=== PATIENT | male | born 1965 | race Caucasian/White ===

== ENCOUNTER 2022-06-23 12:26 | Outpatient (RCR) | payer OTHER, SELFPAY | END 2022-10-24 08:00 | disposition home or self-care (01) | LOC: HO.WCC 12:26 | PROVIDERS: PCP Family Medicine; Visit Provider Physician Assistant | DX: E11.621 Type 2 diabetes mellitus with foot ulcer (principal); L97.512 Non-pressure chronic ulcer of other part of right foot with fat layer exposed; E11.40 Type 2 diabetes mellitus with diabetic neuropathy, unspecified; L84 Corns and callosities; M60.80 Other myositis, unspecified site | CPT/HCPCS: 11042; 87070; 87077; 87186; 87205; 97597; 99212 ==

== ENCOUNTER → 2022-07-24 11:25 | Outpatient (BNVA) | payer OTHER, SELFPAY | PROVIDERS: PCP Family Medicine; Visit Provider Dietitian, Registered | DX: E11.9 Type 2 diabetes mellitus without complications (principal) | CPT/HCPCS: 97802 ==

== ENCOUNTER 2022-08-04 15:21 | Outpatient (REF) | payer OTHER, SELFPAY ==
--- NOTE | ~2022-08-04 | XR_ITS ---
EXAMINATION: XR FOOT, RIGHT CLINICAL INFORMATION: Osteomyelitis of the great toe COMPARISON: None TECHNIQUE: AP, lateral, and oblique views of the right foot. FINDINGS: Bone alignment is normal. No fracture or dislocation. Mild degenerative changes at the first MTP joint and midfoot with joint space narrowing and osteophyte formation. There is soft tissue swelling over the medial side of the IP joint of the great toe. There is increased bony periosteal reaction of the distal phalanx. Appearance is questionable for osteomyelitis or septic arthritis. There are are large calcaneal spurs. There is soft tissue arterial calcification. XR/XR foot RT min 3V IMPRESSION: Soft tissue swelling over the medial side of the IP joint of the great toe and increased bony periosteal reaction. Appearance is questionable for osteomyelitis or septic arthritis. Mild degenerative changes at the first MTP joint and midfoot. 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
[2022-08-04 15:48] LABS: MANUAL DIFF FLAG NO
[2022-08-04 16:09] LABS: Basophils Absolute Auto 0.1 X10*3/uL (0.0-0.2); Basophils Percent Auto 0.6 % (0-2); Eosinophils Absolute Auto 0.3 X10*3/uL (0.0-0.4); Eosinophils Percent Auto 2.4 % (0-4); Hemoglobin 14.5 g/dl (14.0-18.0); Imm Gran Abs Auto 0.09 X10*3/uL (0.00-0.03); Imm Gran Pct Auto 0.9 % (0.0-0.4); Lymphocytes Absolute Auto 2.5 X10*3/uL (1.2-4.9); Lymphocytes Percent Auto 23.8 % (20-40); Mean Corpuscular HGB Conc 33.7 g/dl (31.0-36.0); Mean Corpuscular Hemoglobin 29.8 pg (27.0-33.0); Mean Corpuscular Volume 88.3 fL (80.0-98.0); Monocytes Percent Auto 9.1 % (2-11); Neutrophils Absolute Auto 6.7 x10*3/uL (2.0-8.3); Neutrophils Percent Auto 63.2 % (45-73); Platelet Count 339 X10*3/uL (160-400); Red Blood Count 4.87 X10*6/uL (4.60-5.80); Red Cell Distribution Width 13.1 % (11.0-16.0); White Blood Count 10.6 X10*3/uL (4.8-10.8)
[2022-08-04 16:16] LABS: Estimated Average Glucose 200 mg/dL; Hemoglobin A1c % 8.6 %
[2022-08-04 16:44] LABS: Anion Gap 14 (12-20); Blood Urea Nitrogen 16 mg/dL (9-16); C Reactive Protein 0.55 mg/dL (< or = 0.50); Calcium 9.8 mg/dL (8.4-10.2); Carbon Dioxide 27 mmol/L (22-29); Chloride 105 mmol/L (96-108); Estimated Glomerular Filt Rate > 60; Glucose Random 117 mg/dL (60-115); Potassium 4.6 mmol/L (3.3-5.1); Sodium 141 mmol/L (135-145)
[2022-08-04 17:08] LABS: Erythrocyte Sedimentation Rate 10 MM/HR (0-15)
== END 2022-08-04 15:22 | disposition home or self-care (01) ==
LOC: HO.XRAY 15:21
PROVIDERS: PCP Physician Assistant; Visit Provider Physician Assistant
DX: L97.512 Non-pressure chronic ulcer of other part of right foot with fat layer exposed (principal); M25.774 Osteophyte, right foot
CPT/HCPCS: 36415; 73630; 80048; 83036; 84134; 85025; 85652; 86140

== ENCOUNTER → 2022-08-25 12:23 | Outpatient (BNVA) | payer OTHER, SELFPAY | PROVIDERS: PCP Internal Medicine; Visit Provider Dietitian, Registered | DX: E11.9 Type 2 diabetes mellitus without complications (principal); Z79.4 Long term (current) use of insulin | CPT/HCPCS: 97803 ==

== ENCOUNTER 2022-08-26 15:05 | Outpatient (REF) | payer OTHER, SELFPAY ==
--- NOTE | ~2022-08-26 | MR_ITS ---
EXAMINATION: MRI FOOT WITHOUT AND WITH CONTRAST, RIGHT CLINICAL INFORMATION: Nonhealing wound great toe. Evaluate for osteomyelitis. COMPARISON: X-ray of the right foot. TECHNIQUE: MRI of the right foot is performed without and with contrast. Contrast dose 10 mL of Gadavist given intravenously. FINDINGS: GREAT TOE: There is ill-defined abnormal signal in the plantar medial subcutaneous soft tissues overlying the distal phalanx and IP joint. This is manifested by decreased T1 heterogeneous, slightly heterogeneous increased signal on T2 and diffuse enhancement. The may be some subtle irregularity of the skin/superficial subcutaneous soft tissues. The underlying bone is normal in morphology and signal intensity. There is no joint effusion. No definite arthrosis. The metatarsophalangeal joint and tarsometatarsal joint are normal. Remaining visualized bone and joints are normal. MUSCLES/TENDONS: There is mild fatty infiltration and increased T2 signal throughout the muscles of the visualized foot. This is suggestive of denervation myositis. Remaining subcutaneous soft tissues are normal. Neurovascular structures normal MR/MR foot RT wo/w con IMPRESSION: 1. No evidence of osteomyelitis. 2. Abnormality of the subcutaneous soft tissues overlying the distal phalanx of the great toe. This likely reflects an area of cellulitis with possible overlying superficial ulceration. 3. Mild abnormality of the muscles of the visualized foot suggestive of denervation myositis.
== END 2022-08-26 15:06 | disposition home or self-care (01) ==
LOC: HO.MRI 15:05
PROVIDERS: PCP Physician Assistant; Visit Provider Physician Assistant
DX: L97.512 Non-pressure chronic ulcer of other part of right foot with fat layer exposed (principal)
CPT/HCPCS: 73720; A9585

== ENCOUNTER → 2022-10-29 09:18 | Outpatient (BNVA) | payer OTHER, SELFPAY | PROVIDERS: PCP Family Medicine; Visit Provider Dietitian, Registered | DX: E11.649 Type 2 diabetes mellitus with hypoglycemia without coma (principal); Z79.4 Long term (current) use of insulin; Z71.3 Dietary counseling and surveillance | CPT/HCPCS: 97803 ==

== ENCOUNTER 2022-12-01 08:28 | Outpatient (REF) | payer OTHER, SELFPAY ==
[2022-12-01 08:52] LABS: MANUAL DIFF FLAG NO
[2022-12-01 09:04] LABS: Basophils Percent Auto 0.6 % (0-2); Eosinophils Absolute Auto 0.1 X10*3/uL (0.0-0.4); Eosinophils Percent Auto 1.1 % (0-4); Hematocrit 44.8 % (42.0-52.0); Imm Gran Abs Auto 0.05 X10*3/uL (0.00-0.03); Imm Gran Pct Auto 0.9 % (0.0-0.4); Lymphocytes Percent Auto 19.1 % (20-40); Mean Corpuscular HGB Conc 33.5 g/dl (31.0-36.0); Mean Corpuscular Hemoglobin 29.7 pg (27.0-33.0); Mean Corpuscular Volume 88.7 fL (80.0-98.0); Mean Platelet Volume 10.4 fL (9.4-12.4); Monocytes Absolute Auto 0.9 X10*3/uL (0.1-1.2); Monocytes Percent Auto 17.2 % (2-11); Neutrophils Absolute Auto 3.2 x10*3/uL (2.0-8.3); Neutrophils Percent Auto 61.1 % (45-73); Platelet Count 261 X10*3/uL (160-400); Red Blood Count 5.05 X10*6/uL (4.60-5.80); Red Cell Distribution Width 13.5 % (11.0-16.0); White Blood Count 5.3 X10*3/uL (4.8-10.8)
[2022-12-01 09:40] LABS: Alanine Aminotransferase 32 U/L (0-40); Albumin Level 4.5 g/dL (3.5-5.0); Alkaline Phosphatase 98 U/L (39-117); Anion Gap 15 (12-20); Aspartate Amino Transferase 26 U/L (5-37); Blood Urea Nitrogen 15 mg/dL (9-16); Calcium 9.5 mg/dL (8.4-10.2); Carbon Dioxide 24 mmol/L (22-29); Chloride 103 mmol/L (96-108); Estimated Glomerular Filt Rate > 60; Glucose Random 224 mg/dL (60-115); Potassium 4.4 mmol/L (3.3-5.1); Sodium 138 mmol/L (135-145); Total Protein 7.6 g/dL (6.5-8.0)
[2022-12-01 09:47] LABS: Creatinine Urine 123.75 mg/dL; Microalbum/Creatinine Ratio Ur 12.9 ug/mg cr
[2022-12-01 10:04] LABS: Free T4 (Free Thyroxine) 1.09 ng/dL (0.71-1.85); Thyroid Stimulating Hormone 1.21 uIU/mL (0.32-4.0)
[2022-12-01 10:08] LABS: Folate 16.4 ng/mL (> or = 4.0); Prostate Specific Antigen Scr 0.22 ng/mL (<0.05-4.0); Vitamin B12 361 pg/mL (200-900)
[2022-12-06 11:03] LABS: Testosterone, Total 415 ng/dL (250-1100)
== END 2022-12-01 08:29 | disposition home or self-care (01) ==
LOC: HO.LAB 08:28
PROVIDERS: PCP Internal Medicine; Visit Provider Internal Medicine
DX: Z12.5 Encounter for screening for malignant neoplasm of prostate (principal); N52.9 Male erectile dysfunction, unspecified; L97.519 Non-pressure chronic ulcer of other part of right foot with unspecified severity; E11.621 Type 2 diabetes mellitus with foot ulcer; E11.65 Type 2 diabetes mellitus with hyperglycemia
CPT/HCPCS: 36415; 80053; 82043; 82607; 82746; 84153; 84403; 84439; 84443; 85025

== ENCOUNTER 2023-01-05 11:34 | Outpatient (AMB) | payer OTHER, SELFPAY ==
--- NOTE | 2023-01-05 11:42 | AM.OFFWIN_ITS ---
Intake Vital Signs 01/05/23 11:44 BP 118/66 Blood Pressure Location Rt brachial Position Sitting Pulse 108 H Pulse Source Pulse Oximeter Temp 98.2 F Temp Source Temporal Artery Scan Pulse Oximetry (%) 98 Oxygen Delivery Method Room Air Intake Visit Reasons: EP, Diarrhea, low abdominal Intake Note: patient here because he has had diarrhea for about 3 days which has been freque nt. He mentions he gets bad pains in lower abdomen. Patient Tobacco Use Status: Never used Tobacco Allergies No Known Allergies Allergy (Verified 01/18/23 06:39) Medication List - Last Reconciled 01/18/23 by Shekhar Avila MD apple cider vinegar mg PO atorvastatin 10 mg PO BEDTIME cholecalciferol (vitamin D3) 25 mcg PO DAILY insulin glargine (Lantus Solostar U-100 Insulin) 50 units (0.5 mL) subcut QPM insulin lispro (Humalog KwikPen (U-100) Insulin) 30 units subcut TID lisinopril 5 mg PO DAILY metformin 1,000 mg PO BID multivitamin 1 tab PO DAILY niacin 100 mg PO BEDTIME omega 9-sne-nzu-fish oil 100-160-1,000 mg (Fish Oil) caps PO sildenafil 100 mg PO DAILY PRN turmeric mg PO Do you need a note to return to daycare/school/sports/work: No HPI EP, Diarrhea, low abdominal HPI Details 57-year-old male presents to the office for a sick visit. Patient is complaining of lower abdominal pain with diarrhea. Occasional cramping sensations. No fevers or chills. No weight loss. [facility] Medical History (Updated 01/12/23 @ 09:52 by JUANIS García) Asthma Surgical History (Updated 11/13/22 @ 14:28 by Seth Boyer MD) Aftercare following bilateral shoulder joint replacement surgery History of appendectomy Hx of tonsillectomy Family History (Updated 11/13/22 @ 14:14 by Leidy Rogers [facility]) Mother Emphysema lung Father Heart failure Brother Substance use disorder Mental health disorder Brother No problems noted. Brother No problems noted. Sister No problems noted. Daughter No problems noted. Son No problems noted. Son No problems noted. Social History (Updated 11/13/22 @ 14:29 by HANNAH Perkins Housing: House Alcohol intake: current Patient Tobacco Use Status: Never used Tobacco e-Cigarette/Vaping Use: Never Used Second Hand Smoke Exposure: No Current occupational status: employed Cognitive needs: No Hearing needs: No Vision needs: No Physical Exam Vital Signs: Last Vital Signs Temp 98.2 F 01/05/23 11:44 Pulse 108 H 01/05/23 11:44 BP 118/66 01/05/23 11:44 Pulse Ox 98 01/05/23 11:44 Oxygen Delivery Method Room Air 01/05/23 11:44 Const General: cooperative and healthy appearing Nutritional Appearance: well nourished Orientation/consciousness: patient oriented x3 Limitations: no limitations HEENT Head: Yes normal to inspection Eyes General: appearance normal, both eyes and all related structures Neck Neck: Yes normal visual inspection Chest Chest palpation & inspection: normal palpation of entire chest wall Resp Effort & Inspection: normal respiratory effort GI Other: Abdomen: Bowel sounds are normal. Nonspecific discomfort in the lower abdominal area. Neuro General: patient oriented x3 Assessment & Plan Assessment & Plan (1) Abdominal pain: Code(s): R10.9 - Unspecified abdominal pain Plan: Antibiotics started. Presumed diagnosis of colitis. Soft diet for the next few days. If symptoms do not improve to follow-up here. Orders: Orders Basic Metabolic Panel 01/05/23 R10.9 - Unspecified abdominal pain Liver Panel 01/05/23 R10.9 - Unspecified abdominal pain Complete Blood Count no Diff 01/05/23 R10.9 - Unspecified abdominal pain Erythrocyte Sedimentation Rate 01/05/23 R10.9 - Unspecified abdominal pain Medications: New ciprofloxacin HCl 500 mg PO BID 14 tabs 0RF Coding Level of Care Code Est Pt Level 3 (84049) Diagnoses Abdominal pain R10.9
[2023-01-05 11:44] VITALS: BP 118/66; PULSE 108; TEMP 36.8; O2SAT 98
== END 2023-01-05 13:40 | disposition home or self-care (01) ==
PROVIDERS: PCP Internal Medicine; Visit Provider Internal Medicine
DX: R10.9 Unspecified abdominal pain (principal)
CPT/HCPCS: 99213

== ENCOUNTER 2023-01-05 12:57 | Outpatient (REF) | payer OTHER, SELFPAY ==
[2023-01-05 16:21] LABS: Hematocrit 46.4 % (42.0-52.0); Hemoglobin 15.1 g/dl (14.0-18.0); Mean Corpuscular HGB Conc 32.5 g/dl (31.0-36.0); Mean Corpuscular Hemoglobin 29.5 pg (27.0-33.0); Mean Corpuscular Volume 90.6 fL (80.0-98.0); Mean Platelet Volume 10.9 fL (9.4-12.4); Platelet Count 304 X10*3/uL (160-400); Red Blood Count 5.12 X10*6/uL (4.60-5.80); Red Cell Distribution Width 13.3 % (11.0-16.0); White Blood Count 11.6 X10*3/uL (4.8-10.8)
[2023-01-05 16:57] LABS: Alanine Aminotransferase 27 U/L (0-40); Albumin Level 4.6 g/dL (3.5-5.0); Alkaline Phosphatase 112 U/L (39-117); Anion Gap 14 (12-20); Aspartate Amino Transferase 19 U/L (5-37); Bilirubin Direct 0.2 mg/dL (0.0-0.5); Bilirubin Total 0.7 mg/dL (0.0-1.0); Blood Urea Nitrogen 15 mg/dL (9-16); Calcium 9.8 mg/dL (8.4-10.2); Carbon Dioxide 24 mmol/L (22-29); Chloride 103 mmol/L (96-108); Estimated Glomerular Filt Rate > 60; Glucose Random 181 mg/dL (60-115); Potassium 4.4 mmol/L (3.3-5.1); Sodium 137 mmol/L (135-145); Total Protein 7.6 g/dL (6.5-8.0)
[2023-01-05 16:58] LABS: Erythrocyte Sedimentation Rate 16 MM/HR (0-15)
[2023-01-06 12:18] LABS: Creatinine Urine 143.46 mg/dL
== END 2023-01-05 12:58 | disposition home or self-care (01) ==
LOC: HO.HMGCLDS 12:57
PROVIDERS: PCP Internal Medicine; Visit Provider Internal Medicine
DX: R10.9 Unspecified abdominal pain (principal)
CPT/HCPCS: 36415; 80048; 80076; 85027; 85652

== ENCOUNTER 2023-01-12 07:25 | Outpatient (AMB) | payer OTHER, SELFPAY ==
[2023-01-12 07:35] VITALS: BP 138/82; PULSE 72; O2SAT 97; BMI 32.7
--- NOTE | 2023-01-12 07:35 | MHC.PC.OV ---
Vital Signs 01/12/23 07:35 Height 5 ft 10 in Weight 228 lb BMI 32.7 BP 138/82 Blood Pressure Location Lt brachial Position Sitting Pulse 72 Pulse Source Pulse Oximeter Pulse Oximetry (%) 97 Oxygen Delivery Method Room Air Intake Visit Reasons: diarrhea for 2 weeks Allergies No Known Allergies Allergy (Verified 01/12/23 07:35) Tobacco use date assessed: 11/13/22 Dental Screening Dental Screen Date: 01/12/23 Did you have a dental visit in the last 12 months?: Yes Did you have a dental problem in the last 6 months where you did not have access to dental care?: No Was dental information given to patient?: Patient has dentist HPI HPI Comments History of Present Illness Details 57-year-old male past medical history significant for hypercholesteremia, T2DM, ED and obesity. Patient of Dr. Boyer last seen in November. Patient presents today for diarrhea x 2 weeks. Patient was seen in the walk in clinic for this on 01/05/23 labs were obtained wBC slightly elevated and ESR . otherwise unremarkable. Patient was treated with ciproflaxacin for possible diverticulitis. Patient reports yesterday x 2 and seems to be forming up. Denies abd pain, denies blood in stool. states stool is dark but not black or tarry. Discussed further testing with stool studies and referral to GI. Patient reports given his stools starting to form up he will hold off on further stool studies and referral to GI at this time. Last year Colonscopy 1 year ago: Normal FORMERLY [facility] Medical History (Updated 01/12/23 @ 09:52 by JUANIS García) Asthma Surgical History (Updated 11/13/22 @ 14:28 by Seth Boyer MD) Aftercare following bilateral shoulder joint replacement surgery History of appendectomy Hx of tonsillectomy Family History (Updated 11/13/22 @ 14:14 by Leidy Rogers CMA) Mother Emphysema lung Father Heart failure Brother Substance use disorder Mental health disorder Brother No problems noted. Brother No problems noted. Sister No problems noted. Daughter No problems noted. Son No problems noted. Son No problems noted. Social History (Updated 11/13/22 @ 14:29 by Seth Boyer MD) Housing: House Alcohol intake: current Patient Tobacco Use Status: Never used Tobacco e-Cigarette/Vaping Use: Never Used Second Hand Smoke Exposure: No Current occupational status: employed Cognitive needs: No Hearing needs: No Vision needs: No Questionnaire PHQ-9 Over the last 2 weeks, how often have you been bothered by any of the following problems? 1. Little interest or pleasure in doing things: not at all 2. Feeling down, depressed, or hopeless: not at all 3. Trouble falling or staying asleep, or sleeping too much: not at all 4. Feeling tired or having little energy: not at all 5. Poor appetite or overeating: not at all 6. Feeling bad about yourself - or that you are a failure or have let yourself or your family down: not at all 7. Trouble concentrating on things, such as reading the newspaper or watching television: not at all 8. Moving or speaking so slowly that other people could have noticed. Or the opposite - being so fidgety or restless that you have been moving around a lot more than usual: not at all 9. Thoughts that you would be better off or of hurting yourself in some way: not at all Total score: 0 Depression Screening Interpretation: Negative Source: Developed by Drs. Yovani Collazo, Deion Chapman and colleagues, with an educational valeriy from [employer]. Thrive Questionnaire Date Thrive assessed: 11/13/22 AUDIT C Alcohol Use Questionnaire (AUDIT-C) 1. How often do you have a drink containing alcohol?: 2-3 times a week 2. How many drinks containing alcohol do you have on a typical day when you are drinking?: 1 or 2 3. How often do you have six or more drinks on one occasion?: Never Total Score: 3 ELIU-7 AMB Questionnaire ELIU-7 Date ELIU - 7 assessed: 11/13/22 Source: Developed by Drs. Yovani Collazo, Deion Chapman and colleagues, with an educational valeriy from [employer]. Review of Systems Const Denies chills, Denies fatigue, Denies fever(s) and Denies poor appetite Eyes Denies no additional complaints ENT Reports Normal hearing present Card Denies chest pain, Denies syncope, Denies rapid heart rate and Denies dyspnea Resp Denies cough and Denies dyspnea GI Denies change in stool character, Denies constipation, Denies diarrhea, Denies nausea and Denies vomiting Denies dysuria, Denies urinary frequency and Denies urinary urgency Neuro Reports Normal hearing present, Denies confusion and Denies syncope Psych Denies confusion Endo Denies fatigue Physical exam (Primary Care) Vital Signs: Last Vital Signs Pulse 72 01/12/23 07:35 BP 138/82 01/12/23 07:35 Pulse Ox 97 01/12/23 07:35 Oxygen Delivery Method Room Air 01/12/23 07:35 BMI result Body Mass Index 32.7 Tobacco/Smoking Status: Tobacco use Status Tobacco use date assessed 11/13/22 01/12/23 07:39 Patient Tobacco Use Status Never used Tobacco 01/12/23 07:39 e-Cigarette/Vaping Use Never Used 01/12/23 07:39 PHQ-9: PHQ-9 Score PHQ-9: Total score 0 01/12/23 07:45 Depression Screening Interpretation: Negative Thrive Assessment: Date of Thrive Assessment Date Thrive assessed 11/13/22 01/12/23 07:39 Const General: No confusion Orientation/consciousness: No confusion HENMT Head: Yes normocephalic and Yes atraumatic Eyes Conjunctivae: conjunctivae normal Chest Chest palpation & inspection: normal inspection of the chest Resp Effort & Inspection: normal respiratory effort Auscultation: clear to auscultation bilaterally, no crackles, no rhonchi and no wheezes Cardio Rate: regular rate Rhythm: regular rhythm Heart sounds: S1 normal heart sound present and S2 normal heart sound present Peripheral pulses: dorsalis pedis present GI Inspection: Yes normal to inspection Neuro General: No confusion Cranial nerves: Yes Normal hearing present Extrem General: No edema Assessment and Plan Assessment & Plan (1) T2DM (type 2 diabetes mellitus): Code(s): E11.9 - Type 2 diabetes mellitus without complications Plan: Continue on current medications. Continue follow low-carbohydrate diet (2) Hypercholesterolemia: Code(s): E78.00 - Pure hypercholesterolemia, unspecified Plan: Continue on atorvastatin 10 mg at bedtime. Avoid fried foods, chicken skin, eggs, butter,margarine, pastries and? red meat. (3) Diarrhea: Code(s): R19.7 - Diarrhea, unspecified Plan: Given patient states too low starting to form up only had 2 bowel movements yesterday which is normal for him he will hold off on further workup this time with stool studies and referral to Gastroenterology. Signs and symptoms reviewed with patient when to follow-up with PCP or seek medical attention Plan Keep scheduled follow up with pcp in 1 month Coding Level of Care Code Est Pt Level 3 (25863) Diagnoses T2DM (type 2 diabetes mellitus) E11.9 Hypercholesterolemia E78.00 Diarrhea R19.7
== END 2023-01-12 08:32 | disposition home or self-care (01) ==
PROVIDERS: PCP Internal Medicine; Visit Provider Nurse Practitioner Family
DX: E11.9 Type 2 diabetes mellitus without complications (principal); E78.00 Pure hypercholesterolemia, unspecified; R19.7 Diarrhea, unspecified
CPT/HCPCS: 99213

== ENCOUNTER 2023-02-03 09:51 | Outpatient (AMB) | payer OTHER, SELFPAY ==
--- NOTE | 2023-02-03 10:19 | A.OFFVIS_ITS ---
Intake Intake Visit Reasons: T2DM Allergies No Known Allergies Allergy (Verified 01/18/23 06:39) HPI Nutrition Presentation Details Pt presents for MNT f/u for T2DM Pt reports doing well. Reports having better understanding of relationship of BG to carb and relationship of prandial insulin. No BG download available to review today. Has met with new PCP, most recent A1c at 6.9 % on 11/2022. Typical meal: large cup of coffee black no sugar added 3:30 am L: [employer] Mediterranean salad pork breaded and salad or Dinner : soups with rice/beans Lithuanian Tea varies turmeric, applecider ,sometimes sweets , glucerna shake Most Recent Diabetes Results: Microalb/Creat Ratio 12.9 ug/mg cr 12/01/22 Creatinine 0.81 mg/dL (0.5-1.4) 01/05/23 Blood Urea Nitrogen 15 mg/dL (9-16) 01/05/23 Sodium 137 mmol/L (135-145) 01/05/23 Potassium 4.4 mmol/L (3.3-5.1) 01/05/23 Chloride 103 mmol/L (96-108) 01/05/23 Carbon Dioxide 24 mmol/L (22-29) 01/05/23 Calcium 9.8 mg/dL (8.4-10.2) 01/05/23 AST 19 U/L (5-37) 01/05/23 ALT 27 U/L (0-40) 01/05/23 Total Protein 7.6 g/dL (6.5-8.0) 01/05/23 Albumin 4.6 g/dL (3.5-5.0) 01/05/23 PENDING SALE TO [facility] Medical History (Updated 01/12/23 @ 09:52 by JUANIS García) Asthma Surgical History (Updated 11/13/22 @ 14:28 by Seth Boyer MD) Aftercare following bilateral shoulder joint replacement surgery History of appendectomy Hx of tonsillectomy Family History (Updated 11/13/22 @ 14:14 by Leidy Rogers CMA) Mother Emphysema lung Father Heart failure Brother Substance use disorder Mental health disorder Brother No problems noted. Brother No problems noted. Sister No problems noted. Daughter No problems noted. Son No problems noted. Son No problems noted. Social History (Updated 11/13/22 @ 14:29 by Seth Boyer MD) Housing: House Alcohol intake: current Patient Tobacco Use Status: Never used Tobacco e-Cigarette/Vaping Use: Never Used Second Hand Smoke Exposure: No Current occupational status: employed Cognitive needs: No Hearing needs: No Vision needs: No Assessment & Plan Assessment & Plan (1) T2DM (type 2 diabetes mellitus): Code(s): E11.9 - Type 2 diabetes mellitus without complications Plan: Review role of protein in diet, wound healing, continue healthy plate method concepts ? Used wt : 103 kg Est kcal as per MSJ: 2231-250 = 1918 (40% carb, 30% fat/prot) Est fluid needs: 2575 ml/d (25 ml/kg bw) Rec fiber: increase to 8-10 g per day and gradually increase to 35 g or as tolerated Rec Na: < 2000 mg /d Educate patient on: (R= Reviewed, V = verbalizes understanding N/R= Needs review N/A= not applicable) * Food sources of carbohydrates and serving adequate serving sizes : R , V * Difference between complex carbohydrates and simple carbohydrates, role of fiber: R * protein sources of foods and relationship to wound healing, gluc control: R, V * Differences between fats (MUFA/PUFA/saturated fats, trans fats) and food sources of various fats: R, Basic info * Food sources of sodium and salt and healthy modifications for heart health and kidney health: N/R * Vitamins and minerals: R * How to interpret food labels: R * Healthy Plate method concept: R * Physical activity: benefits and precaution: R, * Blood glucose goal R: fasting blood glucose 80-130, 2 hours after a meal : 80-180 * Risks associated with hypoglycemia, Prevention of hypoglycemia, treatment: R, V * Relationship of caffeine and bg level: R Patient Instructions: Continue following healthy plate method, counting g of carbohydrates goal 75-90 at meal time, Reduce snack 0-15 g carb Reduce on caffeine intake keep hydrated by having water with meals /snacks Coding Level of Care Code Nutr Indiv Subseq (13398) Diagnoses T2DM (type 2 diabetes mellitus) E11.9 Time Spent (min) 20
== END 2023-02-03 10:46 | disposition home or self-care (01) ==
PROVIDERS: PCP Internal Medicine; Referring Provider Internal Medicine; Visit Provider Dietitian, Registered
DX: E11.9 Type 2 diabetes mellitus without complications (principal)

== ENCOUNTER → 2023-02-03 09:51 | Outpatient (BNVA) | payer OTHER, SELFPAY | PROVIDERS: Visit Provider Dietitian, Registered | DX: E11.9 Type 2 diabetes mellitus without complications (principal); Z71.3 Dietary counseling and surveillance | CPT/HCPCS: 97803 ==

== ENCOUNTER 2023-03-04 13:34 | Outpatient (AMB) | payer OTHER, SELFPAY ==
[2023-03-04 13:45] VITALS: BP 138/72; PULSE 80; O2SAT 98; BMI 32.9
--- NOTE | 2023-03-04 13:45 | A.OFFPC_ITS ---
Vital Signs 03/04/23 13:45 Height 5 ft 10 in Weight 229 lb BMI 32.9 BP 138/72 Blood Pressure Location Lt brachial Position Sitting Pulse 80 Pulse Source Pulse Oximeter Pulse Oximetry (%) 98 Oxygen Delivery Method Room Air Intake Visit Reasons: PE Allergies No Known Allergies Allergy (Verified 03/04/23 13:45) Medication List - Last Reconciled 03/04/23 by Seth Boyer MD apple cider vinegar mg PO atorvastatin 10 mg PO BEDTIME cholecalciferol (vitamin D3) 25 mcg PO DAILY insulin glargine (Lantus Solostar U-100 Insulin) 50 units (0.5 mL) subcut QPM insulin lispro (Humalog KwikPen (U-100) Insulin) 30 units (0.3 mL) subcut TID lisinopril 5 mg PO DAILY metformin 1,000 mg PO BID multivitamin 1 tab PO DAILY niacin 100 mg PO BEDTIME sildenafil 100 mg PO DAILY PRN turmeric mg PO Tobacco use date assessed: 11/13/22 Dental Screening Dental Screen Date: 03/04/23 Did you have a dental visit in the last 12 months?: Yes Did you have a dental problem in the last 6 months where you did not have access to dental care?: No Was dental information given to patient?: Patient has dentist HPI PE HPI Details 57-year-old obese male with diabetes raji litus hypercholesterolemia coming in for physical exam. Last seen in January 2023 patient is up-to-date with colonoscopy. Patient has right foot toe wound seeing wound care [facility] Medical History (Updated 03/04/23 @ 14:40 by Seth Boyer MD) Diarrhea Blood pressure elevated without history of HTN Asthma Surgical History (Updated 11/13/22 @ 14:28 by Seth Boyer MD) Hx of tonsillectomy Aftercare following bilateral shoulder joint replacement surgery History of appendectomy Family History (Updated 11/13/22 @ 14:14 by Leidy Rogers CMA) Mother Emphysema lung Father Heart failure Brother Substance use disorder Mental health disorder Brother No problems noted. Brother No problems noted. Sister No problems noted. Daughter No problems noted. Son No problems noted. Son No problems noted. Social History (Updated 03/04/23 @ 14:27 by Seth Boyer MD) Housing: House Alcohol intake: current Patient Tobacco Use Status: Never used Tobacco e-Cigarette/Vaping Use: Never Used Second Hand Smoke Exposure: No Current occupational status: employed Cognitive needs: No Hearing needs: No Vision needs: Yes Questionnaire PHQ-9 Over the last 2 weeks, how often have you been bothered by any of the following problems? 1. Little interest or pleasure in doing things: not at all 2. Feeling down, depressed, or hopeless: not at all 3. Trouble falling or staying asleep, or sleeping too much: not at all 4. Feeling tired or having little energy: not at all 5. Poor appetite or overeating: not at all 6. Feeling bad about yourself - or that you are a failure or have let yourself or your family down: not at all 7. Trouble concentrating on things, such as reading the newspaper or watching television: not at all 8. Moving or speaking so slowly that other people could have noticed. Or the opposite - being so fidgety or restless that you have been moving around a lot more than usual: not at all 9. Thoughts that you would be better off or of hurting yourself in some way: not at all Total score: 0 Depression Screening Interpretation: Negative Source: Developed by Drs. Yovani Collazo, Deion Chapman and colleagues, with an educational valeriy from [employer]. Thrive Questionnaire Date Thrive assessed: 11/13/22 AUDIT C Alcohol Use Questionnaire (AUDIT-C) 1. How often do you have a drink containing alcohol?: 2-3 times a week 2. How many drinks containing alcohol do you have on a typical day when you are drinking?: 1 or 2 3. How often do you have six or more drinks on one occasion?: Never Total Score: 3 ELIU-7 AMB Questionnaire ELIU-7 Date ELIU - 7 assessed: 11/13/22 Source: Developed by Drs. Yovani Collazo, Deion Chapman and colleagues, with an educational valeriy from [employer]. Review of Systems Const Denies poor appetite and Denies weakness Eyes Denies no additional complaints ENT Reports Normal hearing present, Denies dizziness, Denies nasal congestion, Denies tinnitus and Denies sore throat Card Denies chest pain, Denies syncope, Denies rapid heart rate and Denies dyspnea Resp Denies cough and Denies dyspnea GI Denies change in stool character, Reports constipation, Denies diarrhea, Denies nausea and Denies vomiting Denies dysuria and Denies urinary frequency Neuro Reports Normal hearing present, Denies confusion, Denies dizziness, Denies syncope and Denies weakness Psych Denies confusion Physical exam (Primary Care) Vital Signs: Last Vital Signs Pulse 80 03/04/23 13:45 BP 138/72 03/04/23 13:45 Pulse Ox 98 03/04/23 13:45 Oxygen Delivery Method Room Air 03/04/23 13:45 BMI result Body Mass Index 32.9 Tobacco/Smoking Status: Tobacco use Status Tobacco use date assessed 11/13/22 03/04/23 13:46 Patient Tobacco Use Status Never used Tobacco 03/04/23 13:46 e-Cigarette/Vaping Use Never Used 03/04/23 13:46 rectal held due to recent coln test PHQ-9: PHQ-9 Score PHQ-9: Total score 0 03/04/23 14:22 Depression Screening Interpretation: Negative Thrive Assessment: Date of Thrive Assessment Date Thrive assessed 11/13/22 03/04/23 13:46 Const General: alert and awake; No confusion Orientation/consciousness: No confusion HENMT Other: impacted cerumen bilateral Head: Yes normocephalic Ears: external ears normal Face and sinus: Yes normal facial exam Mouth: moist mucous membranes Throat: Yes tonsils normal Eyes Conjunctivae: conjunctivae normal Pupils: Equal, round and reactive pupils present and Pupil accommodation reflex normal Direct Ophthalmoscopy: normal light reflex Neck Neck: No lymphadenopathy Thyroid: Thyroid normal Chest Chest palpation & inspection: normal inspection of the chest Resp Effort & Inspection: normal respiratory effort and no audible wheezes Auscultation: clear to auscultation bilaterally, no crackles, no wheezes and lung sounds not diminished Cardio Rate: regular rate Rhythm: regular rhythm Peripheral pulses: radial pulses present and dorsalis pedis present GI Palpation (GI): no masses Auscultation: normal bowel sounds and normoactive bowel sounds Rectal Exam - Male: Yes deferred Skin General skin exam: no rashes or lesions noted Rashes: no rashes Neuro General: deep tendon reflexes 2+ bilaterally and No confusion Cranial nerves: Yes Equal, round and reactive pupils present, Yes Midline tongue present, Yes Normal hearing present and Yes Ability to bilaterally elevate shoulders present Cognition (Neuro): normal cognition Gait exam (Neuro): Normal gait present Motor exam (neuro): 5/5 motor strength present throughout Deep tendon reflexes (DTR's): Right brachioradialis reflex intensity grade: 2+, Left brachioradialis reflex intensity grade: 2+, Right patellar reflex intensity grade: 2+ and Left patellar reflex intensity grade: 2+ Extrem General: No edema Results AMB Hemoglobin A1c AMB Hemoglobin A1c 7.4 % Last Edit by Leidy Rogers CMA on 03/04/23 14 :05 Results Reviewed Results Reviewed: Laboratory Last Values Hgb A1c (Clinic) 7.4 % (4.0-6.0) H 03/04/23 13:46 Assessment and Plan Assessment & Plan (1) Annual physical exam: Code(s): Z00.00 - Encounter for general adult medical examination without abnormal findings (2) Type 2 diabetes mellitus with hyperglycemia: Code(s): E11.65 - Type 2 diabetes mellitus with hyperglycemia Plan: Decrease the amount of carbohydrate intake, pasta, bread, rice and potatoes are all sugar and that is aside from all the sweet stuff, remember that fruits are good but they are Sweet also. Hemoglobin A1c goal of less than 6.5. Patient on Lantus and Humalog and metformin a 1000 mg twice a day. Lisinopril 5 mg once a day (3) Hypercholesterolemia: Code(s): E78.00 - Pure hypercholesterolemia, unspecified Plan: Avoid fried foods, chicken skin, eggs, butter margarine, pastries and meat. Be it pork or. beef they have a lot of cholesterol LDL goal of less than 100 and triglyceride of less than 150 patient is taking atorvastatin 10 mg once a day but I do not see any blood work (4) Obesity (BMI 30-39.9): Code(s): E66.9 - Obesity, unspecified Plan: Diet and exercise (5) Impacted cerumen of both ears: Code(s): H61.23 - Impacted cerumen, bilateral Plan: will try over the counter Orders: Orders AMB Hemoglobin A1c Today Z13.9 - Encounter for screening, unspecified Lipid Panel Today E78.00 - Pure hypercholesterolemia, unspecified Medications: New semaglutide (Ozempic) for 4 weeks 0.25 mg (0.368 mL) subcut QWEEK 3 mL 2RF E11.65 - Type 2 diabetes mellitus with hyperglycemia atorvastatin 10 mg PO BEDTIME 90 tabs 3RF E11.65 - Type 2 diabetes mellitus with hyperglycemia lisinopril 5 mg PO DAILY 90 tabs 3RF E11.65 - Type 2 diabetes mellitus with hyperglycemia metformin 1,000 mg PO BID 180 tabs 3RF E11.65 - Type 2 diabetes mellitus with hyperglycemia Changed From insulin glargine (Lantus Solostar U-100 Insulin) 50 units (0.5 mL) subcut QPM 15 mL 11RF E11.9 - Type 2 diabetes mellitus without complications To insulin glargine (Lantus Solostar U-100 Insulin) or as directed 50 units (0.5 mL) subcut QPM 15 ea 3RF E11.9 - Type 2 diabetes mellitus without complications From insulin lispro (Humalog KwikPen (U-100) Insulin) 30 units (0.3 mL) subcut TID 30 mL 3RF E11.9 - Type 2 diabetes mellitus without complications To insulin lispro (Humalog KwikPen (U-100) Insulin) or as directed 30 units (0.3 mL) subcut TID 45 mL 3RF E11.9 - Type 2 diabetes mellitus without complications Refilled sildenafil administer 30 minutes to 4 hours before activity 100 mg PO DAILY PRN 14 tabs 11RF sexual activity N52.9 - Male erectile dysfunction, unspecified Coding Level of Care Code Est Pt Prev Care 40-64y(83144) Diagnoses Annual physical exam Z00.00 Type 2 diabetes mellitus with hyperglycemia E11.65 Hypercholesterolemia E78.00 Obesity (BMI 30-39.9) E66.9 Impacted cerumen of both ears H61.23
== END 2023-03-04 14:49 | disposition home or self-care (01) ==
PROVIDERS: PCP Internal Medicine; Visit Provider Internal Medicine
DX: Z00.00 Encounter for general adult medical examination without abnormal findings (principal); E11.65 Type 2 diabetes mellitus with hyperglycemia; Z68.32 Body mass index [BMI] 32.0-32.9, adult; E66.9 Obesity, unspecified; E78.00 Pure hypercholesterolemia, unspecified; H61.23 Impacted cerumen, bilateral
CPT/HCPCS: 83036; 99396

== ENCOUNTER 2023-06-23 12:45 | Outpatient (AMB) | payer OTHER, SELFPAY ==
[2023-06-23 12:47] VITALS: BP 168/98; PULSE 92; O2SAT 98; BMI 32.4
--- NOTE | 2023-06-23 12:47 | A.OFFPC_ITS ---
Vital Signs 06/23/23 12:47 Height 5 ft 10 in Weight 226 lb BMI 32.4 BP 168/98 H Blood Pressure Location Lt brachial Position Sitting Pulse 92 Pulse Source Pulse Oximeter Pulse Oximetry (%) 98 Oxygen Delivery Method Room Air Intake Visit Reasons: DM Intake Note: Patient just had coffee at daughter house. Allergies No Known Allergies Allergy (Verified 06/23/23 12:47) Medication List - Last Reconciled 06/23/23 by Seth Boyer MD apple cider vinegar mg PO atorvastatin 10 mg PO BEDTIME cholecalciferol (vitamin D3) 25 mcg PO DAILY flash glucose sensor (FreeStyle Pushpa 2 Sensor kit) As directed insulin glargine (Lantus Solostar U-100 Insulin) 50 units (0.5 mL) subcut QPM insulin lispro (Humalog KwikPen (U-100) Insulin) 30 units (0.3 mL) subcut TID lisinopril 5 mg PO DAILY metformin 1,000 mg PO BID multivitamin 1 tab PO DAILY niacin 100 mg PO BEDTIME semaglutide 0.5 mg (0.375 mL) subcut QWEEK 30 days sildenafil 100 mg PO DAILY PRN turmeric mg PO Tobacco use date assessed: 06/23/23 Dental Screening Dental Screen Date: 06/23/23 Did you have a dental visit in the last 12 months?: Yes Did you have a dental problem in the last 6 months where you did not have access to dental care?: No Was dental information given to patient?: Patient has dentist HPI DM HPI Details 58-year-old male obese with diabetes raji litus hypercholesterolemia coming in for follow-up last seen in February 2023. Colonoscopy is up-to-date [facility] Medical History (Updated 06/23/23 @ 13:55 by Seth Boyer MD) Blood pressure elevated without history of HTN Diarrhea Asthma Surgical History (Updated 11/13/22 @ 14:28 by Seth Boyer MD) Hx of tonsillectomy Aftercare following bilateral shoulder joint replacement surgery History of appendectomy Family History (Updated 11/13/22 @ 14:14 by Leidy Rogers CMA) Mother Emphysema lung Father Heart failure Brother Substance use disorder Mental health disorder Brother No problems noted. Brother No problems noted. Sister No problems noted. Daughter No problems noted. Son No problems noted. Son No problems noted. Social History (Updated 03/04/23 @ 14:27 by Seth Boyer MD) Housing: House Alcohol intake: current Patient Tobacco Use Status: Never used Tobacco e-Cigarette/Vaping Use: Never Used Second Hand Smoke Exposure: No Current occupational status: employed Cognitive needs: No Hearing needs: No Vision needs: Yes Questionnaire PHQ-9 Over the last 2 weeks, how often have you been bothered by any of the following problems? 1. Little interest or pleasure in doing things: not at all 2. Feeling down, depressed, or hopeless: not at all 3. Trouble falling or staying asleep, or sleeping too much: not at all 4. Feeling tired or having little energy: not at all 5. Poor appetite or overeating: not at all 6. Feeling bad about yourself - or that you are a failure or have let yourself or your family down: not at all 7. Trouble concentrating on things, such as reading the newspaper or watching television: not at all 8. Moving or speaking so slowly that other people could have noticed. Or the opposite - being so fidgety or restless that you have been moving around a lot more than usual: not at all 9. Thoughts that you would be better off or of hurting yourself in some way: not at all Total score: 0 Depression Screening Interpretation: Negative Depression Screening Done: Yes Source: Developed by Drs. Yovani Collazo, Ees Baxter, Deion Estrella and colleagues, with an educational valeriy from [employer]. Thrive Questionnaire Date Thrive assessed: 06/23/23 I am a: Patient What is your living situation today?: I have a steady place to live Within the past 12 months, did the food you bought not last and you didn't have the money to get more?: Never true Within the past 12 months, did you worry whether your food would run out before you got money to buy more?: Never true Do you have trouble paying for medicines?: No Do you have trouble getting transportation to medical appointments?: No Do you have trouble paying your heating and electricity bill?: No Do you have trouble taking care of your child, family member or friend?: No Do you have trouble with day-to-day activities such as bathing, preparing meals, shopping, managing finances, etc.?: No Are you currently unemployed and looking for a job?: No Are you interested in more education?: No Currently or been in a relationship where the following occur: no concerns reported AUDIT C Alcohol Use Questionnaire (AUDIT-C) 1. How often do you have a drink containing alcohol?: 2-3 times a week 2. How many drinks containing alcohol do you have on a typical day when you are drinking?: 1 or 2 3. How often do you have six or more drinks on one occasion?: Never Total Score: 3 ELIU-7 AMB Questionnaire ELIU-7 Date ELIU - 7 assessed: 06/23/23 Feeling nervous, anxious, or on edge: 0 = Not at all Not being able to stop or control worryin = Not at all Worrying too much about different things: 0 = Not at all Trouble relaxin = Not at all Being so restless that it is hard to sit still: 0 = Not at all Becoming easily annoyed or irritable: 0 = Not at all Feeling afraid as if something awful might happen: 0 = Not at all Total ELIU-7 score (0-4 normal; 5-9 mild; 10-14 moderate; 15-21 severe): 0 Source: Developed by Drs. Yovani Collazo, Ese Baxter, Deion Estrella and colleagues, with an educational valeriy from [employer]. Physical exam (Primary Care) Vital Signs: Last Vital Signs Pulse 92 06/23/23 12:47 BP 168/98 H 06/23/23 12:47 Pulse Ox 98 06/23/23 12:47 Oxygen Delivery Method Room Air 06/23/23 12:47 BMI result Body Mass Index 32.4 Tobacco/Smoking Status: Tobacco use Status Tobacco use date assessed 06/23/23 06/23/23 12:48 Patient Tobacco Use Status Never used Tobacco 06/23/23 12:48 e-Cigarette/Vaping Use Never Used 06/23/23 12:48 PHQ-9: PHQ-9 Score PHQ-9: Total score 0 06/23/23 13:46 Depression Screening Interpretation: Negative Thrive Assessment: Date of Thrive Assessment Date Thrive assessed 06/23/23 06/23/23 12:48 Currently or been in a relationship where the following occur: no concerns reported Const General: alert; No acute distress Eyes Conjunctivae: conjunctivae normal Resp Auscultation: clear to auscultation bilaterally Cardio Rate: regular rate Rhythm: regular rhythm GI Inspection: Yes normal to inspection Extrem General: Yes normal to inspection and No edema Results AMB Hemoglobin A1c AMB Hemoglobin A1c 8.2 % Last Edit by Leidy Rogers CMA on 06/23/23 13 :17 Results Reviewed Results Reviewed: Laboratory Last Values Hgb A1c (Clinic) 8.2 % (4.0-6.0) H 06/23/23 12:50 Assessment and Plan Assessment & Plan (1) Type 2 diabetes mellitus with hyperglycemia: Code(s): E11.65 - Type 2 diabetes mellitus with hyperglycemia Plan: Decrease the amount of carbohydrate intake, pasta, bread, rice and potatoes are all sugar and that is aside from all the sweet stuff, remember that fruits are good but they are Sweet also. Hemoglobin A1c goal of less than 6.5. Patient is on Lantus 50 units once a day Humalog placed on Ozempic patient has been mentioning that the blood sugars are hypoglycemic and so advised to cut the Humalog doses in tohalf (2) Obesity (BMI 30-39.9): Code(s): E66.9 - Obesity, unspecified Plan: Diet and exercise (3) Hypercholesterolemia: Code(s): E78.00 - Pure hypercholesterolemia, unspecified Plan: Avoid fried foods, chicken skin, eggs, butter margarine, pastries and meat. Be it pork or beef they have a lot of cholesterol LDL goal of less than 100 and triglyceride of less than 150 patient on atorvastatin 10 mg once a (4) Blood pressure elevated without history of HTN: Code(s): R03.0 - Elevated blood-pressure reading, without diagnosis of hypertension Plan: monitor the BP at home (5) Trigger finger (acquired): Comment: r 3rd finger and Code(s): M65.30 - Trigger finger, unspecified finger Plan: call if getting worse (6) Cholelithiases: Code(s): K80.20 - Calculus of gallbladder without cholecystitis without obstruction Plan: eat low fat diet Orders: Orders AMB Hemoglobin A1c Today Z13.9 - Encounter for screening, unspecified Complete Blood Count Auto Diff Today E78.00 - Pure hypercholesterolemia, unspecified Free T4 (Free Thyroxine) Today E78.00 - Pure hypercholesterolemia, unspecified Thyroid Stimulating Hormone Today E78.00 - Pure hypercholesterolemia, unspecified Comprehensive Met. Panel Today E78.00 - Pure hypercholesterolemia, unspecified Lipid Panel Today E78.00 - Pure hypercholesterolemia, unspecified Medications: Changed From semaglutide (Ozempic) for 4 weeks 0.25 mg (0.368 mL) subcut QWEEK 3 mL 2RF E11.65 - Type 2 diabetes mellitus with hyperglycemia To semaglutide for 4 weeks 0.5 mg (0.375 mL) subcut QWEEK 30 days 3 mL 2RF E11.65 - Type 2 diabetes mellitus with hyperglycemia Coding Level of Care Code Est Pt Level 4 (35449) Diagnoses Type 2 diabetes mellitus with hyperglycemia E11.65 Obesity (BMI 30-39.9) E66.9 Hypercholesterolemia E78.00 Blood pressure elevated without history of HTN R03.0 Trigger finger (acquired) M65.30 Cholelithiases K80.20
== END 2023-06-23 14:06 | disposition home or self-care (01) ==
PROVIDERS: PCP Internal Medicine; Visit Provider Internal Medicine
DX: E11.65 Type 2 diabetes mellitus with hyperglycemia (principal); E78.00 Pure hypercholesterolemia, unspecified; R03.0 Elevated blood-pressure reading, without diagnosis of hypertension; M65.30 Trigger finger, unspecified finger; K80.20 Calculus of gallbladder without cholecystitis without obstruction
CPT/HCPCS: 83036; 99214

== ENCOUNTER 2023-08-04 09:06 | Outpatient (REF) | payer OTHER, SELFPAY ==
[2023-08-04 09:29] LABS: MANUAL DIFF FLAG NO
[2023-08-04 09:52] LABS: Basophils Percent Auto 0.5 % (0-2); Eosinophils Absolute Auto 0.2 X10*3/uL (0.0-0.4); Eosinophils Percent Auto 2.8 % (0-4); Hematocrit 42.7 % (42.0-52.0); Hemoglobin 14.2 g/dl (14.0-18.0); Imm Gran Abs Auto 0.07 X10*3/uL (0.00-0.03); Imm Gran Pct Auto 0.9 % (0.0-0.4); Lymphocytes Absolute Auto 1.6 X10*3/uL (1.2-4.9); Lymphocytes Percent Auto 21.6 % (20-40); Mean Corpuscular HGB Conc 33.3 g/dl (31.0-36.0); Mean Corpuscular Hemoglobin 29.5 pg (27.0-33.0); Mean Corpuscular Volume 88.8 fL (80.0-98.0); Mean Platelet Volume 10.2 fL (9.4-12.4); Monocytes Absolute Auto 0.8 X10*3/uL (0.1-1.2); Monocytes Percent Auto 10.1 % (2-11); Neutrophils Absolute Auto 4.8 x10*3/uL (2.0-8.3); Neutrophils Percent Auto 64.1 % (45-73); Platelet Count 308 X10*3/uL (160-400); Red Blood Count 4.81 X10*6/uL (4.60-5.80); Red Cell Distribution Width 13.1 % (11.0-16.0); White Blood Count 7.5 X10*3/uL (4.8-10.8)
[2023-08-04 10:29] LABS: Alanine Aminotransferase 23 U/L (0-40); Albumin Level 4.3 g/dL (3.5-5.0); Alkaline Phosphatase 81 U/L (39-117); Anion Gap 11 (12-20); Aspartate Amino Transferase 16 U/L (5-37); Bilirubin Total 0.6 mg/dL (0.0-1.0); Blood Urea Nitrogen 17 mg/dL (9-16); Calcium 9.2 mg/dL (8.4-10.2); Carbon Dioxide 29 mmol/L (22-29); Chloride 105 mmol/L (96-108); Cholesterol 169 mg/dL (<200); Estimated Glomerular Filt Rate > 60; Glucose Random 208 mg/dL (60-115); HDL Cholesterol 43 mg/dL (>40); LDL Cholesterol Calculated 104 mg/dL (<100); Potassium 4.6 mmol/L (3.3-5.1); Sodium 140 mmol/L (135-145); Total Protein 6.9 g/dL (6.5-8.0); Triglycerides 111 mg/dL (<150)
[2023-08-04 10:44] LABS: Free T4 (Free Thyroxine) 0.92 ng/dL (0.71-1.85); Thyroid Stimulating Hormone 0.93 uIU/mL (0.32-4.0)
== END 2023-08-04 09:07 | disposition home or self-care (01) ==
LOC: HO.LAB 09:06
PROVIDERS: PCP Internal Medicine; Visit Provider Internal Medicine
DX: E11.9 Type 2 diabetes mellitus without complications (principal); E78.00 Pure hypercholesterolemia, unspecified
CPT/HCPCS: 36415; 80053; 80061; 84439; 84443; 85025; 97803

== ENCOUNTER 2023-08-04 09:43 | Outpatient (AMB) | payer OTHER, SELFPAY ==
[2023-08-04 09:51] VITALS: BMI 33.0
--- NOTE | 2023-08-04 09:51 | A.OFFVIS_ITS ---
Intake VS Expanded 08/04/23 09:51 Height 5 ft 10 in Weight 229 lb 11.547 oz BMI 33.0 Intake Visit Reasons: DM/LVM Allergies No Known Allergies Allergy (Verified 06/23/23 12:47) HPI Nutrition Presentation Details Pt presents for MNT f/u for T2DM Pt reports doing well no questions or concerns expressed Pt reports having 3 meals per day and increased appetite at night. Pt verbalizes understanding relationship of carb/insulin to blood glucose. Pt reports he is concerned of hypoglycemia and is keeping bg a bit elevated. Physical activity: none additional to daily life activities ETOH: occ SMoking:denies Most Recent Diabetes Results: Microalb/Creat Ratio 12.9 ug/mg cr 12/01/22 Cholesterol 169 mg/dL (<200) 08/04/23 HDL Cholesterol 43 mg/dL (>40) 08/04/23 Triglycerides 111 mg/dL (<150) 08/04/23 Creatinine 0.79 mg/dL (0.5-1.4) 08/04/23 Blood Urea Nitrogen 17 mg/dL (9-16) H 08/04/23 Sodium 140 mmol/L (135-145) 08/04/23 Potassium 4.6 mmol/L (3.3-5.1) 08/04/23 Chloride 105 mmol/L (96-108) 08/04/23 Carbon Dioxide 29 mmol/L (22-29) 08/04/23 Calcium 9.2 mg/dL (8.4-10.2) 08/04/23 AST 16 U/L (5-37) 08/04/23 ALT 23 U/L (0-40) 08/04/23 Total Protein 6.9 g/dL (6.5-8.0) 08/04/23 Albumin 4.3 g/dL (3.5-5.0) 08/04/23 [facility] Medical History (Updated 06/23/23 @ 13:55 by Seth Boyer MD) Blood pressure elevated without history of HTN Diarrhea Asthma Surgical History (Updated 11/13/22 @ 14:28 by Seth Boyer MD) Hx of tonsillectomy Aftercare following bilateral shoulder joint replacement surgery History of appendectomy Family History (Updated 11/13/22 @ 14:14 by Leidy Rogers CMA) Mother Emphysema lung Father Heart failure Brother Substance use disorder Mental health disorder Brother No problems noted. Brother No problems noted. Sister No problems noted. Daughter No problems noted. Son No problems noted. Son No problems noted. Social History (Updated 03/04/23 @ 14:27 by Seth Boyer MD) Housing: House Alcohol intake: current Patient Tobacco Use Status: Never used Tobacco e-Cigarette/Vaping Use: Never Used Second Hand Smoke Exposure: No Current occupational status: employed Cognitive needs: No Hearing needs: No Vision needs: Yes Assessment & Plan Assessment & Plan (1) T2DM (type 2 diabetes mellitus): Code(s): E11.9 - Type 2 diabetes mellitus without complications Plan: Review physical activity and glucose control ? Used wt : 103 kg (104 kg 07/2023) Est kcal as per MSJ: 2231-250 = 1918 (40% carb, 30% fat/prot) Est fluid needs: 2575 ml/d (25 ml/kg bw) Rec fiber: increase to 8-10 g per day and gradually increase to 35 g or as tolerated Rec Na: < 2000 mg /d Educate patient on: (R= Reviewed, V = verbalizes understanding N/R= Needs review N/A= not applicable) * Food sources of carbohydrates and serving adequate serving sizes : R , V * Difference between complex carbohydrates and simple carbohydrates, role of fiber: R * protein sources of foods and relationship to wound healing, gluc control: R, V * Differences between fats (MUFA/PUFA/saturated fats, trans fats) and food sourc es of various fats: R, Basic info * Food sources of sodium and salt and healthy modifications for heart health and kidney health: N/R * Vitamins and minerals: R * How to interpret food labels: R * Healthy Plate method concept: R * Physical activity: benefits and precaution: R, * Blood glucose goal R: fasting blood glucose 80-130, 2 hours after a meal : 80-180 * Risks associated with hypoglycemia, Prevention of hypoglycemia, treatment: R, V * Relationship of caffeine and bg level: R Patient Instructions: Continue following healthy plate method Keep hydrated having water with meals and snacks, mindful of high fat foods (reduce on pastries, fried foods,and similar) HAve a glucerna as bedtime snack as you had done in the past Engage in physical activity , 10 minute walk/marching in place, 2-3 times a day (additional to daily life) Goal for fasting blood sugar : less than 130 and 2 hours after a meal less than 180 Coding Level of Care Code Nutr Indiv Subseq (86114) Diagnoses T2DM (type 2 diabetes mellitus) E11.9 Time Spent (min) 20
== END 2023-08-04 10:25 | disposition home or self-care (01) ==
PROVIDERS: PCP Internal Medicine; Visit Provider Dietitian, Registered
DX: E11.9 Type 2 diabetes mellitus without complications (principal)

== ENCOUNTER 2023-09-24 09:10 | Outpatient (AMB) | payer OTHER, SELFPAY ==
[2023-09-24 09:13] VITALS: BP 138/74; PULSE 89; O2SAT 95; BMI 31.6
--- NOTE | 2023-09-24 09:13 | MHC.PC.OV ---
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 Patient's colonoscopy is up-to-date June 2022. Patient did see Ophthalmology July 2022 showing background mild retinopathy. July 2023 last blood work. states BS getting low at times PFSH Medical History (Updated 09/24/23 @ 09:57 by Seth Boyer MD) Blood pressure elevated without history of HTN Diarrhea Asthma Surgical History (Updated 11/13/22 @ 14:28 by Seth Boyer MD) Hx of tonsillectomy Aftercare following bilateral shoulder joint replacement surgery History of appendectomy Family History (Updated 11/13/22 @ 14:14 by Leidy Rogers CMA) Mother Emphysema lung Father Heart failure Brother Substance use disorder Mental health disorder Brother No problems noted. Brother No problems noted. Sister No problems noted. Daughter No problems noted. Son No problems noted. Son No problems noted. Social History (Updated 03/04/23 @ 14:27 by Seth Boyer MD) Housing: House Alcohol intake: current Patient Tobacco Use Status: Never used Tobacco e-Cigarette/Vaping Use: Never Used Second Hand Smoke Exposure: No Current occupational status: employed Cognitive needs: No Hearing needs: No Vision needs: Yes Questionnaire Thrive Questionnaire Date Thrive assessed: 06/23/23 AUDIT C Alcohol Use Questionnaire (AUDIT-C) 1. How often do you have a drink containing alcohol?: 2-3 times a week 2. How many drinks containing alcohol do you have on a typical day when you are drinking?: 1 or 2 3. How often do you have six or more drinks on one occasion?: Never Total Score: 3 ELIU-7 AMB Questionnaire ELIU-7 Date ELIU - 7 assessed: 06/23/23 Source: Developed by Drs. Yovani Collazo, Ese Baxter, Deion Estrella and colleagues, with an educational valeriy from [employer]. Physical exam (Primary Care) Vital Signs: Last Vital Signs Pulse 89 09/24/23 09:13 BP 138/74 09/24/23 09:13 Pulse Ox 95 09/24/23 09:13 Oxygen Delivery Method Room Air 09/24/23 09:13 BMI result Body Mass Index 31.6 Tobacco/Smoking Status: Tobacco use Status Tobacco use date assessed 09/24/23 09/24/23 09:20 Patient Tobacco Use Status Never used Tobacco 09/24/23 09:20 e-Cigarette/Vaping Use Never Used 09/24/23 09:20 Thrive Assessment: Date of Thrive Assessment Date Thrive assessed 06/23/23 09/24/23 09:20 Const General: alert; No acute distress Eyes Conjunctivae: conjunctivae normal Resp Auscultation: clear to auscultation bilaterally Cardio Rate: regular rate Rhythm: regular rhythm GI Inspection: Yes normal to inspection Extrem General: Yes normal to inspection and No edema Results AMB Hemoglobin A1c AMB Hemoglobin A1c 8.1 % Last Edit by VICKI Leahy on 09/24/23 09:51 Assessment and Plan Assessment & Plan (1) Type 2 diabetes mellitus with hyperglycemia: Code(s): E11.65 - Type 2 diabetes mellitus with hyperglycemia Plan: Decrease the amount of carbohydrate intake, pasta, bread, rice and potatoes are all sugar and that is aside from all the sweet stuff, remember that fruits are good but they are Sweet also. Hemoglobin A1c goal of less than 6.5. Patient is on Lantus 50 units and Humalog, metformin a 1000 twice a day patient has been prescribed Trulicity 1 mg once a week. Discussed about the mechanisms of insulin long-acting as well as the short-acting and with the weight loss with the sugars getting low will decrease insulin. Continue with semaglutide presently of 1 mg once a week (2) Obesity (BMI 30-39.9): Code(s): E66.9 - Obesity, unspecified Plan: Diet and exercise (3) Hypercholesterolemia: Code(s): E78.00 - Pure hypercholesterolemia, unspecified Plan: Avoid fried foods, chicken skin, eggs, butter margarine, pastries and meat. Be it pork or beef they have a lot of cholesterol presently on atorvastatin 10 mg once a day patient is advised to get LDL down to less than 100 (4) Retinopathy, background, nonproliferative, mild: Comment: July 2023 Code(s): H35.00 - Unspecified background retinopathy Plan: Continue to monitor, control the diabetes. (5) Finger stiffness: Code(s): M25.649 - Stiffness of unspecified hand, not elsewhere classified Plan: Discussed that most often this is going to be osteoarthritis advised to keep active. Orders: Orders AMB Hemoglobin A1c Today E11.9 - Type 2 diabetes mellitus without complications Medications: Changed From insulin glargine (Lantus Solostar U-100 Insulin) or as directed 50 units (0.5 mL) subcut QPM 15 ea 3RF E11.9 - Type 2 diabetes mellitus without complications To insulin glargine (Lantus Solostar U-100 Insulin) or as directed 40 units (0.4 mL) subcut QPM 15 ea 3RF E11.9 - Type 2 diabetes mellitus without complications Refilled flash glucose sensor (FreeStyle Pushpa 2 Sensor kit) USE DIRECTED TO MONITOR BLOOD GLUCOSE DAILY. CHANGE SENSOR EVERY 14 DAYS 7 ea 3RF E11.9 - Type 2 diabetes mellitus without complications Coding Level of Care Code Est Pt Level 4 (05592) Diagnoses Type 2 diabetes mellitus with hyperglycemia E11.65 Obesity (BMI 30-39.9) E66.9 Hypercholesterolemia E78.00 Retinopathy, background, nonproliferative, mild H35.00 Finger stiffness M25.649
== END 2023-09-24 10:13 | disposition home or self-care (01) ==
PROVIDERS: PCP Internal Medicine; Visit Provider Internal Medicine
DX: E11.65 Type 2 diabetes mellitus with hyperglycemia (principal); E78.00 Pure hypercholesterolemia, unspecified; H35.00 Unspecified background retinopathy
CPT/HCPCS: 83036; 99214

== ENCOUNTER 2024-02-03 10:36 | Outpatient (AMB) | payer OTHER, SELFPAY ==
[2024-02-03 10:54] VITALS: BP 152/90; PULSE 79; O2SAT 98; BMI 32.3
--- NOTE | 2024-02-03 10:54 | MHC.PC.OV ---
Vital Signs 02/03/24 10:54 Height 5 ft 10 in Weight 225 lb BMI 32.3 BP 152/90 H Blood Pressure Location Rt brachial Position Sitting Pulse 79 Pulse Source Pulse Oximeter Pulse Oximetry (%) 98 Oxygen Delivery Method Room Air Intake Visit Reasons: DM Allergies semaglutide [From Ozempic] Adverse Reaction (Intermediate, Unverified 02/03/24 11:33) burping Tobacco use date assessed: 09/24/23 Dental Screening Dental Screen Date: 06/23/23 HPI DM HPI Details 58-year-old obese male with diabetes mellitus hypercholesterolemia coming in for follow-up. Last seen in September 2023. Patient is up-to-date with colonoscopy [facility] Medical History (Updated 02/03/24 @ 11:47 by Seth Boyer MD) Blood pressure elevated without history of HTN Diarrhea Asthma Surgical History (Updated 11/13/22 @ 14:28 by Seth Boyer MD) Hx of tonsillectomy Aftercare following bilateral shoulder joint replacement surgery History of appendectomy Family History (Updated 11/13/22 @ 14:14 by Leidy Rogers [facility]) Mother Emphysema lung Father Heart failure Brother Substance use disorder Mental health disorder Brother No problems noted. Brother No problems noted. Sister No problems noted. Daughter No problems noted. Son No problems noted. Son No problems noted. Social History (Updated 03/04/23 @ 14:27 by Seth Boyer MD) Housing: House Alcohol intake: current Patient Tobacco Use Status: Never used Tobacco e-Cigarette/Vaping Use: Never Used Second Hand Smoke Exposure: No Current occupational status: employed Cognitive needs: No Hearing needs: No Vision needs: Yes Questionnaire PHQ-9 Over the last 2 weeks, how often have you been bothered by any of the following problems? 1. Little interest or pleasure in doing things: not at all 2. Feeling down, depressed, or hopeless: not at all 3. Trouble falling or staying asleep, or sleeping too much: not at all 4. Feeling tired or having little energy: not at all 5. Poor appetite or overeating: not at all 6. Feeling bad about yourself - or that you are a failure or have let yourself or your family down: not at all 7. Trouble concentrating on things, such as reading the newspaper or watching television: not at all 8. Moving or speaking so slowly that other people could have noticed. Or the opposite - being so fidgety or restless that you have been moving around a lot more than usual: not at all 9. Thoughts that you would be better off or of hurting yourself in some way: not at all Total score: 0 Depression Screening Interpretation: Negative Depression Screening Done: Yes Source: Developed by Drs. Yovani Collazo, Ese Baxter, Deion Estrella and colleagues, with an educational valeriy from [employer]. Thrive Questionnaire Date Thrive assessed: 06/23/23 AUDIT C Alcohol Use Questionnaire (AUDIT-C) 1. How often do you have a drink containing alcohol?: 2-3 times a week 2. How many drinks containing alcohol do you have on a typical day when you are drinking?: 1 or 2 3. How often do you have six or more drinks on one occasion?: Never Total Score: 3 ELIU-7 AMB Questionnaire ELIU-7 Date ELIU - 7 assessed: 06/23/23 Source: Developed by Drs. Yovani Collazo, Ese Baxter, Deion Estrella and colleagues, with an educational valeriy from [employer]. Physical exam (Primary Care) Vital Signs: Last Vital Signs Pulse 79 02/03/24 10:54 BP 152/90 H 02/03/24 10:54 Pulse Ox 98 02/03/24 10:54 Oxygen Delivery Method Room Air 02/03/24 10:54 BMI result Body Mass Index 32.3 Tobacco/Smoking Status: Tobacco use Status Tobacco use date assessed 09/24/23 02/03/24 10:55 Patient Tobacco Use Status Never used Tobacco 02/03/24 10:55 e-Cigarette/Vaping Use Never Used 02/03/24 10:55 PHQ-9: PHQ-9 Score PHQ-9: Total score 0 02/03/24 11:11 Depression Screening Interpretation: Negative Thrive Assessment: Date of Thrive Assessment Date Thrive assessed 06/23/23 02/03/24 10:55 Const General: alert; No acute distress Eyes Conjunctivae: conjunctivae normal Resp Auscultation: clear to auscultation bilaterally Cardio Rate: regular rate Rhythm: regular rhythm GI Inspection: Yes normal to inspection Extrem General: Yes normal to inspection and No edema Results AMB Hemoglobin A1c AMB Hemoglobin A1c 8.2 % Last Edit by Leidy Rogers CMA on 02/03/24 11:12 Results Reviewed Results Reviewed: Laboratory Last Values Hgb A1c (Clinic) 8.2 % (4.0-6.0) H 02/03/24 11:11 Assessment and Plan Assessment & Plan (1) Type 2 diabetes mellitus with hyperglycemia: Code(s): E11.65 - Type 2 diabetes mellitus with hyperglycemia Plan: Decrease the amount of carbohydrate intake, pasta, bread, rice and potatoes are all sugar and that is aside from all the sweet stuff, remember that fruits are good but they are Sweet also. Hemoglobin A1c goal of less than 6.5. Patient presently on Lantus at 40 units once a day with Humalog metformin is 1000 mg twice a day patient is on Ozempic at 1 mg once a week. Patient has not been using the Ozempic because of intolerance to it but is willing to retry. Meanwhile was given the option of sending in Jardiance to get additional lowering of the blood sugar. Discussed hypoglycemic episodes and if this is occurring we have to cut down on insulin. (2) Hypercholesterolemia: Code(s): E78.00 - Pure hypercholesterolemia, unspecified Plan: Avoid fried foods, chicken skin, eggs, butter margarine, pastries and meat. Be it pork or beef they have a lot of cholesterol LDL goal of less than 100 and triglyceride of less than 150 on atorvastatin 10 mg at bedtime discussed with the patient that the July blood work shows an elevated cholesterol. Will need to bring it down. Retest (3) Obesity (BMI 30-39.9): Code(s): E66.9 - Obesity, unspecified Plan: Diet and exercise (4) Blood pressure elevated without history of HTN: Code(s): R03.0 - Elevated blood-pressure reading, without diagnosis of hypertension Plan: Advised to check blood pressure monitor. (5) Trigger finger (acquired): Comment: r 3rd finger and left 2nd and 3rd finger Code(s): M65.30 - Trigger finger, unspecified finger Plan: Referral to orthopedics done Orders: Orders Free T4 (Free Thyroxine) Today E78.00 - Pure hypercholesterolemia, unspecified Comprehensive Met. Panel Today E78.00 - Pure hypercholesterolemia, unspecified AMB Hemoglobin A1c Today Z13.9 - Encounter for screening, unspecified Lipid Panel Today E78.00 - Pure hypercholesterolemia, unspecified Thyroid Stimulating Hormone Today E78.00 - Pure hypercholesterolemia, unspecified Referrals Orthopedics Referral M65.30 - Trigger finger, unspecified finger Medications: New empagliflozin (Jardiance) 10 mg PO DAILY 30 tabs 2RF E11.65 - Type 2 diabetes mellitus with hyperglycemia Changed From insulin lispro (Humalog KwikPen (U-100) Insulin) or as directed 30 units (0.3 mL) subcut TID 45 mL 0RF E11.9 - Type 2 diabetes mellitus without complications To insulin lispro (Humalog KwikPen (U-100) Insulin) or as directed 25 units (0.25 mL) subcut TID 45 mL 0RF E11.9 - Type 2 diabetes mellitus without complications Discontinued semaglutide for 4 weeks Discontinued Reason: Patient Refused 1 mg (0.75 mL) subcut QWEEK 30 days 3.75 mL 0RF E11.65 - Type 2 diabetes mellitus with hyperglycemia Coding Level of Care Code Est Pt Level 4 (99251) Complex EM visit Add On G2211 Diagnoses Type 2 diabetes mellitus with hyperglycemia E11.65 Hypercholesterolemia E78.00 Obesity (BMI 30-39.9) E66.9 Blood pressure elevated without history of HTN R03.0 Trigger finger (acquired) M65.30
== END 2024-02-03 11:55 | disposition home or self-care (01) ==
PROVIDERS: PCP Internal Medicine; Visit Provider Internal Medicine
DX: E11.65 Type 2 diabetes mellitus with hyperglycemia (principal); E78.00 Pure hypercholesterolemia, unspecified; E66.9 Obesity, unspecified; Z68.32 Body mass index [BMI] 32.0-32.9, adult; R03.0 Elevated blood-pressure reading, without diagnosis of hypertension; M65.331 Trigger finger, right middle finger; M65.332 Trigger finger, left middle finger; M65.322 Trigger finger, left index finger
CPT/HCPCS: 83036; 99214

== ENCOUNTER 2024-02-08 07:48 | Outpatient (REF) | payer OTHER, SELFPAY ==
[2024-02-08 14:09] LABS: Alanine Aminotransferase 23 U/L (0-40); Albumin Level 4.2 g/dL (3.5-5.0); Alkaline Phosphatase 78 U/L (39-117); Anion Gap 12 (12-20); Aspartate Amino Transferase 19 U/L (5-37); Bilirubin Total 0.8 mg/dL (0.0-1.0); Blood Urea Nitrogen 17 mg/dL (9-16); Calcium 9.1 mg/dL (8.4-10.2); Carbon Dioxide 24 mmol/L (22-29); Chloride 108 mmol/L (96-108); Cholesterol 177 mg/dL (<200); Estimated Glomerular Filt Rate > 60; Glucose Random 163 mg/dL (60-115); HDL Cholesterol 52 mg/dL (>40); LDL Cholesterol Calculated 105 mg/dL (<100); Potassium 4.2 mmol/L (3.3-5.1); Sodium 140 mmol/L (135-145); Total Protein 6.7 g/dL (6.5-8.0); Triglycerides 100 mg/dL (<150)
[2024-02-08 14:26] LABS: Free T4 (Free Thyroxine) 0.89 ng/dL (0.71-1.85); Thyroid Stimulating Hormone 1.47 uIU/mL (0.32-4.0)
== END 2024-02-08 07:49 | disposition home or self-care (01) ==
LOC: HO.LAB 07:48
PROVIDERS: PCP Internal Medicine; Visit Provider Internal Medicine
DX: E78.00 Pure hypercholesterolemia, unspecified (principal)
CPT/HCPCS: 36415; 80053; 80061; 84439; 84443

== ENCOUNTER 2024-02-25 08:45 | Outpatient (AMB) | payer OTHER, SELFPAY ==
--- NOTE | 2024-02-25 08:47 | A.OFFVIS_ITS ---
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 Pt states his middle fingers are the worst. He was referred by his PCP Dr. Boyer to be evaluated. Pt states he is having difficulty using his hands due to the trigger fingers happening a lot during the day. Pt states his left hand is the worst right now. 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 The patient reports that the left middle finger is the digit that locks and catches the most, and is also the 1 that causes him the most pain. The patient reports that all 4 of these digits do locking catch on a regular basis. Denies any numbness or tingling in bilateral hands. No other acute complaints or concerns at this time. [facility] Medical History (Updated 02/25/24 @ 10:07 by POORNIMA Peralta) Blood pressure elevated without history of HTN Diarrhea Asthma Surgical History (Updated 11/13/22 @ 14:28 by Seth Boyer MD) Hx of tonsillectomy Aftercare following bilateral shoulder joint replacement surgery History of appendectomy Family History (Updated 11/13/22 @ 14:14 by Leidy Rogers [facility]) Mother Emphysema lung Father Heart failure Brother Substance use disorder Mental health disorder Brother No problems noted. Brother No problems noted. Sister No problems noted. Daughter No problems noted. Son No problems noted. Son No problems noted. Social History (Updated 03/04/23 @ 14:27 by Seth Boyer MD) Housing: House Alcohol intake: current Patient Tobacco Use Status: Never used Tobacco e-Cigarette/Vaping Use: Never Used Second Hand Smoke Exposure: No Current occupational status: employed Cognitive needs: No Hearing needs: No Vision needs: Yes Review of Systems Const All systems reviewed & are unremarkable except as noted in HPI and below Physical Exam Extrem Other: Patient is alert, oriented, and in no acute distress. Neuro: Normal sensation of the tips of all digits of the bilateral hands. Vascular: Cap refill brisk Pain: Patient reports tenderness to palpation over the A1 sangita of the left middle finger, index finger, as well as the right index and middle fingers No other tenderness to palpation noted ROM: Visible and palpable locking and catching of the left index, middle fingers Visible and palpable locking and catching of the right index, middle fingers Patient is able to make a closed fist and extend all other digits of bilateral hands fully and without difficulty Skin: Small deroofed blister noted on the right index finger, no evidence of drainage or infection General: No ecchymosis, erythema, or evidence of infection. Psych: Appears grossly normal Affect normal Attitude cooperative Office Procedures Tendon Injection Tendon Injection Details: Left middle finger trigger injection 69316-[id number] Tendon Sheath Injection All charges added?: Procedure code (CPT) selection complete Assessment & Plan Assessment & Plan (1) Trigger finger, left middle finger: Code(s): M65.332 - Trigger finger, left middle finger Category: Medical (2) Trigger finger, left index finger: Code(s): M65.322 - Trigger finger, left index finger Category: Medical (3) Trigger finger, right index finger: Code(s): M65.321 - Trigger finger, right index finger Category: Medical (4) Trigger finger, right middle finger: Code(s): M65.331 - Trigger finger, right middle finger Category: Medical Plan 1. Trigger finger, left middle finger I discussed this condition with the patient, as well as the typical treatment options. The patient would like to proceed with an injection at this time The risks and benefits of a steroid injection including but not limited to risk of damage to blood vessels, nerves, tendons, infection, skin bleaching, failure to improve symptoms, increased pain, and possible need for further injections or other intervention were discussed with the patient and the patient wishes to proceed with the steroid injection. Once consent was obtained, I sterilely prepped the area over the A1 sangita of the flexor tendon sheath of the left middle finger. I then injected the flexor tendon sheath with a combination of 1 mL of dexamethasone (4mg/ml), and 1% lidocaine. The patient tolerated the procedure well with no complications. If the patient continues to have locking and catching 4-6 weeks following this injection, they may call to schedule appointment to discuss alternative treatment options Follow-up prn 2. Trigger finger, left index finger 3. Trigger finger, right middle finger 4. Trigger finger, right index finger Patient is diabetic, with last A1c of approximately 8.5, so I informed him that he could only get 1 steroid injection at this time, as multiple steroid injections could cause his blood sugar to spike to dangerous the high levels The patient reports that he would like to pursue any intervention in the left middle finger 1st Patient will follow-up in 4-6 weeks for discussion of further treatment options if indicated, sooner with any acute concerns Coding Level of Care Code New Pt Level 3 (22749) Diagnoses Trigger finger, left middle finger M65.332 Trigger finger, left index finger M65.322 Trigger finger, right index finger M65.321 Trigger finger, right middle finger M65.331 CPT Codes Tendon Injection - Tendon Injection 1: [id number]-[id number] Tendon Sheath Injection ([id number])
== END 2024-02-25 09:13 | disposition home or self-care (01) ==
PROVIDERS: PCP Internal Medicine
DX: M65.332 Trigger finger, left middle finger (principal); M65.322 Trigger finger, left index finger; M65.321 Trigger finger, right index finger; M65.331 Trigger finger, right middle finger
CPT/HCPCS: 20550; 99203

== ENCOUNTER → 2024-02-25 08:45 | Outpatient (BNVA) | payer OTHER, SELFPAY | PROVIDERS: PCP Internal Medicine | DX: M65.332 Trigger finger, left middle finger (principal); M65.322 Trigger finger, left index finger; M65.321 Trigger finger, right index finger; M65.331 Trigger finger, right middle finger; E11.9 Type 2 diabetes mellitus without complications | CPT/HCPCS: 20550; J1100 ==

== ENCOUNTER 2024-03-29 08:53 | Outpatient (AMB) | payer OTHER, SELFPAY ==
--- NOTE | 2024-03-29 08:57 | MHC.OFFVIS ---
Intake Visit Reasons: OV- IF, MF b/l hand trigger fingers Intake Note: Wilberto is a 58 year old right hand dominant male who presents today for a follow up of his bilateral hand index and middle finger trigger. Last visit on 02/25/24 patient received an injection for his left middle finger and reports he didn't get any relief from it and states he still has issues with locking of his fingers. Pt states they also become painful. Allergies semaglutide [From Ozempic] Adverse Reaction (Intermediate, Unverified 03/29/24 08:57) burping HPI HPI OV- IF, MF b/l hand trigger fingers: Details: Patient is a 58-year-old male who presents for follow-up evaluation of bilateral index and middle finger trigger fingers. The patient reports that injection given in his left middle finger last visit did not help to alleviate his locking or catching, and he is still experiencing significant discomfort due to this. The patient reports he would like to explore potential surgical intervention for his trigger fingers at this time, but understands that his diabetes control may be a crissy to getting signed up for surgery. Patient denies any numbness or tingling in the bilateral hands. No other acute complaints or concerns at this time. [facility] Medical History Blood pressure elevated without history of HTN Diarrhea Asthma Surgical History Hx of tonsillectomy Aftercare following bilateral shoulder joint replacement surgery History of appendectomy Family History Mother Emphysema lung Father Heart failure Brother Substance use disorder Mental health disorder Brother No problems noted. Brother No problems noted. Sister No problems noted. Daughter No problems noted. Son No problems noted. Son No problems noted. Social History Housing: House Alcohol intake: current Patient Tobacco Use Status: Never used Tobacco e-Cigarette/Vaping Use: Never Used Second Hand Smoke Exposure: No Current occupational status: employed Cognitive needs: No Hearing needs: No Vision needs: Yes Review of Systems Const All systems reviewed & are unremarkable except as noted in HPI and below Physical Exam Extrem Other: Patient is alert, oriented, and in no acute distress. Neuro: Normal sensation of the tips of all digits of the bilateral hands. Vascular: Cap refill brisk Pain: Patient reports tenderness to palpation over the A1 sangita of the left middle finger, index finger, as well as the right index and middle fingers No other tenderness to palpation noted ROM: Visible and palpable locking and catching of the left index, middle fingers Visible and palpable locking and catching of the right index, middle fingers Patient is able to make a closed fist and extend all other digits of bilateral hands fully and without difficulty Skin: Small deroofed blister noted on the right index finger, no evidence of drainage or infection General: No ecchymosis, erythema, or evidence of infection. Psych: Appears grossly normal Affect normal Attitude cooperative Assessment & Plan Assessment & Plan (1) Trigger finger, right middle finger: Code(s): M65.331 - Trigger finger, right middle finger Category: Medical (2) Trigger finger, right index finger: Code(s): M65.321 - Trigger finger, right index finger Category: Medical (3) Trigger finger, left index finger: Code(s): M65.322 - Trigger finger, left index finger Category: Medical (4) Trigger finger, left middle finger: Code(s): M65.332 - Trigger finger, left middle finger Category: Medical Plan 1. Trigger finger, left middle finger 2. Trigger finger, left index finger 3. Trigger finger, right middle finger 4. Trigger finger, right index finger Patient previously had injections into the left middle finger to no effect Patient would like to proceed with any potential surgical intervention However, patient's last A1c was 8.2, so we can not get him signed up for surgery today Patient was advised that if he gets his diabetes under better control and has and next A1c under 8, he should call to make another appointment 4 getting signed up for surgery, as this is the benchmark required for trigger finger release Patient understands this and is amenable to this plan Patient will follow-up after he has an A1c under 8 for discussion of operative treatment of trigger fingers, sooner with any other acute concerns Coding Level of Care Code Est Pt Level 3 (29113) Diagnoses Trigger finger, right middle finger M65.331 Trigger finger, right index finger M65.321 Trigger finger, left index finger M65.322 Trigger finger, left middle finger M65.332
== END 2024-03-29 09:14 | disposition home or self-care (01) ==
PROVIDERS: PCP Internal Medicine
DX: M65.331 Trigger finger, right middle finger (principal); M65.321 Trigger finger, right index finger; M65.322 Trigger finger, left index finger; M65.332 Trigger finger, left middle finger
CPT/HCPCS: 99213

== ENCOUNTER → 2024-03-29 08:53 | Outpatient (BNVA) | payer OTHER, SELFPAY | PROVIDERS: PCP Internal Medicine ==

== ENCOUNTER 2024-05-05 10:30 | Outpatient (AMB) | payer OTHER, SELFPAY ==
[2024-05-05 10:31] VITALS: BP 134/70; PULSE 88; O2SAT 97; BMI 31.6
--- NOTE | 2024-05-05 10:31 | MHC.PC.OV ---
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 CHANGE SENSOR EVERY 14 DAYS insulin glargine (Lantus Solostar U-100 Insulin) 40 units (0.4 mL) subcut QPM insulin lispro (Humalog KwikPen (U-100) Insulin) 25 units (0.25 mL) subcut TID lisinopril 5 mg PO DAILY metformin 1,000 mg PO BID multivitamin 1 tab PO DAILY sildenafil 100 mg PO DAILY PRN Tobacco use date assessed: 05/05/24 Dental Screening Dental Screen Date: 06/23/23 HPI ANNUAL HPI Details 59-year-old male with past medical history of diabetes mellitus, hypercholesterolemia last seen by Dr. Boyer January 2024 coming in for annual exam.? In review of the notes patient was seen by Orthopedics 03/29/2024 for trigger finger surgery was postponed due to elevated A1c. Patient sees eye doctor regularly. He is up-to-date on his colonoscopy. He does mentioned that over the summer he had a few episodes of chest discomfort with strenuous activity has not had recurrence since. He has no other concerns today. FORMERLY [facility], [facility] Medical History Blood pressure elevated without history of HTN Diarrhea Asthma Surgical History Hx of tonsillectomy Aftercare following bilateral shoulder joint replacement surgery History of appendectomy Family History Mother Emphysema lung Father Heart failure Brother Substance use disorder Mental health disorder Brother No problems noted. Brother No problems noted. Sister No problems noted. Daughter No problems noted. Son No problems noted. Son No problems noted. Social History Housing: House Alcohol intake: current Patient Tobacco Use Status: Never used Tobacco e-Cigarette/Vaping Use: Never Used Second Hand Smoke Exposure: No Current occupational status: employed Cognitive needs: No Hearing needs: No Vision needs: Yes Questionnaire PHQ-9 Over the last 2 weeks, how often have you been bothered by any of the following problems? 1. Little interest or pleasure in doing things: not at all 2. Feeling down, depressed, or hopeless: not at all 3. Trouble falling or staying asleep, or sleeping too much: not at all 4. Feeling tired or having little energy: not at all 5. Poor appetite or overeating: not at all 6. Feeling bad about yourself - or that you are a failure or have let yourself or your family down: not at all 7. Trouble concentrating on things, such as reading the newspaper or watching television: not at all 8. Moving or speaking so slowly that other people could have noticed. Or the opposite - being so fidgety or restless that you have been moving around a lot more than usual: not at all 9. Thoughts that you would be better off or of hurting yourself in some way: not at all Total score: 0 Depression Screening Interpretation: Negative Depression Screening Done: Yes 71302 - PHQ-9 Billing: Yes Source: Developed by Drs. Yovani Collazo, Ese Baxter, Deion Estrella and colleagues, with an educational valeriy from [employer]. Thrive Questionnaire Date Thrive assessed: 05/05/24 I am a: Patient What is your living situation today?: I have a steady place to live Within the past 12 months, did the food you bought not last and you didn't have the money to get more?: Often true Within the past 12 months, did you worry whether your food would run out before you got money to buy more?: Often true Do you have trouble paying for medicines?: No Do you have trouble getting transportation to medical appointments?: No Do you have trouble paying your heating and electricity bill?: No Do you have trouble taking care of your child, family member or friend?: No Do you have trouble with day-to-day activities such as bathing, preparing meals, shopping, managing finances, etc.?: No Are you currently unemployed and looking for a job?: No Are you interested in more education?: No Please select the resources that you would like help with: None Currently or been in a relationship where the following occur: No concerns reported THRIVE Score: 2 AUDIT C Alcohol Use Questionnaire (AUDIT-C) 1. How often do you have a drink containing alcohol?: 2-3 times a week 2. How many drinks containing alcohol do you have on a typical day when you are drinking?: 1 or 2 3. How often do you have six or more drinks on one occasion?: Never Total Score: 3 ELIU-7 AMB Questionnaire ELIU-7 Date ELIU - 7 assessed: 06/23/23 Feeling nervous, anxious, or on edge: 0 = Not at all Not being able to stop or control worryin = Not at all Worrying too much about different things: 0 = Not at all Trouble relaxin = Not at all Being so restless that it is hard to sit still: 0 = Not at all Becoming easily annoyed or irritable: 0 = Not at all Feeling afraid as if something awful might happen: 0 = Not at all Total ELIU-7 score (0-4 normal; 5-9 mild; 10-14 moderate; 15-21 severe): 0 Source: Developed by Drs. Yovani Collazo, Ese Baxter, Deion Estrella and colleagues, with an educational valeriy from [employer]. Review of Systems Const Denies body aches, Denies fatigue, Denies fever(s), Denies frequent falls, Denies headache(s) and Denies weakness Eyes Reports no additional complaints and Denies change in vision ENT Denies dysphagia, Denies dizziness, Denies facial pain, Denies headache(s), Denies nasal congestion and Denies odynophagia Card Denies chest pain, Reports chest pain with activity (On 2 separate occasions), Denies syncope, Denies irregular heart rhythm, Denies leg edema, Denies lightheadedness and Denies dyspnea Resp Denies cough and Denies dyspnea GI Denies constipation, Denies dysphagia, Denies dyspepsia, Denies diarrhea, Denies nausea, Denies odynophagia and Denies vomiting Denies dysuria, Denies urinary frequency, Denies urinary hesitancy and Denies urinary urgency Musc Denies back pain and Denies myalgias Skin/Breast Reports system reviewed and no additional complaints, except as documented Neuro Denies dizziness, Denies syncope, Denies frequent falls, Denies headache(s) and Denies weakness Psych Reports no additional complaints Endo Denies fatigue Physical exam (Primary Care) Vital Signs: Last Vital Signs Pulse 88 05/05/24 10:31 BP 134/70 05/05/24 10:31 Pulse Ox 97 05/05/24 10:31 Oxygen Delivery Method Room Air 05/05/24 10:31 BMI result Body Mass Index 31.6 Tobacco/Smoking Status: Tobacco use Status Tobacco use date assessed 05/05/24 05/05/24 10:58 Patient Tobacco Use Status Never used Tobacco 05/05/24 10:32 e-Cigarette/Vaping Use Never Used 05/05/24 10:32 PHQ-9: PHQ-9 Score PHQ-9: Total score 0 05/05/24 11:05 Depression Screening Interpretation: Negative Thrive Assessment: Date of Thrive Assessment Date Thrive assessed 05/05/24 05/05/24 10:32 Currently or been in a relationship where the following occur: No concerns reported Const General: cooperative, healthy appearing, comfortable and no acute distress Orientation/consciousness: patient oriented x3 HENMT Head: Yes normocephalic Ears: hearing grossly normal bilaterally, external ears normal, TM's normal bilaterally and Abnormal EAC present cerumen impaction bilateral General nose exam: Normal external nose present Face and sinus: Yes normal facial exam and Yes sinuses nontender Mouth: Normal oral and palatal mucosa present and tongue normal Throat: Yes posterior oropharynx normal Eyes General: appearance normal, both eyes and all related structures Conjunctivae: conjunctivae normal Pupils: Equal, round and reactive pupils present EOM: EOMs intact bilaterally and No Nystagmus present Neck Neck: Yes normal visual inspection, Yes full ROM and Yes no lymphadenopathy Chest Chest palpation & inspection: normal inspection of the chest Resp Effort & Inspection: normal respiratory effort Auscultation: clear to auscultation bilaterally, no crackles, no rales, no rhonchi, no wheezes and breath sounds present Cardio Rate: regular rate Rhythm: regular rhythm Peripheral pulses: radial pulses present and dorsalis pedis present GI Inspection: Yes normal to inspection and No Abdominal wall edema Palpation (GI): Soft to palpation, not firm and nontender Auscultation: normal bowel sounds Rectal Exam - Male: Yes deferred General: Yes no CVA tenderness Back/Spine/Pelvis Back: no CVA tenderness Skin General skin exam: no rashes or lesions noted Neuro General: patient oriented x3 Cranial nerves: Yes Equal, round and reactive pupils present, Yes Midline tongue present, Yes Ability to bilaterally elevate shoulders present and No Nystagmus present Gait exam (Neuro): Normal gait present Extrem General: Yes normal to inspection, Yes full ROM, No no pedal edema and No edema Psych Speech and movement: Normal speech and movement present Affect: normal affect Insight: Good insight present (Psych) Judgement: Good judgement present (Psych) Results AMB Hemoglobin A1c AMB Hemoglobin A1c 7.6 % Last Edit by VICKI Leahy on 05/05/24 11:11 Coding Level of Care Code Est Pt Prev Care 40-64y(41153) Diagnoses Trigger finger (acquired) M65.30 Blood pressure elevated without history of HTN R03.0 Type 2 diabetes mellitus with hyperglycemia E11.65 Annual physical exam Z00.00 Hypercholesterolemia E78.00 Obesity (BMI 30-39.9) E66.9 Chest discomfort R07.89 Impacted cerumen of both ears H61.23 Additional Codes PHQ-9 - 30281 - PHQ-9 Billing: Yes ([id number]) Assessment & Plan Assessment & Plan (1) Trigger finger (acquired): Comment: r 3rd finger and left 2nd and 3rd finger Code(s): M65.30 - Trigger finger, unspecified finger Category: Medical Plan: Patient was seen by Orthopedics and was advised to have A1c decreased before surgery can be performed. A1c less than 8% we will send message to orthopedic PA. (2) Blood pressure elevated without history of HTN: Code(s): R03.0 - Elevated blood-pressure reading, without diagnosis of hypertension Category: Medical Plan: Avoid salt intake and encourage healthy diet and regular exercise. Blood pressure normal on exam today. (3) Type 2 diabetes mellitus with hyperglycemia: Code(s): E11.65 - Type 2 diabetes mellitus with hyperglycemia Category: Medical Plan: Decrease the amount of carbohydrates such as pasta, bread, rice, and potatoes and limit the amount of sweets. Although fruits are generally healthy they should be eaten in moderation as they are still high in sugar. Hemoglobin A1c goal of less than 7%. Will increase Jardiance to 25 mg and follow up in 3 months. (4) Annual physical exam: Code(s): Z00.00 - Encounter for general adult medical examination without abnormal findings Category: Medical Plan: Patient is up-to-date on all recommended routine screenings and vaccinations for his age. Blood work is updated and advised patient to follow up in 3 months for repeat A1c check. (5) Hypercholesterolemia: Code(s): E78.00 - Pure hypercholesterolemia, unspecified Category: Medical Plan: Avoid foods that are high in cholesterol such as red meat, fried foods, eggs and baked goods. Triglyceride goal of less than 150 and LDL goal of less than 100. Continue on atorvastatin 10 mg (6) Obesity (BMI 30-39.9): Code(s): E66.9 - Obesity, unspecified Category: Medical Plan: Healthy diet and regular exercise is encouraged. (7) Chest discomfort: Code(s): R07.89 - Other chest pain Category: Medical Plan: Patient states on very rare occasion when doing strenuous activity he will have chest discomfort. He has not had recurrence of this in over 4 months but did have a few episodes over the summer. Ordered for stress test to rule out cardiac involvement. (8) Impacted cerumen of both ears: Code(s): H61.23 - Impacted cerumen, bilateral Category: Medical Plan: Patient has cerumen impaction of bilateral ears advised to schedule ear flushing. Plan This note was constructed using voice recognition software. While every effort has been made to ensure accuracy and nurse informatics educator, still areas may have been included sometimes these areas may affect the content or meeting of the given symptoms. Total time spent caring for the patient today was 30 minutes. This includes time spent before the visit reviewing the chart, time spent during the visit, and time spent after the visit and documentation. Orders: Orders AMB Hemoglobin A1c Today E11.9 - Type 2 diabetes mellitus without complications CA stress test Today R07.89 - Other chest pain
== END 2024-05-05 11:31 | disposition home or self-care (01) ==
PROVIDERS: PCP Internal Medicine
DX: Z00.00 Encounter for general adult medical examination without abnormal findings (principal); E11.65 Type 2 diabetes mellitus with hyperglycemia; M65.331 Trigger finger, right middle finger; R03.0 Elevated blood-pressure reading, without diagnosis of hypertension; E78.00 Pure hypercholesterolemia, unspecified; E66.9 Obesity, unspecified; R07.89 Other chest pain; H61.23 Impacted cerumen, bilateral

== ENCOUNTER → 2024-05-05 10:30 | Outpatient (BNVA) | payer OTHER, SELFPAY | PROVIDERS: PCP Internal Medicine | DX: Z00.01 Encounter for general adult medical examination with abnormal findings (principal); M65.331 Trigger finger, right middle finger; M65.322 Trigger finger, left index finger; R03.0 Elevated blood-pressure reading, without diagnosis of hypertension; E11.65 Type 2 diabetes mellitus with hyperglycemia; E78.00 Pure hypercholesterolemia, unspecified; E66.9 Obesity, unspecified; Z68.31 Body mass index [BMI] 31.0-31.9, adult; R07.89 Other chest pain; H61.23 Impacted cerumen, bilateral | CPT/HCPCS: 83036; 96127 ==

== ENCOUNTER → 2024-05-25 09:00 | Outpatient (REF) | payer OTHER, SELFPAY ==
--- NOTE | 2024-05-25 09:02 | CA_ITS ---
Acquisition Time: 2024-05-25 09:03:21 Total Exercise Time: 00:07:27 Test Indications: chest discomfort with strenuous Medications: Protocol: IAN Max HR: 153 BPM 95% of Pred: 161 BPM Max BP: 214/060 mmHG Max Work Load: 9.2 METS Exercise Stress Test with exercise 7 mins 27 secs of Ian Protocol, achieving 93% MPHR, with moderate SON, with no chest discomfort, with no arrythmias, with hypertensive response (max BP of 214/60), improved gradually. WIth horizontal ST segment in lead II and laterally meeting criteria for ischemia. In recovery, gradual improvement in the ST segment and breathing back to baseline. BP improved back to 144/70. Recommend further testing with exercise stress test and nuclear medicine imaging. Test reviewed with Dr. Kennedy. Referred By: Leora Mann Overread By: MADHAVI SU
== END ==
LOC: HO.CARD 09:00
PROVIDERS: PCP Internal Medicine
DX: R07.89 Other chest pain (principal)
CPT/HCPCS: 93017

== ENCOUNTER → 2024-05-25 09:02 | Outpatient (BNV) | payer OTHER, SELFPAY | PROVIDERS: PCP Internal Medicine; Visit Provider Nurse Practitioner Family | DX: R06.02 Shortness of breath (principal) | CPT/HCPCS: 93016; 93018 ==

== ENCOUNTER 2024-05-25 09:54 | Outpatient (AMB) | payer OTHER, SELFPAY ==
[2024-05-25 10:04] VITALS: BP 120/74; PULSE 95; O2SAT 97; BMI 31.2
--- NOTE | 2024-05-25 10:04 | MHC.PC.OV ---
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 CHANGE SENSOR EVERY 14 DAYS insulin glargine (Lantus Solostar U-100 Insulin) 40 units (0.4 mL) subcut QPM insulin lispro (Humalog KwikPen (U-100) Insulin) 25 units (0.25 mL) subcut TID lisinopril 5 mg PO DAILY metformin 1,000 mg PO BID multivitamin 1 tab PO DAILY sildenafil 100 mg PO DAILY PRN Tobacco use date assessed: 05/25/24 Dental Screening Dental Screen Date: 05/25/24 Did you have a dental visit in the last 12 months?: Yes Did you have a dental problem in the last 6 months where you did not have access to dental care?: No Was dental information given to patient?: Patient has dentist HPI ear cleaning pt convenience HPI Details 59-year-old male with past medical history of diabetes mellitus, hypercholesterolemia last seen April 2024 coming in for ear cleaning. Patient had stress test that showed ST changes with exercise and recommended nuclear imaging stress test. Today he tells us he noticed an ulcer on the left great toe that developed over the weekend. He has been applying cream to it and wrapping it and has noticed an improvement. The ulcer is not painful and not draining. [facility] Medical History Blood pressure elevated without history of HTN Diarrhea Asthma Surgical History Hx of tonsillectomy Aftercare following bilateral shoulder joint replacement surgery History of appendectomy Family History Mother Emphysema lung Father Heart failure Brother Substance use disorder Mental health disorder Brother No problems noted. Brother No problems noted. Sister No problems noted. Daughter No problems noted. Son No problems noted. Son No problems noted. Social History Housing: House Alcohol intake: current Patient Tobacco Use Status: Never used Tobacco e-Cigarette/Vaping Use: Never Used Second Hand Smoke Exposure: No Current occupational status: employed Cognitive needs: No Hearing needs: No Vision needs: Yes Questionnaire PHQ-9 Over the last 2 weeks, how often have you been bothered by any of the following problems? 1. Little interest or pleasure in doing things: not at all 2. Feeling down, depressed, or hopeless: not at all 3. Trouble falling or staying asleep, or sleeping too much: not at all 4. Feeling tired or having little energy: not at all 5. Poor appetite or overeating: not at all 6. Feeling bad about yourself - or that you are a failure or have let yourself or your family down: not at all 7. Trouble concentrating on things, such as reading the newspaper or watching television: not at all 8. Moving or speaking so slowly that other people could have noticed. Or the opposite - being so fidgety or restless that you have been moving around a lot more than usual: not at all 9. Thoughts that you would be better off or of hurting yourself in some way: not at all Total score: 0 Depression Screening Interpretation: Negative Depression Screening Done: Yes 57288 - PHQ-9 Billing: Yes Source: Developed by Drs. Yovani Collazo, Ese Baxter, Deion Estrella and colleagues, with an educational valeriy from [employer]. Thrive Questionnaire Date Thrive assessed: 05/25/24 I am a: Patient What is your living situation today?: I have a steady place to live Within the past 12 months, did the food you bought not last and you didn't have the money to get more?: Often true Within the past 12 months, did you worry whether your food would run out before you got money to buy more?: Often true Do you have trouble paying for medicines?: No Do you have trouble getting transportation to medical appointments?: No Do you have trouble paying your heating and electricity bill?: No Do you have trouble taking care of your child, family member or friend?: No Do you have trouble with day-to-day activities such as bathing, preparing meals, shopping, managing finances, etc.?: No Are you currently unemployed and looking for a job?: No Are you interested in more education?: No Please select the resources that you would like help with: None Currently or been in a relationship where the following occur: No concerns reported THRIVE Score: 2 AUDIT C Alcohol Use Questionnaire (AUDIT-C) 1. How often do you have a drink containing alcohol?: 2-3 times a week 2. How many drinks containing alcohol do you have on a typical day when you are drinking?: 1 or 2 3. How often do you have six or more drinks on one occasion?: Never Total Score: 3 ELIU-7 AMB Questionnaire ELIU-7 Date ELIU - 7 assessed: 05/25/24 Feeling nervous, anxious, or on edge: 0 = Not at all Not being able to stop or control worryin = Not at all Worrying too much about different things: 0 = Not at all Trouble relaxin = Not at all Being so restless that it is hard to sit still: 0 = Not at all Becoming easily annoyed or irritable: 0 = Not at all Feeling afraid as if something awful might happen: 0 = Not at all Total ELIU-7 score (0-4 normal; 5-9 mild; 10-14 moderate; 15-21 severe): 0 Source: Developed by Drs. Yovani Collazo, Ese Baxter, Deion Estrella and colleagues, with an educational valeriy from [employer]. Review of Systems Const Denies body aches, Denies chills, Denies fever(s), Denies headache(s) and Denies poor appetite ENT Denies dizziness and Denies headache(s) Card Denies chest pain, Denies irregular heart rhythm, Denies lightheadedness and Denies dyspnea Resp Denies cough and Denies dyspnea GI Denies abdominal pain, Denies nausea and Denies vomiting Reports no additional complaints Musc Reports no additional complaints and Denies abnormal gait Skin/Breast Reports system reviewed and no additional complaints, except as documented Neuro Denies abnormal gait, Denies dizziness and Denies headache(s) Psych Reports no additional complaints Physical exam (Primary Care) Vital Signs: Last Vital Signs Pulse 95 05/25/24 10:04 BP 120/74 05/25/24 10:04 Pulse Ox 97 05/25/24 10:04 Oxygen Delivery Method Room Air 05/25/24 10:04 BMI result Body Mass Index 31.2 Tobacco/Smoking Status: Tobacco use Status Tobacco use date assessed 05/25/24 05/25/24 10:13 Patient Tobacco Use Status Never used Tobacco 05/25/24 10:05 e-Cigarette/Vaping Use Never Used 05/25/24 10:05 PHQ-9: PHQ-9 Score PHQ-9: Total score 0 05/25/24 10:21 Depression Screening Interpretation: Negative Thrive Assessment: Date of Thrive Assessment Date Thrive assessed 05/25/24 05/25/24 10:13 Currently or been in a relationship where the following occur: No concerns reported Const General: cooperative, healthy appearing, comfortable and no acute distress Orientation/consciousness: patient oriented x3 HENMT Other: Cerumen impaction bilateral ears Head: Yes normocephalic Ears: hearing grossly normal bilaterally General nose exam: Normal external nose present Eyes General: appearance normal, both eyes and all related structures Conjunctivae: conjunctivae normal Neck Neck: Yes full ROM and Yes no lymphadenopathy Resp Effort & Inspection: normal respiratory effort Auscultation: clear to auscultation bilaterally, no crackles, no rales, no rhonchi and no wheezes Cardio Rate: regular rate Rhythm: regular rhythm Skin Other: Closed ulcer on the lateral aspect of the left great toe that is surrounding erythema warmth or drainage. General skin exam: no rashes or lesions noted Neuro General: patient oriented x3 Gait exam (Neuro): Normal gait present Extrem General: Yes normal to inspection, Yes full ROM and No edema Psych Affect: normal affect Attitude: cooperative Insight: Good insight present (Psych) Judgement: Good judgement present (Psych) Office Procedures Cerumen Removal From which ear canal was the cerumen removed: bilateral Removal: irrigation and cerumen loop/spoon Notes: patient tolerated procedure well, no complications and ear canal clear [id number] Irrigation/Lavage Coding Level of Care Code Est Pt Level 4 (04729) Diagnoses Abnormal stress ECG with treadmill R94.39 Blood pressure elevated without history of HTN R03.0 Ulcer of left great toe due to diabetes mellitus E11.621; L97.529 Impacted cerumen of both ears H61.23 CPT Codes Office Procedure - CPT: 57271-Geh Irrigation/Lavage ([id number]) Additional Codes PHQ-9 - 34421 - PHQ-9 Billing: Yes ([id number]) Assessment & Plan Assessment & Plan (1) Abnormal stress ECG with treadmill: Code(s): R94.39 - Abnormal result of other cardiovascular function study Category: Medical Plan: Ordered for nuclear stress test per Cardiology recommendation. (2) Blood pressure elevated without history of HTN: Code(s): R03.0 - Elevated blood-pressure reading, without diagnosis of hypertension Category: Medical Plan: Continue on current blood pressure medication. Avoid salt intake and encourage healthy diet and regular exercise. (3) Ulcer of left great toe due to diabetes mellitus: Code(s): E11.621 - Type 2 diabetes mellitus with foot ulcer; L97.529 - Non-pressure chronic ulcer of other part of left foot with unspecified severity Category: Medical Plan: At this time the ulcer is healed over and is not open skin at this time and no evidence of infection. Advised patient to continue to keep the area clean and dry. And provided the number to tongue and groove machine setter to schedule an appointment. Reviewed red flag symptoms and when to present for re-evaluation. (4) Impacted cerumen of both ears: Code(s): H61.23 - Impacted cerumen, bilateral Category: Medical Plan: Cerumen of the left ear was successfully removed using irrigation and lighted curette. The same procedure was used on the right ear however due to extensive wax not all was removed during this visit. Advised patient to make follow up appointment and use Debrox drops to be 4 days before the appointment. Plan This note was constructed using voice recognition software. While every effort has been made to ensure accuracy and research and development engineer, still areas may have been included sometimes these areas may affect the content or meeting of the given symptoms. Total time spent caring for the patient today was 30 minutes. This includes time spent before the visit reviewing the chart, time spent during the visit, and time spent after the visit and documentation. Orders: Orders NM cardiolite stress test Today R07.89 - Other chest pain, R94.39 - Abnormal result of other cardiovascular function study CA lexiscan stress w fer Today R07.89 - Other chest pain, R94.39 - Abnormal result of other cardiovascular function study
== END 2024-05-25 11:18 | disposition home or self-care (01) ==
PROVIDERS: PCP Internal Medicine
DX: E11.621 Type 2 diabetes mellitus with foot ulcer (principal); L97.529 Non-pressure chronic ulcer of other part of left foot with unspecified severity; R94.39 Abnormal result of other cardiovascular function study; R03.0 Elevated blood-pressure reading, without diagnosis of hypertension; H61.23 Impacted cerumen, bilateral

== ENCOUNTER → 2024-06-16 09:08 | Outpatient (REF) | payer OTHER, SELFPAY ==
--- NOTE | ~2024-06-16 | NM_ITS ---
EXERCISE MYOCARDIAL PERFUSION STUDY INDICATION: Abnormal Treadmill stress test evaluate for myocardial ischemia TECHNIQUE: The patient was brought in for an exercise perfusion study on 06/16/2024. Patient performed exercise as per Hector protocol and was injected 30 mCi of sestamibi once target heart rate was achieved. Images were obtained using the SPECT gamma camera interlaced with the gating device. Images were obtained in supine position. Resting perfusion study was performed on 06/19/2024. Patient was administered 30 mCi of sestamibi intravenously at rest. Images were then obtained in supine position. Images obtained with and without CT attenuation. Total DLP 119 mGy-cm. Images were processed with the software and compared side to side in short axis, horizontal long axis and vertical long axis views. FINDINGS: Raw images were reviewed The stress perfusion study showed nonattenuated images show mildly reduced uptake in the basal inferior and inferolateral wall of the LV myocardium remainder of the LV myocardium is normally perfused. Attenuated corrected images show minimally reduced uptake in the apex of the LV myocardium. The gated study shows normal LV systolic function with calculated LVEF of 67%. LV cavity is normal in size. The gated study shows normal systolic wall thickening and contraction of segments. Resting study shows no change in perfusion pattern compared to stress perfusion study. Gating at rest reveals normal systolic wall motion with ejection fraction at 69%. The findings are consistent with normal myocardial perfusion. NM/NM cardiolite stress test IMPRESSION: 1. Myocardial perfusion imaging study shows normal myocardial perfusion. 2. Gated LVEF is 67%. 3. Transient ischemic dilatation not present. EKG revealed positive for ischemia. Electronically signed by: Hector Kennedy MD 06/19/2024 03:[address] [facility]
--- NOTE | 2024-06-16 09:18 | CA_ITS ---
Acquisition Time: 2024-06-16 09:39:09 Total Exercise Time: 00:07:40 Test Indications: Abnormal ECG Medications: SEE H Protocol: IAN Max HR: 150 BPM 93% of Pred: 161 BPM Max BP: 170/060 mmHG Max Work Load: 9.5 METS Exercise Stress Test with exercise 7 mins 40 secs of Ian Protocol, achieving 92% MPHR, with reports dizziness, no chest discomfort, with isolated PVCs during which pt reported feeling irregular heart beat, with normotensive response to exercise. WIth EKG changes- horizontal ST segments inferiorly, in leads I, and V3-V6; ST elevation in aVR, suggestive for ischemia. Nuclear images pending. In recovery, dizziness. ST segment improved gradually in recovery. Test reviewed with Dr. Kennedy. Referred By: Leora Mann Overread By: Adithya Barba
== END ==
LOC: HO.CARD 09:08
PROVIDERS: PCP Internal Medicine
DX: R07.89 Other chest pain (principal); R94.39 Abnormal result of other cardiovascular function study
CPT/HCPCS: 78452; 93017; A9500

== ENCOUNTER → 2024-06-16 09:18 | Outpatient (BNV) | payer OTHER, SELFPAY | PROVIDERS: PCP Internal Medicine | DX: I49.3 Ventricular premature depolarization (principal) | CPT/HCPCS: 78452; 93016; 93018 ==

== ENCOUNTER 2024-06-29 12:40 | Outpatient (AMB) | payer OTHER, SELFPAY ==
[2024-06-29 12:50] VITALS: BP 132/68; PULSE 86; BMI 30.7
--- NOTE | 2024-06-29 12:50 | A.OFFVIS_ITS ---
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 CHANGE SENSOR EVERY 14 DAYS insulin glargine (Lantus Solostar U-100 Insulin) 40 units (0.4 mL) subcut QPM insulin lispro (Humalog KwikPen (U-100) Insulin) 25 units (0.25 mL) subcut TID lisinopril 5 mg PO DAILY metformin 1,000 mg PO BID multivitamin 1 tab PO DAILY sildenafil 100 mg PO DAILY PRN HPI Comments Details: Wilberto is here for consultation regarding abnormal stress testing. Patient has multiple cardiovascular risk factors including type 2 diabetes on insulin, dyslipidemia. He does not have any documented coronary disease or myocardial infarction. He states that during times of physical exertion, sometimes may feel a nonspecific sensation in the chest but he is not able to clearly state if it is pain or not. Subsequently, he came for an ETT. There was no chest discomfort but he had a hypertensive blood pressure response and EKG suggestion of ischemia. Subsequently, it seems that he underwent exercise stress MIBI. Again, EKG part was abnormal but the perfusion reported to be normal. He is here for further evaluation. As mentioned above, during times of physical exertion, sometimes he feels on old sensation in the chest, possible discomfort but he is not able to describe that further. [facility] Medical History Blood pressure elevated without history of HTN Diarrhea Asthma Surgical History Hx of tonsillectomy Aftercare following bilateral shoulder joint replacement surgery History of appendectomy Family History Mother Emphysema lung Father Heart failure Brother Substance use disorder Mental health disorder Brother No problems noted. Brother No problems noted. Sister No problems noted. Daughter No problems noted. Son No problems noted. Son No problems noted. Social History (Updated 06/29/24 @ 12:59 by Makayla Gill) Housing: House Alcohol intake: current Alcohol intake frequency: a few times a week Alcohol type: beer Patient Tobacco Use Status: Never used Tobacco e-Cigarette/Vaping Use: Never Used Second Hand Smoke Exposure: No Current occupational status: employed Cognitive needs: No Hearing needs: No Vision needs: Yes Review of Systems Const Denies weakness ENT Reports dizziness Card Reports chest pain, Denies chest pain with activity, Denies syncope, Denies rapid heart rate, Denies pedal edema, Denies edema, Denies leg edema, Denies lightheadedness, Denies palpitations, Denies dyspnea, Denies dyspnea on exertion and Denies orthopnea Resp Denies cough, Denies dyspnea and Denies dyspnea on exertion GI Denies hematochezia and Denies change in stool character Musc Denies abnormal gait, Denies muscle cramps, Denies muscle weakness, Denies numbness, Denies radiating pain into limb and Denies tingling Neuro Denies abnormal gait, Reports dizziness, Denies syncope, Denies numbness, Denies tingling and Denies weakness Endo Denies palpitations Physical Exam Vital Signs: Last Vital Signs Pulse 86 06/29/24 12:50 BP 132/68 06/29/24 12:50 BMI result Body Mass Index 30.7 Const General: comfortable and no acute distress Orientation/consciousness: patient oriented x3 HEENT Other: Unremarkable Head: Yes normal to inspection Neck Neck: Yes normal visual inspection Chest Chest palpation & inspection: normal inspection of the chest Resp Auscultation: clear to auscultation bilaterally Cardio Palpation: normal PMI Heart sounds: S1 normal heart sound present, S2 normal heart sound present, no gallops, no murmurs and no rubs GI Palpation (GI): Soft to palpation Back/Spine/Pelvis Other: unremarkable Skin General skin exam: no rashes or lesions noted Neuro General: patient oriented x3 Extrem General: Yes normal to inspection Psych Mental Status: mental status grossly normal Office Procedures EKG Details: EKG with underlying sinus rhythm at 86/Min; nonspecific ST-[place] changes; [place] [id number], Complete Assessment & Plan Assessment & Plan (1) Abnormal stress ECG with treadmill: Code(s): R94.39 - Abnormal result of other cardiovascular function study Category: Medical (2) Chest discomfort: Code(s): R07.89 - Other chest pain Category: Medical (3) Blood pressure elevated without history of HTN: Code(s): R03.0 - Elevated blood-pressure reading, without diagnosis of hypertension Category: Medical (4) Type 2 diabetes mellitus with hyperglycemia: Code(s): E11.65 - Type 2 diabetes mellitus with hyperglycemia Category: Medical (5) Hypercholesterolemia: Code(s): E78.00 - Pure hypercholesterolemia, unspecified Category: Medical Plan Multiple cardiac risk factors, possible exertional chest discomfort, abnormal EKG portion during ETT but without any angina, hypertensive blood pressure response, normal perfusion. Overall, testing is inconclusive. We need to proceed with further evaluation. Obtain coronary CTA. We will also get an echocardiogram for cardiac function/wall motion. Follow-up after the above. Discussed the fact that in case there is any profound chest discomfort or other cardiac concerns/symptoms from now till the testing is done, to seek emergency help. They understand that. Discussed with significant other. Orders: Orders Basic Metabolic Panel Today R07.89 - Other chest pain CA echo transthoracic complete Today I25.10 - Atherosclerotic heart disease of [place] coronary artery without angina pectoris, R94.39 - Abnormal result of other cardiovascular function study CT Cardiac Coronary Angio Today I25.10 - Atherosclerotic heart disease of [place] coronary artery without angina pectoris, R94.39 - Abnormal result of o ther cardiovascular function study Coding Level of Care Code New Pt Level 4 (80774) Diagnoses Abnormal stress ECG with treadmill R94.39 Chest discomfort R07.89 Blood pressure elevated without history of HTN R03.0 Type 2 diabetes mellitus with hyperglycemia E11.65 Hypercholesterolemia E78.00 CPT Codes EKG - CPT: 88082-[id number], Complete ([id number])
== END 2024-06-29 13:26 | disposition home or self-care (01) ==
PROVIDERS: PCP Internal Medicine; Visit Provider Internal Medicine
DX: R94.39 Abnormal result of other cardiovascular function study (principal); R07.89 Other chest pain; R03.0 Elevated blood-pressure reading, without diagnosis of hypertension; E11.65 Type 2 diabetes mellitus with hyperglycemia; E78.00 Pure hypercholesterolemia, unspecified
CPT/HCPCS: 93010; 99204

== ENCOUNTER → 2024-06-29 12:40 | Outpatient (BNVA) | payer OTHER, SELFPAY | PROVIDERS: PCP Internal Medicine; Visit Provider Internal Medicine | DX: R94.39 Abnormal result of other cardiovascular function study (principal); R07.89 Other chest pain; R03.0 Elevated blood-pressure reading, without diagnosis of hypertension; E11.65 Type 2 diabetes mellitus with hyperglycemia; E78.00 Pure hypercholesterolemia, unspecified | CPT/HCPCS: 93005 ==

== ENCOUNTER → 2024-07-04 14:25 | Outpatient (REF) | payer OTHER, SELFPAY ==
--- NOTE | 2024-07-04 14:28 | CA_ITS ---
Transthoracic Echocardiogram Patient (Last, First, Middle): Wilberto Conway A Gender: Male Date of : 1965 Age: 59 Procedure Date: 07/04/2024 Procedure Type: Transthoracic Echocardiogram Location: OP Height: 177.8 cm Weight: 97.52 kg BSA: 2.15 m2 Heart Rate: bpm BP: 138 / 68 mmHg Erosion Control Coordinator: CHRISTOPHER Referring MD: Santi George MD Symptoms: I25.10 - Atherosclerotic heart disease of minto coronary artery without... Study Quality: Fair Conclusions: - 1. Hyperdynamic LV ejection fraction of greater than 70% 2. Normal cardiac valvular Dopplers with mild fibrocalcific aortic valve changes noted 3. Upper limits of normal ascending aorta 4. Normal RV systolic pressure 5. No gross pericardial effusion Findings Left Ventricle Normal left ventricular cavity size. There is mildly increased left ventricular wall thickness. The left ventricular systolic function is hyperdynamic. The visually estimated ejection fraction is >70%. Spectral Doppler is indicative of a normal filling pattern. Wall Motion Rest Echo Findings The basal inferior, mid inferior, and basal inferoseptal segments are hypokinetic. All other scored wall segments showed normal motion. Right Ventricle Normal right ventricular cavity size and systolic function. Atria The left atrium is likely dilated. There is no evidence of interatrial shunt. The right atrium is normal in size. Aortic Valve There are fibrocalcifications on the aortic valve leaflets. There is no aortic valve stenosis. There is no aortic valve regurgitation. Mitral Valve There is mild anterior and posterior mitral leaflet thickening. There is trace mitral valve regurgitation. There is no mitral valve stenosis. Pulmonic Valve The pulmonic valve is likely normal. There is trace pulmonic valve regurgitation. Tricuspid Valve Normal tricuspid valve structure. There is trace tricuspid valve regurgitation. The right ventricular systolic pressure is normal. The right ventricular systolic pressure is 31 mmHg. Normal right atrial pressure. There is no evidence of pulmonary hypertension. Great Vessels The pulmonary artery was not well visualized. Small plaque is seen in the sino tubular ridge. Venous The inferior vena cava is normal in size and collapses greater than 50% with inspiration. Pericardium/Pleural There is no evidence of pericardial effusion. Prior Study Comparison No prior study available for comparison. Measurements 2D Linear Measurements IVSd: 1.19 0.6-0.9/0.6-1.0 cm LVIDd: 4.70 3.9-5.3/4.2-5.9 cm LVIDd Index: 2.19 2.4-3.2/2.2-3.1 cm/m2 LVIDs: 2.59 2.0-3.6 cm LVPWd: 1.07 0.7-1.1 cm LA Diam: 3.90 2.7-3.8/3.0-4.0 cm LAIDs Index: 1.81 1.5-2.3 cm/m2 LV Mass: 242.66 67-162/88-224 g LV Mass Index: 112.87 43-95/49-115 g/m2 LVOT Diam: 2.10 3.0+(-)1.3 cm 2D Systolic Function EF 4C: 79.30 >55% EF 2C: 64.50 >55% EF BiP: 73.80 >55% Mitral Valve MV Pk E: 0.91 MV PK A: 0.83 MV Decel Time: 220.00 E/A: 1.10 E'Lateral: 9.68 E'Medial: 7.83 E/E' Med: 11.60 E/E' Lat: 9.40 PHT: 65.00 MVA PHT: 3.38 Decel [place]: 4.12 Aortic Valve AoV Pk Daniel: 1.59 AoV Mn Daniel: 1.12 AoV VTI: 0.32 AoV Pk Grad: 10.00 Aov Mn Grad: 6.00 LUIS FERNANDO Cont.VTI: 3.03 LVOT LVOT Pk Daniel: 1.32 LVOT Mn Daniel: 0.82 LVOT VTI: 0.28 LVOT Pk Grad: 7.00 LVOT Mn Grad: 3.00 LVOT Diam: 2.10 LVOT Area: 3.46 Diastolic Function MV Pk E: 0.91 MV Pk A: 0.83 E/A: 1.10 E'Medial: 7.83 E/E' Med: 11.60 E' Laterial: 9.68 E/E' Lat: 9.40 Right Ventricle TAPSE (mm): 22.10 TVS' Daniel: 17.30 Tricuspid Valve TR Pk Daniel: 2.65 TR Pk Grad: 28.00 RA Press: 3.00 RVSP: 31.00 Great Vessels Aorta Sinus of Valsalva: 3.64 2.0-3.[address] [place]: 2.70 1.7-3.4 cm Ao Asc: 3.60 2.1-3.4 cm Updated in Other Vendor System with Status of Final Hector Kennedy MD electronically signed on 07/05/2024 12:59:06 PM with status of Final
--- OUTSIDE RECORDS SUMMARY | 2024-07-04 16:25 | XMS_ITS | Data Portability ---
Author Organization [facility], , [facility] Address [address] [place] [address] Care Team Providers Care Vp Lab Name Role Phone JOSS WHEELER Physical Security Specialist SHAREE MARTINEZ Substation Operator Chief [phone] ERNIE DEAN Air Quality Technician Assessment Encounter Date Assessment Date Assessment LastModified by Organization Details LastModified Time 09/21/2022 09/21/2022 colon 10/[address] chin [email or web address] Not available 09/21/2022 15:28:01 Plan of Treatment Reminders Order Date Submit Date Provider Last Modified By Organization Details Last Modified Time Details Appointments None recorded. Lab HbA1c (hemoglobin A1c), blood 2022 023 [facility], [address] [place] [address], [address], 3 11:02:52 microalbumi n/creatinin e, ratio panel, urine 2022 023 [facility], [address] [place], [address], 3 12:27:09 Referral otolaryngol ogist referral - tinnitus and TMJ same side; please eval and Rx as needed 2021 022 [email or web address] Dunia Burkett MD, [address] [place], [address], 2 11:14:12 wound care referral - DM foot ulcers, both great toes 2022 023 [email or web address], [address] [place], [address], 3 10:12:51 nutritionis t/dietitian referral 2022 023 [email or web address] Suze Whipple, [address] [place] [address] [place], [address], 3 10:49:02 Procedures None recorded. Surgeries None recorded. Imaging None recorded. Medication Orders cephalexin 500 mg tablet 2022 023 [facility], [address] [place] [address], [place], [address], 3 14:38:26 Patient TargetsNo targets recorded. Patient InstructionsNo instructions recorded. 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 METAB OLIC PANEL glucose 262 mg/dL 70-100 high Not Available [address], [address], 06/19/2022 11:00:07 06/18/19 23 06/19/2022 COMP. METAB OLIC PANEL BUN 13 mg/dL 7-18 Not Available [address], [address], 06/19/2022 11:00:07 06/18/19 23 06/19/2022 COMP. METAB OLIC PANEL creatinine 1.0 mg/dL 0.8-1. 3 Not Available [address], [address], 06/19/2022 11:00:07 06/18/19 23 06/19/2022 COMP. METAB OLIC PANEL B/C 13.0 ratio Not Available [address], [address], 06/19/2022 11:00:07 06/18/19 23 06/19/2022 COMP. METAB OLIC PANEL GFR >=60ML /MIN mL/mi n normal >=60m L/min - Karley l or midly reduc ed <60mL /min- Decre ased kidne y funct ion <15mL /min - Kidne y failu re [facility] calcu lates estim ated Glome rular Filtr ation Rate (eGFR ) using the Chron ic Kidne y Disea se Epide miolo gy Colla borat ion (CKD- EPI) Equat ion (Matti luther et. al 2020) as recom lorrie d by the Natio nal Kidne y Found ation . eGFR is based on age, serum creat inine , and sex. CKD-E PI does not calcu late eGFR by race, does not apply to child shun (age <18 years ), and shoul d not be used in pregn valentina. Not Available [address], [address], 06/19/2022 11:00:07 06/18/19 23 06/19/2022 COMP. METAB OLIC PANEL sodium 140 mmol/ L 136-14 5 Not Available [address], [address], 06/19/2022 11:00:07 06/18/19 23 06/19/2022 COMP. METAB OLIC PANEL potassium 5.0 mmol/ L 3.5-5. 1 Not Available [address], [address], 06/19/2022 11:00:07 06/18/19 23 06/19/2022 COMP. METAB OLIC PANEL chloride 101 mmol/ L 96-107 Not Available [address], [address], 06/19/2022 11:00:07 06/18/19 23 06/19/2022 COMP. METAB OLIC PANEL anion gap 7.6 5.0-15 .0 Not Available [address], [address], 06/19/2022 11:00:07 06/18/19 23 06/19/2022 COMP. METAB OLIC PANEL CO2 31 mmol/ L 21-32 Not Available [address], [address], 06/19/2022 11:00:07 06/18/19 23 06/19/2022 COMP. METAB OLIC PANEL calcium 9.2 mg/dL 8.5-10 .3 Not Available [address], [address], 06/19/2022 11:00:07 06/18/19 23 06/19/2022 COMP. METAB OLIC PANEL total protein 7.2 g/dL 6.4-8. 2 Not Available [address], [address], 06/19/2022 11:00:07 06/18/19 23 06/19/2022 COMP. METAB OLIC PANEL albumin 4.2 g/dL 3.4-5. 0 Not Available [address], [address], 06/19/2022 11:00:07 06/18/19 23 06/19/2022 COMP. METAB OLIC PANEL globulin 3.0 g/dL Not Available [address], [address], 06/19/2022 11:00:07 06/18/19 23 06/19/2022 COMP. METAB OLIC PANEL A/G 1.4 ratio 0.8-2. 0 Not Available [address] [place], [address], 06/19/2022 11:00:07 06/18/19 23 06/19/2022 COMP. METAB OLIC PANEL total bilirubin 0.80 mg/dL 0.00-1 .00 Not Available [address], [address], 06/19/2022 11:00:07 06/18/19 23 06/19/2022 COMP. METAB OLIC PANEL AST 20 U/L 0-37 Not Available [address], [address], 06/19/2022 11:00:07 06/18/19 23 06/19/2022 COMP. METAB OLIC PANEL ALT 37 U/L 6-63 Not Available [address], [address], 06/19/2022 11:00:07 06/18/19 23 06/19/2022 COMP. METAB OLIC PANEL alk. phos. 117 U/L 50-136 Not Available [address], [address], 06/19/2022 11:00:07 06/18/19 23 06/19/2022 LIPID PANEL cholesterol 191 mg/dL <200 mg/dl Maty able 200-2 39 mg/dl Borde rline High >240 mg/dl High Not Available [address], [address], 06/19/2022 11:00:09 06/18/19 23 06/19/2022 LIPID PANEL triglyceride s 289 mg/dL high LIPS= Speci men Sligh tly Lipem ic. Chem Resul ts may be effec nicole. <150 mg/dL Karley l 150-1 99 mg/dL Borde rline High 200-4 99 mg/dL High >500 mg/dL Very High Not Available [address], [address], 06/19/2022 11:00:09 06/18/19 23 06/19/2022 LIPID PANEL direct HDL 54 mg/dL <40 mg/dl - Major Risk for CHD >60 mg/dl - Negat garry Risk for CHD Not Available [address], [address], 06/19/2022 11:00:09 06/18/19 23 06/19/2022 DIREC T LDL direct LDL 103 mg/dL RISK CATEG ORY LDL GOAL _ CHD or CHD Risk Equiv alent s <100 mg/dl (10-y ear risk >20%) 2+ Risk Facto rs <130 mg/dl (10-y ear risk <= 20%) 0-1 Risk Facto r? <160 mg/dl ? Almos t all peopl e with 0-1 risk facto r have a 10 year risk <10%, thus 10 year risk asses ment in peopl e with 0-1 risk facto r is not neces audrey. Not Available [address], [address], 06/19/2022 11:00:11 06/18/19 23 06/19/2022 HGB A1C hemoglobin A1C 10.7 % 4.8-6. 0 high Goal: <7% in Patie nts with Diabe sarina An A1c betwe en 5.7-6 .4% is ident ified as pre-d iabet es and sugge sts risk for progr essio n to diabe sarina Two a1c value s of 6.5% or highe r is consi stent with a diagn osis of diabe sarina but may need furth er confi rmati on Not Available [address], [address], 06/19/2022 12:22:00 06/18/19 23 06/19/2022 HGB A1C estimated average glucose 260.4 mg/dL Not Available [address], [address], 06/19/2022 12:22:00 09/13/19 23 09/14/2022 HGB A1C hemoglobin A1C 7.9 % 4.8-6. 0 high Goal: <7% in Patie nts with Diabe sarina An A1c betwe en 5.7-6 .4% is ident ified as pre-d iabet es and sugge sts risk for progr essio n to diabe sarina Two a1c value s of 6.5% or highe r is consi stent with a diagn osis of diabe sarina but may need furth er confi rmati on Not Available [address], [address], 09/14/2022 11:02:52 09/13/19 23 09/14/2022 HGB A1C estimated average glucose 180.0 mg/dL Not Available [address], [address], 09/14/2022 11:02:52 09/13/19 23 09/14/2022 MICRO ALBUM IN/CR EATIN INE RATIO PANEL , URINE microalbumin 8.0 mg/L 1.3-20 .0 Not Available [address], [address], 09/14/2022 12:27:09 09/13/19 23 09/14/2022 MICRO ALBUM IN/CR EATIN INE RATIO PANEL , URINE creatinine urine 100.6 mg/dL 30.0-1 25.0 Not Available [address], [address], 09/14/2022 12:27:09 09/13/19 23 09/14/2022 MICRO ALBUM IN/CR EATIN INE RATIO PANEL , URINE microalb/cre at ratio 8.0 mg/g_ creat 0.0-29 .0 Not Available [address], [address], 09/14/2022 12:27:09 06/10/20 22 06/10/2022 US abdom en limit ed right upper quadr ant US ABDOME N LIMITE D RIGHT UPPER QUADRA NT TECHNI QUE: US Abdomi nal limite d right upper quadra nt. COMPAR SHARLA: 022 FINDIN GS: Liver: Echoge joe, consis tent with hepati c steato sis, slight ly improv ed from the prior study. No focal lesion s. Main Portal Vein: Patent with normal direct ion of flow. Gallbl adder: There is a 1.8 cm gallst one as before , withou t signif icant gallbl adder wall thicke jose. No perich olecys tic fluid. Estevez 's Sign: Positi ve. Biliar y: Normal . No intrah epatic or extrah epatic biliar y ductal dilata tion. The common bile duct measur es 5 mm. No hydron ephros is in the right kidney The visual ized portio ns of the pancre as are unrema rkable . IMPRES NEGRO: 1. Hepati c steato sis, slight ly improv ed. 2. Cholel ithias is. Electr onical ly Signed by: Catalina lei on 2021 11:19 AM Interp reted by: Catalina Jay MD Signed by: Catalina Jay MD CC Recipi ents: Wallace Sweet MD - Fax Final result PS: f/u prior US, fatty liver Prior US 2 PANCRE : appear s wnl LIVER: hypere choic parenc hyma diffic ult to penetr ate GB: stone again seen 1.8 x 1.4 cm, negati ve Estevez 's CBD: appear s wnl, .5 cm PV: patent , hepato peatl RIGHT RENAL: no hydro AO PROX: appear s wnl IVC: appear s wnl WALLACE SWEET [facility] [address] [facility], [place], [address], 06/11/2022 07:07:36 10/14/19 23 09/17/2022 colon oscop y proce dure (PROC ) No observ ation record ed. BARCODE Not Available 2022 11:32:22 Result Notes None recorded. Problems Name Problem SNOMED Code Status Onset Date Resolution Date Notes Provider Name and Address Organization Details Recorded Time Essential hypertensi on 98137328 Active Not Available [facility] 3 21:02:46 Excessive cerumen in ear canal 060547497 Active Not Available [facility] 3 21:02:46 Anxiety 91437867 Active 2016 Not Available [facility] 3 21:02:46 Neuropathy due to diabetes mellitus 753479450 Active 2018 Not Available [facility] 3 21:02:46 Mixed hyperlipid emia 528204109 Active 2006 Not Available [facility] 3 21:02:46 Internal hemorrhoid s 44658904 Completed 200205/03/2013 Not Available [facility] 3 02:03:12 Effusion of joint of shoulder region 97869622 Completed 03/27/2014 Wallace Sweet MD [address] [place] [address], [address] , [facility] 4 05:26:27 Impotence of organic origin Active 2007 Not Available [facility] 3 21:02:46 Carpal tunnel syndrome 75104865 Active 2001 Not Available [facility] 3 21:02:46 Diabetes mellitus 98003608 Completed 200603/27/2014 Wallace Sweet MD [address] [place] [address], [address] , [facility] 4 05:26:27 Disorder of bursa of shoulder region 57480221 Completed 200705/03/2013 Not Available [facility] 3 02:04:09 Temporoman dibular joint disorder 85192776 Completed 200103/27/2014 Wallace Sweet MD [address] [place] [address], [address] , [facility] 4 05:26:43 Shoulder pain 34372672 Completed 200707/29/2008 Not Available [facility] 3 03:03:47 Shoulder pain 03810856 Completed 05/03/2013 Not Available [facility] 3 02:01:00 Benign essential hypertensi on 4669108 Completed 01/19/2012 Not Available [facility] 3 03:03:47 Impacted cerumen 95795389 Completed 200005/03/2013 Not Available [facility] 3 02:02:10 Pure hyperchole sterolemia 912247959 Completed 200203/27/2014 Wallace Sweet MD [address] [place] [address], [address] , [facility] 4 05:26:27 Medial epicondyli tis 32544692 Completed 200705/03/2013 Not Available [facility] 3 02:04:00 Obesity 695753321 Active 2006 Not Available [facility] 3 21:02:46 Abdominal pain 24153417 Completed 200205/03/2013 Not Available [facility] 3 02:01:20 On examinatio n - a rash Completed 05/03/2013 Not Available [facility] 3 02:00:46 Type 2 diabetes mellitus without complicati on 367688636 Completed 03/27/2014 Wallace Sweet MD [address] [place] [address], [address] , [facility] 4 05:26:43 Type 2 diabetes mellitus without complicati on 862713184 Completed 200601/05/2012 Not Available [facility] 3 03:03:47 Hearing loss 05976821 Active 2001 Not Available [facility] 3 21:02:46 Renal disorder due to type 2 diabetes mellitus 465268159 Active 2006 Not Available [facility] 3 21:02:46 Elevated blood-pres sure reading without diagnosis of hypertensi on 760875416 Completed 200103/27/2014 Wallace Sweet MD [address] [place] [address], [address] , [facility] 4 05:26:27 Sprain of knee and leg Completed 200205/03/2013 Not Available [facility] 3 02:03:04 Uncontroll ed type 2 diabetes mellitus 444952780 Active 2007 Not Available [facility] 3 21:02:46 Scrotal varices Active 2001 Not Available [facility] 3 21:02:46 Otogenic otalgia 40289560 Completed 200105/03/2013 Not Available [facility] 3 02:03:18 Notes:Some problems listed i n Document: #[id number] could not be added to this patient's chart. Please review this document and add these problems to the patient's chart manually as needed. Problem Notes None recorded. Procedures Surgical History Date Name Laterality Status Provider Name and Address Organization Details Recorded Time 01/09/20 22 Fundus Photography completed Erna Villalpando, OD [address] [place] [address], [phone], [facility] 01/09/2022 13:35:41 04/25/20 21 Fundus Photography completed Erna Villalpando, OD [address] [place] [address], [address], [facility] 04/25/2021 09:33:54 04/25/20 21 Optical Coherence Tomography (Retina) completed Erna Villalpando, OD [address] [place] [address], [address], [facility] 04/25/2021 09:34:09 05/23/20 19 Cerumen Removal - Irrigation/Lavag e completed Anabelle Bragg [facility] 05/23/2019 11:33:23 10/06/19 19 Cerumen Removal - Irrigation/Lavag e completed Yvonne Edwards [facility] 10/05/2018 14:20:07 01/08/20 18 Cerumen Removal - Irrigation/Lavag e completed Akua Pizano LPN [facility] 01/07/2018 16:13:04 07/19/19 18 Cerumen Removal - Irrigation/Lavag e completed Mary Lott LPN [facility] 07/19/2017 11:26:34 11/25/19 17 Glucose Meter Teaching completed Akua Pizano LPN [facility] 11/24/2016 09:44:01 09/20/19 17 Cerumen Removal - Irrigation/Lavag e completed Karina Eseppi [facility] 09/19/2016 13:28:46 12/17/19 16 Cerumen Removal completed Michelle Mary LPN [facility] 12/17/2015 11:32:24 03/07/20 15 Cerumen Removal completed Viri Gomez RN [facility] 03/07/2015 17:46:53 06/06/20 14 Cerumen Removal completed Shannan VelasquezGilles CONNOLLY [facility] 06/06/2014 09:00:42 10/06/19 13 Cerumen Removal completed Michelle Mary LPN [facility] 10/05/2012 11:59:21 04/14/20 12 Other (specify) completed Domenic Collazo MD [address] [place] [address], [phone], [facility] 04/04/2014 14:03:38 01/19/20 12 Cerumen Removal completed Cate Sims RN [facility] 01/19/2012 12:04:10 12/22/19 12 Treatment and Advice completed Ammy Chou OT [address] [place] [address], [address], [facility] 12/22/2011 13:00:06 08/11/19 11 Cerumen Removal completed [facility] 08/11/2010 16:18:17 10/15/19 10 Cerumen Removal completed Zo Johnston LPN [place] Irvin Cardenas y [facility] 10/14/2009 11:03:38 08/08/19 10 Aspiration Major Joint/Bursa completed Wallace Sweet MD [address] [place] [address], [phone], [facility] 08/08/2009 12:04:47 06/14/19 10 Other (specify) completed Domenic Collazo MD [address] [place] [address], [phone], [facility] 04/04/2014 14:03:38 12/20/19 09 Cerumen Removal completed Marge Richey NP [address] [place] [address], [phone], [facility] 12/19/2008 09:54:31 06/14/18 84 Appendectomy completed Domenic Collazo MD [address] [place], [address], [facility] 04/04/2014 14:03:38 06/14/18 71 Other (specify) completed Domenic Collazo MD [address] [place], [address], [facility] 04/04/2014 14:03:38 Imaging Results Imaging Date Name Status LastModified by Organiz ation Details LastModified Time 06/10/2022 US abdomen limited right upper quadrant completed [facility] [address] [place], [address], 06/11/2022 07:07:36 09/17/2022 colonoscopy procedure (PROC) completed BARCODE Information not available 10/13/2022 11:32:22 Procedure Notes None recorded. Medical Equipment None Reported. Allergies Allergen ID Allergen Name Allergen Category Reaction Reaction Severity Criticality Documentation Date Start Date Code Code System Note Provider Name and Address Organization Details Recorded Time Trulicity medicatio n abdominal pain moderate Not available 03/22/2020 20355 96 RxNorm Jumana Johnson [place] [facility], [facility] 11:01:03 Medications Name Sig Start Date Stop Date Status Note LastModified by Organization Details LastModified Time freestyle mis lite 03/30 completed Not Available Not Available Not Available Prescript ion - Prior Authoriza tion Request 12/01 completed [facility] Not Available Not Available Not Available cyclobenz aprine 10 mg tablet Take 1 tablet 3 times a day by oral route as directed for 5 days. 01/07 completed Not Available Not Available Not Available atorvasta tin 40 mg tablet TAKE 1 TABLET BY MOUTH ONCE DAILY 12/28 completed Not Available Not Available Not Available cefuroxim e axetil 250 mg tablet TAKE 1 TABLET BY MOUTH TWICE DAILY FOR 10 DAYS 12/28 completed Not Available Not Available Not Available sildenafi l 50 mg tablet Take 1 tablet every day by oral route. 07/19 completed Not Available Not Available Not Available glyburide 5 mg tablet take 2 pills bid 2013 active Not Available Not Available Not Avai lable ibuprofen 800 mg tablet 1 qhs 12/28 completed PRN Not Available Not Available Not Available FreeStyle Lancets 28 gauge USE ONE LANCET TO CHECK GLUCOSE THREE TIMES DAILY 12/28 completed Not Available Not Available Not Available glipizide 10 mg tablet TAKE 1 TABLET BY MOUTH TWICE DAILY 07/22 completed Not taking 04/06/22 AAS/Not taking at this time 07/22/22 JF Not Available Not Available Not Available Alcohol Pads use to check fingerst ick glucose 3 times daily 12/28 completed Not Available Not Available Not Available lovastati n 40 mg tablet TAKE 2 TABLETS BY MOUTH ONCE DAILY 06/18 completed Not taking 04/06/22 AAS Not Available Not Available Not Available metformin 850 mg tablet 1BID - TAKE ONE TABLET BY MOUTH TWICE DAILY 2009 active Not Available Not Available Not Avai lable penicilli n V potassium 500 mg tablet 03/22 completed Not Available Not Available Not Available lovastati n 10 mg tablet 1PM - TAKE ONE TABLET BY MOUTH IN THE EVENING 2009 active Not Available Not Available Not Avai lable alprazola m 0.5 mg tablet TAKE 1 or 2 TABLETS (0.5 MG) BY ORAL ROUTE 1 hour prior to flight. May repeat in 6 hours prn 07/13 completed Not Available Not Available Not Available lorazepam 0.5 mg tablet 1-2 tablets as needed by mouth for fear of flying 12/30 completed Not Available Not Available Not Available doxycycli ne monohydra te 100 mg capsule TAKE 1 CAPSULE BY MOUTH TWICE DAILY FOR 10 DAYS 12/28 completed Not Available Not Available Not Available metformin 1,000 mg tablet Take 1 tablet by mouth twice daily 12/28 completed Not Available Not Available Not Available Anaprox DS 550 mg tablet Take 1 tablet every 12 hours by oral route. 2009 active Not Available Not Available Not Avai lable cephalexi n 500 mg tablet Take 1 tablet every 6 hours by oral route. 07/22 completed Not taking at this time 07/22/22 JF Not Available Not Available Not Available bisacodyl 5 mg tablet,de layed release TAKE 4 TABLETS BY MOUTH WITH 8 OUNCES OF CLEAR LIQUIDS ONCE A DAY FOR 1 DAY (INSTRUC TIONS GIVEN BY OFFICE) 09/21 completed Not taking at this time 09/21/22 JF Not Available Not Available Not Available lisinopri l 5 mg tablet Take 1 tablet by mouth once daily active Not Available Not Available No t Available Cheratuss in AC 10 mg-100 mg/5 mL oral liquid Take 10 mL every 4 hours by oral route as needed. 10/05 completed Not Available Not Available Not Available selenium sulfide 2.5 % shampoo Apply to affected area(s) by topical route nightly for 7 days 2009 active Not Available Not Available Not Avai lable ibuprofen 600 mg tablet Take 1 tablet 3 times a day by oral route as directed for 7 days. 01/07 completed Not Available Not Available Not Available Percocet 5 mg-325 mg tablet Take 1 tablet every 6 hours by oral route. 2009 active Not Available Not Available Not Avai lable lisinopri l 2.5 mg tablet 1QD - TAKE ONE TABLET BY MOUTH EVERY DAY 2008 active Not Available Not Available Not Avai lable Diflucan 200 mg tablet take 2 pills today and repeat in one week. 2010 active Not Available Not Available Not Avai lable Tessalon Perle 100 mg capsule Take 1 capsule 3 times a day by oral route. 03/08 completed Not Available Not Available Not Available Fish Oil one daily active Not Available Not Available No t Available multivita min one daily 12/28 completed Not Available Not Available Not Available One Touch Ultra Test Strips test blood sugars 4 times a day 08/05 completed Not Available Not Available Not Available peg 3350-elec trolytes 236 gram-22.7 4 gram-6.74 gram-5.86 gram solution TAKE DIRECTED , 09/21 completed not taking #J F Not Available Not Available Not Available FreeStyle Lite Meter kit use 3 times a day 12/28 completed Not Available Not Available Not Available FreeStyle Lite Strips USE ONE TEST STRIP TO CHECK BLOOD GLUCOSE THREE TO 4 TIMES DAILY 03/30 completed Not Available Not Available Not Available FreeStyle Lite Strips test 3 x daily 12/28 completed Not Available Not Available Not Available Lantus Solostar U-100 Insulin 100 unit/mL (3 mL) subcutane ous pen INJECT 50 UNITS SUBCUTAN EOUSLY ONCE DAILY AT BEDTIME 12/28 completed Not Available Not Available Not Available Humalog KwikPen (U-100) Insulin 100 unit/mL subcutane ous INJECT 30 UNITS SUBCUTAN EOUSLY THREE TIMES DAILY BEFORE MEAL(S) active Not Available Not Available No t Available Victoza 3-[place] 0.6 mg/0.1 mL (18 mg/3 mL) subcutane ous pen injector INJECT 1.8 MG SUBCUTAN EOUSLY ONCE DAILY 10/05 completed Not Available Not Available Not Available Trulicity 1.5 mg/0.5 mL subcutane ous pen injector INJECT 1.5 MG (0.5 ML) SUBCUTAN EOUSLY ONCE A WEEK DOSE INCREASE 07/14 completed Pt stopped it due to side effects Not Available Not Available Not Available Trulicity 0.75 mg/0.5 mL subcutane ous pen injector INJECT 0.5 ML SUBCUTAN EOUSLY ONCE A WEEK DIRECTED 04/08 completed Not Available Not Available Not Available Humalog KwikPen U-200 Insulin 200 unit/mL (3 mL) subcutane ous Inject 30 units 3 times a day by subcutan eous route. 07/27 completed Not Available Not Available Not Available BD Lashaun 2nd Gen Pen Needle 32 gauge x 32 USE 1 DIRECTED TO INJECT INSULIN 4 TIMES DAILY 12/28 completed Not Available Not Available Not Available COVID-19 test specimen collectio n TEST DIRECTED TODAY 12/01 completed Not Available Not Available Not Available FreeStyle Pushpa 2 Sensor kit APPLY 1 DIRECTED TO MONITOR BLOOD GLUCOSE. CHANGE SENSOR EVERY 2 WEEKS active Not Available Not Available No t Available Trulicity 3 mg/0.5 mL subcutane ous pen injector Inject 3 mg every week by subcutan eous route as directed for 30 days. 07/14 completed Pt stopped due to side effects. Not Available Not Available Not Available Vitals Date Recorded Body height Provider Name an d Address Organization Details Last Updated DateTime 04/06/2022 177.8 cm Socorro Mckeon MA [facility] 04/06/[facility]22 11:08:28 Date Recorded Heart rate Provider Name an d Address Organization Details Last Updated DateTime 04/06/2022 84 /min Socorro Mckeon MA [facility] 04/06/2022 11:09:05 Date Recorded Body temperature Provider Name a nd Address Organization Details Last Updated DateTime 04/06/2022 98.1 [degF] Socorro Mckeon MA [facility] 04/06/2022 11:10:32 Date Recorded Body mass index (BMI) Provider Name and Address Organization Details Last Updated DateTime 04/06/2022 31.1 kg/m2 Socorro Mckeon MA [facility] 04/06/2022 11:10:52 Date Recorded Body weight Provider Name an d Address Organization Details Last Updated DateTime 04/06/2022 23590.75 g Socorro Mckeon MA [facility] 04/06/2022 11:10:53 Date Recorded Body height Provider Name an d Address Organization Details Last Updated DateTime 06/18/2022 177.8 cm Nadira BorgesVICKI [facility] 06/18/2022 13:56:28 Date Recorded Body mass index (BMI) Body weight Provider Name and Address Organization Details Last Updated DateTime 06/18/2022 31.7 kg/m2 601156.91 g Nadira Jony Miles [facility] 06/18/2022 13:56:35 Date Recorded Body temperature Provider Name a nd Address Organization Details Last Updated DateTime 06/18/2022 98.1 [degF] Nadira Borges Miles [facility] 06/18/2022 14:03:30 Date Recorded Heart rate Provider Name an d Address Organization Details Last Updated DateTime 06/18/2022 90 /min Nadira Borges Miles [facility] 06/18/2022 14:03:47 Date Recorded Oxygen saturation Oxygen saturation in Arterial blood by Pulse oximetry Provider Name and Address Organization Details Last Updated DateTime 06/18/2022 97 % 97 % Nadiramagali Borges Miles [facility] 06/18/2022 14:03:58 Date Recorded Body height Provider Name an d Address Organization Details Last Updated DateTime 07/22/2022 177.8 cm Gloria huang [facility] 07/22/2022 14:37:03 Date Recorded Heart rate Provider Name an d Address Organization Details Last Updated DateTime 07/22/2022 80 /min Gloria huang [facility] 07/22/2022 14:42:24 Date Recorded Oxygen saturation Oxygen saturation in Arterial blood by Pulse oximetry Provider Name and Address Organization Details Last Updated DateTime 07/22/2022 97 % 97 % Gloria Crockett [facility] 07/22/2022 14:42:25 Date Recorded Body height Provider Name an d Address Organization Details Last Updated DateTime 08/10/2022 177.8 cm Gloria huang [facility] 08/10/2022 08:02:05 Date Recorded Heart rate Provider Name an d Address Organization Details Last Updated DateTime 08/10/2022 82 /min Gloria huang [facility] 08/10/2022 08:05:57 Date Recorded Oxygen saturation Oxygen saturation in Arterial blood by Pulse oximetry Provider Name and Address Organization Details Last Updated DateTime 08/10/2022 96 % 96 % Gloria Crockett [facility] 08/10/2022 08:07:33 Date Recorded Body weight Provider Name an d Address Organization Details Last Updated DateTime 08/17/2022 91063.47 g Gloria huang [facility] 08/17/2022 15:25:38 Date Recorded Body temperature Provider Name a nd Address Organization Details Last Updated DateTime 08/17/2022 97.2 [degF] Gloria Crockett [facility] 08/17/2022 15:25:55 Date Recorded Heart rate Provider Name an d Address Organization Details Last Updated DateTime 08/17/2022 88 /min Gloria huang [facility] 08/17/2022 15:26:03 Date Recorded Respiratory rate Provider Name a nd Address Organization Details Last Updated DateTime 08/17/2022 16 /min Gloria Crockett [facility] 08/17/2022 15:26:07 Date Recorded Oxygen saturation Oxygen saturation in Arterial blood by Pulse oximetry Provider Name and Address Organization Details Last Updated DateTime 08/17/2022 96 % 96 % Gloria Crockett [facility] 08/17/2022 15:26:11 Date Recorded Body height Provider Name an d Address Organization Details Last Updated DateTime 09/21/2022 177.8 cm Gloria huang [facility] 09/21/2022 15:07:55 Date Recorded Body mass index (BMI) Provider Name and Address Organization Details Last Updated DateTime 09/21/2022 32.7 kg/m2 Gloria Crockett [facility] 09/21/2022 15:08:27 Date Recorded Body weight Provider Name an d Address Organization Details Last Updated DateTime 09/21/2022 138138.06 g Gloria huang [facility] 09/21/2022 15:08:28 Date Recorded Systolic blood pressure Diastolic blood pressure Provider Name and Address Organization Details Last Updated DateTime 04/06/2022 136 mm[Hg] 74 mm[Hg] Socorro Mckeon [facility] 04/06/2022 11:09:57 Date Recorded Systolic blood pressure Diastolic blood pressure Provider Name and Address Organization Details Last Updated DateTime 06/18/2022 140 mm[Hg] 66 mm[Hg] VICKI Funes [facility] 06/18/2022 14:03:45 Date Recorded Systolic blood pressure Diastolic blood pressure Provider Name and Address Organization Details Last Updated DateTime 07/22/2022 128 mm[Hg] 60 mm[Hg] Gloria Crockett [facility] 07/22/2022 14:42:18 Date Recorded Systolic blood pressure Diastolic blood pressure Provider Name and Address Organization Details Last Updated DateTime 08/10/2022 112 mm[Hg] 60 mm[Hg] Gloria Crockett [facility] 08/10/2022 08:07:48 Date Recorded Systolic blood pressure Diastolic blood pressure Provider Name and Address Organization Details Last Updated DateTime 08/17/2022 144 mm[Hg] 69 mm[Hg] Gloria Crockett MA [facility] 08/17/2022 15:25:48 Date Recorded Systolic blood pressure Diastolic blood pressure Provider Name and Address Organization Details Last Updated DateTime 09/21/2022 128 mm[Hg] 64 mm[Hg] Gloria Crockett MA [facility] 09/21/2022 15:11:54 Social History Question Answer Notes LastModified by Organizat ion Details LastModified Time Tobacco Smoking Status Never Smoker Not Available [facility] 2011 04:53:49 Do You Have An Advance Directive? No DBA_[email or web address] Information not available 2011 What Is Your Level Of Alcohol Consumption? Moderate 1-2 Every 2-3 Weeks [email or web address] Information not available 07/22/2022 What Is Your Level Of Caffeine Consumption? Heavy 4-5 Cups Coffee Daily [email or web address] Information not available 06/13/2020 How Much Tobacco Do You Chew? None Information not available 07/28/2012 What Type Of Diet Are You Following? REGULAR Information not available 05/23/2019 Which Illicit Or Recreational Drugs Have You Used? No Recreational Drugs [email or web address] Information not available 04/04/2014 Do You Or Have You Ever Used E-cigarettes Or Vape? 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 3 Information not available 07/28/2012 Are There Any Guns Present In Your Home? No DBA_PATCH_ [email or web address] Information not available 2011 Live Alone Or With Others? With Others DBA_[email or web address] Information not available 2011 Does The Patient Have Difficulty Speaking Cymraes? No Information not available 03/07/2015 Does The Patient Have Difficulty Reading Cymraes? No Information not available 03/07/2015 DM Disease Process Not Assessed Information not available 10/19/2019 Nutrition Not Assessed Information not available 10/19/2019 Physical Activity Post-shows Competency 10/19/19 Information not available 03/16/2017 Medications Post-needs Review 10/19/19 Information not available 07/15/2019 Monitoring Post-needs Review 10/19/19 Information not available 08/23/2019 Acute Complications Not Assessed Information not available 10/19/2019 Chronic Complications Post-needs Review 10/19/19 Information not available 07/15/2019 Coping Post-shows Competency 10/19/19 Information not available 03/16/2017 Behavior Change Post-shows Competency 08/23/19 Information not available 03/16/2017 DSME Plan Goal Monitoring: Continue To Write All Blood Sugars Down In Notebook. Information not available 05/04/2019 DSME Plan Goal Success 100%-always: Information not available 10/19/2019 DSME Plan Goal Evaluation: 10/19/2019 Information not available 10/19/2019 DSME Plan Initiated: 10/16/2015 MNTx2-3; DSME Dates Seen: 2015 X3; 2016 X3; 06/27/18; 08/02/18; 05/04/19; 07/12/19; 08/23/19; 10/19/19 Information not available 09/01/2016 DSME Plan Status In Progress - boy borrego not available 02/10/2012 Diabetes Ed Classes Discussed Patient Not Appropriate Information not available 05/04/2019 Marital Status Information not available 2011 Mosquito Repellent Used Routinely No When He Knows He Will Need It Information not available 11/07/2008 What Was The Date Of Your Most Recent Tobacco Screening? 09/21/2022 [email or web address] Information not available 09/21/2022 How Many Children Do You Have? 3 DBA_PATCH_ [email or web address] Information not available 2011 What Is Your Relationship Status? Information not available 12/01/2021 Do You Use Your Seat Belt Or Car Seat Routinely? Yes Information not available 12/01/2021 Seat Belts Used Routinely Yes DBA_[email or web address] 117 Information not available 2011 Smoke Alarm In Home Yes DBA_PATCH_ 117 Information not available 2011 Do You Have Smoke And Carbon Monoxide Detectors In Your Home? Yes Information not available 12/01/2021 Do You Or Have You Ever Used Smokeless Tobacco? Never Used Smokeless Tobacco Information not available 05/23/2019 How Much Tobacco Do You Smoke? No DBA_PATCH_ 117 Information not available 2011 General Stress Level High Information not available 07/28/2012 Do You Use Sunscreen Routinely? No DBA_PATCH_ 117 Information not available 2011 Do You Or Have You Ever Used Any Other Forms Of Tobacco Or Nicotine? No [email or web address] Information not available 07/22/2022 Sex: Unknown Functional Status Question Answer Note LastModified by Organizat ion Details LastModified Time What is your exercise level? Occasional 2x/wk Information not available 12/01/2021 Mental Status None recorded. Family History Relationship Description Onset Age of this Age Resolved Age Notes LastModified by Organization Details LastModified Time Father Diabetes mellitus previo usly record ed as Diabet es [email or web address] Not available 05/04/2014 13:53:42 Mother Chronic obstructive pulmonary disease [email or web address] Not available 2013 13:53:42 Paternal Grandfather Malignant tumor of lung [email or web address] Not available 2013 13:53:42 Medical History Condition Response Erectile Dysfunction Y Diabetes Type II Y Hyperlipidemia Y Hypertension Y Immunizations Vaccine Type Date Status Note Provider Nam e and Address Organization Details Recorded Time Td(adult) unspecified formulation 7 completed Not Available [facility] 10/01/2022 21:02:47 influenza, unspecified formulation 7 completed Not Available [facility] 10/01/2022 21:02:47 pneumococcal polysaccharide PPV23 7 completed Not Available [facility] 10/01/2022 21:02:47 influenza, unspecified formulation 7 completed Not Available [facility] 10/01/2022 21:02:47 influenza, unspecified formulation 8 completed Not Available [facility] 10/01/2022 21:02:47 Influenza, split virus, quadrivalent, PF 3 completed Not Available [facility] 07/01/2019 02:26:42 Influenza, split virus, trivalent, preservative 4 completed Not Available [facility] 10/01/2022 21:02:47 Influenza, split virus, quadrivalent, PF 9 completed Not Available [facility] 07/01/2019 02:38:00 Tdap 2 completed Wallace Sweet MD [address] [place] [address], [id number], [facility] 12/02/2021 13:46:50 COVID-19, mRNA, LNP-S, PF, 30 mcg/0.3 mL dose 1 completed Not Available [facility] 10/01/2022 21:02:47 COVID-19, mRNA, LNP-S, PF, 30 mcg/0.3 mL dose 1 completed Not Available [facility] 10/01/2022 21:02:47 Past Encounters Encounter ID Performer Location Encounter Start Date Encounter Closed Date Diagnosis/Indication Diagnosis SNOMED-CT Code Diagnosis ICD10 Code Diagnosis Note [id number] [facility], OFFICE [address] [place] [address] 10/27/2000 10:45:00 07/04/2008 02:02:29 [id number] [facility], OFFICE [address] [place] [address] 11/25/2001 10:38:36 07/04/2008 02:02:29 [id number] [facility], OFFICE [address] [place] [address] 11/22/2001 12:58:05 07/04/2008 02:02:29 [id number] [facility], OFFICE [address] [place] [address] 02/17/2002 10:16:06 07/04/2008 02:02:29 [id number] [facility], OFFICE [address] [place] [address] 04/11/2002 10:38:32 07/04/2008 02:02:29 [id number] [facility], OFFICE [address] [place] [address] 05/18/2002 08:54:31 07/04/2008 02:02:29 [id number] [facility] - [facility] [address] [place] [address] 06/23/2002 08:25:25 07/04/2008 02:02:29 [id number] CLAUDE [facility], OFFICE [address] [id number] 6 10/27/2002 10:38:56 07/04/2008 02:02:29 [id number] CLAUDE [facility], OFFICE [address] [place] [address] 12/04/2002 14:46:36 07/04/2008 02:02:29 [id number] LAB - [facility] 70 [facility] [place] [address] 12/04/2002 00:00:00 07/04/2008 02:02:29 [id number] CLAUDE [facility], OFFICE [address] [id number] 6 12/19/2002 16:00:41 07/04/2008 02:02:29 [id number] CLAUDE [facility], OFFICE [address] [place] [address] 05/21/2003 13:45:19 05/21/2003 17:33:03 [id number] CLAUDE [facility], OFFICE [address] [place] [address] 11/01/2003 16:14:38 11/02/2003 10:55:10 [id number] CLAUDE [facility], OFFICE [address] [place] [address] 06/09/2004 09:12:28 06/09/2004 14:35:16 [id number] CLAUDE [facility], OFFICE [address] [place] [address] 07/17/2005 09:52:58 07/17/2005 15:36:35 [id number] CLAUDE [facility], OFFICE [address] [place] [address] 07/05/2006 10:47:49 07/05/2006 15:09:32 [id number] LAB - [facility] [address] [place] [address] 07/06/2006 07:27:25 07/06/2006 07:27:29 [id number] CLAUDE [facility], OFFICE [address] [place] [address] 07/09/2006 13:58:02 07/09/2006 15:28:32 [id number] LAB - [facility] [address] [place] [address] 07/09/2006 14:56:53 07/09/2006 14:57:19 [id number] [facility], OFFICE [address] [place] [address] 07/16/2006 00:00:00 07/04/2008 02:02:29 [id number] [facility], OFFICE [address] [place] [address] 07/23/2006 07:25:57 07/23/2006 11:32:05 [id number] [facility], OFFICE [address] [place] [address] 07/26/2006 13:43:23 07/26/2006 16:17:18 [id number] LAB - [facility] [address] [place] [address] 08/09/2006 07:13:41 08/09/2006 07:13:45 [id number] [facility], OFFICE [address] [place] [address] 08/27/2006 08:04:39 08/27/2006 11:15:54 [id number] CLAUDE [facility], OFFICE [address] [place] [address] 08/24/2006 08:24:16 09/13/2006 14:24:02 [id number] CLAUDE BHARTI, OFFICE [address] [place] [address] 12/21/2006 14:50:21 12/23/2006 08:29:08 [id number] LAB - [facility] [address] [place] [address] 12/24/2006 07:43:32 12/24/2006 07:43:36 [id number] LAB - [facility] [address] [place] [address] 03/16/2007 07:12:11 03/16/2007 07:12:16 [id number] CLAUDE [facility], OFFICE [address] [place] [address] 03/22/2007 15:01:47 07/04/2008 02:02:29 [id number] [facility], OFFICE [address] [place] [address] 05/23/2007 09:05:39 07/04/2008 02:02:29 [id number] LAB - [facility] [address] [place] [address] 05/27/2007 07:46:56 05/27/2007 07:47:00 [id number] [facility], OFF[place] [address] [place] [address] 07/22/2007 10:48:34 07/04/2008 02:02:29 [id number] CLAUDE [facility], OFFICE 70 [facility] ANN [place] 6 12/22/2007 14:13:35 07/04/2008 02:02:29 [id number] LAB - [facility] [address] [place] [address] 12/21/2007 07:18:47 12/21/2007 07:18:53 [id number] Physical Therapy, [facility] [address] [id number] 6 12/28/2007 16:24:57 12/29/2007 09:55:50 [id number] CLAUDE [facility], OFFICE [address] [facility] [place] [address] 01/16/2008 13:54:48 07/04/2008 02:02:29 [id number] Physical Therapy, [facility] [place] [address] 01/11/2008 16:24:51 01/24/2008 14:08:00 [id number] CLAUDE [facility], OFFICE [address] [facility] [place] [address] 02/22/2008 08:46:10 07/04/2008 02:02:29 [id number] CLAUDE [facility], OFFICE [address] [facility] [place] [address] 02/27/2008 10:14:54 07/04/2008 02:02:29 [id number] LAB - [facility] [address] [place] [address] 04/19/2008 07:02:00 04/19/2008 07:02:05 [id number] CLAUDE [facility], OFFICE [address] [facility] [place] [address] 05/03/2008 09:17:10 07/04/2008 02:02:29 [id number] CLAUDE [facility], OFFICE [address] [facility] [place] [address] 05/08/2008 10:28:13 07/04/2008 02:02:29 [id number] CLAUDE [facility], OFFICE [address] [facility] [place] [address] 05/17/2008 10:44:38 07/04/2008 02:02:29 [id number] CLAUDE [facility], OFFICE [address] [facility] [place] [address] 07/26/2008 10:36:24 07/30/2008 11:01:51 [id number] [facility], OFFICE [address] [id number] 6 11/07/2008 10:33:14 11/12/2008 14:37:51 [id number] Radiology , [facility] [address] [id number] 6 11/07/2008 11:51:45 11/09/2008 11:42:29 [id number] [facility], OFFICE 70 [facility] ANN HERNANDEZ62[address] 6 12/19/2008 09:10:58 12/19/2008 14:12:15 [id number] [facility], OFFICE 70 [facility] ANN HERNANDEZ[address] 6 02/20/2009 16:27:04 02/21/2009 14:15:54 [id number] LAB - [facility] 70 [facility] ANN Choi[address] 6 10/29/2008 07:04:44 10/29/2008 07:04:54 [id number] Eye [facility], [facility] 70 [facility] ANN [id number] 6 12/04/2008 08:35:01 12/04/2008 14:08:24 [id number] LAB - [facility] Wan [facility] [address] 02/05/2009 08:52:32 02/05/2009 08:52:40 [id number] [facility], OFFICE [address] [facility] [place] [address] 08/08/2009 10:49:48 08/09/2009 11:28:19 [id number] [facility], OFFICE [address] [facility] [place] [address] 09/17/2009 10:57:01 09/19/2009 12:48:32 [id number] [facility], OFFICE [address] [facility] [place] [address] 10/01/2009 09:16:37 10/01/2009 14:51:25 [id number] [facility], OFFICE [address] [facility] [place] [address] 10/14/2009 10:06:27 10/14/2009 12:00:02 [id number] [facility], OFFICE [address] [facility] [place] [address] 01/16/2010 07:41:39 01/16/2010 12:37:13 [id number] FP, [facility], OFFICE [address] [place] [address] 08/11/2010 14:49:16 08/14/2010 13:29:10 [id number] FP, [facility], OFFICE [address] [id number] 6 09/04/2010 11:12:12 09/09/2010 08:33:12 [id number] FP, [facility], OFFICE [address] [id number] 6 01/14/2011 10:09:19 01/14/2011 11:23:50 [id number] , [facility], OFFICE [address] [id number] 6 04/10/2011 11:50:57 04/13/2011 13:24:56 [id number] FP, [facility], OFFICE [address] [id number] 6 12/22/2011 07:59:48 12/22/2011 14:26:16 [id number] Radiology , [facility] [address] [place] [address] 12/22/2011 08:46:23 12/23/2011 11:15:39 [id number] Physical Therapy, [facility] 70 [facility] [place] Ch[place] 6 12/22/2011 12:29:23 12/23/2011 07:34:56 [id number] [facility], OFFICE [address] [id number] 6 01/05/2012 08:28:16 01/05/2012 09:29:20 [id number] Physical Therapy, [facility] 70 [facility] ANN [id number] 6 01/05/2012 12:21:57 01/05/2012 13:09:59 [id number] Physical Therapy, [facility] 70 [facility] [place] [id number] 6 01/14/2012 14:16:39 01/15/2012 07:40:59 [id number] Domenic Collazo MD , [facility], OFFICE [address] [id number] 6 01/19/2012 07:32:37 01/19/2012 09:15:36 [id number] Nutrition -[facility] [address] [place] [id number] 6 02/10/2012 08:18:57 02/10/2012 09:08:04 [id number] Domenic Collazo MD , [facility], OFFICE [address] [place] [address] 07/28/2012 08:56:22 07/28/2012 09:46:12 [id number] Makayla Solares , [facility], OFFICE [address] [place] [address] 10/05/2012 11:05:15 10/05/2012 15:55:29 [id number] Wallace Sweet MD , [facility], OFFICE [address] [place] [address] 06/13/2013 08:52:36 06/13/2013 09:57:34 Influenza vaccine needed [id number] Mixed hyperlipidemia 989336333 continue to work on diet and exercise as discussed Uncontroll ed type 2 diabetes mellitus 716542401 Benign ess ential hypertension 6583853 continue to work on diet ,exercisea nd lowering salt intake as discussed [id number] JUANIS Law-AIDA , [facility], OFFICE [address] [place] [address] 08/04/2013 15:13:51 08/07/2013 13:22:35 Impacted cerumen [id number] irrigated in clinic no complicati ons. [id number] Gloria Murphy [facility], OFFICE [address] [place] [address] 03/26/2014 16:14:43 03/26/2014 16:49:19 Benign essential hypertension 6943793 Mixed hyperlipidemia [id number] Uncontroll ed type 2 diabetes mellitus 967541218 Renal diso rder due to type 2 diabetes mellitus 587735444 Benign par oxysmal positional vertigo [id number] Gloria Murphy Endocrino logy, [facility] [address] [place] [address] 04/04/2014 13:14:50 04/04/2014 15:08:28 Uncontrolled type 2 diabetes mellitus [id number] -continue metformin 1g 2x/d -stop glyburide, change to glipizide 10mg 2x/d -start victoza 0.6 mg once daily for 1 week; then increase to 1.2 mg once daily Obesity 259107294 Essential hypertension 54650380 -lisinopri l Mixed hyperlipidemia 253397076 -lovastati n [id number] Taisha Johnston Physical Therapy, [facility] [address] [place] [address] 04/16/2014 16:18:50 04/17/2014 08:27:41 Benign paroxysmal positional vertigo 997816978 [id number] Taisha Johnston Physical Therapy, [facility] [address] [place] [address] 2014 12:01:49 2014 13:34:38 Benign paroxysmal positional vertigo 794088742 [id number] Endocrino [address] [address] 05/04/2014 13:01:46 05/04/2014 14:08:08 Uncontrolled type 2 diabetes mellitus [id number] -continue metformin 1g 2x/d -continue glipizide 10mg 1 x/d, may decrease to 1/2 tab daily if less than 100mg/dL after taking this medicine and then stop if still less than 100mg/dL -continue victoza 1.2 mg subcut once daily, may then decrease and stop if regularly less than 100mg/dL Obesity 778706811 Essential hypertension 27747412 -lisinopri l Mixed hyperlipidemia 344021388 -lovastati n [id number] [facility], OFFICE [address] [place] [address] 06/06/2014 08:18:24 06/08/2014 08:28:39 Excessive cerumen in ear canal 593582650 recurrence [id number] Johanne Maribel [facility], OFFICE [address] [place] [address] 08/13/2014 16:22:39 08/13/2014 17:04:10 Benign essential hypertension 5977736 Mixed hyperlipidemia 737537684 Type 2 sailaja betes mellitus without complication [id number] JUANIS Farfan [facility], [address] [place] [address] 11/14/2014 16:22:50 11/14/2014 16:48:58 Pain in right lower limb [id number] upper leg, post fall on ice 2-3 months, not fulle recovered, will refer to PT for further evaluation , advised to use ice alternatin g w/heat x 20 m. X 3-4 x/day, Ibuprofen 200 mg 3 tabs TID for the next 7-10d, take w/food, F/U PRN, may need further evaluation w/Orthoped ist, agrees w/plan. [id number] Jumana Johnson MA , [facility], [address] [place] [address] 12/10/2014 16:14:55 12/10/2014 16:41:53 Mixed hyperlipidemia 109717115 Benign ess ential hypertension 4850502 Type 2 sailaja betes mellitus without complication 177751455 Obesity 214210089 [id number] Mary Kate Weir MD , [facility], [address] [place] [address] 03/07/2015 16:40:20 03/08/2015 11:19:32 Lifestyle [id number] Impacted cerumen [id number] bilateral impacted cerumen, rinsed out with resolution . [id number] Wallace Sweet MD , [facility], [address] [place] [address] 07/08/2015 08:36:19 07/08/2015 09:15:01 Mixed hyperlipidemia 712499318 E78.2 Benign ess ential hypertension 1748958 I10 Uncontroll ed type 2 diabetes mellitus 671785804 E11.65 Acute situ ational disturbance 988588793 F43.20 Chest pain 04648885 R07. 9 [id number] Wallace Sweet MD , [facility], [address] [place] [address] 10/07/2015 16:18:20 10/07/2015 16:49:45 Benign essential hypertension 6637443 I10 . Mixed hyperlipidemia 267 463756 E78.2 continue to work on diet and exercise as discussed Uncontroll ed type 2 diabetes mellitus 723009769 E11.65 Obesity 322031511 E66.9 Impotence 743173092 N52. 9 [id number] Sarika Rose RN, BSN, [facility] , [address] [address] 10/16/2015 15:17:49 10/16/2015 16:45:28 Uncontrolled type 2 diabetes mellitus 061659923 E11.65 [id number] Kaye Zhao, JUANIS-AIDA , [facility], [address] [place] [address] 12/17/2015 10:18:10 12/18/2015 10:57:34 Impacted lemuel 68547887 H61.23 irrigated without issue in clinic. [id number] Wallace Sweet MD , [facility], [address] [place] [address] 01/06/2016 15:21:50 01/06/2016 16:18:35 Benign essential hypertension 3930674 I10 Blood pressure at goal Mixed hyperlipidemia 267 572349 E78.2 continue to work on diet and exercise as discussed Uncontrol ed type 2 diabetes mellitus 359211426 E11.65 [id number] Sarika Rose RN, BSN, [facility] DM Education , [address] [address] 01/15/2016 15:14:26 01/21/2016 12:10:03 Uncontrolled type 2 diabetes mellitus 288716039 E11.65 Met with Wilberto today for diabetes education, kindly referred by Dr. Sweet. Wilberto has had diabetes for about 10 years now. When he was seen in October, his A1C had increased to 10.2% and now it is 11.1%. His A1C started to increase as of November 2014. Since he saw Dr. Sweet in December, he admits he has been testing 2x/day and he is starting to cut back on his carbohydra sarina. He believes he had increased his fruit intake and thinks this may be the cause of his hyperglyce jil. He would have 1-2 fruits with his meal or as a snack. He continues to be treated with Metformin 1,000 mg BID, Glipizide 10 mg BID and Victoza 1.8 mg QD. He increased his dose of Victoza and takes it at night and he reports he is waking up with lower readings in the 88 range, which make him feel low , therefore, he may try changing the time of day when he takes the Victoza. He is aware that he may have to start insulin if his numbers remain elevated. Therefore, he will continue to work on lifestyle changes and bring his meter to next appointmen t. He will likely need insulin if his blood sugars do not improve by February. Wilberto verbalized understand ing and agreeing with plan. Reviewed the following: Disease Process : Goals of Treatment. Natural progressio n of diabetes Monitoring : Appropriat e times to test blood sugar and target blood sugars. Nutrition : Identifica tion of high carb foods, effects of carbs, carb counting and developing a meal plan. Label reading. Plate Method. Physical Activity : Introducti on to its importance . Effects of regular physical activity on blood sugars. [id number] Sarika Rose RN, BSN, [facility] DM [facility] , [facility] [address] [place] [address] 03/11/2016 14:57:26 03/11/2016 16:55:46 Uncontrolled type 2 diabetes mellitus [id number] E11.65 Met with Wilberto today for follow up of his diabetes education, kindly referred by Dr. Sweet. Wilberto has had diabetes for about 10 years now. In October, his A1C was 10.2% and now it is higher at 11.1%. His A1C started to increase as of November 2014. He is currently being treated with Metformin 1,000 mg BID, Glipizide 10 mg BID and Victoza 1.8 mg QD. He did not bring his glucose meter and he forgot to bring it to his previous visit. He reports he is testing 2x/day, morning and evening and his blood sugars are averaging 170 mg/dl. He was encouraged to bring his meter to future appointmen for download. If his A1C remains elevated or his meter download reveals blood sugars that are elevated, then we will have to consider insulin at the next visit. Wilberto continues to remain active most days due to an active job. He also goes running 2x/week. He is busy with working, taking a class outside of work, caring for his child and working from home. He is also trying the Nutrisyste m diet that his recommende d. Reviewed carbohydra te counting as another option because he does not think he will continue the Nutrisyste m diet. No changes were made today. Wilberto verbalized understand ing and agreeing with plan. Reviewed the following: Disease Process : Goals of Treatment. Natural progressio n of diabetes Monitoring : Appropriat e times to test blood sugar and target blood sugars. Nutrition : Identifica tion of high carb foods, effects of carbs, carb counting and developing a meal plan. Label reading. Plate Method. Physical Activity : Introducti on to its importance . Effects of regular physical activity on blood sugars. Chronic Complicati ons: Introducti on to long-term effects, Importance of ABCs (A1c, Blood pressure and Cholestero l control) in limiting cardiovasc ular risk. Other strategies for maintainin heart health. [id number] MD CLAUDE Bazan, [facility], [address] [place] [address] 04/28/2016 08:47:08 04/28/2016 10:07:36 Adult health examination 589348541 Z00.00 see Risk Assessment and Lifestyle Change Counseling section above Counseling 718959276 Z71 .9 Mixed hyperlipidemia 267 909952 E78.2 continue to work on diet and exercise as discussed Uncontroll ed type 2 diabetes mellitus 325651734 E11.65 Impotence of organic origin 493320172 N52.9 Family his tory of malignant neoplasm of thyroid 042926227 Z80.8 [id number] Erna Villalpando, OD [facility], [facility] [address] [place] [address] 06/03/2016 14:09:37 06/03/2016 16:01:10 Type 2 diabetes mellitus without complication 877490149 E11.9 uncontroll ed, no diabetic retinopath y OU, pt ed, encouraged good BS control to maintain good eye health and vision. RTC 1 yr CEE or sooner with vision changes. [id number] MD CLAUDE Bazan, [facility], [address] [place] [address] 08/04/2016 08:48:09 08/04/2016 09:18:49 Benign essential hypertension 0933656 I10 Mixed hyperlipidemia 267 463574 E78.2 Uncontroll ed type 2 diabetes mellitus 048648626 E11.65 Disorder o f nervous system due to type 2 diabetes mellitus 071595727 E11.40 Overweight 664750780 E66 .3 [id number] Sarika Rose RN, BSN, [facility] DM [facility] , [facility] [address] [place] [address] 09/01/2016 15:35:52 09/02/2016 09:08:30 Uncontrolled type 2 diabetes mellitus 266046816 E11.65 Met with Wilberto today for follow up of his diabetes education, kindly referred by Dr. Sweet. Wilberto has had diabetes for about 10 years now. Most recently, his A1C was 10.2% in [facility]. We reviewed how he has had an A1C above 10% since June of 2015. He is currently being treated with Metformin 1,000 mg BID, Glipizide 10 mg BID and Victoza 1.8 mg QD. He admits he ran out of Victoza for a week and has not been taking it. He was encouraged to re-start this medication as soon as he can. He admits he has not been checking his blood sugar. Today, during this appointmen t, his POC at 4 pm was 324 mg/dl and it was 3.5 hours after eating lunch (spagetti) . He was encouraged to start testing his blood sugar 3x/day, fasting, before supper and 2 hours after supper. He does not want to check during work hours. He was also encouraged to eat very small amount of carbohydra sarina with his meals if he wants to see quicker results. He should try to eliminate his carbs to 45 or less grams with meals and 15 or less grams with snacks. If he wants to see quicker results, he may want to eliminate carbohydra sarina from this diet. He was encouraged to bring his meter back in 1 month and if there is no improvemen t, we will need to consider starting him on insulin.Tata gomez verbalized understand ing and agreeing with plan. Reviewed the following: Disease Process : Goals of Treatment. Natural progressio n of diabetes Monitoring : Appropriat e times to test blood sugar and target blood sugars. Nutrition : Identifica tion of high carb foods, effects of carbs, carb counting and developing a meal plan. Label reading. Plate Method. Physical Activity : Introducti on to its importance . Effects of regular physical activity on blood sugars. Chronic Complicati ons: Introducti on to long-term effects, Importance of ABCs (A1c, Blood pressure and Cholestero l control) in limiting cardiovasc ular risk. Other strategies for [facility] heart health. [id number] John Luna MD FP, [facility], [address] [place] [address] 09/19/2016 13:00:28 09/19/2016 15:23:49 Impacted cerumen 36572255 H61.23 Otalgia 10236636 H92.03 likley due to cerumen [id number] Mani Padron MD , [facility], [address] [place] [address] 11/23/2016 11:29:28 11/24/2016 13:05:04 Acute bronchitis 62411404 J20.9 OOW for 2 days , luke powell, rest, liquids [id number] Wallace Sweet MD , [facility], [address] [place] [address] 11/24/2016 08:39:51 11/24/2016 09:46:06 Benign essential hypertension 9988470 I10 Mixed hyperlipidemia 267 154424 E78.2 Uncontroll ed type 2 diabetes mellitus 066338976 E11.65 [id number] Sarika Rose RN, BSN, [facility] DM [facility] , [facility] [address] [place] [address] 01/05/2017 14:22:22 01/11/2017 14:06:39 Uncontrolled type 2 diabetes mellitus 203643682 E11.65 Met with Wilberto today for follow up of his diabetes education, kindly referred by Dr. Sweet. Wilberto has had diabetes for about 10 years now. Most recently, his A1C was 10.3% in October and he continues to remain elevated after having an elevated A1C since June of 2015 that is 10.4%. He has actually had an elevated A1C for many years now and reviewed his trend with him so he is aware of the damage he could possibly be doing to his internal organs and blood vessels. Reviewed his other blood work and it appears he is doing well despite elevated blood sugars. He appears to be having improved blood sugars on his meter download, with an average monthly blood sugar of 164 mg/dl. He is currently taking the following medication s to treat his diabetes:M etformin 1,000 mg BID, Glipizide 10 mg BID and Victoza 1.8 mg QD. He continues to eat carbohydra sarina with most of his meals and we discussed how he might see a quick improvemen t with blood sugars if he reduced his carbohydra sarina more. He reports he is flying to [place] in 2 weeks and is nervous about all the rich high carbohydra te foods he will be eating. We reviewed how to inject insulin incase he might need it. Will discuss with Dr. Sweet about prescribin g it for Wilberto, in case he needs it while he is away. A short acting scale might be helpful if he is eating a large amount at the wedding or while visiting his 's family. Will communicat e this with Wilberto after discussing with Dr. Sweet.Naldo lopez verbalized understand ing and agreeing with plan. Reviewed the following: Monitoring : Appropriat e times to test blood sugar and target blood sugars. Nutrition : Identifica tion of high carb foods, effects of carbs, carb counting and developing a meal plan. Label reading. Plate Method. Physical Activity : Introducti on to its importance . Effects of regular physical activity on blood sugars. Hypoglycem ic protocols: Test blood sugar. If under 70mg/dl treat with 15grams of fast-actin g carbohydra sarina. Retest in 15 minutes if not over 70mg/dl, repeat. Reviewed how to use an insulin pen and how to prime and inject a dose of 10 units. Will discuss in further detail the type of insulin once we decide what to prescribe him. [id number] Wallace Sweet MD , [facility], [address] [place] [address] 03/08/2017 16:58:56 03/08/2017 17:43:47 Benign essential hypertension 2627640 I10 Mixed hyperlipidemia 267 732008 E78.2 Uncontroll ed type 2 diabetes mellitus 073826821 E11.65 [id number] Sarika Rose RN, BSN, [facility] DM Education , [facility] [address] [place] [address] 03/16/2017 15:32:36 03/18/2017 08:48:45 Uncontrolled type 2 diabetes mellitus 113373522 E11.65 Met with Wilberto today for follow up of his diabetes education, kindly referred by Dr. Sweet. Wilberto has had diabetes for about 10 years now. His last A1C was 10.3% in October and it has come down to 8.6% in February. He has really made changes with his diet to make this happen by watching his carbohydra te intake more carefully. He did not bring his meter and admits he recently moved, therefore, he has not been in the habit of testing often. He reports his trip to [place] went well during the summer when he was nervous he would eat too much food while he was away. He was at a wedding. He reports he tends to gain 15 lbs when he is in [place] and this was the first trip he did not gain any weight because he continued to be careful while he was away. He continues to takeMetfor min 1,000 mg BID, Glipizide 10 mg BID and Victoza 1.8 mg QD. He was encouraged to bring his meter to the future appointmen and start testing again. He was encouraged to keep up the great work with eating healthy and staying active because he continues to do very well with managing his diabetes. Our plan is for him to return in May when he is due for another A1C and see how he does and then have him follow up again after the Holidays to keep his A1C within target. He verbalized understand ing and agreeing with plan. Reviewed the following: Monitoring : Appropriat e times to test blood sugar and target blood sugars. Nutrition : Identifica tion of high carb foods, effects of carbs, carb counting and developing a meal plan. Label reading. Plate Method. Physical Activity : Introducti on to its importance . Effects of regular physical activity on blood sugars. [id number] Wallace Sweet MD , [facility], [address] [place] [address] 07/13/2017 14:38:02 07/14/2017 08:06:17 Benign essential hypertension 4679662 I10 Mixed hyperlipidemia 267 882840 E78.2 Uncontroll ed type 2 diabetes mellitus 239094978 E11.65 [id number] JUANIS Farfan , [facility], [address] [place] [address] 07/19/2017 09:59:16 07/19/2017 11:23:32 Screening for malignant neoplasm of colon 223225970 Z12.11 Referral for a DIRECT booked colonoscop y. This patient is a healthy ASA Class 1 or 2 patient (only mild systemic disease), or a STABLE, well controlled insulin dependent diabetic. They do not have serious cardiac disease ie MO/angiopl asty within 1 year, symptomati c CHF; renal failure with CKD 4 or 5; take Coumadin, Plavix, Aggrenox, etc. Acholic stool 62803752 R 19.5 Abnormal colored elif, labs & US ordered as written below, further treatment pending results. Impacted cerumen 3780173 6 H61.23 Both ears successful ly cleared of cerumen. Advised to use Debrox gtts. to keep ears patent. [id number] Lauren Khan NP , [facility], [address] [place] [address] 09/27/2017 11:53:22 09/28/2017 09:35:28 Acute bronchitis 22531171 J20.9 Reassured. Lungs completely clear. Enc force fluids, steam inhalation prn, adequate rest. OK to continue otc cold/cough meds prn for symptom management . F/u here if not gradually improving, symptoms worsening, especially if develops fevers or increased SOB. Codeine cough syrup prn primarily for night time use. Warned can cause drowsiness . [id number] Tata Silva PA-C , [facility], [address] [place] [address] 10/01/2017 14:36:18 10/01/2017 16:03:25 Acute low back pain 115299427 M54.5 09/25 came out with cold/bronc hitis sx, this past Wednesday (the ) started having back pain. especially with getting up or coughing. No hx of back problems. Pain is non radiating down legs, no bowel or bladder complaints . No other red flags for low back pain.PE tender to palpation right paraspinou s muscle pain ROM is full except for flexion of L spine and straighten ing up .Medicatio ns as directed. pillows under or between legs. alternate hot/cold packs. follow up 4-5 days. [id number] John Luna MD , [facility], [address] [place] [address] 11/13/2017 09:44:36 11/13/2017 11:25:52 Dysfunction of eustachian tube 54194174 H69.91 supportive care f/u if not improved in 2-3 weks [id number] Lauren Khan NP , [facility], [address] [place] [address] 01/07/2018 14:46:25 01/10/2018 08:54:41 Hearing loss 04300217 H91.91 Impacted cerumen 2712812 6 H61.23 Nurse in as above. TM's appeared wnl on exam after the irrigation . Unclear if pt felt better. States needs to use the telephone to tell if still having this problem with his hearing in the right ear. Will give this a few days. If still c/o decreased hearing in that ear, he will f/u by phone next week. Consider ENT/audiol ogy referral. [id number] Wallace Sweet MD , [facility], [address] [place] [address] 04/19/2018 13:34:53 04/19/2018 14:18:10 Benign essential hypertension 0168009 I10 Mixed hyperlipidemia 267 202176 E78.2 Uncontroll ed type 2 diabetes mellitus 846635647 E11.65 Hearing loss 66485455 H9 1.91 Anxiety 26424354 F41.9 [id number] Sarika Rose RN, BSN, [facility] DM Education , [facility] [address] [place] [address] 06/27/2018 08:42:53 07/04/2018 09:48:45 Uncontrolled type 2 diabetes mellitus 903879685 E11.65 Met with Wilberto clark for follow up of his diabetes education, kindly referred by Dr. Sweet.-He has had diabetes for about 10 years now.-His last A1C was 11.9% in April and it is up from 10.3% in October.-He admits he has made changes to his diet in the last 3 weeks since he last saw Dr. Sweet and found out his A1C has gone up.-He continues to treat his diabetes with: Metformin 1,000 mg BID, Glipizide 10 mg BID and Victoza 1.8 mg QD.-He did not bring his meter today, therefore, we were not able to evaluate his blood sugars.-He admits he has not been testing recently.- His POC in the office was 234 mg/dl. Recommenda tions:-Con shandraue to work on diet and exercise. -Continue current medication s: Metformin 1,000 mg BID, Glipizide 10 mg BID and Victoza 1.8 mg QD.-He may need to think about taking insulin since his A1C is greater than 10% and has been above (8% for quite some time). -We started the discussion about insulin this time, so he he is prepared for it for next time. He admits he wants to avoid insulin.-B ring meter to future appts for us to evaluate. -Returning in a month to FU for an appt. He thinks coming more often will help him stay on track. Reviewed the following: Monitoring : Appropriat e times to test blood sugar and target blood sugars. Nutrition : Identifica tion of high carb foods, effects of carbs, carb counting and developing a meal plan. Label reading. Plate Method. Physical Activity : Introducti on to its importance . Effects of regular physical activity on blood sugars. [id number] Sarika Rose RN, BSN, [facility] DM Education , [facility] [address] [place] [address] 08/02/2018 07:50:46 08/02/2018 11:32:49 Uncontrolled type 2 diabetes mellitus 552612096 E11.65 Met with Wilberto today for follow up of his diabetes education, kindly referred by Dr. Sweet.-He has had diabetes for about 10 years now.-His last A1C was 11.9% in April and it is up from 10.3% in October.-He admits he has made changes to his diet in the last 3 weeks since he last saw Dr. Sweet and found out his A1C has gone up.-He is now limiting his carbohydra sarina, avoiding snacks after dinner and trying to stay away from pastries.- He continues to treat his diabetes with: Metformin 1,000 mg BID, Glipizide 10 mg BID and Victoza 1.8 mg QD.-He is interested in switching from Victoza to once a week medication , like Trulicity. Will discuss with Dr. Sweet.-He brought a meter he has not been using, therefore, there is no data on it. He reports his fasting blood sugars are coming down, however, we do not have blood sugars to review. He tested his blood sugar this morning and it was 117 mg/dl.-He is exercising regularly, almost daily by running on the treadmill, doing situps and weight lifting. Recommenda tions:-Con tinue current medication s: Metformin 1,000 mg BID, Glipizide 10 mg BID and Victoza 1.8 mg QD.-Will discuss with Dr. Sweet about switching your Victoza to Trulicity. -You may need to think about taking insulin if your next A1C is still above 9 or 10%-Contin ue to bring meter to future appts for us to evaluate.- Continue to test your morning blood sugars on the days you are working and on your days off, try to mix it up a bit and testing 2 hours after meals randomly.- Continue to watch carbohydra sarina with meals, limit it and have protein and vegetables with all meals.-Ple ase call with any questions or concerns. Reviewed the following: Monitoring : Appropriat e times to test blood sugar and target blood sugars. Physical Activity : Introducti on to its importance . Effects of regular physical activity on blood sugars. Chronic Complicati ons: Introducti on to long-term effects, Importance of ABCs (A1c, Blood pressure and Cholestero l control) in limiting cardiovasc ular risk. Other strategies for maintainin heart health. [id number] Erna Villalpando, OD Eye [facility], [facility] [address] [place] [address] 08/02/2018 09:03:25 08/02/2018 15:56:51 Type 2 diabetes mellitus without complication 880896680 E11.9 uncontroll ed, no diabetic retinopath y OU, pt ed, encouraged good BS control to maintain good eye health and vision. RTC 1 yr CEE or sooner with vision changes. [id number] POORNIMA Willis , [facility], [address] [place] [address] 10/05/2018 13:03:14 10/06/2018 08:27:14 Uncontrolled type 2 diabetes mellitus 439137285 E11.65 Pt to do labs, f/u w/ PCP in the next month Active or passive immunization 667911333 Z23 Pt declined TD for today despite knowing the risk of disease and Mixed hyperlipidemia 267 471290 E78.2 Pt to have labs done and schedule w/ PCP within the next month- discussed goal is LDL < 100 Impacted cerumen 5620849 6 H61.23 Bilateral impacted cerumen- ear lavage done Essential hypertension 73035371 I10 Pt to have labs done and schedule w/ PCP within the next month Neuropathy due to diabetes mellitus 421322821 E11.40 pt states- chronic- reviewed improved control of BS's will decrease symptoms. [id number] Wallace Sweet MD FP, [facility], [address] [place] [address] 03/30/2019 08:30:29 03/30/2019 09:12:31 Mixed hyperlipidemia 574280116 E78.2 Active or passive immunization 322686501 Z23 Benign ess ential hypertension 2268808 I10 Neuropathy due to diabetes mellitus [id number] E11.40 Uncontroll ed type 2 diabetes mellitus [id number] E11.65 [id number] Sarika Rose RN, BSN, [facility] DM Education , [address] [address] 05/04/2019 08:44:36 05/05/2019 12:08:07 Uncontrolled type 2 diabetes mellitus [id number] E11.65 Met with Wilberto today for follow up of his diabetes education, kindly referred by Dr. Sweet.-He has had diabetes for about 10 years now.- A1C is 10.5% in Mar, down from 11.9% in Apr 2018- Did not bring meter today, as he has not been consistent ly testing his blood sugars at home.-He continues to treat his diabetes with: Metformin 1,000 mg BID, Glipizide 10 mg BID, Trulicity 0.75mg weekly.- Reports not having any SE's from the Trulicity and is interested in increasing dose to 1.5mg weekly. RX sent to Dr. Sweet's office- Not exercising as regularly as he used to.- Discussed that he may need to start insulin if increased dose of Trulicity does not bring his A1C down.- Interested in hypnotism for losing weight. Reviewed what we knew about the [facility] program. - Goals: Getting back into exercise routine, checking blood sugar once daily, watching carb intake - Introduced the idea of starting insulin if the increased dose of Trulicity is not effective in bringing down A1C Reviewed the following: Monitoring : Appropriat e times to test blood sugar and target blood sugars. Physical Activity : Introducti on to its importance . Effects of regular physical activity on blood sugars. Chronic Complicati ons: Introducti on to long-term effects, Importance of ABCs (A1c, Blood pressure and Cholestero l control) in limiting cardiovasc ular risk. Other strategies for [facility] heart health. [id number] Gloria Leonard MD , [facility], [address] [place] [address] 05/23/2019 10:04:58 05/23/2019 15:19:11 Active or passive immunization [id number] Z23 Asymmetric al sensorineural hearing loss [id number] H90.5 pt will call for appt- printed the referral from Dr Sweet earlier this year so he can callhe never followed updoes not feel sx have changed Impacted c erumen of bilateral ears [id number] H61.23 irrigation todaycompl etely cleared after several attempts [id number] John Luna MD , [facility], [address] [place] [address] 07/06/2019 08:16:55 07/06/2019 13:42:42 Acute upper respiratory infection [id number] J06.9 Educated patient that URI is a viral illness of the upper airways. It is not bacterial and does not benefit from antibiotic s. Average duration of URI is 7-10 days but in a recent trial, treatment at 7-10 days of illness with antibiotic s, intranasal steroids, or placebo did not alter natural history at 3 weeks. Recommende d symptomati c treatments including NSAIDS, semi-uprig ht sleep position, antihistam guy at HS, limited course of nasal sympathomi metics and/or cough syrups, and nasal saline rinses with soft squeeze bottle or Neti pot. Return for fevers > 101 for 3 days, worsening sinus pain, or failure to resolve in 2-4 weeks. [id number] Sarika Rose RN, BSN, [facility] DM Education , [address] [address] 07/12/2019 13:14:32 07/17/2019 11:36:40 Uncontrolled type 2 diabetes mellitus [id number] E11.65 Met with Wilberto and his today for diabetes education, kindly referred by Dr. Sweet.-He has had diabetes for about 10 years now.- A1C is 11.2% in June and his previous A1C was 10.5% in Mar.-He was sick with the Flu last week.-He did not bring his meter, however, he reports he is checking in the morning and the evening. -Current medication s:Metformi n 1,000 mg twice a day, tolerating it well. Glipizide 10 mg, 1 tab twice a day. Trulicity 1.5 mg once a week (he may get bumps on his stomach where he injects). -He is very interested in the sensor, will send RX to Pharmacy for Freestyle Pushpa -POC in the office at 2 pm was 223, last ate at 12:45 pm stopped and got chicken salad (with chamberlain and celery) -No meter brought in today.-He believes he needs to stop snacking and his feels that he has been putting much efford into his diet recently.- Not very active, since he was sick; close to holidays and eating more than normal. -Discussed the importance of insulin for Wilberto today since his A1C has been elevated up and down from 8-14% since June of 2015. Insulin has been brought up at each visit and he keeps asking for another month to change his lifestyles with diet and exercise. He should not wait any longer because he is likely glucotoxic . He denies symptoms fo polyuria, polydipsia and polyphagia .-Both he and his are saying no to insulin today and want him to take another month to work on lifestyle changes since his A1C is elevated due to the Holidays and recent illness. Explained to them that if his A1C has been elevated for several years, then lifestyle changes will likely not get it down in a month. He is no making much insulin on his own at this point.-Edgar t Dr. Sweet a message to notify him of this incase pt needs to hear this from his own physician. Reviewed the following: Reviewed how diabetes is progressiv e and medication s global climate change researcher time (which includes insulin). Monitoring : Appropriat e times to test blood sugar and target blood sugars. Physical Activity : Introducti on to its importance . Effects of regular physical activity on blood sugars. Chronic Complicati ons: Introducti on to long-term effects, Importance of ABCs (A1c, Blood pressure and Cholestero l control) in limiting cardiovasc ular risk. Other strategies for [facility]. Reviewed the benefits of insulin and how he will need a long acting insulin before we start him on meal time insulin. [id number] Sarika Rose, RN, BSN, [facility] DM Education , [facility] [address] [place] [address] 08/23/2019 12:54:55 08/23/2019 15:28:53 Uncontrolled type 2 diabetes mellitus [id number] E11.65 Met with Wilberto and his today for diabetes education, kindly referred by Dr. Sweet.-He has had diabetes for about 10 years now.-Just arrived last week from [place]. No fever, no cough. -Last A1C was 11.2% in June, he is due in September. -Current medication s: Metformin 1,000 mg twice a day. Not missing doses. Glipizide 10 mg, 1 tab twice a day. Not missing doses. Trulicity 1.5 mg once a week. His stomach lumps are not too bad. -No meter, however, he has record of his blood glucose. -Work schedule: 6:20 am and he leaves at 7:15 pm at night (he works 5 days, next week it will be 2 days). 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 He is working 13 hours per shift. He is not able to check glucose on long shift days. -He has been jogging on his off days. He runs 2 days one week and 5 days the next week. -He injured his left side near his ribs, 2 days ago, he was bowling and it was really slippery where he released his bowl and he took a fall and landed on alley way (not the gutter) and injured himself. -POC in the office was 186 mg/dl, he ate an hour ago- peanut butter sandwich (2 slices of bread), peanut butter and butter. -He is looking at food labels even though he is not counting carbs with meals. -His is trying to serve lower carbohydra sarina. He reports he is eating a lot less at night when he use to be out of control in the evenings the last time we saw each other.-His blood glucose logs are showing his blood glucose are close to 140-180 mg/dl, however, occasional ly he is down to 118, 128 and 126 mg/dl Reviewed the following: Reviewed how diabetes is progressiv e and medication s global climate change researcher time (which includes insulin). Monitoring : Appropriat e times to test blood sugar and target blood sugars.Chr onic Complicati ons: Introducti on to long-term effects, Importance of ABCs (A1c, Blood pressure and Cholestero l control) in limiting cardiovasc ular risk. Other strategies for [facility] heart health. [id number] ALAN Marcus, [facility], [address] [place] [address] 08/24/2019 10:34:06 08/24/2019 17:49:12 Rib pain [id number] R07.81 s/p fall. Advised compressio n brace and ibuprofen. RTC for worsening pain. [id number] Sarika Rose RN, BSN, [facility] DM Education , [address] [address] 10/19/2019 09:06:19 10/20/2019 09:04:53 Uncontrolled type 2 diabetes mellitus [id number] E11.65 -Virtual Appt via [employer] due to COVID-19 pandemic.- Kindly referred by Dr. Sweet for diabetes education. -He has had diabetes for about 10 years now.-Last A1C was 11.2% in June. He is going to call the lab to schedule a lab appt for the future. -Current medication s: Metformin 1,000 mg twice a day. Glipizide 10 mg, 1 tab twice a day. Trulicity 1.5 mg once a week. -Reviewed his blood sugars over the phone.-He is checking his blood sugar 1-2x/day. His fasting blood sugars are ranging between 145-189 mg/dl. They are about the same as his previous visit in August.-He is also checking occasional ly before dinner and they are ranging between 156-182 mg/dl.-He reports he is jogging 2-3x/week for 25 minutes and he is doing situps 2x/week.-Ashley lei also admits that he is not eating nearly as many sweets as he has in the past.-We discussed long acting insulin and how he would benefit from it since his A1C has been above 7% since 2014. He is more open to trying it this time. Will send a pt case to Dr. Sweet about prescribin g it. Reviewed the following: Chronic Complicati ons: Introducti on to long-term effects, Importance of ABCs (A1c, Blood pressure and Cholestero l control) in limiting cardiovasc ular risk. Other strategies for maintainin g heart health. Long acting insulin such as Lantus or Basaglar and the benefits for his blood sugars. [id number] Sarika Rose RN, BSN, [facility] DM Education , [address] [address] 11/30/2019 10:15:19 12/01/2019 09:18:58 Uncontrolled type 2 diabetes mellitus [id number] E11.65 -Virtual Appt via phone due to COVID-19 pandemic. He was on about to go running. Appt was short over the phone.-Gerardo olson referred by Dr. Sweet for diabetes education. -He has had diabetes for about 10 years now.-Last A1C was 11.2% in June. He was encouraged to get an updated A1C. -Current medication s: Metformin 1,000 mg twice a day. Glipizide 10 mg, 1 tab twice a day. Trulicity 1.5 mg once a week. Basaglar 8 units once a day.-Revie wed his blood sugars over the phone.-He is checking in the morning and his fasting blood sugars are: 155-215 mg/dl.-He was encouraged to check 2 hours after large meals occasional ly.-He reports he is jogging 2-3x/week for 25 minutes and he is doing situps 2x/week.-H makayla also admits that he is not eating nearly as many sweets as he has in the past and this has improved.- Will touch base again in a month to discuss his blood sugars after we increased his Basaglar to 10 units. He is not injecting correctly since he does not twist the pen needle onto the pen, therefore, he plans to start twisting it on. He was only pushing it down. Reviewed the following: Reviewed appropriat e technique with the placing the pen needles onto the insulin pen. Patient agreed to this visit via phone due to the COVID -19 pandemic. Patient understand s this is a scheduled visit and the usual procedures with regard to billing and confidenti ality apply. Patient was notified that the provider location is not at [facility] Patient location: home During the visit the patient? s medical history and medical record were reviewed. The patient was notified to call our office for worsening or urgent symptoms. [id number] Wallace Sweet MD , [facility], [address] [place] [address] 03/22/2020 10:46:30 03/25/2020 09:35:39 Mixed hyperlipidemia [id number] E78.2 Essential hypertension 09780889 I10 Uncontroll ed type 2 diabetes mellitus [id number] E11.65 [id number] ALAN Marcus, [facility], [address] [place] [address] 06/13/2020 10:08:22 06/17/2020 10:27:30 Muscle pain 13234120 M79.10 advised ample rest and hydration and gentle movement. RTC for worsening/ persisting sx. [id number] ALAN Marcus, [facility], [address] [place] [address] 06/25/2020 14:01:39 06/26/2020 13:07:05 COVID-19 [id number] U07.1 Right sided headache lingering. No red flags. Advised ample rest, hydration , OTC migrelief. F/U in 1 week or sooner for worsening sx. [id number] ALAN Marcus, [facility], [address] [place] [address] 07/02/2020 11:31:22 07/03/2020 14:29:04 SARS-CoV-2 [id number] U07.1 MEDINA has resolved. Asymptomat ic. Back at work. RTC for concerning sx. [id number] Sarika Rose RN, BSN, [facility] DM Education , [address] [place] [address] 08/22/2020 09:04:35 08/22/2020 10:47:49 Uncontrolled type 2 diabetes mellitus [id number] E11.65 -Virtual Appt via phone due to COVID-19 pandemic. He could not hear the provider when we tried [place] [facility]. -Kindly referred by Dr. Sweet for diabetes education. -He has had diabetes for about 10 years now. -Last A1C was 9.1% in January, it is down from 11.2% in June. He was encouraged to get an updated A1C. -Current medication s: Metformin 1,000 mg twice a day. Glipizide 10 mg, 1 tab twice a day. Basaglar 16 units once a day. -He stopped taking the Trulicity in February after having side affects. He took it for 3 weeks only and noticed an improvemen t in his blood sugars, however, now that he is no longer taking it, he notices his blood sugars are higher again. -He felt nausea for an hour after taking the Trulicity. -He admits he does not have blood sugars with him. He admits he has not been checking often. He reports they are running between 200-210 mg/dl. -Today, fasting was 180 mg/dl. -He last checked it about 3 days ago and it was in the 200s. -He plans to start taking his glucose 2x/day, fasting and if he takes it at night (7:30 pm when he gets home from work and he last ate at 1:00 pm and at 5 pm, he will drink a V8). -He is exercising regularly on his off days. 2-3x/week for 30 mins on treadmill and the rest is push ups and sit ups and he does them fast, along with curls. -He is doing a lot better with eating sweets. Sometimes he breaks down with staying away from chips and sweets. This week, he had a small piece of pie. -When he is working, he is walking all day. On the top of 2 toes, he gets a burning sensation. It never leaves. He questions if his is neuropathy and we discussed his risks of having neuropathy are higher since he has had diabetes for 10 years and it has not been well controlled . Explained that the symptoms could improve if he were to get his diabetes under better control, by aiming for an A1C of 7% or keeping his blood sugars below 180 mg/dl. -He watched on Youtube that nursing home use of Metformin causes B12 deficiency , he started taking B12 to prevent this and questions if he should continue to take it. Will discuss with Dr. Collazo to find out if he needs any testing and what he recommends . -Will also send a pt case to Dr. Sweet about re-startin g the Trulicity since Wilberto wants to give it a try again. -No other changes made at this time. -Plan: To FU in person at our next visit to make sure he is injecting the Basaglar correctly since he is not sure he was doing it correctly when he started it. [id number] Wallace Sweet MD , [facility], [address] [place] [address] 12/30/2020 10:35:47 12/30/2020 11:37:27 Mixed hyperlipidemia [id number] E78.2 Essential hypertension 15220580 I10 Neuropathy due to diabetes mellitus [id number] E11.40 [id number] Sarika Rose RN, BSN, [facility] DM Education , [facility] [address] [place] [address] 01/28/2021 08:11:07 01/31/2021 15:37:06 Uncontrolled type 2 diabetes mellitus [id number] E11.65 -Virtual Appt via [employer] due to COVID-19 pandemic. -Kindly referred by Dr. Sweet for diabetes education. -He has had diabetes for about 10 years now. -Last A1C was 10.2% in December, it had been 9.1% in January. Have brought it to his attention that his A1C has been elevated since December 2006 (which places him at a high risk of complicati ons). -Current medication s:Basaglar 24 units once a day.Metfor min 1,000 mg twice a day.Trulic ity 1.5 mg once a week (He started the higher dose) -He admits he does not have blood sugars with him. He admits he has not been checking often.01/28 -This AM: 155 01/27- AM: 190-Report s it has been mostly in the 200s. Prior to increasing the Trulicity. -Admits he was not checking very often, however, he has started to check it again more and mainly checking in the morning. -He is increasing the dose of Basaglar every 2 units until recently. He had been increasing it by 2 units every time.-He has a house project around the house that is keeping him active.-He has maintainin g his diet -He is running 3x/week, he will run on his treadmill. This week, he has not been able to due to a house project. -Plan: To continue to titrate the dose of Basaglar based on fasting glucose if they are elevated, above 150 mg/dl. Start checking his glucose more often. Concerned about his buttermaker continuous churn affects of diabetes, as he has been elevated with high A1C for many years. He likely needs short acting insulin with meals. Will discuss with Dr. Sweet about starting Humalog or Novolog. Did not get a chance to discuss this with Wilberto today and will discuss this at our next visit. [id number] Wallace Sweet MD FP, [facility], [address] [place] [address] 04/03/2021 08:49:27 04/03/2021 09:15:23 Essential hypertension 46055277 I10 Mixed hyperlipidemia 267 013732 E78.2 Uncontroll ed type 2 diabetes mellitus [id number] E11.65 [id number] Sarika Rose RN, BSN, [facility] DM Education , [facility] [address] [place] [address] 04/08/2021 09:03:28 04/10/2021 12:59:38 Uncontrolled type 2 diabetes mellitus [id number] E11.65 -Virtual Appt via [employer] due to COVID-19 pandemic. -Kindly referred by Dr. Sweet for diabetes education. -He has had diabetes for about 10 years now. -Last A1C was 10.6% in March, it had been 10.2% in December. -Current medication s:Basaglar 24 units once a day, at night time.Metfo rmin 1,000 mg twice a day.Trulic ity 1.5 mg once a week -He admits he has not been checking his glucose much recently, however, when he knew he had an appt, he checked a few times and all of his fasting blood sugars for the last 2-3 days were in the 200s.-Repo rts that when he starts to check his glucose, he often falls off the wagon and not sure why he struggles with checking it. -Reviewed titrating Basaglar by 2 units every week until fasting blood sugars are below 150 mg/dl.-Sen t a message to Dr. Sweet about increasing the dose of Trulicity to 3 mg once a week. -He has a cut on his left big toe, and it is less painful when he is not walking on it. He bought a toe guard from [employer]. At one point, he had to get custom made, from [employer] (about 10 years ago). As soon as the toe cut developed, he had to stop running, this has been going on for 2 weeks. He just stopped and he does not want to aggravate it more. -Plan: Ask Dr. Sweet about increasing the dose of Trulicity to 3.0 mg once week. Encouraged Wilberto increase his Basaglar by 2 units today and titrate the dose by 2 units every week until fasting glucose are below 150 mg/dl. Asked Dr. Sweet about getting another podiatry referral. Consider short acting insulin with meals to help bring down blood sugars. FU in 1 month. 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 refer to retina. 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 No DR OS. No CSME OU. Presbyopia [id number] H52. 4 ok to cont with OTC readers. [id number] Sarika Rose RN, BSN, [facility] DM Education , [facility] [address] [place] [address] 07/14/2021 09:09:17 07/15/2021 09:52:12 Uncontrolled type 2 diabetes mellitus [id number] E11.65 -Virtual Appt via over the phone due to COVID-19 pandemic. Pt. tried connecting to Enbridge, however, it would not connect (he has a very new phone with 5G). -Kindly referred by Dr. Sweet for diabetes education. -He has had diabetes for about 10 years now. -Last A1C was 10.6% in March, it had been 10.2% in December. -Current medication s:Metformi n 1,000 mg twice a day.Glipiz leslie 10 mg, 1 tab twice a day.Lantus 30 units once a day (stared in November 2020), not missing doses. -Reports he stopped the Trulicity 3 mg once a week due to having diarrhea and had a foul smell with his breath, after burping. Stopped it about 1 month ago from side effects. Admits he was embarrasse d at work from having to use the bathroom so frequently . He noticed the side effects occured about 2 weeks after taking the injection. -Reports he lost his glucometer . A couple of days ago, his glucose was 289 mg/dl and he was eating a slice of cake. He thinks his threw it out because she keeps the house so clean and does not recognize the meter. He reports he got a new glucometer . -Today his gluose was checked. Fastin mg/dl (ate last night).-No hypoglycem ia. -Reports, he has had trouble with ear wax in the past. Tried to call [facility] to have it removed, however, was told that [facility] is no longer doing this. About 3 weeks ago, he had ear wax that built up and causing pain. He did debrox in his ears and had his help him irrigate it. Encouraged he speak to Dr. Sweet about this in the future, due to risk of infection. -He has large calluses on both big toes. He wears a toe guard, it has bled in the past. Wants to see a document management specialist for it. There is a referral for a document management specialist from 04/03, encouraged he call to schedule an appt. -Asked about sensors, and discussed how he does not currently qualify for a sensor based on Medicare/[employer] edicaid strict guidelines with sensors. However, his insurance may not have the same strict guidelines and encouraged he call to find out. He is not on insulin more than once a day and he is not currently checking glucose regularly. However, he thinks if he had the ability to check his glucose a bit more quickly, he would change the way he was eating if his glucose was elevated. -Plan: Go to lab to get an updated A1C this month. Schedule an appt with the document management specialist . Call insurance to find out if they have strict guidelines for going on a sensor. Continue current medication . Please check glucose at least 4x/day, 1 week before appt so we have more informatio n to help determine if he is on the correct doses of medication . FU in 1 month for diabetes education. -Reviewed the following: Benefits of CGMs (sensors) and discussed requiremen ts to go on a sensor. [id number] Wilberto Ivan DPM Podiatry, [facility] [address] [place] [address] 08/05/2021 10:29:51 08/05/2021 11:30:28 Disorder of nervous system due to type 2 diabetes mellitus [id number] E11.49 Pronation of foot 157743 03 M21.6X9 [id number] Sarika Rose RN, BSN, [facility] DM Education , [facility] [address] [place] [address] 09/16/2021 10:02:55 09/19/2021 11:05:31 Uncontrolled type 2 diabetes mellitus [id number] E11.65 -Virtual Appt via [employer] today for diabetes education. -Kindly referred by Dr. Sweet for diabetes education. -He has had diabetes for about 10 years now. -Last A1C was 10.6% in March, it had been 10.2% in December. Encouraged to get an updated A1C. -Current medication s:Metformi n 1,000 mg twice a day.Glipiz leslie 10 mg, 1 tab twice a day.Lantus 30 units once a day (stared in November 2020), not missing doses. -Has blood sugars available to review today. In the last 2 visits, he has not had blood sugars available due to losing his glucometer .4/5- F: 1444/4- F: 121; BD: 1474/3- F: 147; BD: 1584/2- F: 156; BD: 1684/1- F: 119; BD: 1583/31- F: 169; BD: 1573/30- F: 180; BD: 1643/29- F: 189; BD: 168 -No hypoglycem ia reported.- Overall, his blood sugars appear to be improving. -Encourage d to increase his Lantus dose by 3 units to 33 units based on fasting glucose being above 130 mg/dl most of the time. He has only had 2 blood sugars in the last 8 days that were in target range. -He continues to use a toe guard for his large calluses. Saw a document management specialist and was told it was due to his foot being flat. -Reviewed how he might be eligible to use a sensor since insurance companies have decreased the requiremen ts for sensor therapy and pts can be on insulin once a day. Pt. is currently on insulin once a day and is checking his glucose 2x/day. His A1C is quite elevated and has been this way for a few years, therefore, he would really benefit to see how he responds to certain foods, and he does struggle with checking his glucose regularly. -Plan: Go to lab to get an updated A1C. Encouraged to increase his dose of Lantus to 33 units once a day. Continue to check glucose 2x/day. Sent a RX for the CGM (sensor) since he might be eligible for one and would really benefit from one. No other changes made at this time. -Reviewed the following: Benefits of CGMs (sensors). Importance of getting an updated A1C.How to titrate his dose of Lantus by 3 units every week until fasting glucose are below 130 mg/dl. [id number] , [facility], [address] [place] [address] 12/01/2021 10:39:30 12/01/2021 11:12:28 Adult health examination [id number] Z00.00 see Risk Assessment and Lifestyle Change Counseling section above Counseling 427774297 Z71 .9 including cardivascu lar risk reduction counseling Depression screening 171 234082 Z13.31 depression screening tool administer ed, entered into emr, scored and discussed, time greater than 7.5 minutes Screening for alcohol abuse 271578318 Z13.39 Essential hypertension 97171139 I10 Mixed hyperlipidemia 267 384725 E78.2 Active or passive immunization 422284711 Z23 Uncontroll ed type 2 diabetes mellitus 437534036 E11.65 Impacted c erumen of bilateral ears [id number] 021807 H61.23 [id number] Sarika Rose, RN, BSN, [facility] DM Education , [address] [address] 12/24/2021 09:05:34 01/05/2022 16:28:55 Uncontrolled type 2 diabetes mellitus [id number] E11.65 -Virtual Appt via over [employer] (acquired by [employer]) for diabetes education. -Kindly referred by Dr. Sweet. -He has had diabetes for about 10 years now. -Last A1C was 12.0% in November, it had been 10.0% in July. -Current medication s:Lantus 38 units, at bedtime.Me tformin 1,000, twice a dayGlipizi de 10 mg, twice a day. -He stopped taking Trulicity, he was burping a disgusting burp and he had diarrhea. -Has blood sugars available to review today.-[place] d them off over the phone:12/24 - F: 1487/12- F: 128; BD: 152/11- F: 151; BD: 162/10- F: 168; BD: 133/- F: 171; BD: 221/8- F: 201; BD: 1916/- F: 187; BD: 168/6- F: 188; BD: 158/- F: 165; BD: 151 -No hypoglycem ia reported. -He does not eat after 1 pm. He gets home by 7:30 pm and will have dinner. He will have tonic water on his 5:30 pm break. -He does have some numbness and tingling, saw a document management specialist . He gets calluses on his big toe. He has flat feet and this causes the calluses. He puts a toe guard on them when walking.-Makayla garcia exam was a year ago. He went to [facility] eye doctor. He was told that he might have a retinal detachment however, he saw a specialist and they did find any problems. -He can tell when his body does not feeling right, therefore, he knows that he is going hypoglycem ic. -Have sent RX for Freestyle Puspha in the past, along with the Dexcom sensor, however, pt has not received either sensor. Pt. would make a great candidate for the sensor since his diabetes is so poorly controlled and he is taking insulin at least once a day. -PLAN: Called Pharmacy and they said that Dexcom is not covered at [employer], however, it is worth calling insurance to find out if it is covered with a DME and how much is the co-pay. The Freestyle Pushpa sensor is covered with [employer], however the co-pay is $100 per month. Pt.'s blood sugars are improved since he is watching his diet, however, his A1C was 12% in November and has been above 9-10% for years therefore, he is really in need of short acting insulin to avoid nursing home complicati ons. Sent a message to Dr. Sweet about starting a small dose of Humalog or Novolog 5 units with each meal. Pt. does not currently have nursing home complicati ons. Reviewed how insulin puts him at risk of hypoglycem ia and we could stop the Glyburide from his other medication s once he is on insulin several times a day. Otherwise, his current regimen is not keep him well controlled with insulin only once a day. FU in 1 month to review blood sugars again. Addendum: Pt. notified us that he called insurance and he was told that the Freestyle Pushpa 2 sensor is covered and the preferred DME is [facility]. 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 mild NPDR OU, trace ME OS. new finding. PED resolved OS. refer to retina in 1-2 weeks. [id number] Sarika Rose RN, BSN, [facility] DM Education , [address] [address] 01/21/2022 09:03:01 01/21/2022 12:26:35 Uncontrolled type 2 diabetes mellitus [id number] E11.65 -Virtual Appt via over Enbridge today for diabetes education. -Kindly referred by Dr. Sweet. -He has had diabetes for about 10 years now. -Last A1C was 12.0% in November, it had been 10.0% in July. Due in February for an updated A1C. -Current medication s:Lantus 38 units, at bedtime.Hu malog 10 units with meals 3x/dayMetf ormin 1,000, twice a dayGlipizi de 10 mg, twice a day. -He stopped taking Trulicity, he was burping a disgusting burp and he had diarrhea. -Was able to connect his Freestyle Pushpa 2 sensor to [facility]'s [employer] account today. Download of sensor reveals:-A verage glucose is: 228 mg/dl.-Sca nning the sensor 3-11 times per day.-27% are in target range (70-180 mg/dl); 31% are above 180 mg/dl; 42% are above 250 mg/dl; 0% are below 70 and 50 mg/dl. -No hypoglycem ia reported. -Reviewed how to dose Humalog and how Humalog can be dosed based on carb ratio and correction factor. Encouraged he try this in the future. Wants to think about it before switching to this method of dosing his Humalog. Reviewed how he can take Humalog if having an ice cream snack, however, he may need a smaller dose and not a full dose to prevent insulin from stacking. -Now on the [employer]omply Pushpa 2 sensor and had trouble with inserting it the first time, then watched a video and did well the second time. Has only worn the sensor for less than 3 days. Have some data, however, not enough. -PLAN: Stop taking the Glipizide and increase Humalog by 2 units today with meals, may increase by 2 units every 4 days until blood sugars are coming down 2 hours after meals. Go to lab in February for an updated A1C. No change made to Lantus since his blood sugars were stable overnight and he seems to rise after 5-6 am, when he has eaten something. FU in February. [id number] Sarika Rose RN, BSN, [facility] DM Education , [address] [address] 02/18/2022 09:43:48 02/18/2022 10:30:23 Uncontrolled type 2 diabetes mellitus [id number] E11.65 -Virtual Appt via over the phone today for diabetes education. Pt. had trouble getting online today. -Kindly referred by Dr. Sweet. -He has had diabetes for about 10 years now. -Last A1C was 12.0% in November, it had been 10.0% in July. Due in February for an updated A1C. -Current medication s:Lantus 38 units, at bedtime (increase up to 42 units once a day).-Had trouble with 1 pen that leaked out of the side. He thinks he saw a crack.Teri log 18-20 units with meals 3x/day (yesterday increased to 20 units)Metf ormin 1,000, twice a day -He stopped taking Trulicity, he was burping a disgusting burp and he had diarrhea. -Connected to [employer] and able to review his download today: Download of sensor reveals:-A verage glucose is: 256 mg/dl for the last 30 days.-Scan jose the sensor 1-11 times per day.-9% are in target range (70-180 mg/dl); 36% are above 180 mg/dl; 55% are above 250 mg/dl; 0% are below 70 and 50 mg/dl. -No hypoglycem ia reported. -Reviewed with pt that his sensor is losing data often, due to pt. not scanning sensor every 8 hours. Encouraged that he work on this. -His diet his about the same, however, he has noticed he has had a pastry at night recently. -Hurt his back after lifting something very heavy and was not very active, therefore, his blood sugars have been higher. PLAN: Increase Lantus 42 units at bedtime and increase Humalog with meals to 20 units, 3x/day. Will discuss at next visit how he would benefit from a Carbohydra te ratio and Correction factor. Discussed it today and calculated out his dose based on TDD of 102 units per day. Will give pt the cheat sheet chart to help him dose his Humalog with meals so he can be more flexible with what he is eating. Also discussed how he might be a good candidate for the Inpen and will demonstrat e the pen and sydnie at our next appt in person. FU in 1 month. [id number] Sarika Rose RN, BSN, [facility] DM Education , [address] [address] 04/02/2022 10:05:34 04/02/2022 13:10:29 Uncontrolled type 2 diabetes mellitus [id number] E11.65 -Virtual Appt via over Enbridge today. -Kindly referred by Dr. Sweet. -He has had diabetes for about 10 years now. -Last A1C was 12.0% in November. Encouraged pt get an updated A1C. -Current medication s:Lantus 42 units, at bedtimeHum alog 22 units with meals 3x/day (sometimes he takes after a meal)Metfo rmin 1,000, twice a day TDI: 108 units-Calc ulated our a carb ratio and correction facotr based on TDI and these are the ratios:Cor rection Factor: 15 mg/dl.Carb ohydrate Ratio: 5 grams -Connected to [employer] and able to review his download today: Download of sensor reveals:-A verage glucose is: 248 mg/dl for less than a day. Pt. has not worn the sensor in a month. There is not very much data on the sensor, except for last night and this morning. -No hypoglycem ia reported. PLAN: Gave him a new Humalog Carb Ratio and Correction factor to help with dosing his Humalog before meals: Carb Ratio is 1 unit for 5 grams and Correction factor is 1 unit for 15 mg/dl if greater than 100 mg/dl. E-mailed pt a copy of the Cheat sheet to help him dose the insulin with meals. Reviewed a few examples to make sure he understand s the calculatio n and the cheat sheet. He demonstrat ed understand ing. Sensor download did not have much data on it, therefore, hard to make adjustment s with his insulin at this time since we did not have blood sugars to review. Will plan to do that more at next visit, since we are starting a new way of dosing his Humalog. Also reviewed carbohydra te counting and some food labels in his house to make sure he understand s carbohydra te counting. FU in 1 month to review sensor download. [id number] Mary Kate Weir MD , [facility], [address] [place] [address] 04/06/2022 10:40:31 04/06/2022 16:07:56 Tinnitus of left ear [id number] 106 H93.12 Temporoman dibular joint disorder 53736333 M26.609 you can use both ibuprofen and tylenol for best pain control; up to 4 ibuprofen and 2 extra strength tylenol together every 8 hours. take with food and watch for stomach upset which can occur from ibuprofen. Ibuprofen will be the most important element here; do not forget can ice 20 minutes on 40 minutes off or heat; if heat pay attention to if the area hurts more 2 hours after. [id number] , [facility], [address] [place] [address] 06/18/2022 13:48:25 06/18/2022 14:18:13 Uncontrolled type 2 diabetes mellitus 517481994 E11.65 stressed importance of controllin g sugars or wounds will not healat risk of losing toes if we arent aggressive check a1c today, will call pt with results and possible med adjustment Diabetic foot ulcer 3710 98252 E13.621 start abx, refer to wound caresee above [id number] Sheri Mata MD FP, [facility], [address] [place] [address] 07/22/2022 14:28:48 07/22/2022 15:55:20 Uncontrolled type 2 diabetes mellitus 218343286 E11.65 stressed importance of controllin g sugars or wounds will not healat risk of losing toes if we arent aggressive last a1c 10.7contin ue meds, pt aggressive ly managingre peat a1c september, see me afterphilla l message sent with info on nutrition consult name and number Diabetic foot ulcer 3710 22439 E13.621 slowly improvemen tcontinue with wound care [id number] Sheri Mata MD FP, [facility], [address] [place] [address] 08/10/2022 07:40:22 08/10/2022 08:42:21 Uncontrolled type 2 diabetes mellitus 058652801 E11.65 stressed importance of controllin g sugars or wounds will not healat risk of losing toes if we arent aggressive last a1c 10.7contin ue meds, pt aggressive ly managingre peat a1c september, see me afterif pt using more humalog and runs out, he will let us know and we will change instructio ns to get him more per month Neuropathy due to diabetes mellitus 090485000 E11.40 as above Diabetic foot ulcer 3710 96786 E13.621 slowly improvemen tcontinue with wound careMRI pending to rule out osteomyeli tis [id number] Sheri Mata MD FP, [facility], [address] [place] [address] 09/21/2022 14:38:30 09/21/2022 16:20:39 Essential hypertension 76935796 I10 well controlled on med Uncontroll ed type 2 diabetes mellitus 544235693 E11.65 a1c down to 7.9!contin ue diet, exercisewi ll back down lantus to avoid lows overnightc ontinue humalogrep eat labs, see me 3 monthsi will research berberine for safety Diabetic foot ulcer 3710 42729 E13.621 slowly improvemen tcontinue with wound care Health Concerns Section Related Observation LastModified by Organization Detai ls LastModified Time None Recorded Concern Status LastModified by Organization Details LastModified Time None Recorded Advance Directives Directive N: Payers Encounter Date Sequence Insurance Name Policy Number Policy Orozco Covered Member ID Orozco Member ID Guarantor Name 04/06/2022 1 [facility] [id number] 1 Wilberto Conway [id number] Ga Zoraida 06/18/2022 1 [facility] [id number] Wilberto Aquino Zoraida [id number] Wilberto Aquino Zoraida 07/22/2022 1 [facility] [id number] 1 Wilberto Aquino Zoraida [id number] Ga Zoraida 08/10/2022 1 [facility] [id number] 1 Wilberto Aquino Zoraida [id number] Wilberto Aquino Zoraida 09/21/2022 1 [facility] [id number] 1 Wilberto Aquino Zoraida [id number] Wilberto Aquino Zoraida Notes Date Note Type Note Provider Name and Address Organization Details Recorded Time 04/06/2022 text/html Pt reports L artur e ear and jaw pain ongoing about 2 wks, feels like he can hear constant humming in L ear, Denies drainage or swelling. Pain is worse when he opens his mouth. Mary Kate Weir MD [address] [place] [address], [phone], [facility] 04/06/2022 11:43:41 06/18/2022 text/html Foot issues. Big toe on both feet. Calluses. Blood blisters. presents to discuss feet. Has to wear steel toed shoes at work and now toes have painful blisters. Not checkin sugars. Taking meds as listed Sheri Mata MD [address] [place] [address], [phone], [facility] 06/18/2022 14:22:38 07/22/2022 text/html Patient presents to the office today for f/u on sore on foot. for followup foot ulcer and DM. Sugars mostly under 150. Taking meds as listed. WOrking hard on controlling.Seeing wound care, foot healing slowlyHasnt heard about nutrition consult Sheri Mata MD [address] [place] [address], [phone], [facility] 07/22/2022 14:59:41 08/10/2022 text/html Patient presents to the office today for a red spot on RT foot. to have me look at foot. Seems redder past few weeks. Mentioned to wound care, goes weekly. They did BW and xray. Pt brought results. BW looks OK, xray questionable for osteomyelitis. WC will be booking MRI, has followup wednesdaysugars usually under 150. Using humalog 3-4 times per day Sheri Mata MD [address] [place], [phone], [facility] 08/10/2022 08:23:38 09/21/2022 text/html for followup DM. Working very hard. Taking 50 lantus HS and 30 humalog with meals. Has been having lows in middle of night.Seeing wound care for foot. Had a setback, Was casted and caused infection, on two abx nowread about berberine, herb used in [place] for DM, wonders if can tryhad colon last week, normal Sheri Mata MD [address] [place], [phone], [facility] 09/21/2022 15:30:10
== END ==
LOC: HO.CARD 14:25
PROVIDERS: PCP Internal Medicine; Visit Provider Internal Medicine
DX: I25.10 Atherosclerotic heart disease of native coronary artery without angina pectoris (principal); R94.39 Abnormal result of other cardiovascular function study
CPT/HCPCS: 93306

== ENCOUNTER → 2024-07-04 14:28 | Outpatient (BNV) | payer OTHER, SELFPAY | PROVIDERS: PCP Internal Medicine; Visit Provider Internal Medicine Cardiovascular Disease | DX: I35.8 Other nonrheumatic aortic valve disorders (principal); I51.89 Other ill-defined heart diseases | CPT/HCPCS: 93306 ==

== ENCOUNTER 2024-08-07 09:38 | Outpatient (AMB) | payer OTHER, SELFPAY ==
--- NOTE | 2024-08-07 09:46 | MHC.PC.OV ---
Vital Signs 08/07/24 09:47 08/07/24 10:23 Height 5 ft 10 in Weight 219 lb 6 oz BMI 31.5 BP 140/80 H 138/68 Blood Pressure Location Lt brachial Lt brachial Position Sitting Sitting Pulse 84 Pulse Source Pulse Oximeter Temp 97.5 F Temp Source Temporal Artery Scan Pulse Oximetry (%) 95 Oxygen Delivery Method Room Air Intake Visit Reasons: 3 month f/u Sports Umpire Required: No Inside Sales Supervisor: Not Required per policy Accompanied by: Self / Same As Patient Allergies semaglutide [From Ozempic] Adverse Reaction (Intermediate, Verified 08/07/24 09:47) burping Medication List - Last Reconciled 08/07/24 by Leora Mann PA-C atorvastatin 10 mg PO BEDTIME cholecalciferol (vitamin D3) 25 mcg PO DAILY [Diabetic shoes As directed] empagliflozin (Jardiance) 25 mg PO DAILY flash glucose sensor (FreeStyle Pushpa 2 Sensor kit) USE DIRECTED TO MONITOR BLOOD GLUCOSE DAILY. CHANGE SENSOR EVERY 14 DAYS insulin glargine (Lantus Solostar U-100 Insulin) 40 units (0.4 mL) subcut QPM insulin lispro (Humalog KwikPen (U-100) Insulin) 25 units (0.25 mL) subcut TID lisinopril 5 mg PO DAILY metformin 1,000 mg PO BID multivitamin 1 tab PO DAILY sildenafil 100 mg PO DAILY PRN Tobacco use date assessed: 08/07/24 Dental Screening Dental Screen Date: 08/07/24 Did you have a dental visit in the last 12 months?: Yes Did you have a dental problem in the last 6 months where you did not have access to dental care?: No Was dental information given to patient?: Patient has dentist HPI 3 month f/u HPI Details 59-year-old male with past medical history of diabetes mellitus, hypercholesterolemia last seen 05/2024 coming in for follow up.? In review of the notes, patient was seen by Cardiology 06/29/2024 after abnormal stress test advised to undergo coronary CTA and echocardiogram which was completed 07/05/2024 showing normal ejection fraction 70% and no valvular abnormality. Presenting with follow-up needs for cardiovascular evaluation and diabetes management. Cardiovascular history includes an abnormal stress test, followed by a reassuring echocardiogram demonstrating good cardiac function and aortic valve calcification. Despite normal ejection fraction, the patient experiences exertional chest pain and dyspnea, necessitating a coronary CTA. The patient has Type 2 Diabetes Mellitus, initially with an HbA1c of 7.6%. Current management involves maximized doses of Jardiance and metformin, resulting in an HbA1c decrease to 7.1%, alongside episodic hypoglycemia. Patient endorses to episodes of low blood sugar below 100 but denies any blood sugars less than 70. [facility] Medical History Blood pressure elevated without history of HTN Diarrhea Asthma Surgical History Hx of tonsillectomy Aftercare following bilateral shoulder joint replacement surgery History of appendectomy Family History Mother Emphysema lung Father Heart failure Brother Substance use disorder Mental health disorder Brother No problems noted. Brother No problems noted. Sister No problems noted. Daughter No problems noted. Son No problems noted. Son No problems noted. Social History Housing: House Alcohol intake: current Alcohol intake frequency: a few times a week Alcohol type: beer Patient Tobacco Use Status: Never used Tobacco e-Cigarette/Vaping Use: Never Used Second Hand Smoke Exposure: No service: No Current occupational status: employed Cognitive needs: No Hearing needs: No Vision needs: Yes (Glasses) Questionnaire PHQ-9 Over the last 2 weeks, how often have you been bothered by any of the following problems? 1. Little interest or pleasure in doing things: not at all 2. Feeling down, depressed, or hopeless: not at all 3. Trouble falling or staying asleep, or sleeping too much: not at all 4. Feeling tired or having little energy: not at all 5. Poor appetite or overeating: not at all 6. Feeling bad about yourself - or that you are a failure or have let yourself or your family down: not at all 7. Trouble concentrating on things, such as reading the newspaper or watching television: not at all 8. Moving or speaking so slowly that other people could have noticed. Or the opposite - being so fidgety or restless that you have been moving around a lot more than usual: not at all 9. Thoughts that you would be better off or of hurting yourself in some way: not at all Total score: 0 Depression Screening Interpretation: Negative Depression Screening Done: Yes Source: Developed by Drs. Yovani Collazo, Ese Baxter, Deion Estrella and colleagues, with an educational valeriy from [employer]. Thrive Questionnaire Date Thrive assessed: 08/07/24 AUDIT C Alcohol Use Questionnaire (AUDIT-C) 1. How often do you have a drink containing alcohol?: 2-3 times a week 2. How many drinks containing alcohol do you have on a typical day when you are drinking?: 1 or 2 Total Score: 3 ELIU-7 AMB Questionnaire ELIU-7 Date ELIU - 7 assessed: 08/07/24 Feeling nervous, anxious, or on edge: 0 = Not at all Not being able to stop or control worryin = Not at all Worrying too much about different things: 0 = Not at all Trouble relaxin = Not at all Being so restless that it is hard to sit still: 0 = Not at all Becoming easily annoyed or irritable: 0 = Not at all Feeling afraid as if something awful might happen: 0 = Not at all Total ELIU-7 score (0-4 normal; 5-9 mild; 10-14 moderate; 15-21 severe): 0 Source: Developed by Drs. Yovani Collazo, Deion Chapman and colleagues, with an educational valeriy from [employer]. Review of Systems Const Denies body aches, Denies chills, Denies fever(s), Denies headache(s) and Denies poor appetite Eyes Reports no additional complaints ENT Denies dysphagia, Denies dizziness, Denies headache(s) and Denies odynophagia Card Denies chest pain, Denies syncope, Denies edema, Denies irregular heart rhythm, Denies lightheadedness and Denies dyspnea Resp Denies cough and Denies dyspnea GI Denies abdominal pain, Denies constipation, Denies dysphagia, Denies diarrhea, Denies nausea, Denies odynophagia and Denies vomiting Reports no additional complaints Musc Reports no additional complaints and Denies abnormal gait Skin/Breast Reports system reviewed and no additional complaints, except as documented Neuro Denies abnormal gait, Denies dizziness, Denies syncope and Denies headache(s) Psych Reports no additional complaints Physical exam (Primary Care) Vital Signs: Last Vital Signs Temp 97.5 F 08/07/24 09:47 Pulse 84 08/07/24 09:47 BP 140/80 H 08/07/24 09:47 Pulse Ox 95 08/07/24 09:47 Oxygen Delivery Method Room Air 08/07/24 09:47 BMI result Body Mass Index 31.5 Tobacco/Smoking Status: Tobacco use Status Tobacco use date assessed 08/07/24 08/07/24 09:50 Patient Tobacco Use Status Never used Tobacco 08/07/24 09:50 e-Cigarette/Vaping Use Never Used 08/07/24 09:50 PHQ-9: PHQ-9 Score PHQ-9: Total score 0 08/07/24 09:50 Depression Screening Interpretation: Negative Thrive Assessment: Date of Thrive Assessment Date Thrive assessed 08/07/24 08/07/24 09:50 Const General: cooperative, healthy appearing, comfortable and no acute distress Orientation/consciousness: patient oriented x3 HENMT Head: Yes normocephalic Ears: hearing grossly normal bilaterally General nose exam: Normal external nose present Eyes General: appearance normal, both eyes and all related structures Conjunctivae: conjunctivae normal Neck Neck: Yes full ROM and Yes no lymphadenopathy Resp Effort & Inspection: normal respiratory effort Auscultation: clear to auscultation bilaterally, no crackles, no rales, no rhonchi and no wheezes Cardio Rate: regular rate Rhythm: regular rhythm Skin General skin exam: no rashes or lesions noted Neuro General: patient oriented x3 Gait exam (Neuro): Normal gait present Extrem General: Yes normal to inspection, Yes full ROM and No edema Psych Affect: normal affect Attitude: cooperative Insight: Good insight present (Psych) Judgement: Good judgement present (Psych) Results AMB Hemoglobin A1c AMB Hemoglobin A1c 7.1 % Last Edit by VICKI Santos on 08/07/24 09:58 Results Reviewed Results Reviewed: Laboratory Last Values Hgb A1c (Clinic) 7.1 % (4.0-6.0) H 08/07/24 09:46 Coding Level of Care Code Est Pt Level 4 (58379) Diagnoses Abnormal stress ECG with treadmill R94.39 Type 2 diabetes mellitus with hyperglycemia E11.65 Blood pressure elevated without history of HTN R03.0 Hypercholesterolemia E78.00 Obesity (BMI 30-39.9) E66.9 Assessment & Plan Assessment & Plan (1) Abnormal stress ECG with treadmill: Code(s): R94.39 - Abnormal result of other cardiovascular function study Category: Medical Plan: Patient recently seen by cardiology advised to undergo coronary CTA and transthoracic echocardiogram for further evaluation. Echocardiogram normal plan to follow up with Cardiology in August after CTA has been completed. (2) Type 2 diabetes mellitus with hyperglycemia: Code(s): E11.65 - Type 2 diabetes mellitus with hyperglycemia Category: Medical Plan: Decrease the amount of carbohydrates such as pasta, bread, rice, and potatoes and limit the amount of sweets. Although fruits are generally healthy they should be eaten in moderation as they are still high in sugar. Hemoglobin A1c goal of less than 7%. A1c in the clinic today 7.1% improved since last visit. Due to occasional lows we will not increase insulin and patient is currently on max dose of Jardiance and metformin. Advised continue dietary and lifestyle modification and follow up in 3 months. Advised patient to reach out blood pressure continually drops below 100. (3) Blood pressure elevated without history of HTN: Code(s): R03.0 - Elevated blood-pressure reading, without diagnosis of hypertension Category: Medical Plan: Continue on current blood pressure medication. Avoid salt intake and encourage healthy diet and regular exercise. Blood pressure elevated 140/80 when retaken 138/68. Advised patient to obtain blood pressure cuff and take blood pressure at home 3-4 times per week and bring log to next appointment. (4) Hypercholesterolemia: Code(s): E78.00 - Pure hypercholesterolemia, unspecified Category: Medical Plan: Avoid foods that are high in cholesterol such as red meat, fried foods, eggs and baked goods. Triglyceride goal of less than 150 and LDL goal of less than 100. Continue on atorvastatin 10 (5) Obesity (BMI 30-39.9): Code(s): E66.9 - Obesity, unspecified Category: Medical Plan: Healthy diet and regular exercise is encouraged. Plan This note was constructed using voice recognition software. While every effort has been made to ensure accuracy and body shop estimator, still areas may have been included sometimes these areas may affect the content or meeting of the given symptoms. Total time spent caring for the patient today was 20 minutes. This includes time spent before the visit reviewing the chart, time spent during the visit, and time spent after the visit and documentation. Orders: Orders AMB Hemoglobin A1c Today E11.65 - Type 2 diabetes mellitus with hyperglycemia
[2024-08-07 09:47] VITALS: BP 140/80; PULSE 84; TEMP 36.4; O2SAT 95; BMI 31.5
[2024-08-07 10:23] VITALS: BP 138/68
--- OUTSIDE RECORDS SUMMARY | 2024-08-07 10:30 | XMS_ITS | Data Portability ---
Author Organization [facility], [facility] Address [address] [place] [address] Care Team Providers Care Hydraulic Governor Assembler Name Role Phone JOSS WHEELER Pelletizer Operator SHAREE MARTINEZ Cattle Driver ERNIE DEAN 3D Technologist Assessment Encounter Date Assessment Date Assessment LastModified by Organization Details LastModified Time 09/21/2022 09/21/2022 colon 10/[address] chin [email or web address] Not available 09/21/2022 15:28:01 Plan of Treatment Reminders Order Date Submit Date Provider Last Modified By Organization Details Last Modified Time Details Appointments None recorded. Lab HbA1c (hemoglobin A1c), blood [address] [facility] ([place] [place] Lab, [address] [place], [address], 3 11:02:52 microalbumi n/creatinin e, ratio panel, urine [address] [facility] [place], [address] [place], [address], 3 12:27:09 Referral wound care referral - DM foot ulcers, both great toes 2022 023 [email or web address] Hammonds [facility], [address] [place] [address] [place], [address], 3 10:12:51 nutritionis t/dietitian referral 2022 023 [email or web address] Suze Whipple, [address] [place] [address] [place], [address], 3 10:49:02 otolaryngol ogist referral - tinnitus and TMJ same side; please eval and Rx as needed 2021 022 [email or web address] Dunia Burkett MD, [address] [place], [address], 2 11:14:12 Procedures None recorded. Surgeries None recorded. Imaging None recorded. Medication Orders cephalexin 500 mg tablet 2022 023 [facility], [address] [place] [address], [place], [address], 14:38:26 Patient TargetsNo targets recorded. Patient InstructionsNo instructions recorded. 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 METAB OLIC PANEL glucose 262 mg/dL 70-100 high Not Available [address], [address], 06/19/2022 11:00:07 06/18/19 23 06/19/2022 COMP. METAB OLIC PANEL BUN 13 mg/dL 7-18 Not Available [address], [address], 06/19/2022 11:00:07 06/18/19 23 06/19/2022 COMP. METAB OLIC PANEL creatinine 1.0 mg/dL 0.8-1. 3 Not Available [address], [address], 06/19/2022 11:00:07 06/18/19 23 06/19/2022 COMP. METAB OLIC PANEL B/C 13.0 ratio Not Available [address], [address], 06/19/2022 11:00:07 06/18/19 23 06/19/2022 COMP. METAB [...] be used in pregn valentina. Not Available [address], [address], 06/19/2022 11:00:07 06/18/19 23 06/19/2022 COMP. METAB OLIC PANEL sodium 140 mmol/ L 136-14 5 Not Available [address], [address], 06/19/2022 11:00:07 06/18/19 23 06/19/2022 COMP. METAB OLIC PANEL potassium 5.0 mmol/ L 3.5-5. 1 Not Available [address], [address], 06/19/2022 11:00:07 06/18/19 23 06/19/2022 COMP. METAB OLIC PANEL chloride 101 mmol/ L 96-107 Not Available [address], [address], 06/19/2022 11:00:07 06/18/19 23 06/19/2022 COMP. METAB OLIC PANEL anion gap 7.6 5.0-15 .0 Not Available [address], [address], 06/19/2022 11:00:07 06/18/19 23 06/19/2022 COMP. METAB OLIC PANEL CO2 31 mmol/ L 21-32 Not Available [address], [address], 06/19/2022 11:00:07 06/18/19 23 06/19/2022 COMP. METAB OLIC PANEL calcium 9.2 mg/dL 8.5-10 .3 Not Available [address], [address], 06/19/2022 11:00:07 06/18/19 23 06/19/2022 COMP. METAB OLIC PANEL total protein 7.2 g/dL 6.4-8. 2 Not Available [address], [address], 06/19/2022 11:00:07 06/18/19 23 06/19/2022 COMP. METAB OLIC PANEL albumin 4.2 g/dL 3.4-5. 0 Not Available [address], [address], 06/19/2022 11:00:07 06/18/19 23 06/19/2022 COMP. METAB OLIC PANEL globulin 3.0 g/dL Not Available [address], [address], 06/19/2022 11:00:07 06/18/19 23 06/19/2022 COMP. METAB OLIC PANEL A/G 1.4 ratio 0.8-2. 0 Not Available [address] [place], [address], 06/19/2022 11:00:07 06/18/19 23 06/19/2022 COMP. METAB OLIC PANEL total bilirubin 0.80 mg/dL 0.00-1 .00 Not Available [address], [address], 06/19/2022 11:00:07 06/18/19 23 06/19/2022 COMP. METAB OLIC PANEL AST 20 U/L 0-37 Not Available [address], [address], 06/19/2022 11:00:07 06/18/19 23 06/19/2022 COMP. METAB OLIC PANEL ALT 37 U/L 6-63 Not Available [address], [address], 06/19/2022 11:00:07 06/18/19 23 06/19/2022 COMP. METAB OLIC PANEL alk. phos. 117 U/L 50-136 Not Available [address], [address], 06/19/2022 11:00:07 06/18/19 23 06/19/2022 LIPID PANEL cholesterol 191 mg/dL <200 mg/dl Maty able 200-2 39 mg/dl Borde rline High >240 mg/dl High Not Available [address], [address], 06/19/2022 11:00:09 06/18/19 23 06/19/2022 LIPID PANEL triglyceride s 289 mg/dL high LIPS= Speci men Sligh tly Lipem ic. Chem Resul ts may be effec nicole. <150 mg/dL Karley l 150-1 99 mg/dL Borde rline High 200-4 99 mg/dL High >500 mg/dL Very High Not Available [address], [address], 06/19/2022 11:00:09 06/18/19 23 06/19/2022 LIPID PANEL direct HDL 54 mg/dL <40 mg/dl - Major Risk for CHD >60 mg/dl - Negat garry Risk for CHD Not Available [address], [address], 06/19/2022 11:00:09 06/18/19 23 06/19/2022 DIREC T [...] r is not neces audrey. Not Available [address], [address], 06/19/2022 11:00:11 06/18/19 23 06/19/2022 HGB A1C [...] furth er confi rmati on Not Available [address], [address], 06/19/2022 12:22:00 06/18/19 23 06/19/2022 HGB A1C estimated average glucose 260.4 mg/dL Not Available [address], [address], 06/19/2022 12:22:00 09/13/19 23 09/14/2022 HGB A1C [...] furth er confi rmati on Not Available [address], [address], 09/14/2022 11:02:52 09/13/19 23 09/14/2022 HGB A1C estimated average glucose 180.0 mg/dL Not Available [address], [address], 09/14/2022 11:02:52 09/13/19 23 09/14/2022 MICRO ALBUM IN/CR EATIN INE RATIO PANEL , URINE microalbumin 8.0 mg/L 1.3-20 .0 Not Available [address], [address], 09/14/2022 12:27:09 09/13/19 23 09/14/2022 MICRO ALBUM IN/CR EATIN INE RATIO PANEL , URINE creatinine urine 100.6 mg/dL 30.0-1 25.0 Not Available [address], [address], 09/14/2022 12:27:09 09/13/19 23 09/14/2022 MICRO ALBUM IN/CR EATIN INE RATIO PANEL , URINE microalb/cre at ratio 8.0 mg/g_ creat 0.0-29 .0 Not Available [address], [address], 09/14/2022 12:27:09 06/10/20 22 06/10/2022 US abdom [...] wnl IVC: appear s wnl WALLACE SWEET [facility] [address] [facility], [place], [address], 06/11/2022 07:07:36 10/14/19 23 09/17/2022 colon oscop y proce dure (PROC ) No observ ation record ed. BARCODE Not Available 2022 11:32:22 Result Notes None recorded. Problems Name Problem SNOMED Code Status Onset Date Resolution Date Notes Provider Name and Address Organization Details Recorded Time Essential hypertensi on 29680205 Active Not Available [facility] 3 21:02:46 Excessive cerumen in ear canal 281306656 Active Not Available [facility] 3 21:02:46 Anxiety 67880337 Active 2016 Not Available [facility] 3 21:02:46 Neuropathy due to diabetes mellitus 867701983 Active 2018 Not Available [facility] 3 21:02:46 Mixed hyperlipid emia 331570508 Active 2006 Not Available [facility] 3 21:02:46 Internal hemorrhoid s 46421201 Completed 200205/03/2013 Not Available [facility] 3 02:03:12 Effusion of joint of shoulder region 05264930 Completed 03/27/2014 Wallace Sweet MD [address] [place] [address], [address] , [facility] 4 05:26:27 Impotence of organic origin Active 2007 Not Available [facility] 3 21:02:46 Carpal tunnel syndrome 23030695 Active 2001 Not Available [facility] 3 21:02:46 Diabetes mellitus 15887123 Completed 200603/27/2014 Wallace Sweet MD [address] [place] [address], [address] , [facility] 4 05:26:27 Disorder of bursa of shoulder region 58868691 Completed 200705/03/2013 Not Available [facility] 3 02:04:09 Temporoman dibular joint disorder 24233015 Completed 200103/27/2014 Wallace Sweet MD [address] [place] [address], [address] , [facility] 4 05:26:43 Shoulder pain 34337440 Completed 200707/29/2008 Not Available [facility] 3 03:03:47 Shoulder pain 71363357 Completed 05/03/2013 Not Available [facility] 3 02:01:00 Benign essential hypertensi on 8336570 Completed 01/19/2012 Not Available [facility] 3 03:03:47 Impacted cerumen 86850648 Completed 200005/03/2013 Not Available [facility] 3 02:02:10 Pure hyperchole sterolemia 244694138 Completed 200203/27/2014 Wallace Sweet MD [address] [place] [address], [address] , [facility] 4 05:26:27 Medial epicondyli tis 73374069 Completed 200705/03/2013 Not Available [facility] 3 02:04:00 Obesity 056740306 Active 2006 Not Available [facility] 3 21:02:46 Abdominal pain 69174040 Completed 200205/03/2013 Not Available [facility] 3 02:01:20 On examinatio n - a rash Completed 05/03/2013 Not Available [facility] 3 02:00:46 Type 2 diabetes mellitus without complicati on 780639522 Completed 03/27/2014 Wallace Sweet MD [address] [place] [address], [address] , [facility] 4 05:26:43 Type 2 diabetes mellitus without complicati on 325276197 Completed 200601/05/2012 Not Available [facility] 3 03:03:47 Hearing loss 13484789 Active 2001 Not Available [facility] 3 21:02:46 Renal disorder due to type 2 diabetes mellitus 550420140 Active 2006 Not Available [facility] 3 21:02:46 Elevated blood-pres sure reading without diagnosis of hypertensi on 624897684 Completed 200103/27/2014 Wallace Sweet MD [address] [place] [address], [address] , [facility] 4 05:26:27 Sprain of knee and leg Completed 200205/03/2013 Not Available [facility] 3 02:03:04 Uncontroll ed type 2 diabetes mellitus 985464243 Active 2007 Not Available [facility] 3 21:02:46 Scrotal varices Active 2001 Not Available [facility] 3 21:02:46 Otogenic otalgia 83167142 Completed 200105/03/2013 Not Available [facility] 3 02:03:18 Notes:Some problems listed i n Document: #[id number] could not be added to this patient's chart. Please review this document and add these problems to the patient's chart manually as needed. Problem Notes None recorded. Procedures Surgical History Date Name Laterality Status Provider Name and Address Organization Details Recorded Time 01/09/20 22 Fundus Photography completed Erna Villalpando, OD [address] [place] [address], [phone], [facility] 01/09/2022 13:35:41 04/25/20 21 Fundus Photography completed Erna Villalpando, OD [address] [place] [address], [address], [facility] 04/25/2021 09:33:54 04/25/20 21 Optical Coherence Tomography (Retina) completed Erna Villalpando, OD [address] [place] [address], [address], [facility] 04/25/2021 09:34:09 05/23/20 19 Cerumen Removal - Irrigation/Lavag e completed Anabelle Bragg [facility] 05/23/2019 11:33:23 10/06/19 19 Cerumen Removal - Irrigation/Lavag e completed Yvonne Edwards [facility] 10/05/2018 14:20:07 01/08/20 18 Cerumen Removal - Irrigation/Lavag e completed Akua Pizano LPN [facility] 01/07/2018 16:13:04 07/19/19 18 Cerumen Removal - Irrigation/Lavag e completed Mary Lott LPN [facility] 07/19/2017 11:26:34 11/25/19 17 Glucose Meter Teaching completed Akua Pizano LPN [facility] 11/24/2016 09:44:01 09/20/19 17 Cerumen Removal - Irrigation/Lavag e completed Karina Eseppi [facility] 09/19/2016 13:28:46 12/17/19 16 Cerumen Removal completed Michelle Mary LPN [facility] 12/17/2015 11:32:24 03/07/20 15 Cerumen Removal completed Viri Gomez RN [facility] 03/07/2015 17:46:53 06/06/20 14 Cerumen Removal completed Shannan VelasquezGilles CONNOLLY [facility] 06/06/2014 09:00:42 10/06/19 13 Cerumen Removal completed Michelle Mary LPN [facility] 10/05/2012 11:59:21 04/14/20 12 Other (specify) completed Domenic Collazo MD [address] [place] [address], [phone], [facility] 04/04/2014 14:03:38 01/19/20 12 Cerumen Removal completed Cate Sims RN [facility] 01/19/2012 12:04:10 12/22/19 12 Treatment and Advice completed Ammy Chou OT [address] [place] [address], [address], [facility] 12/22/2011 13:00:06 08/11/19 11 Cerumen Removal completed [facility] 08/11/2010 16:18:17 10/15/19 10 Cerumen Removal completed Zo Johnston LPN [place] Irvin Cardenas y [facility] 10/14/2009 11:03:38 08/08/19 10 Aspiration Major Joint/Bursa completed Wallace Sweet MD [address] [place] [address], [phone], [facility] 08/08/2009 12:04:47 06/14/19 10 Other (specify) completed Domenic Collazo MD [address] [place] [address], [phone], [facility] 04/04/2014 14:03:38 12/20/19 09 Cerumen Removal completed Marge Richey NP [address] [place] [address], [address], [facility] 12/19/2008 09:54:31 06/14/18 84 Appendectomy completed Domenic Collazo MD [address] [place], [address], [facility] 04/04/2014 14:03:38 06/14/18 71 Other (specify) completed Domenic Collazo MD [address] [place], [address], [facility] 04/04/2014 14:03:38 Imaging Results Imaging Date Name Status LastModified by Organiz ation Details LastModified Time 06/10/2022 US abdomen limited right upper quadrant completed [facility] [address] [place], [address], 06/11/2022 07:07:36 09/17/2022 colonoscopy procedure (PROC) completed BAR[facility] Information not available 10/13/2022 11:32:22 Procedure Notes None recorded. Medical Equipment None Reported. Allergies Allergen ID Allergen Name Allergen Category Reaction Reaction Severity Criticality Documentation Date Start Date Code Code System Note Provider Name and Address Organization Details Recorded Time Trulicity medicatio n abdominal pain moderate Not available 03/22/2020 21782 96 RxNorm Jumana Johnson [facility], [facility] 11:01:03 Medications Name Sig Start Date Stop [...] Not Available Vitals Date Recorded Body height Heart rate Body temperature Body mass index (BMI) Body weight Systolic blood pressure Diastolic blood pressure Provider Name and Address Organization Details Last Updated DateTime 2 177.8 cm 84 /min 98.1 [degF] 31.1 kg/m2 53090.7 5 g 136 mm[Hg] 74 mm[Hg] Socorro Mckeon [facility] 2 11:09:57 Date Recorded Body height Body mass index (BMI) Body weight Body temperature Heart rate Oxygen saturation Oxygen saturation in Arterial blood by Pulse oximetry Systolic blood pressure Diastolic blood pressure Provider Name and Address Organization Details Last Updated DateTime 3 177.8 cm 31.7 kg/m2 990357. 91 g 98.1 [degF] 90 /min 97 % 97 % 140 mm[Hg] 66 mm[Hg] VICKI Funes [facility] 3 14:03:45 Date Recorded Body height Heart rate Oxygen saturation Oxygen saturation in Arterial blood by Pulse oximetry Systolic blood pressure Diastolic blood pressure Provider Name and Address Organization Details Last Updated DateTime 3 177.8 cm 80 /min 97 % 97 % 128 mm[Hg] 60 mm[Hg] Gloria Crockett MA [facility] 3 14:42:18 Date Recorded Body height Heart rate Oxygen saturation Oxygen saturation in Arterial blood by Pulse oximetry Systolic blood pressure Diastolic blood pressure Provider Name and Address Organization Details Last Updated DateTime 3 177.8 cm 82 /min 96 % 96 % 112 mm[Hg] 60 mm[Hg] Gloria Crockett MA [facility] 3 08:07:48 Date Recorded Body weight Body temperature Heart rate Respiratory rate Oxygen saturation Oxygen saturation in Arterial blood by Pulse oximetry Systolic blood pressure Diastolic blood pressure Provider Name and Address Organization Details Last Updated DateTime 3 45654.4 7 g 97.2 [degF] 88 /min 16 /min 96 % 96 % 144 mm[Hg] 69 mm[Hg] Gloria Crockett MA [facility] 3 15:25:48 Date Recorded Body height Body mass index (BMI) Body weight Systolic blood pressure Diastolic blood pressure Provider Name and Address Organization Details Last Updated DateTime 09/21/2022 177.8 cm 32.7 kg/m2 454107.0 6 g 128 mm[Hg] 64 mm[Hg] Gloria Crockett MA [facility] 3 15:11:54 Social History Question Answer Notes LastModified by Organizat ion Details LastModified Time Tobacco Smoking Status Never Smoker Not Available [facility] 2011 04:53:49 Do You Have An Advance Directive? No [email or web address] Information not available 2011 What Is Your Level Of Alcohol Consumption? Moderate 1-2 Every 2-3 Weeks [email or web address] Information not available 07/22/2022 What Is Your [...] not available 05/23/2019 What Is Your Occupation? [employer] Information not available 07/28/2012 How Many Days In The Past Year Have You Had A Heavy Drinking Consumption (4+ Female, 5+ Male)? 3 Information not available 07/28/2012 Are There Any Guns Present In Your Home? No [email or web address] Information not available 2011 Live Alone Or With Others? With Others [email or web address] Information not available 2011 DM Disease Process Not Assessed Information not [...] Of Your Most Recent Tobacco Screening? 09/21/2022 Information not available 09/21/2022 How Many Children [...] Other Forms Of Tobacco Or Nicotine? No [email or web address] Information not available 07/22/2022 Sex: Unknown Functional [...] Medical History Condition Response Erectile Dysfunction Y Hyperlipidemia Y Diabetes Type II Y Hypertension Y Immunizations Vaccine Type Date Status Note Provider Nam e and Address Organization Details Recorded Time Td(adult) unspecified formulation 7 completed Not Available [facility] 10/01/2022 21:02:47 influenza, unspecified formulation 7 completed Not Available [facility] 10/01/2022 21:02:47 pneumococcal polysaccharide PPV23 7 completed Not Available [facility] 10/01/2022 21:02:47 influenza, unspecified formulation 7 completed Not Available [facility] 10/01/2022 21:02:47 influenza, unspecified formulation 8 completed Not Available [facility] 10/01/2022 21:02:47 Influenza, split virus, quadrivalent, PF 3 completed Not Available [facility] 07/01/2019 02:26:42 Influenza, split virus, trivalent, preservative 4 completed Not Available [facility] 10/01/2022 21:02:47 Influenza, split virus, quadrivalent, PF 9 completed Not Available [facility] 07/01/2019 02:38:00 Tdap 2 completed Wallace Sweet MD [address] [place] [address], [address], [facility] 12/02/2021 13:46:50 COVID-19, mRNA, LNP-S, PF, 30 mcg/0.3 mL dose 1 completed Not Available [facility] 10/01/2022 21:02:47 COVID-19, mRNA, LNP-S, PF, 30 mcg/0.3 mL dose 1 completed Not Available [facility] 10/01/2022 21:02:47 Past Encounters Encounter ID Performer Location Encounter Start Date Encounter Closed Date Diagnosis/Indication Diagnosis SNOMED-CT Code Diagnosis ICD10 Code Diagnosis Note [id number] [facility], [address]ICE [address] [place] [address] 10/27/2000 10:45:00 07/04/2008 02:02:29 [id number] [facility], [address] [place] [address] 11/25/2001 10:38:36 07/04/2008 02:02:29 [id number] [facility], [address] [place] [address] 11/22/2001 12:58:05 07/04/2008 02:02:29 [id number] [facility], [address] [place] [address] 02/17/2002 10:16:06 07/04/2008 02:02:29 [id number] [facility], [address] [place] [address] 04/11/2002 10:38:32 07/04/2008 02:02:29 [id number] [facility], [address] [place] [address] 05/18/2002 08:54:31 07/04/2008 02:02:29 [id number] [facility] - [facility] [address] [place] [address] 06/23/2002 08:25:25 07/04/2008 02:02:29 [id number] [facility], [address] [place] [address] 10/27/2002 10:38:56 07/04/2008 02:02:29 [id number] [facility], OFFICE [address] [facility] [place] [address] 12/04/2002 14:46:36 07/04/2008 02:02:29 [id number] LAB - [facility] [address] [place] [address] 12/04/2002 00:00:00 07/04/2008 02:02:29 [id number] FP [facility], OFFICE [address] [facility] [place] [address] 12/19/2002 16:00:41 07/04/2008 02:02:29 [id number] FP, [facility], OFFICE [address] [facility] [place] [address] 05/21/2003 13:45:19 05/21/2003 17:33:03 [id number] FP [facility], OFFICE [address] [facility] [place] [address] 11/01/2003 16:14:38 11/02/2003 10:55:10 [id number] [facility], OFFICE [address] [facility] [place] [address] 06/09/2004 09:12:28 06/09/2004 14:35:16 [id number] FP, [facility], OFFICE [address] [facility] [place] [address] 07/17/2005 09:52:58 07/17/2005 15:36:35 [id number] FP [facility], OFFICE [address] [facility] [place] [address] 07/05/2006 10:47:49 07/05/2006 15:09:32 [id number] LAB - [facility] [address] [facility] [place] [address] 07/06/2006 07:27:25 07/06/2006 07:27:29 [id number] FP [facility], OFFICE [address] [facility] [place] [address] 07/09/2006 13:58:02 07/09/2006 15:28:32 [id number] LAB - [facility] [address] [facility] [place] [address] 07/09/2006 14:56:53 07/09/2006 14:57:19 [id number] FP, [facility], OFFICE [address] [facility] [place] [address] 07/16/2006 00:00:00 07/04/2008 02:02:29 [id number] [facility], OFFICE [address] [facility] [place] [address] 07/23/2006 07:25:57 07/23/2006 11:32:05 [id number] [facility], OFFICE [address] [place] PATEL[address] 07/26/2006 13:43:23 07/26/2006 16:17:18 [id number] LAB - [facility] [address] Anand[address] 08/09/2006 07:13:41 08/09/2006 07:13:45 [id number] [facility], OFFICE [address] [place] 6 08/27/2006 08:04:39 08/27/2006 11:15:54 [id number] [facility], OFFICE [address] [place] PAT[place] 6 08/24/2006 08:24:16 09/13/2006 14:24:02 [id number] [facility], OFFICE [address] [place] [address] 12/21/2006 14:50:21 12/23/2006 08:29:08 [id number] LAB - [facility] [place] [address] 12/24/2006 07:43:32 12/24/2006 07:43:36 [id number] LAB - [facility] [place] [address] 03/16/2007 07:12:11 03/16/2007 07:12:16 [id number] [facility], OFFICE [address] [place] [address] 03/22/2007 15:01:47 07/04/2008 02:02:29 [id number] [facility], OFFICE [address] [place] [address] 05/23/2007 09:05:39 07/04/2008 02:02:29 [id number] LAB - [facility] [address] [place] [address] 05/27/2007 07:46:56 05/27/2007 07:47:00 [id number] [facility], OFFICE [address] [place] [address] 07/22/2007 10:48:34 07/04/2008 02:02:29 [id number] [facility], OFFICE [address] [place] [address] 12/22/2007 14:13:35 07/04/2008 02:02:29 [id number] LAB - [facility] [address] [place] [address] 12/21/2007 07:18:47 12/21/2007 07:18:53 [id number] Physical Therapy, [facility] [address] [place] Anand[address] 12/28/2007 16:24:57 12/29/2007 09:55:50 [id number] [facility], OFFICE [address] [facility] ANN HERNANDEZ[address] 6 01/16/2008 13:54:48 07/04/2008 02:02:29 [id number] Physical Therapy, [facility] [address] [place] [address] 01/11/2008 16:24:51 01/24/2008 14:08:00 [id number] [facility], OFFICE [address] [facility] ANN HERNANDEZ[address] 6 02/22/2008 08:46:10 07/04/2008 02:02:29 [id number] [facility] [facility], OFFICE [address] [facility] [place] [address] 02/27/2008 10:14:54 07/04/2008 02:02:29 [id number] LAB - [facility] [address] [place] [address] 6 04/19/2008 07:02:00 04/19/2008 07:02:05 [id number] CLAUDE [facility], OFFICE [address] [facility] [place] [address] 05/03/2008 09:17:10 07/04/2008 02:02:29 [id number] [facility], OFFICE [address] [facility] [address] 6 05/08/2008 10:28:13 07/04/2008 02:02:29 [id number] [facility], OFFICE [address] [facility] [place] [address] 6 05/17/2008 10:44:38 07/04/2008 02:02:29 [id number] [facility], OFFICE [address] [facility] [place] [address] 6 07/26/2008 10:36:24 07/30/2008 11:01:51 [id number] [facility], OFFICE [address] [facility] [place] [address] 6 11/07/2008 10:33:14 11/12/2008 14:37:51 [id number] Radiology , [facility] 70 [facility] [place] [address] 11/07/2008 11:51:45 11/09/2008 11:42:29 [id number] , [facility], OFFICE [address] [facility] [place]DEZ[address] 6 12/19/2008 09:10:58 12/19/2008 14:12:15 [id number] , [facility], OFFICE [address] [facility] [place] [address] 02/20/2009 16:27:04 02/21/2009 14:15:54 [id number] LAB - [facility] 70 [facility] [place] Rat[place] 6 10/29/2008 07:04:44 10/29/2008 07:04:54 [id number] Eye Care, [facility] 70 [facility] [place] 6 12/04/2008 08:35:01 12/04/2008 14:08:24 [id number] LAB - [facility] 70 [facility] [place] [address] 02/05/2009 08:52:32 02/05/2009 08:52:40 [id number] [facility], OFFICE [address] [facility] [place] [address] 6 08/08/2009 10:49:48 08/09/2009 11:28:19 [id number] [facility], OFFICE [address] [place] [address] 6 09/17/2009 10:57:01 09/19/2009 12:48:32 [id number] [facility], OFFICE [address] [place] [address] 6 10/01/2009 09:16:37 10/01/2009 14:51:25 [id number] , [facility], OFFICE [address] [facility] [place] [address] 6 10/14/2009 10:06:27 10/14/2009 12:00:02 [id number] , [facility], OFFICE [address] [place] [address] 01/16/2010 07:41:39 01/16/2010 12:37:13 [id number] , [facility], OFFICE [address] [facility] [place] [address] 6 08/11/2010 14:49:16 08/14/2010 13:29:10 [id number] [facility], OFFICE [address] [facility] [place] [address] 6 09/04/2010 11:12:12 09/09/2010 08:33:12 [id number] [facility], OFFICE 70 [facility] [address] 6 01/14/2011 10:09:19 01/14/2011 11:23:50 [id number] [facility], OFFICE [address] [facility] [address] 6 04/10/2011 11:50:57 04/13/2011 13:24:56 [id number] [facility], OFFICE [address] [facility] [address] 6 12/22/2011 07:59:48 12/22/2011 14:26:16 [id number] Radiology , [facility] 70 [place] [address] 6 12/22/2011 08:46:23 12/23/2011 11:15:39 [id number] Physical Therapy, [address] [address] 12/22/2011 12:29:23 12/23/2011 07:34:56 [id number] [facility], OFFICE [address] [place] [address] 6 01/05/2012 08:28:16 01/05/2012 09:29:20 [id number] Physical Therapy, [facility] [address] [place] [address] 01/05/2012 12:21:57 01/05/2012 13:09:59 [id number] Physical Therapy, [address] [address] 01/14/2012 14:16:39 01/15/2012 07:40:59 [id number] Domenic Collazo MD [facility], OFFICE [address] [place] [address] 6 01/19/2012 07:32:37 01/19/2012 09:15:36 [id number] Nutrition -[facility] 70 [place] [address] 6 02/10/2012 08:18:57 02/10/2012 09:08:04 [id number] Domenic Collazo MD , [facility], OFFICE [address] [place] [address] 6 07/28/2012 08:56:22 07/28/2012 09:46:12 [id number] Makayla Solares [facility], OFFICE [address] [place] [address] 6 10/05/2012 11:05:15 10/05/2012 15:55:29 [id number] Wallace Sweet MD , [facility], OFFICE [address] [place] [address] 6 06/13/2013 08:52:36 06/13/2013 09:57:34 Influenza vaccine needed [id number] 106 Mixed hyperlipidemia 241678197 continue to work on diet and exercise as discussed Uncontroll ed type 2 diabetes mellitus 279873684 Benign ess ential hypertension 7791112 continue to work on diet ,exercisea nd lowering salt intake as discussed [id number] HAFSA Law , [facility], OFFICE [address] [place] [address] 08/04/2013 15:13:51 08/07/2013 13:22:35 Impacted cerumen 77139140 irrigated in clinic no complicati ons. [id number] Gloria Murphy , [facility], OFFICE [address] [place] [address] 03/26/2014 16:14:43 03/26/2014 16:49:19 Benign essential hypertension 6300159 Mixed hyperlipidemia 167854055 Uncontroll ed type 2 diabetes mellitus 097358787 Renal diso rder due to type 2 diabetes mellitus 686919936 Benign par oxysmal positional vertigo 008556914 [id number] Gloria Murphy [facility], [address] [address] 04/04/2014 13:14:50 04/04/2014 15:08:28 Uncontrolled type 2 diabetes mellitus 948780326 -continue metformin 1g 2x/d -stop glyburide, change to glipizide 10mg 2x/d -start victoza 0.6 mg once daily for 1 week; then increase to 1.2 mg once daily Obesity 394355392 Essential hypertension 58238776 -lisinopri l Mixed hyperlipidemia 947372989 -lovastati n [id number] Taisha Johnston Physical Therapy, [address] [place] [address] 04/16/2014 16:18:50 04/17/2014 08:27:41 Benign paroxysmal positional vertigo 572008366 [id number] Taisha Johnston Physical Therapy, [address] [place] [address] 1 2014 12:01:49 2014 13:34:38 Benign paroxysmal positional vertigo 880793153 [id number] [facility] [address] [place] [address] 05/04/2014 13:01:46 05/04/2014 14:08:08 Uncontrolled type 2 diabetes mellitus 316377390 -continue metformin 1g 2x/d -continue glipizide 10mg 1 x/d, may decrease to 1/2 tab daily if less than 100mg/dL after taking this medicine and then stop if still less than 100mg/dL -continue victoza 1.2 mg subcut once daily, may then decrease and stop if regularly less than 100mg/dL Obesity 303234820 Essential hypertension 14274450 -lisinopri l Mixed hyperlipidemia 447621807 -lovastati n [id number] [facility], OFFICE [address] [place] [address] 06/06/2014 08:18:24 06/08/2014 08:28:39 Excessive cerumen in ear canal 047954627 recurrence [id number] Joahnne Maribel , [facility], OFFICE [address] [place] [address] 6 08/13/2014 16:22:39 08/13/2014 17:04:10 Benign essential hypertension 9302417 Mixed hyperlipidemia 147677420 Type 2 sailaja betes mellitus without complication 457417985 [id number] JUANIS Farfan [facility], OFFICE [address] [place] [address] 11/14/2014 16:22:50 11/14/2014 16:48:58 Pain in right lower limb 712873895 upper leg, post fall on ice 2-3 months, not fulle recovered, will refer to PT for further evaluation , advised to use ice alternatin g w/heat x 20 m. X 3-4 x/day, Ibuprofen 200 mg 3 tabs TID for the next 7-10d, take w/food, F/U PRN, may need further evaluation w/Orthoped ist, agrees w/plan. [id number] Jumana Johnson MA , [facility], OFFICE [address] [place] [address] 12/10/2014 16:14:55 12/10/2014 16:41:53 Mixed hyperlipidemia 113815078 Benign ess ential hypertension 9031729 Type 2 sailaja betes mellitus without complication 837301466 Obesity 162857740 [id number] Mary Kate Weir MD , [facility], OFFICE [address] [place] [address] 03/07/2015 16:40:20 03/08/2015 11:19:32 Lifestyle 393628551 Impacted cerumen 95245915 bilateral impacted cerumen, rinsed out with resolution . [id number] Wallace Sweet MD , [facility], OFFICE [address] [place] [address] 07/08/2015 08:36:19 07/08/2015 09:15:01 Mixed hyperlipidemia 564583686 E78.2 Benign ess ential hypertension 5086451 I10 Uncontroll ed type 2 diabetes mellitus 382914923 E11.65 Acute situ ational disturbance 503379112 F43.20 Chest pain 81209901 R07. 9 [id number] Wallace Sweet MD , [facility], OFFICE [address] [place] [address] 10/07/2015 16:18:20 10/07/2015 16:49:45 Benign essential hypertension 0033552 I10 . Mixed hyperlipidemia 267 507922 E78.2 continue to work on diet and exercise as discussed Uncontroll ed type 2 diabetes mellitus 247964673 E11.65 Obesity 467261071 E66.9 Impotence 461710583 N52. 9 [id number] Sarika Rose RN, BSN, [facility] , [address] [address] 10/16/2015 15:17:49 10/16/2015 16:45:28 Uncontrolled type 2 diabetes mellitus 157697510 E11.65 [id number] Kaye Zhao, JUANIS-AIDA , [facility], OFFICE [address] [place] [address] 12/17/2015 10:18:10 12/18/2015 10:57:34 Impacted cerumen 06923411 H61.23 irrigated without issue in clinic. [id number] Wallace Sweet MD , [facility], OFFICE [address] [place] [address] 01/06/2016 15:21:50 01/06/2016 16:18:35 Benign essential hypertension 3384399 I10 Blood pressure at goal Mixed hyperlipidemia 267 221087 E78.2 continue to work on diet and exercise as discussed Uncontroll ed type 2 diabetes mellitus 301479272 E11.65 [id number] Sarika Rose RN, BSN, [facility] , [facility] [address] [facility] [place] [address] 01/15/2016 15:14:26 01/21/2016 12:10:03 Uncontrolled type 2 diabetes mellitus 792956275 E11.65 Met with Wilberto today for diabetes [...] of regular physical activity on blood sugars. [id number] Sarika Rose RN, BSN, [facility] , [facility] [address] [place] [address] 03/11/2016 14:57:26 03/11/2016 16:55:46 Uncontrolled type 2 diabetes mellitus 042807409 E11.65 Met with Wilberto today for follow [...] limiting cardiovasc ular risk. Other strategies for [facility] heart health. [id number] Wallace Sweet MD , [facility], OFFICE [address] [place] [address] 6 04/28/2016 08:47:08 04/28/2016 10:07:36 Adult health examination 233564678 Z00.00 see Risk Assessment and Lifestyle Change Counseling section above Counseling 145307103 Z71 .9 Mixed hyperlipidemia 267 559122 E78.2 continue to work on diet and exercise as discussed Uncontroll ed type 2 diabetes mellitus 273154052 E11.65 Impotence of organic origin 653097402 N52.9 Family his tory of malignant neoplasm of thyroid 388426051 Z80.8 [id number] Erna Villalpando, OD Eye Care, [facility] [address] [place] [address] 06/03/2016 14:09:37 06/03/2016 16:01:10 Type 2 diabetes mellitus without complication 670738834 E11.9 uncontroll ed, no diabetic retinopath y OU, pt ed, encouraged good BS control to maintain good eye health and vision. RTC 1 yr CEE or sooner with vision changes. [id number] Wallace Sweet MD , [facility], OFFICE [address] [place] [address] 08/04/2016 08:48:09 08/04/2016 09:18:49 Benign essential hypertension 6730041 I10 Mixed hyperlipidemia 267 064317 E78.2 Uncontroll ed type 2 diabetes mellitus 441305066 E11.65 Disorder o f nervous system due to type 2 diabetes mellitus 099370576 E11.40 Overweight 600845122 E66 .3 [id number] Sarika Rose RN, BSN, [facility] , [facility] [address] [place] [address] 09/01/2016 15:35:52 09/02/2016 09:08:30 Uncontrolled type 2 diabetes mellitus 482744936 E11.65 Met with Wilberto today for follow up of his diabetes education, kindly referred by Dr. Sweet. Wilberto has had diabetes for about 10 years now. Most recently, his A1C was 10.2% in [facility]. We reviewed how he has [...] limiting cardiovasc ular risk. Other strategies for [facility] heart health. [id number] John Luna MD FP, [facility], OFFICE [address] [place] [address] 09/19/2016 13:00:28 09/19/2016 15:23:49 Impacted cerumen 42878083 H61.23 Otalgia 88440690 H92.03 likley due to cerumen [id number] Mani Padron MD FP, [facility], OFFICE [address] [place] [address] 11/23/2016 11:29:28 11/24/2016 13:05:04 Acute bronchitis 35131997 J20.9 OOW for 2 days , tessalon perles, rest, liquids [id number] Wallace Sweet MD , [facility], OFFICE [address] [place] [address] 11/24/2016 08:39:51 11/24/2016 09:46:06 Benign essential hypertension 8611300 I10 Mixed hyperlipidemia 267 038727 E78.2 Uncontroll ed type 2 diabetes mellitus 659499947 E11.65 [id number] Sarika Rose RN, BSN, [facility] , [facility] [address] [place] [address] 01/05/2017 14:22:22 01/11/2017 14:06:39 Uncontrolled type 2 diabetes mellitus 815702744 E11.65 Met with Wilberto today for follow [...] more. He reports he is flying to [place] in 2 weeks and is nervous about [...] once we decide what to prescribe him. [id number] Wallace Sweet MD , [facility], OFFICE [address] [place] [address] 03/08/2017 16:58:56 03/08/2017 17:43:47 Benign essential hypertension 7918884 I10 Mixed hyperlipidemia 267 827704 E78.2 Uncontroll ed type 2 diabetes mellitus 660556113 E11.65 [id number] Sarika Rose RN, BSN, [facility] , [facility] [address] [place] [address] 03/16/2017 15:32:36 03/18/2017 08:48:45 Uncontrolled type 2 diabetes mellitus 325389512 E11.65 Met with Wilberto today for follow [...] testing often. He reports his trip to [place] went well during the summer when he was nervous he would eat too much food while he was away. He was at a wedding. He reports he tends to gain 15 lbs when he is in [place] and this was the first trip he did not gain any weight because he continued to be careful while he was away. He continues to takeMetfor min 1,000 mg BID, Glipizide 10 mg BID and Victoza 1.8 mg QD. He was encouraged [facility] and [facility]. He was encouraged [...] of regular physical activity on blood sugars. [id number] Wallace Sweet MD , [facility], OFF[address] [place] [address] 07/13/2017 14:38:02 07/14/2017 08:06:17 Benign essential hypertension 2743480 I10 Mixed hyperlipidemia 267 297984 E78.2 Uncontroll ed type 2 diabetes mellitus 835599987 E11.65 [id number] JUANIS Farfan , [facility], OFF[address] [place] [address] 07/19/2017 09:59:16 07/19/2017 11:23:32 Screening for malignant neoplasm of colon 755453841 Z12.11 Referral for a DIRECT booked colonoscop y. This patient is a healthy ASA Class 1 or 2 patient (only mild systemic disease), or a STABLE, well controlled insulin dependent diabetic. They do not have serious cardiac disease ie CT/angiopl asty within 1 year, symptomati c CHF; renal failure with CKD 4 or 5; take Coumadin, Plavix, Aggrenox, etc. Acholic stool 96665300 R 19.5 Abnormal colored elif, labs & US ordered as written below, further treatment pending results. Impacted cerumen 4017454 6 H61.23 Both ears successful ly cleared of cerumen. Advised to use Debrox gtts. to keep ears patent. [id number] Lauren Khan NP , [facility], OFFICE [address] [place] [address] 09/27/2017 11:53:22 09/28/2017 09:35:28 Acute bronchitis 42464031 J20.9 Reassured. Lungs completely clear. Enc force fluids, steam inhalation prn, adequate rest. OK to continue otc cold/cough meds prn for symptom management . F/u here if not gradually improving, symptoms worsening, especially if develops fevers or increased SOB. Codeine cough syrup prn primarily for night time use. Warned can cause drowsiness . [id number] Tata Silva PA-C , [facility], OFFICE [address] [place] [address] 10/01/2017 14:36:18 10/01/2017 16:03:25 Acute low back pain 194518523 M54.5 09/25 came out with cold/bronc hitis [...] alternate hot/cold packs. follow up 4-5 days. [id number] John Luna MD , [facility], [address] [place] [address] 11/13/2017 09:44:36 11/13/2017 11:25:52 Dysfunction of eustachian tube 82874230 H69.91 supportive care f/u if not improved in 2-3 weks [id number] Lauren Khan NP , [facility], OFF[address] [place] [address] 01/07/2018 14:46:25 01/10/2018 08:54:41 Hearing loss 11667105 H91.91 Impacted cerumen 2901151 6 H61.23 Nurse in as above. TM's [...] phone next week. Consider ENT/audiol ogy referral. [id number] Wallace Sweet MD , [facility], [address] [place] [address] 04/19/2018 13:34:53 04/19/2018 14:18:10 Benign essential hypertension 6942993 I10 Mixed hyperlipidemia 267 220065 E78.2 Uncontroll ed type 2 diabetes mellitus 395587784 E11.65 Hearing loss 35643470 H9 1.91 Anxiety 30315808 F41.9 [id number] Sarika Rose, RN, BSN, [facility] , [facility] [address] [place] [address] 06/27/2018 08:42:53 07/04/2018 09:48:45 Uncontrolled type 2 diabetes mellitus 672934132 E11.65 Met with Wilberto clark for follow [...] of regular physical activity on blood sugars. [id number] Sarika Rose RN, BSN, [facility] , [facility] [address] [place] [address] 08/02/2018 07:50:46 08/02/2018 11:32:49 Uncontrolled type 2 diabetes mellitus 043936354 E11.65 Met with Wilberto clark for follow [...] Other strategies for maintainin g heart health. [id number] Erna Villalpando, [facility], [facility] [address] [place] [address] 08/02/2018 09:03:25 08/02/2018 15:56:51 Type 2 diabetes mellitus without complication 885030319 E11.9 uncontroll ed, no diabetic retinopath y OU, pt ed, encouraged good BS control to maintain good eye health and vision. RTC 1 yr CEE or sooner with vision changes. [id number] POORNIMA Willis , [facility], [address] [place] [address] 10/05/2018 13:03:14 10/06/2018 08:27:14 Uncontrolled type 2 diabetes mellitus 967049584 E11.65 Pt to do labs, f/u w/ PCP in the next month Active or passive immunization 291101936 Z23 Pt declined TD for today despite knowing the risk of disease and Mixed hyperlipidemia 267 530086 E78.2 Pt to have labs done and schedule w/ PCP within the next month- discussed goal is LDL < 100 Impacted cerumen 6218759 6 H61.23 Bilateral impacted cerumen- ear lavage done Essential hypertension 20084620 I10 Pt to have labs done and schedule w/ PCP within the next month Neuropathy due to diabetes mellitus 832798853 E11.40 pt states- chronic- reviewed improved control of BS's will decrease symptoms. [id number] Wallace Sweet MD FP, [facility], [address] [place] [address] 03/30/2019 08:30:29 03/30/2019 09:12:31 Mixed hyperlipidemia 824285703 E78.2 Active or passive immunization 955178310 Z23 Benign ess ential hypertension 8565810 I10 Neuropathy due to diabetes mellitus 156657187 E11.40 Uncontroll ed type 2 diabetes mellitus 714277366 E11.65 [id number] Sarika Rose RN, BSN, [facility] , [address] [address] 05/04/2019 08:44:36 05/05/2019 12:08:07 Uncontrolled type 2 diabetes mellitus 235706757 E11.65 Met with Wilberto today for follow [...] limiting cardiovasc ular risk. Other strategies for [facility] heart health. [id number] Gloria Leonard MD , [facility], [address] [place] [address] 05/23/2019 10:04:58 05/23/2019 15:19:11 Active or passive immunization 987573471 Z23 Asymmetric al sensorineural hearing loss 591546228 H90.5 pt will call for appt- printed the referral from Dr Sweet earlier this year so he can callhe never followed updoes not feel sx have changed Impacted c erumen of bilateral ears 6398081593 725453 H61.23 irrigation todaycompl etely cleared after several attempts [id number] John Luna MD , [facility], [address] [place] [address] 07/06/2019 08:16:55 07/06/2019 13:42:42 Acute upper respiratory infection 19968958 J06.9 Educated patient that URI is a [...] or failure to resolve in 2-4 weeks. [id number] Sarika Rose RN, BSN, [facility] , [address] [address] 07/12/2019 13:14:32 07/17/2019 11:36:40 Uncontrolled type 2 diabetes mellitus 368939277 E11.65 Met with Wilberto and his today [...] insulin on his own at this point.-Edgar Sweet a message to notify him of this incase pt needs to hear this from his own physician. Reviewed the following: Reviewed how diabetes is progressiv e and medication s irrigation equipment remover time (which includes insulin). Monitoring : Appropriat e times to test blood sugar and target blood sugars. Physical Activity : Introducti on to its importance . Effects of regular physical activity on blood sugars. Chronic Complicati ons: Introducti on to long-term effects, Importance of ABCs (A1c, Blood pressure and Cholestero l control) in limiting cardiovasc ular risk. Other strategies for [facility]. Reviewed the benefits of insulin and how he will need a long acting insulin before we start him on meal time insulin. [id number] Sarika Rose RN, BSN, [facility] , [facility] [address] [place] [address] 08/23/2019 12:54:55 08/23/2019 15:28:53 Uncontrolled type 2 diabetes mellitus 006699571 E11.65 Met with Wilberto and his today for diabetes education, kindly referred by Dr. Sweet.-He has had diabetes for about 10 years now.-Just arrived last week from [place]. No fever, no cough. -Last A1C was [...] 2 days). 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 He is not able to check glucose on long shift days. -He has been jogging on his off days. He runs 2 days one week and 5 days the next week. -He injured his left side near his ribs, 2 Saturdays ago, he was bowling and it was [...] diabetes is progressiv e and medication s irrigation equipment remover time (which includes insulin). Monitoring : Appropriat e times to test blood sugar and target blood sugars.Chr onic Complicati ons: Introducti on to long-term effects, Importance of ABCs (A1c, Blood pressure and Cholestero l control) in limiting cardiovasc ular risk. Other [facility]. [id number] Montserrat Anand PA-C , [facility], [address] [place] [address] 08/24/2019 10:34:06 08/24/2019 17:49:12 Rib pain 355129774 R07.81 s/p fall. Advised compressio n brace and ibuprofen. RTC for worsening pain. [id number] Sarika Rose RN, BSN, [facility] , [facility] [address] [place] [address] 10/19/2019 09:06:19 10/20/2019 09:04:53 Uncontrolled type 2 diabetes mellitus 993439112 E11.65 -Virtual Appt via [email or web address] due to COVID-19 pandemic.- Kindly referred by [...] limiting cardiovasc ular risk. Other strategies for [facility]. Long acting insulin such as Lantus or Basaglar and the benefits for his blood sugars. [id number] Sarika Rose RN, BSN, [facility] , [facility] [address] [place] [address] 11/30/2019 10:15:19 12/01/2019 09:18:58 Uncontrolled type 2 diabetes mellitus 646365196 E11.65 -Virtual Appt via phone due to COVID-19 pandemic. He was on about to go running. Appt was short over the phone.-Kin dly referred by Dr. Sweet for diabetes education. [...] that the provider location is not at [facility] Patient location: home During the visit the patient? s medical history and medical record were reviewed. The patient was notified to call our office for worsening or urgent symptoms. [id number] Wallace Sweet MD , [facility], [address] [place] [address] 03/22/2020 10:46:30 03/25/2020 09:35:39 Mixed hyperlipidemia 218736919 E78.2 Essential hypertension 96255505 I10 Uncontroll ed type 2 diabetes mellitus 805273290 E11.65 [id number] ALAN Marcus, [facility], [address] [place] [address] 06/13/2020 10:08:22 06/17/2020 10:27:30 Muscle pain 77269164 M79.10 advised ample rest and hydration and gentle movement. RTC for worsening/ persisting sx. [id number] ALAN Marcus, [facility], [address] [place] [address] 06/25/2020 14:01:39 06/26/2020 13:07:05 COVID-19 [id number] U07.1 Right sided headache lingering. No red flags. Advised ample rest, hydration , OTC migrelief. F/U in 1 week or sooner for worsening sx. [id number] ALAN Marcus, [facility], [address] [place] [address] 07/02/2020 11:31:22 07/03/2020 14:29:04 SARS-CoV-2 [id number] U07.1 MEDINA has resolved. Asymptomat ic. Back at work. RTC for concerning sx. [id number] Sarika Rose RN, BSN, [facility] , [address] [address] 08/22/2020 09:04:35 08/22/2020 10:47:49 Uncontrolled type 2 diabetes mellitus 300661968 E11.65 -Virtual Appt via phone due to COVID-19 pandemic. He could not hear the provider when we tried [place] [facility]. -Kindly referred by Dr. Sweet for [...] 180 mg/dl. -He watched on Youtube that watermaster use of Metformin causes B12 deficiency , [...] doing it correctly when he started it. [id number] Wallace Sweet MD , [facility], [address] [place] [address] 12/30/2020 10:35:47 12/30/2020 11:37:27 Mixed hyperlipidemia 050757332 E78.2 Essential hypertension 29147622 I10 Neuropathy due to diabetes mellitus 495014956 E11.40 [id number] Sarika Rose RN, BSN, [facility] , [facility] [address] [place] [address] 01/28/2021 08:11:07 01/31/2021 15:37:06 Uncontrolled type 2 diabetes mellitus [id number] E11.65 -Virtual Appt via [employer] due to COVID-19 pandemic. -Kindly referred by [...] his glucose more often. Concerned about his watermaster affects of diabetes, as he has been elevated with high A1C for many years. He likely needs short acting insulin with meals. Will discuss with Dr. Sweet about starting Humalog or Novolog. Did not get a chance to discuss this with Wilberto today and will discuss this at our next visit. [id number] Wallace Sweet MD , [facility], [address] [place] [address] 04/03/2021 08:49:27 04/03/2021 09:15:23 Essential hypertension 17447682 I10 Mixed hyperlipidemia 267 262252 E78.2 Uncontroll ed type 2 diabetes mellitus 034887185 E11.65 [id number] Sarika Rose, RN, BSN, [facility] , [facility] [address] [place] [address] 04/08/2021 09:03:28 04/10/2021 12:59:38 Uncontrolled type 2 diabetes mellitus 338376850 E11.65 -Virtual Appt via [employer]Pay due to COVID-19 pandemic. -Kindly referred by [...] it. He bought a toe guard from [employer]. At one point, he had to get custom made, from [employer] (about 10 years ago). As soon as [...] down blood sugars. FU in 1 month. 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 refer to retina. 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 No DR OS. No CSME OU. Presbyopia 20682000 H52. 4 ok to cont with OTC readers. [id number] Sarika Rose, RN, BSN, [facility] , [facility] [address] [place] [address] 07/14/2021 09:09:17 07/15/2021 09:52:12 Uncontrolled type 2 diabetes mellitus 043591333 E11.65 -Virtual Appt via over the phone due to COVID-19 pandemic. Pt. tried connecting to SlidePay, however, it would not connect (he has [...] wax in the past. Tried to call [facility] to have it removed, however, was told that [facility] is no longer doing this. About 3 [...] in the past. Wants to see a order checker packer processer for it. There is a referral for a order checker packer processer from 04/03, encouraged he call to schedule an appt. -Asked about sensors, and discussed how he does not currently qualify for a sensor based on Medicare/[employer] edicaid strict guidelines with sensors. However, his [...] this month. Schedule an appt with the order checker packer processer . Call insurance to find out if [...] requiremen ts to go on a sensor. [id number] Wilberto Ivan DPM Podiatry, [facility] [address] [place] [address] 08/05/2021 10:29:51 08/05/2021 11:30:28 Disorder of nervous system due to type 2 diabetes mellitus 547254455 E11.49 Pronation of foot 688331 03 M21.6X9 [id number] Sarika Rose, RN, BSN, [facility] , [facility] [address] [place] [address] 09/16/2021 10:02:55 09/19/2021 11:05:31 Uncontrolled type 2 diabetes mellitus 152681553 E11.65 -Virtual Appt via over [employer] for diabetes education. -Kindly referred by Dr. [...] sugars available due to losing his glucometer .5- F: 1444/4- F: 121; BD: 1474/3- F: 147; BD: 1584/2- F: 156; BD: 1684/1- F: 119; BD: 158/31- F: 169; BD: 1573/30- F: 180; BD: [...] guard for his large calluses. Saw a order checker packer processer and was told it was due to [...] until fasting glucose are below 130 mg/dl. [id number] , [facility], [address] [place] [address] 12/01/2021 10:39:30 12/01/2021 11:12:28 Adult health examination 316833605 Z00.00 see Risk Assessment and Lifestyle Change Counseling section above Counseling 553080820 Z71 .9 including cardivascu lar risk reduction counseling Depression screening 171 804877 Z13.31 depression screening tool administer ed, entered into emr, scored and discussed, time greater than 7.5 minutes Screening for alcohol abuse 281561148 Z13.39 Essential hypertension 10073518 I10 Mixed hyperlipidemia 267 888377 E78.2 Active or passive immunization 590703252 Z23 Uncontroll ed type 2 diabetes mellitus 106577005 E11.65 Impacted c erumen of bilateral ears 1653699988 382388 H61.23 [id number] Sarika Rose, RN, BSN, [facility] , [facility] [address] [place] [address] 12/24/2021 09:05:34 01/05/2022 16:28:55 Uncontrolled type 2 diabetes mellitus 041563773 E11.65 -Virtual Appt via over [employer] today for diabetes education. -Kindly referred by [...] diarrhea. -Has blood sugars available to review today.-Samantha d them off over the phone:12/24 - F: 14812/23- F: 128; BD: 15212/22- F: 151; BD: 16212/21- F: 168; BD: 13312/20- F: 171; BD: - F: 201; BD: - F: 187; BD: 168/6- F: 188; BD: 158/- F: 165; BD: 151 -No hypoglycem ia reported. -He does not eat after 1 pm. He gets home by 7:30 pm and will have dinner. He will have tonic water on his 5:30 pm break. 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 He gets calluses on his big toe. He has flat feet and this causes the calluses. He puts a toe guard on them when walking.-Makayla jose exam was a year ago. He went to [facility] eye doctor. He was told that he might have a retinal detachment however, he saw a specialist and they did find any problems. -He can tell when his body does not feeling right, therefore, he knows that he is going hypoglycem ic. -Have sent RX for Freestyle Pushpa in the past, along with the Dexcom sensor, however, pt has not received either sensor. Pt. would make a great candidate for the sensor since his diabetes is so poorly controlled and he is taking insulin at least once a day. -PLAN: Called Pharmacy and they said that Dexcom is not covered at [facility], however, it is worth calling insurance to find out if it is covered with a DME and how much is the co-pay. The Freestyle Pushpa sensor is covered with [facility], however the co-pay is $100 per month. Pt.'s blood sugars are improved since he is watching his diet, however, his A1C was 12% in November and has been above 9-10% for years therefore, he is really in need of short acting insulin to avoid watermaster complicati ons. Sent a message to Dr. Sweet about starting a small dose of Humalog or Novolog 5 units with each meal. Pt. does not currently have watermaster complicati ons. Reviewed how insulin puts him [...] and the preferred DME is [facility]. 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 mild NPDR OU, trace ME OS. new finding. PED resolved OS. refer to retina in 1-2 weeks. [id number] Sarika Rose RN, BSN, [facility] , [address] [address] 01/21/2022 09:03:01 01/21/2022 12:26:35 Uncontrolled type 2 diabetes mellitus 320128980 E11.65 -Virtual Appt via over [employer] for diabetes education. -Kindly referred by Dr. [...] connect his Freestyle Pushpa 2 sensor to [facility] [employer] account today. Download of sensor reveals:-A verage [...] prevent insulin from stacking. -Now on the [employer] Pushpa 2 sensor and had trouble with [...] he has eaten something. FU in February. [id number] Sarika Rose, RN, BSN, [facility] , [address] [address] 02/18/2022 09:43:48 02/18/2022 10:30:23 Uncontrolled type 2 diabetes mellitus 861532664 E11.65 -Virtual Appt via over the phone [...] burp and he had diarrhea. -Connected to [employer] and able to review his download today: [...] appt in person. FU in 1 month. [id number] Sarika Rose RN, BSN, [facility] , [facility] [address] [place] [address] 04/02/2022 10:05:34 04/02/2022 13:10:29 Uncontrolled type 2 diabetes mellitus 410454371 E11.65 -Virtual Appt via [employer] today. -Kindly referred by Dr. Sweet. -He [...] mg/dl.Carb ohydrate Ratio: 5 grams -Connected to [employer] and able to review his download today: [...] in 1 month to review sensor download. [id number] Mary Kate Weir MD , [facility], [address] [place] [address] 04/06/2022 10:40:31 04/06/2022 16:07:56 Tinnitus of left ear 7066716989 106 H93.12 Temporoman dibular joint disorder 92688320 M26.609 you can use both ibuprofen and [...] the area hurts more 2 hours after. [id number] , [facility], [address] [place] [address] 06/18/2022 13:48:25 06/18/2022 14:18:13 Uncontrolled type 2 diabetes mellitus 607727090 E11.65 stressed importance of controllin g sugars or wounds will not healat risk of losing toes if we arent aggressive check a1c today, will call pt with results and possible med adjustment Diabetic foot ulcer 1540 15775 E13.621 start abx, refer to wound caresee above [id number] Sheri Mata MD , [facility], [address] [place] [address] 07/22/2022 14:28:48 07/22/2022 15:55:20 Uncontrolled type 2 diabetes mellitus 743089924 E11.65 stressed importance of controllin g sugars or wounds will not healat risk of losing toes if we arent aggressive last a1c 10.7contin ue meds, pt aggressive ly managingre peat a1c september, see me afterdior grace message sent with info on nutrition consult name and number Diabetic foot ulcer 3710 75399 E13.621 slowly improvemen tcontinue with wound care [id number] Sheri Mata MD FP, [facility], [address] [place] [address] 08/10/2022 07:40:22 08/10/2022 08:42:21 Uncontrolled type 2 diabetes mellitus 019903022 E11.65 stressed importance of controllin g sugars [...] per month Neuropathy due to diabetes mellitus 778657756 E11.40 as above Diabetic foot ulcer 3710 38483 E13.621 slowly improvemen tcontinue with wound careMRI pending to rule out osteomyeli tis [id number] Sheri Mata MD FP, [facility], [address] [place] [address] 09/21/2022 14:38:30 09/21/2022 16:20:39 Essential hypertension 06019255 I10 well controlled on med Uncontroll ed type 2 diabetes mellitus 978582061 E11.65 a1c down to 7.9!contin ue diet, exercisewi ll back down lantus to avoid lows overnightc ontinue humalogrep eat labs, see me 3 monthsi will research berberine for safety Diabetic foot ulcer 3710 15982 E13.621 slowly improvemen tcontinue with wound care Health Concerns Section Related Observation LastModified by Organization Detai ls LastModified Time None Recorded Concern Status LastModified by Organization Details LastModified Time None Recorded Advance Directives Directive N: Payers Encounter Date Sequence Insurance Name Policy Number Policy Orozco Covered Member ID Orozco Member ID Guarantor Name 04/06/[address] [facility] [id number] 1 Wilberto Diegoand [id number] Wilberto Aquino Zoraida 06/18/[address] [facility] [id number] 1 Wilberto Diegoand [id number] Wilberto Aquino Zoraida 07/22/[address] [facility] [id number] 1 Wilberto Diegoand [id number] Wilberto Aquino Zoraida 08/10/2022 1 [facility]) [id number] 1 Wilberto Aquino [facility] [id number] Wilberto Aquino [facility] 09/21/2022 1 [facility]) [id number] 1 Wilberto Aquino [facility] [id number] Wilberto Aquino [facility] Notes Date Note Type Note Provider Name and Address Organization Details Recorded Time 04/06/2022 text/html Pt reports L artur e ear and jaw pain ongoing about 2 wks, feels like he can hear constant humming in L ear, Denies drainage or swelling. Pain is worse when he opens his mouth. Mary Kate Weir MD [address] [place] [address], [phone], [facility] 04/06/2022 11:43:41 06/18/2022 text/html Foot issues. Big toe on both feet. Calluses. Blood blisters. presents to discuss feet. Has to wear steel toed shoes at work and now toes have painful blisters. Not checkin sugars. Taking meds as listed Sheri Mata MD [address] [place] [address], [phone], [facility] 06/18/2022 14:22:38 07/22/2022 text/html Patient presents to the office today for f/u on sore on foot. for followup foot ulcer and DM. Sugars mostly under 150. Taking meds as listed. WOrking hard on controlling.Seeing wound care, foot healing slowlyHasnt heard about nutrition consult Sheri Mata MD [address] [place] [address], [phone], [facility] 07/22/2022 14:59:41 08/10/2022 text/html Patient presents to [...] 3-4 times per day Sheri Mata MD [address] [place] [address], [phone], [facility] 08/10/2022 08:23:38 09/21/2022 text/html for followup DM. Working very hard. Taking 50 lantus HS and 30 humalog with meals. Has been having lows in middle of night.Seeing wound care for foot. Had a setback, Was casted and caused infection, on two abx nowread about berberine, herb used in [place] for DM, wonders if can tryhad colon last week, normal Sheri aMta MD [address] [place] [address], [place], [address], [facility] 09/21/2022 15:30:10
== END 2024-08-07 10:33 | disposition home or self-care (01) ==
PROVIDERS: PCP Internal Medicine
DX: E11.65 Type 2 diabetes mellitus with hyperglycemia (principal); R94.39 Abnormal result of other cardiovascular function study; R03.0 Elevated blood-pressure reading, without diagnosis of hypertension; E78.00 Pure hypercholesterolemia, unspecified; E66.9 Obesity, unspecified; Z68.31 Body mass index [BMI] 31.0-31.9, adult

== ENCOUNTER → 2024-08-07 09:38 | Outpatient (BNVA) | payer OTHER, SELFPAY | PROVIDERS: PCP Internal Medicine | DX: R94.39 Abnormal result of other cardiovascular function study (principal); E11.65 Type 2 diabetes mellitus with hyperglycemia; R03.0 Elevated blood-pressure reading, without diagnosis of hypertension; E78.00 Pure hypercholesterolemia, unspecified; E66.9 Obesity, unspecified; Z68.31 Body mass index [BMI] 31.0-31.9, adult | CPT/HCPCS: 83036; 96127 ==

== ENCOUNTER 2024-08-26 07:20 | Outpatient (REF) | payer OTHER, SELFPAY ==
--- OUTSIDE RECORDS SUMMARY | 2024-08-26 07:22 | XMS_ITS | Data Portability ---
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 Lab HbA1c (hemoglobin A1c), blood 2022 023 [facility], [address] [place], [address], 3 11:02:52 microalbumi n/creatinin e, ratio panel, urine 2022 023 [facility], [address] [place], [address], 3 12:27:09 Referral wound care referral - DM foot ulcers, both great toes 2022 023 [email or web address] Hammonds [facility], [address] [place] [address] [place], [address], 3 10:12:51 nutritionis t/dietitian referral 2022 023 [email or web address] Suze Whipple, [address] [place] [address] [place], [address], 3 10:49:02 otolaryngol ogist referral - tinnitus and TMJ same side; please eval and Rx as needed 2021 022 [email or web address] Dunia Burkett MD, [address] [place], [address], 2 11:14:12 Procedures None recorded. Surgeries None recorded. Imaging None recorded. Medication Orders cephalexin 500 mg tablet 2022 023 [facility], [address] [place] [address], [place], [address], 14:38:26 Patient TargetsNo targets recorded. Patient InstructionsNo instructions recorded. 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 Peer Support Specialist Referral fo r Tinnitus of left ear tinnitus and TMJ same side; please eval and Rx as needed Referring Physician: Mary Kate Weir, Family Medicine, Encounter Date: 04/06/2022 DM foot ulcers, both great t oes Referring Physician: Sheri Mata [facility], Encounter Date: 06/18/2022 Program Technician/dietitian Refer ral for Uncontrolled type 2 diabetes mellitus Referring Physician: Sheri Mata [facility] Medicine, Encounter Date: 06/18/2022 Results Created Date Observation Date Name Description Value Unit Range Abnormal Flag Note LastModifiedBy Organization Detail LastModifiedTime 06/18/1906/19/2022 COMP. METAB OLIC PANEL glucose 262 mg/dL 70-100 high Not Available [address], [address], 06/19/2022 11:00:07 06/18/19 23 06/19/2022 COMP. METAB OLIC PANEL BUN 13 mg/dL 7-18 Not Available [address], [address], 06/19/2022 11:00:07 06/18/19 23 06/19/2022 COMP. METAB OLIC PANEL creatinine 1.0 mg/dL 0.8-1. 3 Not Available [address], [address], 06/19/2022 11:00:07 06/18/19 23 06/19/2022 COMP. METAB OLIC PANEL B/C 13.0 ratio Not Available [address], [address], 06/19/2022 11:00:07 06/18/19 23 06/19/2022 COMP. METAB [...] be used in pregn valentina. Not Available [address], [address], 06/19/2022 11:00:07 06/18/19 23 06/19/2022 COMP. METAB OLIC PANEL sodium 140 mmol/ L 136-14 5 Not Available [address], [address], 06/19/2022 11:00:07 06/18/19 23 06/19/2022 COMP. METAB OLIC PANEL potassium 5.0 mmol/ L 3.5-5. 1 Not Available [address], [address], 06/19/2022 11:00:07 06/18/19 23 06/19/2022 COMP. METAB OLIC PANEL chloride 101 mmol/ L 96-107 Not Available [address], [address], 06/19/2022 11:00:07 06/18/19 23 06/19/2022 COMP. METAB OLIC PANEL anion gap 7.6 5.0-15 .0 Not Available [address], [address], 06/19/2022 11:00:07 06/18/19 23 06/19/2022 COMP. METAB OLIC PANEL CO2 31 mmol/ L 21-32 Not Available [address], [address], 06/19/2022 11:00:07 06/18/19 23 06/19/2022 COMP. METAB OLIC PANEL calcium 9.2 mg/dL 8.5-10 .3 Not Available [address], [address], 06/19/2022 11:00:07 06/18/19 23 06/19/2022 COMP. METAB OLIC PANEL total protein 7.2 g/dL 6.4-8. 2 Not Available [address], [address], 06/19/2022 11:00:07 06/18/19 23 06/19/2022 COMP. METAB OLIC PANEL albumin 4.2 g/dL 3.4-5. 0 Not Available [address], [address], 06/19/2022 11:00:07 06/18/19 23 06/19/2022 COMP. METAB OLIC PANEL globulin 3.0 g/dL Not Available [address], [address], 06/19/2022 11:00:07 06/18/19 23 06/19/2022 COMP. METAB OLIC PANEL A/G 1.4 ratio 0.8-2. 0 Not Available [address] [place], [address], 06/19/2022 11:00:07 06/18/19 23 06/19/2022 COMP. METAB OLIC PANEL total bilirubin 0.80 mg/dL 0.00-1 .00 Not Available [address], [address], 06/19/2022 11:00:07 06/18/19 23 06/19/2022 COMP. METAB OLIC PANEL AST 20 U/L 0-37 Not Available [address], [address], 06/19/2022 11:00:07 06/18/19 23 06/19/2022 COMP. METAB OLIC PANEL ALT 37 U/L 6-63 Not Available [address], [address], 06/19/2022 11:00:07 06/18/19 23 06/19/2022 COMP. METAB OLIC PANEL alk. phos. 117 U/L 50-136 Not Available [address], [address], 06/19/2022 11:00:07 06/18/19 23 06/19/2022 LIPID PANEL cholesterol 191 mg/dL <200 mg/dl Maty able 200-2 39 mg/dl Borde rline High >240 mg/dl High Not Available [address], [address], 06/19/2022 11:00:09 06/18/19 23 06/19/2022 LIPID PANEL triglyceride s 289 mg/dL high LIPS= Speci men Sligh tly Lipem ic. Chem Resul ts may be effec nicole. <150 mg/dL Karley l 150-1 99 mg/dL Borde rline High 200-4 99 mg/dL High >500 mg/dL Very High Not Available [address], [address], 06/19/2022 11:00:09 06/18/19 23 06/19/2022 LIPID PANEL direct HDL 54 mg/dL <40 mg/dl - Major Risk for CHD >60 mg/dl - Negat garry Risk for CHD Not Available [address], [address], 06/19/2022 11:00:09 06/18/19 23 06/19/2022 DIREC T [...] r is not neces audrey. Not Available [address], [address], 06/19/2022 11:00:11 06/18/19 23 06/19/2022 HGB A1C [...] furth er confi rmati on Not Available [address], [address], 06/19/2022 12:22:00 06/18/19 23 06/19/2022 HGB A1C estimated average glucose 260.4 mg/dL Not Available [address], [address], 06/19/2022 12:22:00 09/13/19 23 09/14/2022 HGB A1C [...] furth er confi rmati on Not Available [address], [address], 09/14/2022 11:02:52 09/13/19 23 09/14/2022 HGB A1C estimated average glucose 180.0 mg/dL Not Available [address], [address], 09/14/2022 11:02:52 09/13/19 23 09/14/2022 MICRO ALBUM IN/CR EATIN INE RATIO PANEL , URINE microalbumin 8.0 mg/L 1.3-20 .0 Not Available [address], [address], 09/14/2022 12:27:09 09/13/19 23 09/14/2022 MICRO ALBUM IN/CR EATIN INE RATIO PANEL , URINE creatinine urine 100.6 mg/dL 30.0-1 25.0 Not Available [address], [address], 09/14/2022 12:27:09 09/13/19 23 09/14/2022 MICRO ALBUM IN/CR EATIN INE RATIO PANEL , URINE microalb/cre at ratio 8.0 mg/g_ creat 0.0-29 .0 Not Available [address], [address], 09/14/2022 12:27:09 06/10/20 22 06/10/2022 US abdom [...] wnl IVC: appear s wnl WALLACE SWEET [facility] [address], [place], [address], 06/11/2022 07:07:36 10/14/19 23 09/17/2022 colon oscop y proce dure (PROC ) No observ ation record ed. BARCODE Not Available 2022 11:32:22 Result Notes None recorded. Problems Name Problem SNOMED Code Status Onset Date Resolution Date Notes Provider Name and Address Organization Details Recorded Time Essential hypertensi on 15675057 Active Not Available [facility] 3 21:02:46 Excessive cerumen in ear canal 732463951 Active Not Available [facility] 3 21:02:46 Anxiety 58918668 Active 2016 Not Available [facility] 3 21:02:46 Neuropathy due to diabetes mellitus 123120424 Active 2018 Not Available [facility] 3 21:02:46 Mixed hyperlipid emia 792768776 Active 2006 Not Available [facility] 3 21:02:46 Internal hemorrhoid s 63098285 Completed 200205/03/2013 Not Available [facility] 3 02:03:12 Effusion of joint of shoulder region 32207398 Completed 03/27/2014 Wallace Sweet MD [address] [place] [address], [address] , [facility] 4 05:26:27 Impotence of organic origin Active 2007 Not Available [facility] 3 21:02:46 Carpal tunnel syndrome 19505748 Active 2001 Not Available [facility] 3 21:02:46 Diabetes mellitus 58218735 Completed 200603/27/2014 Wallace Sweet MD [address] [place] [address], [address] , [facility] 4 05:26:27 Disorder of bursa of shoulder region 69248337 Completed 200705/03/2013 Not Available [facility] 3 02:04:09 Temporoman dibular joint disorder 88034551 Completed 200103/27/2014 Wallace Sweet MD [address] [place] [address], [address] , [facility] 4 05:26:43 Shoulder pain 75496102 Completed 200707/29/2008 Not Available [facility] 3 03:03:47 Shoulder pain 86603012 Completed 05/03/2013 Not Available [facility] 3 02:01:00 Benign essential hypertensi on 4491610 Completed 01/19/2012 Not Available [facility] 3 03:03:47 Impacted cerumen 16877014 Completed 200005/03/2013 Not Available [facility] 3 02:02:10 Pure hyperchole sterolemia 600808592 Completed 200203/27/2014 Wallace Sweet MD [address] [place] [address], [address] , [facility] 4 05:26:27 Medial epicondyli tis 34909301 Completed 200705/03/2013 Not Available [facility] 3 02:04:00 Obesity 868412399 Active 2006 Not Available [facility] 3 21:02:46 Abdominal pain 84243747 Completed 200205/03/2013 Not Available [facility] 3 02:01:20 On examinatio n - a rash Completed 05/03/2013 Not Available [facility] 3 02:00:46 Type 2 diabetes mellitus without complicati on 358970151 Completed 03/27/2014 Wallace Sweet MD [address] [place] [address], [address] , [facility] 4 05:26:43 Type 2 diabetes mellitus without complicati on 785496808 Completed 200601/05/2012 Not Available [facility] 3 03:03:47 Hearing loss 72215491 Active 2001 Not Available [facility] 3 21:02:46 Renal disorder due to type 2 diabetes mellitus 921181442 Active 2006 Not Available [facility] 3 21:02:46 Elevated blood-pres sure reading without diagnosis of hypertensi on 515832939 Completed 200103/27/2014 Wallace Sweet MD [address] [place] [address], [address] , [facility] 4 05:26:27 Sprain of knee and leg Completed 200205/03/2013 Not Available [facility] 3 02:03:04 Uncontroll ed type 2 diabetes mellitus 212499504 Active 2007 Not Available [facility] 3 21:02:46 Scrotal varices Active 2001 Not Available [facility] 3 21:02:46 Otogenic otalgia 23032899 Completed 200105/03/2013 Not Available [facility] 3 02:03:18 Notes:Some problems listed i n Document: #[id number] could not be added to this patient's chart. Please review this document and add these problems to the patient's chart manually as needed. Problem Notes None recorded. Procedures Surgical History Date Name Laterality Status Provider Name and Address Organization Details Recorded Time 01/09/20 22 Fundus Photography completed Erna Villalpando, OD [address] [place] [address], [phone], [facility] 01/09/2022 13:35:41 04/25/20 21 Fundus Photography completed Erna Villalpando, OD [address] [place] [address], [address], [facility] 04/25/2021 09:33:54 04/25/20 21 Optical Coherence Tomography (Retina) completed Erna Villalpando, OD [address] [place] [address], [address], [facility] 04/25/2021 09:34:09 05/23/20 19 Cerumen Removal - Irrigation/Lavag e completed Anabelle Bragg [facility] 05/23/2019 11:33:23 10/06/19 19 Cerumen Removal - Irrigation/Lavag e completed Yvonne Edwards [facility] 10/05/2018 14:20:07 01/08/20 18 Cerumen Removal - Irrigation/Lavag e completed Akua Pizano LPN [facility] 01/07/2018 16:13:04 07/19/19 18 Cerumen Removal - Irrigation/Lavag e completed Mary Lott LPN [facility] 07/19/2017 11:26:34 11/25/19 17 Glucose Meter Teaching completed Akua Pizano LPN [facility] 11/24/2016 09:44:01 09/20/19 17 Cerumen Removal - Irrigation/Lavag e completed Karina Eseppi [facility] 09/19/2016 13:28:46 12/17/19 16 Cerumen Removal completed Michelle Mary LPN [facility] 12/17/2015 11:32:24 03/07/20 15 Cerumen Removal completed Viri Gomez RN [facility] 03/07/2015 17:46:53 06/06/20 14 Cerumen Removal completed Shannan VelasquezGilles CONNOLLY [facility] 06/06/2014 09:00:42 10/06/19 13 Cerumen Removal completed Michelle Mary LPN [facility] 10/05/2012 11:59:21 04/14/20 12 Other (specify) completed Domenic Collazo MD [address] [place] [address], [address], [facility] 04/04/2014 14:03:38 01/19/20 12 Cerumen Removal completed Cate Sims RN [facility] 01/19/2012 12:04:10 12/22/19 12 Treatment and Advice completed Ammy Chou OT [address] [place] [address], [address], [facility] 12/22/2011 13:00:06 08/11/19 11 Cerumen Removal completed [facility] 08/11/2010 16:18:17 10/15/19 10 Cerumen Removal completed Zo Johnston LPN [place] Irvin Cardenas y [facility] 10/14/2009 11:03:38 08/08/19 10 Aspiration Major Joint/Bursa completed Wallace Sweet MD [address] [place] [address], [address], [facility] 08/08/2009 12:04:47 06/14/19 10 Other (specify) completed Domenic Collazo MD [address] [place] [address], [phone], [facility] 04/04/2014 14:03:38 12/20/19 09 Cerumen Removal completed Marge Richey NP [address] [place] [address], [address], [facility] 12/19/2008 09:54:31 06/14/18 84 Appendectomy completed Domenic Collazo MD [address] [place], [address], [facility] 04/04/2014 14:03:38 06/14/18 71 Other (specify) completed Domenic Collazo MD [address] [place], [address], [facility] 04/04/2014 14:03:38 Imaging Results Imaging Date Name Status LastModified by Organiz ation Details LastModified Time 06/10/2022 US abdomen limited right upper quadrant completed [facility] [address] [place], [address], 06/11/2022 07:07:36 09/17/2022 colonoscopy procedure (PROC) completed [facility] Information not available 10/13/2022 11:32:22 Procedure Notes None recorded. Medical Equipment None Reported. Allergies Allergen ID Allergen Name Allergen Category Reaction Reaction Severity Criticality Documentation Date Start Date Code Code System Note Provider Name and Address Organization Details Recorded Time Trulicity medicatio n abdominal pain moderate Not available 03/22/2020 20213 96 RxNorm Jumana Johnson MA [facility], [facility] 11:01:03 Medications Name Sig Start Date [...] cm 84 /min 98.1 [degF] 31.1 kg/m2 72635.7 5 g 136 mm[Hg] 74 mm[Hg] Socorro Mckeon [facility] 2 11:09:57 Date Recorded Body height Body mass index (BMI) Body weight Body temperature Heart rate Oxygen saturation Oxygen saturation in Arterial blood by Pulse oximetry Systolic blood pressure Diastolic blood pressure Provider Name and Address Organization Details Last Updated DateTime 3 177.8 cm 31.7 kg/m2 663174. 91 g 98.1 [degF] 90 /min 97 % 97 % 140 mm[Hg] 66 mm[Hg] VICKI Funes [facility] 3 14:03:45 Date Recorded Body height Heart rate Oxygen saturation Oxygen saturation in Arterial blood by Pulse oximetry Systolic blood pressure Diastolic blood pressure Provider Name and Address Organization Details Last Updated DateTime 3 177.8 cm 80 /min 97 % 97 % 128 mm[Hg] 60 mm[Hg] Gloria Crockett MA [facility] 3 14:42:18 Date Recorded Body height Heart rate Oxygen saturation Oxygen saturation in Arterial blood by Pulse oximetry Systolic blood pressure Diastolic blood pressure Provider Name and Address Organization Details Last Updated DateTime 3 177.8 cm 82 /min 96 % 96 % 112 mm[Hg] 60 mm[Hg] Gloria Crockett MA [facility] 3 08:07:48 Date Recorded Body weight Body temperature Heart rate Respiratory rate Oxygen saturation Oxygen saturation in Arterial blood by Pulse oximetry Systolic blood pressure Diastolic blood pressure Provider Name and Address Organization Details Last Updated DateTime 3 65410.4 7 g 97.2 [degF] 88 /min 16 /min 96 % 96 % 144 mm[Hg] 69 mm[Hg] Gloria Crockett MA [facility] 3 15:25:48 Date Recorded Body height Body mass index (BMI) Body weight Systolic blood pressure Diastolic blood pressure Provider Name and Address Organization Details Last Updated DateTime 09/21/2022 177.8 cm 32.7 kg/m2 819819.0 6 g 128 mm[Hg] 64 mm[Hg] Gloria Crockett MA [facility] 3 15:11:54 Social History Question Answer Notes LastModified by Organizat ion Details LastModified Time Tobacco Smoking Status Never Smoker Not Available [facility] 2011 04:53:49 Do You Have An Advance Directive? No [email or web address] Information not available 2011 What Is Your Level Of Alcohol Consumption? Moderate 1-2 Every 2-3 Weeks [email or web address] Information not available 07/22/2022 What Is Your [...] not available 05/23/2019 What Is Your Occupation? [employer] Information not available 07/28/2012 How [...] Of Your Most Recent Tobacco Screening? 09/21/2022 [email or web address] Information not available 09/21/2022 How Many Children [...] Other Forms Of Tobacco Or Nicotine? No [email or web address] Information not available 07/22/2022 Sex: Unknown Functional [...] formulation 7 completed Not Available [facility] 10/01/2022 21:02:47 influenza, unspecified formulation 7 completed Not Available [facility] 10/01/2022 21:02:47 pneumococcal polysaccharide PPV23 7 completed Not Available [facility] 10/01/2022 21:02:47 influenza, unspecified formulation 7 completed Not Available [facility] 10/01/2022 21:02:47 influenza, unspecified formulation 8 completed Not Available [facility] 10/01/2022 21:02:47 Influenza, split virus, quadrivalent, PF 3 completed Not Available [facility] 07/01/2019 02:26:42 Influenza, split virus, trivalent, preservative 4 completed Not Available [facility] 10/01/2022 21:02:47 Influenza, split virus, quadrivalent, PF 9 completed Not Available [facility] 07/01/2019 02:38:00 Tdap 2 completed Wallace Sweet MD [address] [place] [address], [phone], [facility] 12/02/2021 13:46:50 COVID-19, mRNA, LNP-S, PF, 30 mcg/0.3 mL dose 1 completed Not Available [facility] 10/01/2022 21:02:47 COVID-19, mRNA, LNP-S, PF, 30 mcg/0.3 mL dose 1 completed Not Available [facility] 10/01/2022 21:02:47 Past Encounters Encounter ID Performer Location Encounter Start Date Encounter Closed Date Diagnosis/Indication Diagnosis SNOMED-CT Code Diagnosis ICD10 Code Diagnosis Note [id number] [facility], OFFICE [address] [place] [address] 10/27/2000 10:45:00 07/04/2008 02:02:[id number], OFFICE [address] [place] [address] 11/25/2001 10:38:36 07/04/2008 02:02:[id number] [facility], OFFICE [address] [place] [address] 11/22/2001 12:58:05 07/04/2008 02:02:29 [id number] [facility], OFFICE [address] [place] [address] 02/17/2002 10:16:06 07/04/2008 02:02:29 [id number] [facility], OFFICE [address] [place] [address] 04/11/2002 10:38:32 07/04/2008 02:02:29 [id number] [facility], OFFICE [address] [place] [address] 05/18/2002 08:54:31 07/04/2008 02:02:29 [id number] [facility] [address] [place] [address] 06/23/2002 08:25:25 07/04/2008 02:02:29 [id number] [facility], OFFICE [address] [place] [address] 10/27/2002 10:38:56 07/04/2008 02:02:29 [id number] [facility], OFFICE [address] [facility] [address] 12/04/2002 14:46:36 07/04/2008 02:02:29 [id number] LAB - [facility] [address] [place] [address] 12/04/2002 00:00:00 07/04/2008 02:02:29 [id number] FP [facility], OFFICE [address] [facility] [address] 12/19/2002 16:00:41 07/04/2008 02:02:29 [id number] FP, [facility], OFFICE [address] [facility] [address] 05/21/2003 13:45:19 05/21/2003 17:33:03 [id number] [address] [facility], OFFICE [address] [facility] [address] 11/01/2003 16:14:38 11/02/2003 10:55:10 [id number] [facility], OFFICE [address] [facility] [address] 06/09/2004 09:12:28 06/09/2004 14:35:16 [id number] FP, [facility], OFFICE [address] [facility] [address] 07/17/2005 09:52:58 07/17/2005 15:36:35 [id number] FP [facility], OFFICE [address] [facility] [address] 07/05/2006 10:47:49 07/05/2006 15:09:32 [id number] LAB - [facility] [address] [facility] [place] [address] 07/06/2006 07:27:25 07/06/2006 07:27:29 [id number] FP [facility], OFFICE [address] [facility] [address] 07/09/2006 13:58:02 07/09/2006 15:28:32 [id number] LAB - [facility] [address] [facility] [place] [address] 07/09/2006 14:56:53 07/09/2006 14:57:19 [id number] FP, [facility], OFFICE [address] [facility] [address] 07/16/2006 00:00:00 07/04/2008 02:02:29 [id number] [facility], OFFICE [address] [facility] [address] 07/23/2006 07:25:57 07/23/2006 11:32:05 [id number] [facility], OFFICE [address] [place] PATEL[address] 07/26/2006 13:43:23 07/26/2006 16:17:18 [id number] LAB - [facility] [address] [place] Anand[address] 08/09/2006 07:13:41 08/09/2006 07:13:45 [id number] [facility], OFFICE [address] [place] PAT[place] 08/27/2006 08:04:39 08/27/2006 11:15:54 [id number] [facility], OFFICE [address] [place] PAT[place] 08/24/2006 08:24:16 09/13/2006 14:24:02 [id number] [facility], OFFICE [address] [place] [address] 12/21/2006 14:50:21 12/23/2006 08:29:08 [id number] LAB - [facility] [place] [address] 12/24/2006 07:43:32 12/24/2006 07:43:36 [id number] LAB - [facility] [place] [address] 03/16/2007 07:12:11 03/16/2007 07:12:16 [id number] [facility], OFFICE [address] [place] [address] 03/22/2007 15:01:47 07/04/2008 02:02:29 [id number] [facility], OFFICE [address] [place] [address] 05/23/2007 09:05:39 07/04/2008 02:02:29 [id number] LAB - [facility] [address] [place] [address] 05/27/2007 07:46:56 05/27/2007 07:47:00 [id number] [facility], OFFICE [address] [place] [address] 07/22/2007 10:48:34 07/04/2008 02:02:29 [id number] [facility], OFFICE [address] [place] [address] 12/22/2007 14:13:35 07/04/2008 02:02:29 [id number] LAB - [facility] [address] [place] [address] 12/21/2007 07:18:47 12/21/2007 07:18:53 [id number] Physical Therapy, [facility] [address] [place] Anand[address] 12/28/2007 16:24:57 12/29/2007 09:55:[id number] [facility], OFFICE [address] [facility] ANN [id number] 6 01/16/2008 13:54:48 07/04/2008 02:02:29 [id number] Physical Therapy, [facility] [address] [place] [address] 01/11/2008 16:24:51 01/24/2008 14:08:[id number] [facility], OFFICE [address] [facility] ANN HERNANDEZ[address] 6 02/22/2008 08:46:10 07/04/2008 02:02:[id number] [facility], OFFICE [address] [facility] [place] [address] 02/27/2008 10:14:54 07/04/2008 02:02:29 [id number] LAB - [facility] [address] [place] [address] 04/19/2008 07:02:00 04/19/2008 07:02:05 [id number] [facility], OFFICE [address] [facility] [place] [address] 05/03/2008 09:17:10 07/04/2008 02:02:[id number] [facility], OFFICE [address] [place] [address] 05/08/2008 10:28:13 07/04/2008 02:02:[id number] [facility], OFFICE [address] [facility] [place] [address] 05/17/2008 10:44:38 07/04/2008 02:02:[id number] [facility], OFFICE [address] [facility] [place] [address] 6 07/26/2008 10:36:24 07/30/2008 11:01:[id number] [facility], OFFICE [address] [facility] [place] [address] 6 11/07/2008 10:33:14 11/12/2008 14:37:51 [id number] Radiology , [facility] [address] [facility] [place] [address] 11/07/2008 11:51:45 11/09/2008 11:42:29 [id number] , [facility], OFFICE [address] [facility] [place]DE[place] 6 12/19/2008 09:10:58 12/19/2008 14:12:15 [id number] , [facility], OFFICE [address] [facility] [place] [address] 02/20/2009 16:27:04 02/21/2009 14:15:54 [id number] LAB - [facility] 70 [facility] N[place] 6 10/29/2008 07:04:44 10/29/2008 07:04:54 [id number] Eye Care, [facility] 70 [facility] [place] 12/04/2008 08:35:01 12/04/2008 14:08:24 [id number] LAB - [facility] [address] [facility] [place] [address] 02/05/2009 08:52:32 02/05/2009 08:52:[id number] [facility], OFFICE [address] [facility] [place] [address] 08/08/2009 10:49:48 08/09/2009 11:28:[id number] [facility], OFFICE [address] [place] [address] 09/17/2009 10:57:01 09/19/2009 12:48:[id number] [facility], OFFICE [address] [place] [address] 10/01/2009 09:16:37 10/01/2009 14:51:25 [id number] , [facility], OFFICE [address] [facility] [place] [address] 10/14/2009 10:06:27 10/14/2009 12:00:02 [id number] , [facility], OFFICE [address] [place] [address] 01/16/2010 07:41:39 01/16/2010 12:37:13 [id number] , [facility], OFFICE [address] [facility] [place] [address] 08/11/2010 14:49:16 08/14/2010 13:29:[id number] [facility], OFFICE [address] [facility] [place] [address] 09/04/2010 11:12:12 09/09/2010 08:33:[id number] [facility], OFFICE [address] [facility] [place] [address] 01/14/2011 10:09:19 01/14/2011 11:23:[id number] [facility], OFFICE [address] [facility] [place] [address] 04/10/2011 11:50:57 04/13/2011 13:24:[id number] [facility], OFFICE [address] [facility] [address] 12/22/2011 07:59:48 12/22/2011 14:26:16 [id number] Radiology , [facility] 70 [facility] [place] [address] 12/22/2011 08:46:23 12/23/2011 11:15:39 [id number] Physical Therapy, [address] [address] 12/22/2011 12:29:23 12/23/2011 07:34:[id number] [facility], OFFICE [address] [place] [address] 01/05/2012 08:28:16 01/05/2012 09:29:20 [id number] Physical Therapy, [facility] [address] [place] [address] 01/05/2012 12:21:57 01/05/2012 13:09:59 [id number] Physical Therapy, [address] [address] 01/14/2012 14:16:39 01/15/2012 07:40:59 [id number] Domenic Collazo MD [facility], OFFICE [address] [place] [address] 6 01/19/2012 07:32:37 01/19/2012 09:15:36 [id number] Nutrition -[facility] 70 [facility] [place] [address] 02/10/2012 08:18:57 02/10/2012 09:08:04 [id number] Domenic Collazo MD , [facility], OFFICE [address] [place] [address] 6 07/28/2012 08:56:22 07/28/2012 09:46:12 [id number] Makayla Solares [facility], OFFICE [address] [place] [address] 10/05/2012 11:05:15 10/05/2012 15:55:29 [id number] Wallace Sweet MD , [facility], OFFICE [address] [place] [address] 6 06/13/2013 08:52:36 06/13/2013 09:57:34 Influenza vaccine needed [id number] 106 Mixed hyperlipidemia 522516697 continue to work on diet and exercise as discussed Uncontroll ed type 2 diabetes mellitus 745800840 Benign ess ential hypertension [id number] continue to work on diet ,exercisea nd lowering salt intake as discussed [id number] HAFSA Law , [facility], OFFICE [address] [place] [address] 08/04/2013 15:13:51 08/07/2013 13:22:35 Impacted cerumen 19653406 irrigated in clinic no complicati ons. [id number] Gloria Murphy , [facility], OFFICE [address] [place] [address] 03/26/2014 16:14:43 03/26/2014 16:49:19 Benign essential hypertension 8868648 Mixed hyperlipidemia 494561837 Uncontroll ed type 2 diabetes mellitus 735374331 Renal diso rder due to type 2 diabetes mellitus 082270844 Benign par oxysmal positional vertigo 258529674 [id number] Gloria Murphy [facility]ocr[facility], [address] [address] 04/04/2014 13:14:50 04/04/2014 15:08:28 Uncontrolled type 2 diabetes mellitus 532578556 -continue metformin 1g 2x/d -stop glyburide, change to glipizide 10mg 2x/d -start victoza 0.6 mg once daily for 1 week; then increase to 1.2 mg once daily Obesity 450845902 Essential hypertension 64034260 -lisinopri l Mixed hyperlipidemia 594977148 -lovastati n [id number] Taisha Johnston Physical Therapy, [address] [place] [address] 04/16/2014 16:18:50 04/17/2014 08:27:41 Benign paroxysmal positional vertigo 628424883 [id number] Taisha Johnston Physical Therapy, [address] [place] [address] 2014 12:01:49 2014 13:34:38 Benign paroxysmal positional vertigo 426718306 [id number] [facility] [address] [place] [address] 05/04/2014 13:01:46 05/04/2014 14:08:08 Uncontrolled type 2 diabetes mellitus 467427269 -continue metformin 1g 2x/d -continue glipizide 10mg 1 x/d, may decrease to 1/2 tab daily if less than 100mg/dL after taking this medicine and then stop if still less than 100mg/dL -continue victoza 1.2 mg subcut once daily, may then decrease and stop if regularly less than 100mg/dL Obesity 080505646 Essential hypertension 75530064 -lisinopri l Mixed hyperlipidemia 425974012 -lovastati n [id number] [facility], OFFICE [address] [place] [address] 06/06/2014 08:18:24 06/08/2014 08:28:39 Excessive cerumen in ear canal 143337425 recurrence [id number] Johanne Maribel , [facility], OFFICE [address] [place] [address] 08/13/2014 16:22:39 08/13/2014 17:04:10 Benign essential hypertension 9769562 Mixed hyperlipidemia 332580869 Type 2 sailaja betes mellitus without complication 572815847 [id number] JUANIS Farfan [facility], OFFICE [address] [place] [address] 11/14/2014 16:22:50 11/14/2014 16:48:58 Pain in right lower limb 628294254 upper leg, post fall on ice 2-3 months, not fulle recovered, will refer to PT for further evaluation , advised to use ice alternatin g w/heat x 20 m. X 3-4 x/day, Ibuprofen 200 mg 3 tabs TID for the next 7-10d, take w/food, F/U PRN, may need further evaluation w/Orthoped ist, agrees w/plan. [id number] Jumana Johnson MA , [facility], OFFICE [address] [place] [address] 12/10/2014 16:14:55 12/10/2014 16:41:53 Mixed hyperlipidemia 252568553 Benign ess ential hypertension 2461380 Type 2 sailaja betes mellitus without complication 694385093 Obesity 446160598 [id number] Mary Kate Weir MD , [facility], OFFICE [address] [place] [address] 03/07/2015 16:40:20 03/08/2015 11:19:32 Lifestyle 704254177 Impacted cerumen 20199291 bilateral impacted cerumen, rinsed out with resolution . [id number] Wallace Sweet MD , [facility], OFFICE [address] [place] [address] 07/08/2015 08:36:19 07/08/2015 09:15:01 Mixed hyperlipidemia 147007145 E78.2 Benign ess ential hypertension 1754240 I10 Uncontroll ed type 2 diabetes mellitus 742037018 E11.65 Acute situ ational disturbance 811050518 F43.20 Chest pain 54565092 R07. 9 [id number] Wallace Sweet MD , [facility], OFFICE [address] [place] [address] 10/07/2015 16:18:20 10/07/2015 16:49:45 Benign essential hypertension 5428001 I10 . Mixed hyperlipidemia 267 004435 E78.2 continue to work on diet and exercise as discussed Uncontroll ed type 2 diabetes mellitus 115025277 E11.65 Obesity 578167242 E66.9 Impotence 061898651 N52. 9 [id number] Sarika Rose RN, BSN, [facility] , [address] [address] 10/16/2015 15:17:49 10/16/2015 16:45:28 Uncontrolled type 2 diabetes mellitus 272889760 E11.65 [id number] Kaye Zhao, JUANIS-AIDA , [facility], OFFICE [address] [place] [address] 12/17/2015 10:18:10 12/18/2015 10:57:34 Impacted cerumen 64731571 H61.23 irrigated without issue in clinic. [id number] Wallace Sweet MD , [facility], OFFICE [address] [place] [address] 01/06/2016 15:21:50 01/06/2016 16:18:35 Benign essential hypertension 6176881 I10 Blood pressure at goal Mixed hyperlipidemia 267 238432 E78.2 continue to work on diet and exercise as discussed Uncontroll ed type 2 diabetes mellitus 155931899 E11.65 [id number] Sarika Rose RN, BSN, [facility] DM Education , [facility] [address] [facility] [place] [address] 01/15/2016 15:14:26 01/21/2016 12:10:03 Uncontrolled type 2 diabetes mellitus 691460233 E11.65 Met with Wilberto today for diabetes [...] may be the cause of his hyperglyce ijl. He would have 1-2 fruits with his [...] of regular physical activity on blood sugars. [id number] Sarika Rose RN, BSN, [facility] DM Education , [facility] [address] [place] [address] 03/11/2016 14:57:26 03/11/2016 16:55:46 Uncontrolled type 2 diabetes mellitus 519966253 E11.65 Met with Wilberto today for follow [...] limiting cardiovasc ular risk. Other strategies for [facility]. [id number] Wallace Sweet MD , [facility], OFFICE [address] [place] [address] 04/28/2016 08:47:08 04/28/2016 10:07:36 Adult health examination 055874955 Z00.00 see Risk Assessment and Lifestyle Change Counseling section above Counseling 553890986 Z71 .9 Mixed hyperlipidemia 267 866399 E78.2 continue to work on diet and exercise as discussed Uncontroll ed type 2 diabetes mellitus 596943068 E11.65 Impotence of organic origin 945575855 N52.9 Family his tory of malignant neoplasm of thyroid 229518983 Z80.8 [id number] Erna Villalpando, OD Eye Care, [facility] [address] [place] [address] 06/03/2016 14:09:37 06/03/2016 16:01:10 Type 2 diabetes mellitus without complication 979822300 E11.9 uncontroll ed, no diabetic retinopath y OU, pt ed, encouraged good BS control to maintain good eye health and vision. RTC 1 yr CEE or sooner with vision changes. [id number] Wallace Sweet MD , [facility], OFFICE [address] [place] [address] 08/04/2016 08:48:09 08/04/2016 09:18:49 Benign essential hypertension 5271780 I10 Mixed hyperlipidemia 267 707127 E78.2 Uncontroll ed type 2 diabetes mellitus 566410072 E11.65 Disorder o f nervous system due to type 2 diabetes mellitus 128750457 E11.40 Overweight 724770888 E66 .3 [id number] Sarika Rose RN, BSN, [facility] DM Education , [facility] [address] [place] [address] 09/01/2016 15:35:52 09/02/2016 09:08:30 Uncontrolled type 2 diabetes mellitus 362486370 E11.65 Met with Wilberto today for follow up of his diabetes education, kindly referred by Dr. Sweet. Wilberto has had diabetes for about 10 years now. Most recently, his A1C was 10.2% in [facility]. We reviewed how he has had an [...] limiting cardiovasc ular risk. Other strategies for [facility]. [id number] John Luna MD FP, [facility], OFFICE [address] [place] [address] 09/19/2016 13:00:28 09/19/2016 15:23:49 Impacted cerumen 45485309 H61.23 Otalgia 83454162 H92.03 likley due to cerumen [id number] Mani Padron MD FP, [facility], OFFICE [address] [place] [address] 11/23/2016 11:29:28 11/24/2016 13:05:04 Acute bronchitis 77917447 J20.9 OOW for 2 days , tessalon perles, rest, liquids [id number] Wallace Sweet MD , [facility], OFFICE [address] [place] [address] 11/24/2016 08:39:51 11/24/2016 09:46:06 Benign essential hypertension 3537524 I10 Mixed hyperlipidemia 267 340349 E78.2 Uncontroll ed type 2 diabetes mellitus 599116394 E11.65 [id number] Sarika Rose RN, BSN, [facility] DM Education , [facility] [address] [place] [address] 01/05/2017 14:22:22 01/11/2017 14:06:39 Uncontrolled type 2 diabetes mellitus 476223161 E11.65 Met with Wilberto today for follow [...] more. He reports he is flying to [place] in 2 weeks and is nervous about [...] once we decide what to prescribe him. [id number] Wallace Sweet MD , [facility], OFFICE [address] [place] [address] 03/08/2017 16:58:56 03/08/2017 17:43:47 Benign essential hypertension 1547673 I10 Mixed hyperlipidemia 267 698653 E78.2 Uncontroll ed type 2 diabetes mellitus 875521100 E11.65 [id number] Sarika Rose RN, BSN, [facility] DM Education , [facility] [address] [place] [address] 03/16/2017 15:32:36 03/18/2017 08:48:45 Uncontrolled type 2 diabetes mellitus 987449817 E11.65 Met with Wilberto today for follow [...] testing often. He reports his trip to [place] went well during the summer when he was nervous he would eat too much food while he was away. He was at a wedding. He reports he tends to gain 15 lbs when he is in [place] and this was the first trip he did not gain any weight because he continued to be careful while he was away. He continues to takeMetfor min 1,000 mg BID, Glipizide 10 mg BID and Victoza 1.8 mg QD. He was [facility] and start testing [facility]. He was encouraged [...] of regular physical activity on blood sugars. [id number] Wallace Sweet MD , [facility], OFFICE [address] [place] [address] 07/13/2017 14:38:02 07/14/2017 08:06:17 Benign essential hypertension 1518331 I10 Mixed hyperlipidemia 267 515849 E78.2 Uncontroll ed type 2 diabetes mellitus 317635435 E11.65 [id number] JUANIS Farfan , [facility], OFFICE [address] [place] [address] 07/19/2017 09:59:16 07/19/2017 11:23:32 Screening for malignant neoplasm of colon 900913069 Z12.11 Referral for a DIRECT booked colonoscop y. This patient is a healthy ASA Class 1 or 2 patient (only mild systemic disease), or a STABLE, well controlled insulin dependent diabetic. They do not have serious cardiac disease ie VT/angiopl asty within 1 year, symptomati c CHF; renal failure with CKD 4 or 5; take Coumadin, Plavix, Aggrenox, etc. Acholic stool 41921304 R 19.5 Abnormal colored elif, labs & US ordered as written below, further treatment pending results. Impacted cerumen 4323352 6 H61.23 Both ears successful ly cleared of cerumen. Advised to use Debrox gtts. to keep ears patent. [id number] Lauren Khan NP , [facility], OFFICE [address] [place] [address] 09/27/2017 11:53:22 09/28/2017 09:35:28 Acute bronchitis 75017515 J20.9 Reassured. Lungs completely clear. Enc force fluids, steam inhalation prn, adequate rest. OK to continue otc cold/cough meds prn for symptom management . F/u here if not gradually improving, symptoms worsening, especially if develops fevers or increased SOB. Codeine cough syrup prn primarily for night time use. Warned can cause drowsiness . [id number] Tata Silva PA-C , [facility], OFFICE [address] [place] [address] 10/01/2017 14:36:18 10/01/2017 16:03:25 Acute low back pain 474258817 M54.5 09/25 came out with cold/bronc hitis [...] alternate hot/cold packs. follow up 4-5 days. [id number] John Luna MD , [facility], OFFICE [address] [place] [address] 11/13/2017 09:44:36 11/13/2017 11:25:52 Dysfunction of eustachian tube 83011627 H69.91 supportive care f/u if not improved in 2-3 weks [id number] Lauren Khan NP , [facility], OFF[address] [place] [address] 01/07/2018 14:46:25 01/10/2018 08:54:41 Hearing loss 56444872 H91.91 Impacted cerumen 1375231 6 H61.23 Nurse in as above. TM's [...] phone next week. Consider ENT/audiol ogy referral. [id number] Wallace Sweet MD , [facility], OFF[address] [place] [address] 04/19/2018 13:34:53 04/19/2018 14:18:10 Benign essential hypertension 8081014 I10 Mixed hyperlipidemia 267 251342 E78.2 Uncontroll ed type 2 diabetes mellitus 027430874 E11.65 Hearing loss 73439205 H9 1.91 Anxiety 82908825 F41.9 [id number] Sarika Rose, RN, BSN, [facility] DM Education , [facility] [address] [place] [address] 06/27/2018 08:42:53 07/04/2018 09:48:45 Uncontrolled type 2 diabetes mellitus 070093217 E11.65 Met with Wilberto clark for follow [...] of regular physical activity on blood sugars. [id number] Sarika Rose RN, BSN, [facility] DM Education , [facility] [address] [place] [address] 08/02/2018 07:50:46 08/02/2018 11:32:49 Uncontrolled type 2 diabetes mellitus 485559533 E11.65 Met with Wilberto clark for follow [...] Other strategies for maintainin g heart health. [id number] Erna Villalpando, [facility], [facility] [address] [place] [address] 08/02/2018 09:03:25 08/02/2018 15:56:51 Type 2 diabetes mellitus without complication 821072438 E11.9 uncontroll ed, no diabetic retinopath y OU, pt ed, encouraged good BS control to maintain good eye health and vision. RTC 1 yr CEE or sooner with vision changes. [id number] POORNIMA Willis , [facility], OFFICE [address] [place] [address] 10/05/2018 13:03:14 10/06/2018 08:27:14 Uncontrolled type 2 diabetes mellitus 874183867 E11.65 Pt to do labs, f/u w/ PCP in the next month Active or passive immunization 230699256 Z23 Pt declined TD for today despite knowing the risk of disease and Mixed hyperlipidemia 267 816127 E78.2 Pt to have labs done and schedule w/ PCP within the next month- discussed goal is LDL < 100 Impacted cerumen 7599381 6 H61.23 Bilateral impacted cerumen- ear lavage done Essential hypertension 90588300 I10 Pt to have labs done and schedule w/ PCP within the next month Neuropathy due to diabetes mellitus 960351332 E11.40 pt states- chronic- reviewed improved control of BS's will decrease symptoms. [id number] Wallace Sweet MD FP, [facility], OFFICE [address] [place] [address] 03/30/2019 08:30:29 03/30/2019 09:12:31 Mixed hyperlipidemia 911225664 E78.2 Active or passive immunization 692922058 Z23 Benign ess ential hypertension 0969154 I10 Neuropathy due to diabetes mellitus 616188891 E11.40 Uncontroll ed type 2 diabetes mellitus 443878377 E11.65 [id number] Sarika Rose RN, BSN, [facility] , [address] [address] 05/04/2019 08:44:36 05/05/2019 12:08:07 Uncontrolled type 2 diabetes mellitus 539549774 E11.65 Met with Wilberto today for follow [...] limiting cardiovasc ular risk. Other strategies for [facility]. [id number] Gloria Leonard MD , [facility], OFFICE [address] [place] [address] 05/23/2019 10:04:58 05/23/2019 15:19:11 Active or passive immunization 788449999 Z23 Asymmetric al sensorineural hearing loss 178071701 H90.5 pt will call for appt- printed the referral from Dr Sweet earlier this year so he can callhe never followed updoes not feel sx have changed Impacted c erumen of bilateral ears 5355555592 040326 H61.23 irrigation todaycompl etely cleared after several attempts [id number] John Luna MD , [facility], OFF[address] [place] [address] 07/06/2019 08:16:55 07/06/2019 13:42:42 Acute upper respiratory infection 00026380 J06.9 Educated patient that URI is a [...] or failure to resolve in 2-4 weeks. [id number] Sarika Rose RN, BSN, [facility] DM Education , [address] [address] 07/12/2019 13:14:32 07/17/2019 11:36:40 Uncontrolled type 2 diabetes mellitus 159949295 E11.65 Met with Wilberto and his today [...] diabetes is progressiv e and medication s exchange teller time (which includes insulin). Monitoring : Appropriat e times to test blood sugar and target blood sugars. Physical Activity : Introducti on to its importance . Effects of regular physical activity on blood sugars. Chronic Complicati ons: Introducti on to long-term effects, Importance of ABCs (A1c, Blood pressure and Cholestero l control) in limiting cardiovasc ular risk. Other strategies for [facility]. Reviewed the benefits of insulin and how he will need a long acting insulin before we start him on meal time insulin. [id number] Sarika Rose RN, BSN, [facility] DM Education , [facility] [address] [place] [address] 08/23/2019 12:54:55 08/23/2019 15:28:53 Uncontrolled type 2 diabetes mellitus 605644891 E11.65 Met with Wilberto and his today for diabetes education, kindly referred by Dr. Sweet.-He has had diabetes for about 10 years now.-Just arrived last week from [place]. No fever, no cough. -Last A1C was [...] 2 days). 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 He is working 13 hours per [...] diabetes is progressiv e and medication s exchange teller time (which includes insulin). Monitoring : Appropriat e times to test blood sugar and target blood sugars.Chr onic Complicati ons: Introducti on to long-term effects, Importance of ABCs (A1c, Blood pressure and Cholestero l control) in limiting cardiovasc ular risk. Other strategies [facility]. [id number] Montserrat Anand PA-C , [facility], OFFICE [address] [place] [address] 08/24/2019 10:34:06 08/24/2019 17:49:12 Rib pain 659356008 R07.81 s/p fall. Advised compressio n brace and ibuprofen. RTC for worsening pain. [id number] Sarika Rose RN, BSN, [facility] DM Education , [facility] [address] [place] [address] 10/19/2019 09:06:19 10/20/2019 09:04:53 Uncontrolled type 2 diabetes mellitus 021817413 E11.65 -Virtual Appt via [email or web address] due to COVID-19 pandemic.- Kindly referred by [...] limiting cardiovasc ular risk. Other strategies for [facility]. Long acting insulin such as Lantus or Basaglar and the benefits for his blood sugars. [id number] Sarika Rose RN, BSN, [facility] DM Education , [facility] [address] [place] [address] 11/30/2019 10:15:19 12/01/2019 09:18:58 Uncontrolled type 2 diabetes mellitus 704304123 E11.65 -Virtual Appt via phone due to [...] that the provider location is not at [facility] Patient location: home During the visit the patient? s medical history and medical record were reviewed. The patient was notified to call our office for worsening or urgent symptoms. [id number] Wallace Sweet MD , [facility], OFF[address] [place] [address] 03/22/2020 10:46:30 03/25/2020 09:35:39 Mixed hyperlipidemia 107162520 E78.2 Essential hypertension 65169396 I10 Uncontroll ed type 2 diabetes mellitus 173042253 E11.65 [id number] ALAN Marcus, [facility], [address] [place] [address] 06/13/2020 10:08:22 06/17/2020 10:27:30 Muscle pain 77780374 M79.10 advised ample rest and hydration and gentle movement. RTC for worsening/ persisting sx. [id number] ALAN Marcus, [facility], [address] [place] [address] 06/25/2020 14:01:39 06/26/2020 13:07:05 COVID-19 705974928 U07.1 Right sided headache lingering. No red flags. Advised ample rest, hydration , OTC migrelief. F/U in 1 week or sooner for worsening sx. [id number] ALAN Marcus, [facility], [address] [place] [address] 07/02/2020 11:31:22 07/03/2020 14:29:04 SARS-CoV-2 202952757 U07.1 MEDINA has resolved. Asymptomat ic. Back at work. RTC for concerning sx. [id number] Sarika Rose RN, BSN, [facility] DM Education , [address] [address] 08/22/2020 09:04:35 08/22/2020 10:47:49 Uncontrolled type 2 diabetes mellitus 776051724 E11.65 -Virtual Appt via phone due to COVID-19 pandemic. He could not hear the provider when we tried [facility]. -Kindly referred by Dr. Sweet for [...] 180 mg/dl. 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 [id number] Wallace Sweet MD , [facility], [address] [place] [address] 12/30/2020 10:35:47 12/30/2020 11:37:27 Mixed hyperlipidemia 256046052 E78.2 Essential hypertension 31281042 I10 Neuropathy due to diabetes mellitus 353298047 E11.40 [id number] Sarika Rose RN, BSN, [facility] DM Education , [facility] [address] [place] [address] 01/28/2021 08:11:07 01/31/2021 15:37:06 Uncontrolled type 2 diabetes mellitus 529400644 E11.65 -Virtual Appt via [employer] due to COVID-19 pandemic. -Kindly referred by [...] his glucose more often. Concerned about his jail affects of diabetes, as he has been elevated with high A1C for many years. He likely needs short acting insulin with meals. Will discuss with Dr. Sweet about starting Humalog or Novolog. Did not get a chance to discuss this with Wilberto today and will discuss this at our next visit. [id number] Wallace Sweet MD , [facility], [address] [place] [address] 04/03/2021 08:49:27 04/03/2021 09:15:23 Essential hypertension 92298104 I10 Mixed hyperlipidemia 267 362076 E78.2 Uncontroll ed type 2 diabetes mellitus 982104788 E11.65 [id number] Sarika Rose, RN, BSN, [facility] DM Education , [facility] [address] [place] [address] 04/08/2021 09:03:28 04/10/2021 12:59:38 Uncontrolled type 2 diabetes mellitus 062819264 E11.65 -Virtual Appt via [employer] due to COVID-19 pandemic. -Kindly referred by [...] it. He bought a toe guard from [employer]. At one point, he had to get custom made, from [employer] (about 10 years ago). As soon as [...] down blood sugars. FU in 1 month. 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 refer to retina. 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 No DR OS. No CSME OU. Presbyopia 68258689 H52. 4 ok to cont with OTC readers. [id number] Sarika Rose, RN, BSN, [facility] DM Education , [facility] [address] [place] [address] 07/14/2021 09:09:17 07/15/2021 09:52:12 Uncontrolled type 2 diabetes mellitus 523101852 E11.65 -Virtual Appt via over the phone due to COVID-19 pandemic. Pt. tried connecting to [employer], however, it would not connect (he has [...] wax in the past. Tried to call [facility] to have it removed, however, was told that [facility] is no longer doing this. About 3 [...] in the past. Wants to see a health underwriter for it. There is a referral for a health underwriter from 04/03, encouraged he call to schedule an appt. -Asked about sensors, and discussed how he does not currently qualify for a sensor based on Medicare/[employer] edicaid strict guidelines with sensors. However, his [...] this month. Schedule an appt with the health underwriter . Call insurance to find out if [...] requiremen ts to go on a sensor. [id number] Wilberto Ivan DPM Podiatry, [facility] [address] [place] [address] 08/05/2021 10:29:51 08/05/2021 11:30:28 Disorder of nervous system due to type 2 diabetes mellitus 920318439 E11.49 Pronation of foot 081547 03 M21.6X9 [id number] Sarika Rose, RN, BSN, [facility] DM Education , [facility] [address] [place] [address] 09/16/2021 10:02:55 09/19/2021 11:05:31 Uncontrolled type 2 diabetes mellitus 770540765 E11.65 -Virtual Appt via over [employer] for diabetes education. -Kindly referred by Dr. [...] guard for his large calluses. Saw a health underwriter and was told it was due to [...] until fasting glucose are below 130 mg/dl. [id number] , [facility], [address] [place] [address] 12/01/2021 10:39:30 12/01/2021 11:12:28 Adult health examination 317483150 Z00.00 see Risk Assessment and Lifestyle Change Counseling section above Counseling 277565443 Z71 .9 including cardivascu lar risk reduction counseling Depression screening 171 869854 Z13.31 depression screening tool administer ed, entered into emr, scored and discussed, time greater than 7.5 minutes Screening for alcohol abuse 252627598 Z13.39 Essential hypertension 39869626 I10 Mixed hyperlipidemia 267 620121 E78.2 Active or passive immunization 121513449 Z23 Uncontroll ed type 2 diabetes mellitus 756310198 E11.65 Impacted c erumen of bilateral ears 1183189149 231623 H61.23 [id number] Sarika Rose, RN, BSN, [facility] DM Education , [facility] [address] [place] [address] 12/24/2021 09:05:34 01/05/2022 16:28:55 Uncontrolled type 2 diabetes mellitus 954581014 E11.65 -Virtual Appt via over [employer] today for diabetes education. -Kindly referred by [...] have some numbness and tingling, saw a health underwriter . He gets calluses on his big toe. He has flat feet and this causes the calluses. He puts a toe guard on them when walking.-Makayla jose exam was a year ago. He went to [facility] eye doctor. He was told that he [...] said that Dexcom is not covered at [employer], however, it is worth calling insurance to find out if it is covered with a DME and how much is the co-pay. The Freestyle Pushpa sensor is covered with [employer] [facility], however the co-pay is $100 per month. Pt.'s blood sugars are improved since he is watching his diet, however, his A1C was 12% in November and has been above 9-10% for years therefore, he is really in need of short acting insulin to avoid jail complicati ons. Sent a message to Dr. Sweet about starting a small dose of Humalog or Novolog 5 units with each meal. Pt. does not currently have jail complicati ons. Reviewed how insulin puts him [...] and the preferred DME is [facility]. 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 mild NPDR OU, trace ME OS. new finding. PED resolved OS. refer to retina in 1-2 weeks. [id number] Sarika Rose RN, BSN, [facility] DM Education , [address] [address] 01/21/2022 09:03:01 01/21/2022 12:26:35 Uncontrolled type 2 diabetes mellitus 752950689 E11.65 -Virtual Appt via over [employer] for diabetes education. -Kindly referred by Dr. [...] connect his Freestyle Pushpa 2 sensor to [facility]'s [employer] account today. Download of sensor reveals:-A verage [...] prevent insulin from stacking. -Now on the [employer] Pushpa 2 sensor and had trouble with [...] he has eaten something. FU in February. [id number] Sarika Rose, RN, BSN, [facility] DM Education , [address] [address] 02/18/2022 09:43:48 02/18/2022 10:30:23 Uncontrolled type 2 diabetes mellitus 368603659 E11.65 -Virtual Appt via over the phone [...] burp and he had diarrhea. -Connected to [employer] and able to review his download today: [...] appt in person. FU in 1 month. [id number] Sarika Rose RN, BSN, [facility] DM Education , [facility] [address] [place] [address] 04/02/2022 10:05:34 04/02/2022 13:10:29 Uncontrolled type 2 diabetes mellitus 461120866 E11.65 -Virtual Appt via [employer] today. -Kindly referred by Dr. Sweet. -He [...] mg/dl.Carb ohydrate Ratio: 5 grams -Connected to [employer] and able to review his download today: [...] in 1 month to review sensor download. [id number] Mary Kate Weir MD , [facility], [address] [place] [address] 04/06/2022 10:40:31 04/06/2022 16:07:56 Tinnitus of left ear 1375777702 106 H93.12 Temporoman dibular joint disorder 63511882 M26.609 you can use both ibuprofen and [...] the area hurts more 2 hours after. [id number] , [facility], [address] [place] [address] 06/18/2022 13:48:25 06/18/2022 14:18:13 Uncontrolled type 2 diabetes mellitus 907591320 E11.65 stressed importance of controllin g sugars or wounds will not healat risk of losing toes if we arent aggressive check a1c today, will call pt with results and possible med adjustment Diabetic foot ulcer 1470 16743 E13.621 start abx, refer to wound caresee above [id number] Sheri Mata MD , [facility], [address] [place] [address] 07/22/2022 14:28:48 07/22/2022 15:55:20 Uncontrolled type 2 diabetes mellitus 176236860 E11.65 stressed importance of controllin g sugars or wounds will not healat risk of losing toes if we arent aggressive last a1c 10.7contin ue meds, pt aggressive ly managingre peat a1c september, see me afterdior grace message sent with info on nutrition consult name and number Diabetic foot ulcer 3710 03153 E13.621 slowly improvemen tcontinue with wound care [id number] Sheri Mata MD FP, [facility], [address] [place] [address] 08/10/2022 07:40:22 08/10/2022 08:42:21 Uncontrolled type 2 diabetes mellitus 562018252 E11.65 stressed importance of controllin g sugars [...] per month Neuropathy due to diabetes mellitus 073310670 E11.40 as above Diabetic foot ulcer 3710 41705 E13.621 slowly improvemen tcontinue with wound careMRI pending to rule out osteomyeli tis [id number] Sheri Mata MD FP, [facility], [address] [place] [address] 09/21/2022 14:38:30 09/21/2022 16:20:39 Essential hypertension 95011473 I10 well controlled on med Uncontroll ed type 2 diabetes mellitus 754332555 E11.65 a1c down to 7.9!contin ue diet, exercisewi ll back down lantus to avoid lows overnightc ontinue humalogrep eat labs, see me 3 monthsi will research berberine for safety Diabetic foot ulcer 3710 11882 E13.621 slowly improvemen tcontinue with wound care Health Concerns Section Related Observation LastModified by Organization Detai ls LastModified Time None Recorded Concern Status LastModified by Organization Details LastModified Time None Recorded Advance Directives Directive N: Payers Encounter Date Sequence Insurance Name Policy Number Policy Orozco Covered Member ID Orozco Member ID Guarantor Name 04/06/2022 1 [facility] [id number] Wilberto Diegoand [id number] Wilberto Aquino [facility] 06/18/2022 1 [facility] [id number] Wilberto Diegoand [id number] Wilberto Aquino Zoraida 07/22/2022 1 [facility] [id number] Wilberto Aquino [facility] [id number] Wilberto Aquino [facility] 08/10/2022 1 [facility] [id number] Wilberto Aquino [facility] [id number] Wilberto Aquino [facility] 09/21/2022 1 [facility] [id number] Wilberto Aquino [facility] [id number] Wilberto Aquino [facility] Notes Date Note Type Note Provider Name and Address Organization Details Recorded Time 04/06/2022 text/html Pt reports L artur e ear and jaw pain ongoing about 2 wks, feels like he can hear constant humming in L ear, Denies drainage or swelling. Pain is worse when he opens his mouth. Mary Kate Weir MD [address] [place] [address], [phone], [facility] 04/06/2022 11:43:41 06/18/2022 text/html Foot issues. Big toe on both feet. Calluses. Blood blisters. presents to discuss feet. Has to wear steel toed shoes at work and now toes have painful blisters. Not checkin sugars. Taking meds as listed Sheri Mata MD [address] [place] [address], [phone], [facility] 06/18/2022 14:22:38 07/22/2022 text/html Patient presents to the office today for f/u on sore on foot. for followup foot ulcer and DM. Sugars mostly under 150. Taking meds as listed. WOrking hard on controlling.Seeing wound care, foot healing slowlyHasnt heard about nutrition consult Sheri Mata MD [address] [place] [address], [phone], [facility] 07/22/2022 14:59:41 08/10/2022 text/html Patient presents to [...] 3-4 times per day Sheri Mata MD [address] [place] [address], [phone], [facility] 08/10/2022 08:23:38 09/21/2022 text/html for followup DM. Working very hard. Taking 50 lantus HS and 30 humalog with meals. Has been having lows in middle of night.Seeing wound care for foot. Had a setback, Was casted and caused infection, on two abx nowread about berberine, herb used in [place] for DM, wonders if can tryhad colon last week, normal Sheri Mata MD [address] [place], [phone], [facility] 09/21/2022 15:30:10
[2024-08-26 11:43] LABS: Anion Gap 13 (12-20); Blood Urea Nitrogen 18 mg/dL (9-16); Calcium 9.4 mg/dL (8.4-10.2); Carbon Dioxide 24 mmol/L (22-29); Chloride 107 mmol/L (96-108); Estimated Glomerular Filt Rate > 60; Glucose Random 136 mg/dL (60-115); Potassium 4.3 mmol/L (3.3-5.1); Sodium 140 mmol/L (135-145)
== END 2024-08-26 07:21 | disposition home or self-care (01) ==
LOC: HO.HMGCLDS 07:20
PROVIDERS: PCP Internal Medicine; Visit Provider Internal Medicine
DX: R07.89 Other chest pain (principal)
CPT/HCPCS: 36415; 80048

== ENCOUNTER 2024-09-05 14:33 | Outpatient (AMB) | payer OTHER, SELFPAY ==
[2024-09-05 14:47] VITALS: BP 138/78; PULSE 88; BMI 31.3
--- NOTE | 2024-09-05 14:47 | A.OFFVIS_ITS ---
Vital Signs 09/05/24 14:47 Height 5 ft 10 in Weight 218 lb 4.122 oz BMI 31.3 BP 138/78 Blood Pressure Location Lt brachial Position Sitting Pulse 88 Pulse Source Pulse Oximeter Intake Visit Reasons: follow up / CTA Allergies semaglutide [From Ozempic] Adverse Reaction (Intermediate, Verified 08/07/24 09:47) burping Medication List - Last Reconciled 09/05/24 by Santi George MD aspirin (Adult Aspirin Regimen) 81 mg PO DAILY atorvastatin 10 mg PO BEDTIME cholecalciferol (vitamin D3) 25 mcg PO DAILY [Diabetic shoes As directed] empagliflozin (Jardiance) 25 mg PO DAILY flash glucose sensor (FreeStyle Pushpa 2 Sensor kit) USE DIRECTED TO MONITOR BLOOD GLUCOSE DAILY. CHANGE SENSOR EVERY 14 DAYS insulin glargine (Lantus Solostar U-100 Insulin) 40 units (0.4 mL) subcut QPM insulin lispro (Humalog KwikPen (U-100) Insulin) 25 units (0.25 mL) subcut TID lisinopril 5 mg PO DAILY metformin 1,000 mg PO BID metoprolol succinate ER (Toprol XL) 50 mg PO DAILY 90 days multivitamin 1 tab PO DAILY nitroglycerin 0.4 mg sublingual Q5M PRN HPI Comments Details: Wilberto returns for follow-up. Recently seen in consultation regarding abnormal stress test. Multiple cardiovascular risk factors including diabetes, hypertension, dyslipidemia. No previously diagnosed coronary disease. With physical exertion, he gets some discomfort in the chest, possible angina but he is somewhat nondescript about that. He came for an ETT. There was no chest discomfort but had hypertensive blood pressure response and EKG suggestive of ischemia. Subsequently, underwent exercise stress MIBI. In that study, EKG was abnormal but perfusion described to be normal. Following this, sent for coronary CTA which has been reported abnormal. Overall, he feels just about the same as before. For the most part he is fine. Sometimes with activity he feels some discomfort in the left chest, possible angina but he cannot describe any further. REPLACED BY [facility] Medical History Blood pressure elevated without history of HTN Diarrhea Asthma Surgical History Hx of tonsillectomy Aftercare following bilateral shoulder joint replacement surgery History of appendectomy Family History Mother Emphysema lung Father Heart failure Brother Substance use disorder Mental health disorder Brother No problems noted. Brother No problems noted. Sister No problems noted. Daughter No problems noted. Son No problems noted. Son No problems noted. Social History Housing: House Alcohol intake: current Alcohol intake frequency: a few times a week Alcohol type: beer Patient Tobacco Use Status: Never used Tobacco e-Cigarette/Vaping Use: Never Used Second Hand Smoke Exposure: No service: No Current occupational status: employed Cognitive needs: No Hearing needs: No Vision needs: Yes (Glasses) Review of Systems Const Denies weakness ENT Denies dizziness Card Denies chest pain, Denies chest pain with activity, Denies syncope, Denies rapid heart rate, Denies pedal edema, Denies edema, Denies leg edema, Denies lightheadedness, Denies palpitations, Denies dyspnea, Denies dyspnea on exertion and Denies orthopnea Resp Denies cough, Denies dyspnea and Denies dyspnea on exertion GI Denies hematochezia and Denies change in stool character Musc Denies abnormal gait, Denies muscle cramps, Denies muscle weakness, Denies numbness, Denies radiating pain into limb and Denies tingling Neuro Denies abnormal gait, Denies dizziness, Denies syncope, Denies numbness, Denies tingling and Denies weakness Endo Denies palpitations Physical Exam Vital Signs: Last Vital Signs Pulse 88 09/05/24 14:47 BP 138/78 09/05/24 14:47 BMI result Body Mass Index 31.3 Const General: comfortable and no acute distress Orientation/consciousness: patient oriented x3 HEENT Other: Unremarkable Head: Yes normal to inspection Neck Neck: Yes normal visual inspection Chest Chest palpation & inspection: normal inspection of the chest Resp Auscultation: clear to auscultation bilaterally Cardio Palpation: normal PMI Heart sounds: S1 normal heart sound present, S2 normal heart sound present, no gallops, no murmurs and no rubs GI Palpation (GI): Soft to palpation Back/Spine/Pelvis Other: unremarkable Skin General skin exam: no rashes or lesions noted Neuro General: patient oriented x3 Extrem General: Yes normal to inspection Psych Mental Status: mental status grossly normal Assessment & Plan Assessment & Plan (1) Atherosclerotic cardiovascular disease: Code(s): I25.10 - Atherosclerotic heart disease of [place] coronary artery without angina pectoris Category: Medical (2) Type 2 diabetes mellitus with hyperglycemia: Code(s): E11.65 - Type 2 diabetes mellitus with hyperglycemia Category: Medical (3) Primary hypertension: Code(s): I10 - Essential (primary) hypertension Category: Medical (4) Hypercholesterolemia: Code(s): E78.00 - Pure hypercholesterolemia, unspecified Category: Medical Plan Cardiac studies reviewed. In the echocardiogram, LVEF > 70%. Basal inferior, mid inferior, basal inferoseptal hypokinesis. Mild aortic valve calcification. In ETT, hypertensive blood pressure response. EKG evidence of ischemia but no angina. Lexiscan myocardial perfusion imaging study shows normal perfusion. EKG again positive for ischemia. In the coronary CTA, at least moderate stenosis in the mid to distal LAD. cannot exclude severe stenosis. Minimal stenosis in the proximal to mid LAD and in the very distal LAD. Probable moderate stenosis in the mid circumflex. Mild stenosis in the RCA. FFR is pending. Overall, based on the above recommend diagnostic catheterization for further evaluation. Continue low-dose aspirin. Add beta-blockers. Increase statin dose to high- dose atorvastatin. Can take nitroglycerin sublingually as necessary. Avoid strenuous physical activity. If indeed there is concerning chest pain or other symptoms from now till the time of catheterization, to seek emergency care and we discussed that specifically. Not to take Viagra. Plan discussed with patient and significant other and they agree. Orders: Orders Cardiac Cath LT w PCI Today I25.10 - Atherosclerotic heart disease of [place] coronary artery without angina pectoris Basic Metabolic Panel Today E11.9 - Type 2 diabetes mellitus without complications Prothrombin Time INR Today E11.9 - Type 2 diabetes mellitus without complications, I25.10 - Atherosclerotic heart disease of [place] coronary artery without angina pectoris Complete Blood Count no Diff Today E11.9 - Type 2 diabetes mellitus without complications Medications: New metoprolol succinate ER (Toprol XL) 50 mg PO DAILY 90 days 90 tabs 1RF nitroglycerin do not exceed 3 doses per episode Advised to stop Viagra. 0.4 mg sublingual Q5M PRN 30 tabs 5RF chest pain R07.2 - Precordial pain atorvastatin 80 mg PO QPM 90 tabs 3RF I25.10 - Atherosclerotic heart disease of [place] coronary artery without angina pectoris Discontinued sildenafil administer 30 minutes to 4 hours before activity Discontinued Reason: Doctor's Order 100 mg PO DAILY PRN 14 tabs 0RF sexual activity N52.9 - Male erectile dysfunction, unspecified atorvastatin Discontinued Reason: Doctor's Order 10 mg PO BEDTIME 90 tabs 3RF E11.65 - Type 2 diabetes mellitus with hyperglycemia Coding Level of Care Code Est Pt Level 5 (55816) Complex EM visit Add On G2211 Diagnoses Atherosclerotic cardiovascular disease I25.10 Type 2 diabetes mellitus with hyperglycemia E11.65 Primary hypertension I10 Hypercholesterolemia E78.00
== END 2024-09-05 15:28 | disposition home or self-care (01) ==
LOC: HO.HCS 14:34
PROVIDERS: PCP Internal Medicine; Visit Provider Internal Medicine
DX: I25.10 Atherosclerotic heart disease of native coronary artery without angina pectoris (principal); E11.65 Type 2 diabetes mellitus with hyperglycemia; I10 Essential (primary) hypertension; E78.00 Pure hypercholesterolemia, unspecified
CPT/HCPCS: 99215

== ENCOUNTER 2024-09-12 09:34 | Outpatient (REF) | payer OTHER, SELFPAY ==
[2024-09-12 10:44] LABS: INTERNATIONAL NORM RATIO 0.9 (0.9-1.1); Prothrombin Time 10.8 SEC (10.9-12.4)
[2024-09-12 10:46] LABS: Hematocrit 47.4 % (42.0-52.0); Hemoglobin 15.8 g/dl (14.0-18.0); Mean Corpuscular HGB Conc 33.3 g/dl (31.0-36.0); Mean Corpuscular Hemoglobin 30.2 pg (27.0-33.0); Mean Corpuscular Volume 90.5 fL (80.0-98.0); Mean Platelet Volume 10.7 fL (9.4-12.4); Platelet Count 345 X10*3/uL (160-400); Red Blood Count 5.24 X10*6/uL (4.60-5.80); Red Cell Distribution Width 13.8 % (11.0-16.0); White Blood Count 8.4 X10*3/uL (4.8-10.8)
--- OUTSIDE RECORDS SUMMARY | 2024-09-12 10:52 | XMS_ITS | Data Portability ---
Author Organization [facility], [facility] Address [address] [place] [address] Care Team Providers Care Helicopter Specialist Name Role Phone JOSS WHEELER Electronic Transaction Implementer SHAREE MARTINEZ Yard Clerk ERNIE DEAN Vehicle Painter Assessment Encounter Date Assessment Date Assessment LastModified by Organization Details LastModified Time 09/21/2022 09/21/2022 colon 10/[address] chin [email or web address] Not available 09/21/2022 15:28:01 Plan of Treatment Reminders Order Date Submit Date Provider Last Modified By Organization Details Last Modified Time Details Appointments None recorded. Lab HbA1c (hemoglobin A1c), blood 2022 023 [facility], [address] [place], [address], 3 11:02:52 microalbumi n/creatinin e, ratio panel, urine 2022 023 [facility], [address] [place], [address], 3 12:27:09 Referral wound care referral - DM foot ulcers, both great toes 2022 023 [email or web address] Hammonds [facility], [address] [place] [address] [place], [address], 3 10:12:51 nutritionis t/dietitian referral 2022 023 [email or web address] Suze Whipple, [address] [place] [address] [place], [address], 3 10:49:02 otolaryngol ogist referral - tinnitus and TMJ same side; please eval and Rx as needed 2021 022 [email or web address] Dunia Burkett MD, [address] [place], [address], 2 11:14:12 Procedures None recorded. Surgeries None recorded. Imaging None recorded. Medication Orders cephalexin 500 mg tablet 2022 023 [facility], [address] [place] [address], [place], [address], 14:38:26 Patient TargetsNo targets recorded. Patient InstructionsNo instructions recorded. 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 Yard Clerk Referral fo r Tinnitus of left ear tinnitus and TMJ same side; please eval and Rx as needed Referring Physician: Mary Kate Weir, Family Medicine, Encounter Date: 04/06/2022 DM foot ulcers, both great t oes Referring Physician: Sheri Mata [facility], Encounter Date: 06/18/2022 Supervisor Communications And Signals/dietitian Refer ral for Uncontrolled type 2 diabetes mellitus Referring Physician: Sheri Mata [facility], Encounter Date: 06/18/2022 Results Created Date Observation Date Name Description Value Unit Range Abnormal Flag Note LastModifiedBy Organization Detail LastModifiedTime 06/18/1906/19/2022 COMP. METAB OLIC PANEL glucose 262 mg/dL 70-100 high Not Available [address], [address], 06/19/2022 11:00:07 06/18/19 23 06/19/2022 COMP. METAB OLIC PANEL BUN 13 mg/dL 7-18 Not Available [address], [address], 06/19/2022 11:00:07 06/18/19 23 06/19/2022 COMP. METAB OLIC PANEL creatinine 1.0 mg/dL 0.8-1. 3 Not Available [address], [address], 06/19/2022 11:00:07 06/18/19 23 06/19/2022 COMP. METAB OLIC PANEL B/C 13.0 ratio Not Available [address], [address], 06/19/2022 11:00:07 06/18/19 23 06/19/2022 COMP. METAB [...] be used in pregn valentina. Not Available [address], [address], 06/19/2022 11:00:07 06/18/19 23 06/19/2022 COMP. METAB OLIC PANEL sodium 140 mmol/ L 136-14 5 Not Available [address], [address], 06/19/2022 11:00:07 06/18/19 23 06/19/2022 COMP. METAB OLIC PANEL potassium 5.0 mmol/ L 3.5-5. 1 Not Available [address], [address], 06/19/2022 11:00:07 06/18/19 23 06/19/2022 COMP. METAB OLIC PANEL chloride 101 mmol/ L 96-107 Not Available [address], [address], 06/19/2022 11:00:07 06/18/19 23 06/19/2022 COMP. METAB OLIC PANEL anion gap 7.6 5.0-15 .0 Not Available [address], [address], 06/19/2022 11:00:07 06/18/19 23 06/19/2022 COMP. METAB OLIC PANEL CO2 31 mmol/ L 21-32 Not Available [address], [address], 06/19/2022 11:00:07 06/18/19 23 06/19/2022 COMP. METAB OLIC PANEL calcium 9.2 mg/dL 8.5-10 .3 Not Available [address], [address], 06/19/2022 11:00:07 06/18/19 23 06/19/2022 COMP. METAB OLIC PANEL total protein 7.2 g/dL 6.4-8. 2 Not Available [address], [address], 06/19/2022 11:00:07 06/18/19 23 06/19/2022 COMP. METAB OLIC PANEL albumin 4.2 g/dL 3.4-5. 0 Not Available [address], [address], 06/19/2022 11:00:07 06/18/19 23 06/19/2022 COMP. METAB OLIC PANEL globulin 3.0 g/dL Not Available [address], [address], 06/19/2022 11:00:07 06/18/19 23 06/19/2022 COMP. METAB OLIC PANEL A/G 1.4 ratio 0.8-2. 0 Not Available [address] [place], [address], 06/19/2022 11:00:07 06/18/19 23 06/19/2022 COMP. METAB OLIC PANEL total bilirubin 0.80 mg/dL 0.00-1 .00 Not Available [address], [address], 06/19/2022 11:00:07 06/18/19 23 06/19/2022 COMP. METAB OLIC PANEL AST 20 U/L 0-37 Not Available [address], [address], 06/19/2022 11:00:07 06/18/19 23 06/19/2022 COMP. METAB OLIC PANEL ALT 37 U/L 6-63 Not Available [address], [address], 06/19/2022 11:00:07 06/18/19 23 06/19/2022 COMP. METAB OLIC PANEL alk. phos. 117 U/L 50-136 Not Available [address], [address], 06/19/2022 11:00:07 06/18/19 23 06/19/2022 LIPID PANEL cholesterol 191 mg/dL <200 mg/dl Maty able 200-2 39 mg/dl Borde rline High >240 mg/dl High Not Available [address], [address], 06/19/2022 11:00:09 06/18/19 23 06/19/2022 LIPID PANEL triglyceride s 289 mg/dL high LIPS= Speci men Sligh tly Lipem ic. Chem Resul ts may be effec nicole. <150 mg/dL Karley l 150-1 99 mg/dL Borde rline High 200-4 99 mg/dL High >500 mg/dL Very High Not Available [address], [address], 06/19/2022 11:00:09 06/18/19 23 06/19/2022 LIPID PANEL direct HDL 54 mg/dL <40 mg/dl - Major Risk for CHD >60 mg/dl - Negat garry Risk for CHD Not Available [address], [address], 06/19/2022 11:00:09 06/18/19 23 06/19/2022 DIREC T [...] r is not neces audrey. Not Available [address], [address], 06/19/2022 11:00:11 06/18/19 23 06/19/2022 HGB A1C [...] furth er confi rmati on Not Available [address], [address], 06/19/2022 12:22:00 06/18/19 23 06/19/2022 HGB A1C estimated average glucose 260.4 mg/dL Not Available [address], [address], 06/19/2022 12:22:00 09/13/19 23 09/14/2022 HGB A1C [...] furth er confi rmati on Not Available [address], [address], 09/14/2022 11:02:52 09/13/19 23 09/14/2022 HGB A1C estimated average glucose 180.0 mg/dL Not Available [address], [address], 09/14/2022 11:02:52 09/13/19 23 09/14/2022 MICRO ALBUM IN/CR EATIN INE RATIO PANEL , URINE microalbumin 8.0 mg/L 1.3-20 .0 Not Available [address], [address], 09/14/2022 12:27:09 09/13/19 23 09/14/2022 MICRO ALBUM IN/CR EATIN INE RATIO PANEL , URINE creatinine urine 100.6 mg/dL 30.0-1 25.0 Not Available [address], [address], 09/14/2022 12:27:09 09/13/19 23 09/14/2022 MICRO ALBUM IN/CR EATIN INE RATIO PANEL , URINE microalb/cre at ratio 8.0 mg/g_ creat 0.0-29 .0 Not Available [address], [address], 09/14/2022 12:27:09 06/10/20 22 06/10/2022 US abdom [...] wnl IVC: appear s wnl WALLACE SWEET [facility] [address] [facility], [place], [address], 06/11/2022 07:07:36 10/14/19 23 09/17/2022 colon oscop y proce dure (PROC ) No observ ation record ed. BARCODE Not Available 2022 11:32:22 Result Notes None recorded. Problems Name Problem SNOMED Code Status Onset Date Resolution Date Notes Provider Name and Address Organization Details Recorded Time Essential hypertensi on 89821163 Active Not Available [facility] 3 21:02:46 Excessive cerumen in ear canal 586059788 Active Not Available [facility] 3 21:02:46 Anxiety 79805645 Active 2016 Not Available [facility] 3 21:02:46 Neuropathy due to diabetes mellitus 862139956 Active 2018 Not Available [facility] 3 21:02:46 Mixed hyperlipid emia 759352334 Active 2006 Not Available [facility] 3 21:02:46 Internal hemorrhoid s 19817978 Completed 200205/03/2013 Not Available [facility] 3 02:03:12 Effusion of joint of shoulder region 52205722 Completed 03/27/2014 Wallace Sweet MD [address] [place] [address], [address] , [facility] 4 05:26:27 Impotence of organic origin Active 2007 Not Available [facility] 3 21:02:46 Carpal tunnel syndrome 67496666 Active 2001 Not Available [facility] 3 21:02:46 Diabetes mellitus 65942919 Completed 200603/27/2014 Wallace Sweet MD [address] [place] [address], [address] , [facility] 4 05:26:27 Disorder of bursa of shoulder region 68147430 Completed 200705/03/2013 Not Available [facility] 3 02:04:09 Temporoman dibular joint disorder 39039136 Completed 200103/27/2014 Wallace Sweet MD [address] [place] [address], [address] , [facility] 4 05:26:43 Shoulder pain 04295435 Completed 200707/29/2008 Not Available [facility] 3 03:03:47 Shoulder pain 65652894 Completed 05/03/2013 Not Available [facility] 3 02:01:00 Benign essential hypertensi on 3834005 Completed 01/19/2012 Not Available [facility] 3 03:03:47 Impacted cerumen 14926271 Completed 200005/03/2013 Not Available [facility] 3 02:02:10 Pure hyperchole sterolemia 289558760 Completed 200203/27/2014 Wallace Sweet MD [address] [place] [address], [address] , [facility] 4 05:26:27 Medial epicondyli tis 49853880 Completed 200705/03/2013 Not Available [facility] 3 02:04:00 Obesity 738659499 Active 2006 Not Available [facility] 3 21:02:46 Abdominal pain 65739485 Completed 200205/03/2013 Not Available [facility] 3 02:01:20 On examinatio n - a rash Completed 05/03/2013 Not Available [facility] 3 02:00:46 Type 2 diabetes mellitus without complicati on 295939887 Completed 03/27/2014 Wallace Sweet MD [address] [place] [address], [address] , [facility] 4 05:26:43 Type 2 diabetes mellitus without complicati on 879656681 Completed 200601/05/2012 Not Available [facility] 3 03:03:47 Hearing loss 39508189 Active 2001 Not Available [facility] 3 21:02:46 Renal disorder due to type 2 diabetes mellitus 646580329 Active 2006 Not Available [facility] 3 21:02:46 Elevated blood-pres sure reading without diagnosis of hypertensi on 555679124 Completed 200103/27/2014 Wallace Sweet MD [address] [place] [address], [address] , [facility] 4 05:26:27 Sprain of knee and leg Completed 200205/03/2013 Not Available [facility] 3 02:03:04 Uncontroll ed type 2 diabetes mellitus 413339564 Active 2007 Not Available [facility] 3 21:02:46 Scrotal varices Active 2001 Not Available [facility] 3 21:02:46 Otogenic otalgia 43963074 Completed 200105/03/2013 Not Available [facility] 3 02:03:18 Notes:Some problems listed i n Document: #[id number] could not be added to this patient's chart. Please review this document and add these problems to the patient's chart manually as needed. Problem Notes None recorded. Procedures Surgical History Date Name Laterality Status Provider Name and Address Organization Details Recorded Time 01/09/20 22 Fundus Photography completed Erna Villalpando, OD [address] [place] [address], [address], [facility] 01/09/2022 13:35:41 04/25/20 21 Fundus Photography completed Erna Villalpando, OD [address] [place] [address], [address], [facility] 04/25/2021 09:33:54 04/25/20 21 Optical Coherence Tomography (Retina) completed Erna Villalpando, OD [address] [place] [address], [address], [facility] 04/25/2021 09:34:09 05/23/20 19 Cerumen Removal - Irrigation/Lavag e completed Anabelle Bragg [facility] 05/23/2019 11:33:23 10/06/19 19 Cerumen Removal - Irrigation/Lavag e completed Yvonne Edwards [facility] 10/05/2018 14:20:07 01/08/20 18 Cerumen Removal - Irrigation/Lavag e completed Akua Pizano LPN [facility] 01/07/2018 16:13:04 07/19/19 18 Cerumen Removal - Irrigation/Lavag e completed Mary Lott LPN [facility] 07/19/2017 11:26:34 11/25/19 17 Glucose Meter Teaching completed Akua Pizano LPN [facility] 11/24/2016 09:44:01 09/20/19 17 Cerumen Removal - Irrigation/Lavag e completed Karina Eseppi [facility] 09/19/2016 13:28:46 12/17/19 16 Cerumen Removal completed Michelle Mary LPN [facility] 12/17/2015 11:32:24 03/07/20 15 Cerumen Removal completed Viri Gomez RN [facility] 03/07/2015 17:46:53 06/06/20 14 Cerumen Removal completed Shannan VelasquezGilles CONNOLLY [facility] 06/06/2014 09:00:42 10/06/19 13 Cerumen Removal completed Michelle Mary LPN [facility] 10/05/2012 11:59:21 04/14/20 12 Other (specify) completed Domenic Collazo MD [address] [place] [address], [address], [facility] 04/04/2014 14:03:38 01/19/20 12 Cerumen Removal completed Cate Sims RN [facility] 01/19/2012 12:04:10 12/22/19 12 Treatment and Advice completed Ammy Chou OT [address] [place] [address], [address], [facility] 12/22/2011 13:00:06 08/11/19 11 Cerumen Removal completed [facility] 08/11/2010 16:18:17 10/15/19 10 Cerumen Removal completed Zo Johnston LPN [place] Irvin Cardenas y [facility] 10/14/2009 11:03:38 08/08/19 10 Aspiration Major Joint/Bursa completed Wallace Sweet MD [address] [place] [address], [address], [facility] 08/08/2009 12:04:47 06/14/19 10 Other (specify) completed Domenic Collazo MD [address] [place] [address], [address], [facility] 04/04/2014 14:03:38 12/20/19 09 Cerumen Removal completed Marge Richey NP [address] [place] [address], [address], [facility] 12/19/2008 09:54:31 06/14/18 84 Appendectomy completed Domenic Collazo MD [address] [place], [address], [facility] 04/04/2014 14:03:38 06/14/18 71 Other (specify) completed Domenic Collazo MD [address] [place], [address], [facility] 04/04/2014 14:03:38 Imaging Results Imaging Date Name Status LastModified by Organiz ation Details LastModified Time 06/10/2022 US abdomen limited right upper quadrant completed [facility] [address] [place], [address], 06/11/2022 07:07:36 09/17/2022 colonoscopy procedure (PROC) completed [facility] Information not available 10/13/2022 11:32:22 Procedure Notes None recorded. Medical Equipment None Reported. Allergies Allergen ID Allergen Name Allergen Category Reaction Reaction Severity Criticality Documentation Date Start Date Code Code System Note Provider Name and Address Organization Details Recorded Time Trulicity medicatio n abdominal pain moderate Not available 03/22/2020 89557 96 RxNorm Jumana Johnson [facility], [facility] 11:01:03 Medications Name Sig Start Date [...] cm 84 /min 98.1 [degF] 31.1 kg/m2 86655.7 5 g 136 mm[Hg] 74 mm[Hg] Socorro Mckeon [facility] 2 11:09:57 Date Recorded Body height Body mass index (BMI) Body weight Body temperature Heart rate Oxygen saturation Oxygen saturation in Arterial blood by Pulse oximetry Systolic blood pressure Diastolic blood pressure Provider Name and Address Organization Details Last Updated DateTime 3 177.8 cm 31.7 kg/m2 622077. 91 g 98.1 [degF] 90 /min 97 % 97 % 140 mm[Hg] 66 mm[Hg] VICKI Funes [facility] 3 14:03:45 Date Recorded Body height Heart rate Oxygen saturation Oxygen saturation in Arterial blood by Pulse oximetry Systolic blood pressure Diastolic blood pressure Provider Name and Address Organization Details Last Updated DateTime 3 177.8 cm 80 /min 97 % 97 % 128 mm[Hg] 60 mm[Hg] Gloria Crockett MA [facility] 3 14:42:18 Date Recorded Body height Heart rate Oxygen saturation Oxygen saturation in Arterial blood by Pulse oximetry Systolic blood pressure Diastolic blood pressure Provider Name and Address Organization Details Last Updated DateTime 3 177.8 cm 82 /min 96 % 96 % 112 mm[Hg] 60 mm[Hg] Gloria Crockett MA [facility] 3 08:07:48 Date Recorded Body weight Body temperature Heart rate Respiratory rate Oxygen saturation Oxygen saturation in Arterial blood by Pulse oximetry Systolic blood pressure Diastolic blood pressure Provider Name and Address Organization Details Last Updated DateTime 3 88150.4 7 g 97.2 [degF] 88 /min 16 /min 96 % 96 % 144 mm[Hg] 69 mm[Hg] Gloria Crockett MA [facility] 3 15:25:48 Date Recorded Body height Body mass index (BMI) Body weight Systolic blood pressure Diastolic blood pressure Provider Name and Address Organization Details Last Updated DateTime 09/21/2022 177.8 cm 32.7 kg/m2 676242.0 6 g 128 mm[Hg] 64 mm[Hg] Gloria Crockett MA [facility] 3 15:11:54 Social History Question Answer Notes LastModified by Organizat ion Details LastModified Time Tobacco Smoking Status Never Smoker Not Available [facility] 2011 04:53:49 Do You Have An Advance Directive? No [email or web address] Information not available 2011 What Is Your Level Of Alcohol Consumption? Moderate 1-2 Every 2-3 Weeks [email or web address] Information not available 07/22/2022 What Is Your [...] not available 05/23/2019 What Is Your Occupation? [employer] Information not available 07/28/2012 How [...] Of Your Most Recent Tobacco Screening? 09/21/2022 [email or web address] Information not available 09/21/2022 How Many Children [...] Other Forms Of Tobacco Or Nicotine? No [email or web address] Information not available 07/22/2022 Sex: Unknown Functional [...] Td(adult) unspecified formulation 7 completed Not Available [facility] 10/01/2022 21:02:47 influenza, unspecified formulation 7 completed Not Available [facility] 10/01/2022 21:02:47 pneumococcal polysaccharide PPV23 7 completed Not Available [facility] 10/01/2022 21:02:47 influenza, unspecified formulation 7 completed Not Available [facility] 10/01/2022 21:02:47 influenza, unspecified formulation 8 completed Not Available [facility] 10/01/2022 21:02:47 Influenza, split virus, quadrivalent, PF 3 completed Not Available [facility] 07/01/2019 02:26:42 Influenza, split virus, trivalent, preservative 4 completed Not Available [facility] 10/01/2022 21:02:47 Influenza, split virus, quadrivalent, PF 9 completed Not Available [facility] 07/01/2019 02:38:00 Tdap 2 completed Wallace Sweet MD [address] [place] [address], [address], [facility] 12/02/2021 13:46:50 COVID-19, mRNA, LNP-S, PF, 30 mcg/0.3 mL dose 1 completed Not Available [facility] 10/01/2022 21:02:47 COVID-19, mRNA, LNP-S, PF, 30 mcg/0.3 mL dose 1 completed Not Available [facility] 10/01/2022 21:02:47 Past Encounters Encounter ID Performer Location Encounter Start Date Encounter Closed Date Diagnosis/Indication Diagnosis SNOMED-CT Code Diagnosis ICD10 Code Diagnosis Note [id number] [facility], OFFICE [address] [place] [address] 10/27/2000 10:45:00 07/04/2008 02:02:29 [id number] [facility], OFFICE [address] [place] [address] 11/25/2001 10:38:36 07/04/2008 02:02:29 [id number] [facility], OFFICE [address] [place] [address] 11/22/2001 12:58:05 07/04/2008 02:02:29 [id number] [facility], OFFICE [address] [place] [address] 02/17/2002 10:16:06 07/04/2008 02:02:29 [id number] [facility], OFFICE [address] [place] [address] 04/11/2002 10:38:32 07/04/2008 02:02:29 [id number] [facility], OFFICE [address] [place] [address] 05/18/2002 08:54:31 07/04/2008 02:02:29 [id number] [facility] - [facility] [address] [place] [address] 06/23/2002 08:25:25 07/04/2008 02:02:29 [id number] [facility], OFFICE [address] [place] [address] 10/27/2002 10:38:56 07/04/2008 02:02:29 [id number] [facility], OFFICE [address] [facility] [place] [address] 12/04/2002 14:46:36 07/04/2008 02:02:29 [id number] LAB - [facility] [address] [place] [address] 12/04/2002 00:00:00 07/04/2008 02:02:29 [id number] FP [facility], OFFICE [address] [facility] [place] [address] 12/19/2002 16:00:41 07/04/2008 02:02:29 [id number] FP, [facility], OFFICE [address] [facility] [place] [address] 05/21/2003 13:45:19 05/21/2003 17:33:03 [id number] FP [facility], OFFICE [address] [facility] [place] [address] 11/01/2003 16:14:38 11/02/2003 10:55:10 [id number] [facility], OFFICE [address] [facility] [place] [address] 06/09/2004 09:12:28 06/09/2004 14:35:16 [id number] FP, [facility], OFFICE [address] [facility] [place] [address] 07/17/2005 09:52:58 07/17/2005 15:36:35 [id number] FP [facility], OFFICE [address] [facility] [place] [address] 07/05/2006 10:47:49 07/05/2006 15:09:32 [id number] LAB - [facility] [address] [facility] [place] [address] 07/06/2006 07:27:25 07/06/2006 07:27:29 [id number] FP [facility], OFFICE [address] [facility] [place] [address] 07/09/2006 13:58:02 07/09/2006 15:28:32 [id number] LAB - [facility] [address] [facility] [place] [address] 07/09/2006 14:56:53 07/09/2006 14:57:19 [id number] FP, [facility], OFFICE [address] [facility] [place] [address] 07/16/2006 00:00:00 07/04/2008 02:02:29 [id number] [facility], OFFICE [address] [facility] [place] [address] 07/23/2006 07:25:57 07/23/2006 11:32:05 [id number] [facility], OFFICE [address] [place] 07/26/2006 13:43:23 07/26/2006 16:17:18 [id number] LAB - [facility] [address] Anand[address] 08/09/2006 07:13:41 08/09/2006 07:13:45 [id number] [facility], OFFICE [address] [place] 6 08/27/2006 08:04:39 08/27/2006 11:15:54 [id number] [facility], OFFICE [address] [place] 6 08/24/2006 08:24:16 09/13/2006 14:24:02 [id number] [facility], OFFICE [address] [place] [address] 12/21/2006 14:50:21 12/23/2006 08:29:08 [id number] LAB - [facility] [address] 12/24/2006 07:43:32 12/24/2006 07:43:36 [id number] LAB - [facility] [address] 03/16/2007 07:12:11 03/16/2007 07:12:16 [id number] [facility], OFFICE [address] [place] [address] 03/22/2007 15:01:47 07/04/2008 02:02:29 [id number] [facility], OFFICE [address] [place] [address] 05/23/2007 09:05:39 07/04/2008 02:02:29 [id number] LAB - [facility] [address] [place] [address] 05/27/2007 07:46:56 05/27/2007 07:47:00 [id number] [facility], OFFICE [address] [place] [address] 07/22/2007 10:48:34 07/04/2008 02:02:29 [id number] CLA[facility], OFFICE [address] [place] [address] 12/22/2007 14:13:35 07/04/2008 02:02:29 [id number] LAB - [facility] [address] [place] [address] 12/21/2007 07:18:47 12/21/2007 07:18:53 [id number] Physical Therapy, [facility] [address] Anand[address] 12/28/2007 16:24:57 12/29/2007 09:55:50 [id number] [facility], OFFICE [address] [facility] ANN HERNANDEZ[address] 6 01/16/2008 13:54:48 07/04/2008 02:02:29 [id number] Physical Therapy, [facility] [address] [place] [address] 01/11/2008 16:24:51 01/24/2008 14:08:00 [id number] [facility], OFFICE 70 [facility] [place] 6 02/22/2008 08:46:10 07/04/2008 02:02:29 [id number] [facility], OFFICE [address] [facility] [place] [address] 02/27/2008 10:14:54 07/04/2008 02:02:29 [id number] LAB - [facility] [address] [place] [address] 6 04/19/2008 07:02:00 04/19/2008 07:02:05 [id number] CLAUDE [facility], OFFICE [address] [facility] [place] [address] 6 05/03/2008 09:17:10 07/04/2008 02:02:29 [id number] [facility], OFFICE [address] [facility] [place] [address] 6 05/08/2008 10:28:13 07/04/2008 02:02:29 [id number] [facility], OFFICE [address] [facility] [place] [address] 6 05/17/2008 10:44:38 07/04/2008 02:02:29 [id number] [facility], OFFICE [address] [facility] [place] [address] 6 07/26/2008 10:36:24 07/30/2008 11:01:51 [id number] [facility], OFFICE [address] [facility] [place] [address] 6 11/07/2008 10:33:14 11/12/2008 14:37:51 [id number] Radiology , [facility] 70 [facility] [place] [address] 11/07/2008 11:51:45 11/09/2008 11:42:29 [id number] , [facility], OFFICE 70 [facility] [place]DEZ[place] 6 12/19/2008 09:10:58 12/19/2008 14:12:15 [id number] , [facility], OFFICE [address] [facility] [place] [address] 02/20/2009 16:27:04 02/21/2009 14:15:54 [id number] LAB - [facility] 70 [facility] [place] 6 10/29/2008 07:04:44 10/29/2008 07:04:54 [id number] Eye Care, [facility] 70 [facility] D[place]ANN[address] 6 12/04/2008 08:35:01 12/04/2008 14:08:24 [id number] LAB - [facility] 70 [facility] [place] [address] 02/05/2009 08:52:32 02/05/2009 08:52:40 [id number] [facility], OFFICE [address] [facility] [place] [address] 6 08/08/2009 10:49:48 08/09/2009 11:28:19 [id number] [facility], OFFICE [address] [place] [address] 6 09/17/2009 10:57:01 09/19/2009 12:48:32 [id number] [facility], OFFICE [address] [place] [address] 10/01/2009 09:16:37 10/01/2009 14:51:25 [id number] , [facility], OFFICE [address] [facility] [place] [place] [address] 6 10/14/2009 10:06:27 10/14/2009 12:00:02 [id number] , [facility], OFFICE [address] [place] [address] 01/16/2010 07:41:39 01/16/2010 12:37:13 [id number] , [facility], OFFICE [address] [facility] [place] [place] [address] 08/11/2010 14:49:16 08/14/2010 13:29:10 [id number] [facility], OFFICE [address] [facility] [place] [place] [address] 6 09/04/2010 11:12:12 09/09/2010 08:33:12 [id number] [facility], OFFICE 70 [facility] [place] [address] 01/14/2011 10:09:19 01/14/2011 11:23:50 [id number] [facility], OFFICE 70 [facility] [place] [address] 04/10/2011 11:50:57 04/13/2011 13:24:56 [id number] [facility], OFFICE 70 [facility] [address] 6 12/22/2011 07:59:48 12/22/2011 14:26:16 [id number] Radiology , [facility] 70 [place] [address] 6 12/22/2011 08:46:23 12/23/2011 11:15:39 [id number] Physical Therapy, [address] [address] 12/22/2011 12:29:23 12/23/2011 07:34:56 [id number] [facility], OFFICE [address] [place] [address] 01/05/2012 08:28:16 01/05/2012 09:29:20 [id number] Physical Therapy, [facility] [address] [place] [address] 01/05/2012 12:21:57 01/05/2012 13:09:59 [id number] Physical Therapy, [address] [address] 01/14/2012 14:16:39 01/15/2012 07:40:59 [id number] Domenic Collazo MD [facility], OFFICE [address] [place] [address] 6 01/19/2012 07:32:37 01/19/2012 09:15:36 [id number] Nutrition -[facility] 70 [place] [address] 6 02/10/2012 08:18:57 02/10/2012 09:08:04 [id number] Domenic Collazo MD , [facility], OFFICE [address] [place] [address] 6 07/28/2012 08:56:22 07/28/2012 09:46:12 [id number] Makayla Solares [facility], OFFICE [address] [place] [address] 6 10/05/2012 11:05:15 10/05/2012 15:55:29 [id number] Wallace Sweet MD , [facility], OFFICE [address] [place] [address] 06/13/2013 08:52:36 06/13/2013 09:57:34 Influenza vaccine needed [id number] 106 Mixed hyperlipidemia 278041223 continue to work on diet and exercise as discussed Uncontroll ed type 2 diabetes mellitus 039022421 Benign ess ential hypertension 4273883 continue to work on diet ,exercisea nd lowering salt intake as discussed [id number] HAFSA Law , [facility], OFFICE [address] [place] [address] 6 08/04/2013 15:13:51 08/07/2013 13:22:35 Impacted cerumen 70052911 irrigated in clinic no complicati ons. [id number] Gloria Murphy , [facility], OFFICE [address] [place] [address] 03/26/2014 16:14:43 03/26/2014 16:49:19 Benign essential hypertension 7292877 Mixed hyperlipidemia 238094240 Uncontroll ed type 2 diabetes mellitus 215951602 Renal diso rder due to type 2 diabetes mellitus 695796620 Benign par oxysmal positional vertigo 147228295 [id number] Gloria Murphy [facility]ocr[facility], [address] [address] 04/04/2014 13:14:50 04/04/2014 15:08:28 Uncontrolled type 2 diabetes mellitus 419757059 -continue metformin 1g 2x/d -stop glyburide, change to glipizide 10mg 2x/d -start victoza 0.6 mg once daily for 1 week; then increase to 1.2 mg once daily Obesity 674928590 Essential hypertension 85956044 -lisinopri l Mixed hyperlipidemia 054930238 -lovastati n [id number] Taisha Johnston Physical Therapy, [address] [place] [address] 04/16/2014 16:18:50 04/17/2014 08:27:41 Benign paroxysmal positional vertigo 377834566 [id number] Taisha Johnsotn Physical Therapy, [address] [place] [address] 2014 12:01:49 2014 13:34:38 Benign paroxysmal positional vertigo 019649092 [id number] [facility] [address] [place] [address] 05/04/2014 13:01:46 05/04/2014 14:08:08 Uncontrolled type 2 diabetes mellitus 141408254 -continue metformin 1g 2x/d -continue glipizide 10mg 1 x/d, may decrease to 1/2 tab daily if less than 100mg/dL after taking this medicine and then stop if still less than 100mg/dL -continue victoza 1.2 mg subcut once daily, may then decrease and stop if regularly less than 100mg/dL Obesity 534372162 Essential hypertension 77016265 -lisinopri l Mixed hyperlipidemia 278606584 -lovastati n [id number] [facility], OFFICE [address] [place] [address] 06/06/2014 08:18:24 06/08/2014 08:28:39 Excessive cerumen in ear canal 251919987 recurrence [id number] Johanne Maribel , [facility], OFFICE [address] [place] [address] 08/13/2014 16:22:39 08/13/2014 17:04:10 Benign essential hypertension 2994522 Mixed hyperlipidemia 527796082 Type 2 sailaja betes mellitus without complication 598313694 [id number] JUANIS Farfan [facility], OFFICE [address] [place] [address] 11/14/2014 16:22:50 11/14/2014 16:48:58 Pain in right lower limb 579412859 upper leg, post fall on ice 2-3 months, not fulle recovered, will refer to PT for further evaluation , advised to use ice alternatin g w/heat x 20 m. X 3-4 x/day, Ibuprofen 200 mg 3 tabs TID for the next 7-10d, take w/food, F/U PRN, may need further evaluation w/Orthoped ist, agrees w/plan. [id number] Jumana Johnson MA , [facility], OFFICE [address] [place] [address] 12/10/2014 16:14:55 12/10/2014 16:41:53 Mixed hyperlipidemia 133939055 Benign ess ential hypertension 6578127 Type 2 sailaja betes mellitus without complication 023109653 Obesity 342040752 [id number] Mary Kate Weir MD , [facility], OFFICE [address] [place] [address] 03/07/2015 16:40:20 03/08/2015 11:19:32 Lifestyle 751264880 Impacted cerumen 13338749 bilateral impacted cerumen, rinsed out with resolution . [id number] Wallace Sweet MD , [facility], OFFICE [address] [place] [address] 07/08/2015 08:36:19 07/08/2015 09:15:01 Mixed hyperlipidemia 849305525 E78.2 Benign ess ential hypertension 4202768 I10 Uncontroll ed type 2 diabetes mellitus 692898194 E11.65 Acute situ ational disturbance 882594857 F43.20 Chest pain 97194851 R07. 9 [id number] Wallace Sweet MD , [facility], OFFICE [address] [place] [address] 10/07/2015 16:18:20 10/07/2015 16:49:45 Benign essential hypertension 6787709 I10 . Mixed hyperlipidemia 267 824520 E78.2 continue to work on diet and exercise as discussed Uncontroll ed type 2 diabetes mellitus 744489508 E11.65 Obesity 417801428 E66.9 Impotence 989452951 N52. 9 [id number] Sarika Rose RN, BSN, [facility] , [address] [address] 10/16/2015 15:17:49 10/16/2015 16:45:28 Uncontrolled type 2 diabetes mellitus 770299654 E11.65 [id number] Kaye Zhao, JUANIS-AIDA , [facility], OFFICE [address] [place] [address] 12/17/2015 10:18:10 12/18/2015 10:57:34 Impacted cerumen 09085196 H61.23 irrigated without issue in clinic. [id number] Wallace Sweet MD , [facility], OFFICE [address] [place] [address] 01/06/2016 15:21:50 01/06/2016 16:18:35 Benign essential hypertension 7937925 I10 Blood pressure at goal Mixed hyperlipidemia 267 852854 E78.2 continue to work on diet and exercise as discussed Uncontroll ed type 2 diabetes mellitus 189808691 E11.65 [id number] Sarika Rose RN, BSN, [facility] DM Education , [facility] [address] [facility] [place] [address] 01/15/2016 15:14:26 01/21/2016 12:10:03 Uncontrolled type 2 diabetes mellitus 545156307 E11.65 Met with Wilberto today for diabetes [...] of regular physical activity on blood sugars. [id number] Sarika Rose RN, BSN, [facility] Education , [facility] [address] [place] [address] 03/11/2016 14:57:26 03/11/2016 16:55:46 Uncontrolled type 2 diabetes mellitus 031667046 E11.65 Met with Wilberto today for follow [...] limiting cardiovasc ular risk. Other strategies for [facility] heart health. [id number] Wallace Sweet MD , [facility], OFFICE [address] [place] [address] 04/28/2016 08:47:08 04/28/2016 10:07:36 Adult health examination 058469865 Z00.00 see Risk Assessment and Lifestyle Change Counseling section above Counseling 086713799 Z71 .9 Mixed hyperlipidemia 267 550805 E78.2 continue to work on diet and exercise as discussed Uncontroll ed type 2 diabetes mellitus 048499901 E11.65 Impotence of organic origin 103910713 N52.9 Family his tory of malignant neoplasm of thyroid 468750808 Z80.8 [id number] Eran Villalpando, OD Eye Care, [facility] [address] [place] [address] 06/03/2016 14:09:37 06/03/2016 16:01:10 Type 2 diabetes mellitus without complication 533652275 E11.9 uncontroll ed, no diabetic retinopath y OU, pt ed, encouraged good BS control to maintain good eye health and vision. RTC 1 yr CEE or sooner with vision changes. [id number] Wallace Sweet MD , [facility], OFFICE [address] [place] [address] 08/04/2016 08:48:09 08/04/2016 09:18:49 Benign essential hypertension 6564750 I10 Mixed hyperlipidemia 267 268440 E78.2 Uncontroll ed type 2 diabetes mellitus 823200175 E11.65 Disorder o f nervous system due to type 2 diabetes mellitus 124261163 E11.40 Overweight 540093571 E66 .3 [id number] Sarika Rose RN, BSN, [facility] DM Education , [facility] [address] [place] [address] 09/01/2016 15:35:52 09/02/2016 09:08:30 Uncontrolled type 2 diabetes mellitus 069880844 E11.65 Met with Wilberto today for follow up of his diabetes education, kindly referred by Dr. Sweet. Wilberto has had diabetes for about 10 years now. Most recently, his A1C was 10.2% in [facility]. We reviewed how he has had an [...] limiting cardiovasc ular risk. Other strategies for [facility] heart health. [id number] John Luna MD FP, [facility], OFFICE [address] [place] [address] 09/19/2016 13:00:28 09/19/2016 15:23:49 Impacted cerumen 83507297 H61.23 Otalgia 79136842 H92.03 likley due to cerumen [id number] Mani Padron MD FP, [facility], OFFICE [address] [place] [address] 11/23/2016 11:29:28 11/24/2016 13:05:04 Acute bronchitis 95039959 J20.9 OOW for 2 days , tessalon perles, rest, liquids [id number] Wallace Sweet MD , [facility], OFFICE [address] [place] [address] 11/24/2016 08:39:51 11/24/2016 09:46:06 Benign essential hypertension 4268429 I10 Mixed hyperlipidemia 267 714350 E78.2 Uncontroll ed type 2 diabetes mellitus 856321405 E11.65 [id number] Sarika Rose RN, BSN, [facility] DM Education , [facility] [address] [place] [address] 01/05/2017 14:22:22 01/11/2017 14:06:39 Uncontrolled type 2 diabetes mellitus 343878406 E11.65 Met with Wilberto today for follow [...] more. He reports he is flying to [place] in 2 weeks and is nervous about [...] once we decide what to prescribe him. [id number] Wallace Sweet MD , [facility], OFFICE [address] [place] [address] 03/08/2017 16:58:56 03/08/2017 17:43:47 Benign essential hypertension 3502894 I10 Mixed hyperlipidemia 267 247185 E78.2 Uncontroll ed type 2 diabetes mellitus 319011795 E11.65 [id number] Sarika Rose RN, BSN, [facility] DM Education , [facility] [address] [place] [address] 03/16/2017 15:32:36 03/18/2017 08:48:45 Uncontrolled type 2 diabetes mellitus 642077951 E11.65 Met with Wilberto today for follow [...] testing often. He reports his trip to [place] went well during the summer when he was nervous he would eat too much food while he was away. He was at a wedding. He reports he tends to gain 15 lbs when he is in [place] and this was the first trip he did not gain any weight because he continued to be careful while he was away. He continues to takeMetfor min 1,000 mg BID, Glipizide 10 mg BID and Victoza 1.8 mg QD. [facility]. He was [...] of regular physical activity on blood sugars. [id number] Wallace Sweet MD , [facility], OFFICE [address] [place] [address] 07/13/2017 14:38:02 07/14/2017 08:06:17 Benign essential hypertension 7804637 I10 Mixed hyperlipidemia 267 709303 E78.2 Uncontroll ed type 2 diabetes mellitus 243958202 E11.65 [id number] JUANIS Farfan , [facility], OFFICE [address] [place] [address] 07/19/2017 09:59:16 07/19/2017 11:23:32 Screening for malignant neoplasm of colon 341384677 Z12.11 Referral for a DIRECT booked colonoscop y. This patient is a healthy ASA Class 1 or 2 patient (only mild systemic disease), or a STABLE, well controlled insulin dependent diabetic. They do not have serious cardiac disease ie MT/angiopl asty within 1 year, symptomati c CHF; renal failure with CKD 4 or 5; take Coumadin, Plavix, Aggrenox, etc. Acholic stool 30773372 R 19.5 Abnormal colored elif, labs & US ordered as written below, further treatment pending results. Impacted cerumen 2498142 6 H61.23 Both ears successful ly cleared of cerumen. Advised to use Debrox gtts. to keep ears patent. [id number] Lauren Khan NP , [facility], OFFICE [address] [place] [address] 09/27/2017 11:53:22 09/28/2017 09:35:28 Acute bronchitis 78709321 J20.9 Reassured. Lungs completely clear. Enc force fluids, steam inhalation prn, adequate rest. OK to continue otc cold/cough meds prn for symptom management . F/u here if not gradually improving, symptoms worsening, especially if develops fevers or increased SOB. Codeine cough syrup prn primarily for night time use. Warned can cause drowsiness . [id number] Tata Silva PA-C , [facility], OFFICE [address] [place] [address] 10/01/2017 14:36:18 10/01/2017 16:03:25 Acute low back pain 978189478 M54.5 09/25 came out with cold/bronc hitis [...] alternate hot/cold packs. follow up 4-5 days. [id number] John Luna MD , [facility], OFFICE [address] [place] [address] 11/13/2017 09:44:36 11/13/2017 11:25:52 Dysfunction of eustachian tube 71437910 H69.91 supportive care f/u if not improved in 2-3 weks [id number] Lauren Khan NP , [facility], OFFICE [address] [place] [address] 01/07/2018 14:46:25 01/10/2018 08:54:41 Hearing loss 59342809 H91.91 Impacted cerumen 5016075 6 H61.23 Nurse in as above. TM's [...] phone next week. Consider ENT/audiol ogy referral. [id number] Wallace Sweet MD , [facility], OFFICE [address] [place] [address] 04/19/2018 13:34:53 04/19/2018 14:18:10 Benign essential hypertension 2081761 I10 Mixed hyperlipidemia 267 612409 E78.2 Uncontroll ed type 2 diabetes mellitus 629499380 E11.65 Hearing loss 98320923 H9 1.91 Anxiety 09911296 F41.9 [id number] Sarika Rose, RN, BSN, [facility] DM Education , [facility] [address] [place] [address] 06/27/2018 08:42:53 07/04/2018 09:48:45 Uncontrolled type 2 diabetes mellitus 080967813 E11.65 Met with Wilberto clark for follow [...] of regular physical activity on blood sugars. [id number] Sarika Rose RN, BSN, [facility] DM Education , [facility] [address] [place] [address] 08/02/2018 07:50:46 08/02/2018 11:32:49 Uncontrolled type 2 diabetes mellitus 479373500 E11.65 Met with Wilberto clark for follow [...] Other strategies for maintainin g heart health. [id number] Erna Villalpando, [facility], [facility] [address] [place] [address] 08/02/2018 09:03:25 08/02/2018 15:56:51 Type 2 diabetes mellitus without complication 311856207 E11.9 uncontroll ed, no diabetic retinopath y OU, pt ed, encouraged good BS control to maintain good eye health and vision. RTC 1 yr CEE or sooner with vision changes. [id number] POORNIMA Willis , [facility], OFFICE [address] [place] [address] 10/05/2018 13:03:14 10/06/2018 08:27:14 Uncontrolled type 2 diabetes mellitus 131822195 E11.65 Pt to do labs, f/u w/ PCP in the next month Active or passive immunization 623011551 Z23 Pt declined TD for today despite knowing the risk of disease and Mixed hyperlipidemia 267 556565 E78.2 Pt to have labs done and schedule w/ PCP within the next month- discussed goal is LDL < 100 Impacted cerumen 2990547 6 H61.23 Bilateral impacted cerumen- ear lavage done Essential hypertension 58475901 I10 Pt to have labs done and schedule w/ PCP within the next month Neuropathy due to diabetes mellitus 047092752 E11.40 pt states- chronic- reviewed improved control of BS's will decrease symptoms. [id number] Wallace Sweet MD FP, [facility], OFFICE [address] [place] [address] 03/30/2019 08:30:29 03/30/2019 09:12:31 Mixed hyperlipidemia 922370009 E78.2 Active or passive immunization 511569383 Z23 Benign ess ential hypertension 2929756 I10 Neuropathy due to diabetes mellitus 672490702 E11.40 Uncontroll ed type 2 diabetes mellitus 783666859 E11.65 [id number] Sarika Rose RN, BSN, [facility] , [address] [address] 05/04/2019 08:44:36 05/05/2019 12:08:07 Uncontrolled type 2 diabetes mellitus 112213153 E11.65 Met with Wilberto today for follow [...] limiting cardiovasc ular risk. Other strategies for [facility] heart health. [id number] Gloria Leonard MD , [facility], OFFICE [address] [place] [address] 05/23/2019 10:04:58 05/23/2019 15:19:11 Active or passive immunization 252441438 Z23 Asymmetric al sensorineural hearing loss 803820692 H90.5 pt will call for appt- printed the referral from Dr Sweet earlier this year so he can callhe never followed updoes not feel sx have changed Impacted c erumen of bilateral ears 6303435381 329562 H61.23 irrigation todaycompl etely cleared after several attempts [id number] John Luna MD , [facility], OFFICE [address] [place] [address] 07/06/2019 08:16:55 07/06/2019 13:42:42 Acute upper respiratory infection 79996232 J06.9 Educated patient that URI is a [...] or failure to resolve in 2-4 weeks. [id number] Sarika Rose RN, BSN, [facility] , [address] [address] 07/12/2019 13:14:32 07/17/2019 11:36:40 Uncontrolled type 2 diabetes mellitus 105311480 E11.65 Met with Wilberto and his today [...] diabetes is progressiv e and medication s sales and service change leader time (which includes insulin). Monitoring : Appropriat e times to test blood sugar and target blood sugars. Physical Activity : Introducti on to its importance . Effects of regular physical activity on blood sugars. Chronic Complicati ons: Introducti on to long-term effects, Importance of ABCs (A1c, Blood pressure and Cholestero l control) in limiting cardiovasc ular risk. Other strategies for [facility]. Reviewed the benefits of insulin and how he will need a long acting insulin before we start him on meal time insulin. [id number] Sarika Rose RN, BSN, [facility] DM Education , [facility] [address] [place] [address] 08/23/2019 12:54:55 08/23/2019 15:28:53 Uncontrolled type 2 diabetes mellitus 174405155 E11.65 Met with Wilberto and his today for diabetes education, kindly referred by Dr. Sweet.-He has had diabetes for about 10 years now.-Just arrived last week from [place]. No fever, no cough. -Last A1C was [...] 2 days). 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 He is working 13 hours per [...] diabetes is progressiv e and medication s sales and service change leader time (which includes insulin). Monitoring : Appropriat e times to test blood sugar and target blood sugars.Chr onic Complicati ons: Introducti on to long-term effects, Importance of ABCs (A1c, Blood pressure and Cholestero l control) in limiting cardiovasc ular risk. Other [facility]. [id number] Montserrat Anand PA-C , [facility], OFFICE [address] [place] [address] 08/24/2019 10:34:06 08/24/2019 17:49:12 Rib pain 239633597 R07.81 s/p fall. Advised compressio n brace and ibuprofen. RTC for worsening pain. [id number] Sarika Rose RN, BSN, [facility] DM Education , [facility] [address] [place] [address] 10/19/2019 09:06:19 10/20/2019 09:04:53 Uncontrolled type 2 diabetes mellitus 352972689 E11.65 -Virtual Appt via [employer] due to COVID-19 pandemic.- Kindly referred [...] limiting cardiovasc ular risk. Other strategies for [facility]. Long acting insulin such as Lantus or Basaglar and the benefits for his blood sugars. [id number] Sarika Rose RN, BSN, [facility] DM Education , [facility] [address] [place] [address] 11/30/2019 10:15:19 12/01/2019 09:18:58 Uncontrolled type 2 diabetes mellitus [id number] E11.65 -Virtual Appt via phone due to [...] that the provider location is not at [facility] Patient location: home During the visit the patient? s medical history and medical record were reviewed. The patient was notified to call our office for worsening or urgent symptoms. [id number] Wallace Sweet MD , [facility], OFFICE [address] [place] [address] 03/22/2020 10:46:30 03/25/2020 09:35:39 Mixed hyperlipidemia 631861069 E78.2 Essential hypertension 68475084 I10 Uncontroll ed type 2 diabetes mellitus [id number] E11.65 [id number] ALAN Marcus, [facility], [address] [place] [address] 06/13/2020 10:08:22 06/17/2020 10:27:30 Muscle pain 70051741 M79.10 advised ample rest and hydration and gentle movement. RTC for worsening/ persisting sx. [id number] LAAN Marcus, [facility], [address] [place] [address] 06/25/2020 14:01:39 06/26/2020 13:07:05 COVID-19 [id number] U07.1 Right sided headache lingering. No red flags. Advised ample rest, hydration , OTC migrelief. F/U in 1 week or sooner for worsening sx. [id number] ALAN Marcus, [facility], [address] [place] [address] 07/02/2020 11:31:22 07/03/2020 14:29:04 SARS-CoV-2 208518353 U07.1 MEDINA has resolved. Asymptomat ic. Back at work. RTC for concerning sx. [id number] Sarika Rose RN, BSN, [facility] , [address] [address] 08/22/2020 09:04:35 08/22/2020 10:47:49 Uncontrolled type 2 diabetes mellitus [id number] E11.65 -Virtual Appt via phone due to COVID-19 pandemic. He could not hear the provider when we tried [employer]. -Kindly referred by Dr. Sweet for [...] 180 mg/dl. -He watched on Youtube that residential use of Metformin causes B12 deficiency , [...] doing it correctly when he started it. [id number] Wallace Sweet MD , [facility], [address] [place] [address] 12/30/2020 10:35:47 12/30/2020 11:37:27 Mixed hyperlipidemia 578198946 E78.2 Essential hypertension 40261213 I10 Neuropathy due to diabetes mellitus 202900005 E11.40 [id number] Sarika Rose RN, BSN, [facility] , [facility] [address] [place] [address] 01/28/2021 08:11:07 01/31/2021 15:37:06 Uncontrolled type 2 diabetes mellitus 372513471 E11.65 -Virtual Appt via [employer] due to COVID-19 pandemic. -Kindly referred by [...] his glucose more often. Concerned about his residential affects of diabetes, as he has been elevated with high A1C for many years. He likely needs short acting insulin with meals. Will discuss with Dr. Sweet about starting Humalog or Novolog. Did not get a chance to discuss this with Wilberto today and will discuss this at our next visit. [id number] Wallace Sweet MD , [facility], [address] [place] [address] 04/03/2021 08:49:27 04/03/2021 09:15:23 Essential hypertension 12101469 I10 Mixed hyperlipidemia 267 073527 E78.2 Uncontroll ed type 2 diabetes mellitus 505354868 E11.65 [id number] Sarika Rose, RN, BSN, [facility] , [facility] [address] [place] [address] 04/08/2021 09:03:28 04/10/2021 12:59:38 Uncontrolled type 2 diabetes mellitus 491588513 E11.65 -Virtual Appt via [employer] due to COVID-19 pandemic. -Kindly referred by [...] it. He bought a toe guard from [employer]. At one point, he had to get custom made, from [employer] (about 10 years ago). As soon as [...] down blood sugars. FU in 1 month. 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 refer to retina. 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 No DR OS. No CSME OU. Presbyopia 42884290 H52. 4 ok to cont with OTC readers. [id number] Sarika Rose, RN, BSN, [facility] , [facility] [address] [place] [address] 07/14/2021 09:09:17 07/15/2021 09:52:12 Uncontrolled type 2 diabetes mellitus 957176790 E11.65 -Virtual Appt via over the phone due to COVID-19 pandemic. Pt. tried connecting to [employer], however, it would not connect (he has [...] wax in the past. Tried to call [facility] to have it removed, however, was told that [facility] is no longer doing this. About 3 [...] in the past. Wants to see a special library librarian for it. There is a referral for a special library librarian from 04/03, encouraged he call to schedule an appt. -Asked about sensors, and discussed how he does not currently qualify for a sensor based on Medicare/[employer] edicaid strict guidelines with sensors. However, his [...] this month. Schedule an appt with the special library librarian . Call insurance to find out if [...] requiremen ts to go on a sensor. [id number] Wilberto Ivan DPM Podiatry, [facility] [address] [place] [address] 08/05/2021 10:29:51 08/05/2021 11:30:28 Disorder of nervous system due to type 2 diabetes mellitus 361937891 E11.49 Pronation of foot 422377 03 M21.6X9 [id number] Sarika Rose, RN, BSN, [facility] , [facility] [address] [place] [address] 09/16/2021 10:02:55 09/19/2021 11:05:31 Uncontrolled type 2 diabetes mellitus 255234176 E11.65 -Virtual Appt via over [employer] for diabetes education. -Kindly referred by Dr. [...] guard for his large calluses. Saw a special library librarian and was told it was due to [...] until fasting glucose are below 130 mg/dl. [id number] , [facility], [address] [place] [address] 12/01/2021 10:39:30 12/01/2021 11:12:28 Adult health examination 197389040 Z00.00 see Risk Assessment and Lifestyle Change Counseling section above Counseling 327351127 Z71 .9 including cardivascu lar risk reduction counseling Depression screening 171 214087 Z13.31 depression screening tool administer ed, entered into emr, scored and discussed, time greater than 7.5 minutes Screening for alcohol abuse 739348586 Z13.39 Essential hypertension 40366962 I10 Mixed hyperlipidemia 267 045225 E78.2 Active or passive immunization 547621148 Z23 Uncontroll ed type 2 diabetes mellitus 862756309 E11.65 Impacted c erumen of bilateral ears 5924856469 104580 H61.23 [id number] Sarika Rose, RN, BSN, [facility] , [facility] [address] [place] [address] 12/24/2021 09:05:34 01/05/2022 16:28:55 Uncontrolled type 2 diabetes mellitus 330377998 E11.65 -Virtual Appt via over [employer] today for diabetes education. -Kindly referred by [...] diarrhea. -Has blood sugars available to review today.-Dubois d them off over the phone:12/24 - [...] have some numbness and tingling, saw a special library librarian . He gets calluses on his big toe. He has flat feet and this causes the calluses. He puts a toe guard on them when walking.-Makayla jose exam was a year ago. He went to [facility] eye doctor. He was told that he [...] said that Dexcom is not covered at [facility], however, it is worth calling insurance to find out if it is covered with a DME and how much is the co-pay. The Freestyle Upshpa sensor is covered with [facility], however the co-pay is $100 per month. 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 Sent a message to Dr. Sweet about starting a small dose of Humalog or Novolog 5 units with each meal. Pt. does not currently have residential complicati ons. Reviewed how insulin puts him [...] and the preferred DME is [facility]. 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 mild NPDR OU, trace ME OS. new finding. PED resolved OS. refer to retina in 1-2 weeks. [id number] Sarika Rose RN, BSN, [facility] , [address] [address] 01/21/2022 09:03:01 01/21/2022 12:26:35 Uncontrolled type 2 diabetes mellitus 444507300 E11.65 -Virtual Appt via over [employer] for diabetes education. -Kindly referred by Dr. [...] connect his Freestyle Pushpa 2 sensor to [facility]'s Prezi account today. Download of sensor reveals:-A verage [...] prevent insulin from stacking. -Now on the [employer] Pushpa 2 sensor and had trouble with [...] he has eaten something. FU in February. [id number] Sarika Rose, RN, BSN, [facility] , [address] [address] 02/18/2022 09:43:48 02/18/2022 10:30:23 Uncontrolled type 2 diabetes mellitus 935505385 E11.65 -Virtual Appt via over the phone [...] burp and he had diarrhea. -Connected to [employer] and able to review his download today: [...] appt in person. FU in 1 month. [id number] Sarika Rose RN, BSN, [facility] , [facility] [address] [place] [address] 04/02/2022 10:05:34 04/02/2022 13:10:29 Uncontrolled type 2 diabetes mellitus 258062419 E11.65 -Virtual Appt via [employer] today. -Kindly referred by Dr. Sweet. -He [...] mg/dl.Carb ohydrate Ratio: 5 grams -Connected to [employer] and able to review his download today: [...] in 1 month to review sensor download. [id number] Mary Kate Weir MD , [facility], [address] [place] [address] 04/06/2022 10:40:31 04/06/2022 16:07:56 Tinnitus of left ear 8307062911 106 H93.12 Temporoman dibular joint disorder 39709267 M26.609 you can use both ibuprofen and [...] the area hurts more 2 hours after. [id number] , [facility], [address] [place] [address] 06/18/2022 13:48:25 06/18/2022 14:18:13 Uncontrolled type 2 diabetes mellitus 334072080 E11.65 stressed importance of controllin g sugars or wounds will not healat risk of losing toes if we arent aggressive check a1c today, will call pt with results and possible med adjustment Diabetic foot ulcer 9620 50188 E13.621 start abx, refer to wound caresee above [id number] Sheri Mata MD , [facility], [address] [place] [address] 07/22/2022 14:28:48 07/22/2022 15:55:20 Uncontrolled type 2 diabetes mellitus 502563045 E11.65 stressed importance of controllin g sugars or wounds will not healat risk of losing toes if we arent aggressive last a1c 10.7contin ue meds, pt aggressive ly managingre peat a1c september, see me afterdior grace message sent with info on nutrition consult name and number Diabetic foot ulcer 3710 76877 E13.621 slowly improvemen tcontinue with wound care [id number] Sheri Mata MD FP, [facility], [address] [place] [address] 08/10/2022 07:40:22 08/10/2022 08:42:21 Uncontrolled type 2 diabetes mellitus 541272658 E11.65 stressed importance of controllin g sugars [...] per month Neuropathy due to diabetes mellitus 166870365 E11.40 as above Diabetic foot ulcer 3710 08657 E13.621 slowly improvemen tcontinue with wound careMRI pending to rule out osteomyeli tis [id number] Sheri Mata MD FP, [facility], [address] [place] [address] 09/21/2022 14:38:30 09/21/2022 16:20:39 Essential hypertension 60867301 I10 well controlled on med Uncontroll ed type 2 diabetes mellitus 493163890 E11.65 a1c down to 7.9!contin ue diet, exercisewi ll back down lantus to avoid lows overnightc ontinue humalogrep eat labs, see me 3 monthsi will research berberine for safety Diabetic foot ulcer 3710 01797 E13.621 slowly improvemen tcontinue with wound care Health Concerns Section Related Observation LastModified by Organization Detai ls LastModified Time None Recorded Concern Status LastModified by Organization Details LastModified Time None Recorded Advance Directives Directive N: Payers Encounter Date Sequence Insurance Name Policy Number Policy Orozco Covered Member ID Orozco Member ID Guarantor Name 04/06/2022 1 [facility] [id number] Wilberto Diegoand [id number] Wilberto Aquino [facility] 06/18/2022 1 [facility] [id number] Wilberto Diegoand [id number] Wilberto Aquino Zoraida 07/22/2022 1 [facility]) [id number] Wilberto Aquino [facility] [id number] Wilberto Aquino [facility] 08/10/2022 1 [facility]) [id number] Wilberto Aquino [facility] [id number] Wilberto Aquino [facility] 09/21/2022 1 [facility]) [id number] Wilberto Aquino [facility] [id number] Wilberto Aquino [facility] Notes Date Note Type Note Provider Name and Address Organization Details Recorded Time 04/06/2022 text/html Pt reports L artur e ear and jaw pain ongoing about 2 wks, feels like he can hear constant humming in L ear, Denies drainage or swelling. Pain is worse when he opens his mouth. Mary Kate Weir MD [address] [place] [address], [phone], [facility] 04/06/2022 11:43:41 06/18/2022 text/html Foot issues. Big toe on both feet. Calluses. Blood blisters. presents to discuss feet. Has to wear steel toed shoes at work and now toes have painful blisters. Not checkin sugars. Taking meds as listed Sheri Mata MD [address] [place] [address], [phone], [facility] 06/18/2022 14:22:38 07/22/2022 text/html Patient presents to the office today for f/u on sore on foot. for followup foot ulcer and DM. Sugars mostly under 150. Taking meds as listed. WOrking hard on controlling.Seeing wound care, foot healing slowlyHasnt heard about nutrition consult Sheri Mata MD [address] [place] [address], [phone], [facility] 07/22/2022 14:59:41 08/10/2022 text/html Patient presents to [...] 3-4 times per day Sheri Mata MD [address] [place] [address], [phone], [facility] 08/10/2022 08:23:38 09/21/2022 text/html for followup DM. Working very hard. Taking 50 lantus HS and 30 humalog with meals. Has been having lows in middle of night.Seeing wound care for foot. Had a setback, Was casted and caused infection, on two abx nowread about berberine, herb used in [place] for DM, wonders if can tryhad colon last week, normal Sheri Mata MD [address] [place], [phone], [facility] 09/21/2022 15:30:10
[2024-09-12 11:17] LABS: Anion Gap 11 (12-20); Blood Urea Nitrogen 11 mg/dL (9-16); Calcium 9.6 mg/dL (8.4-10.2); Carbon Dioxide 30 mmol/L (22-29); Chloride 105 mmol/L (96-108); Estimated Glomerular Filt Rate > 60; Glucose Random 108 mg/dL (60-115); Potassium 4.2 mmol/L (3.3-5.1); Sodium 142 mmol/L (135-145)
== END 2024-09-12 09:35 | disposition home or self-care (01) ==
LOC: HO.HMGCLDS 09:34
PROVIDERS: PCP Internal Medicine; Visit Provider Internal Medicine
DX: E11.9 Type 2 diabetes mellitus without complications (principal); I25.10 Atherosclerotic heart disease of native coronary artery without angina pectoris
CPT/HCPCS: 36415; 80048; 85027; 85610

== ENCOUNTER 2024-09-13 10:06 | Outpatient (AMB) | payer OTHER, SELFPAY ==
--- NOTE | 2024-09-13 10:12 | A.OFFVIS_ITS ---
Vital Signs 09/13/24 10:16 Height 5 ft 10 in Weight 218 lb BMI 31.3 Intake Visit Reasons: OV Discuss surgery of LT trigger finger Intake Note: Wilberto is a 59 year old right hand dominant male who presents today for a follow up of his trigger finger, left index finger. At his last visit on 03/29/24 patient's last A1c was 8.2 and was unable to sign up for surgery. Today patient would like to re-discuss surgical treatment. Allergies semaglutide [From Ozempic] Adverse Reaction (Intermediate, Verified 09/13/24 10:15) burping HPI HPI OV Discuss surgery of LT trigger finger: Details: Wilberto is a 59 year old right hand dominant male who presents today for a follow up of his trigger finger, left index finger. At his last visit on 03/29/24 patient's last A1c was 8.2 and was unable to sign up for surgery. Today patient would like to re-discuss surgical treatment. Last A1c 7.2. [facility] Medical History Blood pressure elevated without history of HTN Diarrhea Asthma Surgical History Hx of tonsillectomy Aftercare following bilateral shoulder joint replacement surgery History of appendectomy Family History Mother Emphysema lung Father Heart failure Brother Substance use disorder Mental health disorder Brother No problems noted. Brother No problems noted. Sister No problems noted. Daughter No problems noted. Son No problems noted. Son No problems noted. Social History Housing: House Alcohol intake: current Alcohol intake frequency: a few times a week Alcohol type: beer Patient Tobacco Use Status: Never used Tobacco e-Cigarette/Vaping Use: Never Used Second Hand Smoke Exposure: No service: No Current occupational status: employed Cognitive needs: No Hearing needs: No Vision needs: Yes (Glasses) Review of Systems Const All systems reviewed & are unremarkable except as noted in HPI and below Physical Exam Vital Signs: BMI result Body Mass Index 31.3 Extrem Other: Patient is alert, oriented, and in no acute distress. Neuro: Normal sensation of the tips of all digits of the bilateral hands. Vascular: Cap refill brisk Pain: Patient reports tenderness to palpation over the A1 sangita of the left middle finger, index finger, as well as the right index and middle fingers No other tenderness to palpation noted ROM: Visible and palpable locking and catching of the left index, middle fingers Visible and palpable locking and catching of the right index, middle fingers Patient is able to make a closed fist and extend all other digits of bilateral hands fully and without difficulty Skin: Small deroofed blister noted on the right index finger, no evidence of drainage or infection General: No ecchymosis, erythema, or evidence of infection. Psych: Appears grossly normal Affect normal Attitude cooperative Assessment & Plan Assessment & Plan (1) Trigger finger, right middle finger: Code(s): M65.331 - Trigger finger, right middle finger Category: Medical (2) Trigger finger, right index finger: Code(s): M65.321 - Trigger finger, right index finger Category: Medical (3) Trigger finger, left index finger: Code(s): M65.322 - Trigger finger, left index finger Category: Medical (4) Trigger finger, left middle finger: Code(s): M65.332 - Trigger finger, left middle finger Category: Medical Plan 1. Trigger finger, left middle finger 2. Trigger finger, left index finger I educated the patient about the condition. I discussed both operative and nonoperative treatment options. The patient would like to proceed with surgery. The risks and benefits of operative treatment were discussed with the patient and the patient wishes to proceed with surgery. These risks include, but are not limited to, risk of damage to blood vessels, nerves, tendons, infection, recurrence, incomplete relief of preoperative symptoms, persistent pain, possible need for further surgery, and the risks associated with regional blocks and/or anesthesia. Plan is to take the patient to the operating room at some point in the next few weeks for the following procedures: 1. Left middle finger trigger release under local 2. Left index finger trigger release under local All of the preoperative paperwork including the consent was discussed today. All of the patient's questions were answered in the clinic today. The patient understands that they will be in contact with our ophthalmic surgical assistant to discuss scheduling their procedure. Patient reports diabetes, last A1c 7.2 Denies blood thinners, asthma, heart issues, lung issues, kidney issues, or current smoking. 3. Trigger finger, right middle finger 4. Trigger finger, right index finger Patient would like to proceed with operative intervention of the left prior to a ny intervention on the right Patient was advised that if he is recovering well in his postop appointment, he can get signed up for surgery on the right at that time Patient was amenable to this plan Coding Level of Care Code Est Pt Level 4 (57907) Diagnoses Trigger finger, right middle finger M65.331 Trigger finger, right index finger M65.321 Trigger finger, left index finger M65.322 Trigger finger, left middle finger M65.332
[2024-09-13 10:16] VITALS: BMI 31.3
--- OUTSIDE RECORDS SUMMARY | 2024-09-13 11:41 | XMS_ITS | Data Portability ---
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 Lab HbA1c (hemoglobin A1c), blood 2022 023 [facility], [address] [place], [address], 3 11:02:52 microalbumi n/creatinin e, ratio panel, urine 2022 023 [facility], [address] [place], [address], 3 12:27:09 Referral wound care referral - DM foot ulcers, both great toes 2022 023 [email or web address] Hammonds [facility], [address] [place] [address] [place], [address], 3 10:12:51 nutritionis t/dietitian referral 2022 023 [email or web address] Suze Whipple, [address] [place] [address] [place], [address], 3 10:49:02 otolaryngol ogist referral - tinnitus and TMJ same side; please eval and Rx as needed 2021 022 [email or web address] Dunia Burkett MD, [address] [place], [address], 2 11:14:12 Procedures None recorded. Surgeries None recorded. Imaging None recorded. Medication Orders cephalexin 500 mg tablet 2022 023 [facility], [address] [place] [address], [place], [address], 14:38:26 Patient TargetsNo targets recorded. Patient InstructionsNo instructions recorded. 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 METAB OLIC PANEL glucose 262 mg/dL 70-100 high Not Available [address], [address], 06/19/2022 11:00:07 06/18/19 23 06/19/2022 COMP. METAB OLIC PANEL BUN 13 mg/dL 7-18 Not Available [address], [address], 06/19/2022 11:00:07 06/18/19 23 06/19/2022 COMP. METAB OLIC PANEL creatinine 1.0 mg/dL 0.8-1. 3 Not Available [address], [address], 06/19/2022 11:00:07 06/18/19 23 06/19/2022 COMP. METAB OLIC PANEL B/C 13.0 ratio Not Available [address], [address], 06/19/2022 11:00:07 06/18/19 23 06/19/2022 COMP. METAB [...] be used in pregn valentina. Not Available [address], [address], 06/19/2022 11:00:07 06/18/19 23 06/19/2022 COMP. METAB OLIC PANEL sodium 140 mmol/ L 136-14 5 Not Available [address], [address], 06/19/2022 11:00:07 06/18/19 23 06/19/2022 COMP. METAB OLIC PANEL potassium 5.0 mmol/ L 3.5-5. 1 Not Available [address], [address], 06/19/2022 11:00:07 06/18/19 23 06/19/2022 COMP. METAB OLIC PANEL chloride 101 mmol/ L 96-107 Not Available [address], [address], 06/19/2022 11:00:07 06/18/19 23 06/19/2022 COMP. METAB OLIC PANEL anion gap 7.6 5.0-15 .0 Not Available [address], [address], 06/19/2022 11:00:07 06/18/19 23 06/19/2022 COMP. METAB OLIC PANEL CO2 31 mmol/ L 21-32 Not Available [address], [address], 06/19/2022 11:00:07 06/18/19 23 06/19/2022 COMP. METAB OLIC PANEL calcium 9.2 mg/dL 8.5-10 .3 Not Available [address], [address], 06/19/2022 11:00:07 06/18/19 23 06/19/2022 COMP. METAB OLIC PANEL total protein 7.2 g/dL 6.4-8. 2 Not Available [address], [address], 06/19/2022 11:00:07 06/18/19 23 06/19/2022 COMP. METAB OLIC PANEL albumin 4.2 g/dL 3.4-5. 0 Not Available [address], [address], 06/19/2022 11:00:07 06/18/19 23 06/19/2022 COMP. METAB OLIC PANEL globulin 3.0 g/dL Not Available [address], [address], 06/19/2022 11:00:07 06/18/19 23 06/19/2022 COMP. METAB OLIC PANEL A/G 1.4 ratio 0.8-2. 0 Not Available [address] [place], [address], 06/19/2022 11:00:07 06/18/19 23 06/19/2022 COMP. METAB OLIC PANEL total bilirubin 0.80 mg/dL 0.00-1 .00 Not Available [address], [address], 06/19/2022 11:00:07 06/18/19 23 06/19/2022 COMP. METAB OLIC PANEL AST 20 U/L 0-37 Not Available [address], [address], 06/19/2022 11:00:07 06/18/19 23 06/19/2022 COMP. METAB OLIC PANEL ALT 37 U/L 6-63 Not Available [address], [address], 06/19/2022 11:00:07 06/18/19 23 06/19/2022 COMP. METAB OLIC PANEL alk. phos. 117 U/L 50-136 Not Available [address], [address], 06/19/2022 11:00:07 06/18/19 23 06/19/2022 LIPID PANEL cholesterol 191 mg/dL <200 mg/dl Maty able 200-2 39 mg/dl Borde rline High >240 mg/dl High Not Available [address], [address], 06/19/2022 11:00:09 06/18/19 23 06/19/2022 LIPID PANEL triglyceride s 289 mg/dL high LIPS= Speci men Sligh tly Lipem ic. Chem Resul ts may be effec nicole. <150 mg/dL Karley l 150-1 99 mg/dL Borde rline High 200-4 99 mg/dL High >500 mg/dL Very High Not Available [address], [address], 06/19/2022 11:00:09 06/18/19 23 06/19/2022 LIPID PANEL direct HDL 54 mg/dL <40 mg/dl - Major Risk for CHD >60 mg/dl - Negat garry Risk for CHD Not Available [address], [address], 06/19/2022 11:00:09 06/18/19 23 06/19/2022 DIREC T [...] r is not neces audrey. Not Available [address], [address], 06/19/2022 11:00:11 06/18/19 23 06/19/2022 HGB A1C [...] furth er confi rmati on Not Available [address], [address], 06/19/2022 12:22:00 06/18/19 23 06/19/2022 HGB A1C estimated average glucose 260.4 mg/dL Not Available [address], [address], 06/19/2022 12:22:00 09/13/19 23 09/14/2022 HGB A1C [...] furth er confi rmati on Not Available [address], [address], 09/14/2022 11:02:52 09/13/19 23 09/14/2022 HGB A1C estimated average glucose 180.0 mg/dL Not Available [address], [address], 09/14/2022 11:02:52 09/13/19 23 09/14/2022 MICRO ALBUM IN/CR EATIN INE RATIO PANEL , URINE microalbumin 8.0 mg/L 1.3-20 .0 Not Available [address], [address], 09/14/2022 12:27:09 09/13/19 23 09/14/2022 MICRO ALBUM IN/CR EATIN INE RATIO PANEL , URINE creatinine urine 100.6 mg/dL 30.0-1 25.0 Not Available [address], [address], 09/14/2022 12:27:09 09/13/19 23 09/14/2022 MICRO ALBUM IN/CR EATIN INE RATIO PANEL , URINE microalb/cre at ratio 8.0 mg/g_ creat 0.0-29 .0 Not Available [address], [address], 09/14/2022 12:27:09 06/10/20 22 06/10/2022 US abdom [...] wnl IVC: appear s wnl WALLACE SWEET [facility] [address] [facility], [place], [address], 06/11/2022 07:07:36 10/14/19 23 09/17/2022 colon oscop y proce dure (PROC ) No observ ation record ed. BARCODE Not Available 2022 11:32:22 Result Notes None recorded. Problems Name Problem SNOMED Code Status Onset Date Resolution Date Notes Provider Name and Address Organization Details Recorded Time Essential hypertensi on 35822951 Active Not Available [facility] 3 21:02:46 Excessive cerumen in ear canal 414870082 Active Not Available [facility] 3 21:02:46 Anxiety 30324146 Active 2016 Not Available [facility] 3 21:02:46 Neuropathy due to diabetes mellitus 983954651 Active 2018 Not Available [facility] 3 21:02:46 Mixed hyperlipid emia 312562041 Active 2006 Not Available [facility] 3 21:02:46 Internal hemorrhoid s 68263961 Completed 200205/03/2013 Not Available [facility] 3 02:03:12 Effusion of joint of shoulder region 94997762 Completed 03/27/2014 Wallace Sweet MD [address] [place] [address], [address] , [facility] 4 05:26:27 Impotence of organic origin Active 2007 Not Available [facility] 3 21:02:46 Carpal tunnel syndrome 26074850 Active 2001 Not Available [facility] 3 21:02:46 Diabetes mellitus 02653862 Completed 200603/27/2014 Wallace Sweet MD [address] [place] [address], [address] , [facility] 4 05:26:27 Disorder of bursa of shoulder region 52139558 Completed 200705/03/2013 Not Available [facility] 3 02:04:09 Temporoman dibular joint disorder 94380856 Completed 200103/27/2014 Wallace Sweet MD [address] [place] [address], [address] , [facility] 4 05:26:43 Shoulder pain 27644243 Completed 200707/29/2008 Not Available [facility] 3 03:03:47 Shoulder pain 10587014 Completed 05/03/2013 Not Available [facility] 3 02:01:00 Benign essential hypertensi on 5921530 Completed 01/19/2012 Not Available [facility] 3 03:03:47 Impacted cerumen 94139431 Completed 200005/03/2013 Not Available [facility] 3 02:02:10 Pure hyperchole sterolemia 186868456 Completed 200203/27/2014 Wallace Sweet MD [address] [place] [address], [address] , [facility] 4 05:26:27 Medial epicondyli tis 78501608 Completed 200705/03/2013 Not Available [facility] 3 02:04:00 Obesity 278096075 Active 2006 Not Available [facility] 3 21:02:46 Abdominal pain 28683526 Completed 200205/03/2013 Not Available [facility] 3 02:01:20 On examinatio n - a rash Completed 05/03/2013 Not Available [facility] 3 02:00:46 Type 2 diabetes mellitus without complicati on 266571565 Completed 03/27/2014 Wallace Sweet MD [address] [place] [address], [address] , [facility] 4 05:26:43 Type 2 diabetes mellitus without complicati on 356495785 Completed 200601/05/2012 Not Available [facility] 3 03:03:47 Hearing loss 04441069 Active 2001 Not Available [facility] 3 21:02:46 Renal disorder due to type 2 diabetes mellitus 387588209 Active 2006 Not Available [facility] 3 21:02:46 Elevated blood-pres sure reading without diagnosis of hypertensi on 665633297 Completed 200103/27/2014 Wallace Sweet MD [address] [place] [address], [address] , [facility] 4 05:26:27 Sprain of knee and leg Completed 200205/03/2013 Not Available [facility] 3 02:03:04 Uncontroll ed type 2 diabetes mellitus 027953856 Active 2007 Not Available [facility] 3 21:02:46 Scrotal varices Active 2001 Not Available [facility] 3 21:02:46 Otogenic otalgia 76346570 Completed 200105/03/2013 Not Available [facility] 3 02:03:18 Notes:Some problems listed i n Document: #[id number] could not be added to this patient's chart. Please review this document and add these problems to the patient's chart manually as needed. Problem Notes None recorded. Procedures Surgical History Date Name Laterality Status Provider Name and Address Organization Details Recorded Time 01/09/20 22 Fundus Photography completed Erna Villalpando, OD [address] [place] [address], [address], [facility] 01/09/2022 13:35:41 04/25/20 21 Fundus Photography completed Erna Villalpando, OD [address] [place] [address], [address], [facility] 04/25/2021 09:33:54 04/25/20 21 Optical Coherence Tomography (Retina) completed Erna Villalpando, OD [address] [place] [address], [address], [facility] 04/25/2021 09:34:09 05/23/20 19 Cerumen Removal - Irrigation/Lavag e completed Anabelle Bragg [facility] 05/23/2019 11:33:23 10/06/19 19 Cerumen Removal - Irrigation/Lavag e completed Yvonne Edwards [facility] 10/05/2018 14:20:07 01/08/20 18 Cerumen Removal - Irrigation/Lavag e completed Akua Pizano LPN [facility] 01/07/2018 16:13:04 07/19/19 18 Cerumen Removal - Irrigation/Lavag e completed Mary Lott LPN [facility] 07/19/2017 11:26:34 11/25/19 17 Glucose Meter Teaching completed Akua Pizano LPN [facility] 11/24/2016 09:44:01 09/20/19 17 Cerumen Removal - Irrigation/Lavag e completed Karina Eseppi [facility] 09/19/2016 13:28:46 12/17/19 16 Cerumen Removal completed Michelle Mary LPN [facility] 12/17/2015 11:32:24 03/07/20 15 Cerumen Removal completed Viri Gomez RN [facility] 03/07/2015 17:46:53 06/06/20 14 Cerumen Removal completed Shannan VelasquezGilles CONNOLLY [facility] 06/06/2014 09:00:42 10/06/19 13 Cerumen Removal completed Michelle Mary LPN [facility] 10/05/2012 11:59:21 04/14/20 12 Other (specify) completed Domenic Collazo MD [address] [place] [address], [address], [facility] 04/04/2014 14:03:38 01/19/20 12 Cerumen Removal completed Cate Sims RN [facility] 01/19/2012 12:04:10 12/22/19 12 Treatment and Advice completed Ammy Chou OT [address] [place] [address], [address], [facility] 12/22/2011 13:00:06 08/11/19 11 Cerumen Removal completed Zo [facility] 08/11/2010 16:18:17 10/15/19 10 Cerumen Removal completed Zo Johnston LPN [place] Irvin Cardenas y [facility] 10/14/2009 11:03:38 08/08/19 10 Aspiration Major Joint/Bursa completed Wallace Sweet MD [address] [place] [address], [address], [facility] 08/08/2009 12:04:47 06/14/19 10 Other (specify) completed Domenic Collazo MD [address] [place] [address], [address], [facility] 04/04/2014 14:03:38 12/20/19 09 Cerumen Removal completed Marge Richey NP [address] [place] [address], [address], [facility] 12/19/2008 09:54:31 06/14/18 84 Appendectomy completed Domenic Collazo MD [address] [place], [address], [facility] 04/04/2014 14:03:38 06/14/18 71 Other (specify) completed Domenic Collazo MD [address] [place], [address], [facility] 04/04/2014 14:03:38 Imaging Results Imaging Date Name Status LastModified by Organiz ation Details LastModified Time 06/10/2022 US abdomen limited right upper quadrant completed [facility] [address] [place], [address], 06/11/2022 07:07:36 09/17/2022 colonoscopy procedure (PROC) completed BAR[facility] Information not available 10/13/2022 11:32:22 Procedure Notes None recorded. Medical Equipment None Reported. Allergies Allergen ID Allergen Name Allergen Category Reaction Reaction Severity Criticality Documentation Date Start Date Code Code System Note Provider Name and Address Organization Details Recorded Time Trulicity medicatio n abdominal pain moderate Not available 03/22/2020 24877 96 RxNorm Jumana Johnson MA [facility], [facility] 11:01:03 Medications Name Sig Start Date Stop [...] cm 84 /min 98.1 [degF] 31.1 kg/m2 04480.7 5 g 136 mm[Hg] 74 mm[Hg] Socorro Mckeon [facility] 2 11:09:57 Date Recorded Body height Body mass index (BMI) Body weight Body temperature Heart rate Oxygen saturation Oxygen saturation in Arterial blood by Pulse oximetry Systolic blood pressure Diastolic blood pressure Provider Name and Address Organization Details Last Updated DateTime 3 177.8 cm 31.7 kg/m2 610722. 91 g 98.1 [degF] 90 /min 97 % 97 % 140 mm[Hg] 66 mm[Hg] VICKI Funes [facility] 3 14:03:45 Date Recorded Body height Heart rate Oxygen saturation Oxygen saturation in Arterial blood by Pulse oximetry Systolic blood pressure Diastolic blood pressure Provider Name and Address Organization Details Last Updated DateTime 3 177.8 cm 80 /min 97 % 97 % 128 mm[Hg] 60 mm[Hg] Gloria Crockett MA [facility] 3 14:42:18 Date Recorded Body height Heart rate Oxygen saturation Oxygen saturation in Arterial blood by Pulse oximetry Systolic blood pressure Diastolic blood pressure Provider Name and Address Organization Details Last Updated DateTime 3 177.8 cm 82 /min 96 % 96 % 112 mm[Hg] 60 mm[Hg] Gloria Crockett MA [facility] 3 08:07:48 Date Recorded Body weight Body temperature Heart rate Respiratory rate Oxygen saturation Oxygen saturation in Arterial blood by Pulse oximetry Systolic blood pressure Diastolic blood pressure Provider Name and Address Organization Details Last Updated DateTime 3 50867.4 7 g 97.2 [degF] 88 /min 16 /min 96 % 96 % 144 mm[Hg] 69 mm[Hg] Gloria Crockett MA [facility] 3 15:25:48 Date Recorded Body height Body mass index (BMI) Body weight Systolic blood pressure Diastolic blood pressure Provider Name and Address Organization Details Last Updated DateTime 09/21/2022 177.8 cm 32.7 kg/m2 760079.0 6 g 128 mm[Hg] 64 mm[Hg] Gloria Crockett MA [facility] 3 15:11:54 Social History Question Answer Notes LastModified by Organizat ion Details LastModified Time Tobacco Smoking Status Never Smoker Not Available [facility] 2011 04:53:49 Do You Have An Advance Directive? No [email or web address] Information not available 2011 What Is Your Level Of Alcohol Consumption? 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 09/21/2022 [email or web address] Information not available 09/21/2022 How Many Children [...] Other Forms Of Tobacco Or Nicotine? No [email or web address] Information not available 07/22/2022 Sex: Unknown Functional [...] Td(adult) unspecified formulation 7 completed Not Available [facility] 10/01/2022 21:02:47 influenza, unspecified formulation 7 completed Not Available [facility] 10/01/2022 21:02:47 pneumococcal polysaccharide PPV23 7 completed Not Available [facility] 10/01/2022 21:02:47 influenza, unspecified formulation 7 completed Not Available [facility] 10/01/2022 21:02:47 influenza, unspecified formulation 8 completed Not Available [facility] 10/01/2022 21:02:47 Influenza, split virus, quadrivalent, PF 3 completed Not Available [facility] 07/01/2019 02:26:42 Influenza, split virus, trivalent, preservative 4 completed Not Available [facility] 10/01/2022 21:02:47 Influenza, split virus, quadrivalent, PF 9 completed Not Available [facility] 07/01/2019 02:38:00 Tdap 2 completed Wallace Sweet MD [address] [place] [address], [address], [facility] 12/02/2021 13:46:50 COVID-19, mRNA, LNP-S, PF, 30 mcg/0.3 mL dose 1 completed Not Available [facility] 10/01/2022 21:02:47 COVID-19, mRNA, LNP-S, PF, 30 mcg/0.3 mL dose 1 completed Not Available [facility] 10/01/2022 21:02:47 Past Encounters Encounter ID Performer Location Encounter Start Date Encounter Closed Date Diagnosis/Indication Diagnosis SNOMED-CT Code Diagnosis ICD10 Code Diagnosis Note [id number] [facility], OFFICE [address] [place] [address] 10/27/2000 10:45:00 07/04/2008 02:02:29 [id number] [facility], OFFICE [address] [place] [address] 11/25/2001 10:38:36 07/04/2008 02:02:29 [id number] [facility], OFFICE [address] [place] [address] 11/22/2001 12:58:05 07/04/2008 02:02:29 [id number] [facility], OFFICE [address] [place] [address] 02/17/2002 10:16:06 07/04/2008 02:02:29 [id number] [facility], OFFICE [address] [place] [address] 04/11/2002 10:38:32 07/04/2008 02:02:29 [id number] [facility], OFFICE [address] [place] [address] 05/18/2002 08:54:31 07/04/2008 02:02:29 [id number] [facility] [address] [place] [address] 06/23/2002 08:25:25 07/04/2008 02:02:29 [id number] [facility], OFFICE [address] [place] [address] 10/27/2002 10:38:56 07/04/2008 02:02:29 [id number] [facility], OFFICE [address] [facility] [place] [address] 12/04/2002 14:46:36 07/04/2008 02:02:29 [id number] LAB - [facility] [address] [place] [address] 12/04/2002 00:00:00 07/04/2008 02:02:29 [id number] FP [facility], OFFICE [address] [facility] [place] [address] 12/19/2002 16:00:41 07/04/2008 02:02:29 [id number] FP, [facility], OFFICE [address] [facility] [place] [address] 05/21/2003 13:45:19 05/21/2003 17:33:03 [id number] FP [facility], OFFICE [address] [facility] [place] [address] 11/01/2003 16:14:38 11/02/2003 10:55:10 [id number] [facility], OFFICE [address] [facility] [place] [address] 06/09/2004 09:12:28 06/09/2004 14:35:16 [id number] FP, [facility], OFFICE [address] [facility] [place] [address] 07/17/2005 09:52:58 07/17/2005 15:36:35 [id number] FP [facility], OFFICE [address] [facility] [place] [address] 07/05/2006 10:47:49 07/05/2006 15:09:32 [id number] LAB - [facility] 70 [facility] [place] [address] 07/06/2006 07:27:25 07/06/2006 07:27:29 [id number] FP [facility], OFFICE [address] [facility] [place] [address] 07/09/2006 13:58:02 07/09/2006 15:28:32 [id number] LAB - [facility] 70 [facility] [place] [address] 07/09/2006 14:56:53 07/09/2006 14:57:19 [id number] FP, [facility], OFFICE [address] [facility] [place] [address] 07/16/2006 00:00:00 07/04/2008 02:02:29 [id number] [facility], OFFICE [address] [facility] [place] [address] 07/23/2006 07:25:57 07/23/2006 11:32:05 [id number] [facility], OFFICE [address] [place] PATEL[address] 07/26/2006 13:43:23 07/26/2006 16:17:18 [id number] LAB - [facility] [address] [place] Anand[address] 08/09/2006 07:13:41 08/09/2006 07:13:45 [id number] [facility], OFFICE [address] [place] 6 08/27/2006 08:04:39 08/27/2006 11:15:54 [id number] [facility], OFFICE [address] [place] PAT[place] 6 08/24/2006 08:24:16 09/13/2006 14:24:02 [id number] [facility], OFFICE [address] [place] [address] 12/21/2006 14:50:21 12/23/2006 08:29:08 [id number] LAB - [facility] [place] [address] 12/24/2006 07:43:32 12/24/2006 07:43:36 [id number] LAB - [facility] [place] [address] 03/16/2007 07:12:11 03/16/2007 07:12:16 [id number] [facility], OFFICE [address] [place] [address] 03/22/2007 15:01:47 07/04/2008 02:02:29 [id number] [facility], OFFICE [address] [place] [address] 05/23/2007 09:05:39 07/04/2008 02:02:29 [id number] LAB - [facility] [address] [place] [address] 05/27/2007 07:46:56 05/27/2007 07:47:00 [id number] [facility], OFFICE [address] [place] [address] 07/22/2007 10:48:34 07/04/2008 02:02:29 [id number] [facility], OFFICE [address] [place] [address] 12/22/2007 14:13:35 07/04/2008 02:02:29 [id number] LAB - [facility] [address] [place] [address] 12/21/2007 07:18:47 12/21/2007 07:18:53 [id number] Physical Therapy, [facility] [address] [place] Anand[address] 12/28/2007 16:24:57 12/29/2007 09:55:50 [id number] [facility], OFFICE [address] [facility] ANN HERNANDEZ[address] 6 01/16/2008 13:54:48 07/04/2008 02:02:29 [id number] Physical Therapy, [facility] [address] [place] [address] 01/11/2008 16:24:51 01/24/2008 14:08:00 [id number] [facility], OFFICE [address] [facility] ANN HERNANDEZ[address] 6 02/22/2008 08:46:10 07/04/2008 02:02:29 [id number] [facility], OFFICE [address] [facility] [place] [address] 02/27/2008 10:14:54 07/04/2008 02:02:29 [id number] LAB - [facility] [address] [place] [address] 04/19/2008 07:02:00 04/19/2008 07:02:05 [id number] [facility] [address] [facility] [facility] [place] [address] 05/03/2008 09:17:10 07/04/2008 02:02:29 [id number] [facility], OFFICE [address] [facility] [place] [address] 05/08/2008 10:28:13 07/04/2008 02:02:29 [id number] [facility], OFFICE 70 [facility] [place] [address] 05/17/2008 10:44:38 07/04/2008 02:02:29 [id number] [facility], OFFICE 70 [facility] [place] [address] 07/26/2008 10:36:24 07/30/2008 11:01:51 [id number] [facility], OFFICE 70 [facility] [place] [address] 11/07/2008 10:33:14 11/12/2008 14:37:51 [id number] Radiology , [facility] 70 [facility] [place] [address] 11/07/2008 11:51:45 11/09/2008 11:42:29 [id number] , [facility], OFFICE 70 [facility] [place]DEZ[address] 6 12/19/2008 09:10:58 12/19/2008 14:12:15 [id number] , [facility], OFFICE 70 [facility] [place] [address] 02/20/2009 16:27:04 02/21/2009 14:15:54 [id number] LAB - [facility] 70 [facility] [place] 6 10/29/2008 07:04:44 10/29/2008 07:04:54 [id number] Eye Care, [facility] 70 [facility] [place] 6 12/04/2008 08:35:01 12/04/2008 14:08:24 [id number] LAB - [facility] 70 [facility] [place] [address] 02/05/2009 08:52:32 02/05/2009 08:52:40 [id number] [facility], OFFICE 70 [facility] [place] [address] 08/08/2009 10:49:48 08/09/2009 11:28:19 [id number] [facility], OFFICE [address] [place] [address] 09/17/2009 10:57:01 09/19/2009 12:48:32 [id number] [facility], OFFICE 70 [place] [address] 10/01/2009 09:16:37 10/01/2009 14:51:25 [id number] , [facility], OFFICE 70 [facility] [place] [address] 10/14/2009 10:06:27 10/14/2009 12:00:02 [id number] , [facility], OFFICE [address] [place] [address] 01/16/2010 07:41:39 01/16/2010 12:37:13 [id number] , [facility], OFFICE 70 [facility] [place] [address] 08/11/2010 14:49:16 08/14/2010 13:29:10 [id number] [facility], OFFICE 70 [facility] [place] [address] 6 09/04/2010 11:12:12 09/09/2010 08:33:12 [id number] [facility], OFFICE [address] [place] [address] 01/14/2011 10:09:19 01/14/2011 11:23:50 [id number] [facility], OFFICE [address] [place] [address] 04/10/2011 11:50:57 04/13/2011 13:24:56 [id number] [facility], OFFICE [address] [place] [address] 12/22/2011 07:59:48 12/22/2011 14:26:16 [id number] Radiology , [facility] 70 [facility] [place] [address] 6 12/22/2011 08:46:23 12/23/2011 11:15:39 [id number] Physical Therapy, [address] [address] 12/22/2011 12:29:23 12/23/2011 07:34:56 [id number] [facility], OFFICE [address] [place] [address] 01/05/2012 08:28:16 01/05/2012 09:29:20 [id number] Physical Therapy, [facility] [address] [place] [address] 01/05/2012 12:21:57 01/05/2012 13:09:59 [id number] Physical Therapy, [address] [address] 01/14/2012 14:16:39 01/15/2012 07:40:59 [id number] Domenic Collazo MD [facility], OFFICE [address] [place] [address] 6 01/19/2012 07:32:37 01/19/2012 09:15:36 [id number] Nutrition -[facility] 70 [facility] [place] [address] 6 02/10/2012 08:18:57 02/10/2012 09:08:04 [id number] Domenic Collazo MD , [facility], OFFICE [address] [place] [address] 07/28/2012 08:56:22 07/28/2012 09:46:12 [id number] Makayla Solares [facility], OFFICE [address] [place] [address] 6 10/05/2012 11:05:15 10/05/2012 15:55:29 [id number] Wallace Sweet MD , [facility], OFFICE [address] [place] [address] 06/13/2013 08:52:36 06/13/2013 09:57:34 Influenza vaccine needed [id number] 106 Mixed hyperlipidemia 802070951 continue to work on diet and exercise as discussed Uncontroll ed type 2 diabetes mellitus 628382207 Benign ess ential hypertension 7201150 continue to work on diet ,exercisea nd lowering salt intake as discussed [id number] HAFSA Law , [facility], OFFICE [address] [place] [address] 08/04/2013 15:13:51 08/07/2013 13:22:35 Impacted cerumen 99486750 irrigated in clinic no complicati ons. [id number] Gloria Murphy , [facility], OFFICE [address] [place] [address] 03/26/2014 16:14:43 03/26/2014 16:49:19 Benign essential hypertension 6377378 Mixed hyperlipidemia 615805090 Uncontroll ed type 2 diabetes mellitus 962182016 Renal diso rder due to type 2 diabetes mellitus 361928056 Benign par oxysmal positional vertigo [id number] [id number] Gloria Murphy [facility]ocr[facility], [address] [address] 04/04/2014 13:14:50 04/04/2014 15:08:28 Uncontrolled type 2 diabetes mellitus 682877439 -continue metformin 1g 2x/d -stop glyburide, change to glipizide 10mg 2x/d -start victoza 0.6 mg once daily for 1 week; then increase to 1.2 mg once daily Obesity 686953323 Essential hypertension 06090743 -lisinopri l Mixed hyperlipidemia 322122111 -lovastati n [id number] Taisha Johnston Physical Therapy, [address] [place] [address] 04/16/2014 16:18:50 04/17/2014 08:27:41 Benign paroxysmal positional vertigo 724478507 [id number] Taisha Johnston [facility] Therapy, [address] [place] [address] 2014 12:01:49 2014 13:34:38 Benign paroxysmal positional vertigo 986195837 [id number] [facility] [address] [place] [address] 05/04/2014 13:01:46 05/04/2014 14:08:08 Uncontrolled type 2 diabetes mellitus 069804766 -continue metformin 1g 2x/d -continue glipizide 10mg 1 x/d, may decrease to 1/2 tab daily if less than 100mg/dL after taking this medicine and then stop if still less than 100mg/dL -continue victoza 1.2 mg subcut once daily, may then decrease and stop if regularly less than 100mg/dL Obesity 439925012 Essential hypertension 38020811 -lisinopri l Mixed hyperlipidemia 601677633 -lovastati n [id number] [facility], OFFICE [address] [place] [address] 06/06/2014 08:18:24 06/08/2014 08:28:39 Excessive cerumen in ear canal 694796439 recurrence [id number] Johanne Maribel , [facility], OFFICE [address] [place] [address] 08/13/2014 16:22:39 08/13/2014 17:04:10 Benign essential hypertension 4477865 Mixed hyperlipidemia 007337061 Type 2 sailaja betes mellitus without complication 405611076 [id number] JUANIS Farfan [facility], OFFICE [address] [place] [address] 11/14/2014 16:22:50 11/14/2014 16:48:58 Pain in right lower limb 464515568 upper leg, post fall on ice 2-3 months, not fulle recovered, will refer to PT for further evaluation , advised to use ice alternatin g w/heat x 20 m. X 3-4 x/day, Ibuprofen 200 mg 3 tabs TID for the next 7-10d, take w/food, F/U PRN, may need further evaluation w/Orthoped ist, agrees w/plan. [id number] Jumana Johnson MA , [facility], OFFICE [address] [place] [address] 12/10/2014 16:14:55 12/10/2014 16:41:53 Mixed hyperlipidemia 426194355 Benign ess ential hypertension 2124004 Type 2 sailaja betes mellitus without complication 498299668 Obesity 527374533 [id number] Mary Kate Weir MD , [facility], OFFICE [address] [place] [address] 03/07/2015 16:40:20 03/08/2015 11:19:32 Lifestyle 903591132 Impacted cerumen 21167491 bilateral impacted cerumen, rinsed out with resolution . [id number] Wallace Sweet MD , [facility], OFFICE [address] [place] [address] 07/08/2015 08:36:19 07/08/2015 09:15:01 Mixed hyperlipidemia 485332709 E78.2 Benign ess ential hypertension 2304492 I10 Uncontroll ed type 2 diabetes mellitus 878437394 E11.65 Acute situ ational disturbance 618716620 F43.20 Chest pain 49664056 R07. 9 [id number] Wallace Sweet MD , [facility], OFFICE [address] [place] [address] 10/07/2015 16:18:20 10/07/2015 16:49:45 Benign essential hypertension 3177396 I10 . Mixed hyperlipidemia 267 619471 E78.2 continue to work on diet and exercise as discussed Uncontroll ed type 2 diabetes mellitus 700560743 E11.65 Obesity 453853649 E66.9 Impotence 963587564 N52. 9 [id number] Sarika Rose RN, BSN, [facility] , [address] [address] 10/16/2015 15:17:49 10/16/2015 16:45:28 Uncontrolled type 2 diabetes mellitus 179404297 E11.65 [id number] Kaye Zhao, JUANIS-AIDA , [facility], OFFICE [address] [place] [address] 12/17/2015 10:18:10 12/18/2015 10:57:34 Impacted cerumen 86768447 H61.23 irrigated without issue in clinic. [id number] Wallace Sweet MD , [facility], OFFICE [address] [place] [address] 01/06/2016 15:21:50 01/06/2016 16:18:35 Benign essential hypertension 6110472 I10 Blood pressure at goal Mixed hyperlipidemia 267 923284 E78.2 continue to work on diet and exercise as discussed Uncontroll ed type 2 diabetes mellitus 660864884 E11.65 [id number] Sarika Rose RN, BSN, [facility] DM Education , [facility] 238 [facility] [place] [address] 01/15/2016 15:14:26 01/21/2016 12:10:03 Uncontrolled type 2 diabetes mellitus 196160545 E11.65 Met with Wilberto today for diabetes [...] of regular physical activity on blood sugars. [id number] Sarika Rose RN, BSN, [facility] DM Education , [facility] [address] [place] [address] 03/11/2016 14:57:26 03/11/2016 16:55:46 Uncontrolled type 2 diabetes mellitus 156432008 E11.65 Met with Wilberto today for follow [...] limiting cardiovasc ular risk. Other strategies for [facility]. [id number] Wallace Sweet MD , [facility], OFFICE [address] [place] [address] 04/28/2016 08:47:08 04/28/2016 10:07:36 Adult health examination 273827081 Z00.00 see Risk Assessment and Lifestyle Change Counseling section above Counseling 163082210 Z71 .9 Mixed hyperlipidemia 267 004995 E78.2 continue to work on diet and exercise as discussed Uncontroll ed type 2 diabetes mellitus 011402882 E11.65 Impotence of organic origin 309405383 N52.9 Family his tory of malignant neoplasm of thyroid 481223915 Z80.8 [id number] Erna Villalpando, OD Eye Care, [facility] [address] [place] [address] 06/03/2016 14:09:37 06/03/2016 16:01:10 Type 2 diabetes mellitus without complication 391608659 E11.9 uncontroll ed, no diabetic retinopath y OU, pt ed, encouraged good BS control to maintain good eye health and vision. RTC 1 yr CEE or sooner with vision changes. [id number] Wallace Sweet MD , [facility], OFFICE [address] [place] [address] 08/04/2016 08:48:09 08/04/2016 09:18:49 Benign essential hypertension 7333554 I10 Mixed hyperlipidemia 267 000281 E78.2 Uncontroll ed type 2 diabetes mellitus 043251973 E11.65 Disorder o f nervous system due to type 2 diabetes mellitus 373015046 E11.40 Overweight 337620104 E66 .3 [id number] Sarika Rose RN, BSN, [facility] DM Education , [facility] [address] [place] [address] 09/01/2016 15:35:52 09/02/2016 09:08:30 Uncontrolled type 2 diabetes mellitus 752899506 E11.65 Met with Wilberto today for follow up of his diabetes education, kindly referred by Dr. Sweet. Wilberto has had diabetes for about 10 years now. Most recently, his A1C was 10.2% in [facility]. We reviewed how he has [...] limiting cardiovasc ular risk. Other strategies for [facility]. [id number] John Luna MD FP, [facility], OFFICE [address] [place] [address] 09/19/2016 13:00:28 09/19/2016 15:23:49 Impacted cerumen 38417112 H61.23 Otalgia 52360134 H92.03 likley due to cerumen [id number] Mani Padron MD FP, [facility], OFFICE [address] [place] [address] 11/23/2016 11:29:28 11/24/2016 13:05:04 Acute bronchitis 73126190 J20.9 OOW for 2 days , tessalon perles, rest, liquids [id number] Wallace Sweet MD , [facility], OFFICE [address] [place] [address] 11/24/2016 08:39:51 11/24/2016 09:46:06 Benign essential hypertension 3792842 I10 Mixed hyperlipidemia 267 317730 E78.2 Uncontroll ed type 2 diabetes mellitus 727976086 E11.65 [id number] Sarika Rose RN, BSN, [facility] DM Education , [facility] [address] [place] [address] 01/05/2017 14:22:22 01/11/2017 14:06:39 Uncontrolled type 2 diabetes mellitus 517608314 E11.65 Met with Wilberto today for follow [...] more. He reports he is flying to [place] in 2 weeks and is nervous about [...] once we decide what to prescribe him. [id number] Wallace Sweet MD , [facility], OFFICE [address] [place] [address] 03/08/2017 16:58:56 03/08/2017 17:43:47 Benign essential hypertension 6788704 I10 Mixed hyperlipidemia 267 652665 E78.2 Uncontroll ed type 2 diabetes mellitus 959937619 E11.65 [id number] Sarika Rose RN, BSN, [facility] DM Education , [facility] [address] [place] [address] 03/16/2017 15:32:36 03/18/2017 08:48:45 Uncontrolled type 2 diabetes mellitus 748741697 E11.65 Met with Wilberto today for follow [...] testing often. He reports his trip to [place] went well during the summer when he was nervous he would eat too much food while he was away. He was at a wedding. He reports he tends to gain 15 lbs when he is in [place] and this was the first trip he did not gain any weight because he continued to be careful while he was away. He continues to takeMetfor min 1,000 mg BID, Glipizide 10 mg BID and Victoza 1.8 mg QD. He was encouraged to [facility] and start testing again. He was [...] of regular physical activity on blood sugars. [id number] Wallace Sweet MD , [facility], OFFICE [address] [place] [address] 07/13/2017 14:38:02 07/14/2017 08:06:17 Benign essential hypertension 3086078 I10 Mixed hyperlipidemia 267 745730 E78.2 Uncontroll ed type 2 diabetes mellitus 115405254 E11.65 [id number] JUANIS Farfan , [facility], OFFICE [address] [place] [address] 07/19/2017 09:59:16 07/19/2017 11:23:32 Screening for malignant neoplasm of colon 626596125 Z12.11 Referral for a DIRECT booked colonoscop y. This patient is a healthy ASA Class 1 or 2 patient (only mild systemic disease), or a STABLE, well controlled insulin dependent diabetic. They do not have serious cardiac disease ie MN/angiopl asty within 1 year, symptomati c CHF; renal failure with CKD 4 or 5; take Coumadin, Plavix, Aggrenox, etc. Acholic stool 74562048 R 19.5 Abnormal colored elif, labs & US ordered as written below, further treatment pending results. Impacted cerumen 5102179 6 H61.23 Both ears successful ly cleared of cerumen. Advised to use Debrox gtts. to keep ears patent. [id number] Lauren Khan NP , [facility], OFFICE [address] [place] [address] 09/27/2017 11:53:22 09/28/2017 09:35:28 Acute bronchitis 06676540 J20.9 Reassured. Lungs completely clear. Enc force fluids, steam inhalation prn, adequate rest. OK to continue otc cold/cough meds prn for symptom management . F/u here if not gradually improving, symptoms worsening, especially if develops fevers or increased SOB. Codeine cough syrup prn primarily for night time use. Warned can cause drowsiness . [id number] Tata Silva PA-C , [facility], OFFICE [address] [place] [address] 10/01/2017 14:36:18 10/01/2017 16:03:25 Acute low back pain 153663125 M54.5 09/25 came out with cold/bronc hitis [...] alternate hot/cold packs. follow up 4-5 days. [id number] John Luna MD , [facility], OFFICE [address] [place] [address] 11/13/2017 09:44:36 11/13/2017 11:25:52 Dysfunction of eustachian tube 01616257 H69.91 supportive care f/u if not improved in 2-3 weks [id number] Lauren Khan NP , [facility], OFFICE [address] [place] [address] 01/07/2018 14:46:25 01/10/2018 08:54:41 Hearing loss 34277714 H91.91 Impacted cerumen 3923398 6 H61.23 Nurse in as above. TM's [...] phone next week. Consider ENT/audiol ogy referral. [id number] Wallace Sweet MD , [facility], OFFICE [address] [place] [address] 04/19/2018 13:34:53 04/19/2018 14:18:10 Benign essential hypertension 1501937 I10 Mixed hyperlipidemia 267 912766 E78.2 Uncontroll ed type 2 diabetes mellitus 082006257 E11.65 Hearing loss 01614438 H9 1.91 Anxiety 70700700 F41.9 [id number] Sarika Rose, RN, BSN, [facility] DM Education , [facility] [address] [place] [address] 06/27/2018 08:42:53 07/04/2018 09:48:45 Uncontrolled type 2 diabetes mellitus 676801886 E11.65 Met with Wilberto clark for follow [...] of regular physical activity on blood sugars. [id number] Sarika Rose RN, BSN, [facility] DM Education , [facility] [address] [place] [address] 08/02/2018 07:50:46 08/02/2018 11:32:49 Uncontrolled type 2 diabetes mellitus 473239117 E11.65 Met with Wilberto clark for follow [...] Other strategies for maintainin g heart health. [id number] Erna Villalpando, [facility], [facility] [address] [place] [address] 08/02/2018 09:03:25 08/02/2018 15:56:51 Type 2 diabetes mellitus without complication 926743715 E11.9 uncontroll ed, no diabetic retinopath y OU, pt ed, encouraged good BS control to maintain good eye health and vision. RTC 1 yr CEE or sooner with vision changes. [id number] POORNIMA Willis , [facility], OFFICE [address] [place] [address] 10/05/2018 13:03:14 10/06/2018 08:27:14 Uncontrolled type 2 diabetes mellitus 168446908 E11.65 Pt to do labs, f/u w/ PCP in the next month Active or passive immunization 575980604 Z23 Pt declined TD for today despite knowing the risk of disease and Mixed hyperlipidemia 267 677325 E78.2 Pt to have labs done and schedule w/ PCP within the next month- discussed goal is LDL < 100 Impacted cerumen 4945216 6 H61.23 Bilateral impacted cerumen- ear lavage done Essential hypertension 70728621 I10 Pt to have labs done and schedule w/ PCP within the next month Neuropathy due to diabetes mellitus 247715788 E11.40 pt states- chronic- reviewed improved control of BS's will decrease symptoms. [id number] Wallace Sweet MD FP, [facility], OFFICE [address] [place] [address] 03/30/2019 08:30:29 03/30/2019 09:12:31 Mixed hyperlipidemia 697800916 E78.2 Active or passive immunization 037168685 Z23 Benign ess ential hypertension 1247106 I10 Neuropathy due to diabetes mellitus 092334377 E11.40 Uncontroll ed type 2 diabetes mellitus 508616631 E11.65 [id number] Sarika Rose RN, BSN, [facility] , [address] [address] 05/04/2019 08:44:36 05/05/2019 12:08:07 Uncontrolled type 2 diabetes mellitus 969272492 E11.65 Met with Wilberto today for follow [...] limiting cardiovasc ular risk. Other strategies for [facility]. [id number] Gloria Leonard MD , [facility], OFFICE [address] [place] [address] 05/23/2019 10:04:58 05/23/2019 15:19:11 Active or passive immunization 565864067 Z23 Asymmetric al sensorineural hearing loss 764784856 H90.5 pt will call for appt- printed the referral from Dr Sweet earlier this year so he can callhe never followed updoes not feel sx have changed Impacted c erumen of bilateral ears 7936278329 518367 H61.23 irrigation todaycompl etely cleared after several attempts [id number] John Luna MD , [facility], OFFICE [address] [place] [address] 07/06/2019 08:16:55 07/06/2019 13:42:42 Acute upper respiratory infection 02388113 J06.9 Educated patient that URI is a [...] or failure to resolve in 2-4 weeks. [id number] Sarika Rose RN, BSN, [facility] DM Education , [address] [address] 07/12/2019 13:14:32 07/17/2019 11:36:40 Uncontrolled type 2 diabetes mellitus 873033897 E11.65 Met with Wilberto and his today [...] diabetes is progressiv e and medication s machine mover time (which includes insulin). Monitoring : Appropriat e times to test blood sugar and target blood sugars. Physical Activity : Introducti on to its importance . Effects of regular physical activity on blood sugars. Chronic Complicati ons: Introducti on to long-term effects, Importance of ABCs (A1c, Blood pressure and Cholestero l control) in limiting cardiovasc ular risk. Other strategies for [facility]. Reviewed the benefits of insulin and how he will need a long acting insulin before we start him on meal time insulin. [id number] Sarika Rose RN, BSN, [facility] DM Education , [facility] [address] [place] [address] 08/23/2019 12:54:55 08/23/2019 15:28:53 Uncontrolled type 2 diabetes mellitus 844280559 E11.65 Met with Wilberto and his today for diabetes education, kindly referred by Dr. Sweet.-He has had diabetes for about 10 years now.-Just arrived last week from [place]. No fever, no cough. -Last A1C was [...] days). 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 He is working 13 hours per [...] diabetes is progressiv e and medication s machine mover time (which includes insulin). Monitoring : Appropriat e times to test blood sugar and target blood sugars.Chr onic Complicati ons: Introducti on to long-term effects, Importance of ABCs (A1c, Blood pressure and Cholestero l control) in limiting cardiovasc ular risk. Other [facility]. [id number] Montserrat Anand PA-C , [facility], OFFICE [address] [place] [address] 08/24/2019 10:34:06 08/24/2019 17:49:12 Rib pain 094313374 R07.81 s/p fall. Advised compressio n brace and ibuprofen. RTC for worsening pain. [id number] Sarika Rose RN, BSN, [facility] DM Education , [facility] [address] [place] [address] 10/19/2019 09:06:19 10/20/2019 09:04:53 Uncontrolled type 2 diabetes mellitus 844833456 E11.65 -Virtual Appt via [employer] due to COVID-19 pandemic.- Kindly referred by [...] limiting cardiovasc ular risk. Other strategies for [facility]. Long acting insulin such as Lantus or Basaglar and the benefits for his blood sugars. [id number] Sarika Rose RN, BSN, [facility] DM Education , [facility] [address] [place] [address] 11/30/2019 10:15:19 12/01/2019 09:18:58 Uncontrolled type 2 diabetes mellitus 420662488 E11.65 -Virtual Appt via phone due to [...] that the provider location is not at [facility] Patient location: home During the visit the patient? s medical history and medical record were reviewed. The patient was notified to call our office for worsening or urgent symptoms. [id number] Wallace Sweet MD , [facility], OFFICE [address] [place] [address] 03/22/2020 10:46:30 03/25/2020 09:35:39 Mixed hyperlipidemia 448367932 E78.2 Essential hypertension 83632459 I10 Uncontroll ed type 2 diabetes mellitus 135585101 E11.65 [id number] ALAN Marcus, [facility], OFFICE [address] [place] [address] 06/13/2020 10:08:22 06/17/2020 10:27:30 Muscle pain 65280256 M79.10 advised ample rest and hydration and gentle movement. RTC for worsening/ persisting sx. [id number] ALAN Marcus, [facility], OFFICE [address] [place] [address] 06/25/2020 14:01:39 06/26/2020 13:07:05 COVID-19 075976977 U07.1 Right sided headache lingering. No red flags. Advised ample rest, hydration , OTC migrelief. F/U in 1 week or sooner for worsening sx. [id number] ALAN Marcus, [facility], OFFICE [address] [place] [address] 07/02/2020 11:31:22 07/03/2020 14:29:04 SARS-CoV-2 462970342 U07.1 MEDINA has resolved. Asymptomat ic. Back at work. RTC for concerning sx. [id number] Sarika Rose RN, BSN, [facility] DM Education , [address] [address] 08/22/2020 09:04:35 08/22/2020 10:47:49 Uncontrolled type 2 diabetes mellitus 020332915 E11.65 -Virtual Appt via phone due to [...] 180 mg/dl. -He watched on Youtube that intermediate use of Metformin causes B12 deficiency , [...] doing it correctly when he started it. [id number] Wallace Sweet MD , [facility], OFFICE [address] [place] [address] 12/30/2020 10:35:47 12/30/2020 11:37:27 Mixed hyperlipidemia 449641761 E78.2 Essential hypertension 80771244 I10 Neuropathy due to diabetes mellitus [id number] E11.40 [id number] Sarika Rose RN, BSN, [facility] DM Education , [facility] [address] [place] [address] 01/28/2021 08:11:07 01/31/2021 15:37:06 Uncontrolled type 2 diabetes mellitus [id number] E11.65 -Virtual Appt via [employer] due to COVID-19 pandemic. -Kindly referred by [...] his glucose more often. Concerned about his intermediate affects of diabetes, as he has been elevated with high A1C for many years. He likely needs short acting insulin with meals. Will discuss with Dr. Sweet about starting Humalog or Novolog. Did not get a chance to discuss this with Wilberto today and will discuss this at our next visit. [id number] Wallace Sweet MD , [facility], OFFICE [address] [place] [address] 04/03/2021 08:49:27 04/03/2021 09:15:23 Essential hypertension 92949655 I10 Mixed hyperlipidemia 267 170618 E78.2 Uncontroll ed type 2 diabetes mellitus 604486997 E11.65 [id number] Sarika Rose, RN, BSN, [facility] DM Education , [facility] [address] [place] [address] 04/08/2021 09:03:28 04/10/2021 12:59:38 Uncontrolled type 2 diabetes mellitus [id number] E11.65 -Virtual Appt via NVEL[employer] due to COVID-19 pandemic. -Kindly referred by [...] it. He bought a toe guard from [employer]. At one point, he had to get custom made, from [facility] (about 10 years ago). As soon as [...] down blood sugars. FU in 1 month. 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 refer to retina. 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 No DR OS. No CSME OU. Presbyopia 97236986 H52. 4 ok to cont with OTC readers. [id number] Sarika Rose, RN, BSN, [facility] DM Education , [facility] [address] [place] [address] 07/14/2021 09:09:17 07/15/2021 09:52:12 Uncontrolled type 2 diabetes mellitus 194429748 E11.65 -Virtual Appt via over the phone due to COVID-19 pandemic. Pt. tried connecting to NVELO, however, it would not connect (he has [...] wax in the past. Tried to call [facility] to have it removed, however, was told that [facility] is no longer doing this. About [...] in the past. Wants to see a engraver steel plate for it. There is a referral for a engraver steel plate from 04/03, encouraged he call to schedule an appt. -Asked about sensors, and discussed how he does not currently qualify for a sensor based on Medicare/[employer] edicaid strict guidelines with sensors. However, his [...] this month. Schedule an appt with the engraver steel plate . Call insurance to find out if [...] requiremen ts to go on a sensor. [id number] Wilberto Ivan DPM Podiatry, [facility] [address] [place] [address] 08/05/2021 10:29:51 08/05/2021 11:30:28 Disorder of nervous system due to type 2 diabetes mellitus 822493965 E11.49 Pronation of foot 936520 03 M21.6X9 [id number] Sarika Rose, RN, BSN, [facility] DM Education , [facility] [address] [place] [address] 09/16/2021 10:02:55 09/19/2021 11:05:31 Uncontrolled type 2 diabetes mellitus 912786491 E11.65 -Virtual Appt via over [employer] for diabetes education. -Kindly referred by Dr. [...] guard for his large calluses. Saw a engraver steel plate and was told it was due to [...] until fasting glucose are below 130 mg/dl. [id number] , [facility], OFFICE [address] [place] [address] 12/01/2021 10:39:30 12/01/2021 11:12:28 Adult health examination 684125708 Z00.00 see Risk Assessment and Lifestyle Change Counseling section above Counseling 201671043 Z71 .9 including cardivascu lar risk reduction counseling Depression screening 171 618085 Z13.31 depression screening tool administer ed, entered into emr, scored and discussed, time greater than 7.5 minutes Screening for alcohol abuse 274125807 Z13.39 Essential hypertension 29007931 I10 Mixed hyperlipidemia 267 293734 E78.2 Active or passive immunization 084949048 Z23 Uncontroll ed type 2 diabetes mellitus 172125329 E11.65 Impacted c erumen of bilateral ears [id number] 312798 H61.23 [id number] Sarika Rose, RN, BSN, [facility] DM Education , [facility] [address] [place] [address] 12/24/2021 09:05:34 01/05/2022 16:28:55 Uncontrolled type 2 diabetes mellitus 018465642 E11.65 -Virtual Appt via over NVELO today for diabetes education. -Kindly referred by [...] diarrhea. -Has blood sugars available to review today.-[place] d them off over the phone:12/24 - [...] have some numbness and tingling, saw a engraver steel plate . He gets calluses on his big toe. He has flat feet and this causes the calluses. He puts a toe guard on them when walking.-Makayla jose exam was a year ago. He went to [facility] eye doctor. He was told that [...] said that Dexcom is not covered at [employer], however, it is worth calling insurance to find out if it is covered with a DME and how much is the co-pay. The Freestyle Pushpa sensor is covered with [employer], however the co-pay is $100 per month. 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 Sent a message to Dr. Sweet about starting a small dose of Humalog or Novolog 5 units with each meal. Pt. does not currently have intermediate complicati ons. Reviewed how insulin puts him [...] and the preferred DME is [facility]. 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 mild NPDR OU, trace ME OS. new finding. PED resolved OS. refer to retina in 1-2 weeks. [id number] Sarika Rose RN, BSN, [facility] DM Education , [address] [address] 01/21/2022 09:03:01 01/21/2022 12:26:35 Uncontrolled type 2 diabetes mellitus 214179307 E11.65 -Virtual Appt via over [employer] for diabetes education. -Kindly referred by Dr. [...] connect his Freestyle Pushpa 2 sensor to [facility]'s [email or web address] account today. Download of sensor reveals:-A verage [...] prevent insulin from stacking. -Now on the [employer] Pushpa 2 sensor and had trouble with [...] he has eaten something. FU in February. [id number] Sarika Rose, RN, BSN, [facility] DM Education , [address] [address] 02/18/2022 09:43:48 02/18/2022 10:30:23 Uncontrolled type 2 diabetes mellitus 289724262 E11.65 -Virtual Appt via over the phone [...] burp and he had diarrhea. -Connected to [email or web address] and able to review his download today: [...] appt in person. FU in 1 month. [id number] Sarika Rose RN, BSN, [facility] DM Education , [facility] [address] [place] [address] 04/02/2022 10:05:34 04/02/2022 13:10:29 Uncontrolled type 2 diabetes mellitus 070729762 E11.65 -Virtual Appt via [employer] today. -Kindly referred by Dr. Sweet. -He [...] mg/dl.Carb ohydrate Ratio: 5 grams -Connected to [email or web address] and able to review his download today: [...] in 1 month to review sensor download. [id number] Mary Kate Weir MD , [facility], [address]ICE [address] [place] [address] 04/06/2022 10:40:31 04/06/2022 16:07:56 Tinnitus of left ear [id number] 106 H93.12 Temporoman dibular joint disorder 48183656 M26.609 you can use both ibuprofen and [...] the area hurts more 2 hours after. [id number] , [facility], [address]ICE [address] [place] [address] 06/18/2022 13:48:25 06/18/2022 14:18:13 Uncontrolled type 2 diabetes mellitus 410995082 E11.65 stressed importance of controllin g sugars or wounds will not healat risk of losing toes if we arent aggressive check a1c today, will call pt with results and possible med adjustment Diabetic foot ulcer 8220 53689 E13.621 start abx, refer to wound caresee above [id number] Sheri Mata MD , [facility], [address] [place] [address] 07/22/2022 14:28:48 07/22/2022 15:55:20 Uncontrolled type 2 diabetes mellitus 684313087 E11.65 stressed importance of controllin g sugars or wounds will not healat risk of losing toes if we arent aggressive last a1c 10.7contin ue meds, pt aggressive ly managingre peat a1c september, see me afterdior grace message sent with info on nutrition consult name and number Diabetic foot ulcer 3710 14029 E13.621 slowly improvemen tcontinue with wound care [id number] Sheri Mata MD FP, [facility], [address]ICE [address] [place] [address] 08/10/2022 07:40:22 08/10/2022 08:42:21 Uncontrolled type 2 diabetes mellitus 400838599 E11.65 stressed importance of controllin g sugars [...] per month Neuropathy due to diabetes mellitus 865912404 E11.40 as above Diabetic foot ulcer 3710 00294 E13.621 slowly improvemen tcontinue with wound careMRI pending to rule out osteomyeli tis [id number] Sheri Mata MD FP, [facility], [address]ICE [address] [place] [address] 09/21/2022 14:38:30 09/21/2022 16:20:39 Essential hypertension 12323346 I10 well controlled on med Uncontroll ed type 2 diabetes mellitus 304011488 E11.65 a1c down to 7.9!contin ue diet, exercisewi ll back down lantus to avoid lows overnightc ontinue humalogrep eat labs, see me 3 monthsi will research berberine for safety Diabetic foot ulcer 3710 51680 E13.621 slowly improvemen tcontinue with wound care Health Concerns Section Related Observation LastModified by Organization Detai ls LastModified Time None Recorded Concern Status LastModified by Organization Details LastModified Time None Recorded Advance Directives Directive N: Payers Encounter Date Sequence Insurance Name Policy Number Policy Orozco Covered Member ID Orozco Member ID Guarantor Name 04/06/2022 1 [facility] [id number] Wilberto Diegoand [id number] Wilberto Aquino [facility] 06/18/2022 1 [facility] [id number] Wilberto Diegoand [id number] Wilberto Aquino Zoraida 07/22/2022 1 [facility]) [id number] Wilberto Aquino [facility] [id number] Wilberto Aquino [facility] 08/10/2022 1 [facility]) [id number] Wilberto Aquino [facility] [id number] Wilberto Aquino [facility] 09/21/2022 1 [facility]) [id number] Wilberto Aquino [facility] [id number] Wilberto Aquino [facility] Notes Date Note Type Note Provider Name and Address Organization Details Recorded Time 04/06/2022 text/html Pt reports L artur e ear and jaw pain ongoing about 2 wks, feels like he can hear constant humming in L ear, Denies drainage or swelling. Pain is worse when he opens his mouth. Mary Kate Weir MD [address] [place] [address], [phone], [facility] 04/06/2022 11:43:41 06/18/2022 text/html Foot issues. Big toe on both feet. Calluses. Blood blisters. presents to discuss feet. Has to wear steel toed shoes at work and now toes have painful blisters. Not checkin sugars. Taking meds as listed Sheri Mata MD [address] [place] [address], [phone], [facility] 06/18/2022 14:22:38 07/22/2022 text/html Patient presents to the office today for f/u on sore on foot. for followup foot ulcer and DM. Sugars mostly under 150. Taking meds as listed. WOrking hard on controlling.Seeing wound care, foot healing slowlyHasnt heard about nutrition consult Sheri Mata MD [address] [place] [address], [phone], [facility] 07/22/2022 14:59:41 08/10/2022 text/html Patient presents to [...] 3-4 times per day Sheri Mata MD [address] [place] [address], [phone], [facility] 08/10/2022 08:23:38 09/21/2022 text/html for followup DM. Working very hard. Taking 50 lantus HS and 30 humalog with meals. Has been having lows in middle of night.Seeing wound care for foot. Had a setback, Was casted and caused infection, on two abx nowread about berberine, herb used in [place] for DM, wonders if can tryhad colon last week, normal Sheri Mata MD [address] [place], [address], [facility] 09/21/2022 15:30:10
== END 2024-09-13 10:49 | disposition home or self-care (01) ==
LOC: HO.HOS 10:07
PROVIDERS: PCP Internal Medicine
DX: M65.331 Trigger finger, right middle finger (principal); M65.321 Trigger finger, right index finger; M65.322 Trigger finger, left index finger; M65.332 Trigger finger, left middle finger
CPT/HCPCS: 99214

== ENCOUNTER → 2024-09-14 23:59 | Outpatient (BNV) | payer OTHER, SELFPAY | PROVIDERS: PCP Internal Medicine; Visit Provider Internal Medicine Cardiovascular Disease | DX: I20.89 Other forms of angina pectoris (principal) | CPT/HCPCS: 93458; 99152 ==

== ENCOUNTER 2024-09-28 11:05 | Outpatient (AMB) | payer OTHER, SELFPAY ==
--- NOTE | 2024-09-28 11:24 | A.OFFVIS_ITS ---
Vital Signs 09/28/24 11:26 Height 5 ft 10 in Weight 219 lb 9.286 oz BMI 31.5 BP 140/72 H Blood Pressure Location Lt brachial Position Sitting Pulse 66 Pulse Source Pulse Oximeter Intake Visit Reasons: Follow up post cardiac cath Acid Treater Required: No Accompanied by: Self / Same As Patient Allergies semaglutide [From Ozempic] Adverse Reaction (Intermediate, Verified 09/13/24 10:15) burping Medication List - Last Reconciled 09/28/24 by Santi George MD aspirin (Adult Aspirin Regimen) 81 mg PO DAILY atorvastatin 80 mg PO QPM [Diabetic shoes As directed] empagliflozin (Jardiance) 25 mg PO DAILY flash glucose sensor (ProPlan Pushpa 2 Sensor kit) USE DIRECTED TO MONITOR BLOOD GLUCOSE DAILY. CHANGE SENSOR EVERY 14 DAYS insulin glargine (Lantus Solostar U-100 Insulin) 40 units (0.4 mL) subcut QPM insulin lispro (Humalog KwikPen (U-100) Insulin) 25 units (0.25 mL) subcut TID lisinopril 5 mg PO DAILY metformin 1,000 mg PO BID metoprolol succinate ER (Toprol XL) 50 mg PO DAILY 90 days multivitamin 1 tab PO DAILY nitroglycerin 0.4 mg sublingual Q5M PRN HPI Comments Details: Wilberto returns for follow-up. Recently seen in consultation regarding abnormal stress test. Multiple cardiovascular risk factors including diabetes, hypertension, dyslipidemia. No previously diagnosed coronary disease. With physical exertion, he gets some discomfort in the chest, possible angina but he is somewhat nondescript about that. He came for an ETT. There was no chest discomfort but had hypertensive blood pressure response and EKG suggestive of ischemia. Subsequently, underwent exercise stress MIBI. In that study, EKG was abnormal but perfusion described to be normal. Following this, sent for coronary CTA eventually diagnostic catheterization. Multivessel disease. Awaiting bypass surgery. He states the surgery appointment has been canceled twice and rescheduled again for tomorrow. Overall, he feels just about the same as before. He still gets some discomfort in the chest off and on but for the most part feels okay. [facility] Medical History (Updated 09/05/24 @ 15:42 by Santi George MD) Blood pressure elevated without history of HTN Diarrhea Asthma Surgical History Hx of cardiac cath Hx of tonsillectomy Aftercare following bilateral shoulder joint replacement surgery History of appendectomy Family History Mother Emphysema lung Father Heart failure Brother Substance use disorder Mental health disorder Brother No problems noted. Brother No problems noted. Sister No problems noted. Daughter No problems noted. Son No problems noted. Son No problems noted. Social History Housing: House Alcohol intake: current Alcohol intake frequency: a few times a week Alcohol type: beer Patient Tobacco Use Status: Never used Tobacco e-Cigarette/Vaping Use: Never Used Second Hand Smoke Exposure: No service: No Current occupational status: employed Cognitive needs: No Hearing needs: No Vision needs: Yes (Glasses) Review of Systems Const Denies chills, Denies fatigue, Denies fever(s), Denies frequent falls, Denies weakness, Denies weight gain and Denies weight loss ENT Reports dizziness Card Reports chest pain, Reports chest pain at rest, Reports chest pain with activity, Denies leg edema, Reports lightheadedness, Denies palpitations, Reports dyspnea and Reports dyspnea on exertion Resp Denies cough, Reports dyspnea and Reports dyspnea on exertion GI Denies hematochezia Musc Denies abnormal gait, Denies muscle weakness, Reports numbness, Denies radiating pain into limb and Reports tingling Neuro Denies abnormal gait, Reports dizziness, Denies frequent falls, Reports numbness, Reports tingling and Denies weakness Endo Denies fatigue and Denies palpitations Physical Exam Vital Signs: Last Vital Signs Pulse 66 09/28/24 11:26 BP 140/72 H 09/28/24 11:26 BMI result Body Mass Index 31.5 Const General: comfortable and no acute distress Orientation/consciousness: patient oriented x3 HEENT Other: Unremarkable Head: Yes normal to inspection Neck Neck: Yes normal visual inspection Chest Chest palpation & inspection: normal inspection of the chest Resp Auscultation: clear to auscultation bilaterally Cardio Palpation: normal PMI Heart sounds: S1 normal heart sound present, S2 normal heart sound present, no gallops, no murmurs and no rubs GI Palpation (GI): Soft to palpation Back/Spine/Pelvis Other: unremarkable Skin General skin exam: no rashes or lesions noted Neuro General: patient oriented x3 Extrem General: Yes normal to inspection Psych Mental Status: mental status grossly normal Assessment & Plan Assessment & Plan (1) Atherosclerotic cardiovascular disease: Code(s): I25.10 - Atherosclerotic heart disease of [place] coronary artery without angina pectoris Category: Medical (2) Type 2 diabetes mellitus with hyperglycemia: Code(s): E11.65 - Type 2 diabetes mellitus with hyperglycemia Category: Medical (3) Primary hypertension: Code(s): I10 - Essential (primary) hypertension Category: Medical (4) Hypercholesterolemia: Code(s): E78.00 - Pure hypercholesterolemia, unspecified Category: Medical Plan Cardiac studies reviewed. In the echocardiogram, LVEF > 70%. Basal inferior, mid inferior, basal inferoseptal hypokinesis. Mild aortic valve calcification. In ETT, hypertensive blood pressure response. EKG evidence of ischemia but no angina. Lexiscan myocardial perfusion imaging study shows normal perfusion. EKG again positive for ischemia. In the coronary CTA, at least moderate stenosis in the mid to distal LAD. cannot exclude severe stenosis. Minimal stenosis in the proximal to mid LAD and in the very distal LAD. Probable moderate stenosis in the mid circumflex. Mild stenosis in the RCA. FFR is pending. In the diagnostic catheterization, severe stenosis in the mid LAD, mid RCA and ostial circumflex vessels. Overall, multiple cardiovascular risk factors, stable angina, multivessel coronary disease and awaiting coronary artery bypass surgery. Continue low-dose aspirin. We will go up on the beta-harsh dosing. He states he gets headaches with nitro. High-dose statins. Avoid strenuous physical activity. We will see him in follow-up after the bypass surgery. To seek emergency care as necessary. Discussion Notes We discussed the patient's diagnosis of significant multi-vessel coronary artery disease, necessitating triple coronary artery bypass grafting (CABG). We reviewed the severity of stenosis in the left anterior descending artery, circumflex artery, and right coronary artery, an operation necessary to prevent further cardiac complications. I provided details on the surgical process and prognostic outcomes, explaining that bypass grafts would likely involve the internal mammary artery and saphenous vein. I outlined recovery expectations, emphasizing the three-month period necessary for optimal recovery and restrictions such as heavy lifting and driving during this time. Additionally, I documented the adjustment of Metoprolol dose to 75 mg daily to manage symptoms effectively and allow Nitro to remain as an as-needed option due to headaches. The patient was informed of all surgical risks, potential complications, and anticipated recovery trajectory. Patient was informed and verbally consented to the use of an ambient scribe for clinic note documentation during this visit. Medications: New metoprolol succinate ER (Toprol XL) Total 75mg daily. 25 mg PO DAILY 90 tabs 1RF Patient Instructions: - Continue taking Metoprolol, increasing the dose to 75 mg per day, as prescri bed. - Use Nitro only as needed due to headaches. - Schedule and attend the upcoming surgery appointment with Dr. Wood. - Plan for a recovery period of 3 months, avoiding heavy lifting and driving. - Expect hospital stay post-surgery. - Contact the medical office with any concerns or unusual symptoms. - Take it easy with exercise and work-related physical activities during recovery. - Follow all post-operative care instructions provided after surgery. - Return for follow-up appointments as scheduled. - Watch for signs of chest pain or other concerning symptoms, and seek medical attention if they occur. Coding Level of Care Code Est Pt Level 4 (10302) Complex EM visit Add On G2211 Diagnoses Atherosclerotic cardiovascular disease I25.10 Type 2 diabetes mellitus with hyperglycemia E11.65 Primary hypertension I10 Hypercholesterolemia E78.00
[2024-09-28 11:26] VITALS: BP 140/72; PULSE 66; BMI 31.5
--- OUTSIDE RECORDS SUMMARY | 2024-09-28 13:37 | XMS_ITS | Data Portability ---
Author Organization [facility], FORMERLY [facility] Address [address] [place] [address] Care Team Providers Care Hospital Cleaner Name Role Phone JOSS WHEELER Chemical Dependency Professional SHAREE MARTINEZ Intercell Connector Placer ERNIE DEAN Construction Administrator Assessment Encounter Date Assessment Date Assessment LastModified by Organization Details LastModified Time 09/21/2022 09/21/2022 colon 10/[address] chin [email or web address] Not available 09/21/2022 15:28:01 Plan of Treatment Reminders Order Date Submit Date Provider Last Modified By Organization Details Last Modified Time Details Appointments None recorded. Lab HbA1c (hemoglobin A1c), blood 2022 023 [facility], [address] [place], [address], 3 11:02:52 microalbumi n/creatinin e, ratio panel, urine 2022 023 [facility], [address] [place], [address], 3 12:27:09 Referral wound care referral - DM foot ulcers, both great toes 2022 023 [email or web address] Hammonds [facility], [address] [place] [address] [place], [address], 3 10:12:51 nutritionis t/dietitian referral 2022 023 [email or web address] Suze Whipple, [address] [place] [address] [place], [address], 3 10:49:02 otolaryngol ogist referral - tinnitus and TMJ same side; please eval and Rx as needed 2021 022 [email or web address] Dunia Burkett MD, [address] [place], [address], 2 11:14:12 Procedures None recorded. Surgeries None recorded. Imaging None recorded. Medication Orders cephalexin [address] [facility], [address] [place] [address], [place], [address], 14:38:26 Patient TargetsNo targets recorded. Patient InstructionsNo instructions recorded. 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 METAB OLIC PANEL glucose 262 mg/dL 70-100 high Not Available [address], [address], 06/19/2022 11:00:07 06/18/19 23 06/19/2022 COMP. METAB OLIC PANEL BUN 13 mg/dL 7-18 Not Available [address], [address], 06/19/2022 11:00:07 06/18/19 23 06/19/2022 COMP. METAB OLIC PANEL creatinine 1.0 mg/dL 0.8-1. 3 Not Available [address], [address], 06/19/2022 11:00:07 06/18/19 23 06/19/2022 COMP. METAB OLIC PANEL B/C 13.0 ratio Not Available [address], [address], 06/19/2022 11:00:07 06/18/19 23 06/19/2022 COMP. METAB [...] be used in pregn valentina. Not Available [address], [address], 06/19/2022 11:00:07 06/18/19 23 06/19/2022 COMP. METAB OLIC PANEL sodium 140 mmol/ L 136-14 5 Not Available [address], [address], 06/19/2022 11:00:07 06/18/19 23 06/19/2022 COMP. METAB OLIC PANEL potassium 5.0 mmol/ L 3.5-5. 1 Not Available [address], [address], 06/19/2022 11:00:07 06/18/19 23 06/19/2022 COMP. METAB OLIC PANEL chloride 101 mmol/ L 96-107 Not Available [address], [address], 06/19/2022 11:00:07 06/18/19 23 06/19/2022 COMP. METAB OLIC PANEL anion gap 7.6 5.0-15 .0 Not Available [address], [address], 06/19/2022 11:00:07 06/18/19 23 06/19/2022 COMP. METAB OLIC PANEL CO2 31 mmol/ L 21-32 Not Available [address], [address], 06/19/2022 11:00:07 06/18/19 23 06/19/2022 COMP. METAB OLIC PANEL calcium 9.2 mg/dL 8.5-10 .3 Not Available [address], [address], 06/19/2022 11:00:07 06/18/19 23 06/19/2022 COMP. METAB OLIC PANEL total protein 7.2 g/dL 6.4-8. 2 Not Available [address], [address], 06/19/2022 11:00:07 06/18/19 23 06/19/2022 COMP. METAB OLIC PANEL albumin 4.2 g/dL 3.4-5. 0 Not Available [address], [address], 06/19/2022 11:00:07 06/18/19 23 06/19/2022 COMP. METAB OLIC PANEL globulin 3.0 g/dL Not Available [address], [address], 06/19/2022 11:00:07 06/18/19 23 06/19/2022 COMP. METAB OLIC PANEL A/G 1.4 ratio 0.8-2. 0 Not Available [address] [place], [address], 06/19/2022 11:00:07 06/18/19 23 06/19/2022 COMP. METAB OLIC PANEL total bilirubin 0.80 mg/dL 0.00-1 .00 Not Available [address], [address], 06/19/2022 11:00:07 06/18/19 23 06/19/2022 COMP. METAB OLIC PANEL AST 20 U/L 0-37 Not Available [address], [address], 06/19/2022 11:00:07 06/18/19 23 06/19/2022 COMP. METAB OLIC PANEL ALT 37 U/L 6-63 Not Available [address], [address], 06/19/2022 11:00:07 06/18/19 23 06/19/2022 COMP. METAB OLIC PANEL alk. phos. 117 U/L 50-136 Not Available [address], [address], 06/19/2022 11:00:07 06/18/19 23 06/19/2022 LIPID PANEL cholesterol 191 mg/dL <200 mg/dl Maty able 200-2 39 mg/dl Borde rline High >240 mg/dl High Not Available [address], [address], 06/19/2022 11:00:09 06/18/19 23 06/19/2022 LIPID PANEL triglyceride s 289 mg/dL high LIPS= Speci men Sligh tly Lipem ic. Chem Resul ts may be effec nicole. <150 mg/dL Karley l 150-1 99 mg/dL Borde rline High 200-4 99 mg/dL High >500 mg/dL Very High Not Available [address], [address], 06/19/2022 11:00:09 06/18/19 23 06/19/2022 LIPID PANEL direct HDL 54 mg/dL <40 mg/dl - Major Risk for CHD >60 mg/dl - Negat garry Risk for CHD Not Available [address], [address], 06/19/2022 11:00:09 06/18/19 23 06/19/2022 DIREC T [...] r is not neces audrey. Not Available [address], [address], 06/19/2022 11:00:11 06/18/19 23 06/19/2022 HGB A1C [...] furth er confi rmati on Not Available [address], [address], 06/19/2022 12:22:00 06/18/19 23 06/19/2022 HGB A1C estimated average glucose 260.4 mg/dL Not Available [address], [address], 06/19/2022 12:22:00 09/13/19 23 09/14/2022 HGB A1C [...] furth er confi rmati on Not Available [address], [address], 09/14/2022 11:02:52 09/13/19 23 09/14/2022 HGB A1C estimated average glucose 180.0 mg/dL Not Available [address], [address], 09/14/2022 11:02:52 09/13/19 23 09/14/2022 MICRO ALBUM IN/CR EATIN INE RATIO PANEL , URINE microalbumin 8.0 mg/L 1.3-20 .0 Not Available [address], [address], 09/14/2022 12:27:09 09/13/19 23 09/14/2022 MICRO ALBUM IN/CR EATIN INE RATIO PANEL , URINE creatinine urine 100.6 mg/dL 30.0-1 25.0 Not Available [address], [address], 09/14/2022 12:27:09 09/13/19 23 09/14/2022 MICRO ALBUM IN/CR EATIN INE RATIO PANEL , URINE microalb/cre at ratio 8.0 mg/g_ creat 0.0-29 .0 Not Available [address], [address], 09/14/2022 12:27:09 06/10/20 22 06/10/2022 US abdom [...] wnl IVC: appear s wnl WALLACE SWEET [facility] [address] [facility], [place], [address], 06/11/2022 07:07:36 10/14/19 23 09/17/2022 colon oscop y proce dure (PROC ) No observ ation record ed. BARCODE Not Available 2022 11:32:22 Result Notes None recorded. Problems Name Problem SNOMED Code Status Onset Date Resolution Date Notes Provider Name and Address Organization Details Recorded Time Essential hypertensi on 98285363 Active Not Available [facility] 3 21:02:46 Excessive cerumen in ear canal 138009593 Active Not Available [facility] 3 21:02:46 Anxiety 60718083 Active 2016 Not Available [facility] 3 21:02:46 Neuropathy due to diabetes mellitus 529325401 Active 2018 Not Available [facility] 3 21:02:46 Mixed hyperlipid emia 766889823 Active 2006 Not Available [facility] 3 21:02:46 Internal hemorrhoid s 17466757 Completed 200205/03/2013 Not Available [facility] 3 02:03:12 Effusion of joint of shoulder region 36669926 Completed 03/27/2014 Wallace Sweet MD [address] [place] [address], [address] , [facility] 4 05:26:27 Impotence of organic origin Active 2007 Not Available [facility] 3 21:02:46 Carpal tunnel syndrome 14478186 Active 2001 Not Available [facility] 3 21:02:46 Diabetes mellitus 20913569 Completed 200603/27/2014 Wallace Sweet MD [address] [place] [address], [address] , [facility] 4 05:26:27 Disorder of bursa of shoulder region 81928106 Completed 200705/03/2013 Not Available [facility] 3 02:04:09 Temporoman dibular joint disorder 87703010 Completed 200103/27/2014 Wallace Sweet MD [address] [place] [address], [address] , [facility] 4 05:26:43 Shoulder pain 66095196 Completed 200707/29/2008 Not Available [facility] 3 03:03:47 Shoulder pain 89919151 Completed 05/03/2013 Not Available [facility] 3 02:01:00 Benign essential hypertensi on 6071874 Completed 01/19/2012 Not Available [facility] 3 03:03:47 Impacted cerumen 53678712 Completed 200005/03/2013 Not Available [facility] 3 02:02:10 Pure hyperchole sterolemia 734847060 Completed 200203/27/2014 Wallace Sweet MD [address] [place] [address], [address] , [facility] 4 05:26:27 Medial epicondyli tis 80722829 Completed 200705/03/2013 Not Available [facility] 3 02:04:00 Obesity 387353634 Active 2006 Not Available [facility] 3 21:02:46 Abdominal pain 98108401 Completed 200205/03/2013 Not Available [facility] 3 02:01:20 On examinatio n - a rash Completed 05/03/2013 Not Available [facility] 3 02:00:46 Type 2 diabetes mellitus without complicati on 020210725 Completed 03/27/2014 Wallace Sweet MD [address] [place] [address], [address] , [facility] 4 05:26:43 Type 2 diabetes mellitus without complicati on 478047747 Completed 200601/05/2012 Not Available [facility] 3 03:03:47 Hearing loss 59844712 Active 2001 Not Available [facility] 3 21:02:46 Renal disorder due to type 2 diabetes mellitus 798322530 Active 2006 Not Available [facility] 3 21:02:46 Elevated blood-pres sure reading without diagnosis of hypertensi on 049483539 Completed 200103/27/2014 Wallace Sweet MD [address] [place] [address], [address] , [facility] 4 05:26:27 Sprain of knee and leg Completed 200205/03/2013 Not Available [facility] 3 02:03:04 Uncontroll ed type 2 diabetes mellitus 015658819 Active 2007 Not Available [facility] 3 21:02:46 Scrotal varices Active 2001 Not Available [facility] 3 21:02:46 Otogenic otalgia 67203957 Completed 200105/03/2013 Not Available [facility] 3 02:03:18 Notes:Some problems listed i n Document: #[id number] could not be added to this patient's chart. Please review this document and add these problems to the patient's chart manually as needed. Problem Notes None recorded. Procedures Surgical History Date Name Laterality Status Provider Name and Address Organization Details Recorded Time 01/09/20 22 Fundus Photography completed Erna Villalpando, OD [address] [place] [address], [phone], [facility] 01/09/2022 13:35:41 04/25/20 21 Fundus Photography completed Erna Villalpando, OD [address] [place] [address], [address], [facility] 04/25/2021 09:33:54 04/25/20 21 Optical Coherence Tomography (Retina) completed Erna Villalpando, OD [address] [place] [address], [address], [facility] 04/25/2021 09:34:09 05/23/20 19 Cerumen Removal - Irrigation/Lavag e completed Anabelle Bragg [facility] 05/23/2019 11:33:23 10/06/19 19 Cerumen Removal - Irrigation/Lavag e completed Yvonne Edwards [facility] 10/05/2018 14:20:07 01/08/20 18 Cerumen Removal - Irrigation/Lavag e completed Akua Pizano LPN [facility] 01/07/2018 16:13:04 07/19/19 18 Cerumen Removal - Irrigation/Lavag e completed Mary Lott LPN [facility] 07/19/2017 11:26:34 11/25/19 17 Glucose Meter Teaching completed Akua Pizano LPN [facility] 11/24/2016 09:44:01 09/20/19 17 Cerumen Removal - Irrigation/Lavag e completed Karina Eseppi [facility] 09/19/2016 13:28:46 12/17/19 16 Cerumen Removal completed Michelle Mary LPN [facility] 12/17/2015 11:32:24 03/07/20 15 Cerumen Removal completed Viri Gomez RN [facility] 03/07/2015 17:46:53 06/06/20 14 Cerumen Removal completed Shannan VelasquezGilles CONNOLLY [facility] 06/06/2014 09:00:42 10/06/19 13 Cerumen Removal completed Michelle Mary LPN [facility] 10/05/2012 11:59:21 04/14/20 12 Other (specify) completed Domenic Collazo MD [address] [place] [address], [phone], [facility] 04/04/2014 14:03:38 01/19/20 12 Cerumen Removal completed Cate Sims RN [facility] 01/19/2012 12:04:10 12/22/19 12 Treatment and Advice completed Ammy Chou OT [address] [place] [address], [address], [facility] 12/22/2011 13:00:06 08/11/19 11 Cerumen Removal completed [facility] 08/11/2010 16:18:17 10/15/19 10 Cerumen Removal completed Zo Johnston LPN [place] Irvin Cardenas y [facility] 10/14/2009 11:03:38 08/08/19 10 Aspiration Major Joint/Bursa completed Wallace Sweet MD [address] [place] [address], [address], [facility] 08/08/2009 12:04:47 06/14/19 10 Other (specify) completed Domenic Collazo MD [address] [place] [address], [address], [facility] 04/04/2014 14:03:38 12/20/19 09 Cerumen Removal completed Marge Richey NP [address] [place] [address], [address], [facility] 12/19/2008 09:54:31 06/14/18 84 Appendectomy completed Domenic Collazo MD [address] [place], [address], [facility] 04/04/2014 14:03:38 06/14/18 71 Other (specify) completed Domenic Collazo MD [address] [place], [address], [facility] 04/04/2014 14:03:38 Imaging Results Imaging Date Name Status LastModified by Organiz ation Details LastModified Time 06/10/2022 US abdomen limited right upper quadrant completed [facility] [address] [place], [address], 06/11/2022 07:07:36 09/17/2022 colonoscopy procedure (PROC) completed [facility] Information not available 10/13/2022 11:32:22 Procedure Notes None recorded. Medical Equipment None Reported. Allergies Allergen ID Allergen Name Allergen Category Reaction Reaction Severity Criticality Documentation Date Start Date Code Code System Note Provider Name and Address Organization Details Recorded Time Trulicity medicatio n abdominal pain moderate Not available 03/22/2020 78695 96 RxNorm Jumana Johnson MA [facility], [facility] 11:01:03 Medications Name Sig Start Date Stop [...] cm 84 /min 98.1 [degF] 31.1 kg/m2 30255.7 5 g 136 mm[Hg] 74 mm[Hg] Socorro Mckeon [facility] 2 11:09:57 Date Recorded Body height Body mass index (BMI) Body weight Body temperature Heart rate Oxygen saturation Oxygen saturation in Arterial blood by Pulse oximetry Systolic blood pressure Diastolic blood pressure Provider Name and Address Organization Details Last Updated DateTime 3 177.8 cm 31.7 kg/m2 395353. 91 g 98.1 [degF] 90 /min 97 % 97 % 140 mm[Hg] 66 mm[Hg] VICKI Funes [facility] 3 14:03:45 Date Recorded Body height Heart rate Oxygen saturation Oxygen saturation in Arterial blood by Pulse oximetry Systolic blood pressure Diastolic blood pressure Provider Name and Address Organization Details Last Updated DateTime 3 177.8 cm 80 /min 97 % 97 % 128 mm[Hg] 60 mm[Hg] Gloria Crockett MA [facility] 3 14:42:18 Date Recorded Body height Heart rate Oxygen saturation Oxygen saturation in Arterial blood by Pulse oximetry Systolic blood pressure Diastolic blood pressure Provider Name and Address Organization Details Last Updated DateTime 3 177.8 cm 82 /min 96 % 96 % 112 mm[Hg] 60 mm[Hg] Gloria Crockett MA [facility] 3 08:07:48 Date Recorded Body weight Body temperature Heart rate Respiratory rate Oxygen saturation Oxygen saturation in Arterial blood by Pulse oximetry Systolic blood pressure Diastolic blood pressure Provider Name and Address Organization Details Last Updated DateTime 3 69079.4 7 g 97.2 [degF] 88 /min 16 /min 96 % 96 % 144 mm[Hg] 69 mm[Hg] Gloria Crockett MA [facility] 3 15:25:48 Date Recorded Body height Body mass index (BMI) Body weight Systolic blood pressure Diastolic blood pressure Provider Name and Address Organization Details Last Updated DateTime 09/21/2022 177.8 cm 32.7 kg/m2 597520.0 6 g 128 mm[Hg] 64 mm[Hg] Gloria Crockett MA [facility] 3 15:11:54 Social History Question Answer Notes LastModified by Organizat ion Details LastModified Time Tobacco Smoking Status Never Smoker Not Available [facility] 2011 04:53:49 Do You Have An Advance Directive? No [email or web address] Information not available 2011 What Is Your Level Of Alcohol Consumption? 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 09/21/2022 [email or web address] Information not available 09/21/2022 How Many Children [...] Other Forms Of Tobacco Or Nicotine? No [email or web address] Information not available 07/22/2022 Sex: Unknown Functional [...] Td(adult) unspecified formulation 7 completed Not Available [facility] 10/01/2022 21:02:47 influenza, unspecified formulation 7 completed Not Available [facility] 10/01/2022 21:02:47 pneumococcal polysaccharide PPV23 7 completed Not Available [facility] 10/01/2022 21:02:47 influenza, unspecified formulation 7 completed Not Available [facility] 10/01/2022 21:02:47 influenza, unspecified formulation 8 completed Not Available [facility] 10/01/2022 21:02:47 Influenza, split virus, quadrivalent, PF 3 completed Not Available [facility] 07/01/2019 02:26:42 Influenza, split virus, trivalent, preservative 4 completed Not Available [facility] 10/01/2022 21:02:47 Influenza, split virus, quadrivalent, PF 9 completed Not Available [facility] 07/01/2019 02:38:00 Tdap 2 completed Wallace Sweet MD [address] [place] [address], [phone], [facility] 12/02/2021 13:46:50 COVID-19, mRNA, LNP-S, PF, 30 mcg/0.3 mL dose 1 completed Not Available [facility] 10/01/2022 21:02:47 COVID-19, mRNA, LNP-S, PF, 30 mcg/0.3 mL dose 1 completed Not Available [facility] 10/01/2022 21:02:47 Past Encounters Encounter ID Performer Location Encounter Start Date Encounter Closed Date Diagnosis/Indication Diagnosis SNOMED-CT Code Diagnosis ICD10 Code Diagnosis Note [id number] [facility], OFFICE [address] [place] [address] 10/27/2000 10:45:00 07/04/2008 02:02:29 [id number] [facility], OFFICE [address] [place] [address] 11/25/2001 10:38:36 07/04/2008 02:02:29 [id number] [facility], OFFICE [address] [place] [address] 11/22/2001 12:58:05 07/04/2008 02:02:29 [id number] [facility], OFFICE [address] [place] [address] 02/17/2002 10:16:06 07/04/2008 02:02:29 [id number] [facility], OFFICE [address] [place] [address] 04/11/2002 10:38:32 07/04/2008 02:02:29 [id number] [facility], OFFICE [address] [place] [address] 05/18/2002 08:54:31 07/04/2008 02:02:29 [id number] [facility] - [facility] [address] [place] [address] 06/23/2002 08:25:25 07/04/2008 02:02:29 [id number] [facility], OFFICE [address] [place] [address] 10/27/2002 10:38:56 07/04/2008 02:02:29 [id number] [facility], OFFICE [address] [facility] [place] [address] 12/04/2002 14:46:36 07/04/2008 02:02:29 [id number] LAB - [facility] [address] [place] [address] 12/04/2002 00:00:00 07/04/2008 02:02:29 [id number] FP [facility], OFFICE [address] [facility] [place] [address] 12/19/2002 16:00:41 07/04/2008 02:02:29 [id number] FP, [facility], OFFICE [address] [facility] [place] [address] 05/21/2003 13:45:19 05/21/2003 17:33:03 [id number] FP [facility], OFFICE [address] [facility] [place] [address] 11/01/2003 16:14:38 11/02/2003 10:55:10 [id number] [facility], OFFICE [address] [facility] [place] [address] 06/09/2004 09:12:28 06/09/2004 14:35:16 [id number] FP, [facility], OFFICE [address] [facility] [place] [address] 07/17/2005 09:52:58 07/17/2005 15:36:35 [id number] FP [facility], OFFICE [address] [facility] [place] [address] 07/05/2006 10:47:49 07/05/2006 15:09:32 [id number] LAB - [facility] [address] [place] [address] 07/06/2006 07:27:25 07/06/2006 07:27:29 [id number] FP [facility], OFFICE [address] [facility] [place] [address] 07/09/2006 13:58:02 07/09/2006 15:28:32 [id number] LAB - [facility] [address] [place] [address] 07/09/2006 14:56:53 07/09/2006 14:57:19 [id number] FP, [facility], OFFICE [address] [facility] [place] [address] 07/16/2006 00:00:00 07/04/2008 02:02:29 [id number] [facility], OFFICE [address] [facility] [place] [address] 07/23/2006 07:25:57 07/23/2006 11:32:05 [id number] [facility], OFFICE [address] [place] [id number] 07/26/2006 13:43:23 07/26/2006 16:17:18 [id number] LAB - [facility] [address] [id number] 08/09/2006 07:13:41 08/09/2006 07:13:45 [id number] [facility], OFFICE [address] [place] [id number] 08/27/2006 08:04:39 08/27/2006 11:15:54 [id number] [facility], OFFICE [address] [place] [id number] 08/24/2006 08:24:16 09/13/2006 14:24:02 [id number] [facility], OFFICE [address] [place] [address] 12/21/2006 14:50:21 12/23/2006 08:29:08 [id number] LAB - [place] [place] [address] 12/24/2006 07:43:32 12/24/2006 07:43:36 [id number] LAB - [place] [place] [address] 03/16/2007 07:12:11 03/16/2007 07:12:16 [id number] [facility], OFFICE [address] [place] [address] 03/22/2007 15:01:47 07/04/2008 02:02:29 [id number] [facility], OFFICE [address] [place] [address] 05/23/2007 09:05:39 07/04/2008 02:02:29 [id number] LAB - [facility] [address] [place] [address] 05/27/2007 07:46:56 05/27/2007 07:47:00 [id number] [facility], OFFICE [address] [place] [address] 07/22/2007 10:48:34 07/04/2008 02:02:29 [id number] [facility], OFFICE [address] [place] [address] 12/22/2007 14:13:35 07/04/2008 02:02:29 [id number] LAB - [facility] [address] [place] [address] 12/21/2007 07:18:47 12/21/2007 07:18:53 [id number] Physical Therapy, [facility] [address] [id number] 12/28/2007 16:24:57 12/29/2007 09:55:50 [id number] [facility], OFFICE [address] [facility] ANN [id number] 01/16/2008 13:54:48 07/04/2008 02:02:29 [id number] Physical Therapy, [facility] [address] [place] [address] 01/11/2008 16:24:51 01/24/2008 14:08:00 [id number] [facility], OFFICE [address] [facility] ANN [id number] 6 02/22/2008 08:46:10 07/04/2008 02:02:29 [id number] [facility], OFFICE [address] [facility] [place] [place] [address] 02/27/2008 10:14:54 07/04/2008 02:02:29 [id number] LAB - [facility] [address] [place] [address] 04/19/2008 07:02:00 04/19/2008 07:02:05 [id number] [facility], OFFICE [address] [facility] [place] [place] [address] 05/03/2008 09:17:10 07/04/2008 02:02:29 [id number] [facility], OFFICE [address] [facility] [place] [address] 05/08/2008 10:28:13 07/04/2008 02:02:29 [id number] [facility], OFFICE [address] [facility] [place] [address] 05/17/2008 10:44:38 07/04/2008 02:02:29 [id number] [facility], OFFICE [address] [facility] [place] [address] 07/26/2008 10:36:24 07/30/2008 11:01:51 [id number] [facility], OFFICE [address] [facility] [place] [place] [address] 11/07/2008 10:33:14 11/12/2008 14:37:51 [id number] Radiology , [facility] [address] [place] [address] 11/07/2008 11:51:45 11/09/2008 11:42:29 [id number] , [facility], OFFICE 70 [facility] [place]DEZ[address] 6 12/19/2008 09:10:58 12/19/2008 14:12:15 [id number] , [facility], OFFICE [address] [facility] [place] [address] 02/20/2009 16:27:04 02/21/2009 14:15:54 [id number] LAB - [facility] 70 [facility] [place] Rat[place] 6 10/29/2008 07:04:44 10/29/2008 07:04:54 [id number] Eye Care, [facility] [address] [facility] [place] 6 12/04/2008 08:35:01 12/04/2008 14:08:24 [id number] LAB - [facility] 70 [place] [address] 02/05/2009 08:52:32 02/05/2009 08:52:40 [id number] [facility], OFFICE 70 [facility] [place] [place] [address] 08/08/2009 10:49:48 08/09/2009 11:28:19 [id number] [facility], OFFICE [address] [place] [address] 09/17/2009 10:57:01 09/19/2009 12:48:32 [id number] [facility], OFFICE [address] [place] [address] 10/01/2009 09:16:37 10/01/2009 14:51:25 [id number] , [facility], OFFICE [address] [facility] [place] [place] [address] 10/14/2009 10:06:27 10/14/2009 12:00:02 [id number] , [facility], OFFICE [address] [place] [address] 01/16/2010 07:41:39 01/16/2010 12:37:13 [id number] , [facility], OFFICE [address] [facility] [place] [place] [address] 08/11/2010 14:49:16 08/14/2010 13:29:10 [id number] [facility], OFFICE [address] [facility] [place] [place] [address] 09/04/2010 11:12:12 09/09/2010 08:33:12 [id number] [facility], OFFICE 70 [facility] [address] 01/14/2011 10:09:19 01/14/2011 11:23:50 [id number] [facility], OFFICE [address] [facility] [address] 04/10/2011 11:50:57 04/13/2011 13:24:56 [id number] [facility], OFFICE [address] [place] [address] 6 12/22/2011 07:59:48 12/22/2011 14:26:16 [id number] Radiology , [facility] 70 [place] [address] 12/22/2011 08:46:23 12/23/2011 11:15:39 [id number] Physical Therapy, [address] [address] 12/22/2011 12:29:23 12/23/2011 07:34:56 [id number] [facility], OFFICE [address] [place] [address] 01/05/2012 08:28:16 01/05/2012 09:29:20 [id number] Physical Therapy, [facility] 70 [place] [address] 6 01/05/2012 12:21:57 01/05/2012 13:09:59 [id number] Physical Therapy, [address] [address] 01/14/2012 14:16:39 01/15/2012 07:40:59 [id number] Domenic Collazo MD [facility], OFFICE [address] [place] [address] 01/19/2012 07:32:37 01/19/2012 09:15:36 [id number] Nutrition -[facility] 70 [place] [address] 02/10/2012 08:18:57 02/10/2012 09:08:04 [id number] Domenic Collazo MD , [facility], OFFICE [address] [place] [address] 6 07/28/2012 08:56:22 07/28/2012 09:46:12 [id number] Makayla Solares [facility], OFFICE [address] [place] [address] 10/05/2012 11:05:15 10/05/2012 15:55:29 [id number] Wallace Sweet MD , [facility], OFFICE [address] [place] [address] 6 06/13/2013 08:52:36 06/13/2013 09:57:34 Influenza vaccine needed [id number] 106 Mixed hyperlipidemia 925957962 continue to work on diet and exercise as discussed Uncontroll ed type 2 diabetes mellitus 268892684 Benign ess ential hypertension 7897192 continue to work on diet ,exercisea nd lowering salt intake as discussed [id number] HAFSA Law , [facility], OFFICE [address] [place] [address] 08/04/2013 15:13:51 08/07/2013 13:22:35 Impacted cerumen 88617688 irrigated in clinic no complicati ons. [id number] Gloria Murphy , [facility], OFFICE [address] [place] [address] 03/26/2014 16:14:43 03/26/2014 16:49:19 Benign essential hypertension 2687495 Mixed hyperlipidemia 289816099 Uncontroll ed type 2 diabetes mellitus 329475424 Renal diso rder due to type 2 diabetes mellitus 047020634 Benign par oxysmal positional vertigo [id number] Gloria Murphy [facility]ocr[facility], [address] [address] 04/04/2014 13:14:50 04/04/2014 15:08:28 Uncontrolled type 2 diabetes mellitus 298058511 -continue metformin 1g 2x/d -stop glyburide, change to glipizide 10mg 2x/d -start victoza 0.6 mg once daily for 1 week; then increase to 1.2 mg once daily Obesity 984276767 Essential hypertension 98030049 -lisinopri l Mixed hyperlipidemia 617571191 -lovastati n [id number] Taisha Johnston Physical Therapy, [address] [place] [address] 04/16/2014 16:18:50 04/17/2014 08:27:41 Benign paroxysmal positional vertigo 818439249 [id number] Taisha Johnston Physical Therapy, [address] [place] [address] 2014 12:01:49 2014 13:34:38 Benign paroxysmal positional vertigo 657008665 [id number] [facility] [address] [place] [address] 05/04/2014 13:01:46 05/04/2014 14:08:08 Uncontrolled type 2 diabetes mellitus 482829633 -continue metformin 1g 2x/d -continue glipizide 10mg 1 x/d, may decrease to 1/2 tab daily if less than 100mg/dL after taking this medicine and then stop if still less than 100mg/dL -continue victoza 1.2 mg subcut once daily, may then decrease and stop if regularly less than 100mg/dL Obesity 666558263 Essential hypertension 50000987 -lisinopri l Mixed hyperlipidemia 487901398 -lovastati n [id number] [facility], OFFICE [address] [place] [address] 06/06/2014 08:18:24 06/08/2014 08:28:39 Excessive cerumen in ear canal 029623712 recurrence [id number] Johanne Maribel , [facility], OFFICE [address] [place] [address] 08/13/2014 16:22:39 08/13/2014 17:04:10 Benign essential hypertension 2592688 Mixed hyperlipidemia 393593197 Type 2 sailaja betes mellitus without complication 994505261 [id number] JUANIS Farfan [facility], OFFICE [address] [place] [address] 11/14/2014 16:22:50 11/14/2014 16:48:58 Pain in right lower limb 543639701 upper leg, post fall on ice 2-3 months, not fulle recovered, will refer to PT for further evaluation , advised to use ice alternatin g w/heat x 20 m. X 3-4 x/day, Ibuprofen 200 mg 3 tabs TID for the next 7-10d, take w/food, F/U PRN, may need further evaluation w/Orthoped ist, agrees w/plan. [id number] Jumana Johnson MA , [facility], OFFICE [address] [place] [address] 12/10/2014 16:14:55 12/10/2014 16:41:53 Mixed hyperlipidemia 113193021 Benign ess ential hypertension 8146687 Type 2 sailaja betes mellitus without complication 271963963 Obesity 483851990 [id number] Mary Kate Weir MD , [facility], OFFICE [address] [place] [address] 03/07/2015 16:40:20 03/08/2015 11:19:32 Lifestyle 323867851 Impacted cerumen 41751492 bilateral impacted cerumen, rinsed out with resolution . [id number] Wallace Sweet MD , [facility], OFFICE [address] [place] [address] 07/08/2015 08:36:19 07/08/2015 09:15:01 Mixed hyperlipidemia 949194496 E78.2 Benign ess ential hypertension 6210448 I10 Uncontroll ed type 2 diabetes mellitus 272399739 E11.65 Acute situ ational disturbance 612465252 F43.20 Chest pain 32824055 R07. 9 [id number] Wallace Sweet MD , [facility], OFFICE [address] [place] [address] 10/07/2015 16:18:20 10/07/2015 16:49:45 Benign essential hypertension 4501151 I10 . Mixed hyperlipidemia 267 465086 E78.2 continue to work on diet and exercise as discussed Uncontroll ed type 2 diabetes mellitus 674653115 E11.65 Obesity 796423620 E66.9 Impotence 503090570 N52. 9 [id number] Sarika Rose RN, BSN, [facility] , [address] [address] 10/16/2015 15:17:49 10/16/2015 16:45:28 Uncontrolled type 2 diabetes mellitus 525932829 E11.65 [id number] Kaye Zhao, JUANIS-AIDA , [facility], OFFICE [address] [place] [address] 12/17/2015 10:18:10 12/18/2015 10:57:34 Impacted cerumen 79556484 H61.23 irrigated without issue in clinic. [id number] Wallace Sweet MD , [facility], OFFICE [address] [place] [address] 01/06/2016 15:21:50 01/06/2016 16:18:35 Benign essential hypertension 6473908 I10 Blood pressure at goal Mixed hyperlipidemia 267 655372 E78.2 continue to work on diet and exercise as discussed Uncontroll ed type 2 diabetes mellitus 481127547 E11.65 [id number] Sarika Rose RN, BSN, [facility] DM Education , [facility] [address] [facility] [place] [address] 01/15/2016 15:14:26 01/21/2016 12:10:03 Uncontrolled type 2 diabetes mellitus 514482102 E11.65 Met with Wilberto today for diabetes [...] of regular physical activity on blood sugars. [id number] Sarika Rose RN, BSN, [facility] DM Education , [facility] [address] [place] [address] 03/11/2016 14:57:26 03/11/2016 16:55:46 Uncontrolled type 2 diabetes mellitus 226508769 E11.65 Met with Wilberto today for follow [...] limiting cardiovasc ular risk. Other strategies for [facility] heart health. [id number] Wallace Sweet MD , [facility], OFFICE [address] [place] [address] 04/28/2016 08:47:08 04/28/2016 10:07:36 Adult health examination 709163371 Z00.00 see Risk Assessment and Lifestyle Change Counseling section above Counseling 420757489 Z71 .9 Mixed hyperlipidemia 267 755774 E78.2 continue to work on diet and exercise as discussed Uncontroll ed type 2 diabetes mellitus 038890104 E11.65 Impotence of organic origin 486487345 N52.9 Family his tory of malignant neoplasm of thyroid 934759468 Z80.8 [id number] Erna Villalpando, OD Eye Care, [facility] [address] [place] [address] 06/03/2016 14:09:37 06/03/2016 16:01:10 Type 2 diabetes mellitus without complication 612492042 E11.9 uncontroll ed, no diabetic retinopath y OU, pt ed, encouraged good BS control to maintain good eye health and vision. RTC 1 yr CEE or sooner with vision changes. [id number] Wallace Sweet MD , [facility], OFFICE [address] [place] [address] 08/04/2016 08:48:09 08/04/2016 09:18:49 Benign essential hypertension 2862354 I10 Mixed hyperlipidemia 267 657894 E78.2 Uncontroll ed type 2 diabetes mellitus 996891205 E11.65 Disorder o f nervous system due to type 2 diabetes mellitus 508629246 E11.40 Overweight 096596002 E66 .3 [id number] Sarika Rose RN, BSN, [facility] DM Education , [facility] [address] [place] [address] 09/01/2016 15:35:52 09/02/2016 09:08:30 Uncontrolled type 2 diabetes mellitus 963474516 E11.65 Met with Wilberto today for follow up of his diabetes education, kindly referred by Dr. Sweet. Wilberto has had diabetes for about 10 years now. Most recently, his A1C was 10.2% in [facility]. We reviewed how he has had an [...] limiting cardiovasc ular risk. Other strategies for [facility] heart health. [id number] John Luna MD FP, [facility], OFFICE [address] [place] [address] 09/19/2016 13:00:28 09/19/2016 15:23:49 Impacted cerumen 38780953 H61.23 Otalgia 02280256 H92.03 likley due to cerumen [id number] Mani Padron MD FP, [facility], OFFICE [address] [place] [address] 11/23/2016 11:29:28 11/24/2016 13:05:04 Acute bronchitis 05306481 J20.9 OOW for 2 days , tessalon perles, rest, liquids [id number] Wallace Sweet MD , [facility], OFFICE [address] [place] [address] 11/24/2016 08:39:51 11/24/2016 09:46:06 Benign essential hypertension 0331742 I10 Mixed hyperlipidemia 267 547974 E78.2 Uncontroll ed type 2 diabetes mellitus 214445757 E11.65 [id number] Sarika Rose RN, BSN, [facility] DM Education , [facility] [address] [place] [address] 01/05/2017 14:22:22 01/11/2017 14:06:39 Uncontrolled type 2 diabetes mellitus 300264646 E11.65 Met with Wilberto today for follow [...] more. He reports he is flying to [place] in 2 weeks and is nervous about [...] once we decide what to prescribe him. [id number] Wallace Sweet MD , [facility], OFFICE [address] [place] [address] 03/08/2017 16:58:56 03/08/2017 17:43:47 Benign essential hypertension 8063793 I10 Mixed hyperlipidemia 267 191899 E78.2 Uncontroll ed type 2 diabetes mellitus 124505814 E11.65 [id number] Sarika Rose RN, BSN, [facility] DM Education , [facility] [address] [place] [address] 03/16/2017 15:32:36 03/18/2017 08:48:45 Uncontrolled type 2 diabetes mellitus 787542991 E11.65 Met with Wilberto today for follow [...] testing often. He reports his trip to [place] went well during the summer when he was nervous he would eat too much food while he was away. He was at a wedding. He reports he tends to gain 15 lbs when he is in [place] and this was the first trip he did not gain any weight because he continued to be careful while he was away. He continues to takeMetfor min 1,000 mg BID, Glipizide 10 mg BID and Victoza 1.8 mg QD. He was encouraged to [facility] and start testing again. He was encouraged [...] of regular physical activity on blood sugars. [id number] Wallace Sweet MD , [facility], OFFICE [address] [place] [address] 07/13/2017 14:38:02 07/14/2017 08:06:17 Benign essential hypertension 1211688 I10 Mixed hyperlipidemia 267 332139 E78.2 Uncontroll ed type 2 diabetes mellitus 014239232 E11.65 [id number] JUANIS Farfan , [facility], OFFICE [address] [place] [address] 07/19/2017 09:59:16 07/19/2017 11:23:32 Screening for malignant neoplasm of colon 886512968 Z12.11 Referral for a DIRECT booked colonoscop y. This patient is a healthy ASA Class 1 or 2 patient (only mild systemic disease), or a STABLE, well controlled insulin dependent diabetic. They do not have serious cardiac disease ie CT/angiopl asty within 1 year, symptomati c CHF; renal failure with CKD 4 or 5; take Coumadin, Plavix, Aggrenox, etc. Acholic stool 61404486 R 19.5 Abnormal colored elif, labs & US ordered as written below, further treatment pending results. Impacted cerumen 6305532 6 H61.23 Both ears successful ly cleared of cerumen. Advised to use Debrox gtts. to keep ears patent. [id number] Lauren Khan NP , [facility], OFFICE [address] [place] [address] 09/27/2017 11:53:22 09/28/2017 09:35:28 Acute bronchitis 26129812 J20.9 Reassured. Lungs completely clear. Enc force fluids, steam inhalation prn, adequate rest. OK to continue otc cold/cough meds prn for symptom management . F/u here if not gradually improving, symptoms worsening, especially if develops fevers or increased SOB. Codeine cough syrup prn primarily for night time use. Warned can cause drowsiness . [id number] Tata Silva PA-C , [facility], OFFICE [address] [place] [address] 10/01/2017 14:36:18 10/01/2017 16:03:25 Acute low back pain 952076967 M54.5 09/25 came out with cold/bronc hitis [...] alternate hot/cold packs. follow up 4-5 days. [id number] John Luna MD , [facility], OFFICE [address] [place] [address] 11/13/2017 09:44:36 11/13/2017 11:25:52 Dysfunction of eustachian tube 77933243 H69.91 supportive care f/u if not improved in 2-3 weks [id number] Lauren Khan NP , [facility], OFFICE [address] [place] [address] 01/07/2018 14:46:25 01/10/2018 08:54:41 Hearing loss 71902457 H91.91 Impacted cerumen 0302253 6 H61.23 Nurse in as above. TM's [...] phone next week. Consider ENT/audiol ogy referral. [id number] Wallace Sweet MD , [facility], OFFICE [address] [place] [address] 04/19/2018 13:34:53 04/19/2018 14:18:10 Benign essential hypertension 3536446 I10 Mixed hyperlipidemia 267 432206 E78.2 Uncontroll ed type 2 diabetes mellitus 387471638 E11.65 Hearing loss 20779603 H9 1.91 Anxiety 68087425 F41.9 [id number] Sarika Rose, RN, BSN, [facility] DM Education , [facility] [address] [place] [address] 06/27/2018 08:42:53 07/04/2018 09:48:45 Uncontrolled type 2 diabetes mellitus 927889905 E11.65 Met with Wilberto clark for follow [...] of regular physical activity on blood sugars. [id number] Sarika Rose RN, BSN, [facility] DM Education , [facility] [address] [place] [address] 08/02/2018 07:50:46 08/02/2018 11:32:49 Uncontrolled type 2 diabetes mellitus 065613182 E11.65 Met with Wilberto clark for follow [...] Other strategies for maintainin g heart health. [id number] Erna Villalpanod, [facility], [facility] [address] [place] [address] 08/02/2018 09:03:25 08/02/2018 15:56:51 Type 2 diabetes mellitus without complication 683866177 E11.9 uncontroll ed, no diabetic retinopath y OU, pt ed, encouraged good BS control to maintain good eye health and vision. RTC 1 yr CEE or sooner with vision changes. [id number] POORNIMA Willis , [facility], OFFICE [address] [place] [address] 10/05/2018 13:03:14 10/06/2018 08:27:14 Uncontrolled type 2 diabetes mellitus 925758425 E11.65 Pt to do labs, f/u w/ PCP in the next month Active or passive immunization 911093715 Z23 Pt declined TD for today despite knowing the risk of disease and Mixed hyperlipidemia 267 014124 E78.2 Pt to have labs done and schedule w/ PCP within the next month- discussed goal is LDL < 100 Impacted cerumen 1106242 6 H61.23 Bilateral impacted cerumen- ear lavage done Essential hypertension 31473802 I10 Pt to have labs done and schedule w/ PCP within the next month Neuropathy due to diabetes mellitus 362160750 E11.40 pt states- chronic- reviewed improved control of BS's will decrease symptoms. [id number] Wallace Sweet MD FP, [facility], OFFICE [address] [place] [address] 03/30/2019 08:30:29 03/30/2019 09:12:31 Mixed hyperlipidemia 561585713 E78.2 Active or passive immunization 624248175 Z23 Benign ess ential hypertension 4380832 I10 Neuropathy due to diabetes mellitus 958632220 E11.40 Uncontroll ed type 2 diabetes mellitus 114392659 E11.65 [id number] Sarika Rose RN, BSN, [facility] , [address] [address] 05/04/2019 08:44:36 05/05/2019 12:08:07 Uncontrolled type 2 diabetes mellitus 423625340 E11.65 Met with Wilberto today for follow [...] limiting cardiovasc ular risk. Other strategies for [facility] heart health. [id number] Gloria Leonard MD , [facility], OFF[address] [place] [address] 05/23/2019 10:04:58 05/23/2019 15:19:11 Active or passive immunization 724189198 Z23 Asymmetric al sensorineural hearing loss 037149110 H90.5 pt will call for appt- printed the referral from Dr Sweet earlier this year so he can callhe never followed updoes not feel sx have changed Impacted c erumen of bilateral ears 0573765488 050662 H61.23 irrigation todaycompl etely cleared after several attempts [id number] John Luna MD , [facility], OFFICE [address] [place] [address] 07/06/2019 08:16:55 07/06/2019 13:42:42 Acute upper respiratory infection 45691053 J06.9 Educated patient that URI is a [...] or failure to resolve in 2-4 weeks. [id number] Sarika Rose RN, BSN, [facility] DM Education , [address] [address] 07/12/2019 13:14:32 07/17/2019 11:36:40 Uncontrolled type 2 diabetes mellitus 133949102 E11.65 Met with Wilberto and his today [...] is progressiv e and medication s exchange floor manager time (which includes insulin). Monitoring : Appropriat e times to test blood sugar and target blood sugars. Physical Activity : Introducti on to its importance . Effects of regular physical activity on blood sugars. Chronic Complicati ons: Introducti on to long-term effects, Importance of ABCs (A1c, Blood pressure and Cholestero l control) in limiting cardiovasc ular risk. Other strategies for [facility]. Reviewed the benefits of insulin and how he will need a long acting insulin before we start him on meal time insulin. [id number] Sarika Rose RN, BSN, [facility] DM Education , [facility] [address] [place] [address] 08/23/2019 12:54:55 08/23/2019 15:28:53 Uncontrolled type 2 diabetes mellitus 190102116 E11.65 Met with Wilberto and his today for diabetes education, kindly referred by Dr. Sweet.-He has had diabetes for about 10 years now.-Just arrived last week from [place]. No fever, no cough. -Last A1C was [...] 2 days). 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 He is working 13 [...] is progressiv e and medication s exchange floor manager time (which includes insulin). Monitoring : Appropriat e times to test blood sugar and target blood sugars.Chr onic Complicati ons: Introducti on to long-term effects, Importance of ABCs (A1c, Blood pressure and Cholestero l control) in limiting cardiovasc ular risk. Other [facility]. [id number] Montserrat Anand PA-C , [facility], OFFICE [address] [place] [address] 08/24/2019 10:34:06 08/24/2019 17:49:12 Rib pain 368907538 R07.81 s/p fall. Advised compressio n brace and ibuprofen. RTC for worsening pain. [id number] Sarika Rose RN, BSN, [facility] DM Education , [facility] [address] [place] [address] 10/19/2019 09:06:19 10/20/2019 09:04:53 Uncontrolled type 2 diabetes mellitus 781478487 E11.65 -Virtual Appt via [email or web address] due to COVID-19 pandemic.- Kindly referred by [...] limiting cardiovasc ular risk. Other strategies for [facility]. Long acting insulin such as Lantus or Basaglar and the benefits for his blood sugars. [id number] Sarika Rose RN, BSN, [facility] DM Education , [facility] [address] [place] [address] 11/30/2019 10:15:19 12/01/2019 09:18:58 Uncontrolled type 2 diabetes mellitus 404011989 E11.65 -Virtual Appt via phone due to [...] that the provider location is not at [facility] Patient location: home During the visit the patient? s medical history and medical record were reviewed. The patient was notified to call our office for worsening or urgent symptoms. [id number] Wallace Sweet MD , [facility], OFF[address] [place] [address] 03/22/2020 10:46:30 03/25/2020 09:35:39 Mixed hyperlipidemia 200652783 E78.2 Essential hypertension 87674597 I10 Uncontroll ed type 2 diabetes mellitus 211833137 E11.65 [id number] LAAN Marcus, [facility], [address] [place] [address] 06/13/2020 10:08:22 06/17/2020 10:27:30 Muscle pain 29405026 M79.10 advised ample rest and hydration and gentle movement. RTC for worsening/ persisting sx. [id number] ALAN Marcus, [facility], [address] [place] [address] 06/25/2020 14:01:39 06/26/2020 13:07:05 COVID-19 066146512 U07.1 Right sided headache lingering. No red flags. Advised ample rest, hydration , OTC migrelief. F/U in 1 week or sooner for worsening sx. [id number] ALAN Marcus, [facility], [address] [place] [address] 07/02/2020 11:31:22 07/03/2020 14:29:04 SARS-CoV-2 879134225 U07.1 MEDINA has resolved. Asymptomat ic. Back at work. RTC for concerning sx. [id number] Sarika Rose RN, BSN, [facility] DM Education , [address] [address] 08/22/2020 09:04:35 08/22/2020 10:47:49 Uncontrolled type 2 diabetes mellitus 425509593 E11.65 -Virtual Appt via phone due to COVID-19 pandemic. He could not hear the provider when we tried [employer]. -Kindly referred by Dr. Sweet for [...] 180 mg/dl. -He watched on Youtube that intermission coordinator use of Metformin causes B12 deficiency , [...] doing it correctly when he started it. [id number] Wallace Sweet MD , [facility], [address] [place] [address] 12/30/2020 10:35:47 12/30/2020 11:37:27 Mixed hyperlipidemia 739414446 E78.2 Essential hypertension 54307887 I10 Neuropathy due to diabetes mellitus 683402110 E11.40 [id number] Sarika Rose RN, BSN, [facility] DM Education , [facility] [address] [place] [address] 01/28/2021 08:11:07 01/31/2021 15:37:06 Uncontrolled type 2 diabetes mellitus [id number] E11.65 -Virtual Appt via [employer] due to COVID-19 pandemic. -Kindly referred by [...] his glucose more often. Concerned about his senior care affects of diabetes, as he has been elevated with high A1C for many years. He likely needs short acting insulin with meals. Will discuss with Dr. Sweet about starting Humalog or Novolog. Did not get a chance to discuss this with Wilberto today and will discuss this at our next visit. [id number] Wallace Sweet MD , [facility], [address] [place] [address] 04/03/2021 08:49:27 04/03/2021 09:15:23 Essential hypertension 27143388 I10 Mixed hyperlipidemia 267 824798 E78.2 Uncontroll ed type 2 diabetes mellitus 775764083 E11.65 [id number] Sarika Rose, RN, BSN, [facility] DM Education , [facility] [address] [place] [address] 04/08/2021 09:03:28 04/10/2021 12:59:38 Uncontrolled type 2 diabetes mellitus [id number] E11.65 -Virtual Appt via [employer] due to COVID-19 pandemic. -Kindly referred by [...] it. He bought a toe guard from [employer]. At one point, he had to get custom made, from [employer] (about 10 years ago). As soon as [...] down blood sugars. FU in 1 month. 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 refer to retina. 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 No DR OS. No CSME OU. Presbyopia 77673142 H52. 4 ok to cont with OTC readers. [id number] Sarika Rose, RN, BSN, [facility] DM Education , [facility] [address] [place] [address] 07/14/2021 09:09:17 07/15/2021 09:52:12 Uncontrolled type 2 diabetes mellitus 524210655 E11.65 -Virtual Appt via over the phone due to COVID-19 pandemic. Pt. tried connecting to [employer], however, it would not connect (he has [...] wax in the past. Tried to call [facility] to have it removed, however, was told that [facility] is no longer doing this. About [...] in the past. Wants to see a rad tech for it. There is a referral for a rad tech from 04/03, encouraged he call to schedule an appt. -Asked about sensors, and discussed how he does not currently qualify for a sensor based on Medicare/[employer] edicaid strict guidelines with sensors. However, his [...] this month. Schedule an appt with the rad tech . Call insurance to find out if [...] requiremen ts to go on a sensor. [id number] Wilberto Ivan DPM Podiatry, [facility] [address] [place] [address] 08/05/2021 10:29:51 08/05/2021 11:30:28 Disorder of nervous system due to type 2 diabetes mellitus 917980163 E11.49 Pronation of foot 538651 03 M21.6X9 [id number] Sarika Rose, RN, BSN, [facility] DM Education , [facility] [address] [place] [address] 09/16/2021 10:02:55 09/19/2021 11:05:31 Uncontrolled type 2 diabetes mellitus [id number] E11.65 -Virtual Appt via over [employer] for diabetes education. -Kindly referred by Dr. [...] guard for his large calluses. Saw a rad tech and was told it was due to [...] until fasting glucose are below 130 mg/dl. [id number] , [facility], [address] [place] [address] 12/01/2021 10:39:30 12/01/2021 11:12:28 Adult health examination 065008259 Z00.00 see Risk Assessment and Lifestyle Change Counseling section above Counseling 419536203 Z71 .9 including cardivascu lar risk reduction counseling Depression screening 171 577654 Z13.31 depression screening tool administer ed, entered into emr, scored and discussed, time greater than 7.5 minutes Screening for alcohol abuse 286927255 Z13.39 Essential hypertension 64152904 I10 Mixed hyperlipidemia 267 197922 E78.2 Active or passive immunization 075000415 Z23 Uncontroll ed type 2 diabetes mellitus 423039815 E11.65 Impacted c erumen of bilateral ears 1240562165 889395 H61.23 [id number] Sarika Rose, RN, BSN, [facility] DM Education , [facility] [address] [place] [address] 12/24/2021 09:05:34 01/05/2022 16:28:55 Uncontrolled type 2 diabetes mellitus 349549029 E11.65 -Virtual Appt via over [employer] today for diabetes education. -Kindly referred by [...] have some numbness and tingling, saw a rad tech . He gets calluses on his big toe. He has flat feet and this causes the calluses. He puts a toe guard on them when walking.-Makayla jose exam was a year ago. He went to [facility] eye doctor. He was told that [...] said that Dexcom is not covered at [employer], however, it is worth calling insurance to find out if it is covered with a DME and how much is the co-pay. The Freestyle Pushpa sensor is covered with [employer], however the co-pay is $100 per month. Pt.'s blood sugars are improved since he is watching his diet, however, his A1C was 12% in November and has been above 9-10% for years therefore, he is really in need of short acting insulin to avoid senior care complicati ons. Sent a message to Dr. Sweet about starting a small dose of Humalog or Novolog 5 units with each meal. Pt. does not currently have senior care complicati ons. Reviewed how insulin puts him [...] and the preferred DME is [facility]. 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 mild NPDR OU, trace ME OS. new finding. PED resolved OS. refer to retina in 1-2 weeks. [id number] Sarika Rose RN, BSN, [facility] DM Education , [address] [address] 01/21/2022 09:03:01 01/21/2022 12:26:35 Uncontrolled type 2 diabetes mellitus 272356884 E11.65 -Virtual Appt via over [employer] for diabetes education. -Kindly referred by Dr. [...] connect his Freestyle Pushpa 2 sensor to [facility]'s [employer] account today. Download of sensor reveals:-A verage [...] prevent insulin from stacking. -Now on the [employer] Pushpa 2 sensor and had trouble with [...] he has eaten something. FU in February. [id number] Sarika Rose, RN, BSN, [facility] DM Education , [address] [address] 02/18/2022 09:43:48 02/18/2022 10:30:23 Uncontrolled type 2 diabetes mellitus 107344133 E11.65 -Virtual Appt via over the phone [...] burp and he had diarrhea. -Connected to [employer] and able to review his download today: [...] appt in person. FU in 1 month. [id number] Sarika Rose RN, BSN, [facility] DM Education , [facility] [address] [place] [address] 04/02/2022 10:05:34 04/02/2022 13:10:29 Uncontrolled type 2 diabetes mellitus 275142082 E11.65 -Virtual Appt via [employer] today. -Kindly referred by Dr. Sweet. -He [...] mg/dl.Carb ohydrate Ratio: 5 grams -Connected to [employer] and able to review his download today: [...] in 1 month to review sensor download. [id number] Mary Kate Weir MD , [facility], [address] [place] [address] 04/06/2022 10:40:31 04/06/2022 16:07:56 Tinnitus of left ear 2571963655 106 H93.12 Temporoman dibular joint disorder 36860703 M26.609 you can use both ibuprofen and [...] the area hurts more 2 hours after. [id number] , [facility], [address] [place] [address] 06/18/2022 13:48:25 06/18/2022 14:18:13 Uncontrolled type 2 diabetes mellitus 081149045 E11.65 stressed importance of controllin g sugars or wounds will not healat risk of losing toes if we arent aggressive check a1c today, will call pt with results and possible med adjustment Diabetic foot ulcer 1970 54366 E13.621 start abx, refer to wound caresee above [id number] Sheri Mata MD , [facility], [address] [place] [address] 07/22/2022 14:28:48 07/22/2022 15:55:20 Uncontrolled type 2 diabetes mellitus 073458085 E11.65 stressed importance of controllin g sugars or wounds will not healat risk of losing toes if we arent aggressive last a1c 10.7contin ue meds, pt aggressive ly managingre peat a1c september, see me afterdior grace message sent with info on nutrition consult name and number Diabetic foot ulcer 3710 75020 E13.621 slowly improvemen tcontinue with wound care [id number] Sheri Mata MD FP, [facility], [address] [place] [address] 08/10/2022 07:40:22 08/10/2022 08:42:21 Uncontrolled type 2 diabetes mellitus 330803216 E11.65 stressed importance of controllin g sugars [...] per month Neuropathy due to diabetes mellitus 101637689 E11.40 as above Diabetic foot ulcer 3710 52060 E13.621 slowly improvemen tcontinue with wound careMRI pending to rule out osteomyeli tis [id number] Sheri Mata MD FP, [facility], [address] [place] [address] 09/21/2022 14:38:30 09/21/2022 16:20:39 Essential hypertension 29567928 I10 well controlled on med Uncontroll ed type 2 diabetes mellitus 049044833 E11.65 a1c down to 7.9!contin ue diet, exercisewi ll back down lantus to avoid lows overnightc ontinue humalogrep eat labs, see me 3 monthsi will research berberine for safety Diabetic foot ulcer 3710 83566 E13.621 slowly improvemen tcontinue with wound care Health Concerns Section Related Observation LastModified by Organization Detai ls LastModified Time None Recorded Concern Status LastModified by Organization Details LastModified Time None Recorded Advance Directives Directive N: Payers Encounter Date Sequence Insurance Name Policy Number Policy Orozco Covered Member ID Orozco Member ID Guarantor Name 04/06/2022 1 [facility] ([facility] [id number] Wilberto Diegoand [id number] Wilberto Aquino [facility] 06/18/2022 1 [facility] ([facility] [place] [id number] Wilberto Diegoand [id number] Wilberto Aquino Zoraida 07/22/2022 1 [facility] [id number] Wilberto Aquino [facility] [id number] Wilberto Aquino [facility] 08/10/2022 1 [facility]) [id number] Wilberto Aquino [facility] [id number] Wilberto Aquino [facility] 09/21/2022 1 [facility]) [id number] Wilberto Aquino [facility] [id number] Wilberto Aquino [facility] Notes Date Note Type Note Provider Name and Address Organization Details Recorded Time 04/06/2022 text/html Pt reports L artur e ear and jaw pain ongoing about 2 wks, feels like he can hear constant humming in L ear, Denies drainage or swelling. Pain is worse when he opens his mouth. Mary Kate Weir MD [address] [place] [address], [phone], [facility] 04/06/2022 11:43:41 06/18/2022 text/html Foot issues. Big toe on both feet. Calluses. Blood blisters. presents to discuss feet. Has to wear steel toed shoes at work and now toes have painful blisters. Not checkin sugars. Taking meds as listed Sheri Mata MD [address] [place] [address], [phone], [facility] 06/18/2022 14:22:38 07/22/2022 text/html Patient presents to the office today for f/u on sore on foot. for followup foot ulcer and DM. Sugars mostly under 150. Taking meds as listed. WOrking hard on controlling.Seeing wound care, foot healing slowlyHasnt heard about nutrition consult Sheri Mata MD [address] [place] [address], [phone], [facility] 07/22/2022 14:59:41 08/10/2022 text/html Patient presents to [...] 3-4 times per day Sheri Mata MD [address] [place] [address], [phone], [facility] 08/10/2022 08:23:38 09/21/2022 text/html for followup DM. Working very hard. Taking 50 lantus HS and 30 humalog with meals. Has been having lows in middle of night.Seeing wound care for foot. Had a setback, Was casted and caused infection, on two abx nowread about berberine, herb used in [place] for DM, wonders if can tryhad colon last week, normal Sheri Mata MD [address] [place], [address], [facility] 09/21/2022 15:30:10
== END 2024-09-28 11:51 | disposition home or self-care (01) ==
LOC: HO.HCS 11:05
PROVIDERS: PCP Internal Medicine; Visit Provider Internal Medicine
DX: I25.10 Atherosclerotic heart disease of native coronary artery without angina pectoris (principal); E11.65 Type 2 diabetes mellitus with hyperglycemia; I10 Essential (primary) hypertension; E78.00 Pure hypercholesterolemia, unspecified
CPT/HCPCS: 99214

== ENCOUNTER 2024-11-13 09:48 | Outpatient (AMB) | payer OTHER, SELFPAY ==
[2024-11-13 09:59] VITALS: BP 110/62; PULSE 59; O2SAT 97; BMI 29.6
--- NOTE | 2024-11-13 09:59 | MHC.PC.OV ---
Vital Signs 11/13/24 09:59 Height 5 ft 10 in Weight 206 lb BMI 29.6 BP 110/62 Blood Pressure Location Rt brachial Position Sitting Pulse 59 Pulse Source Pulse Oximeter Pulse Oximetry (%) 97 Oxygen Delivery Method Room Air Intake Visit Reasons: 3 month follow up Allergies semaglutide [From Ozempic] Adverse Reaction (Intermediate, Verified 11/13/24 10:00) burping Medication List - Last Reconciled 11/13/24 by Seth Boyer MD aspirin (Adult Aspirin Regimen) 81 mg PO DAILY atorvastatin 80 mg PO QPM [Diabetic shoes As directed] empagliflozin (Jardiance) 25 mg PO DAILY flash glucose sensor (FreeStyle Pushpa 2 Sensor kit) USE DIRECTED TO MONITOR BLOOD GLUCOSE DAILY. CHANGE SENSOR EVERY 14 DAYS insulin glargine (Lantus Solostar U-100 Insulin) 40 units (0.4 mL) subcut QPM lisinopril 5 mg PO DAILY metformin 1,000 mg PO BID metoprolol succinate ER (Toprol XL) 25 mg PO BID multivitamin 1 tab PO DAILY nitroglycerin 0.4 mg sublingual Q5M PRN Tobacco use date assessed: 08/07/24 Dental Screening Dental Screen Date: 08/07/24 [facility] Medical History (Updated 11/13/24 @ 10:27 by Seth Boyer MD) Obesity (BMI 30-39.9) Blood pressure elevated without history of HTN Finger stiffness Trigger finger, left middle finger Trigger finger, left index finger Chest discomfort Trigger finger, right index finger Trigger finger, right middle finger Abnormal stress ECG with treadmill Diarrhea Asthma Surgical History Hx of cardiac cath Hx of tonsillectomy Aftercare following bilateral shoulder joint replacement surgery History of appendectomy Family History Mother Emphysema lung Father Heart failure Brother Substance use disorder Mental health disorder Brother No problems noted. Brother No problems noted. Sister No problems noted. Daughter No problems noted. Son No problems noted. Son No problems noted. Social History Housing: House Alcohol intake: current Alcohol intake frequency: a few times a week Alcohol type: beer Patient Tobacco Use Status: Never used Tobacco Tobacco use type: Cigarette e-Cigarette/Vaping Use: Never Used Second Hand Smoke Exposure: No service: No Current occupational status: employed Cognitive needs: No Hearing needs: No Vision needs: Yes (Glasses) Questionnaire PHQ-9 Over the last 2 weeks, how often have you been bothered by any of the following problems? 1. Little interest or pleasure in doing things: not at all 2. Feeling down, depressed, or hopeless: not at all 3. Trouble falling or staying asleep, or sleeping too much: not at all 4. Feeling tired or having little energy: not at all 5. Poor appetite or overeating: not at all 6. Feeling bad about yourself - or that you are a failure or have let yourself or your family down: not at all 7. Trouble concentrating on things, such as reading the newspaper or watching television: not at all 8. Moving or speaking so slowly that other people could have noticed. Or the opposite - being so fidgety or restless that you have been moving around a lot more than usual: not at all 9. Thoughts that you would be better off or of hurting yourself in some way: not at all Total score: 0 Depression Screening Interpretation: Negative Depression Screening Done: Yes Source: Developed by Drs. Yovani Collazo, Ese Baxter, Deion Estrella and colleagues, with an educational valeriy from [employer]. Thrive Questionnaire Date Thrive assessed: 08/07/24 I am a: Patient What is your living situation today?: I have a steady place to live Within the past 12 months, did the food you bought not last and you didn't have the money to get more?: Never true Within the past 12 months, did you worry whether your food would run out before you got money to buy more?: Never true Do you have trouble paying for medicines?: No Do you have trouble getting transportation to medical appointments?: No Do you have trouble paying your heating and electricity bill?: No Do you have trouble taking care of your child, family member or friend?: No Do you have trouble with day-to-day activities such as bathing, preparing meals, shopping, managing finances, etc.?: No Are you currently unemployed and looking for a job?: No Are you interested in more education?: No Please select the resources that you would like help with: None Currently or been in a relationship where the following occur: No concerns reported THRIVE Score: 0 AUDIT C Alcohol Use Questionnaire (AUDIT-C) 1. How often do you have a drink containing alcohol?: 2-4 times a month 2. How many drinks containing alcohol do you have on a typical day when you are drinking?: 1 or 2 3. How often do you have six or more drinks on one occasion?: Never Total Score: 2 ELIU-7 AMB Questionnaire ELIU-7 Date ELIU - 7 assessed: 08/07/24 Feeling nervous, anxious, or on edge: 0 = Not at all Not being able to stop or control worryin = Not at all Worrying too much about different things: 0 = Not at all Trouble relaxin = Not at all Being so restless that it is hard to sit still: 0 = Not at all Becoming easily annoyed or irritable: 0 = Not at all Feeling afraid as if something awful might happen: 0 = Not at all Total ELIU-7 score (0-4 normal; 5-9 mild; 10-14 moderate; 15-21 severe): 0 Source: Developed by Drs. Yovani Collazo, Ese Baxter, Deion Estrella and colleagues, with an educational valeriy from [employer]. Physical exam (Primary Care) Vital Signs: Last Vital Signs Pulse 59 11/13/24 09:59 BP 110/62 11/13/24 09:59 Pulse Ox 97 11/13/24 09:59 Oxygen Delivery Method Room Air 11/13/24 09:59 BMI result Body Mass Index 29.6 Tobacco/Smoking Status: Tobacco use Status Tobacco use date assessed 08/07/24 11/13/24 10:00 Patient Tobacco Use Status Never used Tobacco 11/13/24 10:00 Tobacco use type Cigarette 11/13/24 10:00 e-Cigarette/Vaping Use Never Used 11/13/24 10:00 PHQ-9: PHQ-9 Score PHQ-9: Total score 0 11/13/24 10:22 Depression Screening Interpretation: Negative Thrive Assessment: Date of Thrive Assessment Date Thrive assessed 08/07/24 11/13/24 10:00 Currently or been in a relationship where the following occur: No concerns reported Const General: alert; No acute distress Eyes Conjunctivae: conjunctivae normal Resp Auscultation: clear to auscultation bilaterally Cardio Rate: regular rate Rhythm: regular rhythm GI Inspection: Yes normal to inspection Extrem General: Yes normal to inspection and No edema Results AMB Hemoglobin A1c AMB Hemoglobin A1c 6.5 % Last Edit by Leidy Rogers CMA on 11/13/24 10:23 Coding Level of Care Code Est Pt Level 4 (30108) Complex EM visit Add On G2211 Diagnoses Atherosclerotic cardiovascular disease I25.10 Primary hypertension I10 Type 2 diabetes mellitus with hyperglycemia E11.65 Hypercholesterolemia E78.00 Ulcer of left great toe due to diabetes mellitus E11.621; L97.529 Assessment & Plan Assessment & Plan (1) Atherosclerotic cardiovascular disease: Code(s): I25.10 - Atherosclerotic heart disease of [place] coronary artery without angina pectoris Category: Medical Plan: Control the cholesterol, weight, blood pressure, diabetes on aspirin 81 mg once a day (2) Primary hypertension: Code(s): I10 - Essential (primary) hypertension Category: Medical Plan: Continue with blood pressure medication. Decrease salt intake and exercise continuing with lisinopril 5 mg once a day metoprolol 25 mg twice a day (3) Type 2 diabetes mellitus with hyperglycemia: Comment: [facility] Code(s): E11.65 - Type 2 diabetes mellitus with hyperglycemia Category: Medical Plan: Decrease the amount of carbohydrate intake, pasta, bread, rice and potatoes are all sugar and that is aside from all the sweet stuff, remember that fruits are good but they are Sweet also. Hemoglobin A1c goal of less than 6.5. Patient is on metformin 1000 mg twice a day Lantus at 40 units once a day Jardiance 25 mg once a day (4) Hypercholesterolemia: Code(s): E78.00 - Pure hypercholesterolemia, unspecified Category: Medical Plan: Avoid fried foods, chicken skin, eggs, butter margarine, pastries and meat. Be it pork or beef they have a lot of cholesterol LDL goal of less than 70 and triglyceride of less than 150. On atorvastatin 80 mg once a day (5) Ulcer of left great toe due to diabetes mellitus: Code(s): E11.621 - Type 2 diabetes mellitus with foot ulcer; L97.529 - Non-pressure chronic ulcer of other part of left foot with unspecified severity Category: Medical Plan: Continue to monitor Plan History of Present Illness The patient is a 59-year-old male presenting with a history of chronic conditions including diabetes mellitus, hypercholesterolemia, and hypertension. The patient reported a 13-pound weight loss and has been noted to have a venous ulcer on the big toe. He experiences mild retinopathy of the left eye and has a history of gallstones. Earlier this year, he underwent diagnostic testing which included a stress test and EKG indicative of ischemia. Despite normal myocardial perfusion imaging, a subsequent CTA confirmed triple vessel disease, leading to a coronary artery bypass graft surgery. The CABG involved multiple grafting techniques with no significant calcification in the ascending aorta. Recently, a carotid ultrasound indicated no significant carotid artery disease. His lab work has shown mild anemia and an elevated hemoglobin A1c. He remains on a comprehensive regimen including antihypertensive and cholesterol-lowering medications. His diabetes regimen consists of metformin, Lantus, and Jardiance. The patient's lipids are actively managed with atorvastatin aiming for a targeted LDL goal. Health Maintenance - Continued monitoring of hemoglobin A1c with a goal of less than 6.5%. - Lipid management targeting an LDL level below 70 mg/dL and triglycerides less than 150 mg/dL. - Regular follow-ups for blood pressure monitoring, targeting optimal control. - Evaluation of complete blood count periodically due to mild anemia. - Coronary artery disease management, including the continuation of aspirin therapy. - Recommended follow-up carotid ultrasound based on recent carotid artery evaluation showing no significant disease. Social History Review of Systems - Cardiovascular: Reports ischemic symptoms per stress test and EKG; Reports having undergone coronary artery bypass grafting. - Endocrine: Reports diabetes mellitus. Physical Exam Results - Labs: Mild anemia, hemoglobin A1c of 7.6 in September 2024, Creatinine of 0.72, GFR of 105. - Tests and Diagnostics: Stress test and EKG suggestive of ischemia; Myocardial perfusion imaging normal; CT angiography confirmed triple vessel disease; Carotid ultrasound showing no significant disease. Plan The patient will continue diabetes management with metformin, Lantus insulin, and Jardiance to achieve desired A1c levels. Hypercholesterolemia is managed with daily atorvastatin, aiming for an LDL below 70 mg/dL. Hypertension treatment includes lisinopril and metoprolol. Aspirin is prescribed for cardiovascular protection post-CABG, and recent surgical success includes no significant aortic calcification. Repeat blood lipids to monitor therapeutic goals. Carotid ultrasound findings denote no significant disease, and anemia will be monitored via regular CBCs. Patient was informed and verbally consented to the use of an ambient scribe for clinic note documentation during this visit. Discussion Notes During the visit, I discussed the patient's current management for diabetes, emphasizing the importance of achieving a hemoglobin A1c below 6.5% and continuing with current medication regimens. We addressed lipid management with a detailed plan to keep LDL cholesterol levels under 70 mg/dL. Cardiovascular risks and post-operative management following his recent coronary artery bypass graft were reviewed, underscoring the importance of daily aspirin. I explained the stable nature of his carotid artery post-ultrasound and the minimal risk demonstrated. We also reviewed the patient's anemia and the need for ongoing monitoring. Instructions for follow-up visits and laboratory assessments were provided, reinforcing the continuity of care and ensuring adherence to guidelines. Patient Instructions - Continue taking all prescribed medications as directed. - Monitor your blood sugar levels regularly. - Follow your prescribed dietary plan, focusing on low sugar and low fat intake. - Schedule lipid profile tests to monitor cholesterol levels periodically. - Maintain blood pressure logs and bring them to your next appointment. - Return to the clinic if you experience any new symptoms or worsening of your current condition. - Follow up in 3 months or sooner if recommended by your care team. Orders: Orders Complete Blood Count Auto Diff 3 Months E11.65 - Type 2 diabetes mellitus with hyperglycemia Creatinine Urine 3 Months E11. - Type 2 diabetes mellitus with hyperglycemia Vitamin B12 and Folate 3 Months E11.65 - Type 2 diabetes mellitus with hyperglycemia IRON PROFILE 3 Months E11.65 - Type 2 diabetes mellitus with hyperglycemia Reticulocyte Count 3 Months E11. - Type 2 diabetes mellitus with hyperglycemia Uric Acid 3 Months E11. - Type 2 diabetes mellitus with hyperglycemia AMB Hemoglobin A1c Today Z13.9 - Encounter for screening, unspecified Comprehensive Met. Panel 3 Months E11.65 - Type 2 diabetes mellitus with hyperglycemia Microalbumin, Random (w Creat) 3 Months E11.65 - Type 2 diabetes mellitus with hyperglycemia Free T4 (Free Thyroxine) 3 Months E11.65 - Type 2 diabetes mellitus with hyperglycemia Ferritin 3 Months E11.65 - Type 2 diabetes mellitus with hyperglycemia Thyroid Stimulating Hormone 3 Months E11.65 - Type 2 diabetes mellitus with hyperglycemia Prostate Specific Antigen Scr 3 Months E11.65 - Type 2 diabetes mellitus with hyperglycemia Lipid Panel 3 Months E11.65 - Type 2 diabetes mellitus with hyperglycemia, E78.00 - Pure hypercholesterolemia, unspecified Hemoglobin A1c 3 Months E11.65 - Type 2 diabetes mellitus with hyperglycemia UA CC w/rflx Micro + Cult 3 Months E11.65 - Type 2 diabetes mellitus with hyperglycemia, R30.0 - Dysuria Medications: Changed From metoprolol succinate ER (Toprol XL) Total 75mg daily. 25 mg PO BID . - Type 2 diabetes mellitus with hyperglycemia To metoprolol succinate ER (Toprol XL) 25 mg PO BID .65 - Type 2 diabetes mellitus with hyperglycemia
--- OUTSIDE RECORDS SUMMARY | 2024-11-13 10:35 | XMS_ITS | Continuity of Care Document ---
Author Organization [facility] ter Address [address] [place] [id number]- Care Team Providers Care Slitter And Rewinder Name Role Phone Po Seth [place] Primary Care Physician [phone] Encounter [facility] [place] Date(s): 10/12/24 - 11/11/[address] [address]- Attending Physician: Not on Staff, Attending MD Admitting Physician: Not on Staff, Admitting MD Referring Physician: Not on Staff, Referring MD Encounter Type: Pre-Outpt Allergies, Adverse Reactions, Alerts No Known Allergies Medications amiodarone 200 mg oral tablet 200 mg, 1, tablet, By Mouth, 2 times a day, # 60 tablet, Refills 0, Tot. Refills 0, Maintenance, 10/15/24 11:11:00 AM EDT, Route to Pharmacy Electronically, [facility], Partial fill upon patient request if the prescription is for a schedule II opioid drug., 180, cm, 10/15/24 8:46:00 EDT, Height, 99.5, kg, 10/09/24 9:24:00 EDT, Dry Weight Start Date: 10/15/24 Stop Date: 11/14/24 Status: Ordered Quantity: 60.0 Unit: tablet Repeat number: 1 aspirin 81 mg oral capsule 1 capsule = 81 mg, By Mouth, Daily, do not exceed 48 capsules in 24 hours, # 30 capsule, 0 Refills,Maintenance, 09/14/24 1:11:00 PM EDT, Capsule, Partial fill upon patient request if the prescription is for a schedule II opioid drug. Start Date: 09/14/24 Status: Ordered Quantity: 30.0 Unit: capsule Repeat number: 1 atorvastatin 80 mg oral tablet 1 tablet = 80 mg, By Mouth, Daily, # 90 tablet, 0 Refills, Maintenance, 09/14/24 1:14:00 PM EDT, Tablet, Partial fill upon patient request if the prescription is for a schedule II opioid drug. Start Date: 09/14/24 Status: Ordered Quantity: 90.0 Unit: tablet Repeat number: 1 Insulin Lispro KwikPen 100 units/mL injectable solution See Instructions, per sliding scale, 0 Refills, Maintenance, 10/09/24 9:18:00 AM EDT, Partial fill upon patient request if the prescription is for a schedule II opioid drug. Start Date: 10/09/24 Status: Ordered Repeat number: 1 Jardiance 25 mg oral tablet 1 tablet = 25 mg, By Mouth, Daily in AM, # 30 tablet, 0 Refills, Maintenance, 09/14/24 1:12:00 PM EDT, Tablet, Partial fill upon patient request if the prescription is for a schedule II opioid drug. Start Date: 09/14/24 Status: Ordered Quantity: 30.0 Unit: tablet Repeat number: 1 Lantus Solostar Pen 100 units/mL subcutaneous solution 38, 0 Refills, Maintenance, 10/09/24 9:17:00 AM EDT, Partial fill upon patient request if the prescription is for a schedule II opioid drug. Start Date: 10/09/24 Status: Ordered Repeat number: 1 lisinopril 5 mg oral tablet 5 mg, 1, tablet, By Mouth, Daily, # 30 tablet, Refills 0, Maintenance, 09/14/24 1:13:00 PM EDT, Partial fill upon patient request if the prescription is for a schedule II opioid drug. Start Date: 09/14/24 Status: Ordered Quantity: 30.0 Unit: tablet Repeat number: 1 Metformin = 1,000 mg, By Mouth, 2 times a day, 0 Refills, Maintenance, 09/14/24 1:11:00 PM EDT, Partial fill upon patient request if the prescription is for a schedule II opioid drug. Start Date: 09/14/24 Status: Ordered Repeat number: 1 metoprolol 25 mg oral tablet 25 mg, 1, tablet, By Mouth, 2 times a day, # 60 tablet, Refills 0, Tot. Refills 0, Maintenance, 10/15/24 11:10:00 AM EDT, Route to Pharmacy Electronically, [facility], Partial fill upon patient request if the prescription is for a schedule II opioid drug., 180, cm, 10/15/24 8:46:00 EDT,Height, 99.5, kg, 10/09/24 9:24:00 EDT, Dry Weight Start Date: 10/15/24 Status: Ordered Quantity: 60.0 Unit: tablet Repeat number: 1 Multivitamin 0 Refills, Maintenance, 09/14/24 1:15:00 PM EDT, Partial fill upon patient request if the prescription is for a schedule II opioid drug. Start Date: 09/14/24 Status: Ordered Repeat number: 1 Vashe Topical Solution 475 mL, Topically, Every 12 hours, 0 Refills, Maintenance, Solution Start Date: 10/15/24 Status: Ordered Repeat number: 1 Patient Care team information Care Team Personnel Name: Guerline Jacobs RN Position: S RN Supv Member Role: Primary Care Nurse Name: Seth Boyer MD Position: Reference Physician Member Role: PCP Address: [address] [place] [address] Telecom: Care Team Related Persons Name: FAINA BA Insurance Providers Guarantor name: [facility] Information #: 1 Payer: [employer] HMO Member Number: NA Policy Number: NA Group Number: NA
== END 2024-11-13 10:35 | disposition home or self-care (01) ==
LOC: HO.HMCH 09:49
PROVIDERS: PCP Internal Medicine; Visit Provider Internal Medicine
DX: E11.65 Type 2 diabetes mellitus with hyperglycemia (principal); E11.621 Type 2 diabetes mellitus with foot ulcer; L97.529 Non-pressure chronic ulcer of other part of left foot with unspecified severity; I25.10 Atherosclerotic heart disease of native coronary artery without angina pectoris; I10 Essential (primary) hypertension; E78.00 Pure hypercholesterolemia, unspecified

== ENCOUNTER → 2024-11-13 09:48 | Outpatient (BNVA) | payer OTHER, SELFPAY | PROVIDERS: PCP Internal Medicine; Visit Provider Internal Medicine | DX: I25.10 Atherosclerotic heart disease of native coronary artery without angina pectoris (principal); I10 Essential (primary) hypertension; E11.65 Type 2 diabetes mellitus with hyperglycemia; E78.00 Pure hypercholesterolemia, unspecified; R30.0 Dysuria; E11.621 Type 2 diabetes mellitus with foot ulcer; L97.529 Non-pressure chronic ulcer of other part of left foot with unspecified severity | CPT/HCPCS: 83036; 96127 ==

== ENCOUNTER 2024-11-15 12:15 | Outpatient (AMB) | payer OTHER, SELFPAY ==
[2024-11-15 12:45] VITALS: BP 118/68; PULSE 77; BMI 29.1
--- NOTE | 2024-11-15 12:45 | MHC.OFFVIS ---
Vital Signs 11/15/24 12:45 Height 5 ft 10 in Weight 202 lb 13.204 oz BMI 29.1 BP 118/68 Blood Pressure Location Lt brachial Position Sitting Pulse 77 Pulse Source Pulse Oximeter Intake Visit Reasons: [facility] [place] Follow-Cabbage Allergies semaglutide [From Ozempic] Adverse Reaction (Intermediate, Verified 11/13/24 10:00) burping Medication List - Last Reconciled 11/15/24 by Santi George MD aspirin (Adult Aspirin Regimen) 81 mg PO DAILY atorvastatin 80 mg PO QPM [Diabetic shoes As directed] empagliflozin (Jardiance) 25 mg PO DAILY flash glucose sensor (AngstroStyle Pushpa 2 Sensor kit) USE DIRECTED TO MONITOR BLOOD GLUCOSE DAILY. CHANGE SENSOR EVERY 14 DAYS insulin glargine (Lantus Solostar U-100 Insulin) 40 units (0.4 mL) subcut QPM lisinopril 5 mg PO DAILY metformin 1,000 mg PO BID metoprolol succinate ER (Toprol XL) 25 mg PO ONCE multivitamin 1 tab PO DAILY nitroglycerin 0.4 mg sublingual Q5M PRN HPI Comments Details: Wilberto returns for follow-up regarding coronary artery disease. He was seen regarding an abnormal stress test. Multiple cardiovascular risk factors including diabetes, hypertension, dyslipidemia. Noninvasive workup with exercise perfusion imaging led to coronary CTA and then a diagnostic catheterization. That revealed multivessel coronary disease. Eventually, had coronary artery bypass surgery. He is slowly recovering from that. For the most part he is doing okay. Suspect occasional sternotomy type pains from wound healing. Nothing suggestive of angina. Slight dizzy feeling when he gets up which could be from low blood pressure. He has lost some weight as well. [facility] Medical History (Updated 11/13/24 @ 10:27 by Seth Boyer MD) Obesity (BMI 30-39.9) Blood pressure elevated without history of HTN Finger stiffness Trigger finger, left middle finger Trigger finger, left index finger Chest discomfort Trigger finger, right index finger Trigger finger, right middle finger Abnormal stress ECG with treadmill Diarrhea Asthma Surgical History (Updated 11/15/24 @ 13:03 by Santi George MD) Hx of cardiac cath Hx of tonsillectomy Aftercare following bilateral shoulder joint replacement surgery History of appendectomy Family History Mother Emphysema lung Father Heart failure Brother Substance use disorder Mental health disorder Brother No problems noted. Brother No problems noted. Sister No problems noted. Daughter No problems noted. Son No problems noted. Son No problems noted. Social History Housing: House Alcohol intake: current Alcohol intake frequency: a few times a week Alcohol type: beer Patient Tobacco Use Status: Never used Tobacco Tobacco use type: Cigarette e-Cigarette/Vaping Use: Never Used Second Hand Smoke Exposure: No service: No Current occupational status: employed Cognitive needs: No Hearing needs: No Vision needs: Yes (Glasses) Review of Systems Const Denies weakness ENT Denies dizziness Card Denies chest pain, Denies chest pain with activity, Denies syncope, Denies rapid heart rate, Denies pedal edema, Denies edema, Denies leg edema, Denies lightheadedness, Denies palpitations, Denies dyspnea, Denies dyspnea on exertion and Denies orthopnea Resp Denies cough, Denies dyspnea and Denies dyspnea on exertion GI Denies hematochezia and Denies change in stool character Musc Denies abnormal gait, Denies muscle cramps, Denies muscle weakness, Denies numbness, Denies radiating pain into limb and Denies tingling Neuro Denies abnormal gait, Denies dizziness, Denies syncope, Denies numbness, Denies tingling and Denies weakness Endo Denies palpitations Physical Exam Vital Signs: Last Vital Signs Pulse 77 11/15/24 12:45 BP 118/68 11/15/24 12:45 BMI result Body Mass Index 29.1 Const General: comfortable and no acute distress Orientation/consciousness: patient oriented x3 HEENT Other: Unremarkable Head: Yes normal to inspection Neck Neck: Yes normal visual inspection Chest Chest palpation & inspection: normal inspection of the chest Resp Auscultation: clear to auscultation bilaterally Cardio Palpation: normal PMI Heart sounds: S1 normal heart sound present, S2 normal heart sound present, no gallops, no murmurs and no rubs GI Palpation (GI): Soft to palpation Back/Spine/Pelvis Other: unremarkable Skin General skin exam: no rashes or lesions noted Neuro General: patient oriented x3 Extrem General: Yes normal to inspection Psych Mental Status: mental status grossly normal Assessment & Plan Assessment & Plan (1) Atherosclerotic cardiovascular disease: Code(s): I25.10 - Atherosclerotic heart disease of elim [place] coronary artery without angina pectoris Category: Medical (2) Type 2 diabetes mellitus with hyperglycemia: Comment: [facility] Code(s): E11.65 - Type 2 diabetes mellitus with hyperglycemia Category: Medical (3) Primary hypertension: Code(s): I10 - Essential (primary) hypertension Category: Medical (4) Hypercholesterolemia: Code(s): E78.00 - Pure hypercholesterolemia, unspecified Category: Medical Plan Cardiac studies reviewed. In the echocardiogram, LVEF > 70%. Basal inferior, mid inferior, basal inferoseptal hypokinesis. Mild aortic valve calcification. In the diagnostic catheterization, severe stenosis in the mid LAD, mid RCA and ostial circumflex vessels. Overall, multiple cardiovascular risk factors, stable angina, multivessel coronary disease, status post coronary artery bypass surgery. Continue aspirin, beta-blockers, high-dose statins. With regard to the question of orthostatic dizziness, he can cut back on the beta-harsh dosing from twice a day to once a day. Hopefully that helps. He is starting cardiac rehabilitation soon. Discussion Notes During our discussion, I explained that the sternum ache is likely related to incision healing, and we expect this to resolve over time. We reviewed the patient's dizziness on standing, probably due to orthostatic hypotension in conjunction with his recent weight loss. I recommended reducing Metoprolol intake to once daily and will evaluate its effect. We addressed the need to adjust his diabetes treatment to avoid hypoglycemia due to weight loss, and I advised him to monitor his condition closely during rehab. The importance of adhering to a basic diabetic diet was emphasized. We agreed on a follow-up after the summer with an echocardiogram to assess post-recovery cardiac status. Patient was informed and verbally consented to the use of an ambient scribe for clinic note documentation during this visit. Orders: Orders CA echo transthoracic complete 2 Months I25.10 - Atherosclerotic heart disease of [place] coronary artery without angina pectoris, Z95.1 - Presence of aortocoronary bypass graft Patient Instructions: - Take Metoprolol only once per day. - Monitor for dizziness and report if it persists or worsens. - Follow diabetic diet guidelines; consult a highway maintenance technician if desired. - Resume rehabilitation activities for monitoring recovery. - Observe any significant weight changes and report them to adjust diabetes medications. - Follow up after summer with echocardiogram as planned. Coding Level of Care Code Est Pt Level 4 (20749) Complex EM visit Add On G2211 Diagnoses Atherosclerotic cardiovascular disease I25.10 Type 2 diabetes mellitus with hyperglycemia E11.65 Primary hypertension I10 Hypercholesterolemia E78.00
== END 2024-11-15 13:05 | disposition home or self-care (01) ==
LOC: HO.HCS 12:17
PROVIDERS: PCP Internal Medicine; Visit Provider Internal Medicine
DX: I25.10 Atherosclerotic heart disease of native coronary artery without angina pectoris (principal); E11.65 Type 2 diabetes mellitus with hyperglycemia; I10 Essential (primary) hypertension; E78.00 Pure hypercholesterolemia, unspecified
CPT/HCPCS: 99214

== ENCOUNTER 2024-12-02 22:00 | Emergency (ER) | payer OTHER, SELFPAY ==
--- NOTE | 2024-12-02 | ECG_ITS ---
Test Reason : CHEST PAIN Blood Pressure : */* mmHG Vent. Rate : 74 BPM Atrial Rate : 74 BPM P-R Int : 172 ms QRS Dur : 90 ms QT Int : 376 ms P-R-T Axes : 47 -4 59 degrees QTcB Int : 417 ms Normal sinus rhythm Inferior infarct , age undetermined Cannot rule out Anterior infarct , age undetermined Abnormal ECG No previous ECGs available Referred By: Generic ED Physician Electronically Signed By: Farrukh Stevens
--- NOTE | ~2024-12-02 | CT_ITS ---
CLINICAL HISTORY: tearing chest pain, recent bypass CT angiography chest with contrast. 3D Postprocessing. Comparison: None provided Findings: Thoracic aorta is normal in diameter without dissection. There is no pulmonary embolism. Heart size is normal. There is no significant pericardial effusion. Postoperative changes of recent CABG are noted with mild fat stranding and small amount of ill-defined fluid in the anterior mediastinum. There are no enlarged lymph nodes. There is mild bilateral atelectasis. Lungs appear otherwise clear. Trachea and central bronchi are widely patent. There is no dehiscence of the median sternotomy. Median sternotomy wires are intact. There are nondisplaced fractures of the left posteromedial 1st and 2nd ribs. Limited images of the upper abdomen demonstrate no acute findings. There is cholelithiasis. IMPRESSION: 1. No aortic dissection. 2. Postoperative changes of recent CABG. 3. Nondisplaced fractures of the left posteromedial 1st and 2nd ribs. Upper rib fractures are a relatively common complication from sternal retraction for open heart surgery. 4. Cholelithiasis. This document has been electronically signed by: Emil Maldonado MD on 12/03/2024 00:04:26
[2024-12-02 22:08] VITALS: BP 122/64; BP 136/81; PULSE 74; PULSE 77; RESP 18; TEMP 36.8; O2SAT 92; O2SAT 96; BMI 30.1
[2024-12-02 22:25] LABS: MANUAL DIFF FLAG NO
[2024-12-02 22:26] LABS: Basophils Percent Auto 0.4 % (0-2); Eosinophils Absolute Auto 0.3 X10*3/uL (0.0-0.4); Eosinophils Percent Auto 3.3 % (0-4); Hematocrit 40.3 % (42.0-52.0); Hemoglobin 13.3 g/dl (14.0-18.0); Imm Gran Abs Auto 0.03 X10*3/uL (0.00-0.03); Imm Gran Pct Auto 0.3 % (0.0-0.4); Lymphocytes Percent Auto 20.8 % (20-40); Mean Corpuscular Hemoglobin 29.4 pg (27.0-33.0); Mean Corpuscular Volume 89.2 fL (80.0-98.0); Mean Platelet Volume 9.7 fL (9.4-12.4); Monocytes Absolute Auto 1.1 X10*3/uL (0.1-1.2); Monocytes Percent Auto 11.9 % (2-11); Neutrophils Percent Auto 63.3 % (45-73); Platelet Count 316 X10*3/uL (160-400); Red Blood Count 4.52 X10*6/uL (4.60-5.80); Red Cell Distribution Width 14.4 % (11.0-16.0); White Blood Count 9.5 X10*3/uL (4.8-10.8)
--- NOTE | 2024-12-02 22:26 | ED_ITS ---
HPI - Chest Pain General Chief Complaint: Chest Pain Stated Complaint: chest pain Hx triple bypass Time Seen by Provider: 12/02/24 22:26 Source: patient, family (patient's ) and EMS Mode of arrival: EMS Limitations: no limitations History of Present Illness ED Provider: Jagruti Lauren PA-C HPI narrative: Patient is a 59 year old assigned male at with a history of HTN, CAD, DM, and CABG in September 2024, presenting to the emergency department today with left shoulder pain that radiates into his chest. Patient states that he has been having left sided shoulder pain with movement that radiates into his left chest. Patient denies any dizziness, lightheadedness, abdominal pain, nausea, vomiting, fever, chills, blurry vision, double vision, loss of vision, difficulty breathing, shortness of breath, back pain, night sweats, pain with urination, increased urinary frequency, increased urinary urgency, blood in his urine or stool, syncope or a near syncopal episode, recent trauma or falls, bowel incontinence, bladder incontinence, or any other complaints at this time. Patient was given nitroglycerin and ASA by EMS en route. Relieving factors: rest Exacerbating factors: movement Related Data Home Medications ?Medication ?Instructions ?Recorded ?Confirmed multivitamin 1 tab PO DAILY 08/25/2210/06 aspirin 81 mg tablet,delayed 81 mg PO DAILY 09/05/24 0 11/15/24 release (Adult Aspirin Regimen) metoprolol succinate 25 mg 25 mg PO ONCE 11/15/2410/06 tablet,extended release 24 hr (Toprol XL) Previous Rx's ?Medication ?Instructions ?Recorded Diabetic shoes #1 ea 10/29/23 metformin 1,000 mg tablet 1,000 mg PO BID #180 tabs flash glucose sensor (FreeStyle #7 ea 08/31/24 Pushpa 2 Sensor kit) atorvastatin 80 mg tablet 80 mg PO QPM #90 tabs nitroglycerin 0.4 mg sublingual 0.4 mg sublingual Q5M PRN chest 09/05/24 tablet pain #30 tabs empagliflozin 25 mg tablet 25 mg PO DAILY #30 tabs 08/08 (Jardiance) insulin glargine 100 unit/mL (3 40 unit (0.4 mL) subcu t QPM #15 ea 10/30/24 mL) subcutaneous pen (Lantus Solostar U-100 Insulin) lisinopril 5 mg tablet 5 mg PO DAILY #90 tabs 11/27 Allergies Allergy/AdvReac Type Severity Reaction Status Date / Time semaglutide (From Ozempic) AdvReac Intermediate burping Verified 12/02/24 22:10 Review of Systems 2 Constitutional: Constitutional: Reports no additional constitutional complaints, Denies chills, Denies fever(s) and Denies night sweats Eyes: Eyes: Reports no additional eye complaints, Denies blurry vision, Denies change in vision, Denies diplopia, Denies eye discharge, Denies loss of vision and Denies eye pain ENT: Denies dizziness Cardiovascular: Cardiovascular: Reports no additional cardiovascular complaints, Reports chest pain, Denies lightheadedness, Denies Loss of Consciousness and Denies dyspnea Respiratory: Respiratory: Reports no additional respiratory complaints and Denies dyspnea Gastrointestinal: Gastrointestinal: Reports no additional gastrointestinal complaints, Denies abdominal pain, Denies melena, Denies hematochezia, Denies change in bowel habits and Denies change in stool character Genitourinary: Genitourinary: Reports no additional male genitourinary complaints, Denies hematuria, Denies oliguria, Denies difficulty urinating, Denies dysuria, Denies urinary frequency, Denies urinary hesitancy, Denies urinary incontinence and Denies urinary urgency Musculoskeletal: Musculoskeletal: Reports no additional musculoskeletal complaints, Denies numbness and Denies tingling Comments: left shoulder pain - worse with movement Neurologic: Denies dizziness, Denies loss of vision, Denies numbness and Denies tingling Psychiatric: Psychiatric: Reports no additional psychiatric complaints Endocrine: Endocrine: Reports no additional endocrine complaints Hematologic/Lymphatic: Hematologic/Lymphatic: Reports no additional hematologic/lymphatic complaints Allergic/Immunologic: Allergic/Immunologic: Reports no additional allergic/immunologic complaints PMFSH Past Medical History Attestation statement: The following information was validated with the patient. (all information validated with the patient's ) Source: old records reviewed, obtained from family (patient's provided additional history and confirmed the history provided by the patient ) and nursing notes reviewed Medical History (Updated 12/03/24 @ 00:56 by POORNIMA Lopez) Obesity (BMI 30-39.9) Blood pressure elevated without history of HTN Finger stiffness Trigger finger, left middle finger Trigger finger, left index finger Chest discomfort Trigger finger, right index finger Trigger finger, right middle finger Abnormal stress ECG with treadmill Diarrhea Asthma Surgical History Hx of cardiac cath Hx of tonsillectomy Aftercare following bilateral shoulder joint replacement surgery History of appendectomy Family History Family History Mother Emphysema lung Father Heart failure Brother Substance use disorder Mental health disorder Brother No problems noted. Brother No problems noted. Sister No problems noted. Daughter No problems noted. Son No problems noted. Son No problems noted. Social History Social History Housing: House Alcohol intake: current Alcohol intake frequency: a few times a week Alcohol type: beer Patient Tobacco Use Status: Never used Tobacco Tobacco use type: Cigarette e-Cigarette/Vaping Use: Never Used Second Hand Smoke Exposure: No Advance Directives: No Advance Directives Information Provided: No Do you have a plan to hurt others: No Plan service: No Current occupational status: employed Cognitive needs: No Hearing needs: No Vision needs: Yes (Glasses) Physical Exam 2 Vital Signs: Vital Signs: Last Vital Signs Temp 98.3 F 12/02/24 22:08 Pulse 66 12/03/24 00:10 Resp 14 12/03/24 00:10 BP 108/55 L 12/03/24 00:10 Pulse Ox 96 12/03/24 00:10 O2 Del Method Room Air 12/03/24 00:10 BMI result Body Mass Index 30.1 Const: General: cooperative, no acute distress, alert and awake Nutritional Appearance: well nourished Orientation/consciousness: patient oriented x3 HEENT: Head: Yes normal to inspection and Yes atraumatic Ears: hearing grossly normal bilaterally and external ears normal General nose exam: Normal external nose present, no nasal discharge noted and no epistaxis Face and sinus: Yes normal facial exam, No abrasion and No laceration Mouth: Normal oral and palatal mucosa present, no drooling and no muffled voice Eyes: General: appearance normal, both eyes and all related structures P eriorbital: periorbital findings normal Eyelids: Yes eyelids normal C onjunctivae: conjunctivae normal Pupils: Equal, round and reactive pupils present EOM: EOMs intact bilaterally Neck: Neck: Yes normal visual inspection, Yes full ROM and Yes no lymphadenopathy Resp: Effort & Inspection: normal respiratory effort and able to speak in complete sentences Neuro: General: patient oriented x3, moves all extremities and CN's II-XI intact bilaterally Cranial nerves: Yes Equal, round and reactive pupils present Cognition (Neuro): normal cognition Extrem: General: Yes normal to inspection, Yes full ROM and Yes capillary refill normal Psych: Appearance: grossly normal Mental Status: mental status grossly normal Affect: normal affect Attitude: cooperative Thought process: N ormal thought process present Thought content: Normal thought content present Insight: Good insight present (Psych) Medications Administered Discontinued Medications Generic Name Dose Route Start Last Admin Trade Name Freq PRN Reason Stop Dose Admin Iohexol 100 ml 12/02/24 23:35 12/02/24 23:36 Iohexol 350 Mg/Ml 100 Ml Infus..Btl IV 12/02/24 23:36 100 ml ONCE ONE Administration Medical Decision Making Medical Decision Making [facility] Narrative: Patient is a 59 year old assigned male at with a history of HTN, CAD, DM, and CABG in September 2024, presenting to the emergency department today with left shoulder pain that radiates into his chest. Patient's physical exam was unremarkable. Patient's blood work was unremarkable - including stable troponins. Patient's EKG was unremarkable. Patient's CTA of the aorta showed posteriormedial 1st and 2nd left ribs which the radiologist states is likely secondary to his CABG. I explained my physical exam findings as well as all test results to the patient and the patient's . I answered all questions asked by the patient and the patient's . Given the patient's pain is predominantly with movement and starts within the left shoulder and radiates to the chest - I am suspicious that the rib fractures are causing the patient's pain. I stressed the importance of the patient taking his medication as directed (either prescribed or as the over the counter packaging recommends). I stressed the importance of the patient following up with his primary care provider. I stressed the importance of the patient returning to the emergency department immediately if his symptoms were to worsen or if he were to develop any dizziness, shortness of breath, difficulty breathing, chest pain, blurry vision, loss of vision, nausea, vomiting, abdominal pain, fever, chills, back pain, or any other complaints. Patient and the patient's verbalized agreement and understanding with this treatment plan and discharge. Differential Diagnosis Differential Diagnoses: The differential diagnosis associated with the presentation includes Rib fracture Chest pain Atypical chest pain NSTEMI STEMI Costochondritis Rotator cuff injury Admission/Observation Consideration of admission/observation: Escalation of care including admission/observation considered Patient would have been admitted to the hospital had his work up had any findings where hospital admission was appropriate and his clinical presentation warranted hospital admission. Lab Data [facility] Lab Attestation statement: I reviewed the patient's lab results. My interpretation of these results are in the [facility] Rationale portion of this note. 12/02/24 22:17 12/02/24 22:17 Labs: Lab Results 12/02/24 12/03/24 Range/Units 22:17 00:12 WBC 9.5 (4.8-10.8) X10*3/uL RBC 4.52 L (4.60-5.80) X10*6/uL Hgb 13.3 L (14.0-18.0) g/dl Hct 40.3 L (42.0-52.0) % MCV 89.2 (80.0-98.0) fL MCH 29.4 (27.0-33.0) pg MCHC 33.0 (31.0-36.0) g/dl RDW 14.4 (11.0-16.0) % Plt Count 316 (160-400) X10*3/uL MPV 9.7 (9.4-12.4) fL Immature Gran % (Auto) 0.3 (0.0-0.4) % Neut % (Auto) 63.3 (45-73) % Lymph % (Auto) 20.8 (20-40) % Lares % (Auto) 11.9 H (2-11) % Eos % (Auto) 3.3 (0-4) % Baso % (Auto) 0.4 (0-2) % Lymph # (Auto) 2.0 (1.2-4.9) X10*3/uL Lares # (Auto) 1.1 (0.1-1.2) X10*3/uL Eos # (Auto) 0.3 (0.0-0.4) X10*3/uL Baso # (Auto) 0.0 (0.0-0.2) X10*3/uL Abs Immat Gran (auto) 0.03 (0.00-0.03) X10*3/uL Absolute Neuts (auto) 6.0 (2.0-8.3) x10*3/uL Absolute Nucleated RBC 0.000 (0.0-0.012) X10*3/uL Nucleated RBC % (auto) 0.0 (0.0-0.2) /100WBC Sodium 140 (135-145) mmol/L Potassium 4.0 (3.3-5.1) mmol/L Chloride 107 (96-108) mmol/L Carbon Dioxide 24 (22-29) mmol/L Anion Gap 13 (12-20) BUN 19 H (9-16) mg/dL Creatinine 0.91 (0.5-1.4) mg/dL Estim Creat Clear Calc 101.1 Estimated GFR > 60 Random Glucose 154 H (60-115) mg/dL Calcium 9.2 (8.4-10.2) mg/dL Total Bilirubin 0.5 (0.0-1.0) mg/dL AST 18 (5-37) U/L ALT 17 (0-40) U/L Alkaline Phosphatase 92 (39-117) U/L Troponin I High Sens 23.9 21.0 (<3.5-35.0) ng/L Total Protein 6.9 (6.5-8.0) g/dL Albumin 4.4 (3.5-5.0) g/dL Independent Interpretation I performed an independent interpretation of an: EKG and CT Scan Interpretation: My interpretation is in agreement with the radiologist's impression of this imaging study. L Report Number: [id number]: Total DLP = 405.00 mGy-cm CLINICAL HISTORY: tearing chest pain, recent bypass CT angiography chest with contrast. 3D Postprocessing. Comparison: None provided Findings: Thoracic aorta is normal in diameter without dissection. There is no pulmonary embolism. Heart size is normal. There is no significant pericardial effusion. Postoperative changes of recent CABG are noted with mild fat stranding and small amount of ill-defined fluid in the anterior mediastinum. There are no enlarged lymph nodes. There is mild bilateral atelectasis. Lungs appear otherwise clear. Trachea and central bronchi are widely patent. There is no dehiscence of the median sternotomy. Median sternotomy wires are intact. There are nondisplaced fractures of the left posteromedial 1st and 2nd ribs. Limited images of the upper abdomen demonstrate no acute findings. There is cholelithiasis. IMPRESSION: 1. No aortic dissection. 2. Postoperative changes of recent CABG. 3. Nondisplaced fractures of the left posteromedial 1st and 2nd ribs. Upper rib fractures are a relatively common complication from sternal retraction for open heart surgery. 4. Cholelithiasis. This document has been electronically signed by: Emil Maldonado MD on 12/03/2024 00:04:26 Dictated By: Emil Maldonado MD Signed By: Electronically signed by Emil Maldonado MD 12/03/24 0005 I independently interpreted this EKG and am in agreement with the below findings: Vent. Rate: 74 BPM Atrial Rate: 74 BPM P-R Int: 172 ms QRS Dur: 90 ms QT Int: 376 ms P-R-T Axes: 47 -4 59 degrees QTcB Int: 417 ms Normal sinus rhythm No previous ECGs available DD/ 04 Radiology Impression Discussion of test interpretation with radiology: I have reviewed the radiologist's reading. Independent Historian Clinical information obtained from an independent historian. History obtained from or confirmed by: Spouse (Patient's provided additional history and confirmed the history provided by the patient. ) and EMS (EMS provided additional history and confirmed the history provided by the patient.) Discharge Plan Discharge Clinical Impression: Atypical chest pain Multiple rib fractures Qualifiers: Encounter type: initial encounter Fracture type: closed Laterality: left Q ualified Code(s): S22.42XA - Multiple fractures of ribs, left side, initial encounter for closed fracture Patient Disposition: Home, Self-Care Instructions: Chest Pain (DC), Rib Fracture (ED) Additional Instructions: Your chest CT showed evidence of a fracture / break of the left 1st and 2nd ribs. This likely happened during your procedure and may be the source of your left sided shoulder / chest pain with movement. There is no evidence of an emergent process for your symptoms at this time. Follow up with your primary care provider. Return to the emergency department immediately if your symptoms worsen or if you develop any numbness, tingling, dizziness, shortness of breath, difficulty breathing, chest pain, blurry vision, loss of vision, nausea, vomiting, abdominal pain, fever, chills, back pain, or any other complaints. Please see the information below about our Patient Portal. If you are not yet enrolled in the [facility] Patient Portal, you will receive an enrollment email invitation following your visit to any [facility]/formerly [facility] setting. You may also self-enroll in the Patient Portal by visiting our website: [email or web address] The following information is required to access the Patient Portal: - Your [facility] Medical Record Number - Your personal home email address (must match what is in your electronic medical record, Registration staff can assist with this) - Name - Date of Capabilities of the Patient Portal: - Message some providers - View upcoming appointments - Access your health summary, medical history, and visit history - View current conditions and allergies - View procedure and lab results - View your medications, including guidelines, side effects, and precautions - Complete pre-appointment questionnaires requested by your provider - Ready summary reports of your office visits and procedures To access the Patient Portal Mobile [facility], follow these directions: - Search [employer] in the [employer] Store or [employer] Store - Download the [facility] - Search for [facility] - Enter your login/password Prescriptions: No Action (DME) Diabetic shoes See Rx Instructions .Route .MEDSUPPLY Qty: 1 0RF Rx Instructions: As directed metformin 1,000 mg tablet 1,000 mg PO BID Qty: 180 3RF (DME) FreeStyle Pushpa 2 Sensor Kit See Rx Instructions .ROUTE .COMPLEX Qty: 7 0RF Dose Instruction: USE DIRECTED TO MONITOR BLOOD GLUCOSE DAILY. CHANGE SENSOR EVERY 14 DAYS Rx Instructions: USE DIRECTED TO MONITOR BLOOD GLUCOSE DAILY. CHANGE SENSOR EVERY 14 DAYS Jardiance 25 mg tablet 25 mg PO DAILY Qty: 30 0RF insulin glargine [Lantus Solostar U-100 Insulin] 100 unit/mL (3 mL) insulin pen 40 unit subcut QPM Qty: 15 0RF Rx Instructions: or as directed lisinopril 5 mg tablet 5 mg PO DAILY Qty: 90 0RF multivitamin Tablet 1 tab PO DAILY nitroglycerin 0.4 mg tablet, sublingual 0.4 mg sublingual Q5M PRN (Reason: chest pain) Qty: 30 5RF Rx Instructions: do not exceed 3 doses per episode Advised to stop Viagra. aspirin [Adult Aspirin Regimen] 81 mg tablet,delayed release (DR/EC) 81 mg PO DAILY atorvastatin 80 mg tablet 80 mg PO QPM Qty: 90 3RF metoprolol succinate [Toprol XL] 25 mg tablet extended release 24 hr 25 mg PO ONCE Referrals: Po,Seth Caro MD [Primary Care Provider, Internal Medicine] Print Language: Chinese
[2024-12-02 22:41] LABS: Alanine Aminotransferase 17 U/L (0-40); Albumin Level 4.4 g/dL (3.5-5.0); Alkaline Phosphatase 92 U/L (39-117); Anion Gap 13 (12-20); Aspartate Amino Transferase 18 U/L (5-37); Bilirubin Total 0.5 mg/dL (0.0-1.0); Blood Urea Nitrogen 19 mg/dL (9-16); Calcium 9.2 mg/dL (8.4-10.2); Carbon Dioxide 24 mmol/L (22-29); Chloride 107 mmol/L (96-108); Creatinine Clr Calc Pharmacy 101.1; Estimated Glomerular Filt Rate > 60; Glucose Random 154 mg/dL (60-115); Sodium 140 mmol/L (135-145); Total Protein 6.9 g/dL (6.5-8.0)
[2024-12-02 22:48] LABS: Troponin-I High Sensitivity 23.9 ng/L (<3.5-35.0)
[2024-12-02] MEDS: iohexoL 350 MG/ML 100 ML INFUS..BTL IV (23:36)
[2024-12-03 00:10] VITALS: BP 108/55; PULSE 66; RESP 14; O2SAT 96
[2024-12-03 01:09] VITALS: BP 108/55; PULSE 66; RESP 14; TEMP 36.6; O2SAT 96
== END 2024-12-03 01:11 | disposition home or self-care (01) ==
PROVIDERS: Physician Assistant Medical; Emergency Provider Emergency Medicine Emergency Medical Services; PCP Internal Medicine
DX: R07.89 Other chest pain (principal); S22.42XA Multiple fractures of ribs, left side, initial encounter for closed fracture; X58.XXXA Exposure to other specified factors, initial encounter; M25.512 Pain in left shoulder; E11.9 Type 2 diabetes mellitus without complications; I10 Essential (primary) hypertension; Z95.1 Presence of aortocoronary bypass graft; Z79.82 Long term (current) use of aspirin; Z79.84 Long term (current) use of oral hypoglycemic drugs; Z79.02 Long term (current) use of antithrombotics/antiplatelets; Z79.899 Other long term (current) drug therapy; Z79.4 Long term (current) use of insulin; Y93.89 Activity, other specified; Y92.019 Unspecified place in single-family (private) house as the place of occurrence of the external cause; Y99.9 Unspecified external cause status
CPT/HCPCS: 36415; 71275; 80053; 84484; 85025; 93005; 99284; Q9967

== ENCOUNTER → 2024-12-02 22:05 | Outpatient (BNV) | payer OTHER, SELFPAY | PROVIDERS: Emergency Provider Emergency Medicine Emergency Medical Services; PCP Internal Medicine; Visit Provider Internal Medicine Cardiovascular Disease | DX: R94.31 Abnormal electrocardiogram [ECG] [EKG] (principal); R07.9 Chest pain, unspecified | CPT/HCPCS: 93010 ==

== ENCOUNTER → 2024-12-02 22:36 | Outpatient (BNV) | payer OTHER, SELFPAY | PROVIDERS: Emergency Provider Emergency Medicine Emergency Medical Services; PCP Internal Medicine; Visit Provider Radiology Diagnostic Radiology | DX: S22.42XA Multiple fractures of ribs, left side, initial encounter for closed fracture (principal); K80.20 Calculus of gallbladder without cholecystitis without obstruction; Z95.1 Presence of aortocoronary bypass graft | CPT/HCPCS: 71275 ==

== ENCOUNTER 2024-12-08 12:37 | Outpatient (AMB) | payer OTHER, SELFPAY ==
[2024-12-08 12:45] VITALS: BP 122/62; PULSE 74; O2SAT 96; BMI 29.4
--- NOTE | 2024-12-08 12:45 | A.OFFPC_ITS ---
Vital Signs 12/08/24 12:45 Height 5 ft 10 in Weight 205 lb BMI 29.4 BP 122/62 Blood Pressure Location Lt brachial Position Sitting Pulse 74 Pulse Source Pulse Oximeter Pulse Oximetry (%) 96 Oxygen Delivery Method Room Air Intake Visit Reasons[place] [facility] [place] ?eye infection, ? skin infection Allergies semaglutide (From Ozempic) Adverse Reaction (Intermediate, Verified 12/08/24 12:46) burping Tobacco use date assessed: 08/07/24 Dental Screening Dental Screen Date: 08/07/24 HPI [facility] [place] ?eye infection, ? skin infection HPI Details L shoulder pain PFSH Medical History (Updated 12/04/24 @ 00:01 by Raul Jacob) Obesity (BMI 30-39.9) Blood pressure elevated without history of HTN Finger stiffness Trigger finger, left middle finger Trigger finger, left index finger Chest discomfort Trigger finger, right index finger Trigger finger, right middle finger Abnormal stress ECG with treadmill Diarrhea Asthma Surgical History Hx of cardiac cath Hx of tonsillectomy Aftercare following bilateral shoulder joint replacement surgery History of appendectomy Family History Mother Emphysema lung Father Heart failure Brother Substance use disorder Mental health disorder Brother No problems noted. Brother No problems noted. Sister No problems noted. Daughter No problems noted. Son No problems noted. Son No problems noted. Social History Housing: House Alcohol intake: current Alcohol intake frequency: a few times a week Alcohol type: beer Patient Tobacco Use Status: Never used Tobacco Tobacco use type: Cigarette e-Cigarette/Vaping Use: Never Used Second Hand Smoke Exposure: No service: No Current occupational status: employed Cognitive needs: No Hearing needs: No Vision needs: Yes (Glasses) Questionnaire PHQ-9 Over the last 2 weeks, how often have you been bothered by any of the following problems? 1. Little interest or pleasure in doing things: not at all 2. Feeling down, depressed, or hopeless: not at all 3. Trouble falling or staying asleep, or sleeping too much: not at all 4. Feeling tired or having little energy: not at all 5. Poor appetite or overeating: not at all 6. Feeling bad about yourself - or that you are a failure or have let yourself or your family down: not at all 7. Trouble concentrating on things, such as reading the newspaper or watching television: not at all 8. Moving or speaking so slowly that other people could have noticed. Or the opposite - being so fidgety or restless that you have been moving around a lot more than usual: not at all 9. Thoughts that you would be better off or of hurting yourself in some way: not at all Total score: 0 Depression Screening Interpretation: Negative Depression Screening Done: Yes Source: Developed by Drs. Yovani Collazo, Ese Baxter, Deion Estrella and colleagues, with an educational valeriy from [employer]. Thrive Questionnaire Date Thrive assessed: 11/13/24 I am a: Patient What is your living situation today?: I have a steady place to live Within the past 12 months, did the food you bought not last and you didn't have the money to get more?: Never true Within the past 12 months, did you worry whether your food would run out before you got money to buy more?: Never true Do you have trouble paying for medicines?: No Do you have trouble getting transportation to medical appointments?: No Do you have trouble paying your heating and electricity bill?: No Do you have trouble taking care of your child, family member or friend?: No Do you have trouble with day-to-day activities such as bathing, preparing meals, shopping, managing finances, etc.?: No Are you currently unemployed and looking for a job?: No Are you interested in more education?: No Please select the resources that you would like help with: None Currently or been in a relationship where the following occur: No concerns reported THRIVE Score: 0 AUDIT C Alcohol Use Questionnaire (AUDIT-C) 1. How often do you have a drink containing alcohol?: 2-4 times a month 2. How many drinks containing alcohol do you have on a typical day when you are drinking?: 1 or 2 3. How often do you have six or more drinks on one occasion?: Never Total Score: 2 ELIU-7 AMB Questionnaire ELIU-7 Date ELIU - 7 assessed: 08/07/24 Source: Developed by Drs. Yovani Collazo, Ese Baxter, Deion Estrella and colleagues, with an educational valeriy from [employer]. Physical exam (Primary Care) Vital Signs: Last Vital Signs Pulse 74 12/08/24 12:45 BP 122/62 12/08/24 12:45 Pulse Ox 96 12/08/24 12:45 Oxygen Delivery Method Room Air 12/08/24 12:45 BMI result Body Mass Index 29.4 Tobacco/Smoking Status: Tobacco use Status Tobacco use date assessed 08/07/24 12/08/24 12:46 Patient Tobacco Use Status Never used Tobacco 12/08/24 12:46 Tobacco use type Cigarette 12/08/24 12:46 e-Cigarette/Vaping Use Never Used 12/08/24 12:46 PHQ-9: PHQ-9 Score PHQ-9: Total score 0 12/08/24 12:53 Depression Screening Interpretation: Negative Thrive Assessment: Date of Thrive Assessment Date Thrive assessed 11/13/24 12/08/24 12:46 Currently or been in a relationship where the following occur: No concerns reported Const General: alert; No acute distress Eyes Conjunctivae: conjunctivae normal Resp Auscultation: clear to auscultation bilaterally Cardio Rate: regular rate Rhythm: regular rhythm GI Inspection: Yes normal to inspection Extrem General: Yes normal to inspection and No edema Coding Level of Care Code Est Pt Level 4 (33072) Complex EM visit Add On G2211 Diagnoses Status post aorto-coronary artery bypass graft Z95.1 Atherosclerotic cardiovascular disease I25.10 Hypercholesterolemia E78.00 T2DM (type 2 diabetes mellitus) E11.9 Assessment & Plan Assessment & Plan (1) Status post aorto-coronary artery bypass graft: Code(s): Z95.1 - Presence of aortocoronary bypass graft Category: Surgical Plan: Follows up with Cardiology on aspirin (2) Atherosclerotic cardiovascular disease: Code(s): I25.10 - Atherosclerotic heart disease of [place] coronary artery without angina pectoris Category: Medical (3) Hypercholesterolemia: Code(s): E78.00 - Pure hypercholesterolemia, unspecified Category: Medical (4) T2DM (type 2 diabetes mellitus): Code(s): E11.9 - Type 2 diabetes mellitus without complications Category: Medical Plan History of Present Illness The patient is a 59-year-old male presenting with chest pain and follow-up on chronic conditions. He has a history of diabetes mellitus, hypercholesterolemia, cholelithiasis, atherosclerotic cardiovascular disease, and hypertension. In November, the patient experienced chest pain and visited the emergency room, where a CT angiogram showed no aortic dissection but revealed rib fractures. The patient was diagnosed with multivessel coronary artery disease and underwent coronary artery bypass surgery. The patient's hemoglobin A1c was 6.5, indicating controlled diabetes, and he is up to date with colonoscopy screenings. He attends cardiac rehabilitation and follows up with cardiology, where he was advised to reduce beta harsh dosage due to low blood pressure. The patient reports an ulcer on his toe, which he monitors daily, and has been advised to maintain good hygiene and hydration to aid healing. Health Maintenance - Colonoscopy: Up to date - Cardiac rehabilitation: Ongoing participation Social History - Exercise: Participates in cardiac rehabilitation Review of Systems - Cardiovascular: Reports chest pain, denies current palpitations - Endocrine: Reports ulcer on toe, denies other skin changes - Gastrointestinal: Denies recent changes in bowel habits - Ophthalmologic: Denies vision problems or eye infections Physical Exam - Cardiovascular: Regular heart sounds, no murmurs noted Results - Labs: Hemoglobin A1c 6.5, mild anemia with hemoglobin 13.3 - Imaging: CT angiogram showed no aortic dissection, rib fractures noted - Cardiac: Echocardiogram with EF >70%, hypokinesis noted - Cardiac catheterization: Severe stenosis in mid LAD and RCA Plan The patient will continue with cardiac rehabilitation and follow up with cardiology for ongoing management of coronary artery disease. He is advised to maintain blood pressure control with adjusted beta harsh dosing and monitor blood glucose levels regularly. The ulcer on the toe should be monitored daily, with emphasis on hygiene and hydration to promote healing. Follow-up blood work is recommended to assess cholesterol levels and ensure LDL is below 70 mg/dL. Patient was informed and verbally consented to the use of an ambient scribe for clinic note documentation during this visit. Discussion Notes I discussed with the patient the importance of continuing cardiac rehabilitation and the need for regular follow-up with cardiology to manage coronary artery disease effectively. We reviewed the adjustment of beta harsh dosing to maintain optimal blood pressure and the necessity of regular blood glucose monitoring. I emphasized the importance of daily monitoring of the toe ulcer and maintaining good hygiene to facilitate healing. We also discussed the need for follow-up blood work to monitor cholesterol levels, aiming for an LDL below 70 mg/dL. Patient Instructions - Continue cardiac rehabilitation and follow up with cardiology. - Monitor blood pressure and adjust beta harsh dosing as advised. - Check blood glucose levels regularly. - Monitor the toe ulcer daily and maintain good hygiene. - Schedule follow-up blood work to check cholesterol levels.
--- OUTSIDE RECORDS SUMMARY | 2024-12-08 13:16 | XMS_ITS | Data Portability ---
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 Lab HbA1c (hemoglobin A1c), blood 2022 023 [facility], [address] [place] [address], [address], 3 11:02:52 microalbumi n/creatinin e, ratio panel, urine 2022 023 [facility], [address] [place] [address], [address], 3 12:27:09 Referral wound care referral - DM foot ulcers, both great toes 2022 023 [email or web address], [address] [place] [address] [place], [address], 3 10:12:51 nutritionis t/dietitian referral 2022 023 [email or web address] Suze Whipple, [address] [place] [address] [place], [address], 3 10:49:02 otolaryngol ogist referral - tinnitus and TMJ same side; please eval and Rx as needed 2021 022 [email or web address] Dunia Burkett MD, [address] [place], [address], 11:14:12 Procedures None recorded. Surgeries None recorded. Imaging None recorded. Medication Orders cephalexin 500 mg tablet 2022 023 [facility], [address] [place] [address], [address], 14:38:26 Patient TargetsNo targets recorded. Patient InstructionsNo instructions recorded. 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 METAB OLIC PANEL glucose 262 mg/dL 70-100 high Not Available [address], [address], 06/19/2022 11:00:07 06/18/19 23 06/19/2022 COMP. METAB OLIC PANEL BUN 13 mg/dL 7-18 Not Available [address], [address], 06/19/2022 11:00:07 06/18/19 23 06/19/2022 COMP. METAB OLIC PANEL creatinine 1.0 mg/dL 0.8-1. 3 Not Available [address], [address], 06/19/2022 11:00:07 06/18/19 23 06/19/2022 COMP. METAB OLIC PANEL B/C 13.0 ratio Not Available [address], [address], 06/19/2022 11:00:07 06/18/19 23 06/19/2022 COMP. METAB [...] be used in pregn valentina. Not Available [address], [address], 06/19/2022 11:00:07 06/18/19 23 06/19/2022 COMP. METAB OLIC PANEL sodium 140 mmol/ L 136-14 5 Not Available [address], [address], 06/19/2022 11:00:07 06/18/19 23 06/19/2022 COMP. METAB OLIC PANEL potassium 5.0 mmol/ L 3.5-5. 1 Not Available [address], [address], 06/19/2022 11:00:07 06/18/19 23 06/19/2022 COMP. METAB OLIC PANEL chloride 101 mmol/ L 96-107 Not Available [address], [address], 06/19/2022 11:00:07 06/18/19 23 06/19/2022 COMP. METAB OLIC PANEL anion gap 7.6 5.0-15 .0 Not Available [address], [address], 06/19/2022 11:00:07 06/18/19 23 06/19/2022 COMP. METAB OLIC PANEL CO2 31 mmol/ L 21-32 Not Available [address], [address], 06/19/2022 11:00:07 06/18/19 23 06/19/2022 COMP. METAB OLIC PANEL calcium 9.2 mg/dL 8.5-10 .3 Not Available [address], [address], 06/19/2022 11:00:07 06/18/19 23 06/19/2022 COMP. METAB OLIC PANEL total protein 7.2 g/dL 6.4-8. 2 Not Available [address], [address], 06/19/2022 11:00:07 06/18/19 23 06/19/2022 COMP. METAB OLIC PANEL albumin 4.2 g/dL 3.4-5. 0 Not Available [address], [address], 06/19/2022 11:00:07 06/18/19 23 06/19/2022 COMP. METAB OLIC PANEL globulin 3.0 g/dL Not Available [address], [address], 06/19/2022 11:00:07 06/18/19 23 06/19/2022 COMP. METAB OLIC PANEL A/G 1.4 ratio 0.8-2. 0 Not Available [address], [address], 06/19/2022 11:00:07 06/18/19 23 06/19/2022 COMP. METAB OLIC PANEL total bilirubin 0.80 mg/dL 0.00-1 .00 Not Available [address], [address], 06/19/2022 11:00:07 06/18/19 23 06/19/2022 COMP. METAB OLIC PANEL AST 20 U/L 0-37 Not Available [address], [address], 06/19/2022 11:00:07 06/18/19 23 06/19/2022 COMP. METAB OLIC PANEL ALT 37 U/L 6-63 Not Available [address], [address], 06/19/2022 11:00:07 06/18/19 23 06/19/2022 COMP. METAB OLIC PANEL alk. phos. 117 U/L 50-136 Not Available [address], [address], 06/19/2022 11:00:07 06/18/19 23 06/19/2022 LIPID PANEL cholesterol 191 mg/dL <200 mg/dl Maty able 200-2 39 mg/dl Borde rline High >240 mg/dl High Not Available [address], [address], 06/19/2022 11:00:09 06/18/19 23 06/19/2022 LIPID PANEL triglyceride s 289 mg/dL high LIPS= Speci men Sligh tly Lipem ic. Chem Resul ts may be effec nicole. <150 mg/dL Karley l 150-1 99 mg/dL Borde rline High 200-4 99 mg/dL High >500 mg/dL Very High Not Available [address], [address], 06/19/2022 11:00:09 06/18/19 23 06/19/2022 LIPID PANEL direct HDL 54 mg/dL <40 mg/dl - Major Risk for CHD >60 mg/dl - Negat garry Risk for CHD Not Available [address], [address], 06/19/2022 11:00:09 06/18/19 23 06/19/2022 DIREC T LDL direct LDL 103 mg/dL RISK CATEG ORY LDL GOAL _ CHD or CHD Risk Equiv alent s <100 mg/dl (10-y ear risk >20%) 2+ Risk Facto rs <130 mg/dl (10-y ear risk <= 20%) 0-1 Risk Facto r <160 mg/dl Almo st all peopl e with 0-1 risk facto r have a 10 year risk <10%, thus 10 year risk asses ment in peopl e with 0-1 risk facto r is not neces audrey. Not Available [address], [address], 06/19/2022 11:00:11 06/18/19 23 06/19/2022 HGB A1C hemoglobin A1C 10.7 % 4.8-6. 0 high Goal: <7% in Patie nts with Diabe sarina An A1c betwe en 5.7-6 .4% is ident ified as pre-d iabet es and sugge sts risk for progr essio n to diabe sarnia Two a1c value s of 6.5% or highe r is consi stent with a diagn osis of diabe sarina but may need furth er confi rmati on Not Available [address], [address], 06/19/2022 12:22:00 06/18/19 23 06/19/2022 HGB A1C estimated average glucose 260.4 mg/dL Not Available [address], [address], 06/19/2022 12:22:00 09/13/19 23 09/14/2022 HGB A1C [...] furth er confi rmati on Not Available [address], [address], 09/14/2022 11:02:52 09/13/19 23 09/14/2022 HGB A1C estimated average glucose 180.0 mg/dL Not Available [address], [address], 09/14/2022 11:02:52 09/13/19 23 09/14/2022 MICRO ALBUM IN/CR EATIN INE RATIO PANEL , URINE microalbumin 8.0 mg/L 1.3-20 .0 Not Available [address], [address], 09/14/2022 12:27:09 09/13/19 23 09/14/2022 MICRO ALBUM IN/CR EATIN INE RATIO PANEL , URINE creatinine urine 100.6 mg/dL 30.0-1 25.0 Not Available [address], [address], 09/14/2022 12:27:09 09/13/19 23 09/14/2022 MICRO ALBUM IN/CR EATIN INE RATIO PANEL , URINE microalb/cre at ratio 8.0 mg/g_ creat 0.0-29 .0 Not Available [address], [address], 09/14/2022 12:27:09 06/10/20 22 06/10/2022 US abdom [...] wnl IVC: appear s wnl WALLACE SWEET [facility] [address] [facility], [place], [address], 06/11/2022 07:07:36 10/14/1909/17/2022 colon oscop y proce dure (PROC ) No observ ation record ed. BARCODE Not Available 2022 11:32:22 Result Notes None recorded. Problems Name Problem SNOMED Code Status Onset Date Resolution Date Notes Provider Name and Address Organization Details Recorded Time Essential hypertensi on 93672347 Active Not Available [facility] 3 21:02:46 Excessive cerumen in ear canal 266986439 Active Not Available [facility] 3 21:02:46 Anxiety 78666374 Active 2016 Not Available [facility] 3 21:02:46 Neuropathy due to diabetes mellitus 842749430 Active 2018 Not Available [facility] 3 21:02:46 Mixed hyperlipid emia 819673978 Active 2006 Not Available [facility] 3 21:02:46 Internal hemorrhoid s 15202035 Completed 200205/03/2013 Not Available [facility] 3 02:03:12 Effusion of joint of shoulder region 91050576 Completed 03/27/2014 Wallace Sweet MD [address] [place] [address], [address] , [facility] 4 05:26:27 Impotence of organic origin Active 2007 Not Available [facility] 3 21:02:46 Carpal tunnel syndrome 50381003 Active 2001 Not Available [facility] 3 21:02:46 Diabetes mellitus 44833981 Completed 200603/27/2014 Wallace Sweet MD [address] [place] [address], [address] , [facility] 4 05:26:27 Disorder of bursa of shoulder region 61582083 Completed 200705/03/2013 Not Available [facility] 3 02:04:09 Temporoman dibular joint disorder 96839798 Completed 200103/27/2014 Wallace Sweet MD [address] [place] [address], [address] , [facility] 4 05:26:43 Pain of shoulder region 79265498 Completed 200707/29/2008 Not Available [facility] 3 03:03:47 Pain of shoulder region 69507147 Completed 05/03/2013 Not Available [facility] 3 02:01:00 Benign essential hypertensi on 0905716 Completed 01/19/2012 Not Available [facility] 3 03:03:47 Impacted cerumen 15330399 Completed 200005/03/2013 Not Available [facility] 3 02:02:10 Pure hyperchole sterolemia 214089729 Completed 200203/27/2014 Wallace Sweet MD [address] [place] [address], [address] , [facility] 4 05:26:27 Medial epicondyli tis 11614691 Completed 200705/03/2013 Not Available [facility] 3 02:04:00 Obesity 770581482 Active 2006 Not Available [facility] 3 21:02:46 Abdominal pain 57859147 Completed 200205/03/2013 Not Available [facility] 3 02:01:20 On examinatio n - a rash Completed 05/03/2013 Not Available [facility] 3 02:00:46 Type 2 diabetes mellitus without complicati on 150352966 Completed 03/27/2014 Wallace Sweet MD [address] [place] [address], [address] , [facility] 4 05:26:43 Type 2 diabetes mellitus without complicati on 908580994 Completed 200601/05/2012 Not Available [facility] 3 03:03:47 Hearing loss 85369441 Active 2001 Not Available [facility] 3 21:02:46 Renal disorder due to type 2 diabetes mellitus 081325195 Active 2006 Not Available [facility] 3 21:02:46 Elevated blood-pres sure reading without diagnosis of hypertensi on 640823843 Completed 200103/27/2014 Wallace Sweet MD [address] [place] [address], [address] , [facility] 4 05:26:27 Sprain of knee and leg Completed 200205/03/2013 Not Available [facility] 3 02:03:04 Uncontroll ed type 2 diabetes mellitus 054943981 Active 2007 Not Available [facility] 3 21:02:46 Scrotal varices Active 2001 Not Available [facility] 3 21:02:46 Otogenic otalgia 41253015 Completed 200105/03/2013 Not Available [facility] 3 02:03:18 Notes:Some problems listed i n Document: #[id number] could not be added to this patient's chart. Please review this document and add these problems to the patient's chart manually as needed. Problem Notes None recorded. Procedures Surgical History Date Name Laterality Status Provider Name and Address Organization Details Recorded Time 01/09/20 22 Fundus Photography completed Erna Villalpando, OD [address] [place] [address], [address], [facility] 01/09/2022 13:35:41 04/25/20 21 Fundus Photography completed Erna Villalpando, OD [address] [place], [address], [facility] 04/25/2021 09:33:54 04/25/20 21 Optical Coherence Tomography (Retina) completed Erna Villalpando, OD [address] [place], [address], [facility] 04/25/2021 09:34:09 05/23/20 19 Cerumen Removal - Irrigation/Lavag e completed Anabelle Bragg [facility] 05/23/2019 11:33:23 10/06/19 19 Cerumen Removal - Irrigation/Lavag e completed Yvonne Edwards [facility] 10/05/2018 14:20:07 01/08/20 18 Cerumen Removal - Irrigation/Lavag e completed Akua Pizano LPN [facility] 01/07/2018 16:13:04 07/19/19 18 Cerumen Removal - Irrigation/Lavag e completed aMry Lott LPN [facility] 07/19/2017 11:26:34 11/25/19 17 Glucose Meter Teaching completed Akua Pizano LPN [facility] 11/24/2016 09:44:01 09/20/19 17 Cerumen Removal - Irrigation/Lavag e completed Karina Li [facility] 09/19/2016 13:28:46 12/17/19 16 Cerumen Removal completed Michelle Mary LPN [facility] 12/17/2015 11:32:24 03/07/20 15 Cerumen Removal completed Viri Gomez RN [facility] 03/07/2015 17:46:53 06/06/20 14 Cerumen Removal completed Shannan Layc RN [facility] 06/06/2014 09:00:42 10/06/19 13 Cerumen Removal completed Michelle Mary LPN [facility] 10/05/2012 11:59:21 04/14/20 12 Other (specify) completed Domenic Collazo MD [address] [place] [address], [address], [facility] 04/04/2014 14:03:38 01/19/20 12 Cerumen Removal completed Cate Sims RN [facility] 01/19/2012 12:04:10 12/22/19 12 Treatment and Advice completed Ammy Chou, OT [address] [place] [address], [address], [facility] 12/22/2011 13:00:06 08/11/19 11 Cerumen Removal completed Zo Johnston LPN [facility] 08/11/2010 16:18:17 10/15/19 10 Cerumen Removal completed Zo Johnston LPN [facility] 10/14/2009 11:03:38 08/08/19 10 Aspiration Major Joint/Bursa completed Wallace Sweet MD [address] [place] [address], [address], [facility] 08/08/2009 12:04:47 06/14/19 10 Other (specify) completed Domenic Collazo MD [address] [place] [address], [address], [facility] 04/04/2014 14:03:38 12/20/19 09 Cerumen Removal completed Marge Richey NP [address] [place] [address], [address], [facility] 12/19/2008 09:54:31 01/01/19 84 Appendectomy completed Domenic Collazo MD [address] [place], [address], [facility] 04/04/2014 14:03:38 06/14/18 71 Other (specify) completed Domenic Collazo MD [address] [place], [address], [facility] 04/04/2014 14:03:38 Imaging Results None recorded. Procedure Notes None recorded. Medical Equipment None Reported. Allergies Allergen ID Allergen Name Allergen Category Reaction Reaction Severity Criticality Documentation Date Start Date Code Code System Note Provider Name and Address Organization Details Recorded Time Trulicity medicatio n abdominal pain moderate Not available 03/22/2020 52954 96 RxNorm Jumana Johnson MA [facility] 11:01:03 Medications Name Sig Start Date [...] MOUTH TWICE DAILY 07/22 completed Not taking 10/24/22 AAS/Not taking at this time 07/22/22 JF [...] 2nd Gen Pen Needle 32 gauge x 5/32 USE 1 DIRECTED TO INJECT INSULIN 4 [...] Not Available Vitals Date Recorded Body height Body mass index (BMI) Body weight Body temperature Heart rate Oxygen saturation Oxygen saturation in Arterial blood by Pulse oximetry Systolic blood pressure Diastolic blood pressure Provider Name and Address Organization Details Last Updated DateTime 3 177.8 cm 31.7 kg/m2 522294. 91 g 98.1 [degF] 90 /min 97 % 97 % 140 mm[Hg] 66 mm[Hg] Nadira Borges, RMA [facility] 3 14:03:45 Date Recorded Body height Heart rate Oxygen saturation Oxygen saturation in Arterial blood by Pulse oximetry Systolic blood pressure Diastolic blood pressure Provider Name and Address Organization Details Last Updated DateTime 3 177.8 cm 80 /min 97 % 97 % 128 mm[Hg] 60 mm[Hg] Gloria Crockett MA [facility] 3 14:42:18 Date Recorded Body weight Body temperature Heart rate Respiratory rate Oxygen saturation Oxygen saturation in Arterial blood by Pulse oximetry Systolic blood pressure Diastolic blood pressure Provider Name and Address Organization Details Last Updated DateTime 3 14756.4 7 g 97.2 [degF] 88 /min 16 /min 96 % 96 % 144 mm[Hg] 69 mm[Hg] Gloria Crockett MA [facility] 3 15:25:48 Date Recorded Body height Heart rate Oxygen saturation Oxygen saturation in Arterial blood by Pulse oximetry Systolic blood pressure Diastolic blood pressure Provider Name and Address Organization Details Last Updated DateTime 3 177.8 cm 82 /min 96 % 96 % 112 mm[Hg] 60 mm[Hg] Gloria Crockett MA [facility] 3 08:07:48 Date Recorded Body height Body mass index (BMI) Body weight Systolic blood pressure Diastolic blood pressure Provider Name and Address Organization Details Last Updated DateTime 09/21/2022 177.8 cm 32.7 kg/m2 897105.0 6 g 128 mm[Hg] 64 mm[Hg] Gloria Crockett MA [facility] 3 15:11:54 Date Recorded Body height Heart rate Body temperature Body mass index (BMI) Body weight Systolic blood pressure Diastolic blood pressure Provider Name and Address Organization Details Last Updated DateTime 2 177.8 cm 84 /min 98.1 [degF] 31.1 kg/m2 97844.7 5 g 136 mm[Hg] 74 mm[Hg] Socorro Mckeon [facility] 2 11:09:57 Social History Question Answer Notes LastModified by Organizat ion Details LastModified Time Tobacco Smoking Status Never Smoker Not Available [facility] 2011 04:53:49 Do You Have An Advance Directive? No DBA_[email or web address] Information not available 2011 What Is Your Level Of Caffeine Consumption? Heavy 4-5 Cups Coffee Daily [email or web address] Information not available 06/13/2020 How Much Tobacco Do You Chew? None Information not available 07/28/2012 What Type Of Diet Are You Following? REGULAR Information not available 05/23/2019 Which Illicit Or Recreational Drugs Have You Used? No Recreational Drugs [email or web address] Information not available 04/04/2014 How Many Days In The Past Year [...] DSME Plan Status In Progress - boy Bullhoma salima not available 02/10/2012 Diabetes Ed Classes Discussed Patient Not Appropriate Information not available 05/04/2019 Marital Status DBA_PATCH_ 11 [id number] Information not available 2011 Mosquito Repellent Used Routinely No When He Knows He Will Need It Information not available 11/07/2008 What Was The Date Of Your Most Recent Tobacco Screening? 09/21/2022 [email or web address] Information not available 09/21/2022 How Many Children [...] Your Home? Yes Information not available 12/01/2021 How Much Tobacco Do You Smoke? No DBA_PATCH_ 117 Information not available 2011 General Stress Level High Information not available 07/28/2012 Do You Use Sunscreen Routinely? No DBA_PATCH_ 117 Information not available 2011 Sex: Unknown Functional Status Question Answer Note LastModified by Organizat ion Details LastModified Time Do you or have you ever used any other forms of tobacco or nicotine? No Information not available 07/22/2022 What is your level of alcohol consumption? Moderate 1-2 every 2-3 weeks [email or web address] Information not available 07/22/2022 Do you or have you ever used smokeless tobacco? Never used smokeless tobacco Information not available 05/23/2019 What is your occupation? [employer] Information not available 07/28/2012 Do you or have you ever used e-cigarettes or vape? Never used electronic cigarettes Information not available 05/23/2019 What is your exercise level? Occasional 2x/wk Information not available 12/01/2021 Mental Status None recorded. Family History Relationship Description Onset Age of this Age Resolved Age Notes LastModified by Organization Details LastModified Time Father Diabetes mellitus previo usly record ed as Diabet es [email or web address] Not available 05/04/2014 13:53:42 Mother Chronic obstructive pulmonary disease [email or web address] Not available 2013 13:53:42 Paternal Grandfather Malignant neoplasm of lung [email or web address] Not available 2013 13:53:42 Medical History Condition Response Erectile Dysfunction Y Diabetes Type II Y Hyperlipidemia Y Hypertension Y Immunizations Vaccine Type Date Status Note Provider Nam e and Address Organization Details Recorded Time Td(adult) unspecified formulation 7 completed Not Available [facility] 10/01/2022 21:02:47 influenza, unspecified formulation 7 completed Not Available [facility] 10/01/2022 21:02:47 pneumococcal polysaccharide PPV23 7 completed Not Available [facility] 10/01/2022 21:02:47 influenza, unspecified formulation 7 completed Not Available [facility] 10/01/2022 21:02:47 influenza, unspecified formulation 8 completed Not Available [facility] 10/01/2022 21:02:47 Influenza, split virus, quadrivalent, PF 3 completed Not Available [facility] 07/01/2019 02:26:42 Influenza, split virus, trivalent, preservative 4 completed Not Available [facility] 10/01/2022 21:02:47 Influenza, split virus, quadrivalent, PF 9 completed Not Available [facility] 07/01/2019 02:38:00 Tdap 2 completed Wallace Sweet MD [address] [place] [address], [address], [facility] 12/02/2021 13:46:50 COVID-19, mRNA, LNP-S, PF, 30 mcg/0.3 mL dose 1 completed Not Available [facility] 10/01/2022 21:02:47 COVID-19, mRNA, LNP-S, PF, 30 mcg/0.3 mL dose 04/21/202 1 completed Not Available [facility] 10/01/2022 21:02:47 Past Encounters Encounter ID Performer Location Encounter Start Date Encounter Closed Date Diagnosis/Indication Diagnosis SNOMED-CT Code Diagnosis ICD10 Code Diagnosis Note [id number] POORNIMA Willis , [facility], [address] [place] [address] 10/27/2000 10:45:00 07/04/2008 02:02:29 [id number] TREATMENT NURSE [facility], [facility], [address]ICE [address] [place] [address] 11/25/2001 10:38:36 07/04/2008 02:02:29 [id number] Akua Cerda NP , [facility], [address] [place] [address] 11/22/2001 12:58:05 07/04/2008 02:02:29 [id number] Akua Cerda NP , [facility], [address] [place] [address] 02/17/2002 10:16:06 07/04/2008 02:02:29 [id number] Akua Cerda NP , [facility], [address] [place] [address] 04/11/2002 10:38:32 07/04/2008 02:02:29 [id number] Wallace Sweet MD , [facility], [address] [place] [address] 05/18/2002 08:54:31 07/04/2008 02:02:29 [id number] [facility] - [address] [address] 06/23/2002 08:25:25 07/04/2008 02:02:29 [id number] Akua Cerda NP , [facility], [address] [place] [address] 10/27/2002 10:38:56 07/04/2008 02:02:29 [id number] Tano Rizzo MD , [facility], [address] [place] [address] 12/04/2002 14:46:36 07/04/2008 02:02:29 [id number] [facility] - [address] [address] 12/04/2002 00:00:00 07/04/2008 02:02:29 [id number] MD CLAUDE Bazan, [facility], [address] [place] [address] 12/19/2002 16:00:41 07/04/2008 02:02:29 [id number] STUART Lopez, [facility], [address] [place] [address] 05/21/2003 13:45:19 05/21/2003 17:33:03 [id number] MD CLAUDE Ashton, [facility], [address] [place] [address] 11/01/2003 16:14:38 11/02/2003 10:55:10 [id number] MD CLAUDE Bazan, [facility], [address] [place] [address] 06/09/2004 09:12:28 06/09/2004 14:35:16 [id number] POORNIMA Peralta, [facility], [address] [place] [address] 07/17/2005 09:52:58 07/17/2005 15:36:35 [id number] STUART Lopez, [facility], [address] [place] [address] 07/05/2006 10:47:49 07/05/2006 15:09:32 [id number] [facility] - [address] [address] 07/06/2006 07:27:25 07/06/2006 07:27:29 [id number] STUART Lopez, [facility], [address] [place] [address] 07/09/2006 13:58:02 07/09/2006 15:28:32 [id number] [facility] - [address] [address] 07/09/2006 14:56:53 07/09/2006 14:57:19 [id number] STUART Lopez, [facility], [address] [place] [address] 07/16/2006 00:00:00 07/04/2008 02:02:29 [id number] STUART Lopez, [facility], [address] [place] [address] 07/23/2006 07:25:57 07/23/2006 11:32:05 [id number] FP TREATMENT NURSE [facility] FP, [facility], [address] [place] [address] 07/26/2006 13:43:23 07/26/2006 16:17:18 [id number] [facility] - [address] [address] 08/09/2006 07:13:41 08/09/2006 07:13:45 [id number] STUART Lopez, [facility], [address] [place] [address] 08/27/2006 08:04:39 08/27/2006 11:15:54 [id number] STUART Lopez, [facility], OFFICE [address] [place] [address] 08/24/2006 08:24:16 09/13/2006 14:24:02 [id number] MD CLAUDE Bazan, [facility], [address] [place] [address] 12/21/2006 14:50:21 12/23/2006 08:29:08 [id number] [facility] - [address] [address] 12/24/2006 07:43:32 12/24/2006 07:43:36 [id number] [facility] - [address] [address] 03/16/2007 07:12:11 03/16/2007 07:12:16 [id number] MD CLAUDE Bazan, [facility], [address] [place] [address] 03/22/2007 15:01:47 07/04/2008 02:02:29 [id number] STUART Lopez, [facility], [address] [place] [address] 05/23/2007 09:05:39 07/04/2008 02:02:29 [id number] [facility] - [address] [address] 05/27/2007 07:46:56 05/27/2007 07:47:00 [id number] STUART Lopez, [facility], [address] [place] [address] 07/22/2007 10:48:34 07/04/2008 02:02:29 [id number] STUART Reynolds, [facility], [address] [place] [address] 6 12/22/2007 14:13:35 07/04/2008 02:02:29 [id number] [facility] - [address] [address] 12/21/2007 07:18:47 12/21/2007 07:18:53 [id number] Wilberto Hopson , PT Physical Therapy, [facility] [address] [place] [address] 12/28/2007 16:24:57 12/29/2007 09:55:50 [id number] MD CLAUDE Bazan, [facility], [address] [place] [address] 6 01/16/2008 13:54:48 07/04/2008 02:02:29 [id number] Wilberto Hopson , PT Physical Therapy, [facility] [address] [place] [address] 01/11/2008 16:24:51 01/24/2008 14:08:00 [id number] Wallace Sweet MD , [facility], [address] [place] [address] 02/22/2008 08:46:10 07/04/2008 02:02:29 [id number] MD CLAUDE Fraser, [facility], [address] [place] [address] 6 02/27/2008 10:14:54 07/04/2008 02:02:29 [id number] [facility] - [facility] [address] [place] [address] 04/19/2008 07:02:00 04/19/2008 07:02:05 [id number] STUART Lopez, [facility], [address] [place] [address] 05/03/2008 09:17:10 07/04/2008 02:02:29 [id number] Brandon Castano, [facility], [address] [place] [address] 6 05/08/2008 10:28:13 07/04/2008 02:02:29 [id number] Akua Cerda NP , [facility], [address] [place] [address] 05/17/2008 10:44:38 07/04/2008 02:02:29 [id number] MD CLAUDE Gallardo, [facility], [address] [place] [address] 6 07/26/2008 10:36:24 07/30/2008 11:01:51 [id number] MD CLAUDE Bazan, [facility], [address] [place] [address] 11/07/2008 10:33:14 11/12/2008 14:37:51 [id number] [facility] RADIOLOGY [facility] [facility] [address] [place] [address] 11/07/2008 11:51:45 11/09/2008 11:42:29 [id number] STUART Paredes, [facility], OFFICE [address] [place] [address] 12/19/2008 09:10:58 12/19/2008 14:12:15 [id number] MD CLAUDE Bazan, [facility], [address] [place] [address] 6 02/20/2009 16:27:04 02/21/2009 14:15:54 [id number] [facility] - [address] [address] 10/29/2008 07:04:44 10/29/2008 07:04:54 [id number] Moy Oh, [facility], [address] [address] 12/04/2008 08:35:01 12/04/2008 14:08:24 [id number] [facility] - [address] [address] 02/05/2009 08:52:32 02/05/2009 08:52:40 [id number] MD CLAUDE Bazan, [facility], [address] [place] [address] 08/08/2009 10:49:48 08/09/2009 11:28:19 [id number] Akua Cerda NP , [facility], [address] [place] [address] 09/17/2009 10:57:01 09/19/2009 12:48:32 [id number] Akua Cerda NP , [facility], [address] [place] [address] 6 10/01/2009 09:16:37 10/01/2009 14:51:25 [id number] Akua Cerda NP , [facility], [address] [place] [address] 6 10/14/2009 10:06:27 10/14/2009 12:00:02 [id number] Wallace Sweet MD , [facility], [address] [place] [address] 01/16/2010 07:41:39 01/16/2010 12:37:13 [id number] Lauren Khan NP , [facility], [address] [place] [address] 6 08/11/2010 14:49:16 08/14/2010 13:29:10 [id number] Wallace Sweet MD , [facility], [address] [place] [address] 09/04/2010 11:12:12 09/09/2010 08:33:12 [id number] Wallace Sweet MD , [facility], [address] [place] [address] 01/14/2011 10:09:19 01/14/2011 11:23:50 [id number] Noel Kidd MD , [facility], [address] [place] [address] 04/10/2011 11:50:57 04/13/2011 13:24:56 [id number] Kaye Lindsey PA-C , [facility], [address] [place] [address] 12/22/2011 07:59:48 12/22/2011 14:26:16 [id number] Nicole Brower MD Radiology , [facility] [address] [place] [address] 12/22/2011 08:46:23 12/23/2011 11:15:39 [id number] Ammy Chou, OT Physical Therapy, [facility] [address] [place] [address] 12/22/2011 12:29:23 12/23/2011 07:34:56 [id number] ALAN Amin, [facility], [address] [place] [address] 01/05/2012 08:28:16 01/05/2012 09:29:20 [id number] Ammy Chou, OT Physical Therapy, [address] [address] 01/05/2012 12:21:57 01/05/2012 13:09:59 [id number] Ammy Chou, OT Physical Therapy, [address] [address] 01/14/2012 14:16:39 01/15/2012 07:40:59 [id number] ALAN Amin, [facility], [address] [place] [address] 01/19/2012 07:32:37 01/19/2012 09:15:36 [id number] Cyndi Flores, Ms, Rdn, Ldn, CDE Nutrition -[address] [address] 02/10/2012 08:18:57 02/10/2012 09:08:04 [id number] Wallace Sweet MD , [facility], [address] [place] [address] 07/28/2012 08:56:22 07/28/2012 09:46:12 [id number] JUANIS Farfan , [facility], [address] [place] [address] 10/05/2012 11:05:15 10/05/2012 15:55:29 [id number] MD CLAUDE Bazan, [facility], [address] [place] [address] 06/13/2013 08:52:36 06/13/2013 09:57:34 Influenza vaccine needed [id number] 106 Mixed hyperlipidemia 297018450 continue to work on diet and exercise as discussed Uncontroll ed type 2 diabetes mellitus 542899597 Benign ess ential hypertension 3677421 continue to work on diet ,exercisea nd lowering salt intake as discussed [id number] HAFSA Law, [facility], [address] [place] [address] 08/04/2013 15:13:51 08/07/2013 13:22:35 Impacted cerumen 59862845 irrigated in clinic no complicati ons. [id number] Wallace Sweet MD , [facility], [address] [place] [address] 03/26/2014 16:14:43 03/26/2014 16:49:19 Benign essential hypertension 4342528 Mixed hyperlipidemia 835761487 Uncontroll ed type 2 diabetes mellitus 787198684 Renal diso rder due to type 2 diabetes mellitus 211711430 Benign par oxysmal positional vertigo 759066074 [id number] Domenic Collazo MD Endocrino logy, [facility] [address] [place] [address] 04/04/2014 13:14:50 04/04/2014 15:08:28 Uncontrolled type 2 diabetes mellitus 914397414 -continue metformin 1g 2x/d -stop glyburide, change to glipizide 10mg 2x/d -start victoza 0.6 mg once daily for 1 week; then increase to 1.2 mg once daily Obesity 712957566 Essential hypertension 41284957 -lisinopri l Mixed hyperlipidemia 382038081 -lovastati n [id number] Taisha Johnston Physical Therapy, [address] [address] 04/16/2014 16:18:50 04/17/2014 08:27:41 Benign paroxysmal positional vertigo 833126896 [id number] Taisha Johnston Physical [facility], [address] [address] 2014 12:01:49 2014 13:34:38 Benign paroxysmal positional vertigo 993818074 [id number] Domenic Collazo MD Endocrino logy, [facility] [address] [place] [address] 05/04/2014 13:01:46 05/04/2014 14:08:08 Uncontrolled type 2 diabetes mellitus 671048488 -continue metformin 1g 2x/d -continue glipizide 10mg 1 x/d, may decrease to 1/2 tab daily if less than 100mg/dL after taking this medicine and then stop if still less than 100mg/dL -continue victoza 1.2 mg subcut once daily, may then decrease and stop if regularly less than 100mg/dL Obesity 083834752 Essential hypertension 61034481 -lisinopri l Mixed hyperlipidemia 259615415 -lovastati n [id number] POORNIMA Peralta , [facility], [address]ICE [address] [place] [address] 06/06/2014 08:18:24 06/08/2014 08:28:39 Excessive cerumen in ear canal 484060763 recurrence [id number] Wallace Sweet MD , [facility], [address] [place] [address] 08/13/2014 16:22:39 08/13/2014 17:04:10 Benign essential hypertension 7902358 Mixed hyperlipidemia 977615348 Type 2 sailaja betes mellitus without complication 215896784 [id number] JUANIS Farafn , [facility], [address] [place] [address] 11/14/2014 16:22:50 11/14/2014 16:48:58 Pain in right lower limb 061479473 upper leg, post fall on ice 2-3 months, not fulle recovered, will refer to PT for further evaluation , advised to use ice alternatin g w/heat x 20 m. X 3-4 x/day, Ibuprofen 200 mg 3 tabs TID for the next 7-10d, take w/food, F/U PRN, may need further evaluation w/Orthoped ist, agrees w/plan. [id number] Wallace Sweet MD , [facility], [address] [place] [address] 12/10/2014 16:14:55 12/10/2014 16:41:53 Mixed hyperlipidemia 615540949 Benign ess ential hypertension 8574796 Type 2 sailaja betes mellitus without complication 948098160 Obesity 984769947 [id number] Mary Kate Weir MD , [facility], [address] [place] [address] 03/07/2015 16:40:20 03/08/2015 11:19:32 Lifestyle 801051868 Impacted cerumen 81511453 bilateral impacted cerumen, rinsed out with resolution . [id number] Wallcae Sweet MD , [facility], [address] [place] [address] 07/08/2015 08:36:19 07/08/2015 09:15:01 Mixed hyperlipidemia 917123970 E78.2 Benign ess ential hypertension 9963124 I10 Uncontroll ed type 2 diabetes mellitus 160566399 E11.65 Acute situ ational disturbance 727000735 F43.20 Chest pain 73108060 R07. 9 [id number] Wallace Sweet MD , [facility], [address] [place] [address] 10/07/2015 16:18:20 10/07/2015 16:49:45 Benign essential hypertension 9506902 I10 . Mixed hyperlipidemia 267 684710 E78.2 continue to work on diet and exercise as discussed Uncontroll ed type 2 diabetes mellitus 041566475 E11.65 Obesity 907734192 E66.9 Impotence 889883373 N52. 9 [id number] Sarika Rose RN, BSN, [facility] DM [address] [address] 10/16/2015 15:17:49 10/16/2015 16:45:28 Uncontrolled type 2 diabetes mellitus 947068826 E11.65 [id number] JUANIS Law-AIDA , [facility], [address] [place] [address] 12/17/2015 10:18:10 12/18/2015 10:57:34 Impacted cerumen 79749187 H61.23 irrigated without issue in clinic. [id number] Wallace Sweet MD , [facility], [address] [place] [address] 01/06/2016 15:21:50 01/06/2016 16:18:35 Benign essential hypertension 9643336 I10 Blood pressure at goal Mixed hyperlipidemia 267 478848 E78.2 continue to work on diet and exercise as discussed Uncontroll ed type 2 diabetes mellitus 553344858 E11.65 [id number] Sarika Rose RN, BSN, [facility] DM [address] [address] 01/15/2016 15:14:26 01/21/2016 12:10:03 Uncontrolled type 2 diabetes mellitus 024854789 E11.65 Met with Wilberto today for diabetes [...] changes and bring his meter to [facility]. He will likely need insulin if his [...] of regular physical activity on blood sugars. [id number] Sarika Rose RN, BSN, [facility] DM Education , [address] [address] 03/11/2016 14:57:26 03/11/2016 16:55:46 Uncontrolled type 2 diabetes mellitus 781494411 E11.65 Met with Wilberto today for follow [...] limiting cardiovasc ular risk. Other strategies for [facility]. [id number] Wallace Sweet MD , [facility], [address] [place] [address] 04/28/2016 08:47:08 04/28/2016 10:07:36 Adult health examination 403532038 Z00.00 see Risk Assessment and Lifestyle Change Counseling section above Counseling 833108325 Z71 .9 Mixed hyperlipidemia 267 514719 E78.2 continue to work on diet and exercise as discussed Uncontroll ed type 2 diabetes mellitus 186968001 E11.65 Impotence of organic origin 444295205 N52.9 Family his tory of malignant neoplasm of thyroid 352131280 Z80.8 [id number] Erna Villalpando OD Eye Care, [facility] [address] [place] [address] 06/03/2016 14:09:37 06/03/2016 16:01:10 Type 2 diabetes mellitus without complication 830410549 E11.9 uncontroll ed, no diabetic retinopath y OU, pt ed, encouraged good BS control to maintain good eye health and vision. RTC 1 yr CEE or sooner with vision changes. [id number] Wallace Sweet MD , [facility], [address] [place] [address] 08/04/2016 08:48:09 08/04/2016 09:18:49 Benign essential hypertension 6091971 I10 Mixed hyperlipidemia 267 499117 E78.2 Uncontroll ed type 2 diabetes mellitus 255151885 E11.65 Disorder o f nervous system due to type 2 diabetes mellitus 159323991 E11.40 Overweight 003368734 E66 .3 [id number] Sarika Rose RN, BSN, [facility] DM Education , [facility] [address] [place] [address] 09/01/2016 15:35:52 09/02/2016 09:08:30 Uncontrolled type 2 diabetes mellitus 607780928 E11.65 Met with Wilberto today for follow [...] limiting cardiovasc ular risk. Other strategies for [facility]. [id number] John Luna MD , [facility], [address]ICE [address] [place] [address] 09/19/2016 13:00:28 09/19/2016 15:23:49 Impacted cerumen 37630868 H61.23 Otalgia 00707079 H92.03 likley due to cerumen [id number] Mani Padron MD , [facility], [address] [place] [address] 11/23/2016 11:29:28 11/24/2016 13:05:04 Acute bronchitis 11980376 J20.9 OOW for 2 days , tessalon perles, rest, liquids [id number] Wallace Sweet MD , [facility], [address] [place] [address] 11/24/2016 08:39:51 11/24/2016 09:46:06 Benign essential hypertension 4529031 I10 Mixed hyperlipidemia 267 827349 E78.2 Uncontroll ed type 2 diabetes mellitus 961882790 E11.65 [id number] Sarika Rose RN, BSN, [facility] DM Education , [facility] [address] [place] [address] 01/05/2017 14:22:22 01/11/2017 14:06:39 Uncontrolled type 2 diabetes mellitus 234032360 E11.65 Met with Wilberto today for follow [...] more. He reports he is flying to [place] in 2 weeks and is nervous about [...] once we decide what to prescribe him. [id number] Wallace Sweet MD , [facility], [address] [place] [address] 03/08/2017 16:58:56 03/08/2017 17:43:47 Benign essential hypertension 7724876 I10 Mixed hyperlipidemia 267 681386 E78.2 Uncontroll ed type 2 diabetes mellitus 154711666 E11.65 [id number] Sarika Rose RN, BSN, [facility] DM Education , [facility] [address] [place] [address] 03/16/2017 15:32:36 03/18/2017 08:48:45 Uncontrolled type 2 diabetes mellitus 422344085 E11.65 Met with Wilberto today for follow [...] testing often. He reports his trip to [place] went well during the summer when he was nervous he would eat too much food while he was away. He was at a wedding. He reports he tends to gain 15 lbs when he is in [place] and this was the first trip he [...] of regular physical activity on blood sugars. [id number] Wallace Sweet MD , [facility], [address] [place] [address] 07/13/2017 14:38:02 07/14/2017 08:06:17 Benign essential hypertension 8621004 I10 Mixed hyperlipidemia 267 445356 E78.2 Uncontroll ed type 2 diabetes mellitus 225667622 E11.65 [id number] JUANIS Farfan , [facility], [address] [place] [address] 07/19/2017 09:59:16 07/19/2017 11:23:32 Screening for malignant neoplasm of colon 593412041 Z12.11 Referral for a DIRECT booked colonoscop y. This patient is a healthy ASA Class 1 or 2 patient (only mild systemic disease), or a STABLE, well controlled insulin dependent diabetic. They do not have serious cardiac disease ie KS/angiopl asty within 1 year, symptomati c CHF; renal failure with CKD 4 or 5; take Coumadin, Plavix, Aggrenox, etc. Acholic stool 76150777 R 19.5 Abnormal colored elif, labs & US ordered as written below, further treatment pending results. Impacted cerumen 7627744 6 H61.23 Both ears successful ly cleared of cerumen. Advised to use Debrox gtts. to keep ears patent. [id number] Meng Cruz MD , [facility], [address] [place] [address] 09/27/2017 11:53:22 09/28/2017 09:35:28 Acute bronchitis 74441069 J20.9 Reassured. Lungs completely clear. Enc force fluids, steam inhalation prn, adequate rest. OK to continue otc cold/cough meds prn for symptom management . F/u here if not gradually improving, symptoms worsening, especially if develops fevers or increased SOB. Codeine cough syrup prn primarily for night time use. Warned can cause drowsiness . [id number] Lianna Almazan D.O. , [facility], OFF[address] [place] [address] 10/01/2017 14:36:18 10/01/2017 16:03:25 Acute low back pain 592207947 M54.5 09/25 came out with cold/bronc hitis [...] alternate hot/cold packs. follow up 4-5 days. [id number] John Luna MD , [facility], [address] [place] [address] 11/13/2017 09:44:36 11/13/2017 11:25:52 Dysfunction of eustachian tube 65053207 H69.91 supportive care f/u if not improved in 2-3 weks [id number] Meng Cruz MD , [facility], [address] [place] [address] 01/07/2018 14:46:25 01/10/2018 08:54:41 Hearing loss 98156646 H91.91 Impacted cerumen 8832662 6 H61.23 Nurse in as above. TM's [...] phone next week. Consider ENT/audiol ogy referral. [id number] Wallace Sweet MD , [facility], [address] [place] [address] 04/19/2018 13:34:53 04/19/2018 14:18:10 Benign essential hypertension 3423379 I10 Mixed hyperlipidemia 267 566782 E78.2 Uncontroll ed type 2 diabetes mellitus 705331725 E11.65 Hearing loss 41625362 H9 1.91 Anxiety 24356004 F41.9 [id number] Sarika Rose, RN, BSN, [facility] DM Education , [facility] [address] [place] [address] 06/27/2018 08:42:53 07/04/2018 09:48:45 Uncontrolled type 2 diabetes mellitus 403499807 E11.65 Met with Wilberto clark for follow [...] of regular physical activity on blood sugars. [id number] Sarika Rose RN, BSN, [facility] DM Education , [facility] [address] [place] [address] 08/02/2018 07:50:46 08/02/2018 11:32:49 Uncontrolled type 2 diabetes mellitus 903545149 E11.65 Met with Wilberto today for follow [...] Other strategies for maintainin g heart health. [id number] Erna Villalpando OD Eye Care, [facility] [address] [place] [address] 08/02/2018 09:03:25 08/02/2018 15:56:51 Type 2 diabetes mellitus without complication 174557932 E11.9 uncontroll ed, no diabetic retinopath y OU, pt ed, encouraged good BS control to maintain good eye health and vision. RTC 1 yr CEE or sooner with vision changes. [id number] oJhn Luna MD FP, [facility], [address] [place] [address] 10/05/2018 13:03:14 10/06/2018 08:27:14 Uncontrolled type 2 diabetes mellitus 243939371 E11.65 Pt to do labs, f/u w/ PCP in the next month Active or passive immunization 170667907 Z23 Pt declined TD for today despite knowing the risk of disease and Mixed hyperlipidemia 267 995053 E78.2 Pt to have labs done and schedule w/ PCP within the next month- discussed goal is LDL < 100 Impacted cerumen 7957626 6 H61.23 Bilateral impacted cerumen- ear lavage done Essential hypertension 12520228 I10 Pt to have labs done and schedule w/ PCP within the next month Neuropathy due to diabetes mellitus 295225224 E11.40 pt states- chronic- reviewed improved control of BS's will decrease symptoms. [id number] Wallace Sweet MD , [facility], [address] [place] [address] 03/30/2019 08:30:29 03/30/2019 09:12:31 Mixed hyperlipidemia 252155475 E78.2 Active or passive immunization 951572745 Z23 Benign ess ential hypertension 3936127 I10 Neuropathy due to diabetes mellitus 866959119 E11.40 Uncontroll ed type 2 diabetes mellitus 196884779 E11.65 [id number] Sarika Rose RN, BSN, [facility] DM Education , [address] [address] 05/04/2019 08:44:36 05/05/2019 12:08:07 Uncontrolled type 2 diabetes mellitus 914802286 E11.65 Met with Wilberto clark for follow [...] limiting cardiovasc ular risk. Other strategies for [facility] [employer]. [id number] Gloria Leonard MD , [facility], [address] [place] [address] 05/23/2019 10:04:58 05/23/2019 15:19:11 Active or passive immunization 928656452 Z23 Asymmetric al sensorineural hearing loss 006576020 H90.5 pt will call for appt- printed the referral from Dr Sweet earlier this year so he can callhe never followed updoes not feel sx have changed Impacted c erumen of bilateral ears 5444332272 630387 H61.23 irrigation todaycompl etely cleared after several attempts [id number] John Luna MD , [facility], [address] [place] [address] 07/06/2019 08:16:55 07/06/2019 13:42:42 Acute upper respiratory infection 43399134 J06.9 Educated patient that URI is a [...] or failure to resolve in 2-4 weeks. [id number] Sarika Rose RN, BSN, [facility] DM Education , [facility] [address] [facility] [place] [address] 07/12/2019 13:14:32 07/17/2019 11:36:40 Uncontrolled type 2 diabetes mellitus 616439639 E11.65 Met with Wilberto and his today [...] much insulin on his own at this point.-Sen t Dr. Sweet a message to notify him of this incase pt needs to hear this from his own physician. Reviewed the following: Reviewed how diabetes is progressiv e and medication s spinning frame changer time (which includes insulin). Monitoring : Appropriat e times to test blood sugar and target blood sugars. Physical Activity : Introducti on to its importance . Effects of regular physical activity on blood sugars. Chronic Complicati ons: Introducti on to long-term effects, Importance of ABCs (A1c, Blood pressure and Cholestero l control) in limiting cardiovasc ular risk. Other strategies for [facility]. Reviewed the benefits of insulin and how he will need a long acting insulin before we start him on meal time insulin. [id number] Sarika Rose RN, BSN, [facility] DM Education , [facility] [address] [place] [address] 08/23/2019 12:54:55 08/23/2019 15:28:53 Uncontrolled type 2 diabetes mellitus 579482782 E11.65 Met with Wilberto and his today for diabetes education, kindly referred by Dr. Sweet.-He has had diabetes for about 10 years now.-Just arrived last week from [place]. No fever, no cough. -Last A1C was [...] 2 days). 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 He is working 13 [...] diabetes is progressiv e and medication s spinning frame changer time (which includes insulin). Monitoring : Appropriat e times to test blood sugar and target blood sugars.Chr onic Complicati ons: Introducti on to long-term effects, Importance of ABCs (A1c, Blood pressure and Cholestero l control) in limiting cardiovasc ular risk. Other strategies for [facility] [employer] [id number] Wallace Sweet MD , [facility], [address] [place] [address] 08/24/2019 10:34:06 08/24/2019 17:49:12 Rib pain 450172558 R07.81 s/p fall. Advised compressio n brace and ibuprofen. RTC for worsening pain. [id number] Sarika Rose RN, BSN, [facility] DM Education , [address] [address] 10/19/2019 09:06:19 10/20/2019 09:04:53 Uncontrolled type 2 diabetes mellitus 002356363 E11.65 -Virtual Appt via TRAN[employer] due to COVID-19 pandemic.- Kindly referred by [...] limiting cardiovasc ular risk. Other strategies for [facility]. Long acting insulin such as Lantus or Basaglar and the benefits for his blood sugars. [id number] Sarika Rose RN, BSN, [facility] DM Education , [facility] [address] [place] [address] 11/30/2019 10:15:19 12/01/2019 09:18:58 Uncontrolled type 2 diabetes mellitus 174005087 E11.65 -Virtual Appt via phone due to COVID-19 pandemic. He was on about to go running. Appt was short over the phone.-Kin wesley referred by Dr. Sweet for diabetes education. [...] usual procedures with regard to billing and ruizi ality apply. Patient was notified that the provider location is not at [facility] Patient location: home During the visit the patient s medical history and medical record were reviewed. The patient was notified to call our office for worsening or urgent symptoms. [id number] Wallace Sweet MD , [facility], OFFICE [address] [place] [address] 03/22/2020 10:46:30 03/25/2020 09:35:39 Mixed hyperlipidemia 088169662 E78.2 Essential hypertension 71994455 I10 Uncontroll ed type 2 diabetes mellitus 872914340 E11.65 [id number] Meng Cruz MD , [facility], OFFICE [address] [place] [address] 06/13/2020 10:08:22 06/17/2020 10:27:30 Muscle pain 10590016 M79.10 advised ample rest and hydration and gentle movement. RTC for worsening/ persisting sx. [id number] Meng Cruz MD , [facility], OFFICE [address] [place] [address] 06/25/2020 14:01:39 06/26/2020 13:07:05 COVID-19 [id number] U07.1 Right sided headache lingering. No red flags. Advised ample rest, hydration , OTC migrelief. F/U in 1 week or sooner for worsening sx. [id number] Meng Cruz MD , [facility], OFFICE [address] [place] [address] 07/02/2020 11:31:22 07/03/2020 14:29:04 SARS-CoV-2 032726212 U07.1 MEDINA has resolved. Asymptomat ic. Back at work. RTC for concerning sx. [id number] Sarika Rose RN, BSN, [facility] Education , [address] [place] [address] 08/22/2020 09:04:35 08/22/2020 10:47:49 Uncontrolled type 2 diabetes mellitus 550386443 E11.65 -Virtual Appt via phone due to COVID-19 pandemic. He could not hear the provider when we tried [place] [facility]. -Kindly referred by Dr. Sweet for [...] 180 mg/dl. 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 [id number] Walalce Sweet MD , [facility], OFFICE [address] [place] [address] 12/30/2020 10:35:47 12/30/2020 11:37:27 Mixed hyperlipidemia 783546116 E78.2 Essential hypertension 60296088 I10 Neuropathy due to diabetes mellitus 583248215 E11.40 [id number] Sarika Rose RN, BSN, [facility] , [facility] [address] [place] [address] 01/28/2021 08:11:07 01/31/2021 15:37:06 Uncontrolled type 2 diabetes mellitus 738257652 E11.65 -Virtual Appt via [employer] due to COVID-19 pandemic. -Kindly referred by [...] his glucose more often. Concerned about his long-term affects of diabetes, as he has been elevated with high A1C for many years. He likely needs short acting insulin with meals. Will discuss with Dr. Sweet about starting Humalog or Novolog. Did not get a chance to discuss this with Wilberto today and will discuss this at our next visit. [id number] Wallace Sweet MD FP, [facility], OFFICE [address] [place] [address] 04/03/2021 08:49:27 04/03/2021 09:15:23 Essential hypertension 11753352 I10 Mixed hyperlipidemia 267 105701 E78.2 Uncontroll ed type 2 diabetes mellitus 204960236 E11.65 [id number] Sarika Rose RN, BSN, [facility] , [facility] [address] [place] [address] 04/08/2021 09:03:28 04/10/2021 12:59:38 Uncontrolled type 2 diabetes mellitus 256993504 E11.65 -Virtual Appt via [employer] due to COVID-19 pandemic. -Kindly referred by [...] it. He bought a toe guard from [employer]. At one point, he had to get custom made, from [employer] (about 10 years ago). As soon as [...] down blood sugars. FU in 1 month. 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 refer to retina. 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 No DR OS. No CSME OU. Presbyopia 26662224 H52. 4 ok to cont with OTC readers. [id number] Sarika Rose, RN, BSN, [facility] , [facility] [address] [place] [address] 07/14/2021 09:09:17 07/15/2021 09:52:12 Uncontrolled type 2 diabetes mellitus 441659240 E11.65 -Virtual Appt via over the phone due to COVID-19 pandemic. Pt. tried connecting to [employer], however, it would not connect (he has [...] wax in the past. Tried to call [facility] to have it removed, however, was told that [facility] is no longer doing this. About 3 [...] in the past. Wants to see a mounter saxophones for it. There is a referral for a mounter saxophones from 04/03, encouraged he call to schedule an appt. -Asked about sensors, and discussed how he does not currently qualify for a sensor based on [place] strict guidelines with sensors. However, his [...] this month. Schedule an appt with the mounter saxophones . Call insurance to find out if [...] requiremen ts to go on a sensor. [id number] Gloria Leonard MD Podiatry, [facility] [address] [place] [address] 08/05/2021 10:29:51 08/05/2021 11:30:28 Disorder of nervous system due to type 2 diabetes mellitus 983682464 E11.49 Pronation of foot 123509 03 M21.6X9 [id number] Sarika Rose RN, BSN, [facility] DM Education , [facility] [address] [place] [address] 09/16/2021 10:02:55 09/19/2021 11:05:31 Uncontrolled type 2 diabetes mellitus 293896642 E11.65 -Virtual Appt via [employer] today for diabetes education. -Kindly referred by [...] sugars available due to losing his glucometer .4- F: 1444/4- F: 121; BD: 1474/3- F: [...] guard for his large calluses. Saw a mounter saxophones and was told it was due to [...] until fasting glucose are below 130 mg/dl. [id number] Wallace Sweet MD , [facility], [address]ICE [address] [place] [address] 12/01/2021 10:39:30 12/01/2021 11:12:28 Adult health examination 305561511 Z00.00 see Risk Assessment and Lifestyle Change Counseling section above Counseling 496626525 Z71 .9 including cardivascu lar risk reduction counseling Depression screening 171 774021 Z13.31 depression screening tool administer ed, entered into emr, scored and discussed, time greater than 7.5 minutes Screening for alcohol abuse 104945648 Z13.39 Essential hypertension 45170872 I10 Mixed hyperlipidemia 267 207465 E78.2 Active or passive immunization 044806234 Z23 Uncontroll ed type 2 diabetes mellitus 085980420 E11.65 Impacted c erumen of bilateral ears 5823233515 103040 H61.23 [id number] Sarika Rose RN, BSN, [facility] , [address] [address] 12/24/2021 09:05:34 01/05/2022 16:28:55 Uncontrolled type 2 diabetes mellitus 468038149 E11.65 -Virtual Appt via over [employer] for diabetes education. -Kindly referred by Dr. [...] them off over the phone:12/24 - F: 148/12- F: 128; BD: 152/- F: 151; BD: 162/10- F: 168; BD: 1337/9- F: 171; BD: 221/8- F: 201; BD: 191/7- F: 187; BD: 1687/6- F: 188; BD: 1587/- F: 165; BD: 151 -No hypoglycem ia reported. -He does not eat after 1 pm. He gets home by 7:30 pm and will have dinner. He will have tonic water on his 5:30 pm break. -He does have some numbness and tingling, saw a mounter saxophones . He gets calluses on his big toe. He has flat feet and this causes the calluses. He puts a toe guard on them when walking.-Makayla barroso was a year ago. He went to [facility] eye doctor. He was told that he [...] said that Dexcom is not covered at [employer], however, it is worth calling insurance to find out if it is covered with a DME and how much is the co-pay. The Freestyle Pushpa sensor is covered with [employer], however the co-pay is $100 per month. Pt.'s blood sugars are improved since he is watching his diet, however, his A1C was 12% in November and has been above 9-10% for years therefore, he is really in need of short acting insulin to avoid long-term complicati ons. Sent a message to Dr. Sweet about starting a small dose of Humalog or Novolog 5 units with each meal. Pt. does not currently have long-term complicati ons. Reviewed how insulin puts him [...] and the preferred DME is [facility]. 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 mild NPDR OU, trace ME OS. new finding. PED resolved OS. refer to retina in 1-2 weeks. [id number] Sarika Rose RN, BSN, [facility] , [address] [address] 01/21/2022 09:03:01 01/21/2022 12:26:35 Uncontrolled type 2 diabetes mellitus 341355522 E11.65 -Virtual Appt via over [employer] today for diabetes education. -Kindly referred by [...] connect his Freestyle Pushpa 2 sensor to [facility]'s [employer] ([employer]) account today. Download of sensor reveals:-A verage [...] prevent insulin from stacking. -Now on the Freestyle Pushpa 2 sensor and had trouble with [...] he has eaten something. FU in February. [id number] Sarika Rose RN, BSN, [facility] Education , [facility] [address] [place] [address] 02/18/2022 09:43:48 02/18/2022 10:30:23 Uncontrolled type 2 diabetes mellitus 646738756 E11.65 -Virtual Appt via over the phone [...] burp and he had diarrhea. -Connected to [employer] ([employer]) and able to review his download today: [...] appt in person. FU in 1 month. [id number] Sarika Rose RN, BSN, [facility] , [address] [address] 04/02/2022 10:05:34 04/02/2022 13:10:29 Uncontrolled type 2 diabetes mellitus 262746301 E11.65 -Virtual Appt via over [employer] today. -Kindly referred by Dr. Sweet. -He [...] mg/dl.Carb ohydrate Ratio: 5 grams -Connected to [employer] ([employer]) and able to review his download today: [...] in 1 month to review sensor download. [id number] Mary Kate Weir MD , [facility], OFFICE [address] [place] [address] 04/06/2022 10:40:31 04/06/2022 16:07:56 Tinnitus of left ear 2483985697 106 H93.12 Temporoman dibular joint disorder 46140958 M26.609 you can use both ibuprofen and [...] the area hurts more 2 hours after. [id number] Sheri Mata MD , [facility], [address] [place] [address] 06/18/2022 13:48:25 06/18/2022 14:18:13 Uncontrolled type 2 diabetes mellitus 309041976 E11.65 stressed importance of controllin g sugars or wounds will not healat risk of losing toes if we arent aggressive check a1c today, will call pt with results and possible med adjustment Diabetic foot ulcer 3710 29613 E13.621 start abx, refer to wound caresee above [id number] MD CLAUDE Alonzo, [facility], [address] [place] [address] 07/22/2022 14:28:48 07/22/2022 15:55:20 Uncontrolled type 2 diabetes mellitus 769198128 E11.65 stressed importance of controllin g sugars or wounds will not healat risk of losing toes if we arent aggressive last a1c 10.7contin ue meds, pt aggressive ly managingre peat a1c september, see me ronal grace message sent with info on nutrition consult name and number Diabetic foot ulcer 3710 89104 E13.621 slowly improvemen tcontinue with wound care [id number] Sheri Mata MD , [facility], [address]ICE [address] [place] [address] 08/10/2022 07:40:22 08/10/2022 08:42:21 Uncontrolled type 2 diabetes mellitus 364836334 E11.65 stressed importance of controllin g sugars [...] per month Neuropathy due to diabetes mellitus 235044433 E11.40 as above Diabetic foot ulcer 3710 05802 E13.621 slowly improvemen tcontinue with wound careMRI pending to rule out osteomyeli tis [id number] Sheri Mata MD FP, [facility], [address] [place] [address] 09/21/2022 14:38:30 09/21/2022 16:20:39 Essential hypertension 85210596 I10 well controlled on med Uncontroll ed type 2 diabetes mellitus 329037046 E11.65 a1c down to 7.9!contin ue diet, exercisewi ll back down lantus to avoid lows overnightc ontinue humalogrep eat labs, see me 3 monthsi will research berberine for safety Diabetic foot ulcer 3710 08643 E13.621 slowly improvemen tcontinue with wound care Health Concerns Section Related Observation LastModified by Organization Detai ls LastModified Time None Recorded Concern Status LastModified by Organization Details LastModified Time None Recorded Advance Directives Directive N: Payers Insurance Date Sequence Insurance Name Policy Number Policy Orozco Covered Member ID Orozco Member ID Guarantor Name 12/28/2022 1 [facility] (O) [id number] Wilberto Aquino [facility] [id number] Wilberto Aquino [facility] 07/08/2015 1 *SELF PAY* Tata patricia Aquino [facility] 12/28/2022 2 [place] [id number] Wilberto Aquino [facility] [id number] Wilberto Aquino [facility] 12/28/2022 1 [facility] [id number] Wilberto Aquino [facility] [id number] Wilberto Aquino [facility] 12/28/2022 1 [facility] [id number] Wilberto Aquino [facility] [id number] [place] [facility] 12/28/2022 1 [place] Wilberto Aquino [facility] [id number] Wilberto Conway 12/28/2022 1 [facility] [id number] Wilberto Conway [id number] Wilberto Conway Notes Date Note Type Note Provider Name and Address Organization Details Recorded Time 04/06/2022 text/html Pt reports L artur e ear and jaw pain ongoing about 2 wks, feels like he can hear constant humming in L ear, Denies drainage or swelling. Pain is worse when he opens his mouth. Mary Kate Weir MD [address] [place] [address], [phone], [facility] 04/06/2022 11:43:41 06/18/2022 text/html Foot issues. Big toe on both feet. Calluses. Blood blisters. presents to discuss feet. Has to wear steel toed shoes at work and now toes have painful blisters. Not checkin sugars. Taking meds as listed Sheri Maat MD [address] [place] [address], [phone], [facility] 06/18/2022 14:22:38 07/22/2022 text/html Patient presents to the office today for f/u on sore on foot. for followup foot ulcer and DM. Sugars mostly under 150. Taking meds as listed. WOrking hard on controlling.Seeing wound care, foot healing slowlyHasnt heard about nutrition consult Sheri Mata MD [address] [place] [address], [phone], [facility] 07/22/2022 14:59:41 08/10/2022 text/html Patient presents [...] 3-4 times per day Sheri Mata MD [address] [place] [address], [phone], [facility] 08/10/2022 08:23:38 09/21/2022 text/html for followup DM. Working very hard. Taking 50 lantus HS and 30 humalog with meals. Has been having lows in middle of night.Seeing wound care for foot. Had a setback, Was casted and caused infection, on two abx nowread about berberine, herb used in [place] for DM, wonders if can tryhad colon last week, normal Sheri Mata MD [address] [place] [address], [phone], [facility] 09/21/2022 15:30:10
== END 2024-12-08 13:23 | disposition home or self-care (01) ==
LOC: HO.HMCH 12:38
PROVIDERS: PCP Internal Medicine; Visit Provider Internal Medicine
DX: Z95.1 Presence of aortocoronary bypass graft (principal); I25.10 Atherosclerotic heart disease of native coronary artery without angina pectoris; E78.00 Pure hypercholesterolemia, unspecified; E11.9 Type 2 diabetes mellitus without complications

== ENCOUNTER → 2024-12-08 12:37 | Outpatient (BNVA) | payer OTHER, SELFPAY | PROVIDERS: PCP Internal Medicine; Visit Provider Internal Medicine | DX: Z13.89 Encounter for screening for other disorder (principal) ==

== ENCOUNTER → 2025-01-02 12:37 | Outpatient (REF) | payer OTHER, SELFPAY ==
--- NOTE | 2025-01-02 12:39 | CA_ITS ---
Transthoracic Echocardiogram Patient (Last, First, Middle): Wilberto Conway A Gender: Male Date of : 1965 Age: 59 Procedure Date: 01/02/2025 Procedure Type: Transthoracic Echocardiogram Location: OP Height: 177.8 cm Weight: 90.72 kg BSA: 2.09 m2 Heart Rate: 63 bpm BP: 122 / 62 mmHg Postdoctoral Research Associate: YURI Referring MD: Santi George MD Symptoms: I25.10 - Atherosclerotic heart disease of [place] coronary artery without... Study Quality: Adequate w contrast ECG Rhythm: Sinus Conclusions: - The left ventricular systolic function is normal. The calculated ejection fraction is 67% by biplane method. - No obvious valvular pathology seen on this study. Findings Procedure Information Contrast agent, definity, is being given per protocol without apparent complications. Left Ventricle Normal left ventricular cavity size. The left ventricular systolic function is normal. The calculated ejection fraction is 67% by biplane method. There is no evidence of regional wall motion abnormalities. Diastolic function is normal for age. There is mild septal asymmetric hypertrophy. Right Ventricle Moderately increased right ventricular cavity size. There is mildly decreased right ventricular systolic function. Atria Both atria are normal in size. Aortic Valve There is a normal trileaflet aortic valve. There is mild calcification of the aortic valve. There is no aortic valve stenosis. There is no aortic valve regurgitation. Mitral Valve The mitral valve appears normal. There is trace mitral valve regurgitation. There is no mitral valve stenosis. Pulmonic Valve The pulmonic valve is likely normal. Tricuspid Valve Normal tricuspid valve structure. There is trace tricuspid valve regurgitation. There is no evidence of pulmonary hypertension. Great Vessels The aortic arch is normal in size. Top normal ascending aortic size at 3.8 cm. Venous The inferior vena cava was not well visualized. Pericardium/Pleural There is no evidence of pericardial effusion. Prior Study Comparison No significant change compared to prior study dated: 07/04/2024. Recommendations, Care & Conclusions No obvious valvular pathology seen on this study. Measurements 2D Linear Measurements IVSd: 1.20 0.6-0.9/0.6-1.0 cm LVIDd: 5.17 3.9-5.3/4.2-5.9 cm LVIDd Index: 2.47 2.4-3.2/2.2-3.1 cm/m2 LVIDs: 3.05 2.0-3.6 cm LVPWd: 1.02 0.7-1.1 cm LA Diam: 4.60 2.7-3.8/3.0-4.0 cm LAIDs Index: 2.20 1.5-2.3 cm/m2 LV Mass: 276.01 67-162/88-224 g LV Mass Index: 132.06 43-95/49-115 g/m2 LVOT Diam: 2.10 3.0+(-)1.3 cm 2D Systolic Function EF 4C: 72.60 >55% EF 2C: 61.60 >55% EF BiP: 67.10 >55% Mitral Valve MV Pk E: 1.01 MV PK A: 0.42 MV Decel Time: 161.00 E/A: 2.40 E'Lateral: 14.30 E'Medial: 5.77 E/E' Med: 17.50 E/E' Lat: 7.10 PHT: 47.00 MVA PHT: 4.68 Decel [place]: 6.27 Aortic Valve AoV Pk Daniel: 1.25 AoV Pk Grad: 6.00 LUIS FERNANDO: 3.00 LVOT LVOT Pk Daniel: 1.12 LVOT Mn Daniel: 0.81 LVOT VTI: 0.22 LVOT Pk Grad: 5.00 LVOT Mn Grad: 3.00 LVOT Diam: 2.10 LVOT Area: 3.46 Diastolic Function MV Pk E: 1.01 MV Pk A: 0.42 E/A: 2.40 E'Medial: 5.77 E/E' Med: 17.50 E' Laterial: 14.30 E/E' Lat: 7.10 Right Ventricle TAPSE (mm): 10.10 TVS' Daniel: 9.14 Great Vessels Aorta Sinus of Valsalva: 3.50 2.0-3.5 cm Ao Asc: 3.80 2.1-3.4 cm Ao Arch: 3.10 Pulmonary Veins Pulm Vein S/D 1.00 Pulmonary Valve PV Pk Daniel: 0.91 Peak PV Grad: 3.00 Updated in Other Vendor System with Status of Final Santi George MD electronically signed on 01/04/2025 11:08:44 AM with status of Final
--- OUTSIDE RECORDS SUMMARY | 2025-01-02 13:37 | XMS_ITS | Encounter Summary ---
Author Organization [facility] Address [address] [place] [address] Phone Care Team Providers Care Plasterer Helper Name Role Phone Wallace Sweet MD Primary Care Provider [phone] Encounter Details Date Type Department Care Team (Latest Contact Info) Description 09/02/2017 Transcribe Orders [facility] Laboratory [address] [place] [id number] Giovanni Kraus MD [address] [place] [id number] [email or web address] Steatohepatitis (Primary Dx) Social History Tobacco Use Types Packs/Day Years Used Date Smoking Tobacco: Never Smokeless Tobacco: Never Alcohol Use Standard Drinks/Week Comments Not Asked 1 (1 standard drink = 0.6 oz pur e alcohol) Sex and Gender Information Value Date Recorded Sex Assigned at Not on file Legal Sex Male 9:41 PM EDT Gender Identity Not on file Sexual Orientation Not on file documented as of this encounter Plan of Treatment Not on file documented as of this encounter Results * (ABNORMAL) Comprehensive metabolic panel (09/02/2017 3:05 PM EDT) SODIUM 137 133 - 146 mmol/L [facility] POTASSIUM 4.5 3.3 - 5.1 mmol/L [facility] CHLORIDE 98 96 - 108 mmol/L [facility] CO2 26 21 - 35 mmol/L [facility] BUN 14 6 - 19 mg/dL [facility] CREATININE 0.70 0.5 - 1.5 mg/dL [facility] GLUCOSE 255(H) 70 - 99 mg/dL [facility] ALBUMIN 4.8 3.9 - 4.8 g/dL [facility] TOTAL PROTEIN 7.7 6.5 - 8.0 g/dL [facility] CALCIUM 9.5 8.4 - 10.3 mg/dL [facility] ALKALINE PHOSPHATASE 90 39 - 117 U/L [facility] TOTAL BILIRUBIN 0.6 0.0 - 1.2 mg/dL [facility] AST 20 0 - 37 U/L [facility] ALT 28 0 - 40 U/L [facility] GLOBULIN 2.9 1 - 4.8 g/dL [facility] EGFR 109 >59 mL/min/1.7 3m2 [facility] Comment:If patient is black, multiply result by 1.159. The eGFR calculation has changed from the MDRD equation to the CKD-EPI equation as of August 17, 2017. ANION GAP 18 10 - 20 mmol/L [facility] Blood 09/02/2017 3:05 PM EDT 09/02/2017 3:08 PM EDT us Giovanni Kraus MD LAB BLOOD ORDERABLES Final Re sult [address] [id number] * CBC (09/02/2017 3:05 PM EDT) WBC 8.19 3.40 - 11.20 K/uL [facility] RBC 5.29 4.50 - 5.50 M/uL [facility] HGB 15.4 13.0 - 17.0 g/dL [facility] HCT 46.1 40.0 - 51.0 % [facility] PLT 311 130 - 400 K/uL [facility] MCV 87.1 79.0 - 98.0 [facility] MCH 29.1 27.0 - 34.8 pg [facility] MCHC 33.4 31.5 - 36.0 g/dL [facility] RDW 12.9 10.8 - 14.6 % [facility] MPV 10.8 9.4 - 12.4 [facility] NRBC 0.00 /100 WBCs [facility] ABSOLUTE NRBC 0.00 K/uL [facility] Blood 09/02/2017 3:05 PM EDT 09/02/2017 3:08 PM EDT us Giovanni Kraus MD LAB BLOOD ORDERABLES Final Re sult Performing Organization Address City/State/[facility] Co de Phone Number [facility] [address] [place] [address] documented in this encounter Visit Diagnoses Diagnosis Steatohepatitis- Primary Other chronic nonalcoholic liver disease documented in this encounter Care Teams Plasterer Helper Relationship Specialty Start Date End Date Wallace Sweet MD [email or web address] PCP - General Family Medicine 09/02/17 documented as of this encounter Additional Source Comments The information contained in this document represents components of the legal health record. It is not the complete legal health record.[facility]
--- OUTSIDE RECORDS SUMMARY | 2025-01-02 13:38 | XMS_ITS | Data Portability ---
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 Lab HbA1c (hemoglobin A1c), blood [address] [facility], [address] [place] [address], [address], 3 11:02:52 microalbumi n/creatinin e, ratio panel, urine [address] [facility], [address] [place] [address], [address], 3 12:27:09 Referral wound care referral - DM foot ulcers, both great toes 2022 023 [email or web address] Hammonds [facility], [address] [place] [address] [place], [address], 3 10:12:51 nutritionis t/dietitian referral 2022 023 [email or web address] Suze Whipple, [address] [place] [address] [place], [address], 3 10:49:02 otolaryngol ogist referral - tinnitus and TMJ same side; please eval and Rx as needed 2021 022 [email or web address] Dunia Burkett MD, [address] [place], [address], 11:14:12 Procedures None recorded. Surgeries None recorded. Imaging None recorded. Medication Orders cephalexin 500 mg tablet 2022 023 [facility], [address] [place] [address], [address], 14:38:26 Patient TargetsNo targets recorded. Patient InstructionsNo instructions recorded. 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 METAB OLIC PANEL glucose 262 mg/dL 70-100 high Not Available [address], [address], 06/19/2022 11:00:07 06/18/19 23 06/19/2022 COMP. METAB OLIC PANEL BUN 13 mg/dL 7-18 Not Available [address], [address], 06/19/2022 11:00:07 06/18/19 23 06/19/2022 COMP. METAB OLIC PANEL creatinine 1.0 mg/dL 0.8-1. 3 Not Available [address], [address], 06/19/2022 11:00:07 06/18/19 23 06/19/2022 COMP. METAB OLIC PANEL B/C 13.0 ratio Not Available [address], [address], 06/19/2022 11:00:07 06/18/19 23 06/19/2022 COMP. METAB [...] be used in pregn valentina. Not Available [address], [address], 06/19/2022 11:00:07 06/18/19 23 06/19/2022 COMP. METAB OLIC PANEL sodium 140 mmol/ L 136-14 5 Not Available [address], [address], 06/19/2022 11:00:07 06/18/19 23 06/19/2022 COMP. METAB OLIC PANEL potassium 5.0 mmol/ L 3.5-5. 1 Not Available [address], [address], 06/19/2022 11:00:07 06/18/19 23 06/19/2022 COMP. METAB OLIC PANEL chloride 101 mmol/ L 96-107 Not Available [address], [address], 06/19/2022 11:00:07 06/18/19 23 06/19/2022 COMP. METAB OLIC PANEL anion gap 7.6 5.0-15 .0 Not Available [address], [address], 06/19/2022 11:00:07 06/18/19 23 06/19/2022 COMP. METAB OLIC PANEL CO2 31 mmol/ L 21-32 Not Available [address], [address], 06/19/2022 11:00:07 06/18/19 23 06/19/2022 COMP. METAB OLIC PANEL calcium 9.2 mg/dL 8.5-10 .3 Not Available [address], [address], 06/19/2022 11:00:07 06/18/19 23 06/19/2022 COMP. METAB OLIC PANEL total protein 7.2 g/dL 6.4-8. 2 Not Available [address], [address], 06/19/2022 11:00:07 06/18/19 23 06/19/2022 COMP. METAB OLIC PANEL albumin 4.2 g/dL 3.4-5. 0 Not Available [address], [address], 06/19/2022 11:00:07 06/18/19 23 06/19/2022 COMP. METAB OLIC PANEL globulin 3.0 g/dL Not Available [address], [address], 06/19/2022 11:00:07 06/18/19 23 06/19/2022 COMP. METAB OLIC PANEL A/G 1.4 ratio 0.8-2. 0 Not Available [address], [address], 06/19/2022 11:00:07 06/18/19 23 06/19/2022 COMP. METAB OLIC PANEL total bilirubin 0.80 mg/dL 0.00-1 .00 Not Available [address], [address], 06/19/2022 11:00:07 06/18/19 23 06/19/2022 COMP. METAB OLIC PANEL AST 20 U/L 0-37 Not Available [address], [address], 06/19/2022 11:00:07 06/18/19 23 06/19/2022 COMP. METAB OLIC PANEL ALT 37 U/L 6-63 Not Available [address], [address], 06/19/2022 11:00:07 06/18/19 23 06/19/2022 COMP. METAB OLIC PANEL alk. phos. 117 U/L 50-136 Not Available [address], [address], 06/19/2022 11:00:07 06/18/19 23 06/19/2022 LIPID PANEL cholesterol 191 mg/dL <200 mg/dl Maty able 200-2 39 mg/dl Borde rline High >240 mg/dl High Not Available [address], [address], 06/19/2022 11:00:09 06/18/19 23 06/19/2022 LIPID PANEL triglyceride s 289 mg/dL high LIPS= Speci men Sligh tly Lipem ic. Chem Resul ts may be effec nicole. <150 mg/dL Karley l 150-1 99 mg/dL Borde rline High 200-4 99 mg/dL High >500 mg/dL Very High Not Available [address], [address], 06/19/2022 11:00:09 06/18/19 23 06/19/2022 LIPID PANEL direct HDL 54 mg/dL <40 mg/dl - Major Risk for CHD >60 mg/dl - Negat garry Risk for CHD Not Available [address], [address], 06/19/2022 11:00:09 06/18/19 23 06/19/2022 DIREC T [...] r is not neces audrey. Not Available [address], [address], 06/19/2022 11:00:11 06/18/19 23 06/19/2022 HGB A1C [...] furth er confi rmati on Not Available [address], [address], 06/19/2022 12:22:00 06/18/19 23 06/19/2022 HGB A1C estimated average glucose 260.4 mg/dL Not Available [address], [address], 06/19/2022 12:22:00 09/13/19 23 09/14/2022 HGB A1C [...] furth er confi rmati on Not Available [address], [address], 09/14/2022 11:02:52 09/13/19 23 09/14/2022 HGB A1C estimated average glucose 180.0 mg/dL Not Available [address], [address], 09/14/2022 11:02:52 09/13/19 23 09/14/2022 MICRO ALBUM IN/CR EATIN INE RATIO PANEL , URINE microalbumin 8.0 mg/L 1.3-20 .0 Not Available [address], [address], 09/14/2022 12:27:09 09/13/19 23 09/14/2022 MICRO ALBUM IN/CR EATIN INE RATIO PANEL , URINE creatinine urine 100.6 mg/dL 30.0-1 25.0 Not Available [address], [address], 09/14/2022 12:27:09 09/13/19 23 09/14/2022 MICRO ALBUM IN/CR EATIN INE RATIO PANEL , URINE microalb/cre at ratio 8.0 mg/g_ creat 0.0-29 .0 Not Available [address], [address], 09/14/2022 12:27:09 06/10/20 22 06/10/2022 US abdom [...] wnl IVC: appear s wnl WALLACE SWEET [facility] [address] [facility], [place], [address], 06/11/2022 07:07:36 10/14/1909/17/2022 colon oscop y proce dure (PROC ) No observ ation record ed. BARCODE Not Available 2022 11:32:22 Result Notes None recorded. Problems Name Problem SNOMED Code Status Onset Date Resolution Date Notes Provider Name and Address Organization Details Recorded Time Essential hypertensi on 69982534 Active Not Available [facility] 3 21:02:46 Excessive cerumen in ear canal 270505795 Active Not Available [facility] 3 21:02:46 Effusion of joint of shoulder region 48589542 Completed 03/27/2014 Wallace Sweet MD [address] [place] [address], [address] , [facility] 4 05:26:27 Pain of shoulder region 88792504 Completed 05/03/2013 Not Available [facility] 3 02:01:00 Benign essential hypertensi on 9165244 Completed 01/19/2012 Not Available [facility] 3 03:03:47 On examinatio n - a rash Completed 05/03/2013 Not Available [facility] 3 02:00:46 Type 2 diabetes mellitus without complicati on 436586686 Completed 03/27/2014 Wallace Sweet MD [address] [place] [address], [address] , [facility] 4 05:26:43 Impacted cerumen 93993666 Completed 200005/03/2013 Not Available [facility] 3 02:02:10 Otogenic otalgia 06859790 Completed 200105/03/2013 Not Available [facility] 3 02:03:18 Hearing loss 54781857 Active 2001 Not Available [facility] 3 21:02:46 Temporoman dibular joint disorder 85885101 Completed 200103/27/2014 Wallace Sweet MD [address] [place] [address], [address] , [facility] 4 05:26:43 Elevated blood-pres sure reading without diagnosis of hypertensi on 061665954 Completed 200103/27/2014 Wallace Sweet MD [address] [place] [address], [address] , [facility] 4 05:26:27 Carpal tunnel syndrome 07730089 Active 2001 Not Available [facility] 3 21:02:46 Scrotal varices Active 2001 Not Available [facility] 3 21:02:46 Pure hyperchole sterolemia 041067198 Completed 200203/27/2014 Wallace Sweet MD [address] [place] [address], [address] , [facility] 4 05:26:27 Internal hemorrhoid s 11827507 Completed 200205/03/2013 Not Available [facility] 3 02:03:12 Abdominal pain 29544256 Completed 200205/03/2013 Not Available [facility] 3 02:01:20 Sprain of knee and leg Completed 200205/03/2013 Not Available [facility] 3 02:03:04 Type 2 diabetes mellitus without complicati on 616969561 Completed 200601/05/2012 Not Available [facility] 3 03:03:47 Mixed hyperlipid emia 428427891 Active 2006 Not Available [facility] 3 21:02:46 Renal disorder due to type 2 diabetes mellitus 931126253 Active 2006 Not Available [facility] 3 21:02:46 Obesity 183966586 Active 2006 Not Available [facility] 3 21:02:46 Diabetes mellitus 92055255 Completed 200603/27/2014 Wallace Sweet MD [address] [place] [address], [address] , [facility] 4 05:26:27 Uncontroll ed type 2 diabetes mellitus 443867083 Active 2007 Not Available [facility] 3 21:02:46 Disorder of bursa of shoulder region 71353126 Completed 200705/03/2013 Not Available [facility] 3 02:04:09 Medial epicondyli tis 53754846 Completed 200705/03/2013 Not Available [facility] 3 02:04:00 Pain of shoulder region 63590048 Completed 200707/29/2008 Not Available [facility] 3 03:03:47 Impotence of organic origin Active 2007 Not Available [facility] 3 21:02:46 Anxiety 14086382 Active 2016 Not Available [facility] 3 21:02:46 Neuropathy due to diabetes mellitus 658038407 Active 2018 Not Available [facility] 3 21:02:46 Notes:Some problems listed i n Document: #[id number] could not be added to this patient's chart. Please review this document and add these problems to the patient's chart manually as needed. Problem Notes None recorded. Procedures Surgical History Date Name Laterality Status Provider Name and Address Organization Details Recorded Time 01/09/20 22 Fundus Photography completed Erna Villalpando, OD [address] [place] [address], [phone], [facility] 01/09/2022 13:35:41 04/25/20 21 Fundus Photography completed Erna Villalpando, OD [address] [place] [address], [phone], [facility] 04/25/2021 09:33:54 04/25/20 21 Optical Coherence Tomography (Retina) completed Erna Villalpando, OD [address] [place], [address], [facility] 04/25/2021 09:34:09 05/23/20 19 Cerumen Removal - Irrigation/Lavag e completed Anabelle Bragg [facility] 05/23/2019 11:33:23 10/06/19 19 Cerumen Removal - Irrigation/Lavag e completed Yvonne Edwards [facility] 10/05/2018 14:20:07 01/08/20 18 Cerumen Removal - Irrigation/Lavag e completed Akua Pizano LPN [facility] 01/07/2018 16:13:04 07/19/19 18 Cerumen Removal - Irrigation/Lavag e completed aMry Lott LPN [facility] 07/19/2017 11:26:34 11/25/19 17 Glucose Meter Teaching completed Akua iPzano LPN [facility] 11/24/2016 09:44:01 09/20/19 17 Cerumen Removal - Irrigation/Lavag e completed Karina Li [facility] 09/19/2016 13:28:46 12/17/19 16 Cerumen Removal completed Michelle Mary LPN [facility] 12/17/2015 11:32:24 03/07/20 15 Cerumen Removal completed Viri Gomez RN [facility] 03/07/2015 17:46:53 06/06/20 14 Cerumen Removal completed Shannan Lacy RN [facility] 06/06/2014 09:00:42 10/06/19 13 Cerumen Removal completed Michelle Mary LPN [facility] 10/05/2012 11:59:21 04/14/20 12 Other (specify) completed Domenic Collazo MD [address] [place] [address], [address], [facility] 04/04/2014 14:03:38 01/19/20 12 Cerumen Removal completed Cate Sims RN [facility] 01/19/2012 12:04:10 12/22/19 12 Treatment and Advice completed Ammy Chou, OT [address] [place] [address], [address], [facility] 12/22/2011 13:00:06 08/11/19 11 Cerumen Removal completed Zo Johnston LPN [facility] 08/11/2010 16:18:17 10/15/19 10 Cerumen Removal completed Zo Johnston LPN [facility] 10/14/2009 11:03:38 08/08/19 10 Aspiration Major Joint/Bursa completed Wallace Sweet MD [address] [place] [address], [address], [facility] 08/08/2009 12:04:47 06/14/19 10 Other (specify) completed Domenic Collazo MD [address] [place] [address], [address], [facility] 04/04/2014 14:03:38 12/20/19 09 Cerumen Removal completed Marge Richey NP [address] [place] [address], [address], [facility] 12/19/2008 09:54:31 01/01/19 84 Appendectomy completed Doemnic Collazo MD [address] [place], [address], [facility] 04/04/2014 14:03:38 06/14/18 71 Other (specify) completed Domenic Collazo MD [address] [place], [address], [facility] 04/04/2014 14:03:38 Imaging Results None recorded. Procedure Notes None recorded. Medical Equipment None Reported. Allergies Allergen ID Allergen Name Allergen Category Reaction Reaction Severity Criticality Documentation Date Start Date Code Code System Note Provider Name and Address Organization Details Recorded Time Trulicity medicatio n abdominal pain moderate Not available 03/22/2020 20938 96 RxNorm Jumana Johnson MA [facility] 11:01:03 Medications Name Sig Start Date Stop [...] in Arterial blood by Pulse oximetry Systolic And Diastolic Provider Name and Address Organization Details Last Updated DateTime 3 177.8 cm 31.7 kg/m2 634577. 91 g 98.1 [degF] 90 /min 97 % 97 % 140/66 mm[Hg] Nadira Borges, [facility] 3 14:03:45 Date Recorded Body height Heart rate Oxygen saturation Oxygen saturation in Arterial blood by Pulse oximetry Systolic And Diastolic Provider Name and Address Organization Details Last Updated DateTime 3 177.8 cm 80 /min 97 % 97 % 128/60 mm[Hg] Gloria Crockett [facility] 3 14:42:18 Date Recorded Body weight Body temperature Heart rate Respiratory rate Oxygen saturation Oxygen saturation in Arterial blood by Pulse oximetry Systolic And Diastolic Provider Name and Address Organization Details Last Updated DateTime 3 71188.4 7 g 97.2 [degF] 88 /min 16 /min 96 % 96 % 144/69 mm[Hg] Gloria Crockett [facility] 3 15:25:48 Date Recorded Body height Heart rate Oxygen saturation Oxygen saturation in Arterial blood by Pulse oximetry Systolic And Diastolic Provider Name and Address Organization Details Last Updated DateTime 3 177.8 cm 82 /min 96 % 96 % 112/60 mm[Hg] Gloria Crockett [facility] 3 08:07:48 Date Recorded Body height Body mass index (BMI) Body weight Systolic And Diastolic Provider Name and Address Organization Details Last Updated DateTime 09/21/2022 177.8 cm 32.7 kg/m2 336413.06 g 128/64 mm[Hg] Gloria Crockett [facility] 09/21/2022 15:11:54 Date Recorded Body height Heart rate Body temperature Body mass index (BMI) Body weight Systolic And Diastolic Provider Name and Address Organization Details Last Updated DateTime 2 177.8 cm 84 /min 98.1 [degF] 31.1 kg/m2 33342.7 5 g 136/74 mm[Hg] Socorro Mckeon [facility] 2 11:09:57 Social History Question Answer Notes LastModified by Organizat ion Details LastModified Time Tobacco Smoking Status Never Smoker Not Available [facility] 2011 04:53:49 Do You Have An Advance [...] 09/01/2016 DSME Plan Status In Progress - clukas Infor mation not available 02/10/2012 Diabetes Ed Classes Discussed Patient Not Appropriate Information not available 05/04/2019 Marital Status DBA_PATCH_ 11 [id number] Information not available 2011 Mosquito Repellent Used Routinely No When He Knows He Will Need It Information not available 11/07/2008 What Was The Date Of Your Most Recent Tobacco Screening? 09/21/2022 [email or web address] Information not available 09/21/2022 How Many Children [...] other forms of tobacco or nicotine? No [email or web address] Information not available 07/22/2022 What is your level of alcohol consumption? Moderate 1-2 every 2-3 weeks [email or web address] Information not available 07/22/2022 Do you or have you ever used smokeless tobacco? 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[employer] Information not available 07/28/2012 Do [...] Td(adult) unspecified formulation 7 completed Not Available [facility] 10/01/2022 21:02:47 influenza, unspecified formulation 7 completed Not Available [facility] 10/01/2022 21:02:47 pneumococcal polysaccharide PPV23 7 completed Not Available [facility] 10/01/2022 21:02:47 influenza, unspecified formulation 7 completed Not Available [facility] 10/01/2022 21:02:47 influenza, unspecified formulation 8 completed Not Available [facility] 10/01/2022 21:02:47 Influenza, split virus, quadrivalent, PF 3 completed Not Available [facility] 07/01/2019 02:26:42 Influenza, split virus, trivalent, preservative 4 completed Not Available [facility] 10/01/2022 21:02:47 Influenza, split virus, quadrivalent, PF 9 completed Not Available [facility] 07/01/2019 02:38:00 Tdap 2 completed Wallace Sweet MD [address] [place] [address], [address], [facility] 12/02/2021 13:46:50 COVID-19, mRNA, LNP-S, PF, 30 mcg/0.3 mL dose 1 completed Not Available [facility] 10/01/2022 21:02:47 COVID-19, mRNA, LNP-S, PF, 30 mcg/0.3 mL dose 1 completed Not Available [facility] 10/01/2022 21:02:47 Past Encounters Encounter ID Performer Location Encounter Start Date Encounter Closed Date Diagnosis/Indication Diagnosis SNOMED-CT Code Diagnosis ICD10 Code Diagnosis Note [id number] POORNIMA Willis , [facility], [address] [place] [address] 10/27/2000 10:45:00 07/04/2008 02:02:29 [id number] TREATMENT NURSE [facility] FP, [facility], [address] [place] [address] 11/25/2001 10:38:36 07/04/2008 02:02:29 [id number] Akua Cerda NP , [facility], [address] [place] [address] 11/22/2001 12:58:05 07/04/2008 02:02:29 [id number] Akua Cerda NP , [facility], [address] [place] [address] 02/17/2002 10:16:06 07/04/2008 02:02:29 [id number] STUART Lopez, [facility], [address] [place] [address] 04/11/2002 10:38:32 07/04/2008 02:02:29 [id number] MD CLAUDE Bazan, [facility], [address] [place] [address] 05/18/2002 08:54:31 07/04/2008 02:02:29 [id number] [facility] - [address] [address] 06/23/2002 08:25:25 07/04/2008 02:02:29 [id number] Akua Cerda NP , [facility], [address] [place] [address] 10/27/2002 10:38:56 07/04/2008 02:02:29 [id number] MD CLAUDE Gabriel, [facility], [address] [place] [address] 12/04/2002 14:46:36 07/04/2008 02:02:29 [id number] [facility] - [facility] [address] [place] [address] 12/04/2002 00:00:00 07/04/2008 02:02:29 [id number] MD CLAUDE Bazan, [facility], [address] [place] [address] 12/19/2002 16:00:41 07/04/2008 02:02:29 [id number] Akua Cerda NP , [facility], [address] [place] [address] 05/21/2003 13:45:19 05/21/2003 17:33:03 [id number] Mani Padron MD , [facility], [address] [place] [address] 11/01/2003 16:14:38 11/02/2003 10:55:10 [id number] MD CLAUDE Bazan, [facility], [address] [place] [address] 06/09/2004 09:12:28 06/09/2004 14:35:16 [id number] POORNIMA Peralta, [facility], [address] [place] [address] 07/17/2005 09:52:58 07/17/2005 15:36:35 [id number] STUART Lopez, [facility], [address] [place] [address] 07/05/2006 10:47:49 07/05/2006 15:09:32 [id number] [facility] - [address] [address] 07/06/2006 07:27:25 07/06/2006 07:27:29 [id number] STUART Lopez, [facility], [address] [place] [address] 07/09/2006 13:58:02 07/09/2006 15:28:32 [id number] [facility] - [address] [address] 07/09/2006 14:56:53 07/09/2006 14:57:19 [id number] STUART Lopez, [facility], [address] [place] [address] 07/16/2006 00:00:00 07/04/2008 02:02:29 [id number] STUART Lopez, [facility], [address] [place] [address] 07/23/2006 07:25:57 07/23/2006 11:32:05 [id number] FP TREATMENT NURSE [facility] FP, [facility], [address] [place] [address] 07/26/2006 13:43:23 07/26/2006 16:17:18 [id number] [facility] - [address] [address] 08/09/2006 07:13:41 08/09/2006 07:13:45 [id number] STUART Lopez, [facility], [address] [place] [address] 08/27/2006 08:04:39 08/27/2006 11:15:54 [id number] STUART Lopez, [facility], [address] [place] [address] 08/24/2006 08:24:16 09/13/2006 14:24:02 [id number] MD CLAUDE Bazan, [facility], [address] [place] [address] 12/21/2006 14:50:21 12/23/2006 08:29:08 [id number] [facility] - [address] [address] 12/24/2006 07:43:32 12/24/2006 07:43:36 [id number] [facility] - [address] [address] 03/16/2007 07:12:11 03/16/2007 07:12:16 [id number] MD CLAUDE Bazan, [facility], [address] [place] [address] 03/22/2007 15:01:47 07/04/2008 02:02:29 [id number] STUART Lopez, [facility], [address] [place] [address] 05/23/2007 09:05:39 07/04/2008 02:02:29 [id number] [facility] - [address] [address] 05/27/2007 07:46:56 05/27/2007 07:47:00 [id number] STUART Lopez, [facility], [address] [place] [address] 07/22/2007 10:48:34 07/04/2008 02:02:29 [id number] STUART Reynolds, [facility], [address] [place] [address] 12/22/2007 14:13:35 07/04/2008 02:02:29 [id number] [facility] - [address] [address] 12/21/2007 07:18:47 12/21/2007 07:18:53 [id number] Wilberto Hopson , PT Physical Therapy, [address] [address] 12/28/2007 16:24:57 12/29/2007 09:55:50 [id number] MD CLAUDE Bazan, [facility], [address] [place] [address] 01/16/2008 13:54:48 07/04/2008 02:02:29 [id number] Wilberto Hopson , PT Physical Therapy, [facility] [address] [place] [address] 01/11/2008 16:24:51 01/24/2008 14:08:00 [id number] MD CLAUDE Bazan, [facility] [address] [place] [address] 02/22/2008 08:46:10 07/04/2008 02:02:29 [id number] MD CLAUDE Fraser, [facility], [address] [place] [address] 02/27/2008 10:14:54 07/04/2008 02:02:29 [id number] [facility] - [address] [address] 04/19/2008 07:02:00 04/19/2008 07:02:05 [id number] STUART Lopez, [facility], [address] [place] [address] 05/03/2008 09:17:10 07/04/2008 02:02:29 [id number] Brandon Castano, [facility], [address] [place] [address] 05/08/2008 10:28:13 07/04/2008 02:02:29 [id number] STUART Lopez, [facility], [address] [place] [address] 05/17/2008 10:44:38 07/04/2008 02:02:29 [id number] MD CLAUDE Gallardo, [facility], [address] [place] [address] 07/26/2008 10:36:24 07/30/2008 11:01:51 [id number] MD CLAUDE Bazan, [facility] [address] [place] [address] 11/07/2008 10:33:14 11/12/2008 14:37:51 [id number] [facility] , [facility] [address] [place] [address] 11/07/2008 11:51:45 11/09/2008 11:42:29 [id number] STUART Paredes, [facility], [address] [place] [address] 12/19/2008 09:10:58 12/19/2008 14:12:15 [id number] MD CLAUDE Bazan, [facility], [address] [place] [address] 02/20/2009 16:27:04 02/21/2009 14:15:54 [id number] [facility] - [address] [address] 10/29/2008 07:04:44 10/29/2008 07:04:54 [id number] [facility], [address] [address] 12/04/2008 08:35:01 12/04/2008 14:08:24 [id number] [facility] - [address] [address] 02/05/2009 08:52:32 02/05/2009 08:52:40 [id number] MD CALUDE Bazan, [facility], [address] [place] [address] 08/08/2009 10:49:48 08/09/2009 11:28:19 [id number] STUART Lopez, [facility], [address] [place] [address] 09/17/2009 10:57:01 09/19/2009 12:48:32 [id number] STUART Lopez, [facility], [address] [place] [address] 10/01/2009 09:16:37 10/01/2009 14:51:25 [id number] Akua Cerda NP , [facility], [address] [place] [address] 10/14/2009 10:06:27 10/14/2009 12:00:02 [id number] Wallace Sweet MD , [facility], [address] [place] [address] 01/16/2010 07:41:39 01/16/2010 12:37:13 [id number] Lauren Khan NP , [facility], [address] [place] [address] 08/11/2010 14:49:16 08/14/2010 13:29:10 [id number] Wallace Sweet MD , [facility], [address] [place] [address] 09/04/2010 11:12:12 09/09/2010 08:33:12 [id number] Wallace Sweet MD , [facility], [address] [place] [address] 01/14/2011 10:09:19 01/14/2011 11:23:50 [id number] Noel Kidd MD , [facility], [address] [place] [address] 04/10/2011 11:50:57 04/13/2011 13:24:56 [id number] Kaye Lindsey PA-C , [facility], [address] [place] [address] 12/22/2011 07:59:48 12/22/2011 14:26:16 [id number] Nicole Brower MD Radiology , [facility] [address] [place] [address] 12/22/2011 08:46:23 12/23/2011 11:15:39 [id number] Ammy Chou, OT Physical Therapy, [facility] [address] [place] [address] 12/22/2011 12:29:23 12/23/2011 07:34:56 [id number] Kaye Lindsey PA-C , [facility], [address] [place] [address] 01/05/2012 08:28:16 01/05/2012 09:29:20 [id number] Ammy Chou, OT Physical Therapy, [address] [address] 01/05/2012 12:21:57 01/05/2012 13:09:59 [id number] Ammy Chou, OT Physical Therapy, [address] [address] 01/14/2012 14:16:39 01/15/2012 07:40:59 [id number] Kaye Lindsey PA-C , [facility], [address] [place] [address] 01/19/2012 07:32:37 01/19/2012 09:15:36 [id number] Cyndi Flores, Ms, Rdn, Ldn, CDE Nutrition -[address] [address] 02/10/2012 08:18:57 02/10/2012 09:08:04 [id number] Wallace Sweet MD , [facility], [address] [place] [address] 07/28/2012 08:56:22 07/28/2012 09:46:12 [id number] JUANIS Farfan , [facility], [address] [place] [address] 10/05/2012 11:05:15 10/05/2012 15:55:29 [id number] Wallace Sweet MD , [facility], [address] [place] [address] 06/13/2013 08:52:36 06/13/2013 09:57:34 Influenza vaccine needed [id number] 106 Mixed hyperlipidemia 738417317 continue to work on diet and exercise as discussed Uncontroll ed type 2 diabetes mellitus 131557953 Benign ess ential hypertension 0664792 continue to work on diet ,exercisea nd lowering salt intake as discussed [id number] JUANIS Law-AIDA , [facility], [address] [place] [address] 08/04/2013 15:13:51 08/07/2013 13:22:35 Impacted cerumen 01890946 irrigated in clinic no complicati ons. [id number] MD CLAUDE Bazan, [facility], [address] [place] [address] 03/26/2014 16:14:43 03/26/2014 16:49:19 Benign essential hypertension 6862333 Mixed hyperlipidemia 790384105 Uncontroll ed type 2 diabetes mellitus 199480554 Renal diso rder due to type 2 diabetes mellitus 982704085 Benign par oxysmal positional vertigo 583569767 [id number] Domenic Collazo MD Endocrino log, [address] [address] 04/04/2014 13:14:50 04/04/2014 15:08:28 Uncontrolled type 2 diabetes mellitus 155392034 -continue metformin 1g 2x/d -stop glyburide, change to glipizide 10mg 2x/d -start victoza 0.6 mg once daily for 1 week; then increase to 1.2 mg once daily Obesity 968621445 Essential hypertension 74456267 -lisinopri l Mixed hyperlipidemia 539041586 -lovastati n [id number] Taisha Johnston Physical Therapy, [address] [address] 04/16/2014 16:18:50 04/17/2014 08:27:41 Benign paroxysmal positional vertigo 739123641 [id number] Taisha Johnston Physical [facility], [address] [address] 2014 12:01:49 2014 13:34:38 Benign paroxysmal positional vertigo 585383947 [id number] Domenic Collazo MD Endocrino log, [address] [address] 05/04/2014 13:01:46 05/04/2014 14:08:08 Uncontrolled type 2 diabetes mellitus 411330865 -continue metformin 1g 2x/d -continue glipizide 10mg 1 x/d, may decrease to 1/2 tab daily if less than 100mg/dL after taking this medicine and then stop if still less than 100mg/dL -continue victoza 1.2 mg subcut once daily, may then decrease and stop if regularly less than 100mg/dL Obesity 585127410 Essential hypertension 95533701 -lisinopri l Mixed hyperlipidemia 769182183 -lovastati n [id number] POORNIMA Peralta FP, [facility], [address] [place] [address] 06/06/2014 08:18:24 06/08/2014 08:28:39 Excessive cerumen in ear canal 507949242 recurrence [id number] Wallace Sweet MD , [facility], [address] [place] [address] 08/13/2014 16:22:39 08/13/2014 17:04:10 Benign essential hypertension 2947548 Mixed hyperlipidemia 675482780 Type 2 sailaja betes mellitus without complication 284142819 [id number] JUANIS Farfan , [facility], [address] [place] [address] 11/14/2014 16:22:50 11/14/2014 16:48:58 Pain in right lower limb 421474949 upper leg, post fall on ice 2-3 months, not fulle recovered, will refer to PT for further evaluation , advised to use ice alternatin g w/heat x 20 m. X 3-4 x/day, Ibuprofen 200 mg 3 tabs TID for the next 7-10d, take w/food, F/U PRN, may need further evaluation w/Orthoped ist, agrees w/plan. [id number] Wallace Sweet MD , [facility], [address] [place] [address] 12/10/2014 16:14:55 12/10/2014 16:41:53 Mixed hyperlipidemia 683492747 Benign ess ential hypertension 0432910 Type 2 sailaja betes mellitus without complication 542587727 Obesity 817214067 [id number] Mar yKate Weir MD , [facility], [address] [place] [address] 03/07/2015 16:40:20 03/08/2015 11:19:32 Lifestyle 969602402 Impacted cerumen 52307158 bilateral impacted cerumen, rinsed out with resolution . [id number] Wallace Sweet MD , [facility], [address] [place] [address] 07/08/2015 08:36:19 07/08/2015 09:15:01 Mixed hyperlipidemia 390521931 E78.2 Benign ess ential hypertension 2966448 I10 Uncontroll ed type 2 diabetes mellitus 812928801 E11.65 Acute situ ational disturbance 818153507 F43.20 Chest pain 69199490 R07. 9 [id number] Wallace Sweet MD , [facility], [address] [place] [address] 10/07/2015 16:18:20 10/07/2015 16:49:45 Benign essential hypertension 9426117 I10 . Mixed hyperlipidemia 267 163982 E78.2 continue to work on diet and exercise as discussed Uncontroll ed type 2 diabetes mellitus 289167375 E11.65 Obesity 257071133 E66.9 Impotence 154988918 N52. 9 [id number] Sarika Rose, RN, BSN, [facility] , [address] [address] 10/16/2015 15:17:49 10/16/2015 16:45:28 Uncontrolled type 2 diabetes mellitus 718644138 E11.65 [id number] JUANIS Law-BC , [facility], [address] [place] [address] 12/17/2015 10:18:10 12/18/2015 10:57:34 Impacted cerumen 48710815 H61.23 irrigated without issue in clinic. [id number] Wallace Sweet MD , [facility], [address] [place] [address] 01/06/2016 15:21:50 01/06/2016 16:18:35 Benign essential hypertension 9988567 I10 Blood pressure at goal Mixed hyperlipidemia 267 085418 E78.2 continue to work on diet and exercise as discussed Uncontroll ed type 2 diabetes mellitus 223754263 E11.65 [id number] Sarika Rose RN, BSN, [facility] , [address] [address] 01/15/2016 15:14:26 01/21/2016 12:10:03 Uncontrolled type 2 diabetes mellitus 685457790 E11.65 Met with Wilberto today for diabetes [...] of regular physical activity on blood sugars. [id number] Sarika Rose RN, BSN, [facility] , [facility] [address] [place] [address] 03/11/2016 14:57:26 03/11/2016 16:55:46 Uncontrolled type 2 diabetes mellitus 359242780 E11.65 Met with Wilberto today for follow [...] to bring his meter to future appointmen ts for download. If his A1C remains elevated [...] limiting cardiovasc ular risk. Other strategies for [facility]. [id number] Wallace Sweet MD , [facility], [address] [place] [address] 04/28/2016 08:47:08 04/28/2016 10:07:36 Adult health examination 559308964 Z00.00 see Risk Assessment and Lifestyle Change Counseling section above Counseling 328331898 Z71 .9 Mixed hyperlipidemia 267 509998 E78.2 continue to work on diet and exercise as discussed Uncontroll ed type 2 diabetes mellitus 275765316 E11.65 Impotence of organic origin 785038481 N52.9 Family his tory of malignant neoplasm of thyroid 434100939 Z80.8 [id number] Erna Villalpando OD [facility], [facility] [address] [place] [address] 06/03/2016 14:09:37 06/03/2016 16:01:10 Type 2 diabetes mellitus without complication 727289830 E11.9 uncontroll ed, no diabetic retinopath y OU, pt ed, encouraged good BS control to maintain good eye health and vision. RTC 1 yr CEE or sooner with vision changes. [id number] Wallace Sweet MD , [facility], [address] [place] [address] 08/04/2016 08:48:09 08/04/2016 09:18:49 Benign essential hypertension 7431221 I10 Mixed hyperlipidemia 267 368498 E78.2 Uncontroll ed type 2 diabetes mellitus 541590438 E11.65 Disorder o f nervous system due to type 2 diabetes mellitus 641581443 E11.40 Overweight 109794252 E66 .3 [id number] Sarika Rose RN, BSN, [facility] , [facility] [address] [place] [address] 09/01/2016 15:35:52 09/02/2016 09:08:30 Uncontrolled type 2 diabetes mellitus 271937771 E11.65 Met with Wilberto today for follow up of his diabetes education, kindly referred by Dr. Sweet. Wilberto has had diabetes for about 10 years now. Most recently, his A1C was 10.2% in [facility]. We reviewed how he has had [...] limiting cardiovasc ular risk. Other strategies for [facility]. [id number] John Luna MD , [facility], [address] [place] [address] 09/19/2016 13:00:28 09/19/2016 15:23:49 Impacted cerumen 02051476 H61.23 Otalgia 06340458 H92.03 likley due to cerumen [id number] Mani Padron MD , [facility], [address] [place] [address] 11/23/2016 11:29:28 11/24/2016 13:05:04 Acute bronchitis 99977946 J20.9 OOW for 2 days , tessalon perles, rest, liquids [id number] Wallace Sweet MD , [facility], [address] [place] [address] 11/24/2016 08:39:51 11/24/2016 09:46:06 Benign essential hypertension 0145109 I10 Mixed hyperlipidemia 267 184189 E78.2 Uncontroll ed type 2 diabetes mellitus 986905834 E11.65 [id number] Sarika Rose RN, BSN, [facility] , [facility] [address] [place] [address] 01/05/2017 14:22:22 01/11/2017 14:06:39 Uncontrolled type 2 diabetes mellitus 890039105 E11.65 Met with Wilberto today for follow [...] more. He reports he is flying to [place] in 2 weeks and is nervous about [...] once we decide what to prescribe him. [id number] Wallace Sweet MD , [facility], [address] [place] [address] 03/08/2017 16:58:56 03/08/2017 17:43:47 Benign essential hypertension 2934542 I10 Mixed hyperlipidemia 267 694521 E78.2 Uncontroll ed type 2 diabetes mellitus 064862743 E11.65 [id number] Sarika Rose RN, BSDIANE Lopez DM Education , [facility] [address] [place] [address] 03/16/2017 15:32:36 03/18/2017 08:48:45 Uncontrolled type 2 diabetes mellitus 891547322 E11.65 Met with Wilberto today for follow [...] testing often. He reports his trip to [place] went well during the summer when he was nervous he would eat too much food while he was away. He was at a wedding. He reports he tends to gain 15 lbs when he is in [place] and this was the first trip he did not gain any weight because he continued to be careful while he was away. He continues to takeMetfor min 1,000 mg BID, Glipizide 10 mg BID and Victoza 1.8 mg QD. He was encouraged to bring his meter to the future appointchanning home and start testing again. He was encouraged [...] of regular physical activity on blood sugars. [id number] Wallace Sweet MD , [facility], [address] [place] [address] 07/13/2017 14:38:02 07/14/2017 08:06:17 Benign essential hypertension 0497866 I10 Mixed hyperlipidemia 267 668910 E78.2 Uncontroll ed type 2 diabetes mellitus 430550043 E11.65 [id number] JUANIS Farfan , [facility], [address] [place] [address] 07/19/2017 09:59:16 07/19/2017 11:23:32 Screening for malignant neoplasm of colon 343549888 Z12.11 Referral for a DIRECT booked colonoscop y. This patient is a healthy ASA Class 1 or 2 patient (only mild systemic disease), or a STABLE, well controlled insulin dependent diabetic. They do not have serious cardiac disease ie DC/angiopl asty within 1 year, symptomati c CHF; renal failure with CKD 4 or 5; take Coumadin, Plavix, Aggrenox, etc. Acholic stool 47526423 R 19.5 Abnormal colored elif, labs & US ordered as written below, further treatment pending results. Impacted cerumen 7973165 6 H61.23 Both ears successful ly cleared of cerumen. Advised to use Debrox gtts. to keep ears patent. [id number] Meng Cruz MD , [facility], [address] [place] [address] 09/27/2017 11:53:22 09/28/2017 09:35:28 Acute bronchitis 88473773 J20.9 Reassured. Lungs completely clear. Enc force fluids, steam inhalation prn, adequate rest. OK to continue otc cold/cough meds prn for symptom management . F/u here if not gradually improving, symptoms worsening, especially if develops fevers or increased SOB. Codeine cough syrup prn primarily for night time use. Warned can cause drowsiness . [id number] Lianna Almazan D.O. , [facility], [address] [place] [address] 10/01/2017 14:36:18 10/01/2017 16:03:25 Acute low back pain 436038852 M54.5 09/25 came out with cold/bronc hitis [...] alternate hot/cold packs. follow up 4-5 days. [id number] John Luna MD , [facility], [address] [place] [address] 11/13/2017 09:44:36 11/13/2017 11:25:52 Dysfunction of eustachian tube 76808769 H69.91 supportive care f/u if not improved in 2-3 weks [id number] Meng Cruz MD , [facility], [address] [place] [address] 01/07/2018 14:46:25 01/10/2018 08:54:41 Hearing loss 55778039 H91.91 Impacted cerumen 0701291 6 H61.23 Nurse in as above. TM's [...] phone next week. Consider ENT/audiol ogy referral. [id number] Wallace Sweet MD , [facility], [address] [place] [address] 04/19/2018 13:34:53 04/19/2018 14:18:10 Benign essential hypertension 3091540 I10 Mixed hyperlipidemia 267 984015 E78.2 Uncontroll ed type 2 diabetes mellitus 025678923 E11.65 Hearing loss 56215148 H9 1.91 Anxiety 82410152 F41.9 [id number] Sarika Rose RN, BSN, [facility] , [facility] [address] [place] [address] 06/27/2018 08:42:53 07/04/2018 09:48:45 Uncontrolled type 2 diabetes mellitus 855279919 E11.65 Met with Wilberto clark for follow [...] the office was 234 mg/dl. Recommenda tions:-Con mike to work on diet and exercise. -Continue [...] of regular physical activity on blood sugars. [id number] Sarika Rose RN, BSN, [facility] , [facility] [address] [place] [address] 08/02/2018 07:50:46 08/02/2018 11:32:49 Uncontrolled type 2 diabetes mellitus 610050086 E11.65 Met with Wilberto clark for follow [...] doing situps and weight lifting. Recommenda tions:-Con mike current medication s: Metformin 1,000 mg BID, [...] limiting cardiovasc ular risk. Other strategies for [facility]. [id number] Erna Villalpando, [facility], [facility] [address] [place] [address] 08/02/2018 09:03:25 08/02/2018 15:56:51 Type 2 diabetes mellitus without complication 914925616 E11.9 uncontroll ed, no diabetic retinopath y OU, pt ed, encouraged good BS control to maintain good eye health and vision. RTC 1 yr CEE or sooner with vision changes. [id number] John Luna MD , [facility], [address] [place] [address] 10/05/2018 13:03:14 10/06/2018 08:27:14 Uncontrolled type 2 diabetes mellitus 557336311 E11.65 Pt to do labs, f/u w/ PCP in the next month Active or passive immunization 678886676 Z23 Pt declined TD for today despite knowing the risk of disease and Mixed hyperlipidemia 267 325681 E78.2 Pt to have labs done and schedule w/ PCP within the next month- discussed goal is LDL < 100 Impacted cerumen 5212018 6 H61.23 Bilateral impacted cerumen- ear lavage done Essential hypertension 61862002 I10 Pt to have labs done and schedule w/ PCP within the next month Neuropathy due to diabetes mellitus 220064678 E11.40 pt states- chronic- reviewed improved control of BS's will decrease symptoms. [id number] Wallace Sweet MD , [facility], [address] [place] [address] 03/30/2019 08:30:29 03/30/2019 09:12:31 Mixed hyperlipidemia 090662331 E78.2 Active or passive immunization 093633756 Z23 Benign ess ential hypertension 8831799 I10 Neuropathy due to diabetes mellitus 117050325 E11.40 Uncontroll ed type 2 diabetes mellitus 484089362 E11.65 [id number] Sarika Rose RN, BSN, [facility] , [address] [address] 05/04/2019 08:44:36 05/05/2019 12:08:07 Uncontrolled type 2 diabetes mellitus 848407499 E11.65 Met with Wilberto today for follow [...] limiting cardiovasc ular risk. Other strategies for [facility]. [id number] Gloria Leonard MD , [facility], [address] [place] [address] 05/23/2019 10:04:58 05/23/2019 15:19:11 Active or passive immunization 836811052 Z23 Asymmetric al sensorineural hearing loss 032010218 H90.5 pt will call for appt- printed the referral from Dr Sweet earlier this year so he can callhe never followed updoes not feel sx have changed Impacted c erumen of bilateral ears 3661061978 135545 H61.23 irrigation todaycompl etely cleared after several attempts [id number] John Luna MD , [facility], [address] [place] [address] 07/06/2019 08:16:55 07/06/2019 13:42:42 Acute upper respiratory infection 41135788 J06.9 Educated patient that URI is a [...] or failure to resolve in 2-4 weeks. [id number] Sarika Rose, RN, BSN, [facility] , [facility] [address] [place] [address] 07/12/2019 13:14:32 07/17/2019 11:36:40 Uncontrolled type 2 diabetes mellitus 200442466 E11.65 Met with Wilberto and his today [...] diabetes is progressiv e and medication s supervisor policy change clerks time (which includes insulin). Monitoring : Appropriat e times to test blood sugar and target blood sugars. Physical Activity : Introducti on to its importance . Effects of regular physical activity on blood sugars. Chronic Complicati ons: Introducti on to long-term effects, Importance of ABCs (A1c, Blood pressure and Cholestero l control) in limiting cardiovasc ular risk. Other strategies for [facility]. Reviewed the benefits of insulin and how he will need a long acting insulin before we start him on meal time insulin. [id number] Sarika Rose RN, BSN, [facility] , [facility] [address] [place] [address] 08/23/2019 12:54:55 08/23/2019 15:28:53 Uncontrolled type 2 diabetes mellitus 161153765 E11.65 Met with Wilberto and his today for diabetes education, kindly referred by Dr. Sweet.-He has had diabetes for about 10 years now.-Just arrived last week from [place]. No fever, no cough. -Last A1C was [...] 2 days). 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 He is working 13 hours per [...] diabetes is progressiv e and medication s supervisor policy change clerks time (which includes insulin). Monitoring : Appropriat e times to test blood sugar and target blood sugars.Chr onic Complicati ons: Introducti on to long-term effects, Importance of ABCs (A1c, Blood pressure and Cholestero l control) in limiting cardiovasc ular risk. Other strategies for [facility]. [id number] Wallace Sweet MD , [facility], [address] [place] [address] 08/24/2019 10:34:06 08/24/2019 17:49:12 Rib pain 098485124 R07.81 s/p fall. Advised compressio n brace and ibuprofen. RTC for worsening pain. [id number] Sarika Rose RN, BSN, [facility] , [facility] [address] [place] [address] 10/19/2019 09:06:19 10/20/2019 09:04:53 Uncontrolled type 2 diabetes mellitus 586586614 E11.65 -Virtual Appt via [employer] due to COVID-19 pandemic.- Kindly referred by [...] his A1C has been above 7% since 2015. He is more open to trying it this time. Will send a pt case to Dr. Sweet about kiley alvarez it. Reviewed the following: Chronic Complicati ons: Introducti on to long-term effects, Importance of ABCs (A1c, Blood pressure and Cholestero l control) in limiting cardiovasc ular risk. Other strategies for [facility]. Long acting insulin such as Lantus or Basaglar and the benefits for his blood sugars. [id number] Sarika Rose RN, BSN, [facility] , [facility] [address] [place] [address] 11/30/2019 10:15:19 12/01/2019 09:18:58 Uncontrolled type 2 diabetes mellitus 786427060 E11.65 -Virtual Appt via phone due to [...] the provider location is not at [facility] Patient location: home During the visit the patient s medical history and medical record were reviewed. The patient was notified to call our office for worsening or urgent symptoms. [id number] Wallace Sweet MD , [facility], [address] [place] [address] 03/22/2020 10:46:30 03/25/2020 09:35:39 Mixed hyperlipidemia 229225105 E78.2 Essential hypertension 36703924 I10 Uncontroll ed type 2 diabetes mellitus 533458279 E11.65 [id number] Meng Cruz MD , [facility], [address] [place] [address] 06/13/2020 10:08:22 06/17/2020 10:27:30 Muscle pain 71111084 M79.10 advised ample rest and hydration and gentle movement. RTC for worsening/ persisting sx. [id number] Meng Cruz MD , [facility], [address] [place] [address] 06/25/2020 14:01:39 06/26/2020 13:07:05 COVID-19 050827355 U07.1 Right sided headache lingering. No red flags. Advised ample rest, hydration , OTC migrelief. F/U in 1 week or sooner for worsening sx. [id number] Meng Cruz MD , [facility], [address] [place] [address] 07/02/2020 11:31:22 07/03/2020 14:29:04 SARS-CoV-2 491633580 U07.1 MEDINA has resolved. Asymptomat ic. Back at work. RTC for concerning sx. [id number] Sarika Rose RN, BSN, [facility] , [facility] [address] [place] [address] 08/22/2020 09:04:35 08/22/2020 10:47:49 Uncontrolled type 2 diabetes mellitus 468855990 E11.65 -Virtual Appt via phone due to [...] 180 mg/dl. -He watched on Youtube that half-way use of Metformin causes B12 deficiency , [...] doing it correctly when he started it. [id number] Wallace Sweet MD , [facility], [address] [place] [address] 12/30/2020 10:35:47 12/30/2020 11:37:27 Mixed hyperlipidemia 254203718 E78.2 Essential hypertension 72027678 I10 Neuropathy due to diabetes mellitus 796989762 E11.40 [id number] Sarika Rose RN, BSN, [facility] DM [facility] , [facility] [address] [place] [address] 01/28/2021 08:11:07 01/31/2021 15:37:06 Uncontrolled type 2 diabetes mellitus 062481216 E11.65 -Virtual Appt via [employer] due to COVID-19 pandemic. -Kindly referred by [...] glucose more often. 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 He likely needs short acting insulin with meals. Will discuss with Dr. Sweet about starting Humalog or Novolog. Did not get a chance to discuss this with Wilberto today and will discuss this at our next visit. [id number] Wallace Sweet MD , [facility], [address] [place] [address] 04/03/2021 08:49:27 04/03/2021 09:15:23 Essential hypertension 96664486 I10 Mixed hyperlipidemia 267 892460 E78.2 Uncontroll ed type 2 diabetes mellitus 160831829 E11.65 [id number] Sarika Rose RN, BSN, [facility] DM Education , [facility] [address] [place] [address] 04/08/2021 09:03:28 04/10/2021 12:59:38 Uncontrolled type 2 diabetes mellitus 000709950 E11.65 -Virtual Appt via [employer] due to COVID-19 pandemic. -Kindly referred by [...] it. He bought a toe guard from [employer]. At one point, he had to get custom made, from [employer] (about 10 years ago). As soon as [...] down blood sugars. FU in 1 month. 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 refer to retina. 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 No DR OS. No CSME OU. Presbyopia 26901685 H52. 4 ok to cont with OTC readers. [id number] Sarika Rose, RN, BSN, [facility] DM Education , [facility] [address] [place] [address] 07/14/2021 09:09:17 07/15/2021 09:52:12 Uncontrolled type 2 diabetes mellitus [id number] E11.65 -Virtual Appt via over the phone due to COVID-19 pandemic. Pt. tried connecting to [employer], however, it would not connect (he has [...] in the past. Tried to call [facility] to have it removed, however, was told that [facility] is no longer doing [...] in the past. Wants to see a bridge mechanic for it. There is a referral for a bridge mechanic from 04/03, encouraged he call to schedule [...] this month. Schedule an appt with the bridge mechanic . Call insurance to find out if [...] requiremen ts to go on a sensor. [id number] Gloria Leonard MD Podiatry, [facility] [address] [place] [address] 08/05/2021 10:29:51 08/05/2021 11:30:28 Disorder of nervous system due to type 2 diabetes mellitus 856270201 E11.49 Pronation of foot 588421 03 M21.6X9 [id number] Sarika Rose RN, BSN, [facility] DM Education , [facility] [address] [place] [address] 09/16/2021 10:02:55 09/19/2021 11:05:31 Uncontrolled type 2 diabetes mellitus [id number] E11.65 -Virtual Appt via [employer] today for diabetes education. -Kindly referred [...] sugars available due to losing his glucometer .09/16- F: 1444/4- F: 121; BD: 1474/3- F: 147; BD: 1584/2- F: 156; BD: 1684/- F: 119; BD: 1583/31- F: 169; BD: [...] guard for his large calluses. Saw a bridge mechanic and was told it was due to [...] until fasting glucose are below 130 mg/dl. [id number] Wallace Sweet MD , [facility], [address] [place] [address] 12/01/2021 10:39:30 12/01/2021 11:12:28 Adult health examination [id number] Z00.00 see Risk Assessment and Lifestyle Change Counseling section above Counseling 735187494 Z71 .9 including cardivascu lar risk reduction counseling Depression screening 171 876668 Z13.31 depression screening tool administer ed, entered into emr, scored and discussed, time greater than 7.5 minutes Screening for alcohol abuse 016180411 Z13.39 Essential hypertension 83009400 I10 Mixed hyperlipidemia 267 662170 E78.2 Active or passive immunization 338287159 Z23 Uncontroll ed type 2 diabetes mellitus 623005164 E11.65 Impacted c erumen of bilateral ears 1130855125 633646 H61.23 [id number] Sarika Rose RN, BSN, [facility] DM [facility] , [facility] [address] [place] [address] 12/24/2021 09:05:34 01/05/2022 16:28:55 Uncontrolled type 2 diabetes mellitus 973058635 E11.65 -Virtual Appt via over [employer] today for diabetes education. -Kindly referred by [...] F: 168; BD: 133/- F: 171; BD: 221/- F: 201; BD: 191/- F: 187; BD: 168/- F: 188; BD: 158/- F: 165; BD: 151 -No hypoglycem ia reported. -He does not eat after 1 pm. He gets home by 7:30 pm and will have dinner. He will have tonic water on his 5:30 pm break. -He does have some numbness and tingling, saw a bridge mechanic . He gets calluses on his big toe. He has flat feet and this causes the calluses. He puts a toe guard on them when walking.-Makayla barroso was a year ago. He went to [facility] eye doctor. He was [...] said that Dexcom is not covered at [employer], however, it is worth calling insurance to find out if it is covered with a DME and how much is the co-pay. The Freestyle Pushpa sensor is covered with [employer], however the co-pay is $100 per month. Pt.'s blood sugars are improved since he is watching his diet, however, his A1C was 12% in November and has been above 9-10% for years therefore, he is really in need of short acting insulin to avoid half-way complicati ons. Sent a message to Dr. Sweet about starting a small dose of Humalog or Novolog 5 units with each meal. Pt. does not currently have half-way complicati ons. Reviewed how insulin puts him [...] and the preferred DME is [facility]. 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 mild NPDR OU, trace ME OS. new finding. PED resolved OS. refer to retina in 1-2 weeks. [id number] Sarika Rose RN, BSN, [facility] DM Education , [address] [address] 01/21/2022 09:03:01 01/21/2022 12:26:35 Uncontrolled type 2 diabetes mellitus 018616101 E11.65 -Virtual Appt via over [employer] today for diabetes education. -Kindly referred by [...] his Freestyle Pushpa 2 sensor to [facility]'s [employer] account today. Download of sensor reveals:-A verage [...] he has eaten something. FU in February. [id number] Sarika Rose RN, BSN, [facility] DM Education , [address] [address] 02/18/2022 09:43:48 02/18/2022 10:30:23 Uncontrolled type 2 diabetes mellitus 618619339 E11.65 -Virtual Appt via over the phone [...] burp and he had diarrhea. -Connected to [employer] and able to review his download today: [...] appt in person. FU in 1 month. [id number] Sarika Rose RN, BSN, [facility] DM [facility] , [address] [address] 04/02/2022 10:05:34 04/02/2022 13:10:29 Uncontrolled type 2 diabetes mellitus 572536108 E11.65 -Virtual Appt via [employer] today. -Kindly referred by Dr. Sweet. [...] mg/dl.Carb ohydrate Ratio: 5 grams -Connected to [employer] and able to review his download today: [...] in 1 month to review sensor download. [id number] Mary Kate Weir MD , [facility], [address] [place] [address] 04/06/2022 10:40:31 04/06/2022 16:07:56 Tinnitus of left ear 2815414871 106 H93.12 Temporoman dibular joint disorder 97879535 M26.609 you can use both ibuprofen and [...] the area hurts more 2 hours after. [id number] Sheri Mata MD , [facility], [address] [place] [address] 06/18/2022 13:48:25 06/18/2022 14:18:13 Uncontrolled type 2 diabetes mellitus 202793173 E11.65 stressed importance of controllin g sugars or wounds will not healat risk of losing toes if we arent aggressive check a1c today, will call pt with results and possible med adjustment Diabetic foot ulcer 3710 56691 E13.621 start abx, refer to wound caresee above [id number] Sheir Mata MD , [facility], [address] [place] [address] 07/22/2022 14:28:48 07/22/2022 15:55:20 Uncontrolled type 2 diabetes mellitus 959207251 E11.65 stressed importance of controllin g sugars or wounds will not healat risk of losing toes if we arent aggressive last a1c 10.7contin ue meds, pt aggressive ly managingre peat a1c september, see me ronal grace message sent with info on nutrition consult name and number Diabetic foot ulcer 3710 11911 E13.621 slowly improvemen tcontinue with wound care [id number] Sheri Mata MD , [facility], [address] [place] [address] 08/10/2022 07:40:22 08/10/2022 08:42:21 Uncontrolled type 2 diabetes mellitus 923872767 E11.65 stressed importance of controllin g sugars [...] per month Neuropathy due to diabetes mellitus 952426746 E11.40 as above Diabetic foot ulcer 3710 63777 E13.621 slowly improvemen tcontinue with wound careMRI pending to rule out osteomyeli tis [id number] Sheri Mata MD , [facility], [address] [place] [address] 09/21/2022 14:38:30 09/21/2022 16:20:39 Essential hypertension 18285947 I10 well controlled on med Uncontroll ed type 2 diabetes mellitus 292288113 E11.65 a1c down to 7.9!contin ue diet, exercisewi ll back down lantus to avoid lows overnightc ontinue humalogrep eat labs, see me 3 monthsi will research berberine for safety Diabetic foot ulcer 3710 19949 E13.621 slowly improvemen tcontinue with wound care Health Concerns Section Related Observation LastModified by Organization Detai ls LastModified Time None Recorded Concern Status LastModified by Organization Details LastModified Time None Recorded Advance Directives Directive N: Payers Insurance Date Sequence Insurance Name Policy Number Policy Orozco Covered Member ID Orozco Member ID Guarantor Name 12/28/2022 1 [facility] ([facility] [id number] Wilberto Aquino [facility] [id number] Wilberto Aquino [facility] 07/08/2015 1 *SELF PAY* Tata patricia Aquino [facility] 12/28/2022 2 [employer] [id number] Wilberto Aquino [facility] [id number] Wilberto Aquino [facility] 12/28/2022 1 [facility] [id number] Wilberto Aquino [facility] [id number] Wilberto Aquino [facility] 12/28/2022 1 [facility] [id number] Wilberto Aquino [facility] [id number] Wilberto Aquino [facility] 12/28/2022 1 [place] Wilberto Aquino [facility] [id number] Wilberto Aquino [facility] 12/28/2022 1 [facility] ([facility] [id number] Wilberto Aquino [facility] [id number] Wilberto Conway Notes Date Note Type Note Provider Name and Address Organization Details Recorded Time 04/06/2022 text/html Pt reports L artur e ear and jaw pain ongoing about 2 wks, feels like he can hear constant humming in L ear, Denies drainage or swelling. Pain is worse when he opens his mouth. Mary Kate Weir MD [address] [place] [address], [phone], [facility] 04/06/2022 11:43:41 06/18/2022 text/html Foot issues. Big toe on both feet. Calluses. Blood blisters. presents to discuss feet. Has to wear steel toed shoes at work and now toes have painful blisters. Not checkin sugars. Taking meds as listed Sheri Mata MD [address] [place] [address], [phone], [facility] 06/18/2022 14:22:38 07/22/2022 text/html Patient presents to the office today for f/u on sore on foot. for followup foot ulcer and DM. Sugars mostly under 150. Taking meds as listed. WOrking hard on controlling.Seeing wound care, foot healing slowlyHasnt heard about nutrition consult Sheri Mata MD [address] [place] [address], [phone], [facility] 07/22/2022 14:59:41 08/10/2022 text/html Patient presents [...] 3-4 times per day Sheri Mata MD [address] [place] [address], [phone], [facility] 08/10/2022 08:23:38 09/21/2022 text/html for followup DM. Working very hard. Taking 50 lantus HS and 30 humalog with meals. Has been having lows in middle of night.Seeing wound care for foot. Had a setback, Was casted and caused infection, on two abx nowread about berberine, herb used in [place] for DM, wonders if can tryhad colon last week, normal Sheri Mata MD [address] [place] [address], [phone], [facility] 09/21/2022 15:30:10
== END ==
LOC: HO.CARD 12:37
PROVIDERS: PCP Internal Medicine; Visit Provider Internal Medicine
DX: I25.10 Atherosclerotic heart disease of native coronary artery without angina pectoris (principal); Z95.1 Presence of aortocoronary bypass graft
CPT/HCPCS: 93306; Q9957

== ENCOUNTER → 2025-01-02 12:39 | Outpatient (BNV) | payer OTHER, SELFPAY | PROVIDERS: PCP Internal Medicine; Visit Provider Internal Medicine | DX: I25.10 Atherosclerotic heart disease of native coronary artery without angina pectoris (principal) | CPT/HCPCS: 93306 ==

== ENCOUNTER 2025-01-08 12:10 | Outpatient (AMB) | payer OTHER, SELFPAY ==
--- NOTE | 2025-01-08 12:33 | A.OFFVIS_ITS ---
Vital Signs 01/08/25 12:34 Height 5 ft 10 in Weight 202 lb 13.204 oz BMI 29.1 BP 122/68 Blood Pressure Location Rt brachial Position Sitting Pulse 77 Pulse Source Pulse Oximeter Intake Visit Reasons: 3m follow up Allergies semaglutide (From Ozempic) Adverse Reaction (Intermediate, Verified 12/08/24 12:46) burping Medication List - Last Reconciled 01/08/25 by Santi George MD aspirin (Adult Aspirin Regimen) 81 mg PO DAILY atorvastatin 80 mg PO QPM [Diabetic shoes As directed] empagliflozin (Jardiance) 25 mg PO DAILY flash glucose sensor (FreeStyle Pushpa 2 Sensor kit) USE DIRECTED TO MONITOR BLOOD GLUCOSE DAILY. CHANGE SENSOR EVERY 14 DAYS insulin glargine (Lantus Solostar U-100 Insulin) 40 units (0.4 mL) subcut QPM lisinopril 5 mg PO DAILY metformin 1,000 mg PO BID metoprolol succinate ER (Toprol XL) 25 mg PO ONCE multivitamin 1 tab PO DAILY nitroglycerin 0.4 mg sublingual Q5M PRN HPI Comments Details: Wilberto returns for follow-up regarding coronary artery disease. He was seen regarding an abnormal stress test. Multiple cardiovascular risk factors including diabetes, hypertension, dyslipidemia. Noninvasive workup with exercise perfusion imaging led to coronary CTA and then a diagnostic catheterization. That revealed multivessel coronary disease. Eventually, had coronary artery bypass surgery. He seems to be fine for the most part. Some orthostatic dizziness and we had cut back on the beta-harsh dosing. It is better but still present. Otherwise doing good. [facility] Medical History (Updated 12/04/24 @ 00:01 by Raul Jacob) Obesity (BMI 30-39.9) Blood pressure elevated without history of HTN Finger stiffness Trigger finger, left middle finger Trigger finger, left index finger Chest discomfort Trigger finger, right index finger Trigger finger, right middle finger Abnormal stress ECG with treadmill Diarrhea Asthma Surgical History Hx of cardiac cath Hx of tonsillectomy Aftercare following bilateral shoulder joint replacement surgery History of appendectomy Family History Mother Emphysema lung Father Heart failure Brother Substance use disorder Mental health disorder Brother No problems noted. Brother No problems noted. Sister No problems noted. Daughter No problems noted. Son No problems noted. Son No problems noted. Social History Housing: House Alcohol intake: current Alcohol intake frequency: a few times a week Alcohol type: beer Patient Tobacco Use Status: Never used Tobacco Tobacco use type: Cigarette e-Cigarette/Vaping Use: Never Used Second Hand Smoke Exposure: No service: No Current occupational status: employed Cognitive needs: No Hearing needs: No Vision needs: Yes (Glasses) Review of Systems Const Denies weakness ENT Denies dizziness Card Denies chest pain, Denies chest pain with activity, Denies syncope, Denies rapid heart rate, Denies pedal edema, Denies edema, Denies leg edema, Denies l ightheadedness, Denies palpitations, Denies dyspnea, Denies dyspnea on exertion and Denies orthopnea Resp Denies cough, Denies dyspnea and Denies dyspnea on exertion GI Denies hematochezia and Denies change in stool character Musc Denies abnormal gait, Denies muscle cramps, Denies muscle weakness, Denies numbness, Denies radiating pain into limb and Denies tingling Neuro Denies abnormal gait, Denies dizziness, Denies syncope, Denies numbness, Denies tingling and Denies weakness Endo Denies palpitations Physical Exam Vital Signs: Last Vital Signs Pulse 77 01/08/25 12:34 BP 122/68 01/08/25 12:34 BMI result Body Mass Index 29.1 Const General: comfortable and no acute distress Orientation/consciousness: patient oriented x3 HEENT Other: Unremarkable Head: Yes normal to inspection Neck Neck: Yes normal visual inspection Chest Chest palpation & inspection: normal inspection of the chest Resp Auscultation: clear to auscultation bilaterally Cardio Palpation: normal PMI Heart sounds: S1 normal heart sound present, S2 normal heart sound present, no gallops, no murmurs and no rubs GI Palpation (GI): Soft to palpation Back/Spine/Pelvis Other: unremarkable Skin General skin exam: no rashes or lesions noted Neuro General: patient oriented x3 Extrem General: Yes normal to inspection Psych Mental Status: mental status grossly normal Assessment & Plan Assessment & Plan (1) Atherosclerotic cardiovascular disease: Code(s): I25.10 - Atherosclerotic heart disease of [place] coronary artery without angina pectoris Category: Medical (2) Type 2 diabetes mellitus with hyperglycemia: Comment: [facility] Code(s): E11.65 - Type 2 diabetes mellitus with hyperglycemia Category: Medical (3) Primary hypertension: Code(s): I10 - Essential (primary) hypertension Category: Medical (4) Hypercholesterolemia: Code(s): E78.00 - Pure hypercholesterolemia, unspecified Category: Medical Plan Overall, multiple cardiovascular risk factors, stable angina, multivessel coronary disease, status post coronary artery bypass surgery. Continue aspirin and statins. Check lipids and there is already an order for that. With regard to orthostatic dizziness, beta-harsh dose has already been cut back. He can stop it completely and see how he feels. Continue cardiac rehabilitation. Follow-up in 6 months. In the interim, call with concerns. Discussion Notes I discussed with the patient the importance of monitoring his blood pressure and the potential to discontinue metoprolol if he feels stable, ensuring his blood pressure remains controlled. We reviewed the contraindication of using sildenafil with nitroglycerin due to the risk of significant hypotension. I advised him to have his cholesterol levels checked as ordered by Dr. Boyer and discussed the possibility of returning to work with no restrictions, emphasizing the need to avoid heavy physical exertion. Patient was informed and verbally consented to the use of an ambient scribe for clinic note documentation during this visit. Patient Instructions: - Monitor your blood pressure regularly. - Avoid using sildenafil with nitroglycerin. - Have your cholesterol levels checked as ordered by Dr. Boyer. - Consider returning to work with no restrictions, but avoid heavy physical exertion. Coding Level of Care Code Est Pt Level 4 (97543) Complex EM visit Add On G2211 Diagnoses Atherosclerotic cardiovascular disease I25.10 Type 2 diabetes mellitus with hyperglycemia E11.65 Primary hypertension I10 Hypercholesterolemia E78.00
[2025-01-08 12:34] VITALS: BP 122/68; PULSE 77; BMI 29.1
--- OUTSIDE RECORDS SUMMARY | 2025-01-08 13:09 | XMS_ITS | Encounter Summary ---
Author Organization [facility] Address [address] [place] [address] Phone Care Team Providers Care Lifestyle Consultant Name Role Phone Wallace Sweet MD Primary Care Provider [phone] Encounter Details Date Type Department Care Team (Latest Contact Info) Description 09/02/2017 Transcribe Orders [facility] Laboratory [address] [place] [id number] Giovanni Kraus MD [address] [place] [id number] [email or web address] Steatohepatitis (Primary Dx) Social History Tobacco Use [...] EDT) SODIUM 137 133 - 146 mmol/L [facility] POTASSIUM 4.5 3.3 - 5.1 mmol/L [facility] CHLORIDE 98 96 - 108 mmol/L [facility] CO2 26 21 - 35 mmol/L [facility] BUN 14 6 - 19 mg/dL [facility] CREATININE 0.70 0.5 - 1.5 mg/dL [facility] GLUCOSE 255(H) 70 - 99 mg/dL [facility] ALBUMIN 4.8 3.9 - 4.8 g/dL [facility] TOTAL PROTEIN 7.7 6.5 - 8.0 g/dL [facility] CALCIUM 9.5 8.4 - 10.3 mg/dL [facility] ALKALINE PHOSPHATASE 90 39 - 117 U/L [facility] TOTAL BILIRUBIN 0.6 0.0 - 1.2 mg/dL [facility] AST 20 0 - 37 U/L [facility] ALT 28 0 - 40 U/L [facility] GLOBULIN 2.9 1 - 4.8 g/dL [facility] EGFR 109 >59 mL/min/1.7 3m2 [facility] Comment:If patient is black, multiply result by 1.159. The eGFR calculation has changed from the MDRD equation to the CKD-EPI equation as of August 17, 2017. ANION GAP 18 10 - 20 mmol/L [facility] Blood 09/02/2017 3:05 PM EDT 09/02/2017 3:08 PM EDT us Giovanni Kraus MD LAB BLOOD ORDERABLES Final Re sult [address] [address] * CBC (09/02/2017 3:05 PM EDT) WBC 8.19 3.40 - 11.20 K/uL [facility] RBC 5.29 4.50 - 5.50 M/uL [facility] HGB 15.4 13.0 - 17.0 g/dL [facility] HCT 46.1 40.0 - 51.0 % [facility] PLT 311 130 - 400 K/uL [facility] MCV 87.1 79.0 - 98.0 [facility] MCH 29.1 27.0 - 34.8 pg [facility] MCHC 33.4 31.5 - 36.0 g/dL [facility] RDW 12.9 10.8 - 14.6 % [facility] MPV 10.8 9.4 - 12.4 [facility] NRBC 0.00 /100 WBCs [facility] ABSOLUTE NRBC 0.00 K/uL [facility] Blood 09/02/2017 3:05 PM EDT 09/02/2017 3:08 PM EDT us Giovanni Kraus MD LAB BLOOD ORDERABLES Final Re sult Performing Organization Address City/State/[facility] Co de Phone Number [facility] [address] [place] [address] documented in this encounter Visit Diagnoses Diagnosis Steatohepatitis- Primary Other chronic nonalcoholic liver disease documented in this encounter Care Teams Lifestyle Consultant Relationship Specialty Start Date End Date Wallace Sweet MD [email or web address] PCP - General Family Medicine 09/02/17 documented as of this encounter Additional Source Comments The information contained in this document represents components of the legal health record. It is not the complete legal health record.[facility]
--- OUTSIDE RECORDS SUMMARY | 2025-01-08 13:09 | XMS_ITS | Data Portability ---
Author Organization [facility], [facility] Address [address] [place] [address] Care Team Providers Care Sample Cutter Name Role Phone JOSS WHEELER Youth Development Professional ERNIE DEAN Electrician Technician Assessment Encounter Date Assessment Date Assessment LastModified by Organization Details LastModified Time 09/21/2022 09/21/2022 colon 10/[address] chin [email or web address] Not available 09/21/2022 15:28:01 Plan of Treatment Reminders Order Date Submit Date Provider Last Modified By Organization Details Last Modified Time Details Appointments None recorded. Lab HbA1c (hemoglobin A1c), blood 2022 023 [facility], [address] [place] [address], [address], 3 11:02:52 microalbumi n/creatinin e, ratio panel, urine 2022 023 [facility], [address] [place] [address], [address], 3 12:27:09 Referral wound care referral - DM foot ulcers, both great toes 2022 023 gabbi Hammonds [facility], [address] [place] [address] [place], [address], 3 10:12:51 nutritionis t/dietitian referral 2022 023 [email or web address] Suze Whipple, [address] [place] [address] [place], [address], 3 10:49:02 otolaryngol ogist referral - tinnitus and TMJ same side; please eval and Rx as needed 2021 022 [email or web address] Dunia Burkett MD, [address] [place], [address], 11:14:12 Procedures None recorded. Surgeries None recorded. Imaging None recorded. Medication Orders cephalexin 500 mg tablet 2022 023 [facility], [address] [place] [address], [address], 14:38:26 Patient TargetsNo targets recorded. Patient InstructionsNo instructions recorded. 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 METAB OLIC PANEL glucose 262 mg/dL 70-100 high Not Available [address], [address], 06/19/2022 11:00:07 06/18/19 23 06/19/2022 COMP. METAB OLIC PANEL BUN 13 mg/dL 7-18 Not Available [address], [address], 06/19/2022 11:00:07 06/18/19 23 06/19/2022 COMP. METAB OLIC PANEL creatinine 1.0 mg/dL 0.8-1. 3 Not Available [address], [address], 06/19/2022 11:00:07 06/18/19 23 06/19/2022 COMP. METAB OLIC PANEL B/C 13.0 ratio Not Available [address], [address], 06/19/2022 11:00:07 06/18/19 23 06/19/2022 COMP. METAB [...] be used in pregn valentina. Not Available [address], [address], 06/19/2022 11:00:07 06/18/19 23 06/19/2022 COMP. METAB OLIC PANEL sodium 140 mmol/ L 136-14 5 Not Available [address], [address], 06/19/2022 11:00:07 06/18/19 23 06/19/2022 COMP. METAB OLIC PANEL potassium 5.0 mmol/ L 3.5-5. 1 Not Available [address], [address], 06/19/2022 11:00:07 06/18/19 23 06/19/2022 COMP. METAB OLIC PANEL chloride 101 mmol/ L 96-107 Not Available [address], [address], 06/19/2022 11:00:07 06/18/19 23 06/19/2022 COMP. METAB OLIC PANEL anion gap 7.6 5.0-15 .0 Not Available [address], [address], 06/19/2022 11:00:07 06/18/19 23 06/19/2022 COMP. METAB OLIC PANEL CO2 31 mmol/ L 21-32 Not Available [address], [address], 06/19/2022 11:00:07 06/18/19 23 06/19/2022 COMP. METAB OLIC PANEL calcium 9.2 mg/dL 8.5-10 .3 Not Available [address], [address], 06/19/2022 11:00:07 06/18/19 23 06/19/2022 COMP. METAB OLIC PANEL total protein 7.2 g/dL 6.4-8. 2 Not Available [address], [address], 06/19/2022 11:00:07 06/18/19 23 06/19/2022 COMP. METAB OLIC PANEL albumin 4.2 g/dL 3.4-5. 0 Not Available [address], [address], 06/19/2022 11:00:07 06/18/19 23 06/19/2022 COMP. METAB OLIC PANEL globulin 3.0 g/dL Not Available [address], [address], 06/19/2022 11:00:07 06/18/19 23 06/19/2022 COMP. METAB OLIC PANEL A/G 1.4 ratio 0.8-2. 0 Not Available [address], [address], 06/19/2022 11:00:07 06/18/19 23 06/19/2022 COMP. METAB OLIC PANEL total bilirubin 0.80 mg/dL 0.00-1 .00 Not Available [address], [address], 06/19/2022 11:00:07 06/18/19 23 06/19/2022 COMP. METAB OLIC PANEL AST 20 U/L 0-37 Not Available [address], [address], 06/19/2022 11:00:07 06/18/19 23 06/19/2022 COMP. METAB OLIC PANEL ALT 37 U/L 6-63 Not Available [address], [address], 06/19/2022 11:00:07 06/18/19 23 06/19/2022 COMP. METAB OLIC PANEL alk. phos. 117 U/L 50-136 Not Available [address], [address], 06/19/2022 11:00:07 06/18/19 23 06/19/2022 LIPID PANEL cholesterol 191 mg/dL <200 mg/dl Maty able 200-2 39 mg/dl Borde rline High >240 mg/dl High Not Available [address], [address], 06/19/2022 11:00:09 06/18/19 23 06/19/2022 LIPID PANEL triglyceride s 289 mg/dL high LIPS= Speci men Sligh tly Lipem ic. Chem Resul ts may be effec nicole. <150 mg/dL Karley l 150-1 99 mg/dL Borde rline High 200-4 99 mg/dL High >500 mg/dL Very High Not Available [address], [address], 06/19/2022 11:00:09 06/18/19 23 06/19/2022 LIPID PANEL direct HDL 54 mg/dL <40 mg/dl - Major Risk for CHD >60 mg/dl - Negat garry Risk for CHD Not Available [address], [address], 06/19/2022 11:00:09 06/18/19 23 06/19/2022 DIREC T [...] r is not neces audrey. Not Available [address], [address], 06/19/2022 11:00:11 06/18/19 23 06/19/2022 HGB A1C [...] furth er confi rmati on Not Available [address], [address], 06/19/2022 12:22:00 06/18/19 23 06/19/2022 HGB A1C estimated average glucose 260.4 mg/dL Not Available [address], [address], 06/19/2022 12:22:00 09/13/19 23 09/14/2022 HGB A1C [...] furth er confi rmati on Not Available [address], [address], 09/14/2022 11:02:52 09/13/19 23 09/14/2022 HGB A1C estimated average glucose 180.0 mg/dL Not Available [address], [address], 09/14/2022 11:02:52 09/13/19 23 09/14/2022 MICRO ALBUM IN/CR EATIN INE RATIO PANEL , URINE microalbumin 8.0 mg/L 1.3-20 .0 Not Available [address], [address], 09/14/2022 12:27:09 09/13/19 23 09/14/2022 MICRO ALBUM IN/CR EATIN INE RATIO PANEL , URINE creatinine urine 100.6 mg/dL 30.0-1 25.0 Not Available [address], [address], 09/14/2022 12:27:09 09/13/19 23 09/14/2022 MICRO ALBUM IN/CR EATIN INE RATIO PANEL , URINE microalb/cre at ratio 8.0 mg/g_ creat 0.0-29 .0 Not Available [address], [address], 09/14/2022 12:27:09 06/10/20 22 06/10/2022 US abdom [...] wnl IVC: appear s wnl WALLACE SWEET [facility] [address] [facility], [place], [address], 06/11/2022 07:07:36 10/14/1909/17/2022 colon oscop y proce dure (PROC ) No observ ation record ed. BARCODE Not Available 2022 11:32:22 Result Notes None recorded. Problems Name Problem SNOMED Code Status Onset Date Resolution Date Notes Provider Name and Address Organization Details Recorded Time Essential hypertensi on 61598356 Active Not Available [facility] 3 21:02:46 Excessive cerumen in ear canal 704890488 Active Not Available [facility] 3 21:02:46 Effusion of joint of shoulder region 58068818 Completed 03/27/2014 Wallace Sweet MD [address] [place] [address], [phone] , [facility] 4 05:26:27 Pain of shoulder region 65272177 Completed 05/03/2013 Not Available [facility] 3 02:01:00 Benign essential hypertensi on 8705456 Completed 01/19/2012 Not Available [facility] 3 03:03:47 On examinatio n - a rash Completed 05/03/2013 Not Available [facility] 3 02:00:46 Type 2 diabetes mellitus without complicati on 737931590 Completed 03/27/2014 Wallace Sweet MD [address] [place] [address], [address] , [facility] 4 05:26:43 Impacted cerumen 07552210 Completed 200005/03/2013 Not Available [facility] 3 02:02:10 Otogenic otalgia 50400079 Completed 200105/03/2013 Not Available [facility] 3 02:03:18 Hearing loss 10875789 Active 2001 Not Available [facility] 3 21:02:46 Temporoman dibular joint disorder 52914570 Completed 200103/27/2014 Wallace Sweet MD [address] [place] [address], [address] , [facility] 4 05:26:43 Elevated blood-pres sure reading without diagnosis of hypertensi on 789333792 Completed 200103/27/2014 Wallace Sweet MD [address] [place] [address], [address] , [facility] 4 05:26:27 Carpal tunnel syndrome 57102041 Active 2001 Not Available [facility] 3 21:02:46 Scrotal varices Active 2001 Not Available [facility] 3 21:02:46 Pure hyperchole sterolemia 318777452 Completed 200203/27/2014 Wallace Sweet MD [address] [place] [address], [address] , [facility] 4 05:26:27 Internal hemorrhoid s 62975100 Completed 200205/03/2013 Not Available [facility] 3 02:03:12 Abdominal pain 30273225 Completed 200205/03/2013 Not Available [facility] 3 02:01:20 Sprain of knee and leg Completed 200205/03/2013 Not Available [facility] 3 02:03:04 Type 2 diabetes mellitus without complicati on 067272426 Completed 200601/05/2012 Not Available [facility] 3 03:03:47 Mixed hyperlipid emia 711998208 Active 2006 Not Available [facility] 3 21:02:46 Renal disorder due to type 2 diabetes mellitus 572259594 Active 2006 Not Available [facility] 3 21:02:46 Obesity 375668718 Active 2006 Not Available [facility] 3 21:02:46 Diabetes mellitus 32880575 Completed 200603/27/2014 Wallace Sweet MD [address] [place] [address], [address] , [facility] 4 05:26:27 Uncontroll ed type 2 diabetes mellitus 583358689 Active 2007 Not Available [facility] 3 21:02:46 Disorder of bursa of shoulder region 34051678 Completed 200705/03/2013 Not Available [facility] 3 02:04:09 Medial epicondyli tis 85733239 Completed 200705/03/2013 Not Available [facility] 3 02:04:00 Pain of shoulder region 90887619 Completed 200707/29/2008 Not Available [facility] 3 03:03:47 Impotence of organic origin Active 2007 Not Available [facility] 3 21:02:46 Anxiety 93374255 Active 2016 Not Available [facility] 3 21:02:46 Neuropathy due to diabetes mellitus 636591163 Active 2018 Not Available [facility] 3 21:02:46 Notes:Some problems listed i n Document: #[id number] could not be added to this patient's chart. Please review this document and add these problems to the patient's chart manually as needed. Problem Notes None recorded. Procedures Surgical History Date Name Laterality Status Provider Name and Address Organization Details Recorded Time 01/09/20 22 Fundus Photography completed Erna Villalpando, OD [address] [place] [address], [phone], [facility] 01/09/2022 13:35:41 04/25/20 21 Fundus Photography completed Erna Villalpando, OD [address] [place] [address], [phone], [facility] 04/25/2021 09:33:54 04/25/20 21 Optical Coherence Tomography (Retina) completed Erna Villalpando, OD [address] [place], [address], [facility] 04/25/2021 09:34:09 05/23/20 19 Cerumen Removal - Irrigation/Lavag e completed Anabelle Bragg [facility] 05/23/2019 11:33:23 10/06/19 19 Cerumen Removal - Irrigation/Lavag e completed Yvonne Edwards [facility] 10/05/2018 14:20:07 01/08/20 18 Cerumen Removal - Irrigation/Lavag e completed Akua Pizano LPN [facility] 01/07/2018 16:13:04 07/19/19 18 Cerumen Removal - Irrigation/Lavag e completed Mary Lott LPN [facility] 07/19/2017 11:26:34 11/25/19 17 Glucose Meter Teaching completed Akua Pizano LPN [facility] 11/24/2016 09:44:01 09/20/19 17 Cerumen Removal - Irrigation/Lavag e completed Karina Li [facility] 09/19/2016 13:28:46 12/17/19 16 Cerumen Removal completed Michelle Mary LPN [facility] 12/17/2015 11:32:24 03/07/20 15 Cerumen Removal completed Viri Gomez RN [facility] 03/07/2015 17:46:53 06/06/20 14 Cerumen Removal completed Shannan Lacy RN [facility] 06/06/2014 09:00:42 10/06/19 13 Cerumen Removal completed Michelle Mary LPN [facility] 10/05/2012 11:59:21 04/14/20 12 Other (specify) completed Domenic Collazo MD [address] [place] [address], [address], [facility] 04/04/2014 14:03:38 01/19/20 12 Cerumen Removal completed Cate Sims RN [facility] 01/19/2012 12:04:10 12/22/19 12 Treatment and Advice completed Ammy Chou, OT [address] [place] [address], [phone], [facility] 12/22/2011 13:00:06 08/11/19 11 Cerumen Removal completed Zo Johnston LPN [facility] 08/11/2010 16:18:17 10/15/19 10 Cerumen Removal completed Zo Johnston LPN [facility] 10/14/2009 11:03:38 08/08/19 10 Aspiration Major Joint/Bursa completed Wallace Sweet MD [address] [place] [address], [address], [facility] 08/08/2009 12:04:47 06/14/19 10 Other (specify) completed Domenic Collazo MD [address] [place] [address], [address], [facility] 04/04/2014 14:03:38 12/20/19 09 Cerumen Removal completed Marge Richey NP [address] [place] [address], [address], [facility] 12/19/2008 09:54:31 01/01/19 84 Appendectomy completed Domenic Collazo MD [address] [place], [address], [facility] 04/04/2014 14:03:38 06/14/18 71 Other (specify) completed Domenic Collazo MD [address] [place], [address], [facility] 04/04/2014 14:03:38 Imaging Results None recorded. Procedure Notes None recorded. Medical Equipment None Reported. Allergies Allergen ID Allergen Name Allergen Category Reaction Reaction Severity Criticality Documentation Date Start Date Code Code System Note Provider Name and Address Organization Details Recorded Time Trulicity medicatio n abdominal pain moderate Not available 03/22/2020 92382 96 RxNorm Jumana Johnson MA [facility] 11:01:03 Medications Name Sig Start [...] Updated DateTime 3 177.8 cm 31.7 kg/m2 222410. 91 g 98.1 [degF] 90 /min 97 % 97 % 140/66 mm[Hg] Nadira Borges, [facility] 3 14:03:45 Date Recorded Body height Heart rate Oxygen saturation Oxygen saturation in Arterial blood by Pulse oximetry Systolic And Diastolic Provider Name and Address Organization Details Last Updated DateTime 3 177.8 cm 80 /min 97 % 97 % 128/60 mm[Hg] Gloria Crockett [facility] 3 14:42:18 Date Recorded Body weight Body temperature Heart rate Respiratory rate Oxygen saturation Oxygen saturation in Arterial blood by Pulse oximetry Systolic And Diastolic Provider Name and Address Organization Details Last Updated DateTime 3 27673.4 7 g 97.2 [degF] 88 /min 16 /min 96 % 96 % 144/69 mm[Hg] Gloria Crockett [facility] 3 15:25:48 Date Recorded Body height Heart rate Oxygen saturation Oxygen saturation in Arterial blood by Pulse oximetry Systolic And Diastolic Provider Name and Address Organization Details Last Updated DateTime 3 177.8 cm 82 /min 96 % 96 % 112/60 mm[Hg] Gloria Crockett [facility] 3 08:07:48 Date Recorded Body height Body mass index (BMI) Body weight Systolic And Diastolic Provider Name and Address Organization Details Last Updated DateTime 09/21/2022 177.8 cm 32.7 kg/m2 738774.06 g 128/64 mm[Hg] Gloria Crockett [facility] 09/21/2022 15:11:54 Date Recorded Body height Heart rate Body temperature Body mass index (BMI) Body weight Systolic And Diastolic Provider Name and Address Organization Details Last Updated DateTime 2 177.8 cm 84 /min 98.1 [degF] 31.1 kg/m2 62686.7 5 g 136/74 mm[Hg] Socorro Mckeon [facility] 2 11:09:57 Social History Question Answer Notes LastModified by Organizat ion Details LastModified Time Tobacco Smoking Status Never Smoker Not Available [facility] 2011 04:53:49 Do You Have An [...] Of Your Most Recent Tobacco Screening? 09/21/2022 [email or web address] Information not available 09/21/2022 How Many Children [...] other forms of tobacco or nicotine? No [email or web address] Information not available 07/22/2022 What is your level of alcohol consumption? Moderate 1-2 every 2-3 weeks Information not available 07/22/2022 Do you or have you ever used smokeless tobacco? 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[employer] Information not available 07/28/2012 Do [...] Td(adult) unspecified formulation 7 completed Not Available [facility] 10/01/2022 21:02:47 influenza, unspecified formulation 7 completed Not Available [facility] 10/01/2022 21:02:47 pneumococcal polysaccharide PPV23 7 completed Not Available [facility] 10/01/2022 21:02:47 influenza, unspecified formulation 7 completed Not Available [facility] 10/01/2022 21:02:47 influenza, unspecified formulation 8 completed Not Available [facility] 10/01/2022 21:02:47 Influenza, split virus, quadrivalent, PF 3 completed Not Available [facility] 07/01/2019 02:26:42 Influenza, split virus, trivalent, preservative 4 completed Not Available [facility] 10/01/2022 21:02:47 Influenza, split virus, quadrivalent, PF 9 completed Not Available [facility] 07/01/2019 02:38:00 Tdap 2 completed Wallace Sweet MD [address] [place] [address], [phone], [facility] 12/02/2021 13:46:50 COVID-19, mRNA, LNP-S, PF, 30 mcg/0.3 mL dose 1 completed Not Available [facility] 10/01/2022 21:02:47 COVID-19, mRNA, LNP-S, PF, 30 mcg/0.3 mL dose 1 completed Not Available [facility] 10/01/2022 21:02:47 Past Encounters Encounter ID Performer Location Encounter Start Date Encounter Closed Date Diagnosis/Indication Diagnosis SNOMED-CT Code Diagnosis ICD10 Code Diagnosis Note [id number] POORNIMA Willis , [facility], [address] [place] [address] 10/27/2000 10:45:00 07/04/2008 02:02:29 [id number] TREATMENT NURSE [facility] FP, [facility], [address] [place] [address] 11/25/2001 10:38:36 07/04/2008 02:02:29 [id number] Akua Cerda NP , [facility], [address] [place] [address] 11/22/2001 12:58:05 07/04/2008 02:02:29 [id number] Akua Cerda NP , [facility], [address] [place] [address] 02/17/2002 10:16:06 07/04/2008 02:02:29 [id number] STUART Lopez, [facility], [address] [place] [address] 04/11/2002 10:38:32 07/04/2008 02:02:29 [id number] MD CLAUDE Bazan, [facility], [address] [place] [address] 05/18/2002 08:54:31 07/04/2008 02:02:29 [id number] [facility] - [address] [address] 06/23/2002 08:25:25 07/04/2008 02:02:29 [id number] Akua Cerda NP , [facility], [address] [place] [address] 10/27/2002 10:38:56 07/04/2008 02:02:29 [id number] MD CLAUDE Gabriel, [facility], [address] [place] [address] 12/04/2002 14:46:36 07/04/2008 02:02:29 [id number] [facility] - [facility] [address] [place] [address] 12/04/2002 00:00:00 07/04/2008 02:02:29 [id number] MD CLAUDE Bazan, [facility], [address] [place] [address] 12/19/2002 16:00:41 07/04/2008 02:02:29 [id number] Akua Cerda NP , [facility], [address] [place] [address] 05/21/2003 13:45:19 05/21/2003 17:33:03 [id number] Mani Padron MD , [facility], [address] [place] [address] 11/01/2003 16:14:38 11/02/2003 10:55:10 [id number] MD CLAUDE Bazan, [facility], [address] [place] [address] 06/09/2004 09:12:28 06/09/2004 14:35:16 [id number] POORNIMA Peralta, [facility], [address] [place] [address] 07/17/2005 09:52:58 07/17/2005 15:36:35 [id number] STUART Lopez, [facility], [address] [place] [address] 07/05/2006 10:47:49 07/05/2006 15:09:32 [id number] [facility] - [address] [address] 07/06/2006 07:27:25 07/06/2006 07:27:29 [id number] STUART Lopez, [facility], [address] [place] [address] 07/09/2006 13:58:02 07/09/2006 15:28:32 [id number] [facility] - [address] [address] 07/09/2006 14:56:53 07/09/2006 14:57:19 [id number] STUART Lopez, [facility], [address] [place] [address] 07/16/2006 00:00:00 07/04/2008 02:02:29 [id number] STUART Lopez, [facility], [address] [place] [address] 07/23/2006 07:25:57 07/23/2006 11:32:05 [id number] FP TREATMENT NURSE [facility] FP, [facility], [address] [place] [address] 07/26/2006 13:43:23 07/26/2006 16:17:18 [id number] [facility] - [address] [address] 08/09/2006 07:13:41 08/09/2006 07:13:45 [id number] STUART Lopez, [facility], [address] [place] [address] 08/27/2006 08:04:39 08/27/2006 11:15:54 [id number] STUART Lopez, [facility], [address] [place] [address] 08/24/2006 08:24:16 09/13/2006 14:24:02 [id number] MD CLAUDE Bazan, [facility], [address] [place] [address] 12/21/2006 14:50:21 12/23/2006 08:29:08 [id number] [facility] - [address] [address] 12/24/2006 07:43:32 12/24/2006 07:43:36 [id number] [facility] - [address] [address] 03/16/2007 07:12:11 03/16/2007 07:12:16 [id number] MD CLAUDE Bazan, [facility], [address] [place] [address] 03/22/2007 15:01:47 07/04/2008 02:02:29 [id number] STUART Lopez, [facility], [address] [place] [address] 05/23/2007 09:05:39 07/04/2008 02:02:29 [id number] [facility] - [address] [address] 05/27/2007 07:46:56 05/27/2007 07:47:00 [id number] STUART Lopez, [facility], [address] [place] [address] 07/22/2007 10:48:34 07/04/2008 02:02:29 [id number] STUART Reynolds, [facility], [address] [place] [address] 12/22/2007 14:13:35 07/04/2008 02:02:29 [id number] [facility] - [address] [address] 12/21/2007 07:18:47 12/21/2007 07:18:53 [id number] Wilberto Hopson , PT Physical Therapy, [address] [address] 12/28/2007 16:24:57 12/29/2007 09:55:50 [id number] MD CLAUDE Bazan, [facility], [address] [place] [address] 01/16/2008 13:54:48 07/04/2008 02:02:29 [id number] Wilberto Hopson , PT Physical Therapy, [facility] [address] [place] [address] 01/11/2008 16:24:51 01/24/2008 14:08:00 [id number] MD CLAUDE Bazan, [facility], [address] [place] [address] 02/22/2008 08:46:10 07/04/2008 02:02:29 [id number] MD CLAUDE Fraser, [facility], [address] [place] [address] 02/27/2008 10:14:54 07/04/2008 02:02:29 [id number] [facility] - [address] [address] 04/19/2008 07:02:00 04/19/2008 07:02:05 [id number] STUART Lopez, [facility], [address] [place] [address] 05/03/2008 09:17:10 07/04/2008 02:02:29 [id number] Brandon Castano, [facility], [address] [place] [address] 05/08/2008 10:28:13 07/04/2008 02:02:29 [id number] STUART Lopez, [facility], [address] [place] [address] 05/17/2008 10:44:38 07/04/2008 02:02:29 [id number] MD CLAUDE Gallardo, [facility], [address] [place] [address] 07/26/2008 10:36:24 07/30/2008 11:01:51 [id number] MD CLAUDE Bazan, [facility], [address] [place] [address] 11/07/2008 10:33:14 11/12/2008 14:37:51 [id number] [facility] RADIOLOGY [facility] , [facility] [address] [place] [address] 11/07/2008 11:51:45 11/09/2008 11:42:29 [id number] STUART Paredes, [facility], [address] [place] [address] 12/19/2008 09:10:58 12/19/2008 14:12:15 [id number] MD CLAUDE Bazan, [facility], [address] [place] [address] 02/20/2009 16:27:04 02/21/2009 14:15:54 [id number] [facility] - [address] [address] 10/29/2008 07:04:44 10/29/2008 07:04:54 [id number] [facility], [address] [address] 12/04/2008 08:35:01 12/04/2008 14:08:24 [id number] [facility] - [address] [address] 02/05/2009 08:52:32 02/05/2009 08:52:40 [id number] MD CLAUDE Bazan, [facility], [address] [place] [address] 08/08/2009 10:49:48 08/09/2009 11:28:19 [id number] STUART Lopez, [facility], [address] [place] [address] 09/17/2009 10:57:01 09/19/2009 12:48:32 [id number] STUART Lopez, [facility], [address] [place] [address] 10/01/2009 09:16:37 10/01/2009 14:51:25 [id number] Akua Cerda NP , [facility], [address] [place] [address] 10/14/2009 10:06:27 10/14/2009 12:00:02 [id number] Wallace Sweet MD , [facility], [address] [place] [address] 01/16/2010 07:41:39 01/16/2010 12:37:13 [id number] Lauren Khan NP , [facility], [address] [place] [address] 08/11/2010 14:49:16 08/14/2010 13:29:10 [id number] Wallace Sweet MD , [facility], [address] [place] [address] 09/04/2010 11:12:12 09/09/2010 08:33:12 [id number] Wallace Sweet MD , [facility], [address] [place] [address] 01/14/2011 10:09:19 01/14/2011 11:23:50 [id number] Noel Kidd MD , [facility], [address] [place] [address] 04/10/2011 11:50:57 04/13/2011 13:24:56 [id number] Kaye Lindsey PA-C , [facility], [address] [place] [address] 12/22/2011 07:59:48 12/22/2011 14:26:16 [id number] Nicole Brower MD Radiology , [facility] [address] [place] [address] 12/22/2011 08:46:23 12/23/2011 11:15:39 [id number] Ammy Chou, OT Physical Therapy, [facility] [address] [place] [address] 12/22/2011 12:29:23 12/23/2011 07:34:56 [id number] Kaye Lindsey PA-C , [facility], [address] [place] [address] 01/05/2012 08:28:16 01/05/2012 09:29:20 [id number] Ammy Chou, OT Physical Therapy, [address] [address] 01/05/2012 12:21:57 01/05/2012 13:09:59 [id number] Ammy Chou, OT Physical Therapy, [address] [address] 01/14/2012 14:16:39 01/15/2012 07:40:59 [id number] Kaye Lindsey PA-C , [facility], [address] [place] [address] 01/19/2012 07:32:37 01/19/2012 09:15:36 [id number] Cyndi Flores, Ms, Rdn, Ldn, CDE Nutrition -[address] [address] 02/10/2012 08:18:57 02/10/2012 09:08:04 [id number] Wallace Sweet MD , [facility], [address] [place] [address] 07/28/2012 08:56:22 07/28/2012 09:46:12 [id number] JUANIS Farfan , [facility], [address] [place] [address] 10/05/2012 11:05:15 10/05/2012 15:55:29 [id number] Wallace Sweet MD , [facility], [address] [place] [address] 06/13/2013 08:52:36 06/13/2013 09:57:34 Influenza vaccine needed [id number] 106 Mixed hyperlipidemia 122577949 continue to work on diet and exercise as discussed Uncontroll ed type 2 diabetes mellitus 565555110 Benign ess ential hypertension 4938137 continue to work on diet ,exercisea nd lowering salt intake as discussed [id number] JUANIS Law-AIDA , [facility], [address] [place] [address] 08/04/2013 15:13:51 08/07/2013 13:22:35 Impacted cerumen 93658696 irrigated in clinic no complicati ons. [id number] MD CLAUDE Bazan, [facility], [address] [place] [address] 03/26/2014 16:14:43 03/26/2014 16:49:19 Benign essential hypertension 1565498 Mixed hyperlipidemia 070817756 Uncontroll ed type 2 diabetes mellitus 851471673 Renal diso rder due to type 2 diabetes mellitus 495954399 Benign par oxysmal positional vertigo 203485803 [id number] Domenic Collazo MD Endocrino log, [address] [address] 04/04/2014 13:14:50 04/04/2014 15:08:28 Uncontrolled type 2 diabetes mellitus 933663225 -continue metformin 1g 2x/d -stop glyburide, change to glipizide 10mg 2x/d -start victoza 0.6 mg once daily for 1 week; then increase to 1.2 mg once daily Obesity 362232382 Essential hypertension 53418775 -lisinopri l Mixed hyperlipidemia 527185331 -lovastati n [id number] Taisha Johnston [facility], [address] [address] 04/16/2014 16:18:50 04/17/2014 08:27:41 Benign paroxysmal positional vertigo 780937302 [id number] Taisha Johnston Physical [facility], [address] [address] 2014 12:01:49 2014 13:34:38 Benign paroxysmal positional vertigo 899985927 [id number] Domenic Collazo MD Endocrino log, [address] [address] 05/04/2014 13:01:46 05/04/2014 14:08:08 Uncontrolled type 2 diabetes mellitus 065174789 -continue metformin 1g 2x/d -continue glipizide 10mg 1 x/d, may decrease to 1/2 tab daily if less than 100mg/dL after taking this medicine and then stop if still less than 100mg/dL -continue victoza 1.2 mg subcut once daily, may then decrease and stop if regularly less than 100mg/dL Obesity 048895406 Essential hypertension 82506784 -lisinopri l Mixed hyperlipidemia 768567209 -lovastati n [id number] POORNIMA Peralta FP, [facility], [address] [place] [address] 06/06/2014 08:18:24 06/08/2014 08:28:39 Excessive cerumen in ear canal 859795073 recurrence [id number] Wallace Sweet MD , [facility], [address] [place] [address] 08/13/2014 16:22:39 08/13/2014 17:04:10 Benign essential hypertension 2816263 Mixed hyperlipidemia 102809246 Type 2 sailaja betes mellitus without complication 045550918 [id number] JUANIS Farfan , [facility], [address] [place] [address] 11/14/2014 16:22:50 11/14/2014 16:48:58 Pain in right lower limb 718028046 upper leg, post fall on ice 2-3 months, not fulle recovered, will refer to PT for further evaluation , advised to use ice alternatin g w/heat x 20 m. X 3-4 x/day, Ibuprofen 200 mg 3 tabs TID for the next 7-10d, take w/food, F/U PRN, may need further evaluation w/Orthoped ist, agrees w/plan. [id number] Wallace Sweet MD , [facility], [address] [place] [address] 12/10/2014 16:14:55 12/10/2014 16:41:53 Mixed hyperlipidemia 184350577 Benign ess ential hypertension 7816489 Type 2 sailaja betes mellitus without complication 707555425 Obesity 882608946 [id number] Mary Kate Weir MD , [facility], [address] [place] [address] 03/07/2015 16:40:20 03/08/2015 11:19:32 Lifestyle 836235184 Impacted cerumen 69296241 bilateral impacted cerumen, rinsed out with resolution . [id number] Wallaec Sweet MD , [facility], [address] [place] [address] 07/08/2015 08:36:19 07/08/2015 09:15:01 Mixed hyperlipidemia 818717098 E78.2 Benign ess ential hypertension 1451039 I10 Uncontroll ed type 2 diabetes mellitus 625257854 E11.65 Acute situ ational disturbance 431204704 F43.20 Chest pain 45299770 R07. 9 [id number] Wallace Sweet MD , [facility], [address] [place] [address] 10/07/2015 16:18:20 10/07/2015 16:49:45 Benign essential hypertension 4356201 I10 . Mixed hyperlipidemia 267 462354 E78.2 continue to work on diet and exercise as discussed Uncontroll ed type 2 diabetes mellitus 999310710 E11.65 Obesity 777903382 E66.9 Impotence 527779733 N52. 9 [id number] Sarika Rose, RN, BSN, [facility] DM Education , [address] [address] 10/16/2015 15:17:49 10/16/2015 16:45:28 Uncontrolled type 2 diabetes mellitus 376100910 E11.65 [id number] JUANIS Law-BC , [facility], [address] [place] [address] 12/17/2015 10:18:10 12/18/2015 10:57:34 Impacted cerumen 54316033 H61.23 irrigated without issue in clinic. [id number] Wallace Sweet MD , [facility], [address] [place] [address] 01/06/2016 15:21:50 01/06/2016 16:18:35 Benign essential hypertension 0020841 I10 Blood pressure at goal Mixed hyperlipidemia 267 067501 E78.2 continue to work on diet and exercise as discussed Uncontroll ed type 2 diabetes mellitus 031626626 E11.65 [id number] Sarika Rose RN, BSN, [facility] [employer] Education , [address] [address] 01/15/2016 15:14:26 01/21/2016 12:10:03 Uncontrolled type 2 diabetes mellitus 759620440 E11.65 Met with Wilberto today for diabetes [...] of regular physical activity on blood sugars. [id number] Sarika Rose RN, BSN, [facility] DM Education , [facility] [address] [place] [address] 03/11/2016 14:57:26 03/11/2016 16:55:46 Uncontrolled type 2 diabetes mellitus 279445154 E11.65 Met with Wilberto today for follow [...] Other strategies for [facility] heart [facility]. [id number] Wallace Sweet MD , [facility], [address] [place] [address] 04/28/2016 08:47:08 04/28/2016 10:07:36 Adult health examination 071688226 Z00.00 see Risk Assessment and Lifestyle Change Counseling section above Counseling 732343552 Z71 .9 Mixed hyperlipidemia 267 520103 E78.2 continue to work on diet and exercise as discussed Uncontroll ed type 2 diabetes mellitus 918100960 E11.65 Impotence of organic origin 227651733 N52.9 Family his tory of malignant neoplasm of thyroid 267037482 Z80.8 [id number] Erna Villalpando OD Eye Care, [facility] [address] [place] [address] 06/03/2016 14:09:37 06/03/2016 16:01:10 Type 2 diabetes mellitus without complication 593298600 E11.9 uncontroll ed, no diabetic retinopath y OU, pt ed, encouraged good BS control to maintain good eye health and vision. RTC 1 yr CEE or sooner with vision changes. [id number] Wallace Sweet MD , [facility], [address] [place] [address] 08/04/2016 08:48:09 08/04/2016 09:18:49 Benign essential hypertension 5503820 I10 Mixed hyperlipidemia 267 617318 E78.2 Uncontroll ed type 2 diabetes mellitus 015139221 E11.65 Disorder o f nervous system due to type 2 diabetes mellitus 887971788 E11.40 Overweight 285341889 E66 .3 [id number] Sarika Rose RN, BSN, [facility] DM Education , [facility] [address] [place] [address] 09/01/2016 15:35:52 09/02/2016 09:08:30 Uncontrolled type 2 diabetes mellitus 442343998 E11.65 Met with Wilberto today for follow up of his diabetes education, kindly referred by Dr. Sweet. Wilberto has had diabetes for about 10 years now. Most recently, his A1C was 10.2% in [facility]. We reviewed how he has had [...] limiting cardiovasc ular risk. Other strategies for [facility] [employer]. [id number] John Luna MD , [facility], [address] [place] [address] 09/19/2016 13:00:28 09/19/2016 15:23:49 Impacted cerumen 74630804 H61.23 Otalgia 47487061 H92.03 likley due to cerumen [id number] Mani Padron MD , [facility], [address] [place] [address] 11/23/2016 11:29:28 11/24/2016 13:05:04 Acute bronchitis 38110597 J20.9 OOW for 2 days , tessalon perles, rest, liquids [id number] Wallace Sweet MD , [facility], [address] [place] [address] 11/24/2016 08:39:51 11/24/2016 09:46:06 Benign essential hypertension 2226043 I10 Mixed hyperlipidemia 267 823058 E78.2 Uncontroll ed type 2 diabetes mellitus 339132581 E11.65 [id number] Sarika Rose RN, BSN, [facility] DM Education , [facility] [address] [place] [address] 01/05/2017 14:22:22 01/11/2017 14:06:39 Uncontrolled type 2 diabetes mellitus 633388246 E11.65 Met with Wilberto today for follow [...] more. He reports he is flying to [place] in 2 weeks and is nervous about [...] once we decide what to prescribe him. [id number] Wallace Sweet MD , [facility], [address] [place] [address] 03/08/2017 16:58:56 03/08/2017 17:43:47 Benign essential hypertension 6267351 I10 Mixed hyperlipidemia 267 948549 E78.2 Uncontroll ed type 2 diabetes mellitus 307436824 E11.65 [id number] Sarika Rose RN, BSDIANE Lopez DM Education , [facility] [address] [place] [address] 03/16/2017 15:32:36 03/18/2017 08:48:45 Uncontrolled type 2 diabetes mellitus 721576780 E11.65 Met with Wilberto today for follow up of his diabetes education, kindly referred by Dr. Sweet. Wilebrto has had diabetes for about 10 years [...] testing often. He reports his trip to [place] went well during the summer when he was nervous he would eat too much food while he was away. He was at a wedding. He reports he tends to gain 15 lbs when he is in [place] and this was the first trip he did not gain any weight because he continued to be careful while he was away. He continues to takeMetfor min 1,000 mg BID, Glipizide 10 mg BID and Victoza 1.8 mg QD. He was [facility]. He was [...] of regular physical activity on blood sugars. [id number] Wallace Sweet MD , [facility], [address] [place] [address] 07/13/2017 14:38:02 07/14/2017 08:06:17 Benign essential hypertension 5137059 I10 Mixed hyperlipidemia 267 886395 E78.2 Uncontroll ed type 2 diabetes mellitus 637327842 E11.65 [id number] JUANIS Farfan , [facility], [address] [place] [address] 07/19/2017 09:59:16 07/19/2017 11:23:32 Screening for malignant neoplasm of colon 708492182 Z12.11 Referral for a DIRECT booked colonoscop y. This patient is a healthy ASA Class 1 or 2 patient (only mild systemic disease), or a STABLE, well controlled insulin dependent diabetic. They do not have serious cardiac disease ie NE/angiopl asty within 1 year, symptomati c CHF; renal failure with CKD 4 or 5; take Coumadin, Plavix, Aggrenox, etc. Acholic stool 77825546 R 19.5 Abnormal colored elif, labs & US ordered as written below, further treatment pending results. Impacted cerumen 6978518 6 H61.23 Both ears successful ly cleared of cerumen. Advised to use Debrox gtts. to keep ears patent. [id number] Meng Cruz MD , [facility], [address] [place] [address] 09/27/2017 11:53:22 09/28/2017 09:35:28 Acute bronchitis 12022564 J20.9 Reassured. Lungs completely clear. Enc force fluids, steam inhalation prn, adequate rest. OK to continue otc cold/cough meds prn for symptom management . F/u here if not gradually improving, symptoms worsening, especially if develops fevers or increased SOB. Codeine cough syrup prn primarily for night time use. Warned can cause drowsiness . [id number] Lianna Almazan D.O. , [facility], [address] [place] [address] 10/01/2017 14:36:18 10/01/2017 16:03:25 Acute low back pain 836070981 M54.5 09/25 came out with cold/bronc hitis [...] alternate hot/cold packs. follow up 4-5 days. [id number] John Luna MD , [facility], [address] [place] [address] 11/13/2017 09:44:36 11/13/2017 11:25:52 Dysfunction of eustachian tube 52369738 H69.91 supportive care f/u if not improved in 2-3 weks [id number] Meng Cruz MD , [facility], [address] [place] [address] 01/07/2018 14:46:25 01/10/2018 08:54:41 Hearing loss 49686978 H91.91 Impacted cerumen 0947286 6 H61.23 Nurse in as above. TM's [...] phone next week. Consider ENT/audiol ogy referral. [id number] Wallace Sweet MD , [facility], [address] [place] [address] 04/19/2018 13:34:53 04/19/2018 14:18:10 Benign essential hypertension 1025858 I10 Mixed hyperlipidemia 267 746153 E78.2 Uncontroll ed type 2 diabetes mellitus 069052874 E11.65 Hearing loss 39695458 H9 1.91 Anxiety 57536764 F41.9 [id number] Sarika Rose RN, BSN, [facility] DM Education , [facility] [address] [place] [address] 06/27/2018 08:42:53 07/04/2018 09:48:45 Uncontrolled type 2 diabetes mellitus 633478160 E11.65 Met with Wilberto clark for follow [...] of regular physical activity on blood sugars. [id number] Sarika Rose RN, BSN, [facility] DM Education , [facility] [address] [place] [address] 08/02/2018 07:50:46 08/02/2018 11:32:49 Uncontrolled type 2 diabetes mellitus 097253893 E11.65 Met with Wilberto clark for follow [...] strategies for [facility] heart health. [id number] Erna Villalpando, [facility], [facility] [address] [place] [address] 08/02/2018 09:03:25 08/02/2018 15:56:51 Type 2 diabetes mellitus without complication 705353527 E11.9 uncontroll ed, no diabetic retinopath y OU, pt ed, encouraged good BS control to maintain good eye health and vision. RTC 1 yr CEE or sooner with vision changes. [id number] John Luna MD , [facility], [address] [place] [address] 10/05/2018 13:03:14 10/06/2018 08:27:14 Uncontrolled type 2 diabetes mellitus 978937681 E11.65 Pt to do labs, f/u w/ PCP in the next month Active or passive immunization 369339147 Z23 Pt declined TD for today despite knowing the risk of disease and Mixed hyperlipidemia 267 280390 E78.2 Pt to have labs done and schedule w/ PCP within the next month- discussed goal is LDL < 100 Impacted cerumen 9037932 6 H61.23 Bilateral impacted cerumen- ear lavage done Essential hypertension 55700426 I10 Pt to have labs done and schedule w/ PCP within the next month Neuropathy due to diabetes mellitus 942707858 E11.40 pt states- chronic- reviewed improved control of BS's will decrease symptoms. [id number] Wallace Sweet MD , [facility], [address] [place] [address] 03/30/2019 08:30:29 03/30/2019 09:12:31 Mixed hyperlipidemia 749588531 E78.2 Active or passive immunization 348667135 Z23 Benign ess ential hypertension 2272259 I10 Neuropathy due to diabetes mellitus 520756608 E11.40 Uncontroll ed type 2 diabetes mellitus 253617630 E11.65 [id number] Sarika Rose RN, BSN, [facility] DM Education , [address] [address] 05/04/2019 08:44:36 05/05/2019 12:08:07 Uncontrolled type 2 diabetes mellitus 765097249 E11.65 Met with Wilberto today for follow [...] Other strategies for [facility] heart [employer]. [id number] Gloria Leonard MD , [facility], [address] [place] [address] 05/23/2019 10:04:58 05/23/2019 15:19:11 Active or passive immunization 005079069 Z23 Asymmetric al sensorineural hearing loss 359498065 H90.5 pt will call for appt- printed the referral from Dr Sweet earlier this year so he can callhe never followed updoes not feel sx have changed Impacted c erumen of bilateral ears 3603631942 429643 H61.23 irrigation todaycompl etely cleared after several attempts [id number] John Luna MD , [facility], [address] [place] [address] 07/06/2019 08:16:55 07/06/2019 13:42:42 Acute upper respiratory infection 51953038 J06.9 Educated patient that URI is a [...] or failure to resolve in 2-4 weeks. [id number] Sarika Rose, RN, BSN, [facility] DM Education , [facility] [address] [place] [address] 07/12/2019 13:14:32 07/17/2019 11:36:40 Uncontrolled type 2 diabetes mellitus 692202677 E11.65 Met with Wilberto and his today [...] diabetes is progressiv e and medication s policy change clerk time (which includes insulin). Monitoring : Appropriat e times to test blood sugar and target blood sugars. Physical Activity : Introducti on to its importance . Effects of regular physical activity on blood sugars. Chronic Complicati ons: Introducti on to long-term effects, Importance of ABCs (A1c, Blood pressure and Cholestero l control) in limiting cardiovasc ular risk. Other strategies for [facility]. Reviewed the benefits of insulin and how he will need a long acting insulin before we start him on meal time insulin. [id number] Sarika Rose RN, BSN, [facility] DM Education , [facility] [address] [facility] [place] [address] 08/23/2019 12:54:55 08/23/2019 15:28:53 Uncontrolled type 2 diabetes mellitus 226701798 E11.65 Met with Wilberto and his today for diabetes education, kindly referred by Dr. Sweet.-He has had diabetes for about 10 years now.-Just arrived last week from [place]. No fever, no cough. -Last A1C was [...] days). 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 He is working 13 hours per [...] diabetes is progressiv e and medication s policy change clerk time (which includes insulin). Monitoring : Appropriat e times to test blood sugar and target blood sugars.Chr onic Complicati ons: Introducti on to long-term effects, Importance of ABCs (A1c, Blood pressure and Cholestero l control) in limiting cardiovasc ular risk. Other strategies for [facility] [employer]. [id number] Wallace Sweet MD , [facility], [address] [place] [address] 08/24/2019 10:34:06 08/24/2019 17:49:12 Rib pain 598874594 R07.81 s/p fall. Advised compressio n brace and ibuprofen. RTC for worsening pain. [id number] Sarika Rose RN, BSN, [facility] DM Education , [facility] [address] [place] [address] 10/19/2019 09:06:19 10/20/2019 09:04:53 Uncontrolled type 2 diabetes mellitus 751635708 E11.65 -Virtual Appt via [email or web address] due to COVID-19 pandemic.- Kindly referred by [...] and the benefits for his blood sugars. [id number] Sarika Rose RN, BSN, [facility] DM Education , [facility] [address] [place] [address] 11/30/2019 10:15:19 12/01/2019 09:18:58 Uncontrolled type 2 diabetes mellitus 527583879 E11.65 -Virtual Appt via phone due to [...] that the provider location is not at [facility] Patient location: home During the visit the patient s medical history and medical record were reviewed. The patient was notified to call our office for worsening or urgent symptoms. [id number] Wallace Sweet MD , [facility], [address] [place] [address] 03/22/2020 10:46:30 03/25/2020 09:35:39 Mixed hyperlipidemia 717031010 E78.2 Essential hypertension 46029834 I10 Uncontroll ed type 2 diabetes mellitus 410770901 E11.65 [id number] Meng Cruz MD , [facility], [address] [place] [address] 06/13/2020 10:08:22 06/17/2020 10:27:30 Muscle pain 83437243 M79.10 advised ample rest and hydration and gentle movement. RTC for worsening/ persisting sx. [id number] Meng Cruz MD , [facility], [address] [place] [address] 06/25/2020 14:01:39 06/26/2020 13:07:05 COVID-19 455340490 U07.1 Right sided headache lingering. No red flags. Advised ample rest, hydration , OTC migrelief. F/U in 1 week or sooner for worsening sx. [id number] Meng Cruz MD , [facility], [address] [place] [address] 07/02/2020 11:31:22 07/03/2020 14:29:04 SARS-CoV-2 780780971 U07.1 MEDINA has resolved. Asymptomat ic. Back at work. RTC for concerning sx. [id number] Sarika Rose RN, BSN, [facility] , [facility] [address] [facility] [place] [address] 08/22/2020 09:04:35 08/22/2020 10:47:49 Uncontrolled type 2 diabetes mellitus 186149356 E11.65 -Virtual Appt via phone due to [...] 180 mg/dl. -He watched on Youtube that long-term use of Metformin causes B12 deficiency , [...] doing it correctly when he started it. [id number] Wallace Sweet MD , [facility], [address] [place] [address] 12/30/2020 10:35:47 12/30/2020 11:37:27 Mixed hyperlipidemia 864156042 E78.2 Essential hypertension 63134373 I10 Neuropathy due to diabetes mellitus 442427821 E11.40 [id number] Sarika Rose RN, BSN, [facility] DM Education , [facility] [address] [place] [address] 01/28/2021 08:11:07 01/31/2021 15:37:06 Uncontrolled type 2 diabetes mellitus 107088775 E11.65 -Virtual Appt via [employer] due to COVID-19 pandemic. -Kindly referred by [...] his glucose more often. Concerned about his director long term care affects of diabetes, as he has been elevated with high A1C for many years. He likely needs short acting insulin with meals. Will discuss with Dr. Sweet about starting Humalog or Novolog. Did not get a chance to discuss this with Wilberto today and will discuss this at our next visit. [id number] Wallace Sweet MD , [facility], [address]ICE [address] [place] [address] 04/03/2021 08:49:27 04/03/2021 09:15:23 Essential hypertension 48846653 I10 Mixed hyperlipidemia 267 746364 E78.2 Uncontroll ed type 2 diabetes mellitus 208938127 E11.65 [id number] Sarika Rose RN, BSN, [facility] DM Education , [facility] [address] [place] [address] 04/08/2021 09:03:28 04/10/2021 12:59:38 Uncontrolled type 2 diabetes mellitus 596060343 E11.65 -Virtual Appt via [employer] due to COVID-19 pandemic. -Kindly referred by [...] it. He bought a toe guard from [employer]. At one point, he had to get custom made, from [employer] (about 10 years ago). As soon as [...] down blood sugars. FU in 1 month. 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 refer to retina. 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 No DR OS. No CSME OU. Presbyopia 96141532 H52. 4 ok to cont with OTC readers. [id number] Sarika Rose, RN, BSN, [facility] DM Education , [facility] [address] [place] [address] 07/14/2021 09:09:17 07/15/2021 09:52:12 Uncontrolled type 2 diabetes mellitus 201172847 E11.65 -Virtual Appt via over the phone due to COVID-19 pandemic. Pt. tried connecting to [employer], however, it would not connect (he has [...] wax in the past. Tried to call [facility] to have it removed, however, was told that [facility] is no longer doing this. About 3 [...] in the past. Wants to see a director call for it. There is a referral for a director call from 04/03, encouraged he call to schedule [...] this month. Schedule an appt with the director call . Call insurance to find out if [...] requiremen ts to go on a sensor. [id number] Gloria Leonard MD Podiatry, [facility] [address] [place] [address] 08/05/2021 10:29:51 08/05/2021 11:30:28 Disorder of nervous system due to type 2 diabetes mellitus 353947849 E11.49 Pronation of foot 775050 03 M21.6X9 [id number] Sarika Rose RN, BSN, [facility] DM Education , [facility] [address] [place] [address] 09/16/2021 10:02:55 09/19/2021 11:05:31 Uncontrolled type 2 diabetes mellitus 912012731 E11.65 -Virtual Appt via [employer] today for diabetes education. -Kindly referred by [...] guard for his large calluses. Saw a director call and was told it was due to [...] until fasting glucose are below 130 mg/dl. [id number] Wallace Sweet MD , [facility], [address] [place] [address] 12/01/2021 10:39:30 12/01/2021 11:12:28 Adult health examination 127767357 Z00.00 see Risk Assessment and Lifestyle Change Counseling section above Counseling 914495976 Z71 .9 including cardivascu lar risk reduction counseling Depression screening 171 156300 Z13.31 depression screening tool administer ed, entered into emr, scored and discussed, time greater than 7.5 minutes Screening for alcohol abuse 600835829 Z13.39 Essential hypertension 94262925 I10 Mixed hyperlipidemia 267 945779 E78.2 Active or passive immunization 365758115 Z23 Uncontroll ed type 2 diabetes mellitus 779854629 E11.65 Impacted c erumen of bilateral ears 2512667485 507399 H61.23 [id number] Sarika Rose RN, BSN, [facility] DM [facility] , [facility] [address] [facility] [place] [address] 12/24/2021 09:05:34 01/05/2022 16:28:55 Uncontrolled type 2 diabetes mellitus 842434334 E11.65 -Virtual Appt via over [employer] today for diabetes education. -Kindly referred by [...] have some numbness and tingling, saw a director call . He gets calluses on his big toe. He has flat feet and this causes the calluses. He puts a toe guard on them when walking.-Makayla barroso was a year ago. He went to [facility] eye doctor. He was told that he [...] said that Dexcom is not covered at [employer], however, it is worth calling insurance to find out if it is covered with a DME and how much is the co-pay. The Freestyle Pushpa sensor is covered with [employer], however the co-pay is $100 per month. [...] and the preferred DME is [facility]. [id number] Erna Villalpando, OD Eye Care, [address] [address] 01/08/2022 08:44:00 01/09/2022 16:26:43 Mild nonproliferative retinopathy due to diabetes mellitus 532778577 E11.3291 uncontroll ed T2DM x 16 years, started insulin 2 weeks ago. mild NPDR OU, trace ME OS. new finding. PED resolved OS. refer to retina in 1-2 weeks. [id number] Sarika Rose RN, BSN, [facility] DM Education , [address] [address] 01/21/2022 09:03:01 01/21/2022 12:26:35 Uncontrolled type 2 diabetes mellitus 282410226 E11.65 -Virtual Appt via over [employer] today for diabetes education. -Kindly referred by [...] connect his Freestyle Pushpa 2 sensor to [facility]'s [employer] account today. Download of sensor reveals:-A verage [...] he has eaten something. FU in February. [id number] Sarika Rose RN, BSN, [facility] DM Education , [address] [address] 02/18/2022 09:43:48 02/18/2022 10:30:23 Uncontrolled type 2 diabetes mellitus 527018977 E11.65 -Virtual Appt via over the phone [...] burp and he had diarrhea. -Connected to [employer] and able to review his download today: [...] appt in person. FU in 1 month. [id number] Sarika Rose RN, BSN, [facility] DM [facility] , [address] [address] 04/02/2022 10:05:34 04/02/2022 13:10:29 Uncontrolled type 2 diabetes mellitus 214358417 E11.65 -Virtual Appt via [employer] today. -Kindly referred by Dr. Sweet. -He [...] mg/dl.Carb ohydrate Ratio: 5 grams -Connected to [employer] and able to review his download today: [...] in 1 month to review sensor download. [id number] Mary Kate Weir MD , [facility], [address] [place] [address] 04/06/2022 10:40:31 04/06/2022 16:07:56 Tinnitus of left ear 1794765191 106 H93.12 Temporoman dibular joint disorder 52336102 M26.609 you can use both ibuprofen and [...] the area hurts more 2 hours after. [id number] Sheri Mata MD , [facility], [address] [place] [address] 06/18/2022 13:48:25 06/18/2022 14:18:13 Uncontrolled type 2 diabetes mellitus 448902779 E11.65 stressed importance of controllin g sugars or wounds will not healat risk of losing toes if we arent aggressive check a1c today, will call pt with results and possible med adjustment Diabetic foot ulcer 3710 77837 E13.621 start abx, refer to wound caresee above [id number] Sheri Mata MD , [facility], [address] [place] [address] 07/22/2022 14:28:48 07/22/2022 15:55:20 Uncontrolled type 2 diabetes mellitus 456448349 E11.65 stressed importance of controllin g sugars or wounds will not healat risk of losing toes if we arent aggressive last a1c 10.7contin ue meds, pt aggressive ly managingre peat a1c september, see me ronal grace message sent with info on nutrition consult name and number Diabetic foot ulcer 3710 44922 E13.621 slowly improvemen tcontinue with wound care [id number] Sheri Mata MD , [facility], [address] [place] [address] 08/10/2022 07:40:22 08/10/2022 08:42:21 Uncontrolled type 2 diabetes mellitus 161223009 E11.65 stressed importance of controllin g sugars [...] per month Neuropathy due to diabetes mellitus 937317509 E11.40 as above Diabetic foot ulcer 3710 64588 E13.621 slowly improvemen tcontinue with wound careMRI pending to rule out osteomyeli tis [id number] Sheri Mata MD , [facility], [address] [place] [address] 09/21/2022 14:38:30 09/21/2022 16:20:39 Essential hypertension 97064384 I10 well controlled on med Uncontroll ed type 2 diabetes mellitus 496511777 E11.65 a1c down to 7.9!contin ue diet, exercisewi ll back down lantus to avoid lows overnightc ontinue humalogrep eat labs, see me 3 monthsi will research berberine for safety Diabetic foot ulcer 3710 76111 E13.621 slowly improvemen tcontinue with wound care Health Concerns Section Related Observation LastModified by Organization Detai ls LastModified Time None Recorded Concern Status LastModified by Organization Details LastModified Time None Recorded Advance Directives Directive N: Payers Insurance Date Sequence Insurance Name Policy Number Policy Orozco Covered Member ID Orozco Member ID Guarantor Name 12/28/2022 1 [facility] [id number] Wilberto Aquino [facility] [id number] Wilberto Aquino [facility] 07/08/2015 1 *SELF PAY* Tata patricia Aquino [facility] 12/28/2022 2 [employer] [id number] Wilberto Aquino [facility] [id number] Wilberto Aquino [facility] 12/28/2022 1 [facility] [id number] Wilberto Aquino [facility] [id number] Wilberto Aquino [facility] 12/28/2022 1 [facility] [id number] Wilberto Aquino [facility] [id number] Wilberto Aquino [facility] 12/28/2022 1 [employer] Wilberto Aquino [facility] [id number] Wilberto Aquino [facility] 12/28/2022 1 [facility] ([facility] [id number] Wilberto Aquino [facility] [id number] Wilberto Conway
== END 2025-01-08 12:54 | disposition home or self-care (01) ==
LOC: HO.HCS 12:10
PROVIDERS: PCP Internal Medicine; Visit Provider Internal Medicine
DX: I25.10 Atherosclerotic heart disease of native coronary artery without angina pectoris (principal); E11.65 Type 2 diabetes mellitus with hyperglycemia; I10 Essential (primary) hypertension; E78.00 Pure hypercholesterolemia, unspecified
CPT/HCPCS: 99214; G2211

== ENCOUNTER 2025-02-05 07:46 | Outpatient (REF) | payer OTHER, SELFPAY ==
--- OUTSIDE RECORDS SUMMARY | 2025-02-05 07:49 | XMS_ITS | Encounter Summary ---
Author Organization [facility] Address [address] [place] [address] Phone Care Team Providers Care Airplane Pilot Chief Name Role Phone Wallace Sweet MD Primary Care Provider [phone] Encounter Details Date Type Department Care Team (Latest Contact Info) Description 09/02/2017 Transcribe Orders [facility] Laboratory [address] [place] [phone] Giovanni Kraus MD [address] [place] [id number] [email or web address] Steatohepatitis (Primary Dx) Social History Tobacco Use [...] EDT) SODIUM 137 133 - 146 mmol/L [facility] POTASSIUM 4.5 3.3 - 5.1 mmol/L [facility] CHLORIDE 98 96 - 108 mmol/L [facility] CO2 26 21 - 35 mmol/L [facility] BUN 14 6 - 19 mg/dL [facility] CREATININE 0.70 0.5 - 1.5 mg/dL [facility] GLUCOSE 255(H) 70 - 99 mg/dL [facility] ALBUMIN 4.8 3.9 - 4.8 g/dL [facility] TOTAL PROTEIN 7.7 6.5 - 8.0 g/dL [facility] CALCIUM 9.5 8.4 - 10.3 mg/dL [facility] ALKALINE PHOSPHATASE 90 39 - 117 U/L [facility] TOTAL BILIRUBIN 0.6 0.0 - 1.2 mg/dL [facility] AST 20 0 - 37 U/L [facility] ALT 28 0 - 40 U/L [facility] GLOBULIN 2.9 1 - 4.8 g/dL [facility] EGFR 109 >59 mL/min/1.7 3m2 [facility] Comment:If patient is black, multiply result by 1.159. The eGFR calculation has changed from the MDRD equation to the CKD-EPI equation as of August 17, 2017. ANION GAP 18 10 - 20 mmol/L [facility] Blood 09/02/2017 3:05 PM EDT 09/02/2017 3:08 PM EDT us Giovanni Kraus MD LAB BLOOD ORDERABLES Final Re sult [address] [id number] * CBC (09/02/2017 3:05 PM EDT) WBC 8.19 3.40 - 11.20 K/uL [facility] RBC 5.29 4.50 - 5.50 M/uL [facility] HGB 15.4 13.0 - 17.0 g/dL [facility] HCT 46.1 40.0 - 51.0 % [facility] PLT 311 130 - 400 K/uL [facility] MCV 87.1 79.0 - 98.0 [facility] MCH 29.1 27.0 - 34.8 pg [facility] MCHC 33.4 31.5 - 36.0 g/dL [facility] RDW 12.9 10.8 - 14.6 % [facility] MPV 10.8 9.4 - 12.4 [facility] NRBC 0.00 /100 WBCs [facility] ABSOLUTE NRBC 0.00 K/uL [facility] Blood 09/02/2017 3:05 PM EDT 09/02/2017 3:08 PM EDT us Giovanni Kraus MD LAB BLOOD ORDERABLES Final Re sult Performing Organization Address City/State/[facility] Co de Phone Number [facility] [address] [place] [address] documented in this encounter Visit Diagnoses Diagnosis Steatohepatitis- Primary Other chronic nonalcoholic liver disease documented in this encounter Care Teams Airplane Pilot Chief Relationship Specialty Start Date End Date Wallace Sweet MD [email or web address] PCP - General Family Medicine 09/02/17 documented as of this encounter Additional Source Comments The information contained in this document represents components of the legal health record. It is not the complete legal health record.[facility]
[2025-02-05 10:24] LABS: MANUAL DIFF FLAG NO
[2025-02-05 10:26] LABS: Appearance Urine Clear; Glucose Urine UA >=1000 mg/dL (Negative); PH 5.5 (5.0-9.0); Specific Gravity - Urine 1.025 (1.005-1.025); UMIC TRIGGER UACC YES
[2025-02-05 10:35] LABS: Hematocrit 47.5 % (42.0-52.0); Hemoglobin 15.4 g/dl (14.0-18.0); Imm Gran Abs Auto 0.03 X10*3/uL (0.00-0.03); Imm Gran Pct Auto 0.4 % (0.0-0.4); Lymphocytes Absolute Auto 2.0 X10*3/uL (1.2-4.9); Mean Corpuscular HGB Conc 32.4 g/dl (31.0-36.0); Mean Corpuscular Hemoglobin 29.6 pg (27.0-33.0); Mean Corpuscular Volume 91.2 fL (80.0-98.0); NRBC Abs Auto 0.000 X10*3/uL (0.0-0.012); NRBC Pct Auto 0.0 /100WBC (0.0-0.2); Platelet Count 325 X10*3/uL (160-400); Red Blood Count 5.21 X10*6/uL (4.60-5.80); Reticulocytes Absolute 0.057 X10*6/uL (0.026-0.095); White Blood Count 7.0 X10*3/uL (4.8-10.8)
[2025-02-05 10:52] LABS: Hemoglobin A1C 226.7094 umol/L; Total Hemoglobin (HGBA1C) 4002.7003 umol/L
[2025-02-05 11:01] LABS: Alanine Aminotransferase 17 U/L (0-40); Albumin Level 4.8 g/dL (3.5-5.0); Alkaline Phosphatase 99 U/L (39-117); Anion Gap 13 (12-20); Aspartate Amino Transferase 23 U/L (5-37); Blood Urea Nitrogen 15 mg/dL (9-16); Calcium 9.5 mg/dL (8.4-10.2); Carbon Dioxide 28 mmol/L (22-29); Chloride 105 mmol/L (96-108); Cholesterol 176 mg/dL (<200); Estimated Glomerular Filt Rate > 60; HDL Cholesterol 48 mg/dL (>40); Iron 62 mcg/dL (45-160); Percent Iron Saturation 22 % (15-50); Potassium 4.7 mmol/L (3.3-5.1); Sodium 141 mmol/L (135-145); Total Iron Binding Capacity 276 mcg/dL (228-428); Total Protein 7.4 g/dL (6.5-8.0); Triglycerides 180 mg/dL (<150); Unsaturated Iron Binding 214 ug/dL; Uric Acid 3.9 mg/dL (3.4-7.0)
[2025-02-05 11:02] LABS: Ferritin 86 ng/mL (20-250); Free T4 (Free Thyroxine) 1.13 ng/dL (0.71-1.85); Thyroid Stimulating Hormone 1.44 uIU/mL (0.32-4.0)
[2025-02-05 11:21] LABS: Folate 16.1 ng/mL (> or = 4.0); Vitamin B12 309 pg/mL (200-900)
== END 2025-02-05 07:47 | disposition home or self-care (01) ==
LOC: HO.HMGCLDS 07:46
PROVIDERS: PCP Internal Medicine; Visit Provider Internal Medicine
DX: Z12.5 Encounter for screening for malignant neoplasm of prostate (principal); E11.65 Type 2 diabetes mellitus with hyperglycemia; E78.00 Pure hypercholesterolemia, unspecified; R30.0 Dysuria
CPT/HCPCS: 36415; 80053; 80061; 81001; 82043; 82570; 82607; 82728; 82746; 83036; 83540; 84153; 84439; 84443; 84550; 85025; 85045

== ENCOUNTER 2025-03-14 09:43 | Outpatient (AMB) | payer OTHER, SELFPAY ==
[2025-03-14 09:55] VITALS: BP 138/70; PULSE 78; O2SAT 98; BMI 29.6
--- NOTE | 2025-03-14 09:55 | MHC.PC.OV ---
Vital Signs 03/14/25 09:55 Height 5 ft 10 in Weight 206 lb BMI 29.6 BP 138/70 Blood Pressure Location Lt brachial Position Sitting Pulse 78 Pulse Source Pulse Oximeter Pulse Oximetry (%) 98 Oxygen Delivery Method Room Air Intake Visit Reasons: cad, DM Allergies semaglutide (From Ozempic) Adverse Reaction (Intermediate, Verified 03/14/25 09:56) burping Medication List - Last Reconciled 03/14/25 by Seth Boyer MD aspirin (Adult Aspirin Regimen) 81 mg PO DAILY [Diabetic shoes As directed] empagliflozin (Jardiance) 25 mg PO DAILY flash glucose sensor (FreeStyle Pushpa 2 Sensor kit) USE DIRECTED TO MONITOR BLOOD GLUCOSE DAILY. CHANGE SENSOR EVERY 14 DAYS insulin glargine (Lantus Solostar U-100 Insulin) 40 units (0.4 mL) subcut QPM lisinopril 5 mg PO DAILY metformin 1,000 mg PO BID multivitamin 1 tab PO DAILY nitroglycerin 0.4 mg sublingual Q5M PRN rosuvastatin 40 mg PO DAILY tirzepatide (Mounjaro) 2.5 mg (0.5 mL) subcut QWEEK Tobacco use date assessed: 08/07/24 Dental Screening Dental Screen Date: 08/07/24 [facility] Medical History (Updated 12/04/24 @ 00:01 by Raul Jacob) Obesity (BMI 30-39.9) Blood pressure elevated without history of HTN Finger stiffness Trigger finger, left middle finger Trigger finger, left index finger Chest discomfort Trigger finger, right index finger Trigger finger, right middle finger Abnormal stress ECG with treadmill Diarrhea Asthma Surgical History Hx of cardiac cath Hx of tonsillectomy Aftercare following bilateral shoulder joint replacement surgery History of appendectomy Family History Mother Emphysema lung Father Heart failure Brother Substance use disorder Mental health disorder Brother No problems noted. Brother No problems noted. Sister No problems noted. Daughter No problems noted. Son No problems noted. Son No problems noted. Social History Housing: House Alcohol intake: current Alcohol intake frequency: a few times a week Alcohol type: beer Patient Tobacco Use Status: Never used Tobacco Tobacco use type: Cigarette e-Cigarette/Vaping Use: Never Used Second Hand Smoke Exposure: No service: No Current occupational status: employed Cognitive needs: No Hearing needs: No Vision needs: Yes (Glasses) Questionnaire Thrive Questionnaire Date Thrive assessed: 11/13/24 I am a: Patient What is your living situation today?: I have a steady place to live Within the past 12 months, did the food you bought not last and you didn't have the money to get more?: Never true Within the past 12 months, did you worry whether your food would run out before you got money to buy more?: Never true Do you have trouble paying for medicines?: No Do you have trouble getting transportation to medical appointments?: No Do you have trouble paying your heating and electricity bill?: No Do you have trouble taking care of your child, family member or friend?: No Do you have trouble with day-to-day activities such as bathing, preparing meals, shopping, managing finances, etc.?: No Are you currently unemployed and looking for a job?: No Are you interested in more education?: No Please select the resources that you would like help with: None Currently or been in a relationship where the following occur: No concerns reported THRIVE Score: 0 ELIU-7 AMB Questionnaire ELIU-7 Date ELIU - 7 assessed: 08/07/24 Source: Developed by Drs. Yovani Collazo, Ese Baxter, Deion Estrella and colleagues, with an educational valeriy from [employer]. Physical exam (Primary Care) Vital Signs: Last Vital Signs Pulse 78 03/14/25 09:55 BP 138/70 03/14/25 09:55 Pulse Ox 98 03/14/25 09:55 Oxygen Delivery Method Room Air 03/14/25 09:55 BMI result Body Mass Index 29.6 Tobacco/Smoking Status: Tobacco use Status Tobacco use date assessed 08/07/24 03/14/25 09:56 Patient Tobacco Use Status Never used Tobacco 03/14/25 09:56 Tobacco use type Cigarette 03/14/25 09:56 e-Cigarette/Vaping Use Never Used 03/14/25 09:56 Thrive Assessment: Date of Thrive Assessment Date Thrive assessed 11/13/24 03/14/25 09:56 Currently or been in a relationship where the following occur: No concerns reported Const General: alert; No acute distress HENMT Other: Impacted cerumen bilateral Eyes Conjunctivae: conjunctivae normal Resp Auscultation: clear to auscultation bilaterally Cardio Rate: regular rate Rhythm: regular rhythm GI Inspection: Yes normal to inspection Extrem General: Yes normal to inspection and No edema Ankle/foot/toe images:  1. Subcentimeter laceration on the left foot no open sores Coding Level of Care Code Est Pt Level 4 (57773) Complex EM visit Add On G2211 Diagnoses Atherosclerotic cardiovascular disease I25.10 Primary hypertension I10 Hypercholesterolemia E78.00 Type 2 diabetes mellitus with hyperglycemia E11.65 Impacted cerumen of both ears H61.23 Assessment & Plan Assessment & Plan (1) Atherosclerotic cardiovascular disease: Code(s): I25.10 - Atherosclerotic heart disease of [place] coronary artery without angina pectoris Category: Medical Plan: Control the cholesterol, weight, blood pressure, diabetes patient in is on aspirin 81 mg once a day beta harsh was taken off due to feeling dizzy. (2) Primary hypertension: Code(s): I10 - Essential (primary) hypertension Category: Medical Plan: Continue with blood pressure medication. Decrease salt intake and exercise on lisinopril 5 mg once a day (3) Hypercholesterolemia: Code(s): E78.00 - Pure hypercholesterolemia, unspecified Category: Medical Plan: Avoid fried foods, chicken skin, eggs, butter margarine, pastries and meat. Be it pork or beef they have a lot of cholesterol patient is on atorvastatin 80 mg once a day LDL goal of less than 70 and triglyceride of less than 150 (4) Type 2 diabetes mellitus with hyperglycemia: Comment: [facility] Code(s): E11.65 - Type 2 diabetes mellitus with hyperglycemia Category: Medical Plan: Decrease the amount of carbohydrate intake, pasta, bread, rice and potatoes are all sugar and that is aside from all the sweet stuff, remember that fruits are good but they are Sweet also. Hemoglobin A1c goal of less than 6.5. Patient is on Jardiance 25 mg once a day Lantus at 40 units once a day metformin a 1000 mg twice a day [facility] Ophthalmology (5) Impacted cerumen of both ears: Code(s): H61.23 - Impacted cerumen, bilateral Category: Medical Plan History of Present Illness The patient is a 59-year-old male presenting for a follow-up visit for management of chronic conditions including diabetes mellitus, hypercholesterolemia, hypertension, and coronary artery disease. The patient has a history of diabetes mellitus with a recent hemoglobin A1c of 7.3, indicating suboptimal control. He is currently on Jardiance, Lantus, and metformin, with previous issues using Ozempic due to gastrointestinal side effects. The patient has been advised to maintain a diet low in carbohydrates and sugars to aid in glycemic control. The patient also has hypercholesterolemia with an LDL level of 92 mg/dL, which is above the target of less than 70 mg/dL due to his coronary artery disease. He is on atorvastatin but may consider switching to rosuvastatin for better lipid control. Hypertension is managed with lisinopril, and blood pressure is reported to be well-controlled. The patient has a history of coronary artery disease with stable angina and multivessel involvement. He is on aspirin and statins, and was taken off beta blockers due to dizziness. An echocardiogram showed an ejection fraction of 67% with no valvular abnormalities. The patient reports a sore on his toe, which was identified as a small slit with no signs of infection. He has retinopathy related to diabetes and is advised to follow up with ophthalmology regularly. Health Maintenance - Colon cancer screening: Last colonoscopy in June 2022 - Ophthalmology follow-up for diabetic retinopathy - Vaccinations: Shingles vaccine received, flu vaccine recommended for March Social History - Exercise: Engages in cardio but paused due to foot sore - Diet: Advised to avoid high carbohydrate foods such as pasta, bread, and sweets Review of Systems - Cardiovascular: Reports dizziness with beta harsh use, denies chest pain - Endocrine: Reports difficulty in maintaining blood sugar levels, denies hypoglycemia - Musculoskeletal: Reports sore on toe, denies swelling or redness - Ophthalmologic: Reports retinopathy, denies vision changes Physical Exam - Cardiovascular: Regular rate and rhythm, no murmurs, rubs, or gallops noted - Musculoskeletal: Examination of the toe revealed a small slit, not open, with no signs of infection - Ears: Cerumen impaction noted, approximately 50% in one ear and 60% in the other Results - Echocardiogram: Ejection fraction of 67%, no valvular abnormalities - Blood work (January 2025): Normal blood count, electrolytes, and renal function; blood sugar 114 mg/dL, hemoglobin A1c 7.3% - Lipid panel: LDL 92 mg/dL, triglycerides 180 mg/dL Plan Patient was informed and verbally consented to the use of an ambient scribe for clinic note documentation during this visit. 1. Diabetes Mellitus The patient is currently on Jardiance, Lantus, and metformin for diabetes management, with a hemoglobin A1c of 7.3%. Dietary modifications to reduce carbohydrate intake have been advised. Consideration of Mounjaro as an additional medication was discussed, pending insurance approval. 2. Hypercholesterolemia The patient is on atorvastatin with an LDL level of 92 mg/dL, above the target of less than 70 mg/dL. Switching to rosuvastatin was considered to achieve better lipid control. 3. Hypertension Hypertension is managed with lisinopril, and blood pressure is reported to be well-controlled. 4. Coronary Artery Disease The patient has stable angina and multivessel coronary artery disease, managed with aspirin and statins. Beta blockers were discontinued due to dizziness. Continued cardiac rehabilitation was advised. 5. Retinopathy The patient has diabetic retinopathy and is advised to follow up with ophthalmology regularly. 6. Sore On Toe The patient reports a sore on his toe, which was identified as a small slit with no signs of infection. Monitoring and proper foot care were advised to prevent complications. Discussion Notes During the visit, we discussed the management of the patient's diabetes, including the potential addition of Mounjaro pending insurance approval. We also reviewed the patient's lipid levels and considered switching from atorvastatin to rosuvastatin to better achieve target LDL levels. The patient was advised to continue cardiac rehabilitation and to monitor the sore on his toe closely. We emphasized the importance of regular ophthalmology follow-ups due to retinopathy and discussed the benefits of maintaining a low-carbohydrate diet to aid in glycemic control. Vaccination updates were also reviewed, with a recommendation for a flu shot in March. Patient Instructions - Continue taking Jardiance, Lantus, and metformin as prescribed. - Follow a low-carbohydrate diet to help manage blood sugar levels. - Monitor the sore on your toe and seek medical attention if it worsens. - Schedule regular follow-ups with ophthalmology for retinopathy management. - Consider getting a flu shot in March. Orders: Orders Comprehensive Met. Panel 3 Months E78.00 - Pure hypercholesterolemia, unspecified Hemoglobin A1c 3 Months E78.00 - Pure hypercholesterolemia, unspecified Lipid Panel 3 Months E78.00 - Pure hypercholesterolemia, unspecified Medications: New tirzepatide (Mounjaro) for 4 weeks 2.5 mg (0.5 mL) subcut QWEEK 2 mL 1RF E11.65 - Type 2 diabetes mellitus with hyperglycemia rosuvastatin 40 mg PO DAILY 30 tabs 3RF E78.00 - Pure hypercholesterolemia, unspecified Discontinued atorvastatin Discontinued Reason: Doctor's Order 80 mg PO QPM 90 tabs 3RF I25.10 - Atherosclerotic heart disease of [place] coronary artery without angina pectoris
--- OUTSIDE RECORDS SUMMARY | 2025-03-14 10:37 | XMS_ITS | Encounter Summary ---
Author Organization [facility] Address [address] [place] [address] [address] [place] [phone] Phone Care Team Providers Care Coupler Name Role Phone Wallace Sweet MD Primary Care Provider Encounter Details Date Type Department Care Team (Latest Contact Info) Description 06/18/2021 Transcribe Orders Virtual Department [address] [place] [address] Anabelle Ro PA-C [id number] [place] [address] [email or web address] Abnormal findings on diagnostic imaging of liver (Primary Dx); Fatty liver; Gallstones Social History Tobacco Use Types Packs/Day Years [...] documented as of this encounter Results * US ABDOMEN LIMITED RIGHT UPPER QUADRANT (07/10/2021 9:14 AM EST) Anatomical Region Laterality Modality Abdomen Ultrasound 07/10/2021 9:21 AM EST Impressions 07/10/2021 9:22 AM EST 1.Hepatic steatosis. 2.Cholelithiasis. Narrative 07/10/2021 9:22 AM EST COMPARISON: None. LIMITED ABDOMEN ULTRASOUND FINDINGS: Liver: Diffusely echogenic. No focal lesions. Gallbladder: 2.3 cm shadowing nonmobile echogenic focus. No acute findings. Common bile duct: Normal-3 mm. Pancreas: Limited. Imaged pancreas is normal. The pancreatic tail is obscured by bowel gas. Right Kidney: No hydronephrosis. Proximal abdominal aorta/IVC/Main Portal Vein: Limited. Unremarkable. Procedure Note Bang Montgomery MD - 07/10/2021 COMPARISON: None. LIMITED ABDOMEN ULTRASOUND FINDINGS: Liver: Diffusely echogenic. No focal lesions. Gallbladder: 2.3 cm shadowing nonmobile echogenic focus. No acutefindings. Common bile duct: Normal-3 mm. Pancreas: Limited. Imaged pancreas is normal. The pancreatic tail isobscured by bowel gas. Right Kidney: No hydronephrosis. Proximal abdominal aorta/IVC/Main Portal Vein: Limited. Unremarkable. IMPRESSION: 1.Hepatic steatosis. 2.Cholelithiasis. us Anabelle Ro PA-C IMG US ABDOMEN Final Result documented in this encounter Visit Diagnoses Diagnosis Abnormal findings on diagnostic imaging of liver- Primary Fatty liver Other chronic nonalcoholic liver disease Gallstones Calculus of gallbladder without mention of cholecystitis or obstruction Abnormal findings on diagnostic imaging of liver Fatty liver Other chronic nonalcoholic liver disease Gallstones Calculus of gallbladder without mention of cholecystitis or obstruction documented in this encounter Care Teams Coupler Relationship Specialty Start Date End Date Wallace Sweet MD PCP - General Family Medicine 09/02/17 documented as of this encounter Additional Source Comments The information contained in this document represents components of the legal health record. It is not the complete legal health record.[facility]
--- OUTSIDE RECORDS SUMMARY | 2025-03-14 10:37 | XMS_ITS | Clinical Summary ---
Author Organization [facility] Address [address] [place] [address] Phone Care Team Providers Care Change Release Manager Name Role Phone Wallace Sweet MD Primary Care Provider Allergies No known active allergies Medications metFORMIN (GLUCOPHAGE) 1000 MG tabletIndications: type 2 diabetes mellitus,Instructe d to hold in pm 09/06 and AM 09/07 Take 1,000 mg by mouth 2 (two) times a day with meals. Indications: type 2 diabetes mellitus, Instructed to hold in pm 09/06 and AM 09/07 Active lisinopril (PRINIVIL,ZESTRIL) 5 MG tablet Take 5 mg by mouth daily. Active lovastatin (MEVACOR) 40 MG tabletIndications: mixed hyperlipidemia Take 40 mg by mouth nightly. Indications: mixed hyperlipidemia Active therapeutic multivitamin tablet Take 1 tablet by mouth daily. Active omega 8-axp-zcd-fish oil 1,000 mg (120 mg-180 mg) Cap Take 1 capsule by mouth daily. Active acetaminophen (TYLENOL) 325 mg tablet Take 650 mg by mouth as needed for mild pain. Active atorvastatin (LIPITOR) 40 MG tablet Take 40 mg by mouth daily. Active doxycycline hyclate (DORYX) 100 MG tablet Take 100 mg by mouth 2 (two) times a day. Active cefuroxime (CEFTIN) 250 MG tablet Take 250 mg by mouth 2 (two) times a day. Active HUMALOG KWIKPEN INSULIN 100 unit/mL kwikpen INJECT 30 UNITS SUBCUTANEOUSLY THREE TIMES DAILY BEFORE MEAL(S) 09/09/19 Active Social History Tobacco Use Types Packs/Day Years Used Date Smoking Tobacco: Never Smokeless Tobacco: Never Alcohol Use Standard Drinks/Week Comments Not Currently 0 (1 standard drink = 0.6 oz pur e alcohol) occassionally Education Answer Date Recorded Are you interested in more education? Not on dhaval e 10/09/2022 Are you concerned about learning? Not on file 10/09/2022 No 10/09/2022 No 10/09/2022 Digital Access Answer Date Recorded No 11/07/2022 No 11/07/2022 No 11/07/2022 Reliable internet access at home? Not on file 11/07/2022 Device with a working camera? Not on file Intimate Partner Violence Answer Date R ecorded Are you denied basic needs s uch as food, clothing, or medical care? No 09/17/2022 In the past 12 months have y ou been in a relationship with a person who hurts, threatens, or tries to control you? No 09/17/2022 Are you denied basic needs s uch as food, clothing, or medical care? No 09/17/2022 In the past 12 months have y ou been in a relationship with a person who hurts, threatens, or tries to control you? No 09/17/2022 Sex and Gender Information Value Date Recorded Sex Assigned at Not on file Legal Sex Male 9:41 PM EDT Gender Identity Not on file Sexual Orientation Not on file Last Filed Vital Signs Vital Sign Reading Time Taken Comments Blood Pressure 121/73 09/17/2022 11:36 AM EDT Pulse 85 09/17/2022 11:36 AM EDT Temperature 36 C (96.8 F) 09/07/2017 11:39 AM EDT Respiratory Rate 13 09/17/2022 11:36 AM EDT Oxygen Saturation 96% 09/17/2022 11:36 AM EDT Inhaled Oxygen Concentration - - Weight 98.4 kg (217 lb) 09/16/2022 1:12 PM EDT Height 179.1 cm (5' 10.5 ) 09/16/2022 1:12 PM ED T Body Mass Index 30.7 09/16/2022 1:12 PM EDT Plan of Treatment Health Maintenance Due Date Last Done Comments LIPID PANEL 1965 DEPRESSION SCREENING 1977 HEPATITIS C SCREENING 1983 HIV ONE-TIME SCREENING (18-65 YEARS) 1983 SCREENING FOR DIABETES 2000 COLOGUARD 2010 FIT TEST 2010 FOBT 2010 SIGMOIDOSCOPY 2010 VIRTUAL COLONOSCOPY 2010 PNEUMOCOCCAL VACCINES (50+ years) (2 of 2 - PCV) 2015 07/09/2006 CREATININE LEVEL 09/02/2018 09/02/2017 POTASSIUM LEVEL 09/02/2018 09/02/2017 INFLUENZA VACCINE (#1) 2025 9, 02/21/2014, 06/13/2013, Additional history exists COVID-19 VACCINE ( season) 2025 10/02/2020, 09/09/2020 Adult Td,Tdap Booster 12/02/2031 12/01/2021, 007 COLONOSCOPY 09/17/2032 09/17/2022, 09/07/2017 COLORECTAL CANCER SCREENING 09/17/2032 ZOSTER VACCINES Completed 09/22/2021, 04/16/2021 SMOKING STATUS SCREENING (Once After 26 Yrs) Completed 09/17/2022 HEPATITIS A VACCINES Aged Out No long er eligible based on patient's age to complete this topic HIB VACCINES Aged Out No longer eligi ble based on patient's age to complete this topic MENINGOCOCCAL VACCINES (ACWY) Aged Out No longer eligible based on patient's age to complete this topic MENINGOCOCCAL VACCINES (B) Aged Out N o longer eligible based on patient's age to complete this topic Medical Devices Not on file Procedures Procedure Name Priority Date/Time Associated Diagnosis Comments ENDOSCOPY, COLON 09/17/2022 11:0 0 AM EDT COMPREHENSIVE METABOLIC PANEL Routine 09/02/2017 3:05 PM EDT Steatohepatitis from Last 3 Months or Most Recently Relevant to Health Maintenance Results * ENDOSCOPY, COLON (09/17/2022 11:00 AM EDT) Narrative Transcriptions Sami Barton MD - 09/17/2022 11:00 AM EDT [facility] Patient Name: Wilberto Conway Attending MD:: SAMI BARTON MD, Procedure Date: 09/17/2022 11:00 AM Date of : 1965 Age: 57 Admit Type: Outpatient Gender: Male Room: [place] [address] Referring MD: WALLACE SWEET MD Exam Type: Colonoscopy Indications: Colon cancer screening in patient at [facility]: Family history of 1st-degree relative with colon polyps at age 60 years (or older), Lastcolonoscopy: August 2017 Medications: Monitored Anesthesia Care Procedure: Informed consent was obtained from the patientafter discussion of the indications, limitations, alternatives, benefits, and risks of the procedure. Risks specifically discussed include but are not limited to medication reactions, missed lesions, bleeding, perforation, or the need for emergent surgery. Throughout the procedure, the patient's blood pressure, pulse, end-tidal CO2, and oxygensaturations were monitored continuously. The Olympus adult variable colonoscope [id number] #5 was introduced through the anus and advanced to the terminal ileum, with identification of theappendiceal orifice and IC valve. The colonoscopy was performed without difficulty. The patient tolerated the procedure fairly well. The quality of the bowel preparation was good. The terminal ileum, ileocecal valve, appendiceal orifice, and rectum were photographed. Complications: No immediate complications. Estimated blood loss:None. Findings: The perianal and digital rectal examinations were normal. Pertinent negatives include normalsphincter tone. The entire examined colon appeared normal on direct and retroflexion views. Retroflexion in the right colon was performed. Impression: - The entire examined colon is normal on direct and retroflexion views. - No specimens collected. Recommendation: - Repeat colonoscopy in 10 years for screening purposes. SAMI BARTON MD 09/17/2022 11:24:16 AM This report has been signed electronically. Number of Addenda: 0 Note Initiated On: 09/17/2022 11:00 AM Procedure Code(s): --- Professional --- 31970, Colonoscopy, flexible; diagnostic, including collection of specimen(s) by brushing or washing, when performed (separateprocedure) --- Technical --- 58205, Colonoscopy, flexible; diagnostic, including collection of specimen(s) by brushing or washing, when performed (separateprocedure) Diagnosis Code(s): --- Professional --- Z83.71, Family history of colonic polyps --- Technical --- Z83.71, Family history of colonic polyps CPT copyright 2021 [employer]. All rights reserved. The codes documented in this report are preliminary and upon mortgage closer reviewmay be revised to meet current compliance requirements. Procedure Date: 09/17/2022 11:00:[address] [place] [id number] Wallace Sweet MD GI PROCEDURE ORDERABLES Final Re sult * (ABNORMAL) Comprehensive metabolic panel (09/02/2017 3:05 PM EDT) SODIUM 137 133 - 146 mmol/L [facility] POTASSIUM 4.5 3.3 - 5.1 mmol/L [facility] CHLORIDE 98 96 - 108 mmol/L [facility] CO2 26 21 - 35 mmol/L [facility] BUN 14 6 - 19 mg/dL [facility] CREATININE 0.70 0.5 - 1.5 mg/dL [facility] GLUCOSE 255(H) 70 - 99 mg/dL [facility] ALBUMIN 4.8 3.9 - 4.8 g/dL [facility] TOTAL PROTEIN 7.7 6.5 - 8.0 g/dL [facility] CALCIUM 9.5 8.4 - 10.3 mg/dL [facility] ALKALINE PHOSPHATASE 90 39 - 117 U/L [facility] TOTAL BILIRUBIN 0.6 0.0 - 1.2 mg/dL [facility] AST 20 0 - 37 U/L [facility] ALT 28 0 - 40 U/L [facility] GLOBULIN 2.9 1 - 4.8 g/dL [facility] EGFR 109 >59 mL/min/1.7 3m2 [facility] Comment:If patient is black, multiply result by 1.159. The eGFR calculation has changed from the MDRD equation to the CKD-EPI equation as of August 17, 2017. ANION GAP 18 10 - 20 mmol/L [facility] Blood 09/02/2017 3:05 PM EDT 09/02/2017 3:08 PM EDT us Giovanni Kraus MD LAB BLOOD ORDERABLES Final Re sult [facility] [address] [place], [place] [id number] from Last 3 Months or Most Recently Relevant to Health Maintenance Insurance [address] [place] [address]O [facility] [address] [place], [place] [address] [facility] Care Teams Change Release Manager Relationship Specialty Start Date End Date Wallace Sweet MD PCP - General Family Medicine 09/02/17 Additional Source Comments The information contained in this document represents components of the legal health record. It is not the complete legal health record.[facility]
--- OUTSIDE RECORDS SUMMARY | 2025-03-14 10:37 | XMS_ITS | Encounter Summary ---
Author Organization [facility] Address [address] [place] [address] Phone Care Team Providers Care Development Representative Name Role Phone Wallace Sweet MD Primary Care Provider [phone] Encounter Details Date Type Department Care Team (Late st Contact Info) Description 09/07/2017 Procedure Pass [facility] Endoscopy Admitting Dept Virtual Department [address] [place] [address] Social History Tobacco Use Types Packs/Day Years [...] on file documented as of this encounter Visit Diagnoses Not on filedocumented in this encounter Care Teams Development Representative Relationship Specialty Start Date End Date Wallace Sweet MD [email or web address] PCP - General Family Medicine 09/02/17 documented as of this encounter Additional Source Comments The information contained in this document represents components of the legal health record. It is not the complete legal health record.[facility]
--- OUTSIDE RECORDS SUMMARY | 2025-03-14 10:37 | XMS_ITS | Encounter Summary ---
Author Organization [facility] Address [address] [place] [address] Phone Care Team Providers Care Liner Installer Name Role Phone Wallace Sweet MD Primary Care Provider [phone] Encounter Details Date Type Department Care Team (Latest Contact Info) Description 09/02/2017 Transcribe Orders [facility] Laboratory [address] [place] [address] Giovanni Kraus MD [address] [place] [address] [email or web address] Steatohepatitis (Primary Dx) Social History Tobacco Use [...] EDT) SODIUM 137 133 - 146 mmol/L [facility] POTASSIUM 4.5 3.3 - 5.1 mmol/L [facility] CHLORIDE 98 96 - 108 mmol/L [facility] CO2 26 21 - 35 mmol/L [facility] BUN 14 6 - 19 mg/dL [facility] CREATININE 0.70 0.5 - 1.5 mg/dL [facility] GLUCOSE 255(H) 70 - 99 mg/dL [facility] ALBUMIN 4.8 3.9 - 4.8 g/dL [facility] TOTAL PROTEIN 7.7 6.5 - 8.0 g/dL [facility] CALCIUM 9.5 8.4 - 10.3 mg/dL [facility] ALKALINE PHOSPHATASE 90 39 - 117 U/L [facility] TOTAL BILIRUBIN 0.6 0.0 - 1.2 mg/dL [facility] AST 20 0 - 37 U/L [facility] ALT 28 0 - 40 U/L [facility] GLOBULIN 2.9 1 - 4.8 g/dL [facility] EGFR 109 >59 mL/min/1.7 3m2 [facility] Comment:If patient is black, multiply result by 1.159. The eGFR calculation has changed from the MDRD equation to the CKD-EPI equation as of August 17, 2017. ANION GAP 18 10 - 20 mmol/L [facility] Blood 09/02/2017 3:05 PM EDT 09/02/2017 3:08 PM EDT us Giovanni Kraus MD LAB BLOOD ORDERABLES Final Re sult [address] [id number] * CBC (09/02/2017 3:05 PM EDT) WBC 8.19 3.40 - 11.20 K/uL [facility] RBC 5.29 4.50 - 5.50 M/uL [facility] HGB 15.4 13.0 - 17.0 g/dL [facility] HCT 46.1 40.0 - 51.0 % [facility] PLT 311 130 - 400 K/uL [facility] MCV 87.1 79.0 - 98.0 [facility] MCH 29.1 27.0 - 34.8 pg [facility] MCHC 33.4 31.5 - 36.0 g/dL [facility] RDW 12.9 10.8 - 14.6 % [facility] MPV 10.8 9.4 - 12.4 [facility] NRBC 0.00 /100 WBCs [facility] ABSOLUTE NRBC 0.00 K/uL [facility] Blood 09/02/2017 3:05 PM EDT 09/02/2017 3:08 PM EDT us Giovanni Kraus MD LAB BLOOD ORDERABLES Final Re sult Performing Organization Address City/State/[facility] Co de Phone Number [facility] [address] [place] [address] documented in this encounter Visit Diagnoses Diagnosis Steatohepatitis- Primary Other chronic nonalcoholic liver disease documented in this encounter Care Teams Liner Installer Relationship Specialty Start Date End Date Wallace Sweet MD [email or web address] PCP - General Family Medicine 09/02/17 documented as of this encounter Additional Source Comments The information contained in this document represents components of the legal health record. It is not the complete legal health record.[facility]
--- OUTSIDE RECORDS SUMMARY | 2025-03-14 10:37 | XMS_ITS | Encounter Summary ---
Author Organization [facility] Address [address] [place] [address] Phone Care Team Providers Care Hand Packager Name Role Phone Wallace Sweet MD Primary Care Provider [phone] Encounter Details Date Type Department Care Team (Latest Contact Info) Description 05/28/2022 Transcribe Orders Virtual Department [address] [place] [address] Anabelle Ro PA-C [address] [place] [address] [email or web address] Abnormal liver diagnostic imaging (Primary Dx); Fatty liver; Gallstones Social History [...] * US ABDOMEN LIMITED RIGHT UPPER QUADRANT (06/10/2022 8:28 AM EST) Anatomical Region Laterality Modality Abdomen Ultrasound 06/10/2022 11:1 4 AM EST Impressions 06/10/2022 11:19 AM EST 1. Hepatic steatosis, slightly improved. 2. Cholelithiasis. Narrative 06/10/2022 11:19 AM EST US ABDOMEN LIMITED RIGHT UPPER QUADRANT TECHNIQUE: US Abdominal limited right upper quadrant. COMPARISON: 07/10/2021 FINDINGS: Liver: Echogenic, consistent with hepatic steatosis, slightly improved from the prior study. No focal lesions. Main Portal Vein: Patent with normal direction of flow. Gallbladder: There is a 1.8 cm gallstone as before, without significant gallbladder wall thickening. No pericholecystic fluid. Estevez's Sign: Positive. Biliary: Normal. No intrahepatic or extrahepatic biliary ductal dilatation. The common bile duct measures 5 mm. No hydronephrosis in the right kidney The visualized portions of the pancreas are unremarkable. Procedure Note Catalina Sarmiento MD - 06/10/2022 US ABDOMEN LIMITED RIGHT UPPER QUADRANT TECHNIQUE: US Abdominal limited right upper quadrant. COMPARISON: 07/10/2021 FINDINGS: Liver: Echogenic, consistent with hepatic steatosis, slightly improvedfrom the prior study. No focal lesions. Main Portal Vein: Patent with normal direction of flow. Gallbladder: There is a 1.8 cm gallstone as before, without significantgallbladder wall thickening. No pericholecystic fluid. Estevez's Sign: Positive. Biliary: Normal. No intrahepatic or extrahepatic biliary ductaldilatation. The common bile duct measures 5 mm. No hydronephrosis in the right kidney The visualized portions of the pancreas are unremarkable. IMPRESSION: 1. Hepatic steatosis, slightly improved. 2. Cholelithiasis. us Anabelle Ro PA-C IM US ABDOMEN Final Result documented in this encounter Visit Diagnoses Diagnosis Abnormal liver diagnostic imaging- Primary Fatty liver Other chronic nonalcoholic liver disease Gallstones Calculus of gallbladder without mention of cholecystitis or obstruction Abnormal liver diagnostic imaging Fatty liver Other chronic nonalcoholic liver disease Gallstones Calculus of gallbladder without mention of cholecystitis or obstruction documented in this encounter Care Teams Hand Packager Relationship Specialty Start Date End Date Wallace wSeet MD PCP - General Family Medicine 09/02/17 documented as of this encounter Additional Source Comments The information contained in this document represents components of the legal health record. It is not the complete legal health record.[facility]
--- OUTSIDE RECORDS SUMMARY | 2025-03-14 10:37 | XMS_ITS | Encounter Summary ---
Author Organization [facility] Address [address] [place] [address] Phone Care Team Providers Care Canal Equipment Mechanic Name Role Phone Wallace Sweet MD Primary Care Provider [phone] Encounter Details Date Type Department Care Team (Late st Contact Info) Description 09/17/2022 Procedure Pass [facility] Endoscopy Admitting Dept Virtual Department [address] [place] [address] Social History Tobacco Use Types Packs/Day Years Used Date Smoking Tobacco: Never Smokeless Tobacco: Never Alcohol Use Standard Drinks/Week Comments Not Currently 0 (1 standard drink = 0.6 oz pur e alcohol) occassionally Intimate Partner Violence Answer Date R ecorded Are you denied basic needs s [facility] as food, clothing, or medical care? No 09/17/2022 In the past 12 months have y ou been in a relationship with a person who hurts, threatens, or tries to control you? No 09/17/2022 Are you denied basic needs s [facility] as food, clothing, or medical care? No [...] on filedocumented in this encounter Care Teams Canal Equipment Mechanic Relationship Specialty Start Date End Date Wallace Sweet MD [email or web address] PCP - General Family Medicine 09/02/17 documented as of this encounter Additional Source Comments The information contained in this document represents components of the legal health record. It is not the complete legal health record.[facility]
== END 2025-03-14 10:29 | disposition home or self-care (01) ==
LOC: HO.HMCH 09:43
PROVIDERS: PCP Internal Medicine; Visit Provider Internal Medicine
DX: I25.10 Atherosclerotic heart disease of native coronary artery without angina pectoris (principal); I10 Essential (primary) hypertension; E78.00 Pure hypercholesterolemia, unspecified; E11.65 Type 2 diabetes mellitus with hyperglycemia; H61.23 Impacted cerumen, bilateral

== ENCOUNTER 2025-05-12 13:44 | Outpatient (AMB) | payer OTHER, SELFPAY ==
--- OUTSIDE RECORDS SUMMARY | 2025-05-12 13:47 | XMS_ITS | Encounter Summary ---
Author Organization [facility] Address [address] [place] [address] [address] [place] [address] Phone Care Team Providers Care Gas Cutting Machine Operator Name Role Phone Wallace Sweet MD Primary Care Provider [phone] Encounter Details Date Type Department Care Team (Latest Contact Info) Description 06/18/2021 Transcribe Orders Virtual Department [address] [place] [address] Anabelle Ro PA-C [address] [place] [address] [email or web address] Abnormal findings on diagnostic imaging of liver [...] obstruction documented in this encounter Care Teams Gas Cutting Machine Operator Relationship Specialty Start Date End Date Wallace Sweet MD [email or web address] PCP - General Family Medicine 09/02/17 documented as of this encounter Additional Source Comments The information contained in this document represents components of the legal health record. It is not the complete legal health record.[facility]
--- OUTSIDE RECORDS SUMMARY | 2025-05-12 13:47 | XMS_ITS | Encounter Summary ---
Author Organization [facility] Address [address] [place] [address] Phone Care Team Providers Care Flexible Babysitter Name Role Phone Wallace Sweet MD Primary Care Provider [phone] Encounter Details Date Type Department Care Team (Latest Contact Info) Description 05/28/2022 Transcribe Orders Virtual Department [address] [place] [address] Anabelle Ro PA-C [address] [place] [address] [email or web address] Abnormal liver diagnostic imaging (Primary Dx); Fatty [...] obstruction documented in this encounter Care Teams Flexible Babysitter Relationship Specialty Start Date End Date Wallace Sweet MD PCP - General Family Medicine 09/02/17 documented as of this encounter Additional Source Comments The information contained in this document represents components of the legal health record. It is not the complete legal health record.[facility]
--- OUTSIDE RECORDS SUMMARY | 2025-05-12 13:47 | XMS_ITS | Clinical Summary ---
Author Organization [facility] Address [address] [place] [address] Phone Care Team Providers Care Pump Press Operator Name Role Phone Wallace Sweet MD Primary Care Provider [phone] Allergies No known active allergies Medications metFORMIN [...] 1 tablet by mouth daily. Active omega 7-esf-unl-fish oil 1,000 mg (120 mg-180 mg) Cap [...] 06/13/2013, Additional history exists COVID-19 VACCINE ( - season) 2025 10/02/2020, 09/09/2020 Adult Td,Tdap Booster 12/02/2031 12/01/2021, 007 COLONOSCOPY 09/17/2032 09/17/2022, 09/07/2017 COLORECTAL CANCER SCREENING 09/17/2032 RSV VACCINE (1 - 1-dose 75+ series) 2040 ZOSTER VACCINES Completed 09/22/2021, 04/16/2021 SMOKING STATUS [...] 11:0 0 AM EDT COMPREHENSIVE METABOLIC PANEL (CMP) Routine 09/02/2017 3:05 PM EDT Steatohepatitis from Last 3 Months or Most Recently Relevant to Health Maintenance Results * ENDOSCOPY, COLON (09/17/2022 11:00 AM EDT) Narrative Transcriptions Sami Barton MD - 09/17/2022 11:00 AM EDT [facility] Patient Name: Wilberto Conway Attending MD:: SAMI BARTON MD, Procedure Date: 09/17/2022 11:00 AM Date of : 1965 Age: 57 Admit Type: Outpatient Gender: Male Room: [facility] Referring MD: WALLACE SWEET MD Exam Type: Colonoscopy Indications: Colon cancer screening in patient at [facility]: Family history of 1st-degree relative with colon [...] monitored continuously. The Olympus adult variable colonoscope [id number] #5 was introduced through the anus and [...] 11:00 AM Procedure Code(s): --- Professional --- 89818, Colonoscopy, flexible; diagnostic, including collection of specimen(s) by brushing or washing, when performed (separateprocedure) --- Technical --- 73162, Colonoscopy, flexible; diagnostic, including collection of specimen(s) by brushing or washing, when performed (separateprocedure) Diagnosis Code(s): --- Professional --- Z83.71, Family history of colonic polyps --- Technical --- Z83.71, Family history of colonic polyps CPT copyright 2021 [employer]. All rights reserved. The codes documented in this report are preliminary and upon tow boat captain reviewmay be revised to meet current compliance requirements. Procedure Date: 09/17/2022 11:00:[address] [place] [address] Wallace Sweet MD GI PROCEDURE ORDERABLES Final Re sult * (ABNORMAL) Comprehensive metabolic panel (09/02/2017 3:05 PM EDT) SODIUM 137 133 - 146 mmol/L [facility] POTASSIUM 4.5 3.3 - 5.1 mmol/L [facility] CHLORIDE 98 96 - 108 mmol/L [facility] CO2 26 21 - 35 mmol/L [facility] BUN 14 6 - 19 mg/dL [facility] CREATININE 0.70 0.5 - 1.5 mg/dL [facility] GLUCOSE 255(H) 70 - 99 mg/dL [facility] ALBUMIN 4.8 3.9 - 4.8 g/dL [facility] TOTAL PROTEIN 7.7 6.5 - 8.0 g/dL [facility] CALCIUM 9.5 8.4 - 10.3 mg/dL [facility] ALKALINE PHOSPHATASE 90 39 - 117 U/L [facility] TOTAL BILIRUBIN 0.6 0.0 - 1.2 mg/dL [facility] AST 20 0 - 37 U/L [facility] ALT 28 0 - 40 U/L [facility] GLOBULIN 2.9 1 - 4.8 g/dL [facility] EGFR 109 >59 mL/min/1.7 3m2 [facility] Comment:If patient is black, multiply result by 1.159. The eGFR calculation has changed from the MDRD equation to the CKD-EPI equation as of August 17, 2017. ANION GAP 18 10 - 20 mmol/L [facility] Blood 09/02/2017 3:05 PM EDT 09/02/2017 3:08 PM EDT us Giovanni Kraus MD LAB BLOOD BKR ORDERABLES Nicole grace Result [facility] [address] [place], [place] [id number] from Last 3 Months or Most Recently Relevant to Health Maintenance Insurance [facility] O Care Teams Pump Press Operator Relationship Specialty Start Date End Date Wallace Sweet MD PCP - General Family Medicine 09/02/17 Additional Source Comments The information contained in this document represents components of the legal health record. It is not the complete legal health record.[facility]
--- OUTSIDE RECORDS SUMMARY | 2025-05-12 13:47 | XMS_ITS | Encounter Summary ---
Author Organization [facility] Address [address] [place] [address] Phone Care Team Providers Care Hobbies And Crafts Sales Representative Name Role Phone Wallace Sweet MD Primary Care Provider [phone] Encounter Details Date Type Department Care Team (Late st Contact Info) Description 09/07/2017 Procedure Pass [facility] Endoscopy Admitting Dept Virtual Department [address] [place] [address] Social History Tobacco Use Types Packs/Day Years [...] on filedocumented in this encounter Care Teams Hobbies And Crafts Sales Representative Relationship Specialty Start Date End Date Wallace Sweet MD [email or web address] PCP - General Family Medicine 09/02/17 documented as of this encounter Additional Source Comments The information contained in this document represents components of the legal health record. It is not the complete legal health record.[facility]
--- OUTSIDE RECORDS SUMMARY | 2025-05-12 13:47 | XMS_ITS | Encounter Summary ---
Author Organization [facility] Address [address] [place] [address] Phone Care Team Providers Care Winder Hand Name Role Phone Wallace Sweet MD Primary Care Provider [phone] Encounter Details Date Type Department Care Team (Latest Contact Info) Description 09/02/2017 Transcribe Orders [facility] [address] [address] Giovanni Kraus MD [address] [place] [phone] [email or web address] Steatohepatitis (Primary Dx) Social History Tobacco Use [...] EDT) SODIUM 137 133 - 146 mmol/L [facility] POTASSIUM 4.5 3.3 - 5.1 mmol/L [facility] CHLORIDE 98 96 - 108 mmol/L [facility] CO2 26 21 - 35 mmol/L [facility] BUN 14 6 - 19 mg/dL [facility] CREATININE 0.70 0.5 - 1.5 mg/dL [facility] GLUCOSE 255(H) 70 - 99 mg/dL [facility] ALBUMIN 4.8 3.9 - 4.8 g/dL [facility] TOTAL PROTEIN 7.7 6.5 - 8.0 g/dL [facility] CALCIUM 9.5 8.4 - 10.3 mg/dL [facility] ALKALINE PHOSPHATASE 90 39 - 117 U/L [facility] TOTAL BILIRUBIN 0.6 0.0 - 1.2 mg/dL [facility] AST 20 0 - 37 U/L [facility] ALT 28 0 - 40 U/L [facility] GLOBULIN 2.9 1 - 4.8 g/dL [facility] EGFR 109 >59 mL/min/1.7 3m2 [facility] Comment:If patient is black, multiply result by 1.159. The eGFR calculation has changed from the MDRD equation to the CKD-EPI equation as of August 17, 2017. ANION GAP 18 10 - 20 mmol/L [facility] Blood 09/02/2017 3:05 PM EDT 09/02/2017 3:08 PM EDT us Giovanni Kraus MD LAB BLOOD BKR ORDERABLES Nicole l Result [facility] [address] [place] [address] * CBC (09/02/2017 3:05 PM EDT) WBC 8.19 3.40 - 11.20 K/uL [facility] RBC 5.29 4.50 - 5.50 M/uL [facility] HGB 15.4 13.0 - 17.0 g/dL [facility] HCT 46.1 40.0 - 51.0 % [facility] PLT 311 130 - 400 K/uL [facility] MCV 87.1 79.0 - 98.0 fL [facility] MCH 29.1 27.0 - 34.8 pg [facility] MCHC 33.4 31.5 - 36.0 g/dL [facility] RDW 12.9 10.8 - 14.6 % [facility] MPV 10.8 9.4 - 12.4 fl [facility] NRBC 0.00 /100 WBCs [facility] ABSOLUTE NRBC 0.00 K/uL [facility] Blood 09/02/2017 3:05 PM EDT 09/02/2017 3:08 PM EDT us Giovanni Kraus MD LAB BLOOD BKR ORDERABLES Nicole l Result [address] [address] documented in this encounter Visit Diagnoses Diagnosis Steatohepatitis- Primary Other chronic nonalcoholic liver disease documented in this encounter Care Teams Winder Hand Relationship Specialty Start Date End Date Wallace Sweet MD [email or web address] PCP - General Family Medicine 09/02/17 documented as of this encounter Additional Source Comments The information contained in this document represents components of the legal health record. It is not the complete legal health record.[facility]
--- OUTSIDE RECORDS SUMMARY | 2025-05-12 13:47 | XMS_ITS | Encounter Summary ---
Author Organization [facility] Address [address] [place] [address] Phone Care Team Providers Care Language Teacher Name Role Phone Wallace Sweet MD Primary Care Provider [phone] Encounter Details Date Type Department Care Team (Late st Contact Info) Description 09/17/2022 Procedure Pass [facility] Endoscopy Admitting Dept Virtual Department [address] [place] [address] Social History Tobacco Use Types Packs/Day Years Used Date Smoking Tobacco: Never Smokeless Tobacco: Never Alcohol Use Standard Drinks/Week Comments Not Currently 0 (1 standard drink = 0.6 oz pur e alcohol) occassionally Intimate Partner Violence Answer Date R ecorded Are you denied basic needs s [facility] as food, clothing, or medical care? No 09/17/2022 In the past 12 months have y ou been in a relationship with a person who hurts, threatens, or tries to control you? No 09/17/2022 Are you denied basic needs s [facility] as food, clothing, or medical care? [...] on filedocumented in this encounter Care Teams Language Teacher Relationship Specialty Start Date End Date Wallace Sweet MD [email or web address] PCP - General Family Medicine 09/02/17 documented as of this encounter Additional Source Comments The information contained in this document represents components of the legal health record. It is not the complete legal health record.[facility]
[2025-05-12 13:50] VITALS: BP 134/70; PULSE 95; TEMP 36.5; O2SAT 98; BMI 28.8
--- NOTE | 2025-05-12 13:50 | MHC.OFFWIV ---
Intake Vital Signs 05/12/25 13:50 Height 5 ft 10 in Weight 91.172 kg BMI 28.8 BP 134/70 Blood Pressure Location Rt brachial Position Sitting Pulse 95 Pulse Source Pulse Oximeter Temp 97.7 F Temp Source Oral Pulse Oximetry (%) 98 Oxygen Delivery Method Room Air Intake Visit Reasons: EP Pain in upper abdomen Intake Note: Pt is here today c/o upper abdomen pain since yesterday after eating Patient Tobacco Use Status: Never used Tobacco Allergies semaglutide (From Ozempic) Adverse Reaction (Intermediate, Verified 05/12/25 13:50) burping HPI HPI Comments History of Present Illness Details Chief Complaint: ?I started getting a lot of pain in my upper abdomen last night.? History of Present Illness: 60-year-old male with past medical history of coronary artery disease s/p triple CABG (September, [facility]), hypertension, retinopathy, type 2 diabetes mellitus, erectile dysfunction, and hypercholesterolemia presents with upper abdominal pain that began last night. Pain is located ?right up in here? (points to upper abdomen/low chest) and feels as though it radiates downward. Onset appeared to be after eating; patient suspects fatty food (gravy) as a trigger and recalls prior gallstone diagnosis ~5 years ago. He describes significant pain/discomfort requiring nighttime medication (patient reports taking something at night to relieve pain, but specific medication not stated) and feels the pain ?building up again.? Associated symptoms: single episode of heavy vomiting last night, mild shortness of breath and inability to take a deep breath (new for him). Denies chest pain, diarrhea, shoulder pain, or jaw pain. No known changes in urination. Not on anticoagulation therapy post-CABG. 60-year-old male with significant cardiac history presents with upper abdominal/atypical chest discomfort, vomiting, and new shortness of breath. Differential considerations include cardiac ischemia, pulmonary embolism, gallbladder/biliary pathology, and other GI causes. Problem #1: Upper abdominal/atypical chest pain with vomiting Assessment: Onset after fatty meal; prior history of gallstones, but pain location and associated SOB raise concern for non-GI etiologies. Plan: Obtain EKG (ordered) to evaluate for cardiac ischemia.- NSR w/ Q waves. No LAMBERT or inversions concerning for acute ischemia Reassess patient once EKG results available and expand work-up as clinically indicated. Problem #2: s/p triple CABG without anticoagulation ? rule out pulmonary embolism Assessment: New inability to take deep breath raises concern for PE in postoperative patient not on anticoagulation. Plan: ? PE Patient tells me overall he just feels unwell. PE should be ruled out given hx. PFSH Medical History Obesity (BMI 30-39.9) Blood pressure elevated without history of HTN Finger stiffness Trigger finger, left middle finger Trigger finger, left index finger Chest discomfort Trigger finger, right index finger Trigger finger, right middle finger Abnormal stress ECG with treadmill Diarrhea Asthma Surgical History Hx of cardiac cath Hx of tonsillectomy Aftercare following bilateral shoulder joint replacement surgery History of appendectomy Family History Mother Emphysema lung Father Heart failure Brother Substance use disorder Mental health disorder Brother No problems noted. Brother No problems noted. Sister No problems noted. Daughter No problems noted. Son No problems noted. Son No problems noted. Social History Housing: House Alcohol intake: current Alcohol intake frequency: a few times a week Alcohol type: beer Patient Tobacco Use Status: Never used Tobacco Tobacco use type: Cigarette e-Cigarette/Vaping Use: Never Used Second Hand Smoke Exposure: No service: No Current occupational status: employed Cognitive needs: No Hearing needs: No Vision needs: Yes (Glasses) Review of Systems Const All systems reviewed & are unremarkable except as noted in HPI and below Physical Exam Exam Exam: Appearance: Alert.? Oriented X3.? Appears fatigued Head: Normocephalic, atraumatic, no step-offs or deformities Eyes: Pupils equal, round and reactive to light.? Neck: Normal inspection.? Neck supple.? CVS: Normal heart rate and rhythm.? Pulses normal.? Respiratory: No respiratory distress.? Breath sounds normal.? Abdomen: Soft and nontender.? Skin: Skin warm and dry.? Normal skin color.? Normal skin turgor.? Extremities: No lower extremity edema.? No calf ttp. 5/5 strength to bilateral upper and lower extremities Back: No midline tenderness, no C-spine tenderness, full range of motion, no CVA tenderness bilaterally Neuro: Oriented X 3.? No motor deficit.? No sensory deficit. CN 2-12 intact Vital Signs: Last Vital Signs Temp 97.7 F 05/12/25 13:50 Pulse 95 05/12/25 13:50 BP 134/70 05/12/25 13:50 Pulse Ox 98 05/12/25 13:50 Oxygen Delivery Method Room Air 05/12/25 13:50 BMI result Body Mass Index 28.8 vss Assessment & Plan Assessment & Plan (1) Pleuritic chest pain: Code(s): R07.81 - Pleurodynia Plan Patient to go to [facility] ED Via private car w. Coding Level of Care Code Est Pt Level 3 (00453) Diagnoses Pleuritic chest pain R07.81
== END 2025-05-12 14:27 | disposition home or self-care (01) ==
PROVIDERS: PCP Internal Medicine; Visit Provider Physician Assistant
DX: R07.81 Pleurodynia (principal)

== ENCOUNTER 2025-05-12 14:46 | Inpatient (IN) | payer OTHER, SELFPAY ==
--- NOTE | ~2025-05-12 | CT_ITS ---
CLINICAL HISTORY: RUQ pain CT abdomen and pelvis with contrast Comparison: None provided Findings: The lung bases are clear. Cholelithiasis. The left and right kidney demonstrate symmetric corticomedullary enhancement. The liver spleen and pancreas and adrenals are within normal limits. There is diffuse fecal material seen throughout the colon. The appendix not grossly identified. Calcified coronary atherosclerotic disease. Mild calcified atherosclerotic disease of the abdominal aorta. Mesenteric root geographic area of heterogeneous low-attenuation, 11.6 x 4.8 x 12 cm with prominent mesenteric root lymph nodes. The prostate is within normal limits. The bones are intact. Prior sternotomy. IMPRESSION: 1. Mesenteric root heterogeneous low-attenuation mass (11.6 x 4.8 x 12 cm) with prominent mesenteric root lymph nodes; supraumbilical mesenteric panniculitis. 2. Cholelithiasis. 3. Constipation. 4. Calcified coronary atherosclerotic disease. 5. Mild calcified atherosclerotic disease of the abdominal aorta. 6. Prior sternotomy. This document has been electronically signed by: Salvador Crump MD on 05/12/2025 19:47:43
--- NOTE | ~2025-05-12 | MR_ITS ---
CLINICAL HISTORY: impacted gallstone --- Additional Notes or Special Instructions: permitted by Dr Desai MR abdomen without contrast, MRCP Comparison: CT/SR - CT ABDOMEN PELVIS W IV CON - 05/12/25 18:43 EST US/SR - US ABDOMEN LIMITED - 05/12/25 16:13 EST Findings: No signal abnormality in the lung bases. 2.5 cm stone in the fundus of the gallbladder. No gallbladder wall thickening or pericholecystic fluid. The common bile duct is mildly dilated, measuring up to 7 mm. No filling defect to indicate choledocholithiasis. No abrupt cutoff. There is distal narrowing of the common bile duct (series 12 images 56 through 59) Mild dilation of the main pancreatic duct, measuring 4 mm. 8 mm cyst in the right kidney. The other solid organs are unremarkable. No bowel wall thickening or dilation. No aneurysm. Mesenteric stranding with lymph nodes measuring up to 9 mm in short axis indicating mesenteric panniculitis, a nonspecific typically self-limiting inflammatory condition. No ascites. No bone marrow edema. Impression: Cholelithiasis without acute cholecystitis. No impacted stone. Mild dilation of the common bile duct measuring up to 7 mm without choledocholithiasis or abrupt cutoff. There is distal narrowing of the common bile duct which could be normal or may indicate stricture. There is also mild dilation of the main pancreatic duct, measuring up to 4 mm. Consider follow up or further evaluation with nonemergent ERCP. This document has been electronically signed by: Maggy Delvalle MD on 05/13/2025 13:22:16
--- NOTE | ~2025-05-12 | US_ITS ---
CLINICAL HISTORY: RUQ pain --- Additional Notes or Special Instructions: look at GB, ducts, liver, pancreas US limited to right upper quadrant Comparison: None Findings: Liver is normal size and reveals homogeneous echotexture. No focal hepatic lesions. No intrahepatic ductal dilatation. Right lobe length measures 14.1 cm. Portal vein reveals hepatopetal flow. Common bile duct measures 4 mm. Gallbladder contains shadowing stones. Evaluation for wall thickening is limited by nondistention. While may measure up to 4 mm thickness. No pericholecystic fluid.. [employer] notes indicate tenderness scanning over the gallbladder.. Impression: 1. Cholelithiasis. Evaluation for wall thickening is limited by incomplete distention of the gallbladder. [employer] Foreign Language Tutor reports some tenderness while scanning in this region. Findings are indeterminate in terms of meeting sonographic criteria for cholecystitis. This document has been electronically signed by: J Luis Johnston MD on 05/12/2025 17:11:03
--- NOTE | 2025-05-12 15:09 | ECG_ITS ---
Test Reason : ABD PAIN Blood Pressure : */* mmHG Vent. Rate : 85 BPM Atrial Rate : 85 BPM P-R Int : 158 ms QRS Dur : 82 ms QT Int : 354 ms P-R-T Axes : 73 17 41 degrees QTcB Int : 421 ms Normal sinus rhythm Normal ECG When compared with ECG of 02-Dec-2024 22:05, Criteria for Inferior infarct are no longer Present Referred By: Claire Freed Electronically Signed By: CATHY GLASGOW
[2025-05-12 15:28] VITALS: BP 137/80; PULSE 84; RESP 20; TEMP 36.2; O2SAT 98; BMI 28.5
--- NOTE | 2025-05-12 15:30 | ED.ABDPAIN ---
HPI - Abdominal Pain General Chief Complaint: Abdominal Pain Stated Complaint: Stomach Pain Time Seen by Provider: 05/12/25 17:37 Source: patient and family () Mode of arrival: ambulatory Limitations: no limitations History of Present Illness ED Provider: CLAIRE FREED PA-C HPI narrative: 60 year old male with pmhx significant for asthma, CAD, HTN, T2DM presents to the ED today from for evaluation of RUQ abdominal pain that began after eating turkey dinner last night. Pain radiates to epigastric region and has been constant since. Worse with eating. He last consumed a small meal around 1300 today. Endorses nausea and one episode of vomiting last night. Denies constipation, diarrhea. Admits to hx of gallstones - never had his gallbladder removed. Surgical hx includes appendectomy and triple bypass. Related Data Home Medications ?Medication ?Instructions ?Recorded ?Confirmed multivitamin 1 tab PO DAILY 08/25/22 05/13/25 aspirin 81 mg tablet,delayed 81 mg PO DAILY 09/05/24 05/13/25 release (Adult Aspirin Regimen) insulin glargine 100 unit/mL (3 22 unit subcut BEDTIME 05/12/25 05/13/25 mL) subcutaneous pen (Lantus Solostar U-100 Insulin) rosuvastatin 40 mg tablet 40 mg PO BEDTIME 05/13/25 05/13/25 tirzepatide 2.5 mg/0.5 mL 2.5 mg subcut FR@0900 05/13/25 05/13/25 subcutaneous pen injector (Mounjaro) Previous Rx's ?Medication ?Instructions ?Recorded Diabetic shoes #1 ea 10/29/23 lisinopril 5 mg tablet 5 mg PO DAILY #90 tabs 03/15/25 metformin 1,000 mg tablet 1,000 mg PO BID #180 tabs 03/15/25 flash glucose sensor (FreeStyle #7 ea 04/06/25 Pushpa 2 Sensor kit) empagliflozin 25 mg tablet 25 mg PO DAILY #30 tabs 05/14/25 (Jardiance) Allergies Allergy/AdvReac Type Severity Reaction Status Date / Time semaglutide (From Ozempic) AdvReac Intermediate burping Verified 05/12/25 15:30 Review of Systems Review of Systems Yes all other systems are reviewed and are negative PMFSH Past Medical History Attestation statement: The following information was validated with the patient. Source: old records reviewed and nursing notes reviewed Medical History Multiple rib fractures Erectile dysfunction Cholelithiases Retinopathy, background, nonproliferative, mild Primary hypertension Ulcer of right great toe due to diabetes mellitus Type 2 diabetes mellitus with hyperglycemia HLD (hyperlipidemia) CAD (coronary artery disease) Gallstones Obesity (BMI 30-39.9) Blood pressure elevated without history of HTN Finger stiffness Trigger finger, left middle finger Trigger finger, left index finger Chest discomfort Trigger finger, right index finger Trigger finger, right middle finger Abnormal stress ECG with treadmill Diarrhea Asthma Surgical History S/P CABG x 3 Hx of cardiac cath Hx of tonsillectomy Aftercare following bilateral shoulder joint replacement surgery History of appendectomy Family History Family History Mother Emphysema lung Father Heart failure Brother Substance use disorder Mental health disorder Brother No problems noted. Brother No problems noted. Sister No problems noted. Daughter No problems noted. Son No problems noted. Son No problems noted. Social History Social History Household Members: Spouse Housing: House Alcohol intake: current Alcohol intake frequency: a few times a week Alcohol type: beer Patient Tobacco Use Status: Never used Tobacco Tobacco use type: Cigarette e-Cigarette/Vaping Use: Never Used Second Hand Smoke Exposure: No service: No Current occupational status: employed Cognitive needs: No Hearing needs: No Vision needs: Yes (Glasses) Physical Exam ED Vital Signs: Vital Signs - 24 hr 05/12/25 15:28 05/12/25 18:08 Temperature 97.1 F 97.6 F Pulse Rate 84 75 Respiratory Rate 20 16 Blood Pressure 137/80 121/68 Pulse Oximetry 98 96 Oxygen Delivery Method Room Air Room Air BMI result Body Mass Index 28.5 Vital signs stable, afebrile General: Well appearing, in no acute distress. Skin: Warm, dry, intact. No rashes or lesions. Head: Normocephalic, atraumatic. EENT: Hearing is intact b/l. Conjunctiva clear. PERRLA. EOM intact. Moist mucous membranes.? Neck: Supple without LAD Cardiac: Chest wall symmetric. RRR Lungs: Normal respiratory effort without accessory muscle use. CTA bilaterally. Abdomen: Soft, nondistended. Positive Estevez's sign. no rebound tenderness. normoactive bs x4. Back: No midline spinous or paraspinal tenderness. No step off deformity. Ext: Upper and lower extremities atraumatic, without tenderness, deformity, swelling or erythema. Full ROM throughout Neuro: AOx3. Normal speech. Ambulating with steady gait. Psych: Appropriate mood and affect. Responds appropriately to questions. Course Course Course Narrative: CBC without leukocytosis or left shift. No anemia. H&H stable. Chemistry without acute electrolyte abnormality requiring intervention. Random glucose 216, no anion gap. Transaminitis with mild elevation of T bili to 1.2. Patient has no known liver disease. Denies any EtOH consumption. Right upper quadrant ultrasound performed by geological technician showing cholelithiasis however limited evaluation of wall thickening due to distention of gallbladder, indeterminate findings in terms of meeting sonographic criteria for cholecystitis. Bedside ultrasound performed by my attending Dr. Hand - noted impacted gallstone measuring 2 mm with 6 mm thickened gallbladder wall. CT a/p showing mesenteric root mass and mesenteric panniculitis, likely secondary to prior abdominal surgeries. Discussed case with general surgeon, Dr. Pardo, agreeable with admission to medicine. No surgical intervention warranted at this time as he is not convinced that this is acute cholecystitis. Discussed case with GI, Dr. Desai - agreeable with admission to medicine. Patient will likely require MRCP with formal GI and General surgery consultations tomorrow. Discussed case with hospitalist, Dr. Zaman who has accepted patient admission to medicine. Patient and are agreeable. Patient is stable at this time, only reporting mild abdominal discomfort. Pain well controlled. Medical Decision Making Medical Decision Making MDM Narrative: 60 year old male with pmhx significant for asthma, CAD, HTN, T2DM presents to the ED today from for evaluation of RUQ abdominal pain that began after eating turkey dinner last night. vital signs stable. afebrile. he is well appearing, in NAD. on exam, his abdomen is soft, nondistended. there is positive Estevez's sign. no rebound tenderness. normoactive bs x4. Differential diagnosis includes biliary colic, renal colic, nephrolithiasis, gastroenteritis, gastritis, PUD. Abdominal exam without peritoneal signs. No evidence of acute abdomen at this time. Well appearing. Moderate suspicion for acute hepatobiliary disease (including acute cholecystitis). Less likely to represent acute pancreatitis, perforated ulcer/ GI bleed, acute infectious processes (pneumonia, hepatitis, pyelonephritis), atypical appendicitis, vascular catastrophe, bowel obstruction or viscus perforation. Presentation not consistent with other acute, emergent causes of abdominal pain at this time. Plan: labs, UA, pain control, RUQ US, serial reassessment Differential Diagnosis Differential Diagnoses: The differential diagnosis associated with the presentation includes as above. Admission/Observation Consideration of admission/observation: Escalation of care including admission/observation considered I considered admission for acute cholelithiasis - general surgery is recommending d/c home with outpatient follow up. Consult Healthcare Provider Management of the patient was discussed with: Clinical Research Management Associate (general surgeon - dr. pardo) Lab Data MDM Lab Attestation statement: I reviewed the patient's lab results. as above. 05/13/25 05:26 05/14/25 08:38 Labs: Lab Results 05/12/25 Range/Units 15:44 WBC 7.1 (4.8-10.8) X10*3/uL RBC 5.02 (4.60-5.80) X10*6/uL Hgb 14.7 (14.0-18.0) g/dl Hct 43.8 (42.0-52.0) % MCV 87.3 (80.0-98.0) fL MCH 29.3 (27.0-33.0) pg MCHC 33.6 (31.0-36.0) g/dl RDW 13.7 (11.0-16.0) % Plt Count 296 (160-400) X10*3/uL MPV 9.9 (9.4-12.4) fL Immature Gran % (Auto) 0.7 H (0.0-0.4) % Neut % (Auto) 67.1 (45-73) % Lymph % (Auto) 20.7 (20-40) % Mineral % (Auto) 9.5 (2-11) % Eos % (Auto) 1.4 (0-4) % Baso % (Auto) 0.6 (0-2) % Lymph # (Auto) 1.5 (1.2-4.9) X10*3/uL Mineral # (Auto) 0.7 (0.1-1.2) X10*3/uL Eos # (Auto) 0.1 (0.0-0.4) X10*3/uL Baso # (Auto) 0.0 (0.0-0.2) X10*3/uL Abs Immat Gran (auto) 0.05 H (0.00-0.03) X10*3/uL Absolute Neuts (auto) 4.8 (2.0-8.3) x10*3/uL Absolute Nucleated RBC 0.000 (0.0-0.012) X10*3/uL Nucleated RBC % (auto) 0.0 (0.0-0.2) /100WBC Sodium 139 (135-145) mmol/L Potassium 4.2 (3.3-5.1) mmol/L Chloride 106 (96-108) mmol/L Carbon Dioxide 23 (22-29) mmol/L Anion Gap 14 (12-20) BUN 13 (9-16) mg/dL Creatinine 0.78 (0.5-1.4) mg/dL Estim Creat Clear Calc 113.6 Estimated GFR > 60 Random Glucose 216 H (60-115) mg/dL Calcium 9.3 (8.4-10.2) mg/dL Total Bilirubin 1.2 H (0.0-1.0) mg/dL Direct Bilirubin 0.5 (0.0-0.5) mg/dL AST 286 H (5-37) U/L ALT 292 H (0-40) U/L Alkaline Phosphatase 259 H (39-117) U/L Troponin I High Sens 6.1 D (<3.5-35.0) ng/L Total Protein 7.3 (6.5-8.0) g/dL Albumin 4.8 (3.5-5.0) g/dL Independent Interpretation I performed an independent interpretation of an: Ultrasound and CT Scan Interpretation: RUQ US showing cholelithiasis CT a/p w/o bowel obstruction Radiology Impression Discussion of test interpretation with radiology: I have reviewed the radiologist's reading. Radiologist Impression: Date of Service: 05/12/25 Procedure(s): US abdomen limited Accession Number(s): [id number] cc: Seth Boyer MD; Claire Freed~ Reason for Exam: RUQ pain CLINICAL HISTORY: RUQ pain --- Additional Notes or Special Instructions: look at GB, ducts, liver, pancreas US limited to right upper quadrant Comparison: None Findings: Liver is normal size and reveals homogeneous echotexture. No focal hepatic lesions. No intrahepatic ductal dilatation. Right lobe length measures 14.1 cm. Portal vein reveals hepatopetal flow. Common bile duct measures 4 mm. Gallbladder contains shadowing stones. Evaluation for wall thickening is limited by nondistention. While may measure up to 4 mm thickness. No pericholecystic fluid.. Medical Coder notes indicate tenderness scanning over the gallbladder.. Impression: 1. Cholelithiasis. Evaluation for wall thickening is limited by incomplete distention of the gallbladder. Medical Coder reports some tenderness while scanning in this region. Findings are indeterminate in terms of meeting sonographic criteria for cholecystitis. This document has been electronically signed by: J Luis Johnston MD on 05/12/2025 17:11:03 Procedure(s): CT abdomen pelvis w IV con Accession Number(s): [id number] cc: Seth Boyer MD; Claire Freed~ Report Number: [id number]: Total DLP = 613.00 mGy-cm Reason for Exam: RUQ pain CLINICAL HISTORY: RUQ pain CT abdomen and pelvis with contrast Comparison: None provided Findings: The lung bases are clear. Cholelithiasis. The left and right kidney demonstrate symmetric corticomedullary enhancement. The liver spleen and pancreas and adrenals are within normal limits. There is diffuse fecal material seen throughout the colon. The appendix not grossly identified. Calcified coronary atherosclerotic disease. Mild calcified atherosclerotic disease of the abdominal aorta. Mesenteric root geographic area of heterogeneous low-attenuation, 11.6 x 4.8 x 12 cm with prominent mesenteric root lymph nodes. The prostate is within normal limits. The bones are intact. Prior sternotomy. IMPRESSION: 1. Mesenteric root heterogeneous low-attenuation mass (11.6 x 4.8 x 12 cm) with prominent mesenteric root lymph nodes; supraumbilical mesenteric panniculitis. 2. Cholelithiasis. 3. Constipation. 4. Calcified coronary atherosclerotic disease. 5. Mild calcified atherosclerotic disease of the abdominal aorta. 6. Prior sternotomy. This document has been electronically signed by: Salvador Crump MD on 05/12/2025 19:47:43 Independent Historian Clinical information obtained from an independent historian. History obtained from or confirmed by: Spouse External Record Review External record reviewed: Inpatient record, Office record, Outpatient record and Prior outpatient labs Prescription Management I considered prescription management with: Pain Medication Chronic Conditions Patient?s care impacted by: Diabetes and Other (cholelithiasis) Social Determinants Patient?s care significantly limited by Social Determinants of Health including: Other Social Determinant of Health Medications Administered Discontinued Medications Generic Name Dose Route Start Last Admin Trade Name Freq PRN Reason Stop Dose Admin Acetaminophen 650 mg 05/12/25 20:38 05/13/25 17:52 Acetaminophen 325 Mg Tablet PO 650 mg Q6H PRN Administration Pain, Mild 1-3,fever,headache Sodium Chloride 1,000 mls @ 999 mls/hr 05/12/25 18:00 05/12/25 22:12 Ns IV 05/12/25 19:00 Infused .Q1H1M OSBALDO Infusion Acetaminophen 1,000 mg in 100 mls @ 400 mls/hr 05/12/25 17:48 05/12/25 18:41 Ofirmev IV 05/12/25 18:02 Infused ONCE ONE Infusion Lactated Ringer's 1,000 mls @ 125 mls/hr 05/12/25 20:45 05/14/25 08:22 Lr IVCONT Infused .Q8H OSBALDO Infusion Metronidazole 500 mg in 100 mls @ 100 mls/hr 05/13/25 09:00 05/14/25 08:40 Flagyl IV Not Given Q12H [facility] Ceftriaxone Sodium 1 gm/ 50 mls @ 100 mls/hr 05/13/25 09:00 05/14/25 08:40 Sodium Chloride IV Not Given Q24H [facility] Insulin Human Lispro 0 unit 05/13/25 00:00 05/14/25 06:18 Insulin Lispro 100 Unit/Ml 3 Ml Vial SUBCUT Not Given Q6H [facility] Protocol Iohexol 100 ml 05/12/25 18:43 05/12/25 18:43 Iohexol 350 Mg/Ml 100 Ml Infus..Btl IV 05/12/25 18:44 85 ml ONCE ONE Administration Melatonin 6 mg 05/12/25 20:38 05/13/25 22:08 Melatonin 3 Mg Tablet PO 6 mg BEDTIME PRN Administration Insomnia Senna 17.2 mg 05/12/25 21:00 05/13/25 22:02 Sennosides 8.6 Mg Tablet PO 17.2 mg BEDTIME OSBALDO Administration Sodium Chloride 3 ml 05/13/25 00:00 05/14/25 08:23 0.9 % Sodium Chloride Flush 3 Ml Syringe IVFLUSH Not Given QSHIFT OSBALDO Critical Care Time Critical Care Time Critical Care Time: Yes Total Critical Care Time: 50 Attestation: Critical care time in the amount of 50 minutes has been provided to the patient in terms of direct patient care, frequent reevaluation, consultation with GI/general surgery/hospitalist, review and interpretation of medical data and results, and management of potentially life-threatening conditions. This is all outside of any medical procedures. Discharge Plan Discharge Clinical Impression: Impacted gallstone of gallbladder, Transaminitis Patient Disposition: Admitted As Inpatient Interventions: Admission Worksheet (ED) Last Done: 05/13/25 07:20 Discharge Date/Time: 05/13/25 08:34
[2025-05-12 15:52] LABS: MANUAL DIFF FLAG NO
[2025-05-12 15:54] LABS: Hematocrit 43.8 % (42.0-52.0); Hemoglobin 14.7 g/dl (14.0-18.0); Imm Gran Abs Auto 0.05 X10*3/uL (0.00-0.03); Imm Gran Pct Auto 0.7 % (0.0-0.4); Lymphocytes Absolute Auto 1.5 X10*3/uL (1.2-4.9); Mean Corpuscular HGB Conc 33.6 g/dl (31.0-36.0); Mean Corpuscular Hemoglobin 29.3 pg (27.0-33.0); Mean Corpuscular Volume 87.3 fL (80.0-98.0); NRBC Abs Auto 0.000 X10*3/uL (0.0-0.012); NRBC Pct Auto 0.0 /100WBC (0.0-0.2); Platelet Count 296 X10*3/uL (160-400); Red Blood Count 5.02 X10*6/uL (4.60-5.80); White Blood Count 7.1 X10*3/uL (4.8-10.8)
[2025-05-12 16:13] LABS: Alanine Aminotransferase 292 U/L (0-40); Albumin Level 4.8 g/dL (3.5-5.0); Alkaline Phosphatase 259 U/L (39-117); Anion Gap 14 (12-20); Aspartate Amino Transferase 286 U/L (5-37); Blood Urea Nitrogen 13 mg/dL (9-16); Calcium 9.3 mg/dL (8.4-10.2); Carbon Dioxide 23 mmol/L (22-29); Chloride 106 mmol/L (96-108); Creatinine Clr Calc Pharmacy 113.6; Estimated Glomerular Filt Rate > 60; Potassium 4.2 mmol/L (3.3-5.1); Sodium 139 mmol/L (135-145); Total Protein 7.3 g/dL (6.5-8.0)
[2025-05-12 16:20] LABS: Troponin-I High Sensitivity 6.1 ng/L (<3.5-35.0)
[2025-05-12 18:08] VITALS: BP 121/68; PULSE 75; RESP 16; TEMP 36.4; O2SAT 96
--- NOTE | 2025-05-12 18:42 | PC.NURSE ---
Pt reporting starting last night he was having right sided abdominal pain, pt reporting his pain has improved, but that he has not ate or drank anything since this morning when he had some toast. Pt reporting mild nausea. IV placed, IVF infusing per order, pt at CT currently. at bedside. Pt reporting no other previous concerns with his gallbladder, has no appendix at this time. Pt placed on monitor, call trent within reach, awaiting dispo plan
[2025-05-12] MEDS: iohexoL 350 MG/ML 100 ML INFUS..BTL IV (18:43)
--- NOTE | 2025-05-12 20:41 | PM.IMHP ---
History of Present Illness Date of Service: 05/12/25 Attending physician on admission: Casper Avila Chief Complaint: abd pain 60 Year old male with past medical history CAD, elective CABG x3 s/p positive stress test November 2024 ([facility] [address]. [facility]) with associated nondisplaced fractures of the left posterior medial 1st and 2nd ribs, choledolithiasis, appendectomy, bilateral shoulder surgery for frozen shoulder, ASthma, IDDM on Tirzepatide, otthostatic hypotension s/p CABG prompting pt to come off BB, HLD, recent episodes of hypoglycemia after starting Monjouro 1 month prior, left lateral upper foot callus, hx of R toe infection 2022 presents to the ED with RUQ abdoiminal pain that started 5 PM Wednesday and lasted through 1AM this morning. Pt had one episode of severe Nausea and Vomiting. Pt unable to tolerate food overall without nausea so pt decided to be seen for further evaluation. Pt found to have a mesenteric root heterogeneous low-attenuation mass with prominent mesenteric root lymph nodes, supra medical mesenteric panniculitis, cholelithiasis, and constipation. Ultrasound evident for cholelithiasis without sonographic criteria for cholecystitis. ED provider discussed case with both General surgery and GI and both agreed that patient should be admitted for further evaluation to include an MRCP. Dr. Desai permitted ordering the MRCP for the a.m.. Patient currently denies any abdominal pain and states that the IV Tylenol was very effective. Patient denies need for higher level of pain management to include narcotics at this time. Patient currently not having any nausea or vomiting, diarrhea or constipation. Patient denies any chest pain, shortness of breath at rest and difficulty swallowing. Patient denies any symptoms of GERD. Patient does not have leukocytosis or evidence of anemia. Electrolytes are stable and renal function is at baseline. Random glucose 216. Total bilirubin 1.2, AST 286, ALT 292, alk-phos 259, direct bilirubin 0.5. Reviewed plan of care with patient and patient is agreeable for admission for impacted gallstone with further workup in the a.m. and expert consultation with GI and General surgery. Review of Systems Review of Systems: Patient currently not having any nausea or vomiting, diarrhea or constipation. Patient denies any chest pain, shortness of breath at rest and difficulty swallowing. Patient denies any symptoms of GERD. Yes all other systems are reviewed and are negative [facility] Medical History Multiple rib fractures Erectile dysfunction Cholelithiases Retinopathy, background, nonproliferative, mild Primary hypertension Ulcer of right great toe due to diabetes mellitus Type 2 diabetes mellitus with hyperglycemia HLD (hyperlipidemia) CAD (coronary artery disease) Gallstones Obesity (BMI 30-39.9) Blood pressure elevated without history of HTN Finger stiffness Trigger finger, left middle finger Trigger finger, left index finger Chest discomfort Trigger finger, right index finger Trigger finger, right middle finger Abnormal stress ECG with treadmill Diarrhea Asthma Cognitive capacity: Alert and orientated x3 Functional capacity: independent ambulation Family History Mother Emphysema lung Father Heart failure Brother Substance use disorder Mental health disorder Brother No problems noted. Brother No problems noted. Sister No problems noted. Daughter No problems noted. Son No problems noted. Son No problems noted. Surgical History S/P CABG x 3 Hx of cardiac cath Hx of tonsillectomy Aftercare following bilateral shoulder joint replacement surgery History of appendectomy Social History Housing: House Alcohol intake: current Alcohol intake frequency: a few times a week Alcohol type: beer Patient Tobacco Use Status: Never used Tobacco Tobacco use type: Cigarette e-Cigarette/Vaping Use: Never Used Second Hand Smoke Exposure: No Use of substances other than those prescribed or required for medical reasons: No Advance Directives: No Advance Directives Information Provided: No Do you have a plan to hurt others: No Plan Nutrition Risks: No Nutritional Risk service: No Current occupational status: employed Cognitive needs: No Hearing needs: No Vision needs: Yes (Glasses) Ebola Risk: Travel/Contact With Anyone From Affected Area/s: No Has Patient Experienced Ebola Symptoms: No Meds Allergies Allergy/AdvReac Type Severity Reaction Status Date / Time semaglutide (From Ozempic) AdvReac Intermediate burping Verified 05/12/25 15:30 Active Medications: Current Medications Acetaminophen (Acetaminophen 325 Mg Tablet) 650 mg PO Q6H PRN PRN Reason: Pain, Mild 1-3,fever,headache Calcium Carbonate (Calcium Carbonate 750 Mg Tab.Chew) 750 mg PO Q4H PRN PRN Reason: Heartburn Lactated Ringer's (Lr) 1,000 mls @ 125 mls/hr IVCONT .Q8H OSBALDO Magnesium Hydroxide (Milk Of Magnesia 30 Ml Oral.Susp) 30 ml PO DAILY PRN PRN Reason: Constipation Melatonin (Melatonin 3 Mg Tablet) 6 mg PO BEDTIME PRN PRN Reason: Insomnia Ondansetron HCl (Ondansetron Hcl 4 Mg/2 Ml Vial) 4 mg IVPUSH Q8H PRN PRN Reason: Nausea and Vomiting Polyethylene Glycol (Polyethylene Glycol 3350 17 Gm Powd.Pack) 17 gm PO DAILY PRN PRN Reason: Constipation Senna (Sennosides 8.6 Mg Tablet) 17.2 mg PO BEDTIME OSBALDO Sodium Chloride (0.9 % Sodium Chloride Flush 3 Ml Syringe) 3 ml IVFLUSH QSHIFT OSBALDO Home Medications ?Medication ?Instructions ?Recorded ?Confirmed ?Last Taken ?Type multivitamin 1 tab PO DAILY 08/25/22 03/14/25 Unknown History aspirin 81 mg tablet,delayed 81 mg PO DAILY 09/05/24 03/14/25 Unknown History release (Adult Aspirin Regimen) insulin glargine 100 unit/mL (3 28 unit subcut QPM 05/12/25 Unknown History mL) subcutaneous pen (Lantus Solostar U-100 Insulin) Physical Exam Vital Signs and Narrative: Vital Signs: Last Vital Signs Temp 97.6 F 05/12/25 18:08 Pulse 75 05/12/25 18:08 Resp 16 05/12/25 18:08 BP 121/68 05/12/25 18:08 Pulse Ox 96 05/12/25 18:08 O2 Del Method Room Air 05/12/25 18:08 BMI result Body Mass Index 28.5 Alert and orientated X3, able to give good history. Neuro: CN II-X11 intact, no deficits, visual acuity intact EYES: PERRLA, EOM intact, sclerae not, conjunctiva ENT: hearing intact, no issues with swallowing, uvula midline, lips moist, nares patent no epistaxis Cardiac: S1 S2 RRR, no murmur, no JVD, no edema in Lower ext, sternotomy incision noted fully healed Pulmonary: lungs clear to auscultation B Abdominal: BS active in all 4 quadrants, mild guarding right upper quadrant, mild tenderness, no rebounding MSK: strength 5/5 upper and lower extremities : no CVA tenderness no bladder distension Extremities: no edema in lower extremities, PT and DP pulses palpable +2 Psych: mood stable, judgement and insight good Skin: Small callus along the lateral aspect of the left pinky toe and bone area Results Labs 05/12/25 15:44 05/12/25 15:44 Labs: Laboratory Results - last 24 hr 05/12/25 15:44 MCV 87.3 MCH 29.3 MCHC 33.6 RDW 13.7 Plt Count 296 MPV 9.9 Immature Gran % (Auto) 0.7 H Neut % (Auto) 67.1 Lymph % (Auto) 20.7 Caswell % (Auto) 9.5 Eos % (Auto) 1.4 Baso % (Auto) 0.6 Lymph # (Auto) 1.5 Caswell # (Auto) 0.7 Eos # (Auto) 0.1 Baso # (Auto) 0.0 Abs Immat Gran (auto) 0.05 H Absolute Neuts (auto) 4.8 Absolute Nucleated RBC 0.000 Nucleated RBC % (auto) 0.0 Anion Gap 14 Estim Creat Clear Calc 113.6 Estimated GFR > 60 Random Glucose 216 H Calcium 9.3 Total Bilirubin 1.2 H Direct Bilirubin 0.5 AST 286 H ALT 292 H Alkaline Phosphatase 259 H Troponin I High Sens 6.1 D Total Protein 7.3 Albumin 4.8 ECG Attestation: I personally reviewed and interpreted this ECG as follows: (Normal sinus rhythm QTC 421) Prior ECG tracings: available for review Imaging Radiologist's Impressions: Abdomen and pelvis CT IMPRESSION: 1. Mesenteric root heterogeneous low-attenuation mass (11.6 x 4.8 x 12 cm) with prominent mesenteric root lymph nodes; supraumbilical mesenteric panniculitis. 2. Cholelithiasis. 3. Constipation. 4. Calcified coronary atherosclerotic disease. 5. Mild calcified atherosclerotic disease of the abdominal aorta. 6. Prior sternotomy. Abdominal ultrasound Impression: 1. Cholelithiasis. Evaluation for wall thickening is limited by incomplete distention of the gallbladder. Policy Value Calculator reports some tenderness while scanning in this region. Findings are indeterminate in terms of meeting sonographic criteria for cholecystitis. Assessment and Plan (1) Impacted gallstone of gallbladder: Status: Acute (2) Transaminitis: Status: Acute (3) Abdominal pain: Qualifiers: Abdominal location: right upper quadrant Qualified Code(s): R10.11 - Right upper quadrant pain Status: Acute Plan 60 Year old male with past medical history CAD, elective CABG x3 s/p positive stress test November 2024 ([facility] [address] [facility]) with associated nondisplaced fractures of the left posterior medial 1st and 2nd ribs, choledolithiasis, appendectomy, bilateral shoulder surgery for frozen shoulder, ASthma, IDDM on Tirzepatide, otthostatic hypotension s/p CABG prompting pt to come off BB, HLD, recent episodes of hypoglycermia, left lateral upper foot callus, hx of R toe infection 2022 presents to the ED with RUQ abdoiminal pain that started 5 PM Wednesday and lasted through 1AM this morning. Pt had obne episode of severe Nausea and Vomiting. Pt unable to tolerate food overall without nausea so pt deciced to be seen for further evaluation. Patient being admitted for cholelithiasis without sonographic evidence of cholecystitis and further evaluation via MRCP per GI. Cholelithiasis without sonographic evidence of cholecystitis GI and general surgery both consulted and aware of patient's admission Dr. Desai agreeable with MRCP in the a.m., patient will be NPO at midnight Nonnarcotic pain management and will have available narcotic pain management for any acute episodes of flares IV hydration continues Incidental finding mesenteric mass Differentials could include tumor, cyst, panniculitis, or even Castleman disease GI consulted IDDM on tirzepatide Recent episodes of hypoglycemia, patient has been adjusting his Lantus on his own, may be attributed to the tirzepatide Pt prescribed Tirzepatide via PCP 1 month ago SSI Diabetic diet NPO after midnight, SSI will be adjusted Patient aware that we can not use his continuous glucose monitor, agreed with POC glucose checks as scheduled Holding Jardiance and metformin A1c 7.14 January 2025 Hypertension Continue lisinopril 5 mg Low-sodium diet HLD Continue statin once med rec completed Cardiac diet CAD/ CABG X3 November 2024 Continue aspirin, statin and lisinopril Patient's metoprolol was discontinued due to orthostatic hypotension No indication for telemetry at this time EKG negative for ischemic changes or acute findings Chronic constipation Likely secondary to Tirzepatide Bowel regimen ordered CT negative for any acute findings regarding bowel obstruction or ileus Small callus left lateral upper foot Patient educated to obtain Podiatry consult as an outpatient Patient is entitled to the service based on his diabetes Patient currently wears diabetic shoes DVT prophylaxis: Held in case patient requires surgery Med rec pending Full code. Patient will require at least 2 midnight stay for expert consultation with GI and General surgery for cholelithiasis without sonographic evidence of cholecystitis. Patient will require MRCP in the a.m.. Quality Stroke Does the patient have a stroke diagnosis?: No Reason for No Anti-thrombotic by Day Two: N/A - Med Ordered VTE Prior VTE?: No VTE Risk Level:: Medical - low VTE Device Contraindication: N/A - Device Ordered VTE Drug Contraindication: Treatment Not Indicated
--- NOTE | 2025-05-12 20:58 | PM.CNGS ---
History of Present Illness Consult details Consult date: 05/12/25 Narrative: 60-year-old male referred for gallstones . He actually came to the emergency room earlier today because of abdominal pain. He describes this has diffuse. He says that this actually started yesterday on 05:00 in the afternoon and he said he had significant pain all night. He is describes multiple episodes of vomiting. He says that his pain improved significantly around 02:00 in the morning. However, he says that he then had some pain again throughout the day today although this was much milder. He has a significant history of coronary artery disease. He had CABG last September,. He is also known diabetic. He denies any fever or chills. He currently says that he does not seem to have significant abdominal pain. He describes some vague mild discomfort. Review of Systems Constitutional: Constitutional: Denies chills and Denies fever(s) Cardiovascular: Cardiovascular: Denies chest pain, Denies dyspnea and Denies dyspnea on exertion Respiratory: Respiratory: Denies cough, Denies dyspnea and Denies dyspnea on exertion Gastrointestinal: Gastrointestinal: Denies hematochezia and Denies change in bowel habits Genitourinary: Genitourinary: Denies hematuria and Denies difficulty urinating Musculoskeletal: Musculoskeletal: Denies back pain and Denies limited range of motion Neurologic: Denies focal weakness and Denies convulsions Psychiatric: Psychiatric: Denies depression and Denies mood swings PMFSH Past Medical History Medical History Multiple rib fractures Erectile dysfunction Cholelithiases Retinopathy, background, nonproliferative, mild Primary hypertension Ulcer of right great toe due to diabetes mellitus Type 2 diabetes mellitus with hyperglycemia HLD (hyperlipidemia) CAD (coronary artery disease) Gallstones Obesity (BMI 30-39.9) Blood pressure elevated without history of HTN Finger stiffness Trigger finger, left middle finger Trigger finger, left index finger Chest discomfort Trigger finger, right index finger Trigger finger, right middle finger Abnormal stress ECG with treadmill Diarrhea Asthma Family History Family History Mother Emphysema lung Father Heart failure Brother Substance use disorder Mental health disorder Brother No problems noted. Brother No problems noted. Sister No problems noted. Daughter No problems noted. Son No problems noted. Son No problems noted. Surgical History Surgical History S/P CABG x 3 Hx of cardiac cath Hx of tonsillectomy Aftercare following bilateral shoulder joint replacement surgery History of appendectomy Social History Social History Household Members: Spouse Housing: House Alcohol intake: current Alcohol intake frequency: a few times a week Alcohol type: beer Patient Tobacco Use Status: Never used Tobacco Tobacco use type: Cigarette e-Cigarette/Vaping Use: Never Used Second Hand Smoke Exposure: No service: No Current occupational status: employed Cognitive needs: No Hearing needs: No Vision needs: Yes (Glasses) Meds Allergies Allergy/AdvReac Type Severity Reaction Status Date / Time semaglutide (From Ozempic) AdvReac Intermediate burping Verified 05/12/25 15:30 Active Medications: Current Medications Acetaminophen (Acetaminophen 325 Mg Tablet) 650 mg PO Q6H PRN PRN Reason: Pain, Mild 1-3,fever,headache Calcium Carbonate (Calcium Carbonate 750 Mg Tab.Chew) 750 mg PO Q4H PRN PRN Reason: Heartburn Lactated Ringer's (Lr) 1,000 mls @ 125 mls/hr IVCONT .Q8H OSBALDO Magnesium Hydroxide (Milk Of Magnesia 30 Ml Oral.Susp) 30 ml PO DAILY PRN PRN Reason: Constipation Melatonin (Melatonin 3 Mg Tablet) 6 mg PO BEDTIME PRN PRN Reason: Insomnia Ondansetron HCl (Ondansetron Hcl 4 Mg/2 Ml Vial) 4 mg IVPUSH Q8H PRN PRN Reason: Nausea and Vomiting Polyethylene Glycol (Polyethylene Glycol 3350 17 Gm Powd.Pack) 17 gm PO DAILY PRN PRN Reason: Constipation Senna (Sennosides 8.6 Mg Tablet) 17.2 mg PO BEDTIME OSBALDO Sodium Chloride (0.9 % Sodium Chloride Flush 3 Ml Syringe) 3 ml IVFLUSH QSHIFT OSBALDO Home Medications ?Medication ?Instructions ?Recorded ?Confirmed ?Last Taken ?Type multivitamin 1 tab PO DAILY 08/25/22 03/14/25 Unknown History aspirin 81 mg tablet,delayed 81 mg PO DAILY 09/05/24 03/14/25 Unknown History release (Adult Aspirin Regimen) insulin glargine 100 unit/mL (3 28 unit subcut QPM 05/12/25 Unknown History mL) subcutaneous pen (Lantus Solostar U-100 Insulin) Physical Exam Vital Signs: Vital Signs: Last Vital Signs Temp 97.6 F 05/12/25 18:08 Pulse 75 05/12/25 18:08 Resp 16 05/12/25 18:08 BP 121/68 05/12/25 18:08 Pulse Ox 96 05/12/25 18:08 O2 Del Method Room Air 05/12/25 18:08 BMI result Body Mass Index 28.5 Const: General: comfortable and no acute distress Orientation/consciousness: patient oriented x3 Neck: Neck: Yes no lymphadenopathy Resp: Auscultation: clear to auscultation bilaterally Cardio: Rhythm: regular rhythm GI: Other: Currently with a feeds sign Palpation (GI): Soft to palpation, nontender and no guarding Neuro: General: patient oriented x3 Results Labs 05/13/25 05:26 05/13/25 05:26 Labs: Abnormal lab results 05/12/25 Range/Units 15:44 Immature Gran % (Auto) 0.7 H (0.0-0.4) % Abs Immat Gran (auto) 0.05 H (0.00-0.03) X10*3/uL Random Glucose 216 H (60-115) mg/dL Total Bilirubin 1.2 H (0.0-1.0) mg/dL AST 286 H (5-37) U/L ALT 292 H (0-40) U/L Alkaline Phosphatase 259 H (39-117) U/L Short CBC 05/12/25 Range/Units 15:44 WBC 7.1 (4.8-10.8) X10*3/uL Hgb 14.7 (14.0-18.0) g/dl Hct 43.8 (42.0-52.0) % Plt Count 296 (160-400) X10*3/uL BMP 05/12/25 15:44 Sodium 139 Potassium 4.2 Chloride 106 Carbon Dioxide 23 BUN 13 Creatinine 0.78 Calcium 9.3 Liver Function 05/12/25 Range/Units 15:44 Total Bilirubin 1.2 H (0.0-1.0) mg/dL Direct Bilirubin 0.5 (0.0-0.5) mg/dL AST 286 H (5-37) U/L ALT 292 H (0-40) U/L Alkaline Phosphatase 259 H (39-117) U/L Albumin 4.8 (3.5-5.0) g/dL All other labs normal. CLINICAL HISTORY: RUQ pain CT abdomen and pelvis with contrast Comparison: None provided Findings: The lung bases are clear. Cholelithiasis. The left and right kidney demonstrate symmetric corticomedullary enhancement. The liver spleen and pancreas and adrenals are within normal limits. There is diffuse fecal material seen throughout the colon. The appendix not grossly identified. Calcified coronary atherosclerotic disease. Mild calcified atherosclerotic disease of the abdominal aorta. Mesenteric root geographic area of heterogeneous low-attenuation, 11.6 x 4.8 x 12 cm with prominent mesenteric root lymph nodes. The prostate is within normal limits. The bones are intact. Prior sternotomy. IMPRESSION: 1. Mesenteric root heterogeneous low-attenuation mass (11.6 x 4.8 x 12 cm) with prominent mesenteric root lymph nodes; supraumbilical mesenteric panniculitis. 2. Cholelithiasis. 3. Constipation. 4. Calcified coronary atherosclerotic disease. 5. Mild calcified atherosclerotic disease of the abdominal aorta. 6. Prior sternotomy. Assessment and Plan (1) Gallstones: Status: Acute He arrived having significant abdominal pain since yesterday although this has improved today I have reviewed his imaging studies including in his CAT scan. There is note of a gallstone without inflammatory changes in the gallbladder. The gallstone actually does not appear impacted in the neck The gallbladder also not distended which suggests less likelihood of acute cholecystitis. He currently does not seem to have Estevez's sign as well . He has significant transaminase elevation. This may be secondary to liver parenchymal disease although a CBD stone can not be ruled out in view of some mildly elevated bilirubin as well. I agree with checking with the MRCP. His CAT scan also shows a mesenteric root low attenuation mass with prominent lymph nodes. This may require further workup and monitoring down the line He has a very benign exam. I will follow along while he is in the hospital. His LFTs should be followed as well. Procedures Date of Service Date of Service: 05/13/25
[2025-05-12] MEDS: Lactated Ringers 1,000 ML 125 ML IVCONT (21:59)
[2025-05-13] VITALS (7 sets, daily range): BP systolic 116–135; BP diastolic 60–74; PULSE 60–84; RESP 10–18; TEMP 36–37; O2SAT 94–98; BMI 28.4
[2025-05-13 00:26] LABS: Glucose, Whole Blood 111 mg/dL (60-115)
[2025-05-13 05:46] LABS: MANUAL DIFF FLAG NO
[2025-05-13 05:49] LABS: Hematocrit 43.4 % (42.0-52.0); Hemoglobin 14.2 g/dl (14.0-18.0); Imm Gran Abs Auto 0.08 X10*3/uL (0.00-0.03); Imm Gran Pct Auto 1.1 % (0.0-0.4); Lymphocytes Absolute Auto 1.5 X10*3/uL (1.2-4.9); Mean Corpuscular HGB Conc 32.7 g/dl (31.0-36.0); Mean Corpuscular Hemoglobin 29.5 pg (27.0-33.0); Mean Corpuscular Volume 90.0 fL (80.0-98.0); NRBC Abs Auto 0.000 X10*3/uL (0.0-0.012); NRBC Pct Auto 0.0 /100WBC (0.0-0.2); Platelet Count 264 X10*3/uL (160-400); Red Blood Count 4.82 X10*6/uL (4.60-5.80); White Blood Count 7.3 X10*3/uL (4.8-10.8)
[2025-05-13] MEDS: Lactated Ringers 1,000 ML 125 ML IVCONT ×3 (06:04→22:02)
[2025-05-13 06:07] LABS: Alanine Aminotransferase 259 U/L (0-40); Albumin Level 4.4 g/dL (3.5-5.0); Alkaline Phosphatase 239 U/L (39-117); Anion Gap 13 (12-20); Aspartate Amino Transferase 173 U/L (5-37); Blood Urea Nitrogen 10 mg/dL (9-16); Calcium 8.8 mg/dL (8.4-10.2); Carbon Dioxide 25 mmol/L (22-29); Chloride 108 mmol/L (96-108); Creatinine Clr Calc Pharmacy 112.2; Estimated Glomerular Filt Rate > 60; Potassium 4.4 mmol/L (3.3-5.1); Sodium 142 mmol/L (135-145); Total Protein 6.7 g/dL (6.5-8.0)
[2025-05-13 06:11] LABS: Glucose, Whole Blood 110 mg/dL (60-115)
--- NOTE | 2025-05-13 07:16 | HO.NURTONUR ---
60 yr old male admitted for impacted gallstones/abd pain. Pt arrives to ED on 05/12/25 with R upper adm pain and vomiting. A&Ox3 VSS, afebrile Hx DM with controlled blood glucose levels. Increased liver enzymes noted. NPO at this time GI and General Surgery to follow. 20g LFA LR running at 125 ml/hr
--- NOTE | 2025-05-13 08:46 | PM.GICN ---
History of Present Illness Data of Consult Service Date: 05/13/25 Primary Care Provider: Seth Boyer MD HPI Reason for consult: abdominal pain 60 Year old male with past medical history CAD, elective CABG x3, appendectomy, bilateral shoulder surgery for frozen shoulder, ASthma, IDDM on Tirzepatide, who I am seeing for assessment of abdominal pain and abn LFT Patient presents with few days of 10/10 crampy RUQ abdominal pain, without radiation and no relieving factors with nausea and non bloody emesis. He has mild constipation, no melena or rectal bleeding. Denies fevers, jaundice or pale stools, dark urine. Today he feels better and pain is much improved and he feels hungry. Patient tomás he was told about 5 yrs ago he needed his GB removed but he left it. IMAGING: MRCP with large gallstone in GB, no filling defects in CBD. CT: mesenteric hazziness and attenuation LABS: elevated transaminases --Electrolytes are stable and renal function is at baseline. Random glucose 216. Total bilirubin 1.2, AST 286, ALT 292, alk-phos 259, direct bilirubin 0.5 Review of Systems Review of Systems: Constitutional : No Weight loss, No Fever, No Chills ENT/Mouth : No sore throat, No Rhinorrhea Eyes: No Swelling, No Redness Cardiovascular : No Chest Pain, No SOB, No Edema Respiratory : No Cough, No Sputum, No Wheezing Gastrointestinal : see HPI Genitourinary : NO Dysuria, No Urinary Frequency, No Hematuria, No Urgency Musculoskeletal : no joint pain, No Myalgias, No Joint Swelling Skin : No Skin Lesions, No rash Neuro : No Weakness, No Numbness, No Dizziness, No Headache Psych : No Anxiety/Panic, No Depression Heme/Lymph: No Bruising, No Lymphadenopathy Endocrine : No Polyuria, No Polydipsia All other systems reviewed and are negative. [facility] Past Medical History Medical History Multiple rib fractures Erectile dysfunction Cholelithiases Retinopathy, background, nonproliferative, mild Primary hypertension Ulcer of right great toe due to diabetes mellitus Type 2 diabetes mellitus with hyperglycemia HLD (hyperlipidemia) CAD (coronary artery disease) Gallstones Obesity (BMI 30-39.9) Blood pressure elevated without history of HTN Finger stiffness Trigger finger, left middle finger Trigger finger, left index finger Chest discomfort Trigger finger, right index finger Trigger finger, right middle finger Abnormal stress ECG with treadmill Diarrhea Asthma Family History Family History Mother Emphysema lung Father Heart failure Brother Substance use disorder Mental health disorder Brother No problems noted. Brother No problems noted. Sister No problems noted. Daughter No problems noted. Son No problems noted. Son No problems noted. Surgical History Surgical History S/P CABG x 3 Hx of cardiac cath Hx of tonsillectomy Aftercare following bilateral shoulder joint replacement surgery History of appendectomy Social History Social History Household Members: Spouse Housing: House Alcohol intake: current Alcohol intake frequency: a few times a week Alcohol type: beer Patient Tobacco Use Status: Never used Tobacco Tobacco use type: Cigarette e-Cigarette/Vaping Use: Never Used Second Hand Smoke Exposure: No service: No Current occupational status: employed Cognitive needs: No Hearing needs: No Vision needs: Yes (Glasses) Travel History Ebola Risk: Travel/Contact With Anyone From Affected Area/s: No Has Patient Experienced Ebola Symptoms: No Meds Allergies Allergy/AdvReac Type Severity Reaction Status Date / [facility] AdvReac Intermediate burping Verified 05/12/25 15:30 Active Medications: Current Medications Acetaminophen (Acetaminophen 325 Mg Tablet) 650 mg PO Q6H PRN PRN Reason: Pain, Mild 1-3,fever,headache Calcium Carbonate (Calcium Carbonate 750 Mg Tab.Chew) 750 mg PO Q4H PRN PRN Reason: Heartburn Dextrose (Dextrose 50 % 25 Gm/50 Ml Syringe) 25 gm IVPUSH Q15M PRN; Protocol PRN Reason: per Hypoglycemia Standing Ord. Glucose (Glucose Gel 15 Gm Gel..Gram.) 15 gm PO Q15M PRN; Protocol PRN Reason: per Hypoglycemia Standing Ord. Hydromorphone HCl (Hydromorphone Hcl 1 Mg/Ml Syringe) 0.5 mg IVPUSH Q4H PRN; Protocol PRN Reason: Pain, Severe (Pain Scale 7-10) Lactated Ringer's (Lr) 1,000 mls @ 125 mls/hr IVCONT .Q8H [facility] Last Admin: 05/13/25 06:04 Dose: 125 mls/hr Metronidazole (Flagyl) 500 mg in 100 mls @ 100 mls/hr IV Q12H [facility] Ceftriaxone Sodium 1 gm/ (Sodium Chloride) 50 mls @ 100 mls/hr IV Q24H [facility] Insulin Human Lispro (Insulin Lispro 100 Unit/Ml 3 Ml Vial) 0 unit SUBCUT Q6H [facility]; Protocol Last Admin: 05/13/25 06:04 Dose: Not Given Ketorolac Tromethamine (Ketorolac Tromethamine 15 Mg/Ml Vial) 15 mg IVPUSH Q6H PRN PRN Reason: Pain, Moderate(Pain Scale 4-6) Magnesium Hydroxide (Milk Of Magnesia 30 Ml Oral.Susp) 30 ml PO DAILY PRN PRN Reason: Constipation Melatonin (Melatonin 3 Mg Tablet) 6 mg PO BEDTIME PRN PRN Reason: Insomnia Ondansetron HCl (Ondansetron Hcl 4 Mg/2 Ml Vial) 4 mg IVPUSH Q8H PRN PRN Reason: Nausea and Vomiting Polyethylene Glycol (Polyethylene Glycol 3350 17 Gm Powd.Pack) 17 gm PO DAILY PRN PRN Reason: Constipation Senna (Sennosides 8.6 Mg Tablet) 17.2 mg PO BEDTIME [facility] Last Admin: 05/12/25 21:59 Dose: 17.2 mg Sodium Chloride (0.9 % Sodium Chloride Flush 3 Ml Syringe) 3 ml IVFLUSH QSHIFT [facility] Last Admin: 05/13/25 07:02 Dose: Not Given Home Medications ?Medication ?Instructions ?Recorded ?Confirmed ?Last Taken ?Type multivitamin 1 tab PO DAILY 08/25/22 05/13/25 Unknown History aspirin 81 mg tablet,delayed 81 mg PO DAILY 09/05/24 05/13/25 Unknown History release (Adult Aspirin Regimen) insulin glargine 100 unit/mL (3 22 unit subcut BEDTIME 05/12/25 05/13/25 Unknown History mL) subcutaneous pen (Lantus Solostar U-100 Insulin) rosuvastatin 40 mg tablet 40 mg PO BEDTIME 05/13/25 05/13/25 Unknown History tirzepatide 2.5 mg/0.5 mL 2.5 mg subcut FR@0900 05/13/25 05/13/25 05/04/25 History subcutaneous pen injector (Mounjaro) Physical Exam Exam: Exam: EXAM: GENERAL: The patient is well developed and nontoxic. VITAL SIGNS:see workflow HEENT: Nonicteric sclerae, PERRLA, EOMI. Oropharynx clear. Moist mucous membranes. Conjunctivae appear well perfused. No thyroid mass. CHEST: Chest wall is nontender. HEART: Regular rate and rhythm without murmurs. LUNGS: Clear to auscultation bilaterally. ABDOMEN: Soft, positive bowel sounds, tender RUQ, no organomegaly.no flank tenderness SKIN: No rash, no excessive bruising, petechiae, or purpura. NEUROLOGIC: Cranial nerves II-XII intact without motor/sensory deficit. Psych: normal affect Vital Signs: Vital Signs: Last Vital Signs Temp 97.7 F 05/13/25 04:52 Pulse 74 05/13/25 04:52 Resp 10 L 05/13/25 04:52 BP 129/73 05/13/25 04:52 Pulse Ox 97 05/13/25 04:52 O2 Del Method Room Air 05/13/25 04:52 BMI result Body Mass Index 28.5 Results Labs 05/13/25 05:26 05/13/25 05:26 Labs: Short CBC 05/12/25 05/13/25 Range/Units 15:44 05:26 WBC 7.1 7.3 (4.8-10.8) X10*3/uL Hgb 14.7 14.2 (14.0-18.0) g/dl Hct 43.8 43.4 (42.0-52.0) % Plt Count 296 264 (160-400) X10*3/uL BMP 05/12/25 05/13/25 15:44 05:26 Sodium 139 142 Potassium 4.2 4.4 Chloride 106 108 Carbon Dioxide 23 25 BUN 13 10 Creatinine 0.78 0.79 Calcium 9.3 8.8 Liver Function 05/12/25 05/13/25 Range/Units 15:44 05:26 Total Bilirubin 1.2 H 1.0 (0.0-1.0) mg/dL Direct Bilirubin 0.5 (0.0-0.5) mg/dL AST 286 H 173 H (5-37) U/L ALT 292 H 259 H (0-40) U/L Alkaline Phosphatase 259 H 239 H (39-117) U/L Albumin 4.8 4.4 (3.5-5.0) g/dL Imaging MRI - abdomen: Attestation: I personally reviewed and interpreted this imaging study as follows: (large stone GB) Assessment and Plan (1) Cholelithiases: Qualifiers: Cholelithiasis location: gallbladder Status: Acute Plan 1/ Symptomatic cholelithiasis, possible localized hepatitis from continguous GB inflammation--no cbd defects to my read 2/ Panniculitis and attenuation of mesentry -uncertain etiology ddx: lymphoma, automimmune, neoplasia PLAN: 1/ Surgical consult, hold on ERCP for the moment 2/ If proceed with CCY maybe biopsy mesentry at the same time Procedures Date of Service Date of Service: 05/13/25
[2025-05-13] MEDS: metroNIDAZOLE/NS 500 MG/100 ML PIGGYBACK 100 MG IV ×2 (08:59→22:02)
--- NOTE | 2025-05-13 09:40 | P.PNGS_ITS ---
Subjective Subjective Date of Service: 05/13/25 Interval history: Denies abdominal pain overnight No nausea or vomiting No fever Physical Exam 2 Vital Signs: Vital Signs: Last Vital Signs Temp 98.6 F 05/13/25 09:14 Pulse 79 05/13/25 09:14 Resp 18 05/13/25 09:14 BP 135/64 05/13/25 09:14 Pulse Ox 97 05/13/25 09:14 O2 Del Method Room Air 05/13/25 09:14 BMI result Body Mass Index 28.4 Const: General: comfortable and no acute distress Resp: Effort & Inspection: normal respiratory effort Cardio: Rate: regular rate GI: Palpation (GI): Soft to palpation, not firm, nontender and no guarding Objective Data Active Medications Acetaminophen (Acetaminophen 325 Mg Tablet) 650 mg PO Q6H PRN PRN Reason: Pain, Mild 1-3,fever,headache Calcium Carbonate (Calcium Carbonate 750 Mg Tab.Chew) 750 mg PO Q4H PRN PRN Reason: Heartburn Dextrose (Dextrose 50 % 25 Gm/50 Ml Syringe) 25 gm IVPUSH Q15M PRN; Protocol PRN Reason: per Hypoglycemia Standing Ord. Glucose (Glucose Gel 15 Gm Gel..Gram.) 15 gm PO Q15M PRN; Protocol PRN Reason: per Hypoglycemia Standing Ord. Hydromorphone HCl (Hydromorphone Hcl 1 Mg/Ml Syringe) 0.5 mg IVPUSH Q4H PRN; Protocol PRN Reason: Pain, Severe (Pain Scale 7-10) Lactated Ringer's (Lr) 1,000 mls @ 125 mls/hr IVCONT .Q8H [facility] Last Admin: 05/13/25 06:04 Dose: 125 mls/hr Documented By: AURA Metronidazole (Flagyl) 500 mg in 100 mls @ 100 mls/hr IV Q12H [facility] Last Admin: 05/13/25 08:59 Dose: 100 mls/hr Documented By: MANUELITO Ceftriaxone Sodium 1 gm/ (Sodium Chloride) 50 mls @ 100 mls/hr IV Q24H [facility] Last Admin: 05/13/25 08:59 Dose: 100 mls/hr Documented By: MANUELITO Insulin Human Lispro (Insulin Lispro 100 Unit/Ml 3 Ml Vial) 0 unit SUBCUT Q6H [facility]; Protocol Last Admin: 05/13/25 06:04 Dose: Not Given Documented By: AURA Non-Admin Reason: NPO Ketorolac Tromethamine (Ketorolac Tromethamine 15 Mg/Ml Vial) 15 mg IVPUSH Q6H PRN PRN Reason: Pain, Moderate(Pain Scale 4-6) Magnesium Hydroxide (Milk Of Magnesia 30 Ml Oral.Susp) 30 ml PO DAILY PRN PRN Reason: Constipation Melatonin (Melatonin 3 Mg Tablet) 6 mg PO BEDTIME PRN PRN Reason: Insomnia Ondansetron HCl (Ondansetron Hcl 4 Mg/2 Ml Vial) 4 mg IVPUSH Q8H PRN PRN Reason: Nausea and Vomiting Polyethylene Glycol (Polyethylene Glycol 3350 17 Gm Powd.Pack) 17 gm PO DAILY PRN PRN Reason: Constipation Senna (Sennosides 8.6 Mg Tablet) 17.2 mg PO BEDTIME [facility] Last Admin: 05/12/25 21:59 Dose: 17.2 mg Documented By: AURA Sodium Chloride (0.9 % Sodium Chloride Flush 3 Ml Syringe) 3 ml IVFLUSH QSHIFT [facility] Last Admin: 05/13/25 07:02 Dose: Not Given Documented By: GLENDA Non-Admin Reason: IV Running Labs 05/13/25 05:26 05/13/25 05:26 Labs: Laboratory Results - last 24 hr 05/12/25 05/13/25 05/13/25 15:44 00:22 05:26 MCV 87.3 90.0 MCH 29.3 29.5 MCHC 33.6 32.7 RDW 13.7 14.1 Plt Count 296 264 MPV 9.9 10.1 Immature Gran % (Auto) 0.7 H 1.1 H Neut % (Auto) 67.1 66.0 Lymph % (Auto) 20.7 20.6 [place] % (Auto) 9.5 9.6 Eos % (Auto) 1.4 2.2 Baso % (Auto) 0.6 0.5 Lymph # (Auto) 1.5 1.5 [place] # (Auto) 0.7 0.7 Eos # (Auto) 0.1 0.2 Baso # (Auto) 0.0 0.0 Abs Immat Gran (auto) 0.05 H 0.08 H Absolute Neuts (auto) 4.8 4.8 Absolute Nucleated RBC 0.000 0.000 Nucleated RBC % (auto) 0.0 0.0 Anion Gap 14 13 Estim Creat Clear Calc 113.6 112.2 Estimated GFR > 60 > 60 POC Glucose 111 Random Glucose 216 H 105 Calcium 9.3 8.8 Total Bilirubin 1.2 H 1.0 Direct Bilirubin 0.5 AST 286 H 173 H ALT 292 H 259 H Alkaline Phosphatase 259 H 239 H Troponin I High Sens 6.1 D Total Protein 7.3 6.7 Albumin 4.8 4.4 05/13/25 06:07 MCV MCH MCHC RDW Plt Count MPV Immature Gran % (Auto) Neut % (Auto) Lymph % (Auto) [place] % (Auto) Eos % (Auto) Baso % (Auto) Lymph # (Auto) [place] # (Auto) Eos # (Auto) Baso # (Auto) Abs Immat Gran (auto) Absolute Neuts (auto) Absolute Nucleated RBC Nucleated RBC % (auto) Anion Gap Estim Creat Clear Calc Estimated GFR POC Glucose 110 Random Glucose Calcium Total Bilirubin Direct Bilirubin AST ALT Alkaline Phosphatase Troponin I High Sens Total Protein Albumin Procedures Date of Service Date of Service: 05/13/25 Progress Note: A&P Assessment and plan (1) Gallstones: Status: Acute Assessment and Plan: Has had no abdominal pain LFTs better Awaiting MRI Abdomen is soft and benign with no tenderness CAT scan also shows heterogenous mass in the mesenteric root - we will review with radiologist Imaging studies show that gallstones are not impacted on neck, gallbladder not distended Okay to have clear liquids Looks well overall No leukocytosis Clinically not acute cholecystitis We will follow at bedside Time Spent With Patient Time: Total time managing care of this patient today ____ minutes. Quality Stroke Does the patient have a stroke diagnosis?: No Reason for No Anti-thrombotic by Day Two: N/A - Med Ordered VTE Prior VTE?: No VTE Risk Level:: Medical - low VTE Device Contraindication: N/A - Device Ordered VTE Drug Contraindication: Treatment Not Indicated
--- NOTE | 2025-05-13 10:23 | PHA.MEDREC ---
Pharmacy Consult ? Medication Reconciliation Pharmacy has completed the medication reconciliation.Med rec complete, spoke to patient and compared with pharmacy claims history
[2025-05-13 12:21] LABS: Glucose, Whole Blood 159 mg/dL (60-115)
--- NOTE | 2025-05-13 13:37 | PM.EVENT ---
Event Note Date of Service: 05/14/25 Event Note: Seen on afternoon rounds Remains asymptomatic Denies abdominal pain, nausea or vomiting Wants to eat Abdomen is soft, benign, nontender, no Estevez's sign I have reviewed his MRCP - no acute cholecystitis, no CBD stones but there is note of possible stricture in the CBD Seen by GI - no ERCP planned at this time Still uncertain as to the etiology of episode of pain yesterday It is still possible that he may have passed the stone I will put him on the add on schedule tomorrow for laparoscopic cholecystectomy if he wants to proceed with this I explained this to his as well and this said that they will discuss this with me tomorrow Follow LFTs Okay to have regular diet Time Spent With Patient Time: Total time managing care of this patient today ____ minutes.
--- NOTE | 2025-05-13 15:13 | HO.PM.IMPN ---
Subjective Subjective Date of Service: 05/13/25 Interval History: Abdominal pain has been improved compared to last night. Reports pain is mostly epigastric Reports postprandial epigastric pain, described as cramping General surgery recommendations appreciated; plan for MRI abdomen pelvis, currently on clear liquid diet Review of Systems Review of Systems: Yes all other systems are reviewed and are negative Physical Exam Exam: Exam: General: A&O x3, oriented to time place person and situation, comfortable, no pain Cardiac: S1, S2 auscultated with no S3/4, no MRG. Well perfused; sternotomy scar old, 3 horizontal abdominal port wounds (bypass) Respiratory: Normal breath sounds auscultated throughout all lung zones, without wheezing, rales. Normal rate. GI/ : Abdominal tenderness to epigastrium on deep palpation, nontender in other regions, normal percussion, no hepatosplenomegaly, no jaundice or scleral icterus. MSK: Normal ambulation without pain at bony prominences or musculature Neurological: Normal neurological examination on overview, without obvious CN II-XII abnormalities. Vital Signs: Vital Signs: Last Vital Signs Temp 96.8 F 05/13/25 12:00 Pulse 80 05/13/25 12:00 Resp 18 05/13/25 12:00 BP 116/60 05/13/25 12:00 Pulse Ox 96 05/13/25 12:00 O2 Del Method Room Air 05/13/25 12:00 BMI result Body Mass Index 28.4 Objective Data Active Medications Acetaminophen (Acetaminophen 325 Mg Tablet) 650 mg PO Q6H PRN PRN Reason: Pain, Mild 1-3,fever,headache Calcium Carbonate (Calcium Carbonate 750 Mg Tab.Chew) 750 mg PO Q4H PRN PRN Reason: Heartburn Dextrose (Dextrose 50 % 25 Gm/50 Ml Syringe) 25 gm IVPUSH Q15M PRN; Protocol PRN Reason: per Hypoglycemia Standing Ord. Glucose (Glucose Gel 15 Gm Gel..Gram.) 15 gm PO Q15M PRN; Protocol PRN Reason: per Hypoglycemia Standing Ord. Hydromorphone HCl (Hydromorphone Hcl 1 Mg/Ml Syringe) 0.5 mg IVPUSH Q4H PRN; Protocol PRN Reason: Pain, Severe (Pain Scale 7-10) Lactated Ringer's (Lr) 1,000 mls @ 125 mls/hr IVCONT .Q8H [facility] Last Admin: 05/13/25 13:55 Dose: 125 mls/hr Documented By: MANUELITO Metronidazole (Flagyl) 500 mg in 100 mls @ 100 mls/hr IV Q12H [facility] Last Infusion: 05/13/25 10:05 Dose: Infused Documented By: MANUELITO Ceftriaxone Sodium 1 gm/ (Sodium Chloride) 50 mls @ 100 mls/hr IV Q24H [facility] Last Infusion: 05/13/25 09:43 Dose: Infused Documented By: MANUELITO Insulin Human Lispro (Insulin Lispro 100 Unit/Ml 3 Ml Vial) 0 unit SUBCUT Q6H [facility]; Protocol Last Admin: 05/13/25 13:54 Dose: 2 unit Documented By: MANUELITO Ketorolac Tromethamine (Ketorolac Tromethamine 15 Mg/Ml Vial) 15 mg IVPUSH Q6H PRN PRN Reason: Pain, Moderate(Pain Scale 4-6) Magnesium Hydroxide (Milk Of Magnesia 30 Ml Oral.Susp) 30 ml PO DAILY PRN PRN Reason: Constipation Melatonin (Melatonin 3 Mg Tablet) 6 mg PO BEDTIME PRN PRN Reason: Insomnia Ondansetron HCl (Ondansetron Hcl 4 Mg/2 Ml Vial) 4 mg IVPUSH Q8H PRN PRN Reason: Nausea and Vomiting Polyethylene Glycol (Polyethylene Glycol 3350 17 Gm Powd.Pack) 17 gm PO DAILY PRN PRN Reason: Constipation Senna (Sennosides 8.6 Mg Tablet) 17.2 mg PO BEDTIME [facility] Last Admin: 05/12/25 21:59 Dose: 17.2 mg Documented By: AURA Sodium Chloride (0.9 % Sodium Chloride Flush 3 Ml Syringe) 3 ml IVFLUSH QSHIFT [facility] Last Admin: 05/13/25 13:56 Dose: Not Given Documented By: MANUELITO Non-Admin Reason: IV Running Labs 05/13/25 05:26 05/13/25 05:26 Labs: Laboratory Results - last 24 hr 05/12/25 05/13/25 05/13/25 15:44 00:22 05:26 MCV 87.3 90.0 MCH 29.3 29.5 MCHC 33.6 32.7 RDW 13.7 14.1 Plt Count 296 264 MPV 9.9 10.1 Immature Gran % (Auto) 0.7 H 1.1 H Neut % (Auto) 67.1 66.0 Lymph % (Auto) 20.7 20.6 [place] % (Auto) 9.5 9.6 Eos % (Auto) 1.4 2.2 Baso % (Auto) 0.6 0.5 Lymph # (Auto) 1.5 1.5 [place] # (Auto) 0.7 0.7 Eos # (Auto) 0.1 0.2 Baso # (Auto) 0.0 0.0 Abs Immat Gran (auto) 0.05 H 0.08 H Absolute Neuts (auto) 4.8 4.8 Absolute Nucleated RBC 0.000 0.000 Nucleated RBC % (auto) 0.0 0.0 Anion Gap 14 13 Estim Creat Clear Calc 113.6 112.2 Estimated GFR > 60 > 60 POC Glucose 111 Random Glucose 216 H 105 Calcium 9.3 8.8 Total Bilirubin 1.2 H 1.0 Direct Bilirubin 0.5 AST 286 H 173 H ALT 292 H 259 H Alkaline Phosphatase 259 H 239 H Troponin I High Sens 6.1 D Total Protein 7.3 6.7 Albumin 4.8 4.4 05/13/25 05/13/25 06:07 12:16 MCV MCH MCHC RDW Plt Count MPV Immature Gran % (Auto) Neut % (Auto) Lymph % (Auto) [place] % (Auto) Eos % (Auto) Baso % (Auto) Lymph # (Auto) [place] # (Auto) Eos # (Auto) Baso # (Auto) Abs Immat Gran (auto) Absolute Neuts (auto) Absolute Nucleated RBC Nucleated RBC % (auto) Anion Gap Estim Creat Clear Calc Estimated GFR POC Glucose 110 159 H Random Glucose Calcium Total Bilirubin Direct Bilirubin AST ALT Alkaline Phosphatase Troponin I High Sens Total Protein Albumin Assessment and Plan (1) Atherosclerotic cardiovascular disease: Status: Acute (2) Status post aorto-coronary artery bypass graft: Status: Acute (3) CAD (coronary artery disease): Status: Acute (4) Primary hypertension: Status: Acute (5) T2DM (type 2 diabetes mellitus): Status: Acute (6) Type 2 diabetes mellitus with hyperglycemia: Status: Acute (7) Cholelithiases: Status: Acute (8) Transaminitis: Status: Acute (9) Abdominal pain: Status: Acute (10) Constipation: Status: Acute (11) Mesenteric mass: Status: Acute Plan 60-year-old male, history of CAD CABG x3, T2 DM on tirzepatide, orthostatic hypotension, HTN, HLD, presents with right upper quadrant abdominal pain intolerant of p.o. intake, admitted for workup for acute cholecystitis - revealing incidental mesenteric mass, severe constipation with possible stercoral colitis. Incidental mesenteric mass Incidentally identified on CT abdomen pelvis Localized lymphadenopathy Differential wide , including tumor, cyst, panniculitis. GI and general surgery both consulted and aware of patient's admission PLAN - clear liquid diet - plan for MRCP Abdominal pain - cholelithiasis - GERD (Tirzepatide) - mesenteric mass with ?Nonocclusive ischemia - stercoral colitis Multifactorial at this time No clear etiology as of yet Patient's abdominal pain has significantly improved compared to yesterday No evidence of sepsis PLAN - analgesia - relieve constipation - MRCP T2 DM A1c 7.14 January 2025 Hold tirzepatide ISS Clear liquid diet POC glucose t.i.d. & nocte Patient aware that we can not use his continuous glucose monitor, agreed with POC glucose checks as scheduled Hypertension Continue lisinopril 5 mg Low-sodium diet HLD Continue statin Cardiac diet CAD/ CABG X3 November 2024 Continue aspirin, statin and lisinopril Patient's metoprolol was discontinued due to orthostatic hypotension EKG negative for ischemic changes or acute findings Small callus left lateral upper foot Patient educated to obtain Podiatry consult as an outpatient Patient is entitled to the service based on his diabetes Patient currently wears diabetic shoes [employer] - VTE: Heparin 5000 t.i.d. - possible surgical intervention - CODE STATUS: Full code - DIET: Clear liquid diet Total time managing care of this patient today: 45 minutes. Quality Stroke Does the patient have a stroke diagnosis?: No Reason for No Anti-thrombotic by Day Two: N/A - Med Ordered VTE Prior VTE?: No VTE Risk Level:: Medical - low VTE Device Contraindication: N/A - Device Ordered VTE Drug Contraindication: Treatment Not Indicated
--- NOTE | 2025-05-13 16:41 | MHC.CM.PN ---
PT REPORTS HE LIVES WITH HIS AND IS INDEPENDENT WITH CARE HE HAS NO DME OR SERVICES COPY OF HCP REQUESTED, HE REPORTS HIS IS HIS AGENT PCP: JARAD CABALLERO DCP: HOME VIA PRIVATE TRANSPORT
[2025-05-13 17:17] LABS: Glucose, Whole Blood 224 mg/dL (60-115)
[2025-05-13 23:33] LABS: Glucose, Whole Blood 100 mg/dL (60-115)
[2025-05-14 06:08] VITALS: BP 120/65; PULSE 67; RESP 17; TEMP 36.3; O2SAT 96
[2025-05-14 06:17] LABS: Glucose, Whole Blood 139 mg/dL (60-115)
[2025-05-14 07:29] VITALS: BP 125/72; PULSE 72; RESP 16; TEMP 36.2; O2SAT 96
--- NOTE | 2025-05-14 08:01 | P.PNGS_ITS ---
Subjective Subjective Date of Service: 05/14/25 Interval history: He has been asymptomatic since yesterday Denies abdominal pain Tolerating diet well No nausea or vomiting Physical Exam 2 Vital Signs: Vital Signs: Last Vital Signs Temp 97.1 F 05/14/25 07:29 Pulse 72 05/14/25 07:29 Resp 16 05/14/25 07:29 BP 125/72 05/14/25 07:29 Pulse Ox 96 05/14/25 07:29 O2 Del Method Room Air 05/14/25 07:29 BMI result Body Mass Index 28.4 Const: General: comfortable and no acute distress Resp: Effort & Inspection: normal respiratory effort Cardio: Rate: regular rate GI: Other: No Estevez's sign Palpation (GI): Soft to palpation, not firm, nontender and no guarding Objective Data Active Medications Acetaminophen (Acetaminophen 325 Mg Tablet) 650 mg PO Q6H PRN PRN Reason: Pain, Mild 1-3,fever,headache Last Admin: 05/13/25 17:52 Dose: 650 mg Documented By: MANUELITO Calcium Carbonate (Calcium Carbonate 750 Mg Tab.Chew) 750 mg PO Q4H PRN PRN Reason: Heartburn Dextrose (Dextrose 50 % 25 Gm/50 Ml Syringe) 25 gm IVPUSH Q15M PRN; Protocol PRN Reason: per Hypoglycemia Standing Ord. Glucose (Glucose Gel 15 Gm Gel..Gram.) 15 gm PO Q15M PRN; Protocol PRN Reason: per Hypoglycemia Standing Ord. Hydromorphone HCl (Hydromorphone Hcl 1 Mg/Ml Syringe) 0.5 mg IVPUSH Q4H PRN; Protocol PRN Reason: Pain, Severe (Pain Scale 7-10) Lactated Ringer's (Lr) 1,000 mls @ 125 mls/hr IVCONT .Q8H [facility] Last Admin: 05/14/25 05:00 Dose: Not Given Documented By: GEORGE Non-Admin Reason: IV Running Metronidazole (Flagyl) 500 mg in 100 mls @ 100 mls/hr IV Q12H [facility] Last Infusion: 05/13/25 23:05 Dose: Infused Documented By: GEORGE Ceftriaxone Sodium 1 gm/ (Sodium Chloride) 50 mls @ 100 mls/hr IV Q24H [facility] Last Infusion: 05/13/25 09:43 Dose: Infused Documented By: MANUELITO Insulin Human Lispro (Insulin Lispro 100 Unit/Ml 3 Ml Vial) 0 unit SUBCUT Q6H [facility]; Protocol Last Admin: 05/14/25 06:18 Dose: Not Given Documented By: GEORGE Non-Admin Reason: No Insulin Coverage Ketorolac Tromethamine (Ketorolac Tromethamine 15 Mg/Ml Vial) 15 mg IVPUSH Q6H PRN PRN Reason: Pain, Moderate(Pain Scale 4-6) Magnesium Hydroxide (Milk Of Magnesia 30 Ml Oral.Susp) 30 ml PO DAILY PRN PRN Reason: Constipation Melatonin (Melatonin 3 Mg Tablet) 6 mg PO BEDTIME PRN PRN Reason: Insomnia Last Admin: 05/13/25 22:08 Dose: 6 mg Documented By: GEORGE Ondansetron HCl (Ondansetron Hcl 4 Mg/2 Ml Vial) 4 mg IVPUSH Q8H PRN PRN Reason: Nausea and Vomiting Polyethylene Glycol (Polyethylene Glycol 3350 17 Gm Powd.Pack) 17 gm PO DAILY PRN PRN Reason: Constipation Senna (Sennosides 8.6 Mg Tablet) 17.2 mg PO BEDTIME [facility] Last Admin: 05/13/25 22:02 Dose: 17.2 mg Documented By: GEORGE Sodium Chloride (0.9 % Sodium Chloride Flush 3 Ml Syringe) 3 ml IVFLUSH QSHIFT [facility] Last Admin: 05/13/25 22:58 Dose: Not Given Documented By: GEORGE Non-Admin Reason: IV Running Labs 05/13/25 05:26 05/13/25 05:26 Labs: Laboratory Results - last 24 hr 05/13/25 05/13/25 05/13/25 12:16 17:14 23:26 POC Glucose 159 H 224 H 100 05/14/25 06:10 POC Glucose 139 H Procedures Date of Service Date of Service: 05/14/25 Progress Note: A&P Assessment and plan (1) Cholelithiases: Status: Acute Assessment and Plan: No cholecystitis on imaging studies, no stone impaction on the neck No tenderness He has been asymptomatic CAT scan also shows this inflammatory mass in the mesenteric root I recommended to him doing a follow up CAT scan for this as this may be clinically significant He wants to be discharged today as he has been feeling well I will see him in the office next week repeat his CAT scan I explained to him that it is possible that he may have passed the stone through the common bile duct I therefore told him that he may benefit from cholecystectomy if this is the case He says that we will schedule this has an outpatient at some point Time Spent With Patient Time: Total time managing care of this patient today ____ minutes. Quality Stroke Does the patient have a stroke diagnosis?: No Reason for No Anti-thrombotic by Day Two: N/A - Med Ordered VTE Prior VTE?: No VTE Risk Level:: Medical - low VTE Device Contraindication: N/A - Device Ordered VTE Drug Contraindication: Treatment Not Indicated
[2025-05-14 09:33] LABS: Alanine Aminotransferase 186 U/L (0-40); Albumin Level 4.7 g/dL (3.5-5.0); Alkaline Phosphatase 227 U/L (39-117); Anion Gap 16 (12-20); Aspartate Amino Transferase 63 U/L (5-37); Blood Urea Nitrogen 12 mg/dL (9-16); Carbon Dioxide 24 mmol/L (22-29); Chloride 105 mmol/L (96-108); Creatinine Clr Calc Pharmacy 119.6; Estimated Glomerular Filt Rate > 60; Potassium 4.5 mmol/L (3.3-5.1); Sodium 140 mmol/L (135-145); Total Protein 7.3 g/dL (6.5-8.0)
--- NOTE | 2025-05-14 09:35 | P.PNGI_ITS ---
Subjective Subjective Date of Service: 05/14/25 Interval History: much improved no pain ok with PO diet Critical Care Time (minutes): 0 Physical Exam 2 Exam: Exam: EXAM: GENERAL: The patient is well developed and nontoxic. VITAL SIGNS:see workflow HEENT: Nonicteric sclerae, PERRLA, EOMI. Oropharynx clear. Moist mucous membranes. Conjunctivae appear well perfused. No thyroid mass. CHEST: Chest wall is nontender. HEART: Regular rate and rhythm without murmurs. LUNGS: Clear to auscultation bilaterally. ABDOMEN: Soft, positive bowel sounds, nontender, no organomegaly.no flank tenderness SKIN: No rash, no excessive bruising, petechiae, or purpura. NEUROLOGIC: Cranial nerves II-XII intact without motor/sensory deficit. Psych: normal affect Vital Signs: Vital Signs: Last Vital Signs Temp 97.1 F 05/14/25 07:29 Pulse 72 05/14/25 07:29 Resp 16 05/14/25 07:29 BP 125/72 05/14/25 07:29 Pulse Ox 96 05/14/25 07:29 O2 Del Method Room Air 05/14/25 07:29 BMI result Body Mass Index 28.4 Objective Data Labs 05/13/25 05:26 05/14/25 08:38 Labs: Laboratory Results - last 24 hr 05/13/25 05/13/25 05/13/25 12:16 17:14 23:26 Hold Purple Top Sodium Potassium Chloride Carbon Dioxide Anion Gap BUN Creatinine Estim Creat Clear Calc Estimated GFR POC Glucose 159 H 224 H 100 Random Glucose Total Bilirubin AST ALT Alkaline Phosphatase Total Protein Albumin 05/14/25 05/14/25 06:10 08:38 Hold Purple Top SEE NOTE Sodium 140 Potassium 4.5 Chloride 105 Carbon Dioxide 24 Anion Gap 16 BUN 12 Creatinine 0.74 Estim Creat Clear Calc 119.6 Estimated GFR > 60 POC Glucose 139 H Random Glucose 130 H Total Bilirubin 1.1 H AST 63 H ALT 186 H Alkaline Phosphatase 227 H Total Protein 7.3 Albumin 4.7 Procedures Date of Service Date of Service: 05/14/25 Progress Note: A&P Assessment and plan (1) Gallstones: Status: Acute Plan 1/ Gallstone 2/ mesenteric panniculitis PLAN: /1 improved, plan for o/p CCY per surgery 2/ repeat CT in few months to make sure resolution of panniculitis Time Spent With Patient Time: Total time managing care of this patient today ____ minutes. Quality Stroke Does the patient have a stroke diagnosis?: No Reason for No Anti-thrombotic by Day Two: N/A - Med Ordered VTE Prior VTE?: No VTE Risk Level:: Medical - low VTE Device Contraindication: N/A - Device Ordered VTE Drug Contraindication: Treatment Not Indicated
[2025-05-14 09:44] LABS: Calcium 9.4 mg/dL (8.4-10.2)
--- NOTE | 2025-05-14 11:08 | P.DS_ITS ---
DS: Providers Provider Date of Service: 05/14/25 Date of admission: 05/12/25 20:38 Date of discharge: 05/14/25 Primary care physician: Seth Boyer MD Consults: 05/12/25 20:40 Consult to Gastroenterology Routine Consulting Provider: Maria Del Carmen Desai Reason for consultation: gallstones abd pain Has provider been notified: Yes Consult to General Surgery Routine Consulting Provider: [facility] General Surgeons Reason for consultation: gallstones, ? acute cholecystitis Has provider been notified: Yes DS: Diagnosis Discharge Diagnosis (1) Gallstones: Status: Acute DS: Summary Hospital Course Hospital Course: From admission HPI: Hospital Course: Pt initially presented to the hospital under experiencing intractable RUQ abdominal pain with associated N/V. Workup in the ED showed transaminitis and included RUQ ultrasound and CTA of abdomen/pelvis which was concerning for possible acute cholecystitis. Pt underwent MRCP which showed cholelithiasis without acute cholecystitis and no impacted stone, though showed mild dilation of CBD and of the main pancreatic duct, as well as distal narrowing of CBD. Pt was seen by GI who held off on ERCP, and was also seen by General surgery who initially planned for cholecystectomy. However, patient's symptoms improved and operating room availability was limited, so pt will be discharged with plans to follow up with General surgery for elective outpatient cholecystectomy. Patient's CT of abdomen and pelvis also with incidental finding of mesenteric root heterogeneous low-attenuation mass of 11.6 x 4.8 x 12 cm with prominent mesenteric root lymph nodes and supraumbilical mesenteric panniculitis. Pt will need repeat CT prior to cholecystectomy, and should follow up with General surgery for possible biopsy during cholecystectomy. At time of discharge pt has been tolerating a solid diet and is no longer experiencing any abdominal pain or N/V. Pt is strongly encouraged to adhere to a low-fat diet and follow up with Dr. Rodney and General surgery in 1 week. Pt should continue all of his other home medications. For insulin-dependent type 2 diabetes, pt should continue home insulin dosing, as well as metformin, Jardiance, and Mounjaro For CAD s/p CABG, continue aspirin and statin For hypertension, continue lisinopril Time Attestation Discharge Coordination Time (in mins): 35 Quality: Safe Use of Opioids Does Pt have an Active Cancer Diagnosis on the Problem List?: No Quality: Stroke Does the patient have a stroke diagnosis?: No Physical Exam Exam: Exam: General: AOx3, no acute distress Resp: CTA bilaterally CVS: S1, S2, RRR GI: +BS, NT, no distention Skin: Warm, dry Neuro: Cranial nerves II-XII grossly intact bilaterally. Motor grossly intact bilaterally Extremities: No edema Psych: Appropriate affect Vital Signs: Vital Signs: Last Vital Signs Temp 97.1 F 05/14/25 07:29 Pulse 72 05/14/25 07:29 Resp 16 05/14/25 07:29 BP 125/72 05/14/25 07:29 Pulse Ox 96 05/14/25 07:29 O2 Del Method Room Air 05/14/25 07:29 BMI result Body Mass Index 28.4 DS: Data Data Completed and Pending Labs on day of discharge: Laboratory Results - last 24 hr 05/13/25 05/13/25 05/13/25 12:16 17:14 23:26 Hold Purple Top Sodium Potassium Chloride Carbon Dioxide Anion Gap BUN Creatinine Estim Creat Clear Calc Estimated GFR POC Glucose 159 H 224 H 100 Random Glucose Calcium Total Bilirubin AST ALT Alkaline Phosphatase Total Protein Albumin 05/14/25 05/14/25 06:10 08:38 Hold Purple Top SEE NOTE Sodium 140 Potassium 4.5 Chloride 105 Carbon Dioxide 24 Anion Gap 16 BUN 12 Creatinine 0.74 Estim Creat Clear Calc 119.6 Estimated GFR > 60 POC Glucose 139 H Random Glucose 130 H Calcium 9.4 D Total Bilirubin 1.1 H AST 63 H ALT 186 H Alkaline Phosphatase 227 H Total Protein 7.3 Albumin 4.7 Discharge Plan Discharge Anticipated Discharge Date/Time: 05/14/25 10:48 Patient Disposition: Home, Self-Care Discharge Diagnosis: Intractable abdominal pain with cholelithiasis Referrals: Hero Rodney MD [Physician, General Surgery] - 1 Week Po,Seth Caro MD [Primary Care Provider, Internal Medicine] - 1 Week Discharge Medications: Continued (DME) Diabetic shoes See Rx Instructions .Route .MEDSUPPLY Qty: 1 0RF Rx Instructions: As directed metformin 1,000 mg tablet 1,000 mg PO BID Qty: 180 3RF lisinopril 5 mg tablet 5 mg PO DAILY Qty: 90 0RF Jardiance 25 mg tablet 25 mg PO DAILY Qty: 30 0RF (DME) FreeStyle Pushpa 2 Sensor Kit See Rx Instructions .ROUTE .COMPLEX Qty: 7 3RF Dose Instruction: USE DIRECTED TO MONITOR BLOOD GLUCOSE DAILY. CHANGE SENSOR EVERY 14 DAYS Rx Instructions: USE DIRECTED TO MONITOR BLOOD GLUCOSE DAILY. CHANGE SENSOR EVERY 14 DAYS rosuvastatin 40 mg tablet 40 mg PO BEDTIME Mounjaro 2.5 mg/0.5 mL pen injector 2.5 mg subcut FR@0900 Rx Instructions: for 4 weeks multivitamin Tablet 1 tab PO DAILY aspirin [Adult Aspirin Regimen] 81 mg tablet,delayed release (DR/EC) 81 mg PO DAILY insulin glargine [Lantus Solostar U-100 Insulin] 100 unit/mL (3 mL) insulin pen 22 unit subcut BEDTIME Rx Instructions: or as directed Discharge Orders: Discharge Order (Routine); Ordered 05/14/25 Ordered By: Nahun Greene Activity on Discharge: As tolerated Stand Alone Forms: Patient Portal Discharge page Print Language: Nepali Activity Restrictions/Additional Instructions: Call Dr. Rodney for follow up next week Care Plan Goals: See below Health Concerns: Cholecystitis Cholelithiasis Intractable abdominal pain with nausea and vomiting Plan of Treatment: You were admitted to the hospital after experiencing right upper quadrant abdominal pain with associated nausea and vomiting and workup in the ED concerning for transaminitis and possible acute infected gallbladder. You underwent MRCP which showed cholelithiasis without acute cholecystitis though with mild dilation of your common bile duct, concerning for possible passed gallstone vs acute inflammation from retained stones. You were initially started on IV antibiotics but these were stopped when MRCP was negative for acute cholecystitis. You were seen and evaluated by both GI and General surgery, and your symptoms resolved by time of discharge. Given limited operating room availability, you will be discharged home for follow-up with General surgery for elective cholecystectomy. -- follow up with Dr. Rodney in general surgery in 1 week to arrange for elective cholecystectomy. You will need to undergo a repeat CT prior to surgery. -- avoid eating fatty or fried foods, which may re-inflame your gallbladder -- for incidental finding of mesenteric root mass on CT, f/u with general surgery for possible biopsy at time of gallbladder removal -- resume all of your other home medications Assessment: See discharge summary
--- NOTE | 2025-05-14 11:10 | MHC.CM.PN ---
PT CLEARED TO DC HOME TODAY WITH NO SERVICES TO TRANSPORT
== END 2025-05-14 11:16 | disposition home or self-care (01) ==
LOC: HO.ED 20:23 → HO.EDOVER 20:41 → HO.S3 05-13 07:39
PROVIDERS: Hospitalist; Internal Medicine; Physician Assistant Medical; Admitting Provider Nurse Practitioner Family; Emergency Provider Emergency Medicine; PCP Internal Medicine; Visit Provider Student in an Organized Health Care Education/Training Program
DX: K80.20 Calculus of gallbladder without cholecystitis without obstruction (principal); K65.4 Sclerosing mesenteritis; E78.5 Hyperlipidemia, unspecified; I10 Essential (primary) hypertension; K59.03 Drug induced constipation; L84 Corns and callosities; I25.10 Atherosclerotic heart disease of native coronary artery without angina pectoris; K21.9 Gastro-esophageal reflux disease without esophagitis; E11.9 Type 2 diabetes mellitus without complications; K52.89 Other specified noninfective gastroenteritis and colitis; Z95.1 Presence of aortocoronary bypass graft; Z79.4 Long term (current) use of insulin; Z79.82 Long term (current) use of aspirin; Z79.84 Long term (current) use of oral hypoglycemic drugs; Z79.899 Other long term (current) drug therapy
CPT/HCPCS: 36415; 74177; 74181; 76705; 80048; 80053; 80076; 82947; 84484; 85025; 93005; 99221; 99285; J0131; J0696; J1836; J7120; Q9967

== ENCOUNTER → 2025-05-12 15:09 | Outpatient (BNV) | payer OTHER, SELFPAY | PROVIDERS: Admitting Provider Nurse Practitioner Family; Emergency Provider Emergency Medicine; PCP Internal Medicine; Visit Provider Internal Medicine | DX: R07.9 Chest pain, unspecified (principal) | CPT/HCPCS: 93010 ==

== ENCOUNTER → 2025-05-12 15:29 | Outpatient (BNV) | payer OTHER, SELFPAY | PROVIDERS: Emergency Provider Emergency Medicine; PCP Internal Medicine; Visit Provider Radiology Diagnostic Radiology | DX: K65.4 Sclerosing mesenteritis (principal); R19.00 Intra-abdominal and pelvic swelling, mass and lump, unspecified site; K80.20 Calculus of gallbladder without cholecystitis without obstruction; K59.00 Constipation, unspecified; I25.10 Atherosclerotic heart disease of native coronary artery without angina pectoris; I70.0 Atherosclerosis of aorta | CPT/HCPCS: 74177; 76705 ==

== ENCOUNTER 2025-05-12 20:38 | Outpatient (BNV) | payer OTHER, SELFPAY | END 2025-05-13 10:17 | PROVIDERS: Admitting Provider Nurse Practitioner Family; Emergency Provider Emergency Medicine; PCP Internal Medicine; Visit Provider Radiology Diagnostic Radiology | DX: K80.20 Calculus of gallbladder without cholecystitis without obstruction (principal); K83.8 Other specified diseases of biliary tract; K86.89 Other specified diseases of pancreas | CPT/HCPCS: 74181 ==

== ENCOUNTER → 2025-05-12 20:38 | Outpatient (BNV) | payer OTHER, SELFPAY | PROVIDERS: Admitting Provider Nurse Practitioner Family; Emergency Provider Emergency Medicine; PCP Internal Medicine; Visit Provider Surgery | DX: K80.20 Calculus of gallbladder without cholecystitis without obstruction (principal) | CPT/HCPCS: 99222; 99232; 99499 ==

== ENCOUNTER → 2025-05-12 20:38 | Outpatient (BNV) | payer OTHER, SELFPAY | PROVIDERS: Admitting Provider Nurse Practitioner Family; Emergency Provider Emergency Medicine; PCP Internal Medicine; Visit Provider Nurse Practitioner Family | DX: K80.20 Calculus of gallbladder without cholecystitis without obstruction (principal); E11.65 Type 2 diabetes mellitus with hyperglycemia; R74.01 Elevation of levels of liver transaminase levels; R19.07 Generalized intra-abdominal and pelvic swelling, mass and lump; I10 Essential (primary) hypertension; K59.00 Constipation, unspecified; L84 Corns and callosities; Z95.1 Presence of aortocoronary bypass graft | CPT/HCPCS: 99222; 99232; 99239 ==

== ENCOUNTER → 2025-05-12 20:38 | Outpatient (BNV) | payer OTHER, SELFPAY | PROVIDERS: Admitting Provider Nurse Practitioner Family; Emergency Provider Emergency Medicine; PCP Internal Medicine; Visit Provider Internal Medicine Gastroenterology | DX: K80.20 Calculus of gallbladder without cholecystitis without obstruction (principal) | CPT/HCPCS: 99223; 99232 ==

== ENCOUNTER 2025-05-24 09:48 | Outpatient (AMB) | payer OTHER, SELFPAY ==
--- NOTE | 2025-05-24 09:50 | A.OFFVIS_ITS ---
Vital Signs 05/24/25 10:00 Height 5 ft 10.5 in Weight 202 lb BMI 28.6 BP 143/69 H Blood Pressure Location Rt brachial Position Sitting Pulse 69 Intake Visit Reasons: gallstones Intake Note: Patient seen at [facility] ED and admitted for abdominal pain. Here today for evaluation and treatment of gallstones. Patient c/o: pain on RUQ has subsided. Denies nausea, diarrhea. Imaging: MR MRCP~ 05-13-[address]~ 05-12-2025. Of note: Abdomen pelvis CT scheduled on 07-03-2024. Promotional Model Required: No Accompanied by: Cristin spouse Allergies semaglutide (From Ozempic) Adverse Reaction (Intermediate, Verified 05/24/25 09:55) burping Medication List - Last Reconciled 05/24/25 by Eddie Be MD aspirin (Adult Aspirin Regimen) 81 mg PO DAILY [Diabetic shoes As directed] empagliflozin (Jardiance) 25 mg PO DAILY flash glucose sensor (FreeStyle Pushpa 2 Sensor kit) USE DIRECTED TO MONITOR BLOOD GLUCOSE DAILY. CHANGE SENSOR EVERY 14 DAYS insulin glargine (Lantus Solostar U-100 Insulin) 22 units subcut BEDTIME lisinopril 5 mg PO DAILY metformin 1,000 mg PO BID multivitamin 1 tab PO DAILY rosuvastatin 40 mg PO BEDTIME HPI Comments Details: 60-year-old gentleman presents with history of epigastric and right upper quadrant abdominal pain in the setting of cholelithiasis. He is actually admitted to the hospital for biliary colic that has resolved on its own. Imaging in the past was indicative of cholelithiasis and he was also seen to have mesenteric panniculitis with possible inflammatory mass at the root of the mesentery of the small bowel as seen on CT scan. Follow-up MRCP indicated cholelithiasis without evidence of stone involvement in the ducts. His common bile duct was seen to be mildly dilated up to 7 mm without an abrupt cut off. There was a distal narrowing of the common bile duct which was felt of the time could be normal or might indicate stricture. There was also mild dilatation of the main pancreatic duct measuring up to 4 mm. Consideration was suggested for follow-up or nonemergent ERCP. Patient reports since then he has been fine. He denies any abdominal pain fevers chills nausea or vomiting. He has had normal bowel and bladder habits. He desires cholecystectomy. He does have a scheduled follow-up CT scan in June any plans on keeping this? no matter what happens?. Past abdominal surgical history is only indicative for open appendectomy. [facility] Medical History Atherosclerotic cardiovascular disease T2DM (type 2 diabetes mellitus) Multiple rib fractures Erectile dysfunction Cholelithiases Retinopathy, background, nonproliferative, mild Primary hypertension Ulcer of right great toe due to diabetes mellitus Type 2 diabetes mellitus with hyperglycemia HLD (hyperlipidemia) CAD (coronary artery disease) Gallstones Obesity (BMI 30-39.9) Blood pressure elevated without history of HTN Finger stiffness Trigger finger, left middle finger Trigger finger, left index finger Chest discomfort Trigger finger, right index finger Trigger finger, right middle finger Abnormal stress ECG with treadmill Diarrhea Asthma Surgical History Status post aorto-coronary artery bypass graft S/P CABG x 3 Hx of cardiac cath Hx of tonsillectomy Aftercare following bilateral shoulder joint replacement surgery History of appendectomy Family History Mother Emphysema lung Father Heart failure Brother Substance use disorder Mental health disorder Brother No problems noted. Brother No problems noted. Sister No problems noted. Daughter No problems noted. Son No problems noted. Son No problems noted. Social History Household Members: Spouse Housing: House Alcohol intake: current Alcohol intake frequency: a few times a week Alcohol type: beer Patient Tobacco Use Status: Never used Tobacco Tobacco use type: Cigarette e-Cigarette/Vaping Use: Never Used Second Hand Smoke Exposure: No service: No Current occupational status: employed Cognitive needs: No Hearing needs: No Vision needs: Yes (Glasses) Review of Systems Const All systems reviewed & are unremarkable except as noted in HPI and below Physical Exam Vital Signs: Last Vital Signs Pulse 69 05/24/25 10:00 BP 143/69 H 05/24/25 10:00 BMI result Body Mass Index 28.6 Const General: cooperative, healthy appearing, comfortable and no acute distress Orientation/consciousness: oriented to person, oriented to place and oriented to time HEENT Head: Yes normal to inspection, Yes normocephalic and Yes atraumatic Ears: hearing grossly normal bilaterally General nose exam: Normal external nose present Eyes Sclerae: sclerae normal Pupils: Equal, round and reactive pupils present EOM: EOMs intact bilaterally Neck Neck: Yes normal visual inspection Chest Other: Old sternotomy scar with mediastinal drain scars Chest palpation & inspection: normal inspection of the chest Cardio Rate: regular rate Rhythm: regular rhythm GI Other: Soft nontender nondistended no evidence of hepatosplenomegaly. Neuro General: oriented to person, oriented to place and oriented to time Cranial nerves: Yes CN's II-XII intact bilaterally and Yes Equal, round and reactive pupils present Assessment & Plan Assessment & Plan (1) Cholelithiases: Code(s): K80.20 - Calculus of gallbladder without cholecystitis without obstruction Category: Medical Qualifiers: Cholelithiasis location: gallbladder Cholecystitis presence: without cholecystitis Plan: I told the patient that cholecystectomy is indicated and I offered him laparoscopic possible open cholecystectomy. I reviewed with him in detail the risks are involved with such an undertaking. These include but are not limited to the risk of bleeding, the risk of infection, the risk of damage to bro rrounding structures both recognized and unrecognized at the time of surgery, the risk of retained common bile duct stones the risk of cystic duct stump leakage and the risk that the surgery would not solve his current problems with abdominal pain were all reviewed with him in detail. He told me that he understood. He told me that he carefully considered his options. He told me that he understood and accepted the risks of surgery and lastly he indicated that despite the risks he still wished to proceed with operative intervention. (2) Mesenteric mass: Code(s): K63.89 - Other specified diseases of intestine Category: Medical Plan: For the patient's mesenteric panniculitis he has a follow up CT scan scheduled in June of next year. He plans on keeping that appointment? no matter what?. I told him that his gallbladder required removal in any scenario and then it was happy to do that for him and added that we would review the results of the CT scan when they became available. He said he was happy with that plan as well. Coding Level of Care Code New Pt Level 3 (68668) Diagnoses Cholelithiases K80.20 Cholelithiasis location: gallbladder Cholecystitis presence: without cholecystitis Mesenteric mass K63.89 Time Spent (min) 30 Comment Time spent in patient visit, record review and coordination of care
[2025-05-24 10:00] VITALS: BP 143/69; PULSE 69; BMI 28.6
== END 2025-05-24 10:13 | disposition home or self-care (01) ==
LOC: HO.HGS 09:50
PROVIDERS: Visit Provider Surgery
DX: K80.20 Calculus of gallbladder without cholecystitis without obstruction (principal); K63.89 Other specified diseases of intestine
CPT/HCPCS: 99204

== ENCOUNTER 2025-06-04 09:36 | Outpatient (AMB) | payer OTHER, SELFPAY ==
[2025-06-04 10:06] VITALS: BP 122/70; PULSE 74; BMI 27.8
--- NOTE | 2025-06-04 10:06 | MHC.OFFVIS ---
Vital Signs 06/04/25 10:06 Height 5 ft 10 in Weight 194 lb 0.108 oz BMI 27.8 BP 122/70 Blood Pressure Location Rt brachial Position Sitting Pulse 74 Pulse Source Pulse Oximeter Intake Visit Reasons: HS pt/clear for gallbladder surgery Allergies semaglutide (From Ozempic) Adverse Reaction (Intermediate, Verified 05/24/25 09:55) burping Medication List - Last Reconciled 06/04/25 by Santi George MD aspirin (Adult Aspirin Regimen) 81 mg PO DAILY [Diabetic shoes As directed] empagliflozin (Jardiance) 25 mg PO DAILY flash glucose sensor (FreeStyle Pushpa 2 Sensor kit) USE DIRECTED TO MONITOR BLOOD GLUCOSE DAILY. CHANGE SENSOR EVERY 14 DAYS insulin glargine (Lantus Solostar U-100 Insulin) 22 units subcut BEDTIME lisinopril 5 mg PO DAILY metformin 1,000 mg PO BID multivitamin 1 tab PO DAILY rosuvastatin 40 mg PO BEDTIME HPI Comments Details: Wilberto returns for follow-up regarding coronary artery disease. He also needs preoperative evaluation for gallbladder surgery. Originally seen regarding an abnormal stress test. Multiple cardiovascular risk factors including diabetes, hypertension, dyslipidemia. Noninvasive workup with exercise perfusion imaging led to coronary CTA and then a diagnostic catheterization. That revealed multivessel coronary disease. Eventually, had coronary artery bypass surgery. From the cardiac standpoint, he does not have any symptoms like exertional angina or in fact anything along those lines. Recently diagnosed with gallbladder stones with plan to proceed with cholecystectomy. [facility] Medical History Atherosclerotic cardiovascular disease T2DM (type 2 diabetes mellitus) Multiple rib fractures Erectile dysfunction Cholelithiases Retinopathy, background, nonproliferative, mild Primary hypertension Ulcer of right great toe due to diabetes mellitus Type 2 diabetes mellitus with hyperglycemia HLD (hyperlipidemia) CAD (coronary artery disease) Gallstones Obesity (BMI 30-39.9) Blood pressure elevated without history of HTN Finger stiffness Trigger finger, left middle finger Trigger finger, left index finger Chest discomfort Trigger finger, right index finger Trigger finger, right middle finger Abnormal stress ECG with treadmill Diarrhea Asthma Surgical History Status post aorto-coronary artery bypass graft S/P CABG x 3 Hx of cardiac cath Hx of tonsillectomy Aftercare following bilateral shoulder joint replacement surgery History of appendectomy Family History Mother Emphysema lung Father Heart failure Brother Substance use disorder Mental health disorder Brother No problems noted. Brother No problems noted. Sister No problems noted. Daughter No problems noted. Son No problems noted. Son No problems noted. Social History Household Members: Spouse Housing: House Alcohol intake: current Alcohol intake frequency: a few times a week Alcohol type: beer Patient Tobacco Use Status: Never used Tobacco Tobacco use type: Cigarette e-Cigarette/Vaping Use: Never Used Second Hand Smoke Exposure: No service: No Current occupational status: employed Cognitive needs: No Hearing needs: No Vision needs: Yes (Glasses) Review of Systems Const Denies weakness ENT Denies dizziness Card Denies chest pain, Denies chest pain with activity, Denies syncope, Denies rapid heart rate, Denies pedal edema, Denies edema, Denies leg edema, Denies lightheadedness, Denies palpitations, Denies dyspnea, Denies dyspnea on exertion and Denies orthopnea Resp Denies cough, Denies dyspnea and Denies dyspnea on exertion GI Denies hematochezia and Denies change in stool character Musc Denies abnormal gait, Denies muscle cramps, Denies muscle weakness, Denies numbness, Denies radiating pain into limb and Denies tingling Neuro Denies abnormal gait, Denies dizziness, Denies syncope, Denies numbness, Denies tingling and Denies weakness Endo Denies palpitations Physical Exam Vital Signs: Last Vital Signs Pulse 74 06/04/25 10:06 BP 122/70 06/04/25 10:06 BMI result Body Mass Index 27.8 Const General: comfortable and no acute distress Orientation/consciousness: patient oriented x3 HEENT Other: Unremarkable Head: Yes normal to inspection Neck Neck: Yes normal visual inspection Chest Chest palpation & inspection: normal inspection of the chest Resp Auscultation: clear to auscultation bilaterally Cardio Palpation: normal PMI Heart sounds: S1 normal heart sound present, S2 normal heart sound present, no gallops, no murmurs and no rubs GI Palpation (GI): Soft to palpation Back/Spine/Pelvis Other: unremarkable Skin General skin exam: no rashes or lesions noted Neuro General: patient oriented x3 Extrem General: Yes normal to inspection Psych Mental Status: mental status grossly normal Assessment & Plan Assessment & Plan (1) Atherosclerotic cardiovascular disease: Code(s): I25.10 - Atherosclerotic heart disease of [place] coronary artery without angina pectoris Category: Medical (2) Type 2 diabetes mellitus with hyperglycemia: Comment: [facility] Code(s): E11.65 - Type 2 diabetes mellitus with hyperglycemia Category: Medical (3) Primary hypertension: Code(s): I10 - Essential (primary) hypertension Category: Medical (4) Hypercholesterolemia: Code(s): E78.00 - Pure hypercholesterolemia, unspecified Category: Medical (5) Preoperative cardiovascular examination: Code(s): Z01.810 - Encounter for preprocedural cardiovascular examination Category: Medical Plan Overall, multiple cardiovascular risk factors, multivessel coronary disease, status post coronary artery bypass surgery. He is generally stable in that regard without any ongoing issues. Continue long-term aspirin. Has been off beta-blockers due to orthostatic dizziness. Due to abnormal LFTs related to the gallbladder issue, may hold off on statins for the time being. Once the LFTs normalize can resume. We discussed about this today. With regard to the gallbladder surgery, may proceed as planned. Intermediate cardiac risk. Perioperative complications including myocardial infarction discussed. He understands and accepts the risks. Recent EKG reviewed and unremarkable. Otherwise, follow up in 6 months time. Discussion Notes I have cleared the patient for his upcoming cholecystectomy. I discussed with him that due to his history of open-heart surgery and diabetes, his procedural risk is classified as intermediate. I explained that while any surgery carries a small risk of a cardiac event, this procedure is necessary. We also reviewed his abnormal liver lab results, which are likely due to the gallstone. I recommended he temporarily discontinue his rosuvastatin until his liver function returns to normal after the surgery, and he agreed. Patient was informed and verbally consented to the use of an ambient scribe for clinic note documentation during this visit. Patient Instructions: - Your risk for this surgery is considered intermediate (medium) because of your past heart surgery and history of diabetes. - Please stop taking your cholesterol medication, rosuvastatin, for now. - You can start taking the cholesterol medication again after your surgery, once your liver test results have returned to normal. - You can call the surgeon's office to schedule your procedure. Coding Level of Care Code Est Pt Level 4 (38976) Add On Problem Visit Only Diagnoses Atherosclerotic cardiovascular disease I25.10 Type 2 diabetes mellitus with hyperglycemia E11.65 Primary hypertension I10 Hypercholesterolemia E78.00 Preoperative cardiovascular examination Z01.810
--- OUTSIDE RECORDS SUMMARY | 2025-06-04 11:01 | XMS_ITS | Encounter Summary ---
Author Organization [facility] Address [address] [place] [address] Phone Care Team Providers Care Extractor Filler Name Role Phone Wallace Sweet MD Primary Care Provider [phone] Encounter Details Date Type Department Care Team (Latest Contact Info) Description 05/28/2022 Transcribe Orders Virtual Department [address] [place] [address] Anabelle Ro PA-C [address] [place] [address] [email or web address] Abnormal liver diagnostic imaging (Primary Dx); Fatty [...] obstruction documented in this encounter Care Teams Extractor Filler Relationship Specialty Start Date End Date Wallace Sweet MD [email or web address] PCP - General Family Medicine 09/02/17 documented as of this encounter Additional Source Comments The information contained in this document represents components of the legal health record. It is not the complete legal health record.[facility]
--- OUTSIDE RECORDS SUMMARY | 2025-06-04 11:01 | XMS_ITS | Clinical Summary ---
Author Organization [facility] Address [address] [place] [address] Phone Care Team Providers Care Outside Industrial Sales Representative Name Role Phone Wallace Sweet MD Primary Care Provider [phone] Allergies No known active allergies Medications metFORMIN [...] 1 tablet by mouth daily. Active omega 3-tdc-mui-fish oil 1,000 mg (120 mg-180 mg) Cap [...] Barton MD - 09/17/2022 11:00 AM EDT [facility] Patient Name: Wilberto Conway Attending MD:: SAMI BARTON MD, Procedure Date: 09/17/2022 11:00 AM Date of : 1965 Age: 57 Admit Type: Outpatient Gender: Male Room: [facility] Referring MD: WALLACE SWEET MD Exam Type: Colonoscopy Indications: Colon cancer screening in patient at [facility]: Family history of 1st-degree relative with colon [...] monitored continuously. The Olympus adult variable colonoscope [id number] #5 was introduced through the anus and [...] 11:00 AM Procedure Code(s): --- Professional --- 60313, Colonoscopy, flexible; diagnostic, including collection of specimen(s) by brushing or washing, when performed (separateprocedure) --- Technical --- 20888, Colonoscopy, flexible; diagnostic, including collection of specimen(s) by brushing or washing, when performed (separateprocedure) Diagnosis Code(s): --- Professional --- Z83.71, Family history of colonic polyps --- Technical --- Z83.71, Family history of colonic polyps CPT copyright 2021 [employer]. All rights reserved. The codes documented in this report are preliminary and upon systems management consultant reviewmay be revised to meet current compliance requirements. Procedure Date: 09/17/2022 11:00:[address] [place] [id number] Wallace Sweet MD GI PROCEDURE ORDERABLES Final Re sult * (ABNORMAL) Comprehensive metabolic panel (09/02/2017 3:05 PM EDT) SODIUM 137 133 - 146 mmol/L [facility] POTASSIUM 4.5 3.3 - 5.1 mmol/L [facility] CHLORIDE 98 96 - 108 mmol/L [facility] CO2 26 21 - 35 mmol/L [facility] BUN 14 6 - 19 mg/dL [facility] CREATININE 0.70 0.5 - 1.5 mg/dL [facility] GLUCOSE 255(H) 70 - 99 mg/dL [facility] ALBUMIN 4.8 3.9 - 4.8 g/dL [facility] TOTAL PROTEIN 7.7 6.5 - 8.0 g/dL [facility] CALCIUM 9.5 8.4 - 10.3 mg/dL [facility] ALKALINE PHOSPHATASE 90 39 - 117 U/L [facility] TOTAL BILIRUBIN 0.6 0.0 - 1.2 mg/dL [facility] AST 20 0 - 37 U/L [facility] ALT 28 0 - 40 U/L [facility] GLOBULIN 2.9 1 - 4.8 g/dL [facility] EGFR 109 >59 mL/min/1.7 3m2 [facility] Comment:If patient is black, multiply result by 1.159. The eGFR calculation has changed from the MDRD equation to the CKD-EPI equation as of August 17, 2017. ANION GAP 18 10 - 20 mmol/L [facility] Blood 09/02/2017 3:05 PM EDT 09/02/2017 3:08 PM EDT us Giovanni Kraus MD LAB BLOOD BKR ORDERABLES Nicole grace Result [facility] [address] [place], [place] [id number] from Last 3 Months or Most Recently Relevant to Health Maintenance Insurance [facility] O [facility] H[facility] O Care Teams Outside Industrial Sales Representative Relationship Specialty Start Date End Date Wallace Sweet MD PCP - General Family Medicine 09/02/17 Additional Source Comments The information contained in this document represents components of the legal health record. It is not the complete legal health record.[facility]
--- OUTSIDE RECORDS SUMMARY | 2025-06-04 11:01 | XMS_ITS | Encounter Summary ---
Author Organization [facility] Address [address] [place] [address] Phone Care Team Providers Care Metal Buildings Assembler Name Role Phone Wallace Sweet MD Primary Care Provider [phone] Encounter Details Date Type Department Care Team (Late st Contact Info) Description 09/17/2022 Procedure Pass [facility] Endoscopy Admitting Dept Virtual Department [address] [place] [address] Social History Tobacco Use Types Packs/Day Years Used Date Smoking Tobacco: Never Smokeless Tobacco: Never Alcohol Use Standard Drinks/Week Comments Not Currently 0 (1 standard drink = 0.6 oz pur e alcohol) occassionally Intimate Partner Violence Answer Date R ecorded Are you denied basic needs [facility] as food, clothing, or medical care? No 09/17/2022 In the past 12 months have y ou been in a relationship with a person who hurts, threatens, or tries to control you? No 09/17/2022 Are you denied basic needs s [facility] as food, clothing, or medical care? No [...] on filedocumented in this encounter Care Teams Metal Buildings Assembler Relationship Specialty Start Date End Date Wallace Sweet MD [email or web address] PCP - General Family Medicine 09/02/17 documented as of this encounter Additional Source Comments The information contained in this document represents components of the legal health record. It is not the complete legal health record.[facility]
--- OUTSIDE RECORDS SUMMARY | 2025-06-04 11:01 | XMS_ITS | Encounter Summary ---
Author Organization [facility] Address [address] [place] [address] Phone Care Team Providers Care Electronic Technician Name Role Phone Wallace Sweet MD Primary Care Provider [phone] Encounter Details Date Type Department Care Team (Late st Contact Info) Description 09/07/2017 Procedure Pass [facility] Endoscopy Admitting Dept Virtual Department [address] [place] [address] Social History Tobacco Use Types Packs/Day Years [...] on filedocumented in this encounter Care Teams Electronic Technician Relationship Specialty Start Date End Date Wallace Sweet MD [email or web address] PCP - General Family Medicine 09/02/17 documented as of this encounter Additional Source Comments The information contained in this document represents components of the legal health record. It is not the complete legal health record.[facility]
--- OUTSIDE RECORDS SUMMARY | 2025-06-04 11:01 | XMS_ITS | Encounter Summary ---
Author Organization [facility] Address [address] [place] [address] Drive [address] [place] [address] Phone Care Team Providers Care Semiconductor Processor Name Role Phone Wallace Sweet MD Primary Care Provider [phone] Encounter Details Date Type Department Care Team (Latest Contact Info) Description 06/18/2021 Transcribe Orders Virtual Department [address] [place] [address] Anabelle Ro PA-C [address] [place] [address] [email or web address] Abnormal findings on diagnostic imaging of liver [...] obstruction documented in this encounter Care Teams Semiconductor Processor Relationship Specialty Start Date End Date Wallace Sweet MD [email or web address] PCP - General Family Medicine 09/02/17 documented as of this encounter Additional Source Comments The information contained in this document represents components of the legal health record. It is not the complete legal health record.[facility]
--- OUTSIDE RECORDS SUMMARY | 2025-06-04 11:01 | XMS_ITS | Encounter Summary ---
Author Organization [facility] Address [address] [place] [address] Phone Care Team Providers Care Document Analyst Name Role Phone Wallace Sweet MD Primary Care Provider [phone] Encounter Details Date Type Department Care Team (Latest Contact Info) Description 09/02/2017 Transcribe Orders [facility] [address] [address] Giovanni Kraus MD [address] [place] [address] [email or web address] Steatohepatitis (Primary Dx) Social History Tobacco Use [...] EDT) SODIUM 137 133 - 146 mmol/L [facility] POTASSIUM 4.5 3.3 - 5.1 mmol/L [facility] CHLORIDE 98 96 - 108 mmol/L [facility] CO2 26 21 - 35 mmol/L [facility] BUN 14 6 - 19 mg/dL [facility] CREATININE 0.70 0.5 - 1.5 mg/dL [facility] GLUCOSE 255(H) 70 - 99 mg/dL [facility] ALBUMIN 4.8 3.9 - 4.8 g/dL [facility] TOTAL PROTEIN 7.7 6.5 - 8.0 g/dL [facility] CALCIUM 9.5 8.4 - 10.3 mg/dL [facility] ALKALINE PHOSPHATASE 90 39 - 117 U/L [facility] TOTAL BILIRUBIN 0.6 0.0 - 1.2 mg/dL [facility] AST 20 0 - 37 U/L [facility] ALT 28 0 - 40 U/L [facility] GLOBULIN 2.9 1 - 4.8 g/dL [facility] EGFR 109 >59 mL/min/1.7 3m2 [facility] Comment:If patient is black, multiply result by 1.159. The eGFR calculation has changed from the MDRD equation to the CKD-EPI equation as of August 17, 2017. ANION GAP 18 10 - 20 mmol/L [facility] Blood 09/02/2017 3:05 PM EDT 09/02/2017 3:08 PM EDT us Giovanni Kraus MD LAB BLOOD BKR ORDERABLES Nicole l Result [facility] [address] [place] [address] * CBC (09/02/2017 3:05 PM EDT) WBC 8.19 3.40 - 11.20 K/uL [facility] RBC 5.29 4.50 - 5.50 M/uL [facility] HGB 15.4 13.0 - 17.0 g/dL [facility] HCT 46.1 40.0 - 51.0 % [facility] PLT 311 130 - 400 K/uL [facility] MCV 87.1 79.0 - 98.0 fL [facility] MCH 29.1 27.0 - 34.8 pg [facility] MCHC 33.4 31.5 - 36.0 g/dL [facility] RDW 12.9 10.8 - 14.6 % [facility] MPV 10.8 9.4 - 12.4 fl [facility] NRBC 0.00 /100 WBCs [facility] ABSOLUTE NRBC 0.00 K/uL [facility] Blood 09/02/2017 3:05 PM EDT 09/02/2017 3:08 PM EDT us Giovanni Kraus MD LAB BLOOD BKR ORDERABLES Nicole l Result [address] [address] documented in this encounter Visit Diagnoses Diagnosis Steatohepatitis- Primary Other chronic nonalcoholic liver disease documented in this encounter Care Teams Document Analyst Relationship Specialty Start Date End Date Wallace Sweet MD [email or web address] PCP - General Family Medicine 09/02/17 documented as of this encounter Additional Source Comments The information contained in this document represents components of the legal health record. It is not the complete legal health record.[facility]
== END 2025-06-04 10:27 | disposition home or self-care (01) ==
LOC: HO.HCS 09:37
PROVIDERS: PCP Internal Medicine; Visit Provider Internal Medicine
DX: I25.10 Atherosclerotic heart disease of native coronary artery without angina pectoris (principal); E11.65 Type 2 diabetes mellitus with hyperglycemia; I10 Essential (primary) hypertension; E78.00 Pure hypercholesterolemia, unspecified; Z01.810 Encounter for preprocedural cardiovascular examination
CPT/HCPCS: 99214; G2211